=== PATIENT | male | born 1950 | race Caucasian/White ===

== ENCOUNTER 2018-11-26 08:29 | Inpatient (IN) | payer OTHER ==
[2018-11-26] MEDS ORDERED: SODIUM CHLORIDE 1,000 ML IV STA ×2 (09:03→11:08)
[2018-11-26] MEDS ORDERED: morphine CARPU-JECT 2 MG/1 ML DISP.SYRIN IVPUSH ONE (09:03)
[2018-11-26] MEDS ORDERED: ONDANSETRON 4 MG/2 ML VIAL IVPUSH ONE (09:06)
[2018-11-26] MEDS ORDERED: MORPHINE SULFATE 2 MG/ML VIAL ONE (09:29)
[2018-11-26] MEDS ORDERED: ONDANSETRON 4 MG/2 ML VIAL ONE (09:30)
[2018-11-26 10:05] LABS: BASO % 0.4 % (0-2.0); EOS % 0.7 % (0-4.5); HEMATOCRIT 39.4 % (35.4-49); HEMOGLOBIN 14.1 GM/dL (11.7-16.9); LYMPH % 12.5 % (8-40); MCH 28.9 pg (25.7-33.7); MCHC 35.7 g/dl (32.0-35.9); MEAN CELL VOLUME 80.9 fl (80-96); MEAN PLT VOLUME 9.7 fl (7.5-11.1); MONO % 9.4 % (3.8-10.2); PLATELET COUNT 90 K/MM3 (134-434); RBC 4.87 M/mm3 (4.00-5.60); RDW 15.3 % (11.9-15.9); WHITE BLOOD COUNT 9.8 K/mm3 (4.0-10.0)
--- NOTE | 2018-11-26 10:20 | PDOC ---
History of Present Illness - General Chief Complaint: Pain Stated Complaint: ABDOMINAL PAIN Time Seen by Provider: 11/26/18 09:02 History Source: Patient Exam Limitations: No Limitations - History of Present Illness Travel History: No Initial Comments: 11/26/18 10:27 67-year-old male presents to ED with complaints of diarrhea for the past few days now with generalized abdominal pain greater in the epigastric region. Patient states has had no fever chills but now is nauseous. Patient with history of hepatitis C, asthma, diabetes, and liver disease. Patient denies abdominal distention, history of gastritis, or diverticulitis Timing/Duration: reports: constant, getting worse Quality: reports: moderate, cramping, sharpness Abdominal Pain Onset Location: reports: epigastric, periumbilical Pain Radiation: reports: no radiation Activities at Onset: reports: none Aggravating Factors: improves with: None Alleviating Factors: improves with: None Past History - Travel Traveled outside of the country in the last 30 days: No Close contact w/someone who was outside of country & ill: No - Past Medical History Allergies/Adverse Reactions: Allergies Allergy/AdvReac Type Severity Reaction Status Date / Time No Known Allergies Allergy Verified 05/01/16 18:56 Home Medications: Ambulatory Orders Cyclobenzaprine HCl [Flexeril -] 0 mg PO DAILY 11/26/18 Donepezil HCl 10 mg PO DAILY 11/26/18 Gabapentin 0 mg PO DAILY 11/26/18 Glipizide [Glipizide ER] 0 mg PO BID 11/26/18 Nadolol 0 mg PO DAILY 11/26/18 Potassium Chloride [Klor-Con] 0 meq PO DAILY 11/26/18 Sitagliptin Phosphate [Januvia] 0 mg PO BID 11/26/18 Spironolactone 0 mg PO DAILY 11/26/18 Asthma: Yes COPD: No Diabetes: Yes Liver Disease: Yes (Fatty liver) - Suicide/Smoking/Psychosocial Hx Smoking Status: No Smoking History: Never smoked Have you smoked in the past 12 months: No Number of Cigarettes Smoked Daily: 0 Information on smoking cessation initiated: No Hx Alcohol Use: No Drug/Substance Use Hx: No Substance Use Type: None Hx Substance Use Treatment: No Patient Lives Alone: No Lives with/in: spouse/SO Abd/GI Specific PMHX - Complaint Specific PMHX Colitis: No Diverticulitis: No Gall Bladder Disease: No GERD: No Hepatitis: Yes Irritable Bowel Synd (IBS): No Pancreatitis: No Review of Systems - Review of Systems Able to Perform ROS?: Yes Constitutional: Yes: Loss of Appetite, Weakness HEENTM: No: Symptoms Reported Respiratory: No: Symptoms reported Cardiac (ROS): No: Symptoms Reported ABD/GI: Yes: Diarrhea, Nausea, Poor Appetite, Indigestion. No: Vomiting Musculoskeletal: No: Symptoms Reported Integumentary: No: Symptoms Reported Neurological: No: Symptoms reported Endocrine: No: Symptoms Reported Hematologic/Lymphatic: No: Symptoms Reported *Physical Exam - Vital Signs Last Vital Signs Temp Pulse Resp BP Pulse Ox 97.7 F 95 H 16 114/55 L 97 11/26/18 08:30 11/26/18 08:30 11/26/18 08:30 11/26/18 08:30 11/26/18 08:30 - Physical Exam General Appearance: Yes: Nourished, Appropriately Dressed. No: Apparent Distress HEENT: positive: EOMI, RTIIKA, TMs Normal, Pharynx Normal, Scleral Icterus (R), Scleral Icterus (L). negative: Pale Conjunctivae Neck: positive: Supple Respiratory/Chest: positive: Lungs Clear, Normal Breath Sounds. negative: Respiratory Distress, Accessory Muscle Use Cardiovascular: positive: Regular Rhythm, Regular Rate. negative: Murmur Gastrointestinal/Abdominal: positive: Normal Bowel Sounds, Soft, Tenderness ( epigastric and right epigastric and upper periumbilical). negative: Distended Musculoskeletal: negative: CVA Tenderness Extremity: positive: Normal Capillary Refill. negative: Pedal Edema Integumentary: positive: Normal Color, Warm, Moist Neurologic: positive: Normal Mood/Affect, Motor Strength 5/5 (ambulatory) Moderate Sedation - Procedure Monitoring Vital Signs: Procedure Monitoring Vital Signs Temperature 97.7 F 11/26/18 08:30 Pulse Rate 95 H 11/26/18 08:30 Respiratory Rate 16 11/26/18 08:30 Blood Pressure 114/55 L 11/26/18 08:30 O2 Sat by Pulse Oximetry (%) 97 11/26/18 08:30 ED Treatment Course - LABORATORY CBC & Chemistry Diagram: 11/26/18 09:38 11/26/18 11:50 Medical Decision Making - Medical Decision Making 11/26/18 10:02 CC: Diarrhea for 3 days with upper abdominal pain now with nausea. Patient with history of hepatitis C and diabetes Exam: Upper abdominal tenderness bilateral eye icterus Plan: Labs, urine, abdominal CT, morphine, IV fluids and protonic's 11/26/18 11:07 Laboratory Tests 11/26/18 11/26/18 11/26/18 09:38 09:38 09:38 WBC 9.8 Hgb 14.1 Hct 39.4 Plt Count 90 L Neutrophils % 77.0 Lactic Acid 3.7 H* Ammonia 139.36 H Patient ordered for second lactic acid, IV fluids along with lactulose. Patient pending CT 11/26/18 13:57 Laboratory Tests 11/26/18 11:50 Lipase 82 11/26/18 15:02 X-ray shows prominent heart with no acute chest pathology. Patient went to CT awaiting results. 11/26/18 17:10 Case discussed with hospitalist and will admit to [facility]. CT results pending. *DC/Admit/Observation/Transfer Diagnosis at time of Disposition: Hepatitis C, Hyperammonemia, Abdominal pain, Hyperbilirubinemia - Discharge Dispostion Decision to Admit order: Yes - Referrals - Patient Instructions - Post Discharge Activity
[2018-11-26] MEDS ORDERED: PANTOPRAZOLE SODIUM 40 MG/100 ML BAG IVPB ONE (10:34)
[2018-11-26] MEDS ORDERED: PANTOPRAZOLE SODIUM 40 MG in SODIUM CHLORIDE 100 ML IVPB ONE (10:37)
[2018-11-26] MEDS ORDERED: LACTULOSE 20 GM/30 ML UDC (FOR ORAL USE ONLY) PO ONE (11:06)
[2018-11-26 11:12] LABS: URINE APPEARANCE CLEAR; URINE BILIRUBIN NEGATIVE (<2.0 mg/dL); URINE GLUCOSE (UA) 3+ (NEGATIVE); URINE KETONE TRACE (NEGATIVE); URINE LEUK ESTERASE NEGATIVE (NEGATIVE); URINE NITRITE NEGATIVE (NEGATIVE); URINE PROTEIN NEGATIVE (NEGATIVE); URINE UROBILINOGEN 4.0 E.U/dl mg/dL (0.2-1.0)
[2018-11-26 11:22] LABS: URINE COLOR YELLOW
[2018-11-26] MEDS ORDERED: LACTULOSE 20 GM/30 ML UDC (FOR ORAL USE ONLY) ONE (11:30)
[2018-11-26 12:13] LABS: VENOUS PH 7.39 (7.32-7.42); VENOUS PO2 43.9 mmHg (28-48)
[2018-11-26 12:24] LABS: INR 1.25 (0.83-1.09); PROTHROMBIN TIME (PATIENT) 14.8 SEC (9.7-13.0)
[2018-11-26 12:50] LABS: ALBUMIN 2.7 g/dl (3.4-5.0); ALK PHOS 88 U/L (45-117); ANION GAP 12 MMOL/L (8-16); BILIRUBIN,TOTAL 4.6 mg/dL (0.2-1); BLOOD UREA NITROGEN 25 mg/dL (7-18); CALCIUM 7.3 mg/dL (8.5-10.1); CHLORIDE 98 mmol/L (98-107); CO2 23 mmol/L (21-32); CREATININE 1.1 mg/dL (0.55-1.3); POTASSIUM 3.8 mmol/L (3.5-5.1); SGOT/AST 60 U/L (15-37); SGPT/ALT 48 U/L (13-61); SODIUM 133 mmol/L (136-145); TOT PROT 6.3 g/dl (6.4-8.2)
[2018-11-26 12:58] LABS: GLUCOSE,RANDOM 312 mg/dL (74-106)
[2018-11-26 13:56] LABS: LIPASE 82 U/L (73-393)
--- NOTE | 2018-11-26 16:21 | EKG ---
Test Reason : Blood Pressure : / mmHG Vent. Rate : 090 BPM Atrial Rate : 090 BPM P-R Int : 172 ms QRS Dur : 150 ms QT Int : 438 ms P-R-T Axes : 048 -06 139 degrees QTc Int : 535 ms NORMAL SINUS RHYTHM LEFT BUNDLE BRANCH BLOCK ABNORMAL ECG WHEN COMPARED WITH ECG OF 21-JUL-2010 05:10, VENT. RATE HAS INCREASED BY 39 BPM QT HAS LENGTHENED Confirmed by KELLI BARAJAS, CHELY ([id number]) on 11/26/2018 4:20:55 PM Referred By: Confirmed By:CHELY PEREIRA MD
[2018-11-26] MEDS ORDERED: PROCHLORPERAZINE INJECTION 10 MG/2 ML VIAL IVPB PRN (17:51)
[2018-11-26] MEDS ORDERED: LACTATED RINGERS SOLUTION 1,000 ML/1,000 ML INFUS.BAG IV SCH (18:00)
--- NOTE | 2018-11-26 18:06 | HP ---
CHIEF COMPLAINT: ' Abdominal pain, nausea and diarrhoea" PCP: Dr. Horan HISTORY OF PRESENT ILLNESS: Patient is a 67 year old male presented to the ED with the chief complaint of " Abdominal pain, nausea and diarrhoea x 3 days". As per the patient, he developed abdominal pain suddenly, located mostly in the epigastric area, stabbing in nature, initially mild that got worse to 7/10 in intensity, non radiating. Aggravated with food intake. It was associated with nausea and watery diarrhoea > 10 episodes/day, no mucus, no blood. His symptoms got worse hence came in to the ED for further evaluation and treatment. In the ED, he had one episode of coffee ground emesis after he took the contrast. No prior episodes of vomiting. Patient reports he had EGD and Colonoscopy remotely, was found to have polyps which was removed. Doesn't remember the details or the GI doctor's name. Denies any sick contact, fever, chills, rigors, sweating, chest pain, sob, cough , palpitation. Bladder habit normal. Sleep normal. Appetite decreased. ER course was notable for: (1) Afebrile, no leukocytosis, lactic acidosis of 3.7, T. bli 4.6, Ammonia 139 , Random glucose 312 (2) Abdominal/Pelvis CT: Cirrhosis, pancreatitis, ?acute inflammation/ infectious colitis, vs. possible portal colopathy, L sided colonic fecal retention (3) EKG: NSR, Qtc 535 (4) IV NS Recent Travel: None PAST MEDICAL HISTORY: DM; Hepatitis C(unsure if he was treated); Asthma; HTN; Anemia; cirrhosis, portal hypertension PAST SURGICAL HISTORY: B/L cataract removal, Left arm cellulitis with an abscess s/p drainage Social History: Smoking: Denies Alcohol: Occasionally Drugs: Denies Family History: Non contributory Occupation: retired, worked at [employer] Allergies No Known Allergies Allergy (Verified 05/01/16 18:56) HOME MEDICATIONS: Home Medications Medication Instructions Recorded Cyclobenzaprine HCl [Flexeril -] 0 mg PO DAILY 11/26/18 Donepezil HCl 10 mg PO DAILY 11/26/18 Gabapentin 0 mg PO DAILY 11/26/18 Glipizide [Glipizide ER] 0 mg PO BID 11/26/18 Nadolol 0 mg PO DAILY 11/26/18 Potassium Chloride [Klor-Con] 0 meq PO DAILY 11/26/18 Sitagliptin Phosphate [Januvia] 0 mg PO BID 11/26/18 Spironolactone 0 mg PO DAILY 11/26/18 REVIEW OF SYSTEMS CONSTITUTIONAL: Absent: fever, chills, diaphoresis, generalized weakness, malaise, loss of appetite, weight change HEENT: Absent: rhinorrhea, nasal congestion, throat pain, throat swelling, difficulty swallowing, mouth swelling, ear pain, eye pain, visual changes CARDIOVASCULAR: Absent: chest pain, syncope, palpitations, irregular heart rate, lightheadedness , peripheral edema RESPIRATORY: Absent: cough, shortness of breath, dyspnea with exertion, orthopnea, wheezing, stridor, hemoptysis GASTROINTESTINAL: Present: abdominal pain, nausea, vomiting, diarrhea Absent: abdominal distension, constipation, melena, hematochezia GENITOURINARY: Absent: dysuria, frequency, urgency, hesitancy, hematuria, flank pain, genital pain MUSCULOSKELETAL: Absent: myalgia, arthralgia, joint swelling, back pain, neck pain SKIN: Absent: rash, itching, pallor HEMATOLOGIC/IMMUNOLOGIC: Absent: easy bleeding, easy bruising, lymphadenopathy, frequent infections ENDOCRINE: Absent: unexplained weight gain, unexplained weight loss, heat intolerance, cold intolerance NEUROLOGIC: Absent: headache, focal weakness or paresthesias, dizziness, unsteady gait, seizure, mental status changes, bladder or bowel incontinence PSYCHIATRIC: Absent: anxiety, depression, suicidal or homicidal ideation, hallucinations. PHYSICAL EXAMINATION Vital Signs - 24 hr 11/26/18 08:30 Temperature 97.7 F Pulse Rate 95 H Respiratory 16 Rate Blood Pressure 114/55 L O2 Sat by Pulse 97 Oximetry (%) GENERAL: Middle aged male, lying in bed, nauseaous, Awake, alert, and fully oriented, in no acute distress. EYES: Icterus +, no pallor, EOM intact. THROAT: Dry mucous membranes. NECK: Supple, no JVD LUNGS: B/L lungs clear, no added sounds. HEART: Regular rate and rhythm, normal S1 and S2 without murmur. ABDOMEN: Ascities +, distended veins, shifting dullness +, Soft, tenderness diffusely, BS +, Hepatosplenomegaly couldnt be appreciated. UPPER EXTREMITIES: 2+ pulses, warm, well-perfused. No cyanosis. No clubbing. No peripheral edema. LOWER EXTREMITIES: 2+ pulses, warm, well-perfused. No calf tenderness. No peripheral edema. NEUROLOGICAL: No facial droop, power 5.5 in all extremities, sensation intact Cranial nerves II-XII intact. Normal speech. Gait not observed. PSYCHIATRIC: Cooperative. Good eye contact. Appropriate mood and affect. SKIN: Warm, dry, normal turgor, petechia on the Lower extremities. Laboratory Results - last 24 hr 11/26/18 11/26/18 11/26/18 09:38 09:38 09:38 WBC 9.8 RBC 4.87 Hgb 14.1 Hct 39.4 MCV 80.9 MCH 28.9 MCHC 35.7 RDW 15.3 Plt Count 90 L MPV 9.7 Absolute Neuts (auto) 7.6 Neutrophils % 77.0 Lymphocytes % 12.5 D Monocytes % 9.4 Eosinophils % 0.7 Basophils % 0.4 Nucleated RBC % 0 PT with INR INR PTT (Actin FS) VBG pH POC VBG pCO2 POC VBG pO2 Mixed VBG HCO3 Sodium Cancelled Potassium Cancelled Chloride Cancelled Carbon Dioxide Cancelled Anion Gap Cancelled BUN Cancelled Creatinine Cancelled Creat Clearance w eGFR Cancelled Random Glucose Cancelled Lactic Acid 3.7 H* Calcium Cancelled Magnesium Cancelled Total Bilirubin Cancelled AST Cancelled ALT Cancelled Alkaline Phosphatase Cancelled Ammonia Troponin I Total Protein Cancelled Albumin Cancelled Lipase Cancelled Urine Color Urine Appearance Urine pH Ur Specific [place] Urine Protein Urine Glucose (UA) Urine Ketones Urine Blood Urine Nitrite Urine Bilirubin Urine Urobilinogen Ur Leukocyte Esterase 11/26/18 11/26/18 11/26/18 09:38 10:12 11:50 WBC RBC Hgb Hct MCV MCH MCHC RDW Plt Count MPV Absolute Neuts (auto) Neutrophils % Lymphocytes % Monocytes % Eosinophils % Basophils % Nucleated RBC % PT with INR 14.80 H INR 1.25 H PTT (Actin FS) 27.0 VBG pH POC VBG pCO2 POC VBG pO2 Mixed VBG HCO3 Sodium Potassium Chloride Carbon Dioxide Anion Gap BUN Creatinine Creat Clearance w eGFR Random Glucose Lactic Acid Calcium Magnesium Total Bilirubin AST ALT Alkaline Phosphatase Ammonia 139.36 H Troponin I Total Protein Albumin Lipase Urine Color Yellow Urine Appearance Clear Urine pH 6.0 Ur Specific [place] 1.026 Urine Protein Negative Urine Glucose (UA) 3+ H Urine Ketones Trace H Urine Blood Negative Urine Nitrite Negative Urine Bilirubin Negative Urine Urobilinogen 4.0 e.u/dl Ur Leukocyte Esterase Negative 11/26/18 11/26/18 11:50 11:59 WBC RBC Hgb Hct MCV MCH MCHC RDW Plt Count MPV Absolute Neuts (auto) Neutrophils % Lymphocytes % Monocytes % Eosinophils % Basophils % Nucleated RBC % PT with INR INR PTT (Actin FS) VBG pH 7.39 POC VBG pCO2 37.0 L POC VBG pO2 43.9 Mixed VBG HCO3 22.2 Sodium 133 L Potassium 3.8 Chloride 98 Carbon Dioxide 23 Anion Gap 12 BUN 25 H Creatinine 1.1 Creat Clearance w eGFR > 60 Random Glucose 312 H* Lactic Acid Calcium 7.3 L Magnesium Total Bilirubin 4.6 H AST 60 H ALT 48 Alkaline Phosphatase 88 Ammonia Troponin I 0.02 Total Protein 6.3 L Albumin 2.7 L Lipase 82 Urine Color Urine Appearance Urine pH Ur Specific [place] Urine Protein Urine Glucose (UA) Urine Ketones Urine Blood Urine Nitrite Urine Bilirubin Urine Urobilinogen Ur Leukocyte Esterase Abdomen/Pelvis CT with contrast: Concentric continuous wall edema is seen along the length of the cecum and ascending colon with possible additional involvement of the transverse colon - ? representing acute inflammatory/ infectious colitis versus possible portal colopathy. Moderate left-sided colonic fecal retention. There is possible mild concentric wall thickening involving several mid abdominal small bowel loops - ? due to etiologies such as enteritis, advanced hepatic disease, or hypoproteinemia. Hepatic cirrhosis is again noted in comparison to a 2010 CT study. Splenomegaly is again seen which appears mildly increased. There is possible mild edematous swelling of the pancreatic head and body. Clinical/laboratory correlation is suggested in regards to possible acute pancreatitis. There also appears to be mild peripancreatic edema which may be secondary to pancreatitis versus on the basis of generalized edema. Varices are noted as on the prior study. Interval development of a small to moderate amount of ascites is noted. Cholelithiasis. ASSESSMENT/PLAN: Patient is a 67 year old male with significant past medical history of DM; Hepatitis C(unsure if he was treated); Asthma; HTN; Anemia; cirrhosis, portal hypertension presented to the ED with the chief complaint of " Abdominal pain, nausea and diarrhoea x 3 days". # Diarrhoea could be from viral gastroenteritis c/o diarrhoea x 3 days, watery, non bloody, no mucus. Patient reported to another physician he was on abx for "Gall bladder"- r/o c. diff (ordered) Continue IV NS @ 125 mls.hr Stool studies ordered Will send flu # Upper GI bleed one episode of coffee ground emesis. Started on PPI drip. Keep NPO. Hb 14, repeat Hb 12.8 Questionable melana. Plan was to start on Octreotide drip for possible variceal bleed but not started because of prolonged Qtc and no indication at this time. Appreciate GI consult # Ascites Ascites with hx of portal hypertension. Treat empirically with IV Ceftriaxone 1gm daily (discussed with Dr. Pardo). # Portal hypertension Continue Nadolol (home dose). Doppler of portal vein and hepatic veins ordered. # Lactic acidosis Lactic acid 3.7. was given IV fluids, repeat lactic acid 4.7. About 500 mls of bolus NS was given and repeat lactic acid ordered. Trend lactic acid It could be due to dehydration # Hyperammonemia- no signs of encephalopathy Ammonia level 139. Could be from liver disease. Ammonia in 2016 was 80 # Cholelithiasis Abdominal ultrasound ordered to r/o cholecystitis. # Elevated transaminitis T. bili 4.6, has been higher in the past. Add Direct bilirubin. Repeat liver enzymes in AM. Ultrasound of abdomen pending. Hepatitis panel pending. # Prolonged Qtc 535 Repeat EKG pending. Avoid qtc prolonging agents. # Thrombocytopenia could be from liver disease. Platelet count 90. At baseline compared to past labs during his visits. No AC. # DM-uncontrolled Random sugar 312. Cover with Insulin sliding scale. Finger stick glucose monitoring. Watch for hypoglycemic episodes. # FEN IV NS @ 125 mls/hr Electrolytes WNL NPO # Prophylaxis For DVT: On SCDs, no ac due to thromocytopenia For GI: On Protonix drip # Code Status: Full Code # Dispo: Admit to Tele for tachycardia and possibility of using Octreotide. Duration of stay unknown. Case discussed with Dr. Barrios and Dr. Pardo. Visit type - Emergency Visit Emergency Visit: Yes ED Registration Date: 11/26/18 Care time: The patient presented to the Emergency Department on the above date and was hospitalized for further evaluation of their emergent condition. - New Patient This patient is new to me today: Yes Date on this admission: 11/26/18 - Critical Care Critical Care patient: No
--- NOTE | 2018-11-26 18:07 | HP ---
CHIEF COMPLAINT: abd pain, nausea/vomiting PCP: Dr. Horan HISTORY OF PRESENT ILLNESS: 67M w/ pmhx of DM, Hep C, asthma, HTN, anemia presents with a 3 day history of abd pain, nausea, and diarrhea. Pain is localized to mid-abdominal region and is worsened with food and laying down, alleviated when sitting up. He admits to having diarrhea about 10-15 times a day, more frequently at night, but denies any blood or mucus, he does admit to watery and foul-smelling stool. He denies any sick contacts and currently lives in a house with his , son, and daughter. He additionally denies chest pain, shortness of breath, dysuria, hematuria, sick contacts. ER course was notable for: (1) Na 133, Lac 3.7, Glu 312, Lac 3.7, now 4.7, T Bili 4.6, AST/ALT 60/48, Alk P 88, Lip 82 (2) 2L NS, Lactulose, Zofran and Morphine given (3) BCx, UCx, Utox, EKG showed QTc 535, CTAP showed ?acute inflammation/ infectious colitis, vs. possible portal colopathy, L sided colonic fecal retention Recent Travel: DR, 1 year ago PAST MEDICAL HISTORY: DM Hepatitis C Asthma HTN Anemia PAST SURGICAL HISTORY: B/l cataract sx L arm sx (had cellulitis) Social History: Smoking: Denies Alcohol: Occasionally Drugs: Denies Family History: Grandmother - DM Denies hx of cancer Allergies No Known Allergies Allergy (Verified 05/01/16 18:56) HOME MEDICATIONS: Home Medications Medication Instructions Recorded Cyclobenzaprine HCl [Flexeril -] 0 mg PO DAILY 11/26/18 Donepezil HCl 10 mg PO DAILY 11/26/18 Gabapentin 0 mg PO DAILY 11/26/18 Glipizide [Glipizide ER] 0 mg PO BID 11/26/18 Nadolol 0 mg PO DAILY 11/26/18 Potassium Chloride [Klor-Con] 0 meq PO DAILY 11/26/18 Sitagliptin Phosphate [Januvia] 0 mg PO BID 11/26/18 Spironolactone 0 mg PO DAILY 11/26/18 REVIEW OF SYSTEMS CONSTITUTIONAL: -f/c, -generalized weakness, +loss of appetite HEENT: -difficulty swallowing, -ear pain, -eye pain, -visual changes CARDIOVASCULAR: -chest pain, -palpitations, -irregular heart rate, + lightheadedness RESPIRATORY: -cough, -sob, -paul, -wheezing GASTROINTESTINAL: +mid-abd pain, +nausea, +vomiting, +diarrhea, +melena GENITOURINARY: -dysuria, -urgency, -frequency, -hematuria, -flank pain MUSCULOSKELETAL: -myalgia, -back pain, -neck pain NEUROLOGIC: +headache, +dizziness, -mental status changes PHYSICAL EXAMINATION Vital Signs - 24 hr 11/26/18 08:30 Temperature 97.7 F Pulse Rate 95 H Respiratory 16 Rate Blood Pressure 114/55 L O2 Sat by Pulse 97 Oximetry (%) GENERAL: AAOx3. No apparent acute distress. Resting in bed, but uncomfortable. HEENT: AT/NC. EOMI. RITIKA. Dry mucus membranes. Scleral icterus. No visible erythema or exudates noted in pharynx. LUNGS: CTA B/L. No wheezes noted. Symmetric chest rise. HEART: Irregular rhythm. Tachycardic. S1, S2. No murmurs noted. ABDOMEN: Soft, diffuse tenderness to palpation in all 4Q's. Visible veins. GI: Visible stool in rectal vault, soft, brown. No visible hemorrhoids noted or palpated upon LAUREN, no blood noted. Normal rectal tone. No masses/lesions noted. No masses palpated upon prostate exam, minimal tenderness. MUSCULOSKELETAL: 5/5 muscle strength in u/l b/l extremities. NEUROLOGICAL: Cranial nerves II-XII intact. Normal speech. PSYCHIATRIC: Cooperative. Good eye contact. Appropriate mood and affect. SKIN: Petechia noted on b/l feet. Laboratory Results - last 24 hr 11/26/18 11/26/18 11/26/18 09:38 09:38 09:38 WBC 9.8 RBC 4.87 Hgb 14.1 Hct 39.4 MCV 80.9 MCH 28.9 MCHC 35.7 RDW 15.3 Plt Count 90 L MPV 9.7 Absolute Neuts (auto) 7.6 Neutrophils % 77.0 Lymphocytes % 12.5 D Monocytes % 9.4 Eosinophils % 0.7 Basophils % 0.4 Nucleated RBC % 0 PT with INR INR PTT (Actin FS) VBG pH POC VBG pCO2 POC VBG pO2 Mixed VBG HCO3 Sodium Cancelled Potassium Cancelled Chloride Cancelled Carbon Dioxide Cancelled Anion Gap Cancelled BUN Cancelled Creatinine Cancelled Creat Clearance w eGFR Cancelled Random Glucose Cancelled Lactic Acid 3.7 H* Calcium Cancelled Magnesium Cancelled Total Bilirubin Cancelled AST Cancelled ALT Cancelled Alkaline Phosphatase Cancelled Ammonia Troponin I Total Protein Cancelled Albumin Cancelled Lipase Cancelled Urine Color Urine Appearance Urine pH Ur Specific [place] Urine Protein Urine Glucose (UA) Urine Ketones Urine Blood Urine Nitrite Urine Bilirubin Urine Urobilinogen Ur Leukocyte Esterase 11/26/18 11/26/18 11/26/18 09:38 10:12 11:50 WBC RBC Hgb Hct MCV MCH MCHC RDW Plt Count MPV Absolute Neuts (auto) Neutrophils % Lymphocytes % Monocytes % Eosinophils % Basophils % Nucleated RBC % PT with INR 14.80 H INR 1.25 H PTT (Actin FS) 27.0 VBG pH POC VBG pCO2 POC VBG pO2 Mixed VBG HCO3 Sodium Potassium Chloride Carbon Dioxide Anion Gap BUN Creatinine Creat Clearance w eGFR Random Glucose Lactic Acid Calcium Magnesium Total Bilirubin AST ALT Alkaline Phosphatase Ammonia 139.36 H Troponin I Total Protein Albumin Lipase Urine Color Yellow Urine Appearance Clear Urine pH 6.0 Ur Specific [place] 1.026 Urine Protein Negative Urine Glucose (UA) 3+ H Urine Ketones Trace H Urine Blood Negative Urine Nitrite Negative Urine Bilirubin Negative Urine Urobilinogen 4.0 e.u/dl Ur Leukocyte Esterase Negative 11/26/18 11/26/18 11:50 11:59 WBC RBC Hgb Hct MCV MCH MCHC RDW Plt Count MPV Absolute Neuts (auto) Neutrophils % Lymphocytes % Monocytes % Eosinophils % Basophils % Nucleated RBC % PT with INR INR PTT (Actin FS) VBG pH 7.39 POC VBG pCO2 37.0 L POC VBG pO2 43.9 Mixed VBG HCO3 22.2 Sodium 133 L Potassium 3.8 Chloride 98 Carbon Dioxide 23 Anion Gap 12 BUN 25 H Creatinine 1.1 Creat Clearance w eGFR > 60 Random Glucose 312 H* Lactic Acid Calcium 7.3 L Magnesium Total Bilirubin 4.6 H AST 60 H ALT 48 Alkaline Phosphatase 88 Ammonia Troponin I 0.02 Total Protein 6.3 L Albumin 2.7 L Lipase 82 Urine Color Urine Appearance Urine pH Ur Specific [place] Urine Protein Urine Glucose (UA) Urine Ketones Urine Blood Urine Nitrite Urine Bilirubin Urine Urobilinogen Ur Leukocyte Esterase ASSESSMENT/PLAN: 67M w/ pmhx of DM, Hep C, asthma, HTN, anemia presents with a 3 day history of abd pain, nausea, and diarrhea. #Abdominal pain/nausea/diarrhea; Ddx includes viral gastroenteritis vs. portal HTN 2/2 cirrhosis vs. C.diff -Pt has had abd pain and nausea for the past 3 days. He also reported to the GI doctor that he had been on antibiotics recently because for his gall bladder. -C.diff/Stool cx/Ova and parasites ordered -Flu swab ordered #Upper GI bleed; Pt was noted to have coffee ground emesis and reports melena, per the ED staff. -start Protonix drip -Per GI, EGD was discussed with pt to r/o esophageal varices -Repeat CBC, Hgb this AM stable at 14.1 -IVf #Ascites; Pt has a hx of portal HTN -CTAP done in 2009 showed cirrhosis; although pt is unable to confirm diagnosis as he is a poor historian. Based on medication list presented by patient (ie. Spironolactone) his PCP may be treating him for possible portal hypertension due to cirrhosis. -Per GI, will hold on Octreotide for now due to prolonged QTc of 535. Will repeat EKG and transfer to tele as pt is tachycardic with prolonged QTc and will need cardiac monitoring if Octreotide drip needs to be started in the future. -Abd U/s ordered -Will also start Ceftriaxone 1 gm QD IVPB since patient has chronic liver disease and has a ? upper GI bleed #Portal HTN -Cont home meds: Nadolol 20 mg PO QD -R/u Abd U/S with doppler of portal and hepatic vein #Elevated Lactate; 3.7 > 4.7 -NS @ 125 -repeat lactate pending #Hyperammonemia; Pt does not currently have sign of hepatic encephalopathy, although was given dose of Lactulose by ED -Pt also had history of elevated ammonia in the past (2016, it was 80) -Monitor for signs of encephalopathy #Cholelithiasis -Abd U/S to r/o acute cholecystitis #Hyperbilirubinemia -T Bili 4.6, but pt has a history of elevated T bili per records. Will order fractionated bilirubin #Thrombocytopenia; Currently 90 -will repeat CBC. Not currently on AC #DM; hyperglycemic at 312. Uncontrolled -BGMs/ISS ACHS -hold home Glypizide, Aspart, Novolog -repeat BGMs #Prophylaxis -Protonix drip -SCDs #FEN -NS @ 125 -[facility]se in AM (Na) -NPO dispo -full code -admit to tele - Visit type - Emergency Visit Emergency Visit: Yes ED Registration Date: 11/26/18 Care time: The patient presented to the Emergency Department on the above date and was hospitalized for further evaluation of their emergent condition. - New Patient This patient is new to me today: Yes Date on this admission: 11/26/18 - Critical Care Critical Care patient: No
[2018-11-26] MEDS ORDERED: SODIUM CHLORIDE 1,000 ML IV SCH (18:30)
[2018-11-26] MEDS ORDERED: OCTREOTIDE ACETATE 1,200 MCG in DEXTROSE 5%-WATER - 488 ML IVPB SCH (19:15)
--- NOTE | 2018-11-26 19:16 | PN ---
Teaching Attending Note Name of Resident: Regina Lopes ATTENDING PHYSICIAN STATEMENT I saw and evaluated the patient. I reviewed the resident's note and discussed the case with the resident. I agree with the resident's findings and plan as documented. SUBJECTIVE: CC: N/V/D x 3 days HPI: 67 y/o male with h/o Hep C , DM , diabetic neuropathy , possible cirrhosis, asthma, and anemia who presented with 3 days history of N/V/Diarrhea. He is poor historian, but reports N/V/D x 3 days with black stool. RN in ER reports his emesis as coffee ground . he denies any fever. he reports decrease in urination. he denies cough. abd pain is generalized. denies recent Abx or NSAIDs use. he reports EGD in past, ? doctor, ? location. he is not sure if he has cirrhosis , and does not see a GI specialist. He denies any upper or lower GI bleed in past. he reports increase in abd size , but lately it has been smaller . he denies any paracentesis in past OBJECTIVE: NAD, awake, alert, oriented. cooperative HEENT: dry MM, symmetric face, round equal pupils,slightly deformed L pupil, reactive to light. no facial droop. no LAP in neck . iteric sclera CV: RRR, tachy . no MRG Lungs: CTAB Abd: soft, distended, + shifting dullness, TTP in LUQ and LLQ. no rebound tenderness or guarding. Nl BS . collateral veins Ext : no edema , no tremor. petichiae on lower legs and feet Neuro: symmetric face, round equal pupils,slightly deformed L pupil, reactive to light. strength 5/5 in upper and lower extremities proximally and distally ASSESSMENT AND PLAN: 67 y/o male with h/o Hep C , DM , diabetic neuropathy , possible cirrhosis, asthma, and anemia who presented with 3 days history of N/V/Diarrhea. he was found to have coffee ground emesis in ER . 1- N/V/D: suspect gastroenteritis. Likely viral . Bowel edema and pancreas edema is likely due to portal hypertension. acute pancreatitis and colitis are less likely . - send c diff and stool cx - IVF to prevent hepato renal syndrome - US - hold off abx for now 2- Upper GI bleed . noted by ER staff to have coffee ground emesis and he reports melena . this might be due to Lola Quiñonez tear but given that he most likely has cirrhosis ( ascitis, varices on CT, thrombocytopenia, Hep C ,splenomegaly, and features of cirrhosis on CT) variceal bleed can't be r/o . - start PPI gtt - start Octeriotide gtt pending GI eval and REcs - repeat CBC stat . - IVF. - NPO for now 3- Possible undiagnosed cirrhosis: had EGD in past, poor f/u and has no GI doc. although has elevated ammonia , he does not have signs of encephalopathy. - he has diarrhea and he was given lactulose in ER - hold lactulose. - IVF to prevent hepatorenal syndrome - GI eval - hep panel panel - hold home nadolol for now 4- DM : place on SSI q 6h while NPO 5- HLOC .
[2018-11-26] MEDS ORDERED: SODIUM CHLORIDE 500 ML IV STA (20:18)
[2018-11-26 21:14] VITALS: BMI 35.4
--- NOTE | 2018-11-26 21:25 | CON.GI ---
Consult Consult Specialty:: GI Referred by:: Hospitalist Service Reason for Consultation:: Chronic liver disease, diarrhea, hematemesis - History of Present Illness Chief Complaint: Diarrhea History of Present Illness: 67M admitted through [facility] ER for evaluation of diarrhea. Called this evening for routine consult for GI bleed. Patient states that he has had diarrhea for 3 days. He believes that he was on Abx 1-2 weeks ago, prescribed by his PMD for "his gallbladder". He explains that he vomited blood in the ER for the 1st time today. Hgb at 9:30 this morning was 14. There has been no repeat CBC as of yet. He thinks he had both EGD and colonoscopy remotely. He knows he has a history od chronic hepatitis C and thinks he may have been treated with "liquid " 15 years ago. He is aware he has liver disease but never followed up with a liver specialist despite being referred by his PMD. He denies melena and states that his diarrhea has been brown / light brown. He describes the stool as foul smelling. His blood glucose at 11am was 312. He states that his blood glucose fluctuates up and down at home, sometimes in the 300's. Currently he complains of abdominal cramping and flatus. CT scan of the abdomen and pelvis on admission this morning revealed concentric wall thickening along the cecum, ascending and transverse colon, left sided fecal retention as well as thickened small bowel loops. admission EKG revealed a prolonged QTc of 535. There is no family history of colorectal cancer or other GI malignancy. - History Source History Provided By: Patient, Medical Record Limitations to Obtaining History: No Limitations - Past Medical History Cardio/Vascular: Yes: HTN, Hyperlipdemia Pulmonary: Yes: Asthma Hepatobiliary: Yes: Cirrhosis, Hepatitis C Endocrine: Yes: Diabetes Mellitus (DM II) - Past Surgical History Additional Surgical History: Left elbow surgery - Alcohol/Substance Use Hx Alcohol Use: No History of Substance Use: reports: Cocaine (Prior intranasal cocaine abuse) - Smoking History Smoking history: Former smoker Have you smoked in the past 12 months: No Aproximately how many cigarettes per day: 0 - Social History Usual Living Arrangement: With Spouse ADL: Independent 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 Place of : [facility] History of Recent Travel: No Home Medications - Allergies Allergies/Adverse Reactions: Allergies Allergy/AdvReac Type Severity Reaction Status Date / Time No Known Allergies Allergy Verified 05/01/16 18:56 - Home Medications Home Medications: Ambulatory Orders Cyclobenzaprine HCl [Flexeril -] 0 mg PO DAILY 11/26/18 Donepezil HCl 10 mg PO DAILY 11/26/18 Gabapentin 0 mg PO DAILY 11/26/18 Glipizide [Glipizide ER] 0 mg PO BID 11/26/18 Nadolol 0 mg PO DAILY 11/26/18 Potassium Chloride [Klor-Con] 0 meq PO DAILY 11/26/18 Sitagliptin Phosphate [Januvia] 0 mg PO BID 11/26/18 Spironolactone 0 mg PO DAILY 11/26/18 Family Disease History - Family Disease History Family Disease History: Other: Father (: 50's: Diabetic complications), Mother (: unclear when as she was not in his life), Brother (3, 1 he knew and is healthy), Daughter (3, healthy) Other Family History: No family history of colorectal cancer, liver disease Review of Systems - Review of Systems Constitutional: denies: Fever Cardiovascular: denies: Chest Pain Respiratory: denies: Cough, SOB Gastrointestinal: reports: Abdominal Pain, Bloating, Diarrhea, Nausea (resolved) , Vomiting, Vomiting Blood. denies: Constipation, Dysphagia, Melena, Rectal Bleeding Physical Exam-GI Vital Signs: Vital Signs Temperature 97.5 F L 11/26/18 21:06 Pulse Rate 107 H 11/26/18 21:06 Respiratory Rate 20 11/26/18 21:06 Blood Pressure 146/92 11/26/18 21:06 O2 Sat by Pulse Oximetry (%) 97 11/26/18 08:30 Constitutional: Yes: Calm Eyes: Yes: Sclera Icterus Cardiovascular: Yes: Tachycardia Respiratory: Yes: CTA Bilaterally Gastrointestinal Inspection: No: Distention ...Auscultate: Yes: Normoactive Bowel Sounds ...Palpate: Yes: Soft. No: Guarding, Hepatomegaly, Splenomegaly, Tenderness, Tenderness, Rebound ...Percussion: No: Tympanitic ...Rectal Exam: Yes: Other (No external lesions, no masses, trace light brown stool, no blood/no melena) Edema: No (No LE edema) Neurological: Yes: Alert. No: [facility] Labs: CBC, BMP 11/26/18 09:38 11/26/18 11:50 INR, PTT INR 1.25 (0.83-1.09) H 11/26/18 11:50 Problem List - Problems (1) Hematemesis Assessment/Plan: One episode of ? coffee ground emesis / hematemesis reported in ED. No further episodes. BP remains elevated however patient tachycardic. ? if nausea potentiated by hyperglycemia. No melena Advsed: Transfer to telemetry given tachycardia as well as potential need for octreotide , especially in the setting of prolonged QTc. Asked telemetry nurse to repeat EKG. Further eval of prolonged QT per primary team. Advised not starting octreotide as of yet due to this unless persistent hematemesis / development of melena. Start IV Abx iin setting of questionable upper GI bleed in background setting of chronic liver disease. Avoid quinolones in setting of QT prolongation. ie ceftriaxone / cefepime. NPO / IV hydration Repeat CBC pending now Repeat Blood glucose. ? gastroparesis. Will need glycemic control Stool for C. Diff study ordered Abdominal US has been ordered. I added doppler of portal vein and hepatic veins as well given small bowel thickening and abdominal cramping (suspect thickening may be on basis of portal HTN w hypoalbuminemia) Discussed EGD with Mr. Diehl for further evaluation and to exclude esophageal varices. Discussed potential risks of the procedure like but not limited to bleeding, perforation requiring surgery to repair, infection, sedation medication effects all of which could be potentially life threatening. He has agreed to the procedure. Q6 Month AFP tumor marker and abdominal US Discussed case with international accounting manager and resident. Code(s): K92.0 - HEMATEMESIS
[2018-11-26] MEDS ORDERED: INSULIN SLIDING SCALE (NOVOLOG) 1 VIAL SQ SCH (22:00)
[2018-11-26 22:14] LABS: HEMATOCRIT 34.6 % (35.4-49); HEMOGLOBIN 12.8 GM/dL (11.7-16.9); MCH 30.4 pg (25.7-33.7); MCHC 37.1 g/dl (32.0-35.9); MEAN CELL VOLUME 81.8 fl (80-96); MEAN PLT VOLUME 9.8 fl (7.5-11.1); PLATELET COUNT 79 K/MM3 (134-434); RBC 4.23 M/mm3 (4.00-5.60); RDW 15.2 % (11.9-15.9); WHITE BLOOD COUNT 9.5 K/mm3 (4.0-10.0)
[2018-11-26] MEDS ORDERED: METOPROLOL TARTRATE 5 MG/5 ML VIAL IVPUSH ONE ×2 (22:26→23:00)
[2018-11-26] MEDS ORDERED: METOPROLOL TARTRATE 5 MG/5 ML VIAL ONE (22:29)
[2018-11-26] MEDS: SODIUM CHLORIDE 1,000 ML IV SCH (22:36)
[2018-11-26] MEDS: PANTOPRAZOLE SODIUM 80 MG in SODIUM CHLORIDE 100 ML IVPB SCH (22:38)
[2018-11-26] MEDS: INSULIN SLIDING SCALE (NOVOLOG) 1 VIAL SQ SCH ×2 (23:02→23:20)
[2018-11-26] MEDS ORDERED: NADOLOL 20 MG TABLET (FP) PO ONE (23:15)
[2018-11-26] MEDS ORDERED: MELATONIN 5 MG TABLETS PO PRN (23:16)
[2018-11-26] MEDS ORDERED: MORPHINE SULFATE 2 MG/ML VIAL IVPUSH ONE (23:18)
[2018-11-26] MEDS ORDERED: SODIUM CHLORIDE 0.9% 500 ML INFUS.BAG IV ONE (23:47)
[2018-11-27 00:31] LABS: BILIRUBIN,DIRECT 1.7 mg/dL (0.0-0.2); MAGNESIUM 2.3 mg/dL (1.8-2.4)
[2018-11-27] MEDS ORDERED: SODIUM CHLORIDE 500 ML IV STA ×2 (02:26→02:47)
[2018-11-27 02:49] LABS: COCAINE, UR NEGATIVE ng/ml (CUTOFF=300); METHADONE, UR NEGATIVE ng/ml (CUTOFF=300); PHENCYCLIDINE,URINE NEGATIVE ng/ml (CUTOFF=25); URINE AMPHETAMINES NEGATIVE ng/ml (CUTOFF=500); URINE BARBITURATES NEGATIVE ng/ml (CUTOFF=200); URINE BENZODIAZEPINES NEGATIVE ng/ml (CUTOFF=200)
[2018-11-27 03:10] LABS: OPIATES, URI POSITIVE ng/ml (CUTOFF=300)
[2018-11-27 04:49] LABS: BASO % 0.6 % (0-2.0); EOS % 2.2 % (0-4.5); HEMATOCRIT 33.6 % (35.4-49); HEMOGLOBIN 12.5 GM/dL (11.7-16.9); LYMPH % 17.9 % (8-40); MCH 30.6 pg (25.7-33.7); MCHC 37.2 g/dl (32.0-35.9); MEAN CELL VOLUME 82.3 fl (80-96); MEAN PLT VOLUME 9.5 fl (7.5-11.1); MONO % 9.5 % (3.8-10.2); NEUT % 69.8 % (42.8-82.8); PLATELET COUNT 84 K/MM3 (134-434); RBC 4.08 M/mm3 (4.00-5.60); RDW 15.4 % (11.9-15.9); WHITE BLOOD COUNT 9.6 K/mm3 (4.0-10.0)
[2018-11-27 05:00] LABS: INR 1.32 (0.83-1.09); PROTHROMBIN TIME (PATIENT) 15.6 SEC (9.7-13.0)
[2018-11-27 05:27] LABS: CO2 24 mmol/L (21-32); CREATININE 0.8 mg/dL (0.55-1.3)
[2018-11-27] MEDS: PANTOPRAZOLE SODIUM 80 MG in SODIUM CHLORIDE 100 ML IVPB SCH (05:27)
[2018-11-27 05:28] LABS: ALBUMIN 2.4 g/dl (3.4-5.0)
[2018-11-27 05:29] LABS: CALCIUM 6.6 mg/dL (8.5-10.1)
[2018-11-27 05:30] LABS: PHOSPHOROUS 0.9 mg/dL (2.5-4.9)
[2018-11-27] MEDS: INSULIN SLIDING SCALE (NOVOLOG) 1 VIAL SQ SCH ×3 (05:38→21:26)
[2018-11-27 05:57] LABS: ALK PHOS 80 U/L (45-117); ANION GAP 7 MMOL/L (8-16); BILIRUBIN,TOTAL 3.4 mg/dL (0.2-1); BLOOD UREA NITROGEN 20 mg/dL (7-18); CHLORIDE 106 mmol/L (98-107); GLUCOSE,RANDOM 183 mg/dL (74-106); MAGNESIUM 2.2 mg/dL (1.8-2.4); POTASSIUM 3.7 mmol/L (3.5-5.1); SGOT/AST 57 U/L (15-37); SGPT/ALT 44 U/L (13-61); SODIUM 137 mmol/L (136-145); TOT PROT 5.6 g/dl (6.4-8.2)
[2018-11-27] MEDS ORDERED: NAPH,MB-DB/K PH,MBDB POWDER PACKET PO ONE (07:05)
[2018-11-27] MEDS ORDERED: POTASSIUM PHOSPHATE 30 MM in SODIUM CHLORIDE 250 ML IVPB ONE (08:15)
[2018-11-27] MEDS ORDERED: cefTRIAXone SODIUM 1 GM VIAL ONE (08:40)
[2018-11-27] MEDS ORDERED: DEXTROSE 5%-WATER - 50 ML IVPB ONE (08:41)
[2018-11-27] MEDS ORDERED: METOPROLOL TARTRATE 5 MG/5 ML VIAL IVPUSH ONE (09:04)
[2018-11-27] MEDS ORDERED: PT OWN MED DRAWER 7, Y5N ONE ×2 (09:07→10:23)
--- NOTE | 2018-11-27 09:53 | PN ---
GI Progress Note Subjective: Patient developed shortness of breath this morning No abdominal pain No rectal bleeding, melena or hematemesis H/H has remained stable Some loose BM's last night, no copious diarrhea reported and no BM for day shift so far - Objective Vital Signs: Vital Signs Temperature 98.8 F 11/27/18 06:00 Pulse Rate 127 H 11/27/18 09:15 Respiratory Rate 15 11/27/18 08:52 Blood Pressure 119/59 L 11/27/18 09:15 O2 Sat by Pulse Oximetry (%) 100 11/27/18 08:52 Constitutional: Calm Eyes: Yes: Sclera Icterus Cardiovascular: Yes: Tachycardia. No: Murmur Respiratory: Yes: CTA Bilaterally Gastrointestinal Inspection: No: Distention ...Auscultate: Yes: Normoactive Bowel Sounds ...Palpate: Yes: Soft. No: Hepatomegaly, Splenomegaly, Tenderness Edema: No (No LE edema) Neurological: Yes: Alert, Oriented. No: [facility] Labs: CBC, BMP 11/27/18 03:20 11/27/18 03:20 INR, PTT INR 1.32 (0.83-1.09) H 11/27/18 03:20 Laboratory Tests 11/26/18 11/27/18 11/27/18 23:15 03:20 03:20 Troponin I 0.16 H 0.27 H Hepatitis A IgM Ab Pending Hep Bs Antigen Pending Hep B Core IgM Ab Pending Hepatitis C Antibody Pending 11/27/18 03:20 Calcium 6.6 L* (corrected 7.8) Phosphorus 0.9 L* Problem List - Problems (1) Hematemesis Assessment/Plan: No coffee ground emesis / hematemesis, with stable H/H Bleeding does not explain tachycardia. patient also not having copious diarrhea , no vomiting and does not seem to be in pain. Benign abdominal exam. ? volume depletion given prior history of diarrhea. ? alternate etiology D/C'd protonix drip Clear liquids Protonix 40mg once daily Work-up of tachycardia/SOB/Prolonged QT/elevated troponins per primary team Replete / correction of lytes IV hydration Await US and doppler of abdomen Deferring upper endoscopy at this time until patient optimized. No overt bleeding and H/H remains stable Code(s): K92.0 - HEMATEMESIS
[2018-11-27] MEDS ORDERED: METOPROLOL TARTRATE 5 MG/5 ML VIAL IVPUSH PRN (09:58)
[2018-11-27] MEDS ORDERED: PANTOPRAZOLE SODIUM 40 MG VIAL IVPUSH SCH (10:00)
[2018-11-27] MEDS ORDERED: NADOLOL 20 MG TABLET (FP) PO SCH (10:00)
[2018-11-27] MEDS ORDERED: SPIRONOLACTONE 25 MG TABLET (FP) PO SCH (10:00)
[2018-11-27] MEDS ORDERED: POTASSIUM CHLORIDE TABS 10 MEQ TABLET.ER (FP) PO SCH (10:00)
[2018-11-27] MEDS ORDERED: CEFTRIAXONE 1 GM in DEXTROSE 5%-WATER - 50 ML IVPB SCH (10:00)
[2018-11-27] MEDS: NAPH,MB-DB/K PH,MBDB POWDER PACKET PO SCH ×2 (10:26→21:28)
[2018-11-27] MEDS: PANTOPRAZOLE 40 MG TABLET (FP) PO SCH (10:26)
--- NOTE | 2018-11-27 11:49 | EKG ---
Test Reason : Blood Pressure : / mmHG Vent. Rate : 139 BPM Atrial Rate : 136 BPM P-R Int : 000 ms QRS Dur : 138 ms QT Int : 372 ms P-R-T Axes : 000 005 166 degrees QTc Int : 566 ms ATRIAL FIBRILLATION WITH RAPID VENTRICULAR RESPONSE WITH PREMATURE VENTRICULAR OR ABERRANTLY CONDUCTED COMPLEXES LEFT BUNDLE BRANCH BLOCK ABNORMAL ECG WHEN COMPARED WITH ECG OF 26-NOV-2018 11:43, ATRIAL FIBRILLATION HAS REPLACED SINUS RHYTHM VENT. RATE HAS INCREASED BY 49 BPM Confirmed by LLOYD VAUGHAN MD ([id number]) on 11/27/2018 11:49:02 AM Referred By: Confirmed By:LLOYD VAUGHAN MD
--- NOTE | 2018-11-27 13:47 | PN ---
Teaching Attending Note Name of Resident: Ventura Alvarez ATTENDING PHYSICIAN STATEMENT I saw and evaluated the patient. I reviewed the resident's note and discussed the case with the resident. I agree with the resident's findings and plan as documented. SUBJECTIVE:seen at 9:30 No fever or chills, . reports chest pain, with lying flat this am , resolved now. lasted 10 min and radiated to neck. felt likel pressure. no diarrhea over night , no abd pain. no SOB OBJECTIVE: NAD, awake, alert, oriented. cooperative dry MM, symmetric face CV: RRR, tachy . no MRG Lungs: CTAB Abd: soft, distended, + shifting dullness, TTP in LUQ and LLQ. no rebound tenderness or guarding. Nl BS . collateral veins Ext : no edema , no tremor. petichiae on lower legs and feet ASSESSMENT AND PLAN: 67 y/o male with h/o Hep C , DM , diabetic neuropathy , possible cirrhosis, asthma, and anemia who presented with 3 days history of N/V/Diarrhea. he was found to have coffee ground emesis in ER . 1- N/V/D: suspect gastroenteritis. Likely viral. now resolved stool cx pending, c diff not done yet. cont to appear volume depleted, cont IVF 2- Upper GI bleed . No recurrence. - cont PPI daily - cont prophylactic Abx per GI. - EGD when stable. - monitor HB 3- Tachycardia: repeat EKG last night showed A fib on my review. this could have been precipitated by acute illness and volume depletion vs structural heart disease - [id number] 2 , but unfortunately can't anticoagulte him due to upper GI bleed . may consider Aspirin if GI is OK and after EGD - increase nadolol to 40 - PRN loporessor IV - check echo - check TSH - card consult 4- Cirrhosis, need further confirmatory tests as outpt - ammonia is elevated but no signs of hepatic encephalopathy - cont nadolol as above - hep panel pending 5- prolonged QT. repeat 566. will follow repeat EKG today - avoid any Qtc prolonging agents 6- DM : change SSI to TIDAC 7- HLOC .
--- NOTE | 2018-11-27 14:30 | CON.CARD ---
Consult Consult Specialty:: Cardiology Referred by:: Hospitalist Medicine Reason for Consultation:: Possible PAF with RVR - History of Present Illness Chief Complaint: Nausea, emesis, diarrhea History of Present Illness: 67 y/o male with h/o Hep C, DM ,diabetic neuropathy , possible cirrhosis, asthma, and anemia who presented with 3 days history of N/V/diarrhea possible coffee grounds emesis with abdominal cramping and flatus. CT scan of the abdomen and pelvis on admission this morning revealed concentric wall thickening along the cecum, ascending and transverse colon, left sided fecal retention as well as thickened small bowel loops and hepatic cirrhosis. He was noted to be in rapid afib with RVR now back in sinus rhythm, denies chest pain, dyspnea, near or true syncope, palpitations, orthopnea, PND or LE edema. - History Source History Provided By: Patient Limitations to Obtaining History: No Limitations - Past Medical History Cardio/Vascular: Yes: HTN, Hyperlipdemia Pulmonary: Yes: Asthma Hepatobiliary: Yes: Cirrhosis, Hepatitis C Endocrine: Yes: Diabetes Mellitus (DM II) - Past Surgical History Additional Surgical History: Left elbow surgery - Alcohol/Substance Use Hx Alcohol Use: No History of Substance Use: reports: Cocaine (Prior intranasal cocaine abuse) - Smoking History Smoking history: Former smoker Have you smoked in the past 12 months: No Aproximately how many cigarettes per day: 0 - Social History Usual Living Arrangement: With Spouse ADL: Independent 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 History of Recent Travel: No Home Medications - Allergies Allergies/Adverse Reactions: Allergies Allergy/AdvReac Type Severity Reaction Status Date / Time shellfish derived Allergy Verified 11/27/18 03:56 - Home Medications Home Medications: Ambulatory Orders Donepezil HCl 5 mg PO DAILY 11/26/18 Gabapentin 300 mg PO DAILY 11/26/18 Glipizide [Glipizide ER] 10 mg PO BID 11/26/18 Nadolol 20 mg PO DAILY 11/26/18 Potassium Chloride [Klor-Con] 10 meq PO DAILY 11/26/18 Sitagliptin Phosphate [Januvia] 50 mg PO BID 11/26/18 Spironolactone 50 mg PO DAILY 11/26/18 Family Disease History - Family Disease History Family Disease History: Other: Father (: 50's: Diabetic complications), Mother (: unclear when as she was not in his life), Brother (3, 1 he knew and is healthy), Daughter (3, healthy) Other Family History: No family history of colorectal cancer, liver disease Review of Systems - Review of Systems Gastrointestinal: reports: Abdominal Pain, Diarrhea, Nausea, Vomiting Vital Signs: Vital Signs Temperature 98.9 F 11/27/18 11:00 Pulse Rate 76 11/27/18 12:35 Respiratory Rate 15 11/27/18 12:51 Blood Pressure 120/75 11/27/18 12:35 O2 Sat by Pulse Oximetry (%) 100 11/27/18 12:51 Constitutional: Yes: No Distress, Calm Neck: Yes: Supple Respiratory: Yes: Regular, Diminished Gastrointestinal: Yes: Soft, Distention, Hypoactive Bowel Sounds Cardiovascular: Yes: Regular Rate and Rhythm JVD: No Carotid Bruit: No Heart Sounds: Yes: S1, S2 Edema: No - Other Data Labs, Other Data: CBC, BMP 11/27/18 03:20 11/27/18 03:20 INR, PTT INR 1.32 (0.83-1.09) H 11/27/18 03:20 Troponin, BNP 11/26/18 11/27/18 11/27/18 23:15 03:20 09:20 Troponin I 0.16 H 0.27 H 0.24 H Troponin, BNP 11/26/18 11/27/18 11/27/18 23:15 03:20 09:20 Troponin I 0.16 H 0.27 H 0.24 H Afib @ 139 with PVC LBBB -> NSR @ 90 LBBB Imaging - Results Chest X-ray: Report Reviewed (NAD) Cat Scan: Report Reviewed (Hepatic cirrhosis) Ultrasound: Report Reviewed (cholelithiasis, advanced hepatocellular disease, small ascites, portal and hepatic veins) Problem List - Problems (1) Paroxysmal atrial fibrillation with rapid ventricular response Code(s): I48.0 - PAROXYSMAL ATRIAL FIBRILLATION (2) Left bundle branch block (LBBB) Code(s): I44.7 - LEFT BUNDLE-BRANCH BLOCK, UNSPECIFIED (3) Cirrhosis Code(s): K74.60 - UNSPECIFIED CIRRHOSIS OF LIVER Qualifiers: Hepatic cirrhosis type: unspecified hepatic cirrhosis Ascites presence: with ascites Qualified Code(s): K74.60 - Unspecified cirrhosis of liver; R18.8 - Other ascites (4) Hematemesis Code(s): K92.0 - HEMATEMESIS Qualifiers: Nausea presence: with nausea Qualified Code(s): K92.0 - Hematemesis (5) Hepatitis C Code(s): B19.20 - UNSPECIFIED VIRAL HEPATITIS C WITHOUT HEPATIC COMA Qualifiers: Viral hepatitis chronicity: chronic Hepatic coma status: without hepatic coma Qualified Code(s): B18.2 - Chronic viral hepatitis C (6) Hyperammonemia Code(s): E72.20 - DISORDER OF UREA CYCLE METABOLISM, UNSPECIFIED (7) Demand ischemia Code(s): I24.8 - OTHER FORMS OF ACUTE ISCHEMIC HEART DISEASE (8) Diabetes Code(s): E11.9 - TYPE 2 DIABETES MELLITUS WITHOUT COMPLICATIONS Qualifiers: Diabetes mellitus type: type 2 Diabetes mellitus complication status: with neurologic complications Diabetes mellitus complication detail: with unspecified neuropathy Assessment/Plan 1. UGI bleed r/o variceal bleed, PUD, portal gastropathy 2. PAF->SR [id number] with RVR 3. LBBB 4. Hep C, ESLD 5. Type 2 DM with neuropathy 6. Anemia and thrombocytopenia 7. Prolonged QTc 8. Demand ischemia P:1. Increased Nadolol 40 qd with uptitration as tolerated, prn Lopressor IV, not a/c candidate due to UGI bleed, continue PPI, await EGD, monitor Hgb, clear liquid diet and d/c IVF, empiric abx course 2. F/u echo and TSH, trops have peaked 3. Avoid QT prolonging agents 4. Thank you for consultative opportunity
[2018-11-27 15:27] LABS: HEMATOCRIT 37.1 % (35.4-49); HEMOGLOBIN 13.5 GM/dL (11.7-16.9); MCH 30.2 pg (25.7-33.7); MCHC 36.3 g/dl (32.0-35.9); MEAN CELL VOLUME 83.3 fl (80-96); MEAN PLT VOLUME 9.3 fl (7.5-11.1); PLATELET COUNT 114 K/MM3 (134-434); RBC 4.46 M/mm3 (4.00-5.60); RDW 15.1 % (11.9-15.9); WHITE BLOOD COUNT 10.9 K/mm3 (4.0-10.0)
--- NOTE | 2018-11-27 16:59 | PN ---
Physical Exam: SUBJECTIVE: Patient seen and examined at bedside. Per overnight nurse, pt has been tachycardic in the 120-130s overnight despite IV BB. Denies further episodes of diarrhea overnight. Chest tightness has resolved, and he denies nausea or vomiting. OBJECTIVE: Vital Signs Temperature 97.6 F 11/27/18 16:00 Pulse Rate 75 11/27/18 16:00 Respiratory Rate 12 11/27/18 16:00 Blood Pressure 129/66 11/27/18 16:00 O2 Sat by Pulse Oximetry (%) 100 11/27/18 12:51 GENERAL: AAOx3. No apparent acute distress. Resting in bed, but uncomfortable. HEENT: AT/NC. EOMI. RITIKA. Dry mucus membranes. Scleral icterus. No visible erythema or exudates noted in pharynx. LUNGS: CTA B/L. No wheezes noted. Symmetric chest rise. HEART: Irregular rhythm. Tachycardic. S1, S2. No murmurs noted. ABDOMEN: Soft, minimal tenderness to palpation on abd. Visible veins. MUSCULOSKELETAL: 5/5 muscle strength in u/l b/l extremities. NEUROLOGICAL: Cranial nerves II-XII intact. Normal speech. PSYCHIATRIC: Cooperative. Good eye contact. Appropriate mood and affect. SKIN: Petechia noted on b/l feet. CBC, BMP 11/27/18 15:15 11/27/18 03:20 Microbiology 11/27/18 02:00 Stool Gram Stain - Final 11/26/18 11:50 Blood - Peripheral Venous Blood Culture - Preliminary NO GROWTH OBTAINED AFTER 24 HOURS, INCUBATION TO CONTINUE FOR 4 DAYS. 11/26/18 11:59 Blood - Peripheral Venous Blood Culture - Preliminary NO GROWTH OBTAINED AFTER 24 HOURS, INCUBATION TO CONTINUE FOR 4 DAYS. 11/26/18 10:12 Urine - Urine Clean Catch Urine Culture - Final NO GROWTH OBTAINED Active Medications Sodium Chloride (Normal Saline -) 1,000 mls @ 125 mls/hr IV ASDIR [facility]BEL Last Admin: 11/26/18 22:36 Dose: 125 mls/hr Ceftriaxone Sodium 1 gm/ (Dextrose) 50 mls @ 100 mls/hr IVPB DAILY [facility]; Protocol Stop: 11/28/18 09:59 Last Admin: 11/27/18 10:26 Dose: 100 mls/hr Insulin Aspart (Novolog Vial Sliding Scale -) 1 vial SQ TIDAC [facility]; Protocol Metoprolol Tartrate (Lopressor Injection -) 5 mg IVPUSH Q4H PRN PRN Reason: HYPERTENSION Nadolol (Corgard -) 40 mg PO DAILY [facility] Pantoprazole Sodium (Protonix -) 40 mg PO DAILY [facility] Last Admin: 11/27/18 10:26 Dose: 40 mg Potassium Phos/Sodium Phos (Phos-Nak Packet -) 1 packet PO BID [facility] Last Admin: 11/27/18 10:26 Dose: 1 packet IMAGING: * Abd U/S and Doppler U/S: Cholelithiasis. Ascites. Small and heterogenous liver w/ no discrete mass. Patent hepatic and portal venous systems. * CTAP: Concentric wall edema along length of cecum and ascending colon w/ possible add'l involvement of transverse colon. Mod L-sided colonic fecal retention. Possible mild concentric wall thickening involving several mid abdominal small bowel loops. Hepatic cirrhosis again noted compared to 2009. Splenomegaly, mildly increased. Possible mild edematous swelling of the pancreatic head and body. Varices noted. Cholelithiasis. * CXR: No acute chest pathology. ASSESSMENT/PLAN: 67M w/ pmhx of DM, Hep C, asthma, HTN, anemia presents with a 3 day history of abd pain, nausea, and diarrhea. #Abdominal pain/nausea/diarrhea; Ddx includes viral gastroenteritis vs. portal HTN 2/2 cirrhosis vs. C.diff -Pt has had abd pain and nausea for the past 3 days. He also reported to the GI doctor that he had been on antibiotics recently because for his gall bladder. -C.diff/Stool cx/Ova and parasites ordered; Stool gram stain neg -Flu swab ordered #Upper GI bleed; Pt was noted to have coffee ground emesis and reports melena, per the ED staff. -Pt has not had any vomiting episodes since yesterday noted by ED staff. His H/ H is stable and diarrhea has since stopped overnight. No bleeding episodes today. -d/c'd Protonix drip -Per GI, start CLD, IV hydration, EGD deferred at this time when pt is stable cardiac yancey as he has been tachycardic overnight. #Tachycardia; Overnight, pt had HR 120-130s. May be due to acute illness vs. volume depletion vs. arrhythmia -Repeat EKG showed increased QTc now 566. Avoid QT prolonging meds -Per cardio, increase Nadolol to 40 mg PO QD with Lopressor 5 mg IVP Q4H PRN -Echo ordered -check TSH #Cirrhosis; Pt has a hx of portal HTN -Cont Nadolol -Hep panel ordered #Elevated Lactate; Lac trending down. 3 > 2.4 today. -NS @ 125 -repeat lactate pending #Hyperammonemia; Pt does not currently have sign of hepatic encephalopathy, although was given dose of Lactulose by ED -Pt also had history of elevated ammonia in the past (2016, it was 80) -Monitor for signs of encephalopathy #Hyperbilirubinemia -T Bili 4.6, but pt has a history of elevated T bili per records -D. Bili 1.7 #Thrombocytopenia; Currently 114. Improved today. #DM; Still hyperglycemic. -BGMs/ISS changed to TIDAC -hold home Glypizide, Aspart, Novolog -repeat BGMs #Prophylaxis -Protonix 40 mg PO QD -SCDs #FEN -NS @ 125 -recheck lytes in AM (Na) -CLD dispo -full code -cont to monitor on tele Visit type - Emergency Visit Emergency Visit: Yes ED Registration Date: 11/26/18 Care time: The patient presented to the Emergency Department on the above date and was hospitalized for further evaluation of their emergent condition. - New Patient This patient is new to me today: No - Critical Care Critical Care patient: No
[2018-11-27 20:10] LABS: ANION GAP 9 MMOL/L (8-16); BLOOD UREA NITROGEN 19 mg/dL (7-18); CHLORIDE 101 mmol/L (98-107); CO2 24 mmol/L (21-32); SODIUM 133 mmol/L (136-145)
[2018-11-27 20:12] LABS: GLUCOSE,RANDOM 376 mg/dL (74-106)
[2018-11-27 20:13] LABS: CALCIUM 6.7 mg/dL (8.5-10.1)
[2018-11-27] MEDS ORDERED: CALCIUM GLUCONATE 10% - 1,000 MG/10 ML VIAL IVPUSH ONE (20:28)
[2018-11-27] MEDS ORDERED: INSULIN (NOVOLOG) ASPART 100 UNITS/ML 10ML VIAL SQ ONE (20:29)
[2018-11-27] MEDS: SODIUM CHLORIDE 1,000 ML IV SCH ×2 (21:27→21:29)
[2018-11-27] MEDS ORDERED: DONEPEZIL HCL 5 MG TABLET (FP) PO SCH (22:00)
[2018-11-27] MEDS ORDERED: CALCIUM GLUCONATE 10% - 1,000 MG/10 ML VIAL IVPB ONE (22:15)
[2018-11-28 04:14] LABS: HEP.C VIRUS AB 0.1 s/co ratio (0.0-0.9)
[2018-11-28] MEDS: SODIUM CHLORIDE 1,000 ML IV SCH ×2 (05:18→22:32)
[2018-11-28] MEDS: INSULIN SLIDING SCALE (NOVOLOG) 1 VIAL SQ SCH ×4 (06:29→22:33)
--- NOTE | 2018-11-28 08:41 | PN ---
Progress Note (short form) - Note Progress Note: Chief Complaint: Events noted, notes reviewed, denies any chest pain or dyspnea , complaining of abdominal distention History of Present Illness: Seen and examined on telemetry. Events noted, notes reviewed, denies any chest pain or dyspnea, complaining of abdominal distention Current Medications: Current Medications Ceftriaxone Sodium 1 gm/ (Dextrose) 50 mls @ 100 mls/hr IVPB DAILY [facility]; Protocol Stop: 11/28/18 09:59 Last Admin: 11/27/18 10:26 Dose: 100 mls/hr Sodium Chloride (Normal Saline -) 1,000 mls @ 125 mls/hr IV ASDIR [facility] Last Admin: 11/28/18 05:18 Dose: 125 mls/hr Insulin Aspart (Novolog Vial Sliding Scale -) 1 vial SQ TIDAC [facility]; Protocol Last Admin: 11/28/18 06:29 Dose: 4 units Metoprolol Tartrate (Lopressor Injection -) 5 mg IVPUSH Q4H PRN PRN Reason: HYPERTENSION Nadolol (Corgard -) 40 mg PO DAILY [facility] Pantoprazole Sodium (Protonix -) 40 mg PO DAILY [facility] Last Admin: 11/27/18 10:26 Dose: 40 mg Potassium Phos/Sodium Phos (Phos-Nak Packet -) 1 packet PO BID [facility] Last Admin: 11/27/18 21:28 Dose: 1 packet Review of Systems Constitutional: denies Chills or Fever Respiratory: denies Cough or Sputum Production Cardiovascular: As noted above Gastrointestinal: denies Nausea, Vomiting, Diarrhea, Constipation but reports Abdominal Distention Genitourinary: denies Frequency or Urgency Musculoskeletal: No symptoms reported - Objective Vital Signs: Last Vital Signs Temp Pulse Resp BP Pulse Ox 97.6 F 80 18 111/52 L 98 11/28/18 06:00 11/28/18 06:00 11/28/18 06:00 11/28/18 06:00 11/27/18 22:00 Intake & Output 11/25/18 11/26/18 11/27/18 11/28/18 23:59 23:59 23:59 23:59 Intake Total 5395 Output Total 450 Balance 4945 Weight 200 lb Neck: Supple Negative JVD No bruit Respiratory: Clear to A&P Cardiovascular: S1, S2 Regular Rate and Rhythm Gastrointestinal: Soft Benign Normal Bowel Sounds Ext: Edema Labs: CBC, BMP 11/28/18 06:30 11/28/18 06:30 Hepatic Panel Total Bilirubin 3.0 mg/dL (0.2-1) H 11/28/18 06:30 Direct Bilirubin 1.4 mg/dL (0.0-0.2) H 11/28/18 06:30 AST 60 U/L (15-37) H 11/28/18 06:30 ALT 43 U/L (13-61) 11/28/18 06:30 Alkaline Phosphatase 77 U/L (45-117) 11/28/18 06:30 Albumin 2.3 g/dl (3.4-5.0) L 11/28/18 06:30 Assessment/Plan ASSESSMENT: 1. Upper gastrointestinal bleed, stable H/H 2. Paroxysmal atrial fibrillation currently in sinus rhythm, [id number] score of 2, not an A/C candidate considering the above noted presentation 3. CAD with evidence of demand ischemic injury 4. Prolonged QTc 5. DM 6. Hepatitis C, ESLD 7. Anemia and thrombocytopenia PLAN: 1. Continue Nadolol as tolerated 2. Not A/C candidate due to upper gastrointestinal bleed 3. Avoid QT prolonging agents 4. Echocardiography pending 5. No contraindication in proceeding with planned GI evaluation including EGD Sandie Sy MD
[2018-11-28 08:45] LABS: ALBUMIN 2.3 g/dl (3.4-5.0); ALK PHOS 77 U/L (45-117); ANION GAP 9 MMOL/L (8-16); BILIRUBIN,DIRECT 1.4 mg/dL (0.0-0.2); BLOOD UREA NITROGEN 15 mg/dL (7-18); CHLORIDE 106 mmol/L (98-107); CO2 24 mmol/L (21-32); CREATININE 0.8 mg/dL (0.55-1.3); GLUCOSE,RANDOM 213 mg/dL (74-106); POTASSIUM 3.4 mmol/L (3.5-5.1); SGOT/AST 60 U/L (15-37); SGPT/ALT 43 U/L (13-61); SODIUM 138 mmol/L (136-145); TOT PROT 5.4 g/dl (6.4-8.2)
[2018-11-28 08:50] LABS: CALCIUM 6.3 mg/dL (8.5-10.1)
[2018-11-28 08:53] LABS: HEMATOCRIT 32.8 % (35.4-49); HEMOGLOBIN 11.8 GM/dL (11.7-16.9); MCH 29.6 pg (25.7-33.7); MCHC 36.1 g/dl (32.0-35.9); MEAN CELL VOLUME 82.1 fl (80-96); MEAN PLT VOLUME 8.7 fl (7.5-11.1); MONO % 9.9 % (3.8-10.2); NEUT % 66.1 % (42.8-82.8); PLATELET COUNT 89 K/MM3 (134-434); RBC 3.99 M/mm3 (4.00-5.60); RDW 15.3 % (11.9-15.9); WHITE BLOOD COUNT 6.5 K/mm3 (4.0-10.0)
[2018-11-28] MEDS ORDERED: PT OWN MED DRAWER 7, Y5N ONE (09:41)
[2018-11-28] MEDS: PANTOPRAZOLE 40 MG TABLET (FP) PO SCH (09:47)
[2018-11-28] MEDS: NAPH,MB-DB/K PH,MBDB POWDER PACKET PO SCH ×2 (09:47→22:32)
[2018-11-28] MEDS: NADOLOL 40 MG TABLET (FP) PO SCH (09:52)
[2018-11-28] MEDS ORDERED: NADOLOL 20 MG TABLET (FP) PO SCH (10:00)
--- NOTE | 2018-11-28 11:48 | PN ---
Physical Exam: SUBJECTIVE: Patient seen and examined at bedside. No pain, tolerating CLD, small brown BMs, no n/v/d. 83 on tele. OBJECTIVE: Vital Signs Period Temp Pulse Resp BP Sys/Shen Pulse Ox Last 24 Hr 97.4 F-98 F 75-80 12-18 111-130/52-79 98-100 GENERAL: A&Ox3, no acute distress EYES: PERRLA, EOMI, sclera mildly icteric ENT: Moist mucus membranes NECK: No JVD LUNGS: CTA, no wheezes HEART: RRR, no murmurs ABDOMEN: distended but nontender, BS present MUSCULOSKELETAL: No CVA Tenderness EXTREMITIES: 2+ pulses, no edema. NEUROLOGICAL: Cranial nerves II-XII intact. Laboratory Results - last 24 hr 11/26/18 11/27/18 11/27/18 22:57 03:20 15:15 WBC 10.9 H RBC 4.46 Hgb 13.5 Hct 37.1 MCV 83.3 MCH 30.2 MCHC 36.3 H RDW 15.1 Plt Count 114 L D MPV 9.3 Absolute Neuts (auto) Neutrophils % Lymphocytes % Monocytes % Eosinophils % Basophils % Nucleated RBC % Sodium Potassium Chloride Carbon Dioxide Anion Gap BUN Creatinine Creat Clearance w eGFR POC Glucometer [phone] Random Glucose Calcium Total Bilirubin Direct Bilirubin AST ALT Alkaline Phosphatase Total Protein Albumin TSH Hepatitis A IgM Ab Negative Hep Bs Antigen Negative Hep B Core IgM Ab Negative Hepatitis C Antibody 0.1 11/27/18 11/27/18 11/28/18 17:30 21:09 05:52 WBC RBC Hgb Hct MCV MCH MCHC RDW Plt Count MPV Absolute Neuts (auto) Neutrophils % Lymphocytes % Monocytes % Eosinophils % Basophils % Nucleated RBC % Sodium 133 L Potassium 4.0 Chloride 101 Carbon Dioxide 24 Anion Gap 9 BUN 19 H Creatinine 1.0 Creat Clearance w eGFR > 60 POC Glucometer 329 201 Random Glucose 376 H* Calcium 6.7 L* Total Bilirubin Direct Bilirubin AST ALT Alkaline Phosphatase Total Protein Albumin TSH Hepatitis A IgM Ab Hep Bs Antigen Hep B Core IgM Ab Hepatitis C Antibody 11/28/18 11/28/18 06:30 06:30 WBC 6.5 RBC 3.99 L Hgb 11.8 Hct 32.8 L MCV 82.1 MCH 29.6 MCHC 36.1 H RDW 15.3 Plt Count 89 L D MPV 8.7 Absolute Neuts (auto) 4.3 Neutrophils % 66.1 Lymphocytes % 19.0 Monocytes % 9.9 Eosinophils % 4.0 D Basophils % 1.0 Nucleated RBC % 0 Sodium 138 Potassium 3.4 L Chloride 106 Carbon Dioxide 24 Anion Gap 9 BUN 15 Creatinine 0.8 Creat Clearance w eGFR > 60 POC Glucometer Random Glucose 213 H Calcium 6.3 L* Total Bilirubin 3.0 H Direct Bilirubin 1.4 H AST 60 H ALT 43 Alkaline Phosphatase 77 Total Protein 5.4 L Albumin 2.3 L TSH 0.58 Hepatitis A IgM Ab Hep Bs Antigen Hep B Core IgM Ab Hepatitis C Antibody Active Medications Generic Name Dose Route Start Last Admin Trade Name Freq PRN Reason Stop Dose Admin Sodium Chloride 1,000 mls @ 125 mls/hr 11/27/18 20:37 11/28/18 05:18 Normal Saline - IV 125 mls/hr ASDIR [facility] Administration Insulin Aspart 1 vial 11/27/18 16:30 11/28/18 06:29 Novolog Vial Sliding Scale - SQ 4 units TIDAC [facility] Administration Protocol Metoprolol Tartrate 5 mg 11/27/18 09:58 Lopressor Injection - IVPUSH Q4H PRN HYPERTENSION Nadolol 40 mg 11/28/18 10:00 11/28/18 09:52 Corgard - PO 40 mg DAILY [facility] Administration Pantoprazole Sodium 40 mg 11/27/18 10:00 11/28/18 09:47 Protonix - PO 40 mg DAILY [facility] Administration Potassium Phos/Sodium Phos 1 packet 11/27/18 10:00 11/28/18 09:47 Phos-Nak Packet - PO 1 packet BID [facility] Administration ASSESSMENT/PLAN: 67M w/ pmhx of DM, Hep C, asthma, HTN, anemia presents with a 3 day history of abd pain, nausea, and diarrhea. #Abdominal pain: resolved, likely 2/2 viral gastroenteritis, no further nausea or vomiting -cultures negative -pain has resolved -can advance diet today to soft -US abdomen showed cholelithiasis, ascites -off abx #Upper GI bleed: no further bleeding -protonix 40 IV daily -advance diet to soft -EGD deferred until likely friday #Tachycardia: resolved, likely 2/2 dehydration -Continue nadolol 40 with lopressor pushes if necessary -TSH normal #Cirrhosis; Pt has a hx of portal HTN -Cont Nadolol -Hep panel ordered #Hyperammonemia; Pt does not currently have sign of hepatic encephalopathy, although was given dose of Lactulose by ED -monitor for AMS #Hyperbilirubinemia: improved today to 3 from 3.4 #Thrombocytopenia: likely 2/2 cirrhosis #DM: BGM 213 -BGM/ISS #Prophylaxis -Protonix 40 mg PO QD -SCDs #FEN -NS @ 125 -recheck lytes in AM (Na) -CLD dispo -full code -cont to monitor on tele Visit type - Emergency Visit Emergency Visit: No - New Patient This patient is new to me today: No - Critical Care Critical Care patient: No
--- NOTE | 2018-11-28 12:25 | PN ---
Teaching Attending Note Name of Resident: Ventura Alvarez ATTENDING PHYSICIAN STATEMENT I saw and evaluated the patient. I reviewed the resident's note and discussed the case with the resident. I agree with the resident's findings and plan as documented. SUBJECTIVE: no fever or chills. No abd pain, had 2 watery BM yesterday. no palpitations . Feels better OBJECTIVE: OBJECTIVE: NAD, awake, alert, oriented. cooperative MMM, symmetric face CV: RRR. no MRG Lungs: CTAB Abd: soft, distended, + shifting dullness, no TTP today . Nl BS . collateral veins Ext : no edema , no tremor. ASSESSMENT AND PLAN: 67 y/o male with h/o Hep C , DM , diabetic neuropathy , possible cirrhosis, asthma, and anemia who presented with 3 days history of N/V/Diarrhea. he was found to have coffee ground emesis in ER . 1- N/V/D: suspect viral gastroenteritis. stool cx pending. c diff neg . 2- Upper GI bleed. No recurrence. - cont PPI daily - received ceftriaxone this am , order fell off. will d/w GI whether Abx are still needed - EGD probbaly on Friday . - monitor HB 3- Paroxismal A fib:now in sinus . tele reviewed - cont nadolol . - follow echo - Nl TSH - not a candidate for full AC. will d/w GI possibility of Aspirin after EGD ( depending on findings ) 4- Cirrhosis, need further confirmatory tests as outpt - ammonia is elevated but no signs of hepatic encephalopathy - cont nadolol as above - add hep B surface Abs 5- prolonged QT. avoid prolonging agents 6- DM: last A1c of 10 . declined insulin treatment in past. - cont SSI and repeat A1c 7- HLOC .
--- NOTE | 2018-11-28 15:13 | PN ---
GI Progress Note Subjective: GI Note ( covering Dr. Khan): No bleeding. Hb stable. Stools are brown. No pain or fever. Minimal ascites on sonogram. Dr Sy has cleared the patient for EGD. - Objective Vital Signs: Vital Signs Temperature 97.9 F 11/28/18 14:00 Pulse Rate 69 11/28/18 14:00 Respiratory Rate 18 11/28/18 14:00 Blood Pressure 123/65 11/28/18 14:00 O2 Sat by Pulse Oximetry (%) 98 11/28/18 09:00 Constitutional: Calm ...Auscultate: Yes: Normoactive Bowel Sounds ...Palpate: Yes: Soft, Other (nontender) Labs: CBC, BMP 11/28/18 06:30 11/28/18 06:30 INR, PTT INR 1.32 (0.83-1.09) H 11/27/18 03:20 Problem List - Problems (1) Hematemesis Assessment/Plan: Bleeding appears to have subsided. Will proceed with EGD on 11/30. Code(s): K92.0 - HEMATEMESIS Qualifiers: Nausea presence: with nausea Qualified Code(s): K92.0 - Hematemesis (2) Cirrhosis Code(s): K74.60 - UNSPECIFIED CIRRHOSIS OF LIVER Qualifiers: Hepatic cirrhosis type: unspecified hepatic cirrhosis Ascites presence: with ascites Qualified Code(s): K74.60 - Unspecified cirrhosis of liver; R18.8 - Other ascites (3) Hepatitis C Code(s): B19.20 - UNSPECIFIED VIRAL HEPATITIS C WITHOUT HEPATIC COMA Qualifiers: Viral hepatitis chronicity: chronic Hepatic coma status: without hepatic coma Qualified Code(s): B18.2 - Chronic viral hepatitis C
[2018-11-29] MEDS: INSULIN SLIDING SCALE (NOVOLOG) 1 VIAL SQ SCH ×4 (06:26→21:11)
--- NOTE | 2018-11-29 07:44 | PN ---
Progress Note (short form) - Note Progress Note: Chief Complaint: Events noted, notes reviewed, denies any chest pain or dyspnea , currently off of the monitor, self D/C History of Present Illness: Seen and examined on telemetry. Events noted, notes reviewed, denies any chest pain or dyspnea, currently off of the monitor, self D/C Current Medications: Current Medications Sodium Chloride (Normal Saline -) 1,000 mls @ 125 mls/hr IV ASDIR [facility] Last Admin: 11/28/18 22:32 Dose: 125 mls/hr Insulin Aspart (Novolog Vial Sliding Scale -) 1 vial SQ ACHS [facility]; Protocol Last Admin: 11/29/18 06:26 Dose: 2 units Metoprolol Tartrate (Lopressor Injection -) 5 mg IVPUSH Q4H PRN PRN Reason: HYPERTENSION Nadolol (Corgard -) 40 mg PO DAILY [facility] Last Admin: 11/28/18 09:52 Dose: 40 mg Pantoprazole Sodium (Protonix -) 40 mg PO DAILY [facility] Last Admin: 11/28/18 09:47 Dose: 40 mg Potassium Phos/Sodium Phos (Phos-Nak Packet -) 1 packet PO BID [facility] Last Admin: 11/28/18 22:32 Dose: 1 packet Review of Systems Constitutional: denies Chills or Fever Respiratory: denies Cough or Sputum Production Cardiovascular: As noted above Gastrointestinal: denies Nausea, Vomiting, Diarrhea, Constipation or Abdominal Discomfort Genitourinary: denies Frequency or Urgency Musculoskeletal: No symptoms reported - Objective Vital Signs: Last Vital Signs Temp Pulse Resp BP Pulse Ox 97.5 F L 72 20 128/63 98 11/29/18 02:00 11/29/18 02:00 11/29/18 02:00 11/29/18 02:00 11/28/18 09:00 Intake & Output 11/26/18 11/27/18 11/28/18 11/29/18 23:59 23:59 23:59 23:59 Intake Total 5395 900 Output Total 450 Balance 4945 900 Weight 200 lb Neck: Supple Negative JVD No bruit Respiratory: Clear to A&P Cardiovascular: S1, S2 Regular Rate and Rhythm Gastrointestinal: Soft Benign Normal Bowel Sounds Ext: Edema Labs: Hepatic Panel Total Bilirubin 3.0 mg/dL (0.2-1) H 11/28/18 06:30 Direct Bilirubin 1.4 mg/dL (0.0-0.2) H 11/28/18 06:30 AST 60 U/L (15-37) H 11/28/18 06:30 ALT 43 U/L (13-61) 11/28/18 06:30 Alkaline Phosphatase 77 U/L (45-117) 11/28/18 06:30 Albumin 2.3 g/dl (3.4-5.0) L 11/28/18 06:30 INR, PTT INR 1.32 (0.83-1.09) H 11/27/18 03:20 Assessment/Plan ASSESSMENT: 1. Upper gastrointestinal bleed, stable H/H, pending AM blood test 2. Paroxysmal atrial fibrillation currently in sinus rhythm, [id number] score of 2, not an A/C candidate considering the above noted presentation/ gastrointestinal bleed 3. CAD with evidence of demand ischemic injury 4. Prolonged QTc 5. DM 6. Hepatitis C, ESLD 7. Anemia and thrombocytopenia PLAN: 1. Continue Nadolol as tolerated 2. Not A/C candidate as noted above due to upper gastrointestinal bleed 3. Avoid QT prolonging agents 4. Echocardiography pending 5. As outlined in the prior note no contraindication in proceeding with planned GI evaluation including EGD 6. Can be transferred to floor care from the cardiovascular point of view, D/C monitor Sandie Sy MD
[2018-11-29 08:05] LABS: ALBUMIN 2.5 g/dl (3.4-5.0); ALK PHOS 86 U/L (45-117); ANION GAP 6 MMOL/L (8-16); BILIRUBIN,TOTAL 3.7 mg/dL (0.2-1); BLOOD UREA NITROGEN 9 mg/dL (7-18); CHLORIDE 108 mmol/L (98-107); CO2 25 mmol/L (21-32); CREATININE 0.7 mg/dL (0.55-1.3); GLUCOSE,RANDOM 193 mg/dL (74-106); POTASSIUM 3.4 mmol/L (3.5-5.1); SGOT/AST 84 U/L (15-37); SGPT/ALT 58 U/L (13-61); SODIUM 138 mmol/L (136-145); TOT PROT 6.1 g/dl (6.4-8.2)
[2018-11-29 08:15] LABS: HEMATOCRIT 36.7 % (35.4-49); HEMOGLOBIN 13.1 GM/dL (11.7-16.9); MCH 29.7 pg (25.7-33.7); MCHC 35.8 g/dl (32.0-35.9); MEAN CELL VOLUME 82.9 fl (80-96); MEAN PLT VOLUME 8.6 fl (7.5-11.1); PLATELET COUNT 106 K/MM3 (134-434); RBC 4.43 M/mm3 (4.00-5.60); RDW 15.6 % (11.9-15.9); WHITE BLOOD COUNT 7.2 K/mm3 (4.0-10.0)
[2018-11-29] MEDS ORDERED: PT OWN MED DRAWER 7, Y5N ONE (10:02)
[2018-11-29] MEDS: PANTOPRAZOLE 40 MG TABLET (FP) PO SCH (10:06)
[2018-11-29] MEDS: NAPH,MB-DB/K PH,MBDB POWDER PACKET PO SCH ×2 (10:06→21:11)
[2018-11-29] MEDS: NADOLOL 40 MG TABLET (FP) PO SCH (10:06)
[2018-11-29] MEDS: SODIUM CHLORIDE 1,000 ML IV SCH (14:57)
[2018-11-29] MEDS ORDERED: POTASSIUM CHLORIDE TABS 20 MEQ TABLET.ER (FP) PO ONE (16:20)
--- NOTE | 2018-11-29 16:20 | PN ---
Progress Note (short form) - Note Progress Note: Subjective: No fever or chills. No abd pain . feels much better , no palpitations . per RN ahd pink urine this am . also had 2 big watery BMs this am , with dark color Objective: Vital Signs: Last Vital Signs Temp Pulse Resp BP Pulse Ox 98.4 F 72 18 120/59 L 98 11/29/18 14:35 11/29/18 14:35 11/29/18 14:35 11/29/18 14:35 11/28/18 09:00 Laboratory Results - last 24 hr 11/28/18 11/28/18 11/29/18 16:25 22:31 06:22 WBC RBC Hgb Hct MCV MCH MCHC RDW Plt Count MPV Sodium Potassium Chloride Carbon Dioxide Anion Gap BUN Creatinine Creat Clearance w eGFR POC Glucometer 275 281 199 Random Glucose Hemoglobin A1c % Calcium Magnesium Total Bilirubin AST ALT Alkaline Phosphatase Total Protein Albumin 11/29/18 11/29/18 11/29/18 07:00 07:00 07:00 WBC 7.2 RBC 4.43 Hgb 13.1 Hct 36.7 MCV 82.9 MCH 29.7 MCHC 35.8 RDW 15.6 Plt Count 106 L MPV 8.6 Sodium 138 Potassium 3.4 L Chloride 108 H Carbon Dioxide 25 Anion Gap 6 L BUN 9 Creatinine 0.7 Creat Clearance w eGFR > 60 POC Glucometer Random Glucose 193 H Hemoglobin A1c % 8.9 H Calcium 7.0 L Magnesium 2.0 Total Bilirubin 3.7 H AST 84 H ALT 58 Alkaline Phosphatase 86 Total Protein 6.1 L Albumin 2.5 L 11/29/18 11:23 WBC RBC Hgb Hct MCV MCH MCHC RDW Plt Count MPV Sodium Potassium Chloride Carbon Dioxide Anion Gap BUN Creatinine Creat Clearance w eGFR POC Glucometer 295 Random Glucose Hemoglobin A1c % Calcium Magnesium Total Bilirubin AST ALT Alkaline Phosphatase Total Protein Albumin NAD, MMM CV: RRR. 3/6 SM at base and apex Lungs: CTAB Abd: soft, distended, + shifting dullness, no TTP. Nl BS . Ext : 1+ pitting edema on LE , no tremor. ASSESSMENT AND PLAN: 67 y/o male with h/o Hep C , DM , diabetic neuropathy , possible cirrhosis, asthma, and anemia who presented with 3 days history of N/V/Diarrhea. he was found to have coffee ground emesis in ER . 1- N/V/D: suspect viral gastroenteritis. stool cx pending. c diff neg . 2- Upper GI bleed. No recurrence. - cont PPI daily - EGD tomorrow . NPO after MN 3- Paroxismal A fib:now in sinus. tele reviewed with no events today - cont nadolol . - echo pending - not a candidate for full AC. will d/w GI possibility of Aspirin after EGD ( depending on findings ) as CHADSVASC is 2 4- Cirrhosis, need further confirmatory tests as outpt - cont nadolol as above - hep panel reviewed, Hep B s Abs pending 5- prolonged QT. avoid prolonging agents 6- DM: last A1c of 10. declined insulin treatment in past. - A1c improved to 8.9 . kathy cont oral agents at dc 7- HLOC . Tx to MEd Surg Visit type - Emergency Visit Emergency Visit: Yes ED Registration Date: 11/26/18 Care time: The patient presented to the Emergency Department on the above date and was hospitalized for further evaluation of their emergent condition. - New Patient This patient is new to me today: No - Critical Care Critical Care patient: No
--- NOTE | 2018-11-29 16:48 | PN ---
GI Progress Note Subjective: GI NOte: No bleeding or pain - Objective Vital Signs: Vital Signs Temperature 98.4 F 11/29/18 14:35 Pulse Rate 72 11/29/18 14:35 Respiratory Rate 18 11/29/18 14:35 Blood Pressure 120/59 L 11/29/18 14:35 O2 Sat by Pulse Oximetry (%) 98 11/28/18 09:00 Laboratory Tests 11/26/18 11/27/18 11/27/18 09:38 03:20 15:15 Hgb 14.1 12.5 13.5 BUN Creatinine Total Bilirubin Direct Bilirubin AST ALT Alkaline Phosphatase 11/28/18 11/28/18 11/29/18 06:30 06:30 07:00 Hgb 11.8 13.1 BUN 15 Creatinine 0.8 Total Bilirubin 3.0 H Direct Bilirubin 1.4 H AST 60 H ALT 43 Alkaline Phosphatase 77 Constitutional: Calm ...Auscultate: Yes: Normoactive Bowel Sounds ...Palpate: Yes: Soft, Other (nontender) Labs: CBC, BMP 11/29/18 07:00 11/29/18 07:00 INR, PTT INR 1.32 (0.83-1.09) H 11/27/18 03:20 Assessment/Plan For EGD tomorrow when Dr Khan returns Problem List - Problems (1) Hematemesis Code(s): K92.0 - HEMATEMESIS Qualifiers: Nausea presence: with nausea Qualified Code(s): K92.0 - Hematemesis (2) Cirrhosis Code(s): K74.60 - UNSPECIFIED CIRRHOSIS OF LIVER Qualifiers: Hepatic cirrhosis type: unspecified hepatic cirrhosis Ascites presence: with ascites Qualified Code(s): K74.60 - Unspecified cirrhosis of liver; R18.8 - Other ascites (3) Hepatitis C Code(s): B19.20 - UNSPECIFIED VIRAL HEPATITIS C WITHOUT HEPATIC COMA Qualifiers: Viral hepatitis chronicity: chronic Hepatic coma status: without hepatic coma Qualified Code(s): B18.2 - Chronic viral hepatitis C
[2018-11-30] MEDS: INSULIN SLIDING SCALE (NOVOLOG) 1 VIAL SQ SCH ×3 (05:59→17:20)
[2018-11-30] MEDS ORDERED: METOPROLOL TARTRATE 5 MG/5 ML VIAL IVPUSH PRN (07:11)
[2018-11-30 08:03] LABS: MAGNESIUM 1.9 mg/dL (1.8-2.4); PHOSPHOROUS 1.3 mg/dL (2.5-4.9); POTASSIUM 3.7 mmol/L (3.5-5.1)
[2018-11-30 09:54] LABS: HEMATOCRIT 32.6 % (35.4-49); HEMOGLOBIN 11.8 GM/dL (11.7-16.9); MCH 29.8 pg (25.7-33.7); MCHC 36.2 g/dl (32.0-35.9); MEAN CELL VOLUME 82.2 fl (80-96); MEAN PLT VOLUME 8.4 fl (7.5-11.1); PLATELET COUNT 91 K/MM3 (134-434); RBC 3.97 M/mm3 (4.00-5.60); RDW 15.7 % (11.9-15.9); WHITE BLOOD COUNT 5.5 K/mm3 (4.0-10.0)
[2018-11-30] MEDS ORDERED: NAPH,MB-DB/K PH,MBDB POWDER PACKET PO SCH (10:00)
[2018-11-30] MEDS ORDERED: PANTOPRAZOLE 40 MG TABLET (FP) PO SCH (10:00)
[2018-11-30] MEDS ORDERED: NADOLOL 40 MG TABLET (FP) PO SCH (10:00)
--- NOTE | 2018-11-30 12:09 | ECHO ---
Name: MARJORIE FOX Exam:Adult Echocardiogram Study Date: 11/30/2018 09:03 AM Age: 67 yrs Reason For Study: Tachycardia Height: 63 in Weight: 200 lb BSA: 1.9 m2 MMode/2D Measurements & Calculations IVSd: 0.94 cm Ao root diam: 2.8 cm LVIDd: 4.1 cm LA dimension: 3.6 cm LVIDs: 2.8 cm LVPWd: 0.99 cm EDV(Teich): 72.2 ml LAV (MOD-bp): 66.2 ml ESV(Teich): 29.4 ml Doppler Measurements & Calculations MV E max jordi: 102.0 cm/sec Med Peak E' Jordi: 7.8 cm/sec MV A max jordi: 95.6 cm/sec Med E/e': 13.0 MV E/A: 1.1 Lat Peak E' Jordi: 5.4 cm/sec MV dec time: 0.17 sec Lat E/e': 18.8 Procedure A complete two-dimensional transthoracic echocardiogram was performed (2D, M-mode, Doppler and color flow Doppler). Technically limited study. Left Ventricle The left ventricle is normal in size. Left ventricular systolic function is normal. Ejection Fraction = 60- 65%. No regional wall motion abnormalities noted. Right Ventricle The right ventricle is not well visualized. Atria The left atrial size is normal. LA volume index is 34 ml/m2. Right atrial size is normal. Mitral Valve The mitral valve is normal in structure and function. There is no mitral regurgitation noted. Tricuspid Valve The tricuspid valve is normal in structure and function. There is mild tricuspid regurgitation. Aortic Valve There is mild aortic sclerosis.;. No aortic regurgitation is present. Pulmonic Valve The pulmonic valve is not well visualized. Great Vessels The aortic root is normal size. Pericardium/Pleura There is no pericardial effusion. Interpretation Summary Technically limited study The left ventricle is normal in size. Left ventricular systolic function is normal. No regional wall motion abnormalities noted. Ejection Fraction = 60-65%. The right ventricle is not well visualized. The left atrial size is normal. Right atrial size is normal. There is mild tricuspid regurgitation. There is mild aortic sclerosis. There is no pericardial effusion. Previous study is not available for comparison Sandeep Yen MD 11/30/2018 12:08 PM
--- NOTE | 2018-11-30 12:25 | PN ---
Progress Note (short form) - Note Progress Note: Brief GI procedure note -- see full report in paper chart for details Normal esophagus, no varices Stomach with moderate portal gastropathy, biopsies taken for H. pylori One tiny duodenal ulcer Recommend Advance diet Start PPI once daily for 4 weeks Await biopsies, treat H. pylori if positive Repeat EGD 2-3 years for variceal screening
[2018-11-30 14:19] VITALS: BP 113/53; PULSE 76; TEMP 98.5
--- NOTE | 2018-11-30 14:25 | PN ---
Teaching Attending Note Name of Resident: Regina Lopes ATTENDING PHYSICIAN STATEMENT I saw and evaluated the patient. I reviewed the resident's note and discussed the case with the resident. I agree with the resident's findings and plan as documented. SUBJECTIVE: No fever or chills. No abd pain. OBJECTIVE: NAD, MMM CV: RRR. 3/6 SM at base and apex Lungs: CTAB Abd: soft, distended, NT. NL BS Ext : 2+ pitting edema on LE , no tremor. ASSESSMENT AND PLAN: 67 y/o male with h/o Hep C , DM , diabetic neuropathy , possible cirrhosis, asthma, and anemia who presented with 3 days history of N/V/Diarrhea. he was found to have coffee ground emesis in ER . 1- N/V/D: due to viral gastroenteritis. c diff neg and stool cx neg 2- Upper GI bleed. No recurrence. - eGD with duodenal ulcer and no varices . - cont PPI - bx taken 3- Paroxismal A fib: now in sinus. - cont nadolol. - echo reviewed - not a candidate for full AC due to bleeding. Will d/w GI if we can use aspirin as EGD did not show active bleed. 4- Cirrhosis, need further confirmatory tests as outpt. - cont nadolol as above - hep panel indicates no vaccination . will need Hep B vaccine as out pt - start lasix and spironolactone at dc - BMP in 1 week 5- prolonged QT. avoid prolonging agents 6- DM: last A1c of 10. declined insulin treatment in past. - A1c improved to 8.9 . kathy cont oral agents at dc 7- Dc home today . GI and card f/u BMB, CBC in 1 week
[2018-11-30] MEDS ORDERED: Insulin (LOG) Aspart 100 UNITS/ML VIAL SQ ONE (14:42)
--- NOTE | 2018-11-30 15:14 | PN ---
Progress Note, Physician Chief Complaint: Events noted Not in distress History of Present Illness: Patient was seen and examined. Awake and alert. Chart was reviewed Denies chest pain, SOB or palpitations - Current Medication List Current Medications: Active Medications Insulin Aspart (Novolog Vial Sliding Scale -) 1 vial SQ ACHS [facility]; Protocol Metoprolol Tartrate (Lopressor Injection -) 5 mg IVPUSH Q4H PRN PRN Reason: HYPERTENSION Nadolol (Corgard -) 40 mg PO DAILY [facility] Last Admin: 11/30/18 09:28 Dose: 40 mg Pantoprazole Sodium (Protonix -) 40 mg PO DAILY [facility] Last Admin: 11/30/18 09:28 Dose: 40 mg Potassium Phos/Sodium Phos (Phos-Nak Packet -) 1 packet PO BID [facility] Last Admin: 11/30/18 14:18 Dose: 1 packet - Objective Vital Signs: Vital Signs Temperature 98.5 F 11/30/18 14:17 Pulse Rate 76 11/30/18 14:17 Respiratory Rate 18 11/30/18 14:17 Blood Pressure 113/53 L 11/30/18 14:17 O2 Sat by Pulse Oximetry (%) 99 11/30/18 12:42 HENT: Yes: Atraumatic Cardiovascular: Yes: Regular Rate and Rhythm, S1, S2 Respiratory: Yes: Diminished Gastrointestinal: Yes: Normal Bowel Sounds, Soft, Abdomen, Obese. No: Tenderness Edema: No Additional Findings/Remarks: Review of Systems Constitutional: denies Chills or Fever Respiratory: denies Cough or Sputum Production Cardiovascular: denies: chest pain, SOB or palpitations Gastrointestinal: denies Nausea, Vomiting, Diarrhea, Constipation or Abdominal Discomfort (+) hematemesis Genitourinary: denies Frequency or Urgency Musculoskeletal: No symptoms reported Labs: CBC, BMP 11/30/18 06:17 11/30/18 06:17 Problem List - Problems (1) Abdominal pain Code(s): R10.9 - UNSPECIFIED ABDOMINAL PAIN (2) Hematemesis Code(s): K92.0 - HEMATEMESIS Qualifiers: Nausea presence: with nausea Qualified Code(s): K92.0 - Hematemesis (3) Paroxysmal atrial fibrillation with rapid ventricular response Code(s): I48.0 - PAROXYSMAL ATRIAL FIBRILLATION (4) Hypertension Code(s): I10 - ESSENTIAL (PRIMARY) HYPERTENSION (5) CAD (coronary artery disease) Code(s): I25.10 - ATHSCL HEART DISEASE OF [place] CORONARY ARTERY W/O ANG PCTRS (6) Demand ischemia Code(s): I24.8 - OTHER FORMS OF ACUTE ISCHEMIC HEART DISEASE Assessment/Plan 1. Upper gastrointestinal bleed, stable H/H 2. Paroxysmal atrial fibrillation currently in sinus rhythm, [id number] score of 2, not an A/C candidate considering the above noted presentation/ gastrointestinal bleed 3. CAD with evidence of demand ischemic injury 4. Prolonged QTc 5. DM 6. Hepatitis C, ESLD 7. Anemia and thrombocytopenia PLAN: 1. Continue Nadolol as tolerated 2. Not A/C candidate as noted above due to upper gastrointestinal bleed 3. Avoid QT prolonging agents 4. Echocardiography was reviewed 5. GI work up in progress. Endoscopy report noted Sandeep Yen MD
--- NOTE | 2018-11-30 17:47 | DS ---
Physical Exam: SUBJECTIVE: Patient seen and examined at bedside. No acute events overnight. OBJECTIVE: Vital Signs Period Temp Pulse Resp BP Sys/Shen Pulse Ox Last 24 Hr 97.3 F-98.5 F 60-77 16-20 101-132/53-68 99-100 PHYSICAL EXAM GENERAL: AAOx3. No apparent acute distress. Resting in bed, but uncomfortable. HEENT: AT/NC. EOMI. RITIKA. Dry mucus membranes. Scleral icterus. No visible erythema or exudates noted in pharynx. LUNGS: CTA B/L. No wheezes noted. Symmetric chest rise. HEART: Irregular rhythm. Tachycardic. S1, S2. No murmurs noted. ABDOMEN: Soft, minimal tenderness to palpation on abd. Visible veins. MUSCULOSKELETAL: 5/5 muscle strength in u/l b/l extremities. NEUROLOGICAL: Cranial nerves II-XII intact. Normal speech. PSYCHIATRIC: Cooperative. Good eye contact. Appropriate mood and affect. SKIN: Petechia noted on b/l feet. LABS Laboratory Results - last 24 hr 11/29/18 11/29/18 11/30/18 07:00 20:40 05:07 WBC RBC Hgb Hct MCV MCH MCHC RDW Plt Count MPV Potassium POC Glucometer 271 201 Phosphorus Magnesium Hep Bs Antibody Non reactive 11/30/18 11/30/18 11/30/18 06:17 06:17 14:16 WBC 5.5 RBC 3.97 L Hgb 11.8 Hct 32.6 L MCV 82.2 MCH 29.8 MCHC 36.2 H RDW 15.7 Plt Count 91 L MPV 8.4 Potassium 3.7 POC Glucometer 234 Phosphorus 1.3 L Magnesium 1.9 Hep Bs Antibody 11/30/18 17:14 WBC RBC Hgb Hct MCV MCH MCHC RDW Plt Count MPV Potassium POC Glucometer 350 Phosphorus Magnesium Hep Bs Antibody HOSPITAL COURSE: Date of Admission:11/26/18 IMAGING: * Abd U/S and Doppler U/S: Cholelithiasis. Ascites. Small and heterogenous liver w/ no discrete mass. Patent hepatic and portal venous systems. * CTAP: Concentric wall edema along length of cecum and ascending colon w/ possible add'l involvement of transverse colon. Mod L-sided colonic fecal retention. Possible mild concentric wall thickening involving several mid abdominal small bowel loops. Hepatic cirrhosis again noted compared to 2010. Splenomegaly, mildly increased. Possible mild edematous swelling of the pancreatic head and body. Varices noted. Cholelithiasis. * CXR: No acute chest pathology. 67M w/ pmhx of DM, Hep C, asthma, HTN, anemia, cirrhosis presents with a 3 day history of abd pain, nausea, and diarrhea. Cdiff, stool culture, blood cultures , and urine cultures were all negative. Pt was found to have viral gastroenteritis. EKG showed irregularly irregular rhythm and prolonged QTc. He was admitted to telemetry for further cardiac monitoring. Upon cardiac eval, pt was found to have new onset afib with RVR and was then started on home dose of Nadolol which was later uptitrated to maintain good HR control. Upon initial presentation, pt also presented with coffee ground emesis after which GI was consulted. Upon GI eval, endoscopy was done that showed normal esophagus w/o varices, stomach with gastropathy, and one small duodenal ulcer. H/H remained stable throughout admission. His symptoms improved and was subsequently discharged with an increased Nadolol dose, and advised to take Aspirin, Protonix , Aldactone, and Lasix. He was also advised to follow up with GI, cardio, and his PCP for further outpatient follow up. He was instructed to have a follow up CBC and CMP, as well as recommendation to repeat EGD in 2-3 years. Date of Discharge: 11/30/18 Minutes to complete discharge: 35 Discharge Summary Reason For Visit: HYPERBILIRUBINEMIA Current Active Problems CAD (coronary artery disease) (Acute) Demand ischemia (Acute) Cirrhosis (Chronic) Hepatitis C (Chronic) Condition: Improved - Instructions Diet, Activity, Other Instructions: You were seen in the hospital for complaints of diarrhea and abdominal pain. In the hospital, you were seen and evaluated and found to have diarrhea and abdominal pain likely due to viral gastroenteritis. You were given IV fluids and monitored. You were also found to have bloody vomit and thus, evaluated by the GI doctor. An endoscopy was done that showed no varices and one small ulcer in a section of your small intestine. Biopsies were taken of your stomach to test for the bacteria, H. Pylori. Additionally, during your hospital stay, you were found to have an elevated heart rate. You were given a beta mary to help control your heart rate, which then stabilized. After further evaluation by the resident care manager rn, you were found to have new onset atrial fibrillation ( abnormal heart rhythm). During your hospital stay, your abdominal pain . You are being discharged home. MEDICATIONS We have made the following changes to your medication(s): Please STOP taking Klor-Con (Potassium Chloride). Please INCREASE your Nadolol dose to 40 mg by mouth once a day. Please START taking Aspirin 81 mg by mouth once a day. Please START taking Protonix 40 mg by mouth once a day. Please START taking Aldactone 50 mg by mouth once a day. Please START taking Lasix 20 mg by mouth once a day. Please continue to take the rest of your home medication(s) as directed. REFERRALS Please follow up with your primary care physician, Dr. Horan, within 1 week. You will need to have repeat blood work to check your CBC and CMP. Please follow up with your GI doctor, Dr. Khan, within 1 week for follow up of your endoscopy results and biopsies. You will need a repeat EGD in 2-3 years for variceal (dilated vein) screening. Please follow up with your resident care manager rn, Dr. Sy, within 1 week for further management of your atrial fibrillation. You will need to have a Hepatitis B vaccine as an outpatient with your PCP. If you experience persistent black stools, worsening chest pain, shortness of breath, difficulty breathing, headaches/dizziness, abdominal pain, mental status changes, please proceed to your nearest emergency room immediately. Referrals: Sandie Sy MD [Staff Physician] - 1 Week Cj Khan DO [Staff Physician] - 1 Week Martinez Horan MD [Non Staff, Medical] - 1 Week Disposition: HOME - Home Medications Comprehensive Discharge Medication List: Ambulatory Orders Donepezil HCl 5 mg PO DAILY 11/26/18 Gabapentin 300 mg PO DAILY 11/26/18 Glipizide [Glipizide ER] 10 mg PO BID 11/26/18 Sitagliptin Phosphate [Januvia] 50 mg PO BID 11/26/18 Aspirin Coated [Ecotrin -] 81 mg PO DAILY #30 tablet.ec 11/30/18 Furosemide [Lasix] 20 mg PO DAILY #30 tablet 11/30/18 Miscellaneous Medical Supply [Outpatient Order] 1 each ASDIR #1 misc Nadolol [Corgard -] 40 mg PO DAILY #30 tablet 11/30/18 Pantoprazole Sodium [Protonix -] 40 mg PO DAILY #30 tablet.ec 11/30/18 Spironolactone [Aldactone] 50 mg PO DAILY #30 tablet 11/30/18 This patient is new to me today: No Emergency Visit: Yes ED Registration Date: 11/26/18 Care time: The patient presented to the Emergency Department on the above date and was hospitalized for further evaluation of their emergent condition. Critical Care patient: No - Discharge Referral Referred to [facility] No
--- NOTE | 2018-12-01 14:50 | PATH ---
Surgical Pathology Report Patient Name: MARJORIE FOX [facility]. Rec. #: [id number] /Age/Gender: 1950 (Age: 67) / M Account: [id number] Location: [facility]/ADOL Taken: 11/30/2018 Received: 11/30/2018 Reported: 12/01/2018 Physicians: MD Jessica Slaughter M.D. Specimen(s) Received BX STOMACH R/O H. PYLORI Clinical History Vomiting blood Postoperative diagnosis: Portal gastropathy, duodenal ulcer Final Diagnosis STOMACH BIOPSY, RULE OUT H. PYLORI: GASTRIC MUCOSA WITH MILD CHRONIC GASTRITIS. IMMUNOSTAIN FOR H. PYLORI IS NEGATIVE. NEGATIVE FOR INTESTINAL METAPLASIA. Electronically Signed Iesha Garcia M.D. Gross Description Received in formalin, labeled "biopsy stomach" are 3 estrada, irregular portions of soft tissue averaging 0.4 cm. in greatest dimension. The specimens are submitted in toto in one cassette. /11/30/2018 [facility]11/30/2018
== END 2018-11-30 19:46 | disposition home or self-care (01) | DRG 194 ==
LOC: JER 08:29 → JERBED 17:11 → J6S 19:40 → J2W 21:42 → J4S 11-27 20:46
PROVIDERS: ADMIT Internal Medicine; ATTEND Internal Medicine
PROC: 0DD68ZX Extraction of Stomach, Via Natural or Artificial Opening Endoscopic, Diagnostic (ICD-10-PCS; principal; 2018-11-30 10:30)
DX: J18.9 Pneumonia, unspecified organism (principal); E87.2 Acidosis; K76.6 Portal hypertension; E72.20 Disorder of urea cycle metabolism, unspecified; R18.8 Other ascites; K92.2 Gastrointestinal hemorrhage, unspecified; I24.8 Other forms of acute ischemic heart disease; B19.20 Unspecified viral hepatitis C without hepatic coma; K26.9 Duodenal ulcer, unspecified as acute or chronic, without hemorrhage or perforation; I48.2 Chronic atrial fibrillation; E11.65 Type 2 diabetes mellitus with hyperglycemia; K31.89 Other diseases of stomach and duodenum; K74.60 Unspecified cirrhosis of liver; K80.20 Calculus of gallbladder without cholecystitis without obstruction; E11.40 Type 2 diabetes mellitus with diabetic neuropathy, unspecified; I48.0 Paroxysmal atrial fibrillation; D69.6 Thrombocytopenia, unspecified; E83.119 Hemochromatosis, unspecified; I44.7 Left bundle-branch block, unspecified; I87.2 Venous insufficiency (chronic) (peripheral); D64.9 Anemia, unspecified; E78.5 Hyperlipidemia, unspecified; A08.4 Viral intestinal infection, unspecified; I45.81 Long QT syndrome; J45.909 Unspecified asthma, uncomplicated; Z87.891 Personal history of nicotine dependence; I25.10 Atherosclerotic heart disease of native coronary artery without angina pectoris
CPT/HCPCS: 36415; 71045-TC-FY; 74177-TC; 76705-TC; 80048; 80053; 80074; 80076; 80307; 81003; 82140; 82248; 82272; 82803; 82962; 83036; 83605; 83690; 83735; 84100; 84132; 84443; 84484; 85025; 85027; 85610; 85730; 86706; 87040; 87045; 87046; 87086; 87205; 87324; 87449; 88305-TC; 93005; 93010; 93306-TC; 93976; 99282-25; J7030

== ENCOUNTER 2019-02-07 13:36 | Inpatient (IN) | payer OTHER ==
[2019-02-07 14:54] LABS: VENOUS PC02 44.9 mmHg (41-51); VENOUS PH 7.39 (7.31-7.41); VENOUS PO2 36.8 mmHg (30-40)
[2019-02-07 14:57] LABS: BASO % 0.7 % (0-2.0); EOS % 0.9 % (0-4.5); HEMATOCRIT 30.8 % (35.4-49); HEMOGLOBIN 10.3 GM/dL (11.7-16.9); LYMPH % 20.8 % (8-40); MCH 29.4 pg (25.7-33.7); MCHC 33.6 g/dl (32.0-35.9); MEAN CELL VOLUME 87.6 fl (80-96); MEAN PLT VOLUME 10.2 fl (7.5-11.1); MONO % 7.1 % (3.8-10.2); NEUT % 70.5 % (42.8-82.8); PLATELET COUNT 71 K/MM3 (134-434); RBC 3.51 M/mm3 (4.00-5.60); RDW 15.4 % (11.9-15.9); WHITE BLOOD COUNT 5.4 K/mm3 (4.0-10.0)
--- NOTE | 2019-02-07 15:09 | PDOC ---
History of Present Illness - General Chief Complaint: Blood Sugar Problem Stated Complaint: Blood Sugar Problem Time Seen by Provider: 02/07/19 13:47 - History of Present Illness Initial Comments: Genaro Diehl is a 68yo man with a PMH of DM, HepC, HTN, asthma, chronic anemia who was brought to the ED by his family due to poor responsiveness. His , son and daughter are at bedside. THey report that he is A&Ox3 at baseline, but starting around 2am today he has not been speaking. His states that overnight he was "just standing and drooling on himself." Family states that he has had similar episodes of AMS in the past, and they always tried to give him sugar on the assumption that his sugar must be low. In the past, he has improved after about 30 minutes. His family notes that he has had episodes of "forgetfulness" recently as well as multiple falls, including a fall down the stairs last week. He has not been evaluated after any of the falls. Family is unaware of any any fevers, cough, vomiting, diarrhea, or sick contacts. Past History - Past Medical History Allergies/Adverse Reactions: Allergies Allergy/AdvReac Type Severity Reaction Status Date / Time shellfish derived Allergy Verified 02/07/19 13:44 Home Medications: Ambulatory Orders Donepezil HCl 5 mg PO DAILY 11/26/18 Gabapentin 300 mg PO DAILY 11/26/18 Glipizide [Glipizide ER] 10 mg PO BID 11/26/18 Sitagliptin Phosphate [Januvia] 50 mg PO BID 11/26/18 Aspirin Coated [Ecotrin -] 81 mg PO DAILY #30 tablet.ec 11/30/18 Furosemide [Lasix] 20 mg PO DAILY #30 tablet 11/30/18 Miscellaneous Medical Supply [Outpatient Order] 1 [place] [facility] [place]olol [Corgard -] 40 mg PO DAILY #30 tablet 11/30/18 Pantoprazole Sodium [Protonix -] 40 mg PO DAILY #30 tablet.ec 11/30/18 Spironolactone [Aldactone] 50 mg PO DAILY #30 tablet 11/30/18 Asthma: Yes COPD: No Diabetes: Yes Liver Disease: Yes (Fatty liver, cirrosis) - Suicide/Smoking/Psychosocial Hx Smoking Status: No Smoking History: Never smoked Have you smoked in the past 12 months: No Number of Cigarettes Smoked Daily: 0 Hx Alcohol Use: No Drug/Substance Use Hx: No Substance Use Type: None Hx Substance Use Treatment: No Review of Systems - Review of Systems Able to Perform ROS?: No (Pt minimally responsive) *Physical Exam - Vital Signs Last Vital Signs Temp Pulse Resp BP Pulse Ox 67 18 118/56 L 97 02/07/19 13:38 02/07/19 13:38 02/07/19 13:38 02/07/19 13:38 - Physical Exam Comments: General: Comfortable, no acute distress HEENT: Eyes closed, MMM, voice normal, normal neck ROM, no LAD Cards: RRR, no murmur appreciated Pulm: Comfortable on room air, clear to auscultation bilaterally Abd: Soft, nondistended. Appears uncomfortable w/ palpation Ext: 2+ pitting edema in BLE to knees. Multiple areas of bruising on extremities , most on LLE. Moves all extremities. Vasc: Extremities WWP. Neuro: Poorly resonsive, will not state name/year/location, says "ow" to sternal rub. Shaking of LUE during exam. Eyes closed throughout. Moves all extremities. Stands w/ assistance. ED Treatment Course - LABORATORY CBC & Chemistry Diagram: 02/07/19 14:30 02/07/19 14:30 - ADDITIONAL ORDERS Additional order review: Laboratory Results 02/07/19 14:07 POC Glucometer 237 02/07/19 14:07 POC Glucometer 237 Medical Decision Making - Medical Decision Making 02/07/19 15:09 Genaro Diehl is a 68yo man with a PMH of DM, HepC, HTN, asthma, chronic anemia who was brought to the ED by his family due to acute onset of poor responsiveness since 2am today. His and children are unaware of any recent symptoms though note that he has had similar symptoms in the past that they attributed to hypoglycemia. They also note multiple recent falls. - Ddx includes infection, new/old intracranial bleed from falls, high ammonia, intoxication. Shaking of L hand observed, possible new onset seizures. Consider psych. Concern for head trauma given multiple bruises on extremities and report of falls. - CBC, chemistry, lactate, trop, cultures, coags, urine tox, acetaminophen level , salicylate level, UA, urine culture. CXR, CT head, EKG - No focal symptoms, abnormal vitals 02/07/19 16:03 - Labs reviewed. No concerning abnormalities - UA, culture, drug screen to be completed - PT needs CT. Additional concern for possible intracranial bleed as family reports that he has been increasingly forgetful recently had has had several falls. 02/07/19 16:55 - CT head, CXR completed. Reviewed in ED. No acute pathology appreciated. Radiology read pending 02/07/19 17:50 - CT head and duplex LLE read. No significant abnormalities on CT. Duplex negative for thrombus - LLE xrays completed. Reviewed. No fracture or dislocation noted - Straight cath completed, UA, culture, and tox sent. Will admit after resulted. 02/07/19 19:10 - Urine tox negative - Sign out given to Dr Guzmán for admission. Discussed with Dr Macias. Raya Herrera PGY1 *DC/Admit/Observation/Transfer Diagnosis at time of Disposition: Altered mental status - Discharge Dispostion Decision to Admit order: Yes - Referrals - Patient Instructions - Post Discharge Activity
--- NOTE | 2019-02-07 15:11 | PDOC ---
Attending Attestation - Resident Resident Name: JavierRaya - ED Attending Attestation I have performed the following: I have examined & evaluated the patient, The case was reviewed & discussed with the resident, I agree w/resident's findings & plan, Exceptions are as noted - HPI HPI: 02/07/19 16:16 The patient is a 68-year-old male, with a past medical history of asthma, DM, fatty liver, HCV and cirrhosis, who presents to the ED with 1 day of altered mental status. Per patients family he has been more confused, sleepy, and weak. The patient experienced a similar episode in the past and was found to have gastroenteritis per the family. Family also reports that pt falls frequently, unknown if he is passing out or striking his head. Denies any recent medication changes or recent travel. Pt denies CP, SOB, abd pain, N/V. HPI is limited due to patients clinical condition. - Physicial Exam PE: 02/07/19 16:40 GENERAL: Eyes closed, opens when asked, frequently yawning, does not answer questions appropriately, repeats "good morning darling." AOx1 to name HEAD: No signs of trauma EYES: PERRLA, EOMI, sclera anicteric, conjunctiva clear ENT: Nares patent, oropharynx clear without exudates. Moist mucosa NECK: Normal ROM, supple, no lymphadenopathy, JVD, or masses LUNGS: Breath sounds equal, clear to auscultation bilaterally. No wheezes, and no crackles HEART: Regular rate and rhythm, normal S1 and S2, no murmurs, rubs or gallops ABDOMEN: Soft, nontender, normoactive bowel sounds. No guarding, no rebound. No masses. 2+ pulses distally x4. EXTREMITIES: Normal range of motion, +edema to LLE from knee to ankle with diffuse bruisng and ttp BACK: no midline cervical, thoracic, lumbar ttp, deformities or step offs NEUROLOGICAL: Normal speech, cranial nerves intact, equal strength and sensation b/l SKIN: multiple bruises in multiple stages of healing and superficial abrasions on extremities, especially LLE - Medical Decision Making 02/07/19 16:45 68yo M with MMP including cirrhosis, DM presents to the ED with AMS. Vitals with mild hypothermia, otherwise unremarkable. Differential broad including infections vs toxic vs metabolic vs neurologic vs ischemic pathology. Plan for broad w/u, anticipate admission.
[2019-02-07 15:30] LABS: ALBUMIN 2.5 g/dl (3.4-5.0); ALK PHOS 101 U/L (45-117); ANION GAP 7 MMOL/L (8-16); BILIRUBIN,TOTAL 3.4 mg/dL (0.2-1); BLOOD UREA NITROGEN 36 mg/dL (7-18); CALCIUM 8.6 mg/dL (8.5-10.1); CHLORIDE 107 mmol/L (98-107); CO2 28 mmol/L (21-32); GLUCOSE,RANDOM 228 mg/dL (74-106); INR 1.21 (0.83-1.09); LIPASE 51 U/L (73-393); MAGNESIUM 2.1 mg/dL (1.8-2.4); N-TERMINAL BNP 469.4 pg/ml (5-125); POTASSIUM 4.2 mmol/L (3.5-5.1); PROTHROMBIN TIME (PATIENT) 14.3 SEC (9.7-13.0); SGOT/AST 46 U/L (15-37); SGPT/ALT 24 U/L (13-61); SODIUM 142 mmol/L (136-145); TOT PROT 6.8 g/dl (6.4-8.2)
[2019-02-07 15:32] LABS: ACTIVATED PTT 35.3 SECONDS (25.2-36.5)
--- NOTE | 2019-02-07 17:51 | EKG ---
Test Reason : Blood Pressure : / mmHG Vent. Rate : 077 BPM Atrial Rate : 077 BPM P-R Int : 176 ms QRS Dur : 144 ms QT Int : 468 ms P-R-T Axes : 071 022 097 degrees QTc Int : 529 ms NORMAL SINUS RHYTHM LEFT BUNDLE BRANCH BLOCK ABNORMAL ECG WHEN COMPARED WITH ECG OF 26-NOV-2018 21:55, SINUS RHYTHM HAS REPLACED ATRIAL FIBRILLATION VENT. RATE HAS DECREASED BY 62 BPM T WAVE INVERSION NO LONGER EVIDENT IN INFERIOR LEADS NONSPECIFIC T WAVE ABNORMALITY HAS REPLACED INVERTED T WAVES IN LATERAL LEADS Confirmed by NOLVIA BARAJAS, ADDIE ([id number]) on 02/07/2019 5:51:18 PM Referred By: Confirmed By:ADDIE DE SOUZA MD
[2019-02-07 18:13] LABS: EPI CELLS 1.6 /HPF (0-5); PH,URINE 5.5 (5.0-8.0); URINE APPEARANCE CLEAR; URINE BACTERIA 1.9 /hpf (NEGATIVE); URINE BILIRUBIN 1+ (NEGATIVE); URINE CASTS 17 /hpf (0-8); URINE COLOR DK YELLOW; URINE GLUCOSE (UA) TRACE (NEGATIVE); URINE KETONE TRACE (NEGATIVE); URINE LEUK ESTERASE TRACE (NEGATIVE); URINE NITRITE NEGATIVE (NEGATIVE); URINE PROTEIN 3+ (NEGATIVE); URINE RBC 30 /hpf (0-4); URINE WBC 5 /hpf (0-5)
[2019-02-07 18:46] LABS: COCAINE, UR NEGATIVE ng/ml (CUTOFF=300); METHADONE, UR NEGATIVE ng/ml (CUTOFF=300); OPIATES, URI NEGATIVE ng/ml (CUTOFF=300); PHENCYCLIDINE,URINE NEGATIVE ng/ml (CUTOFF=25); URINE AMPHETAMINES NEGATIVE ng/ml (CUTOFF=500); URINE BARBITURATES NEGATIVE ng/ml (CUTOFF=200); URINE BENZODIAZEPINES NEGATIVE ng/ml (CUTOFF=200)
--- NOTE | 2019-02-07 19:23 | HP ---
CHIEF COMPLAINT:AMS PCP: HISTORY OF PRESENT ILLNESS:History is taking from ED notes as pt is poor historian Genaro Diehl is a 68yo man with a PMH of DM , HepC, Fatty liver , cirrhosis , Asthma , chronic anemia , PAFIB not on AC , prolonged QTC , cholelithiaisis and duodenal ulcer who was brought to the ED by his family due to poor responsiveness. His , son and daughter are at bedside. They report that he is A&Ox3 at baseline, but starting around 2am today he has not been speaking. His states that overnight he was "just standing and drooling on himself." Family states that he has had similar episodes of AMS in the past, and they always tried to give him sugar on the assumption that his sugar must be low. In the past, he has improved after about 30 minutes. His family notes that he has had episodes of "forgetfulness" recently as well as multiple falls, including a fall down the stairs last week. He has not been evaluated after any of the falls. Family is unaware of any any fevers, cough, vomiting, diarrhea, or sick contacts. ER course was notable for: (1)CT head negative (2)cervical spine CT pending (3)CBC , CMP , [place] Recent Travel: PAST MEDICAL HISTORY: DM , HepC, Fatty liver , cirrhosis , Asthma , chronic anemia , PAFIB not on AC , prolonged QTC , cholelithiaisis and duodenal ulcer PAST SURGICAL HISTORY: Social History: Smoking: Alcohol: Drugs: Family History: Allergies shellfish derived Allergy (Verified 02/07/19 13:44) HOME MEDICATIONS: Home Medications Medication Instructions Recorded Donepezil HCl 5 mg PO DAILY 11/26/18 Gabapentin 300 mg PO DAILY 11/26/18 Glipizide [Glipizide ER] 10 mg PO BID 11/26/18 Sitagliptin Phosphate [Januvia] 50 mg PO BID 11/26/18 Aspirin Coated [Ecotrin -] 81 mg PO DAILY #30 tablet.ec 11/30/18 Furosemide [Lasix] 20 mg PO DAILY #30 tablet 11/30/18 Miscellaneous Medical Supply 1 [place] [facility] [place] [Outpatient Order] Nadolol [Corgard -] 40 mg PO DAILY #30 tablet 11/30/18 Pantoprazole Sodium [Protonix -] 40 mg PO DAILY #30 tablet.ec 11/30/18 Spironolactone [Aldactone] 50 mg PO DAILY #30 tablet 11/30/18 REVIEW OF SYSTEMS no table to obtain CONSTITUTIONAL: Absent: fever, chills, diaphoresis, generalized weakness, malaise, loss of appetite, weight change HEENT: Absent: rhinorrhea, nasal congestion, throat pain, throat swelling, difficulty swallowing, mouth swelling, ear pain, eye pain, visual changes CARDIOVASCULAR: Absent: chest pain, syncope, palpitations, irregular heart rate, lightheadedness , peripheral edema RESPIRATORY: Absent: cough, shortness of breath, dyspnea with exertion, orthopnea, wheezing, stridor, hemoptysis GASTROINTESTINAL: Absent: abdominal pain, abdominal distension, nausea, vomiting, diarrhea, constipation, melena, hematochezia GENITOURINARY: Absent: dysuria, frequency, urgency, hesitancy, hematuria, flank pain, genital pain MUSCULOSKELETAL: Absent: myalgia, arthralgia, joint swelling, back pain, neck pain SKIN: Absent: rash, itching, pallor HEMATOLOGIC/IMMUNOLOGIC: Absent: easy bleeding, easy bruising, lymphadenopathy, frequent infections ENDOCRINE: Absent: unexplained weight gain, unexplained weight loss, heat intolerance, cold intolerance NEUROLOGIC: Absent: headache, focal weakness or paresthesias, dizziness, unsteady gait, seizure, mental status changes, bladder or bowel incontinence PSYCHIATRIC: Absent: anxiety, depression, suicidal or homicidal ideation, hallucinations. PHYSICAL EXAMINATION Vital Signs - 24 hr 02/07/19 02/07/19 13:38 14:27 Temperature 96.9 F L Pulse Rate 67 Respiratory 18 Rate Blood Pressure 118/56 L O2 Sat by Pulse 97 Oximetry (%) GENERAL: Awake, alert, answer yes please for every thing , confused AAOx0 HEAD: NC/AT EYES: Pupils equal, round and reactive to light, sclera anicteric, conjunctiva clear. EARS, NOSE, THROAT: Moist mucous membranes. NECK: supple LUNGS: Breath sounds equal, clear to auscultation bilaterally. HEART: Regular rate and rhythm, normal S1 and S2 without murmur, rub or gallop. ABDOMEN: obese , Soft, diffuse tenderness , distended, normoactive bowel sounds , UPPER EXTREMITIES: 2+ pulses, warm, well-perfused. No cyanosis. LOWER EXTREMITIES: 2+ pulses, warm, well-perfused. No calf tenderness. +2 peripheral edema. NEUROLOGICAL: not able to assess , confused , PSYCHIATRIC: confused SKIN: Warm, dry, Laboratory Results - last 24 hr 02/07/19 02/07/19 02/07/19 14:07 14:30 14:30 WBC RBC Hgb Hct MCV MCH MCHC RDW Plt Count MPV Absolute Neuts (auto) Neutrophils % Lymphocytes % Monocytes % Eosinophils % Basophils % Nucleated RBC % PT with INR INR PTT (Actin FS) VBG pH 7.39 POC VBG pCO2 44.9 POC VBG pO2 36.8 VBG HCO3 26.7 VBG O2 Sat (Katie) 62.6 L VBG Base Excess 2.0 Sodium 142 Potassium 4.2 Chloride 107 Carbon Dioxide 28 Anion Gap 7 L BUN 36 H Creatinine 1.0 Creat Clearance w eGFR 73.87 POC Glucometer 237 Random Glucose 228 H Lactic Acid Calcium 8.6 Magnesium 2.1 Total Bilirubin 3.4 H AST 46 H ALT 24 Alkaline Phosphatase 101 Ammonia Creatine Kinase 204 Creatine Kinase Index 1.0 CK-MB (CK-2) 2.1 Troponin I < 0.02 B-Natriuretic Peptide 469.4 H Total Protein 6.8 Albumin 2.5 L Lipase 51 L TSH 2.07 D Urine Color Urine Appearance Urine pH Ur Specific [place] Urine Protein Urine Glucose (UA) Urine Ketones Urine Blood Urine Nitrite Urine Bilirubin Urine Urobilinogen Ur Leukocyte Esterase Urine WBC (Auto) Urine RBC (Auto) Urine Casts (Auto) U Epithel Cells (Auto) Urine Bacteria (Auto) Salicylates < 2.8 L Opiates Screen Methadone Screen Acetaminophen < 10 L Barbiturate Screen Phencyclidine Screen Ur Amphetamines Screen MDMA (Ecstasy) Screen Benzodiazepines Screen Cocaine Screen U Marijuana (THC) Screen Alcohol, Quantitative < 3.0 02/07/19 02/07/19 02/07/19 14:30 14:30 14:30 WBC 5.4 RBC 3.51 L Hgb 10.3 L Hct 30.8 L MCV 87.6 MCH 29.4 MCHC 33.6 RDW 15.4 Plt Count 71 L D MPV 10.2 D Absolute Neuts (auto) 3.8 Neutrophils % 70.5 Lymphocytes % 20.8 Monocytes % 7.1 Eosinophils % 0.9 Basophils % 0.7 Nucleated RBC % 0 PT with INR 14.30 H INR 1.21 H PTT (Actin FS) 35.3 VBG pH POC VBG pCO2 POC VBG pO2 VBG HCO3 VBG O2 Sat (Katie) VBG Base Excess Sodium Potassium Chloride Carbon Dioxide Anion Gap BUN Creatinine Creat Clearance w eGFR POC Glucometer Random Glucose Lactic Acid 1.9 Calcium Magnesium Total Bilirubin AST ALT Alkaline Phosphatase Ammonia Creatine Kinase Creatine Kinase Index CK-MB (CK-2) Troponin I B-Natriuretic Peptide Total Protein Albumin Lipase TSH Urine Color Urine Appearance Urine pH Ur Specific [place] Urine Protein Urine Glucose (UA) Urine Ketones Urine Blood Urine Nitrite Urine Bilirubin Urine Urobilinogen Ur Leukocyte Esterase Urine WBC (Auto) Urine RBC (Auto) Urine Casts (Auto) U Epithel Cells (Auto) Urine Bacteria (Auto) Salicylates Opiates Screen Methadone Screen Acetaminophen Barbiturate Screen Phencyclidine Screen Ur Amphetamines Screen MDMA (Ecstasy) Screen Benzodiazepines Screen Cocaine Screen U Marijuana (THC) Screen Alcohol, Quantitative 02/07/19 02/07/19 02/07/19 14:30 18:00 18:00 WBC RBC Hgb Hct MCV MCH MCHC RDW Plt Count MPV Absolute Neuts (auto) Neutrophils % Lymphocytes % Monocytes % Eosinophils % Basophils % Nucleated RBC % PT with INR INR PTT (Actin FS) VBG pH POC VBG pCO2 POC VBG pO2 VBG HCO3 VBG O2 Sat (Katie) VBG Base Excess Sodium Potassium Chloride Carbon Dioxide Anion Gap BUN Creatinine Creat Clearance w eGFR POC Glucometer Random Glucose Lactic Acid Calcium Magnesium Total Bilirubin AST ALT Alkaline Phosphatase Ammonia 71.00 H Creatine Kinase Creatine Kinase Index CK-MB (CK-2) Troponin I B-Natriuretic Peptide Total Protein Albumin Lipase TSH Urine Color Dk yellow Urine Appearance Clear Urine pH 5.5 Ur Specific [place] 1.028 Urine Protein 3+ H Urine Glucose (UA) Trace Urine Ketones Trace H Urine Blood 3+ H Urine Nitrite Negative Urine Bilirubin 1+ H Urine Urobilinogen 2.0 Ur Leukocyte Esterase Trace Urine WBC (Auto) 5 Urine RBC (Auto) 30 Urine Casts (Auto) 17 U Epithel Cells (Auto) 1.6 Urine Bacteria (Auto) 1.9 Salicylates Opiates Screen Negative Methadone Screen Negative Acetaminophen Barbiturate Screen Negative Phencyclidine Screen Negative Ur Amphetamines Screen Negative MDMA (Ecstasy) Screen Negative Benzodiazepines Screen Negative Cocaine Screen Negative U Marijuana (THC) Screen Negative Alcohol, Quantitative CBC, BMP 02/07/19 14:30 02/07/19 14:30 CXR no acute pathology CT head no intracrnial bleed , chromic microcephaly DVT left leg negative EKG : NSR witl LBBB, no St , t wave changes , QTC 529 ASSESSMENT/PLAN: Patient is a 67 year old male with significant past medical history of DM; Hepatitis C(unsure if he was treated); Asthma; HTN; Anemia; cirrhosis, portal hypertension presented to the ED with one day h/o of AMS. # AMS likely due to acute on chronic hepatic encephalopathy vs dehydration vs unknown etiology does not seem infection etiology so far * wade cx * Ammonia 71 trend last visit was 139 with no encephalopathy * CT head negative for acute pathology * CXR negative * UA +3 Blood and +3 protien , will do CT abdomen pelvic to R.O kidney stone vs another etiologies * urine tox negative * B12, TSH, folic acid , electrolytes as reversible causes * no hypoglycemia * TSH WNL * NS @ 75 cc/hr * neurochech Q 2 hr * NPO except meds * consider lactolose if no improvement after hydration or abx if there is signs of sbp # Fall * family reports multiple falls * skeletal survey and head -cervical spine CT * fall precautions # DM * A1c 8.9 last visit * Holdoral agents * BGM ACHS * ISS # normocytic normochromic Anemia with thrombocytopenia likely due to cirrhosis * no active bleeding will monitor cbc daily * hold ASA and chemical proph for DVT * iron studies , b12 , folic acid # Mild LAKEISHA * repeat lab after hydration # Fatty Liver , cirrhosis , hep c # ascities # Portal HTN # portal gastropathy * chronic * repeat CT scan A/P with mild ascities * monitor AST, ALT and ammonia level * resume home meds Nadolol, hold spirnolactone and lasix in term of dehydration * hold ASA due to thromocytopenia * IV fluids NS @ 75 cc/hr * consider ammonia if no improvement after hydration vs abx empirically in case of SBP # prolonged QTC 529 avoid meds cause prolongation and repeat EKG # PAFIB : not on ac due to risk of GI bleed , was placed on ASA will hold for now # H/O upper GI bleed last visit , stable no new episode was reported # FEN * NS @ 75 CC/hr * Monitor lytes * Npo # proph * SCDS only no chemical proph due to cirrhosis and low PLT * PPI home dose 40 daily # Dispo * M/S # Code * full code Visit type - Emergency Visit Emergency Visit: Yes ED Registration Date: 02/07/19 Care time: The patient presented to the Emergency Department on the above date and was hospitalized for further evaluation of their emergent condition. - New Patient This patient is new to me today: Yes Date on this admission: 02/08/19 - Critical Care Critical Care patient: No
--- NOTE | 2019-02-07 20:51 | PN ---
Teaching Attending Note Name of Resident: Davidson Guzmán ATTENDING PHYSICIAN STATEMENT I saw and evaluated the patient. I reviewed the resident's note and discussed the case with the resident. I agree with the resident's findings and plan as documented. SUBJECTIVE: This is a 68 year old man with a history of HTN, PAF, type 2 DM with neuropathy, cirrhosis with portal gastropathy, hepatitis C, asthma, anemia who comes to the ED because his family noted a change in his mental status. Around 2 am, his noted him to be standing and drooling. He also was not speaking. Family also reports that he has been forgetful and has fallen several times recently. The patient is awake, alert, and confused. He becomes agitated when spoken to or with attempted examination. OBJECTIVE: Vital Signs Period Temp Pulse Resp BP Sys/Shen Pulse Ox Last 24 Hr 96.9 F 64-67 17-18 118-120/56-72 97-97 GENERAL: Awake, alert, confused, agitated HEART: S1S2, RRR LUNGS: Clear with poor effort ABDOMEN: Obese, soft, non-distended, agitation increases with palpation EXTREMITIES: 2+ edema Laboratory Tests 02/07/19 02/07/19 02/07/19 14:07 14:30 14:30 WBC RBC Hgb Hct MCV MCH MCHC RDW Plt Count MPV Absolute Neuts (auto) Neutrophils % Lymphocytes % Monocytes % Eosinophils % Basophils % Nucleated RBC % PT with INR INR PTT (Actin FS) VBG pH 7.39 POC VBG pCO2 44.9 POC VBG pO2 36.8 VBG HCO3 26.7 VBG O2 Sat (Katie) 62.6 L VBG Base Excess 2.0 Sodium 142 Potassium 4.2 Chloride 107 Carbon Dioxide 28 Anion Gap 7 L BUN 36 H Creatinine 1.0 Creat Clearance w eGFR 73.87 POC Glucometer 237 Random Glucose 228 H Lactic Acid Calcium 8.6 Magnesium 2.1 Total Bilirubin 3.4 H AST 46 H ALT 24 Alkaline Phosphatase 101 Ammonia Creatine Kinase 204 Creatine Kinase Index 1.0 CK-MB (CK-2) 2.1 Troponin I < 0.02 B-Natriuretic Peptide 469.4 H Total Protein 6.8 Albumin 2.5 L Lipase 51 L TSH 2.07 D Urine Color Urine Appearance Urine pH Ur Specific [place] Urine Protein Urine Glucose (UA) Urine Ketones Urine Blood Urine Nitrite Urine Bilirubin Urine Urobilinogen Ur Leukocyte Esterase Urine WBC (Auto) Urine RBC (Auto) Urine Casts (Auto) U Epithel Cells (Auto) Urine Bacteria (Auto) Salicylates < 2.8 L Opiates Screen Methadone Screen Acetaminophen < 10 L Barbiturate Screen Phencyclidine Screen Ur Amphetamines Screen MDMA (Ecstasy) Screen Benzodiazepines Screen Cocaine Screen U Marijuana (THC) Screen Alcohol, Quantitative < 3.0 02/07/19 02/07/19 02/07/19 14:30 14:30 14:30 WBC 5.4 RBC 3.51 L Hgb 10.3 L Hct 30.8 L MCV 87.6 MCH 29.4 MCHC 33.6 RDW 15.4 Plt Count 71 L D MPV 10.2 D Absolute Neuts (auto) 3.8 Neutrophils % 70.5 Lymphocytes % 20.8 Monocytes % 7.1 Eosinophils % 0.9 Basophils % 0.7 Nucleated RBC % 0 PT with INR 14.30 H INR 1.21 H PTT (Actin FS) 35.3 VBG pH POC VBG pCO2 POC VBG pO2 VBG HCO3 VBG O2 Sat (Katie) VBG Base Excess Sodium Potassium Chloride Carbon Dioxide Anion Gap BUN Creatinine Creat Clearance w eGFR POC Glucometer Random Glucose Lactic Acid 1.9 Calcium Magnesium Total Bilirubin AST ALT Alkaline Phosphatase Ammonia Creatine Kinase Creatine Kinase Index CK-MB (CK-2) Troponin I B-Natriuretic Peptide Total Protein Albumin Lipase TSH Urine Color Urine Appearance Urine pH Ur Specific [place] Urine Protein Urine Glucose (UA) Urine Ketones Urine Blood Urine Nitrite Urine Bilirubin Urine Urobilinogen Ur Leukocyte Esterase Urine WBC (Auto) Urine RBC (Auto) Urine Casts (Auto) U Epithel Cells (Auto) Urine Bacteria (Auto) Salicylates Opiates Screen Methadone Screen Acetaminophen Barbiturate Screen Phencyclidine Screen Ur Amphetamines Screen MDMA (Ecstasy) Screen Benzodiazepines Screen Cocaine Screen U Marijuana (THC) Screen Alcohol, Quantitative 02/07/19 02/07/19 02/07/19 14:30 18:00 18:00 WBC RBC Hgb Hct MCV MCH MCHC RDW Plt Count MPV Absolute Neuts (auto) Neutrophils % Lymphocytes % Monocytes % Eosinophils % Basophils % Nucleated RBC % PT with INR INR PTT (Actin FS) VBG pH POC VBG pCO2 POC VBG pO2 VBG HCO3 VBG O2 Sat (Katie) VBG Base Excess Sodium Potassium Chloride Carbon Dioxide Anion Gap BUN Creatinine Creat Clearance w eGFR POC Glucometer Random Glucose Lactic Acid Calcium Magnesium Total Bilirubin AST ALT Alkaline Phosphatase Ammonia 71.00 H Creatine Kinase Creatine Kinase Index CK-MB (CK-2) Troponin I B-Natriuretic Peptide Total Protein Albumin Lipase TSH Urine Color Dk yellow Urine Appearance Clear Urine pH 5.5 Ur Specific [place] 1.028 Urine Protein 3+ H Urine Glucose (UA) Trace Urine Ketones Trace H Urine Blood 3+ H Urine Nitrite Negative Urine Bilirubin 1+ H Urine Urobilinogen 2.0 Ur Leukocyte Esterase Trace Urine WBC (Auto) 5 Urine RBC (Auto) 30 Urine Casts (Auto) 17 U Epithel Cells (Auto) 1.6 Urine Bacteria (Auto) 1.9 Salicylates Opiates Screen Negative Methadone Screen Negative Acetaminophen Barbiturate Screen Negative Phencyclidine Screen Negative Ur Amphetamines Screen Negative MDMA (Ecstasy) Screen Negative Benzodiazepines Screen Negative Cocaine Screen Negative U Marijuana (THC) Screen Negative Alcohol, Quantitative Home Medications Medication Instructions Recorded Donepezil HCl 5 mg PO DAILY 11/26/18 Gabapentin 300 mg PO DAILY 11/26/18 Glipizide [Glipizide ER] 10 mg PO BID 11/26/18 Sitagliptin Phosphate [Januvia] 50 mg PO BID 11/26/18 Aspirin Coated [Ecotrin -] 81 mg PO DAILY #30 tablet.ec 11/30/18 Furosemide [Lasix] 20 mg PO DAILY #30 tablet 11/30/18 Miscellaneous Medical Supply 1 each ASDIR #1 [email or web address] 11/30/18 [Outpatient Order] Nadolol [Corgard -] 40 mg PO DAILY #30 tablet 11/30/18 Pantoprazole Sodium [Protonix -] 40 mg PO DAILY #30 tablet.ec 11/30/18 Spironolactone [Aldactone] 50 mg PO DAILY #30 tablet 11/30/18 ASSESSMENT AND PLAN: This is a 68 year old man with a history of HTN, PAF, type 2 DM with neuropathy , cirrhosis with portal gastropathy, hepatitis C, asthma, anemia who comes to the ED because his family noted a change in his mental status. 1. Acute metabolic encephalopathy - Possible hepatic encephalopathy - ammonia is 71 and has been >100 in past without encephalopathy - Doubt infectious etiology as patient is afebrile and has normal WBC - Might have component of dehydration as BUN/creatinine are 36/1.0 - CT abd/pelvis to evaluate for ascites - IV fluid and hold diuretics - Consider starting Lactulose if no improvement with hydration - Consider paracentesis if evidence of ascites 2. Hematuria, microscopic - CT abd/pelvis to evaluate for stone given patient's apparent abdominal discomfort 3. HTN - Continue Corgard - Hold Lasix, Aldactone secondary to dehydration 4. Paroxysmal atrial fib - Not on anticoagulation secondary to risk for GI bleeding 5. Type 2 DM with peripheral neuropathy - Hold glipizide, Januvia - Fingersticks with Novolog sliding scale 6. Cirrhosis with portal gastropathy and thrombocytopenia - Hold aspirin secondary to thrombocytopenia, duodenal ulcer, risk for GI bleeding - Continue Corgard - Hold Aldactone, Lasix secondary to dehydration - Monitor platelets 7. Anemia - Likely secondary to chronic illness - Check iron studies, B12, folate - Monitor hemoglobin and for signs of bleeding 8. Hepatitis C 9. Asthma - Stable
[2019-02-07] MEDS: SODIUM CHLORIDE 1,000 ML IV SCH (21:32)
[2019-02-07] MEDS: INSULIN SLIDING SCALE (NOVOLOG) 1 VIAL SQ SCH (23:41)
[2019-02-08] MEDS: SODIUM CHLORIDE 1,000 ML IV SCH (04:40)
[2019-02-08] MEDS: INSULIN SLIDING SCALE (NOVOLOG) 1 VIAL SQ SCH ×3 (06:06→17:41)
[2019-02-08 07:05] LABS: BASO % 0.7 % (0-2.0); EOS % 1.4 % (0-4.5); HEMATOCRIT 27.9 % (35.4-49); HEMOGLOBIN 9.6 GM/dL (11.7-16.9); LYMPH % 21.6 % (8-40); MCH 29.7 pg (25.7-33.7); MCHC 34.4 g/dl (32.0-35.9); MEAN CELL VOLUME 86.3 fl (80-96); MONO % 7.3 % (3.8-10.2); PLATELET COUNT 69 K/MM3 (134-434); RBC 3.23 M/mm3 (4.00-5.60); RDW 15.1 % (11.9-15.9); WHITE BLOOD COUNT 5.3 K/mm3 (4.0-10.0)
[2019-02-08 07:23] LABS: ACTIVATED PTT 33.5 SECONDS (25.2-36.5)
[2019-02-08 07:28] LABS: INR 1.24 (0.83-1.09); PROTHROMBIN TIME (PATIENT) 14.7 SEC (9.7-13.0)
[2019-02-08 07:30] LABS: ALBUMIN 2.3 g/dl (3.4-5.0); ALK PHOS 92 U/L (45-117); ANION GAP 7 MMOL/L (8-16); BILIRUBIN,TOTAL 3.4 mg/dL (0.2-1); BLOOD UREA NITROGEN 33 mg/dL (7-18); CALCIUM 8.2 mg/dL (8.5-10.1); CHLORIDE 110 mmol/L (98-107); CO2 26 mmol/L (21-32); CREATININE 0.8 mg/dL (0.55-1.3); GLUCOSE,RANDOM 168 mg/dL (74-106); MAGNESIUM 2.1 mg/dL (1.8-2.4); PHOSPHOROUS 3.8 mg/dL (2.5-4.9); POTASSIUM 3.7 mmol/L (3.5-5.1); SGOT/AST 40 U/L (15-37); SGPT/ALT 20 U/L (13-61); SODIUM 142 mmol/L (136-145); TOT PROT 6.1 g/dl (6.4-8.2)
[2019-02-08] MEDS ORDERED: PT OWN MED DRAWER 7, Y5N ONE ×2 (09:53→11:30)
--- NOTE | 2019-02-08 09:57 | CON.NEURO ---
Consult - History of Present Illness History of Present Illness: 68yo man with a PMH of DM , HepC, Fatty liver , cirrhosis , Asthma , chronic anemia , PAFIB not on AC , prolonged QTC , cholelithiaisis and duodenal ulcer who was brought to the ED by his family due to poor responsiveness. His , son and daughter are at bedside. They report that he is A&Ox3 at baseline, but starting around 2am today he has not been speaking. Family states that he has had similar episodes of AMS in the past, and they always tried to give him sugar on the assumption that his sugar must be low. In the past, he has improved after about 30 minutes. This moring he is fluent and coherent and denies any complaints. NO HX of SZ. He does recall he has some bleeding issue in past (?) but he is not clear why he doesn't take AC for his AFIB. CT scan of the brain without intravenous contrast. There is mild volume loss and ventricular dilatation. The basal cisterns appear unremarkable. No mass lesion, gross acute infarct or intracranial hemorrhage are identified. Visualized paranasal sinuses and mastoid air cells are well-aerated. Minimal deviation of the nasal septum to the right. The calvarium is intact. Impression : Mild volume loss without evidence of acute intracranial pathology. The calvarium is intact. 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 History of Recent Travel: No Home Medications - Allergies Allergies/Adverse Reactions: Allergies Allergy/AdvReac Type Severity Reaction Status Date / Time shellfish derived Allergy Verified 02/07/19 13:44 - Home Medications Home Medications: Ambulatory Orders Donepezil HCl 5 mg PO DAILY 11/26/18 Gabapentin 300 mg PO DAILY 11/26/18 Glipizide [Glipizide ER] 10 mg PO BID 11/26/18 Sitagliptin Phosphate [Januvia] 50 mg PO BID 11/26/18 Aspirin Coated [Ecotrin -] 81 mg PO DAILY #30 tablet.ec 11/30/18 Furosemide [Lasix] 20 mg PO DAILY #30 tablet 11/30/18 Miscellaneous Medical Supply [Outpatient Order] 1 each ASDIR #1 [facility] [place] Nadolol [Corgard -] 40 mg PO DAILY #30 tablet 11/30/18 Pantoprazole Sodium [Protonix -] 40 mg PO DAILY #30 tablet.ec 11/30/18 Spironolactone [Aldactone] 50 mg PO DAILY #30 tablet 11/30/18 Family Disease History - Family Disease History Family Disease History: Other: Father (: 50's: Diabetic complications), Mother (: unclear when as she was not in his life), Brother (3, 1 he knew and is healthy), Daughter (3, healthy) Physical Exam-Neuro Vital Signs: Vital Signs Temperature 99.3 F 02/08/19 06:00 Pulse Rate 79 02/08/19 06:00 Respiratory Rate 20 02/08/19 06:00 Blood Pressure 130/55 L 02/08/19 06:00 O2 Sat by Pulse Oximetry (%) 96 02/08/19 01:07 Constitutional: Yes: Well Nourished, No Distress Labs: CBC, BMP 02/08/19 05:10 02/08/19 05:10 INR, PTT INR 1.24 (0.83-1.09) H 02/08/19 05:10 - Neuro Exam Level Of Consciousness: Yes: Alert (awake, oriented to place, year, montgh, + naming, + repetition and follows 3 steps, no drift, no focal weakness, reflex trace) Problem List - Problems (1) Aphasia Code(s): R47.01 - APHASIA (2) Altered mental status Code(s): R41.82 - ALTERED MENTAL STATUS, UNSPECIFIED (3) Paroxysmal atrial fibrillation with rapid ventricular response Code(s): I48.0 - PAROXYSMAL ATRIAL FIBRILLATION Assessment/Plan 68yo man with a PMH of DM , HepC, Fatty liver , cirrhosis , Asthma , chronic anemia , PAFIB not on AC , prolonged QTC , cholelithiaisis and duodenal ulcer who was brought to the ED by his family due to poor responsiveness. His , son and daughter are at bedside. They report that he is A&Ox3 at baseline, but starting around 2am today he has not been speaking. Family states that he has had similar episodes of AMS in the past, and they always tried to give him sugar on the assumption that his sugar must be low. In the past, he has improved after about 30 minutes. This moring he is fluent and coherent and denies any complaints. NO HX of SZ. He does recall he has some bleeding issue in past (?) but he is not clear why he doesn't take AC for his AFIB. CT scan of the brain without intravenous contrast. There is mild volume loss and ventricular dilatation. The basal cisterns appear unremarkable. No mass lesion, gross acute infarct or intracranial hemorrhage are identified. Visualized paranasal sinuses and mastoid air cells are well-aerated. Minimal deviation of the nasal septum to the right. The calvarium is intact. Impression : Mild volume loss without evidence of acute intracranial pathology. The calvarium is intact. AP : Possible transient aphasia, with HX of PAF --currently appears to back to baseline. nonfocal exam Possible Left sided cortical ischemic event vs seizure vs metabolic ; check MRI BRAIN and EEG check Dopplers will reassess need for AC thereafter will FU thanks, DR DIAZ
[2019-02-08] MEDS: GABAPENTIN 300 MG CAPSULE (FP) PO SCH (09:59)
[2019-02-08] MEDS: PANTOPRAZOLE 40 MG TABLET (FP) PO SCH (09:59)
[2019-02-08] MEDS ORDERED: FUROSEMIDE 20 MG TABLET (FP) PO SCH (10:00)
[2019-02-08] MEDS ORDERED: ENOXAPARIN NA (PORCINE) 40 MG/0.4 ML DISP.SYRIN SQ SCH (10:00)
[2019-02-08] MEDS ORDERED: SPIRONOLACTONE 25 MG TABLET (FP) PO SCH (10:00)
--- NOTE | 2019-02-08 11:34 | PN ---
Physical Exam: SUBJECTIVE: Patient seen and examined at bedside this morning. No acute overnight events. He is alert and oriented to person, place and time, however is slow to respond, and has difficulty finding words in responding to questions. He admits subjective fevers, chills, shortness of breath, chest pain , palpitations, abdominal pain, nausea, vomiting. OBJECTIVE: Vital Signs Period Temp Pulse Resp BP Sys/Shen Pulse Ox Last 24 Hr 96.9 F-99.3 F 63-79 17-20 116-155/55-77 96-97 GENERAL: The patient is awake, alert, and oriented, in no acute distress. HEAD: Normocephalic, atraumatic. EYES: PERRL, extraocular movements intact, sclera anicteric, conjunctiva clear. ENT: Oropharynx clear without exudates, moist mucous membranes. NECK: Trachea midline, supple without lymphadenopathy. LUNGS: Good inspiratory effort and air entry bilaterally. Breath sounds equal, clear to auscultation bilaterally, no wheezes, no crackles. No accessory muscle use. HEART: Regular rate and rhythm, S1, S2 auscultated without murmur, rubs, gallops. ABDOMEN: Soft, nondistended, nontender to light and deep palpation X4 quadrants. No guarding, no rebound tenderness. Normoactive bowel sounds x4 quadrants. EXTREMITIES: 2+ radial, dorsalis pedis pulses bilaterally. Warm, well-perfused. 1+ bilateral lower extremity edema. NEUROLOGICAL: Cranial nerves II through XII grossly intact. PSYCH: Normal mood, normal affect upon my encounter. Intact finger to nose, and heel to johnson motions. Negative pronator drift. Sensation grossly intact bilateral upper and lower extremities. SKIN: Warm, dry. Laboratory Results - last 24 hr 02/07/19 02/07/19 02/07/19 14:07 14:30 14:30 WBC RBC Hgb Hct MCV MCH MCHC RDW Plt Count MPV Absolute Neuts (auto) Neutrophils % Lymphocytes % Monocytes % Eosinophils % Basophils % Nucleated RBC % PT with INR INR PTT (Actin FS) VBG pH 7.39 POC VBG pCO2 44.9 POC VBG pO2 36.8 VBG HCO3 26.7 VBG O2 Sat (Katie) 62.6 L VBG Base Excess 2.0 Sodium 142 Potassium 4.2 Chloride 107 Carbon Dioxide 28 Anion Gap 7 L BUN 36 H Creatinine 1.0 Creat Clearance w eGFR 73.87 POC Glucometer 237 Random Glucose 228 H Lactic Acid Calcium 8.6 Phosphorus Magnesium 2.1 Ferritin Total Bilirubin 3.4 H AST 46 H ALT 24 Alkaline Phosphatase 101 Ammonia Creatine Kinase 204 Creatine Kinase Index 1.0 CK-MB (CK-2) 2.1 Troponin I < 0.02 B-Natriuretic Peptide 469.4 H Total Protein 6.8 Albumin 2.5 L Lipase 51 L Vitamin B12 Serum Folate TSH 2.07 D Urine Color Urine Appearance Urine pH Ur Specific [place] Urine Protein Urine Glucose (UA) Urine Ketones Urine Blood Urine Nitrite Urine Bilirubin Urine Urobilinogen Ur Leukocyte Esterase Urine WBC (Auto) Urine RBC (Auto) Urine Casts (Auto) U Epithel Cells (Auto) Urine Bacteria (Auto) Salicylates < 2.8 L Opiates Screen Methadone Screen Acetaminophen < 10 L Barbiturate Screen Phencyclidine Screen Ur Amphetamines Screen MDMA (Ecstasy) Screen Benzodiazepines Screen Cocaine Screen U Marijuana (THC) Screen Alcohol, Quantitative < 3.0 02/07/19 02/07/19 02/07/19 14:30 14:30 14:30 WBC 5.4 RBC 3.51 L Hgb 10.3 L Hct 30.8 L MCV 87.6 MCH 29.4 MCHC 33.6 RDW 15.4 Plt Count 71 L D MPV 10.2 D Absolute Neuts (auto) 3.8 Neutrophils % 70.5 Lymphocytes % 20.8 Monocytes % 7.1 Eosinophils % 0.9 Basophils % 0.7 Nucleated RBC % 0 PT with INR 14.30 H INR 1.21 H PTT (Actin FS) 35.3 VBG pH POC VBG pCO2 POC VBG pO2 VBG HCO3 VBG O2 Sat (Katie) VBG Base Excess Sodium Potassium Chloride Carbon Dioxide Anion Gap BUN Creatinine Creat Clearance w eGFR POC Glucometer Random Glucose Lactic Acid 1.9 Calcium Phosphorus Magnesium Ferritin Total Bilirubin AST ALT Alkaline Phosphatase Ammonia Creatine Kinase Creatine Kinase Index CK-MB (CK-2) Troponin I B-Natriuretic Peptide Total Protein Albumin Lipase Vitamin B12 Serum Folate TSH Urine Color Urine Appearance Urine pH Ur Specific [place] Urine Protein Urine Glucose (UA) Urine Ketones Urine Blood Urine Nitrite Urine Bilirubin Urine Urobilinogen Ur Leukocyte Esterase Urine WBC (Auto) Urine RBC (Auto) Urine Casts (Auto) U Epithel Cells (Auto) Urine Bacteria (Auto) Salicylates Opiates Screen Methadone Screen Acetaminophen Barbiturate Screen Phencyclidine Screen Ur Amphetamines Screen MDMA (Ecstasy) Screen Benzodiazepines Screen Cocaine Screen U Marijuana (THC) Screen Alcohol, Quantitative 02/07/19 02/07/19 02/07/19 14:30 18:00 18:00 WBC RBC Hgb Hct MCV MCH MCHC RDW Plt Count MPV Absolute Neuts (auto) Neutrophils % Lymphocytes % Monocytes % Eosinophils % Basophils % Nucleated RBC % PT with INR INR PTT (Actin FS) VBG pH POC VBG pCO2 POC VBG pO2 VBG HCO3 VBG O2 Sat (Katie) VBG Base Excess Sodium Potassium Chloride Carbon Dioxide Anion Gap BUN Creatinine Creat Clearance w eGFR POC Glucometer Random Glucose Lactic Acid Calcium Phosphorus Magnesium Ferritin Total Bilirubin AST ALT Alkaline Phosphatase Ammonia 71.00 H Creatine Kinase Creatine Kinase Index CK-MB (CK-2) Troponin I B-Natriuretic Peptide Total Protein Albumin Lipase Vitamin B12 Serum Folate TSH Urine Color Dk yellow Urine Appearance Clear Urine pH 5.5 Ur Specific [place] 1.028 Urine Protein 3+ H Urine Glucose (UA) Trace Urine Ketones Trace H Urine Blood 3+ H Urine Nitrite Negative Urine Bilirubin 1+ H Urine Urobilinogen 2.0 Ur Leukocyte Esterase Trace Urine WBC (Auto) 5 Urine RBC (Auto) 30 Urine Casts (Auto) 17 U Epithel Cells (Auto) 1.6 Urine Bacteria (Auto) 1.9 Salicylates Opiates Screen Negative Methadone Screen Negative Acetaminophen Barbiturate Screen Negative Phencyclidine Screen Negative Ur Amphetamines Screen Negative MDMA (Ecstasy) Screen Negative Benzodiazepines Screen Negative Cocaine Screen Negative U Marijuana (THC) Screen Negative Alcohol, Quantitative 02/07/19 02/07/19 02/08/19 21:36 23:40 05:10 WBC RBC Hgb Hct MCV MCH MCHC RDW Plt Count MPV Absolute Neuts (auto) Neutrophils % Lymphocytes % Monocytes % Eosinophils % Basophils % Nucleated RBC % PT with INR INR PTT (Actin FS) VBG pH POC VBG pCO2 POC VBG pO2 VBG HCO3 VBG O2 Sat (Katie) VBG Base Excess Sodium 142 Potassium 3.7 Chloride 110 H Carbon Dioxide 26 Anion Gap 7 L BUN 33 H Creatinine 0.8 Creat Clearance w eGFR 95.57 POC Glucometer 172 Random Glucose 168 H Lactic Acid Calcium 8.2 L Phosphorus 3.8 Magnesium 2.1 Ferritin 44.4 Total Bilirubin 3.4 H AST 40 H ALT 20 Alkaline Phosphatase 92 Ammonia Creatine Kinase Creatine Kinase Index CK-MB (CK-2) Troponin I < 0.02 B-Natriuretic Peptide Total Protein 6.1 L Albumin 2.3 L Lipase Vitamin B12 Serum Folate TSH Urine Color Urine Appearance Urine pH Ur Specific [place] Urine Protein Urine Glucose (UA) Urine Ketones Urine Blood Urine Nitrite Urine Bilirubin Urine Urobilinogen Ur Leukocyte Esterase Urine WBC (Auto) Urine RBC (Auto) Urine Casts (Auto) U Epithel Cells (Auto) Urine Bacteria (Auto) Salicylates Opiates Screen Methadone Screen Acetaminophen Barbiturate Screen Phencyclidine Screen Ur Amphetamines Screen MDMA (Ecstasy) Screen Benzodiazepines Screen Cocaine Screen U Marijuana (THC) Screen Alcohol, Quantitative 02/08/19 02/08/19 02/08/19 05:10 05:10 05:10 WBC 5.3 RBC 3.23 L Hgb 9.6 L Hct 27.9 L MCV 86.3 MCH 29.7 MCHC 34.4 RDW 15.1 Plt Count 69 L MPV 10.0 Absolute Neuts (auto) 3.7 Neutrophils % 69.0 Lymphocytes % 21.6 Monocytes % 7.3 Eosinophils % 1.4 Basophils % 0.7 Nucleated RBC % 0 PT with INR 14.70 H INR 1.24 H PTT (Actin FS) 33.5 VBG pH POC VBG pCO2 POC VBG pO2 VBG HCO3 VBG O2 Sat (Katie) VBG Base Excess Sodium Potassium Chloride Carbon Dioxide Anion Gap BUN Creatinine Creat Clearance w eGFR POC Glucometer Random Glucose Lactic Acid Calcium Phosphorus Magnesium Ferritin Total Bilirubin AST ALT Alkaline Phosphatase Ammonia Creatine Kinase Creatine Kinase Index CK-MB (CK-2) Troponin I B-Natriuretic Peptide Total Protein Albumin Lipase Vitamin B12 1137 H Serum Folate 13 TSH Urine Color Urine Appearance Urine pH Ur Specific [place] Urine Protein Urine Glucose (UA) Urine Ketones Urine Blood Urine Nitrite Urine Bilirubin Urine Urobilinogen Ur Leukocyte Esterase Urine WBC (Auto) Urine RBC (Auto) Urine Casts (Auto) U Epithel Cells (Auto) Urine Bacteria (Auto) Salicylates Opiates Screen Methadone Screen Acetaminophen Barbiturate Screen Phencyclidine Screen Ur Amphetamines Screen MDMA (Ecstasy) Screen Benzodiazepines Screen Cocaine Screen U Marijuana (THC) Screen Alcohol, Quantitative 02/08/19 02/08/19 02/08/19 05:24 09:00 11:01 WBC RBC Hgb Hct MCV MCH MCHC RDW Plt Count MPV Absolute Neuts (auto) Neutrophils % Lymphocytes % Monocytes % Eosinophils % Basophils % Nucleated RBC % PT with INR INR PTT (Actin FS) VBG pH POC VBG pCO2 POC VBG pO2 VBG HCO3 VBG O2 Sat (Katie) VBG Base Excess Sodium Potassium Chloride Carbon Dioxide Anion Gap BUN Creatinine Creat Clearance w eGFR POC Glucometer 160 162 Random Glucose Lactic Acid Calcium Phosphorus Magnesium Ferritin Total Bilirubin AST ALT Alkaline Phosphatase Ammonia 82.60 H Creatine Kinase Creatine Kinase Index CK-MB (CK-2) Troponin I B-Natriuretic Peptide Total Protein Albumin Lipase Vitamin B12 Serum Folate TSH Urine Color Urine Appearance Urine pH Ur Specific [place] Urine Protein Urine Glucose (UA) Urine Ketones Urine Blood Urine Nitrite Urine Bilirubin Urine Urobilinogen Ur Leukocyte Esterase Urine WBC (Auto) Urine RBC (Auto) Urine Casts (Auto) U Epithel Cells (Auto) Urine Bacteria (Auto) Salicylates Opiates Screen Methadone Screen Acetaminophen Barbiturate Screen Phencyclidine Screen Ur Amphetamines Screen MDMA (Ecstasy) Screen Benzodiazepines Screen Cocaine Screen U Marijuana (THC) Screen Alcohol, Quantitative Active Medications Generic Name Dose Route Start Last Admin Trade Name Freq PRN Reason Stop Dose Admin Donepezil HCl 5 mg 02/08/19 22:00 Aricept - PO HS REBEL Gabapentin 300 mg 02/08/19 10:00 02/08/19 09:59 Neurontin - PO 300 mg DAILY REBEL Administration Sodium Chloride 1,000 mls @ 75 mls/hr 02/07/19 21:30 02/08/19 04:40 Normal Saline - IV 75 mls/hr ASDIR REBEL Administration Insulin Aspart 1 vial 02/07/19 22:00 02/08/19 06:06 Novolog Vial Sliding Scale - SQ Not Given ACHS REBEL Protocol Nadolol 40 mg 02/08/19 10:00 Corgard - PO DAILY REBEL Pantoprazole Sodium 40 mg 02/08/19 10:00 02/08/19 09:59 Protonix - PO 40 mg DAILY REBEL Administration ASSESSMENT/PLAN: Patient is a 68 year old male with history of paroxysmal Afib (not on anticoagulation), diabetes mellitus (not insulin dependent), asthma , untreated hepatitis C, cholelithiasis, duodenal ulcer presents after his found patient unresponsive and drooling at the mouth. Acute metabolic encephalopathy -Unclear etiology: concern for transient ischemic event. -Neurology consult (Dr. Wilkins) appreciated. -Follow MRI brain, EEG -Follow blood cultures -Follow urine cultures -Donepezil 5mg PO HS -Will obtain further history from patient's Afib -Rate controlled with Nadolol 40mg PO daily -Currently not on anticoagulation due to prior GI bleeding. Diabetes mellitus -Insulin sliding scale ACHS -Fingerstick blood glucose monitoring ACHS -Gabapentin 300mg PO daily Normocytic anemia -Likely anemia of chronic disease -Follow iron studies -Follow Hb/ Hct closely FEN -No IV fluids -Follow CMP -Diabetic diet Prophylaxis -SCDs bilateral lower extremities -Protonix 40mg PO daily Disposition -Continue care in medical surgical floor. Visit type - Emergency Visit Emergency Visit: Yes ED Registration Date: 02/07/19 Care time: The patient presented to the Emergency Department on the above date and was hospitalized for further evaluation of their emergent condition. - New Patient This patient is new to me today: Yes Date on this admission: 02/08/19 - Critical Care Critical Care patient: No - Discharge Referral Referred to [facility] Med [facility] No
[2019-02-08] MEDS: NADOLOL 40 MG TABLET (FP) PO SCH (11:35)
[2019-02-08] MEDS ORDERED: LACTULOSE 20 GM/30 ML UDC (FOR ORAL USE ONLY) PO PRN (11:55)
--- NOTE | 2019-02-08 12:13 | PN ---
Teaching Attending Note Name of Resident: Edil Watson ATTENDING PHYSICIAN STATEMENT I saw and evaluated the patient. I reviewed the resident's note and discussed the case with the resident. I agree with the resident's findings and plan as documented. SUBJECTIVE:has difficulty finding the correct word at times for several weeks now. does not recall what occurred yesterday but knows hes in the hospital because he was not acting normal. claims medication compliance and last saw PMD recently for routine visit and no concerns but did not speak with them regarding his aphasia. denies CP, SOB< fever, chills, N/V/C/D OBJECTIVE: Last Vital Signs Temp Pulse Resp BP Pulse Ox 99.3 F 79 20 130/55 L 96 02/08/19 06:00 02/08/19 06:00 02/08/19 06:00 02/08/19 06:00 02/08/19 01:07 General NAD CV S1 S2 RRR no murmur/rub/gallop Lungs CTA B/L no wheezing/rales/rhonchi Abdomen soft +distended no rebound or guarding Extremities no pedal edema Neuro CN II-XII grossly intact, negative pronator, negative dysmetria and heel to johnson. sensation and strength equal in all 4 extremities ASSESSMENT AND PLAN: 68 yo M with PMH of HTN, PAF, type 2 DM with neuropathy, cirrhosis with portal gastropathy, hepatitis C, asthma, anemia who comes to the ED because his family noted a change in his mental status. 1. Acute metabolic encephalopathy- concern for hepatic encephalopathy vs CVA. appears to be back at baseline. there are no focal deficits at this time. ammonia level is elevated however clinically improved. had elevated ammonia level in the past and was not noted to be encephalopathic at that time. will consult neuro. obtain Brain MRI to evaluate for CVA. 2. Hematuria- 3+ blood but minimal RBC on UA. CK WNL, does not appear to be in rhabdo. will repeat UA. conider checking myoglobin if persists 3. Cirrhosis with portal gastropahty and thrombocytopenia-compensated. minimal ascites on imaging. lasix/aldactone was held due to dehydration. kathy d/c IVF and advance diet. consider re-starting medications tomorrow. cont nadolol. hold asa 4.HTN- controlled. cont medications 5. DM- hold oral agents. cont iss and bgm 6. anemia- due to chronic disease. iron studies pending. ghb stable. normal txn thresholds 7. PAF- not on anticoagulation due to bleeding risk with recent GI bleed. cont rate control 8. HCV- not treated as could not afford medicaitions 9. DVT ppx- SCD
--- NOTE | 2019-02-08 15:18 | EKG ---
Test Reason : Blood Pressure : / mmHG Vent. Rate : 074 BPM Atrial Rate : 074 BPM P-R Int : 166 ms QRS Dur : 142 ms QT Int : 456 ms P-R-T Axes : 055 011 130 degrees QTc Int : 506 ms NORMAL SINUS RHYTHM LEFT BUNDLE BRANCH BLOCK ABNORMAL ECG WHEN COMPARED WITH ECG OF 07-FEB-2019 14:10, NO SIGNIFICANT CHANGE WAS FOUND Confirmed by RACHEL ZAVALA MD ([id number]) on 02/08/2019 3:18:37 PM Referred By: Confirmed By:RACHEL ZAVALA MD
[2019-02-08] MEDS ORDERED: DONEPEZIL HCL 5 MG TABLET (FP) PO SCH (22:00)
[2019-02-09 04:11] LABS: SERUM IRON SATURATION 29 % (15-55); TOTAL IRON BINDING CAPACITY 252 ug/dL (250-450); UIBC 180 ug/dL (111-343)
[2019-02-09] MEDS ORDERED: ALBUTEROL SO4 2.5/IPRATROPIUM 0.5 INH SOL 3 ML VIAL.NEB. NEB ONE (05:56)
[2019-02-09] MEDS: INSULIN SLIDING SCALE (NOVOLOG) 1 VIAL SQ SCH ×4 (07:09→17:21)
[2019-02-09 07:32] LABS: HEMATOCRIT 27.8 % (35.4-49); HEMOGLOBIN 9.6 GM/dL (11.7-16.9); MCH 29.7 pg (25.7-33.7); MCHC 34.4 g/dl (32.0-35.9); MEAN CELL VOLUME 86.4 fl (80-96); MEAN PLT VOLUME 10.3 fl (7.5-11.1); PLATELET COUNT 64 K/MM3 (134-434); RBC 3.22 M/mm3 (4.00-5.60); WHITE BLOOD COUNT 5.3 K/mm3 (4.0-10.0)
--- NOTE | 2019-02-09 07:55 | PN ---
Physical Exam: SUBJECTIVE: Patient seen and examined at bedside this morning. He denies acute complaints. He is awake, alert, and oriented to person, place, and time. He appears to have less difficulty in responding to questions this morning. He denies subjective fevers, chills, shortness of breath, chest pain, palpitations , abdominal pain, nausea, vomiting. OBJECTIVE: Vital Signs Period Temp Pulse Resp BP Sys/Shen Pulse Ox Last 24 Hr 98.2 F-98.9 F 60-72 18-20 132-141/53-64 95-95 GENERAL: The patient is awake, alert, and oriented, in no acute distress. HEAD: Normocephalic, atraumatic. EYES: PERRL, extraocular movements intact, sclera anicteric, conjunctiva clear. ENT: Oropharynx clear without exudates, moist mucous membranes. NECK: Trachea midline, supple without lymphadenopathy. LUNGS: Good inspiratory effort and air entry bilaterally. Breath sounds equal, clear to auscultation bilaterally, no wheezes, no crackles. No accessory muscle use. HEART: Regular rate and rhythm, S1, S2 auscultated without murmur, rubs, gallops. ABDOMEN: Soft, nondistended, nontender to light and deep palpation X4 quadrants. No guarding, no rebound tenderness. Normoactive bowel sounds x4 quadrants. EXTREMITIES: 2+ radial, dorsalis pedis pulses bilaterally. Warm, well-perfused. 1+ bilateral lower extremity edema. NEUROLOGICAL: Cranial nerves II through XII grossly intact. PSYCH: Normal mood, normal affect upon my encounter. Intact finger to nose, and heel to johnson motions. Negative pronator drift. Sensation grossly intact bilateral upper and lower extremities. Strength 5/5 bilateral upper and lower extremities. SKIN: Warm, dry. Ecchymosis overlying left knee. Laboratory Results - last 24 hr 02/08/19 02/08/19 02/08/19 05:10 09:00 11:01 POC Glucometer 162 Iron 72 TIBC 252 Iron Saturation 29 Ammonia 82.60 H 02/08/19 02/08/19 02/09/19 17:31 23:59 07:03 POC Glucometer 216 265 152 Iron TIBC Iron Saturation Ammonia Active Medications Generic Name Dose Route Start Last Admin Trade Name Freq PRN Reason Stop Dose Admin Donepezil HCl 5 mg 02/08/19 22:00 02/08/19 22:53 Aricept - PO 5 mg HS REBEL Administration Gabapentin 300 mg 02/08/19 10:00 02/08/19 09:59 Neurontin - PO 300 mg DAILY REBEL Administration Insulin Aspart 1 vial 02/07/19 22:00 02/09/19 07:09 Novolog Vial Sliding Scale - SQ 2 units ACHS REBEL Administration Protocol Nadolol 40 mg 02/08/19 10:00 02/08/19 11:35 Corgard - PO 40 mg DAILY REBEL Administration Pantoprazole Sodium 40 mg 02/08/19 10:00 02/08/19 09:59 Protonix - PO 40 mg DAILY REBEL Administration ASSESSMENT/PLAN: Patient is a 68 year old male with history of paroxysmal Afib (not on anticoagulation), diabetes mellitus (not insulin dependent), asthma , untreated hepatitis C, cholelithiasis, duodenal ulcer presents after his found patient unresponsive and drooling at the mouth. Acute metabolic encephalopathy -Unclear etiology: concern for transient ischemic event. -Neurology consult (Dr. Wilkins) appreciated. -MRI brain shows chronic ischemic changes. No acute infracts noted. -Follow EEG -Blood cultures negative for growth at 24 hours -Follow urine cultures -Donepezil 5mg PO HS -Begin Lactulose 20mg PO ID for prophylaxis Afib -Rate controlled with Nadolol 40mg PO daily -Currently not on anticoagulation due to prior GI bleeding. Diabetes mellitus -Insulin sliding scale ACHS -Fingerstick blood glucose monitoring ACHS -Gabapentin 300mg PO daily Normocytic anemia -Likely anemia of chronic disease -Follow iron studies -Follow Hb/ Hct closely FEN -No IV fluids -Follow CMP -Diabetic diet Prophylaxis -SCDs bilateral lower extremities -Protonix 40mg PO daily Disposition -Continue care in medical surgical floor.
[2019-02-09 07:59] LABS: ALBUMIN 2.2 g/dl (3.4-5.0); ALK PHOS 91 U/L (45-117); ANION GAP 4 MMOL/L (8-16); BLOOD UREA NITROGEN 29 mg/dL (7-18); CHLORIDE 110 mmol/L (98-107); CO2 27 mmol/L (21-32); CREATININE 0.8 mg/dL (0.55-1.3); GLUCOSE,RANDOM 172 mg/dL (74-106); POTASSIUM 3.4 mmol/L (3.5-5.1); SGOT/AST 42 U/L (15-37); SGPT/ALT 21 U/L (13-61); SODIUM 141 mmol/L (136-145); TOT PROT 5.8 g/dl (6.4-8.2)
[2019-02-09] MEDS ORDERED: POTASSIUM CHLORIDE ORAL LIQUID 20 MEQ/15 ML PO ONE (08:10)
[2019-02-09] MEDS ORDERED: ALBUTEROL SO4 2.5/IPRATROPIUM 0.5 INH SOL 3 ML VIAL.NEB. NEB PRN (08:21)
[2019-02-09] MEDS ORDERED: PT OWN MED DRAWER 7, Y5N ONE (10:01)
[2019-02-09] MEDS: NADOLOL 40 MG TABLET (FP) PO SCH (10:02)
[2019-02-09] MEDS: PANTOPRAZOLE 40 MG TABLET (FP) PO SCH (10:02)
[2019-02-09] MEDS: GABAPENTIN 300 MG CAPSULE (FP) PO SCH (10:02)
[2019-02-09 10:50] LABS: EPI CELLS 2.5 /HPF (0-5); PH,URINE 5.5 (5.0-8.0); URINE APPEARANCE CLEAR; URINE BACTERIA 5.2 /hpf (NEGATIVE); URINE BILIRUBIN 1+ (NEGATIVE); URINE CASTS 14 /hpf (0-8); URINE COLOR DK YELLOW; URINE GLUCOSE (UA) 1+ (NEGATIVE); URINE KETONE NEGATIVE (NEGATIVE); URINE LEUK ESTERASE TRACE (NEGATIVE); URINE NITRITE NEGATIVE (NEGATIVE); URINE PROTEIN 3+ (NEGATIVE); URINE RBC 11 /hpf (0-4); URINE WBC 5 /hpf (0-5)
[2019-02-09 12:34] VITALS: BMI 37.2
[2019-02-09] MEDS ORDERED: LACTULOSE 20 GM/30 ML UDC (FOR ORAL USE ONLY) PO SCH (14:00)
[2019-02-09 15:40] VITALS: BP 134/66; PULSE 60; TEMP 98
--- NOTE | 2019-02-09 16:17 | PN ---
Teaching Attending Note Name of Resident: Edil Watson ATTENDING PHYSICIAN STATEMENT I saw and evaluated the patient. I reviewed the resident's note and discussed the case with the resident. I agree with the resident's findings and plan as documented. SUBJECTIVE: Feels great - no complaints. No headache/visual disturbance. No limb numbness/weakness/tingling. OBJECTIVE: Afebrile, Hemodynamically Stable. Last Vital Signs Temp Pulse Resp BP Pulse Ox 98.0 F 60 22 H 134/66 98 02/09/19 14:38 02/09/19 14:38 02/09/19 14:38 02/09/19 14:38 02/09/19 10:09 HEENT - Atraumatic, Normocephalic. Heart - S1, S2, RRR Lungs - clear to auscultation Abdomen - Soft, non-tender. Bowel Sounds normal. Extremities - Edema +, no calf tenderness. Neuro - AAO x 3. Has trouble following conversation to completion ?attention deficit. Tone/Power normal all 4 extremities. balloon artist intact. Laboratory Results - last 24 hr 02/08/19 02/08/19 02/08/19 05:10 17:31 23:59 WBC RBC Hgb Hct MCV MCH MCHC RDW Plt Count MPV Sodium Potassium Chloride Carbon Dioxide Anion Gap BUN Creatinine Creat Clearance w eGFR POC Glucometer 216 265 Random Glucose Calcium Iron 72 TIBC 252 Iron Saturation 29 Total Bilirubin AST ALT Alkaline Phosphatase Total Protein Albumin Urine Color Urine Appearance Urine pH Ur Specific [place] Urine Protein Urine Glucose (UA) Urine Ketones Urine Blood Urine Nitrite Urine Bilirubin Urine Urobilinogen Ur Leukocyte Esterase Urine WBC (Auto) Urine RBC (Auto) Urine Casts (Auto) U Epithel Cells (Auto) Urine Bacteria (Auto) 02/09/19 02/09/19 02/09/19 05:40 06:45 06:45 WBC 5.3 RBC 3.22 L Hgb 9.6 L Hct 27.8 L MCV 86.4 MCH 29.7 MCHC 34.4 RDW 15.0 Plt Count 64 L MPV 10.3 Sodium 141 Potassium 3.4 L Chloride 110 H Carbon Dioxide 27 Anion Gap 4 L BUN 29 H Creatinine 0.8 Creat Clearance w eGFR 95.57 POC Glucometer Random Glucose 172 H Calcium 8.0 L Iron TIBC Iron Saturation Total Bilirubin 3.0 H AST 42 H ALT 21 Alkaline Phosphatase 91 Total Protein 5.8 L Albumin 2.2 L Urine Color Dk yellow Urine Appearance Clear Urine pH 5.5 Ur Specific [place] 1.028 Urine Protein 3+ H Urine Glucose (UA) 1+ H Urine Ketones Negative Urine Blood 3+ H Urine Nitrite Negative Urine Bilirubin 1+ H Urine Urobilinogen 2.0 Ur Leukocyte Esterase Trace Urine WBC (Auto) 5 Urine RBC (Auto) 11 Urine Casts (Auto) 14 U Epithel Cells (Auto) 2.5 Urine Bacteria (Auto) 5.2 02/09/19 02/09/19 07:03 12:18 WBC RBC Hgb Hct MCV MCH MCHC RDW Plt Count MPV Sodium Potassium Chloride Carbon Dioxide Anion Gap BUN Creatinine Creat Clearance w eGFR POC Glucometer 152 277 Random Glucose Calcium Iron TIBC Iron Saturation Total Bilirubin AST ALT Alkaline Phosphatase Total Protein Albumin Urine Color Urine Appearance Urine pH Ur Specific [place] Urine Protein Urine Glucose (UA) Urine Ketones Urine Blood Urine Nitrite Urine Bilirubin Urine Urobilinogen Ur Leukocyte Esterase Urine WBC (Auto) Urine RBC (Auto) Urine Casts (Auto) U Epithel Cells (Auto) Urine Bacteria (Auto) Current Medications Generic Name Dose Route Start Last Admin Trade Name Freq PRN Reason Stop Dose Admin Albuterol/Ipratropium 1 amp 02/09/19 08:21 Duoneb - NEB Q4H PRN SHORTNESS OF BREATH Donepezil HCl 5 mg 02/08/19 22:00 02/08/19 22:53 Aricept - PO 5 mg HS REBEL Administration Gabapentin 300 mg 02/08/19 10:00 02/09/19 10:02 Neurontin - PO 300 mg DAILY REBEL Administration Insulin Aspart 1 vial 02/07/19 22:00 02/09/19 12:20 Novolog Vial Sliding Scale - SQ 6 units ACHS REBEL Administration Protocol Lactulose 20 gm 02/09/19 14:00 02/09/19 14:35 Cephulac (Oral Use) PO 20 gm TID REBEL Administration Nadolol 40 mg 02/08/19 10:00 02/09/19 10:02 Corgard - PO 40 mg DAILY REBEL Administration Pantoprazole Sodium 40 mg 02/08/19 10:00 02/09/19 10:02 Protonix - PO 40 mg DAILY REBEL Administration ASSESSMENT AND PLAN: 68 year old male with history of Dementia, HTN, Paroxysmal Atrial Fibrillation ( not on AC), DM Type 2 with Neuropathy, Liver Cirrhosis with portal gastropathy (No esophageal varices on EGD 11/21), Hepatitis C, Asthma, Chronic Anemia who was brought to ED with mental status change/episode of Aphasia, now resolved. 1. Acute Metabolic Encephalopathy on background Dementia - appears to have resolved. As per discussion with Dr. Roberts, low probability of TIA, possible Seizure, Will follow as out-patient with EEG. MRI Brain - negative for acute findings, chronic microvascular ischemic changes. No evidence of Acute hepatic encephalopathy despite elevated Ammonia levels. Continue Aricept. 2. Hx Liver Cirrhosis with Portal Gastropathy and Thrombocytopenia sec to Hepatitis C - no evidence of decompensation. Will start Lactulose to maintain soft bowel movements at least 3 x daily. Normally on Lasix and Aldactone - will resume. No varices on EGD 11/21. Unable to follow with Dr. Khan as out- patient as his insurance is not accepted. Advised to follow with PCP for Gastroenterology/Hepatology follow up. 3. Microscopic Hematuria - H/H stable. For out-patient Urology follow up. 4. PUD s/p EGD with DUs - continue PPI. No varices on EGD 11/21. 5. HTN - Continue Nadolol 6. DM 2 - Maintained on sliding scale. Can resume Tresiba/Levemir, Glipizide on discharge. 7. Paroxysmal Atrial Fibrillation - seen by Cardiology on last admission and not started on AC. For out-patient Cardiology follow up. 8. Hypokalemia - will be repleted. DVT Px - SCDs. Heparin/Lovenox held due to Thrombocytopenia. Neurologically and Medically stable for discharge with out-patient Cardiology, Neurology, and GI follow ups.
--- NOTE | 2019-02-09 16:24 | DS ---
Physical Exam: SUBJECTIVE: Patient seen and examined at bedside this morning. No acute overnight events. He is alert and oriented to person, place and time, however is slow to respond, and has difficulty finding words in responding to questions. He admits subjective fevers, chills, shortness of breath, chest pain , palpitations, abdominal pain, nausea, vomiting. OBJECTIVE: Vital Signs Period Temp Pulse Resp BP Sys/Shen Pulse Ox Last 24 Hr 97.6 F-98.8 F 60-70 20-22 132-139/53-69 95-98 PHYSICAL EXAM GENERAL: The patient is awake, alert, and oriented, in no acute distress. HEAD: Normocephalic, atraumatic. EYES: PERRL, extraocular movements intact, sclera anicteric, conjunctiva clear. ENT: Oropharynx clear without exudates, moist mucous membranes. NECK: Trachea midline, supple without lymphadenopathy. LUNGS: Good inspiratory effort and air entry bilaterally. Breath sounds equal, clear to auscultation bilaterally, no wheezes, no crackles. No accessory muscle use. HEART: Regular rate and rhythm, S1, S2 auscultated without murmur, rubs, gallops. ABDOMEN: Soft, nondistended, nontender to light and deep palpation X4 quadrants. No guarding, no rebound tenderness. Normoactive bowel sounds x4 quadrants. EXTREMITIES: 2+ radial, dorsalis pedis pulses bilaterally. Warm, well-perfused. 1+ bilateral lower extremity edema. NEUROLOGICAL: Cranial nerves II through XII grossly intact. PSYCH: Normal mood, normal affect upon my encounter. Intact finger to nose, and heel to johnson motions. Negative pronator drift. Sensation grossly intact bilateral upper and lower extremities. SKIN: Warm, dry. LABS Laboratory Results - last 24 hr 02/08/19 02/08/19 02/08/19 05:10 17:31 23:59 WBC RBC Hgb Hct MCV MCH MCHC RDW Plt Count MPV Sodium Potassium Chloride Carbon Dioxide Anion Gap BUN Creatinine Creat Clearance w eGFR POC Glucometer 216 265 Random Glucose Calcium Iron 72 TIBC 252 Iron Saturation 29 Total Bilirubin AST ALT Alkaline Phosphatase Total Protein Albumin Urine Color Urine Appearance Urine pH Ur Specific [place] Urine Protein Urine Glucose (UA) Urine Ketones Urine Blood Urine Nitrite Urine Bilirubin Urine Urobilinogen Ur Leukocyte Esterase Urine WBC (Auto) Urine RBC (Auto) Urine Casts (Auto) U Epithel Cells (Auto) Urine Bacteria (Auto) 02/09/19 02/09/19 02/09/19 05:40 06:45 06:45 WBC 5.3 RBC 3.22 L Hgb 9.6 L Hct 27.8 L MCV 86.4 MCH 29.7 MCHC 34.4 RDW 15.0 Plt Count 64 L MPV 10.3 Sodium 141 Potassium 3.4 L Chloride 110 H Carbon Dioxide 27 Anion Gap 4 L BUN 29 H Creatinine 0.8 Creat Clearance w eGFR 95.57 POC Glucometer Random Glucose 172 H Calcium 8.0 L Iron TIBC Iron Saturation Total Bilirubin 3.0 H AST 42 H ALT 21 Alkaline Phosphatase 91 Total Protein 5.8 L Albumin 2.2 L Urine Color Dk yellow Urine Appearance Clear Urine pH 5.5 Ur Specific [place] 1.028 Urine Protein 3+ H Urine Glucose (UA) 1+ H Urine Ketones Negative Urine Blood 3+ H Urine Nitrite Negative Urine Bilirubin 1+ H Urine Urobilinogen 2.0 Ur Leukocyte Esterase Trace Urine WBC (Auto) 5 Urine RBC (Auto) 11 Urine Casts (Auto) 14 U Epithel Cells (Auto) 2.5 Urine Bacteria (Auto) 5.2 02/09/19 02/09/19 07:03 12:18 WBC RBC Hgb Hct MCV MCH MCHC RDW Plt Count MPV Sodium Potassium Chloride Carbon Dioxide Anion Gap BUN Creatinine Creat Clearance w eGFR POC Glucometer 152 277 Random Glucose Calcium Iron TIBC Iron Saturation Total Bilirubin AST ALT Alkaline Phosphatase Total Protein Albumin Urine Color Urine Appearance Urine pH Ur Specific [place] Urine Protein Urine Glucose (UA) Urine Ketones Urine Blood Urine Nitrite Urine Bilirubin Urine Urobilinogen Ur Leukocyte Esterase Urine WBC (Auto) Urine RBC (Auto) Urine Casts (Auto) U Epithel Cells (Auto) Urine Bacteria (Auto) HOSPITAL COURSE: Date of Admission:02/07/19 Date of Discharge: 02/09/19 Patient is a 68 year old male with history of paroxysmal Afib (not on anticoagulation), diabetes mellitus (not insulin dependent), asthma , untreated hepatitis C, cholelithiasis, duodenal ulcer presents after his found patient unresponsive and drooling at the mouth. Patient was evaluated by Neurology who recommended brain MRI, and EEG. MRI showed no acute infarct. Patient's mentation improved, and back to baseline. He was reinstated on Aspirin , and discussed cardiology follow up regarding necessity og anticoagulation for paroxysmal Afib. Patient was noted to have elevated Ammonia, and started on Lactulose for hepatic encephalopathy prophylaxis. Counselled patient to ensure he has approx. 3 soft bowel movements per day with Lactulose. Patient cleared for discharge after discussion with Neurology. Patient discharged to continue home medications, begin Aspirin, and Lactulose. Discharged to follow up with primary care physician (requested GI follow up that will accept his insurance), cardiology, and neurology. Discharge instructions discussed with patient, and his (Buster Wright [phone]) over the phone. Minutes to complete discharge: 45 Discharge Summary Reason For Visit: ALTERED MENTAL STATUS Current Active Problems Altered mental status (Acute) Aphasia (Acute) Condition: Stable - Instructions Diet, Activity, Other Instructions: You were admitted for altered mental status, and were evaluated by the neurologist. Your MRI showed no acute brain infract. You had an EEG performed, and will follow up the results with neurologist Dr. Roberts. You are being discharged home. Continue taking your home medications as directed. We are resuming your aspirin. Take Aspirin 81mg daily. You will discuss necessity of any blood thinners with your glove parts inspector (Dr. Sy). You will start taking Lactulose 20 grams, three times a day. Ensure you are having approximately 3 soft bowel movements a day with the medication. Discuss this new medication with your primary care physician. Follow up with your primary care physician within two- three days after discharge. A referral to [facility] [place] [facility] has been provided. Discuss with your primary care physician regarding a referral to echometer engineer/ licensed and certified midwife that is covered by your insurance. Follow up with Neurologist Dr. Roberts within one week of discharge. Follow up with your Phone Technician Dr. Sy to discuss anticoagulation (blood thinners) regarding your Afib (irregular heart rate). Return to the nearest Emergency Department if you experience worsening symptoms , headaches, confusion, fall, loss of consciousness, dizziness, changes in vision, fevers, chills, shortness of breath, chest pain, palpitations, abdominal pain, nausea, vomiting, Referrals: [facility] [place] [Provider Group] Sandie Sy MD [Staff Physician] - 1 Week Cali Roberts DO [Staff Physician] - 1 Week (Follow up brain MRI and EEG for altered mental status.) Disposition: HOME - Home Medications Comprehensive Discharge Medication List: Ambulatory Orders Donepezil HCl 5 mg PO DAILY 11/26/18 Gabapentin 300 mg PO DAILY 11/26/18 Glipizide [Glipizide ER] 10 mg PO BID 11/26/18 Sitagliptin Phosphate [Januvia] 50 mg PO BID 11/26/18 Aspirin Coated [Ecotrin -] 81 mg PO DAILY #30 tablet.ec 11/30/18 Furosemide [Lasix] 20 mg PO DAILY #30 tablet 11/30/18 Miscellaneous Medical Supply [Outpatient Order] 1 each ASDIR #1 misc Nadolol [Corgard -] 40 mg PO DAILY #30 tablet 11/30/18 Pantoprazole Sodium [Protonix -] 40 mg PO DAILY #30 tablet.ec 11/30/18 Spironolactone [Aldactone] 50 mg PO DAILY #30 tablet 11/30/18 Insulin Degludec [Tresiba Flextouch U-100] 50 units SQ DAILY 02/08/19 Insulin Detemir [Levemir Flextouch] 50 units SQ DAILY 02/08/19 This patient is new to me today: No Emergency Visit: Yes ED Registration Date: 02/07/19 Care time: The patient presented to the Emergency Department on the above date and was hospitalized for further evaluation of their emergent condition. Critical Care patient: No - Discharge Referral Referred to [facility] No
== END 2019-02-09 19:07 | disposition home or self-care (01) | DRG 71 ==
LOC: JER 13:36 → JERBED 15:47 → OBSVTOIN 21:26 → J5S 23:14
PROVIDERS: ADMIT Internal Medicine
DX: G93.41 Metabolic encephalopathy (principal); R18.8 Other ascites; N17.9 Acute kidney failure, unspecified; B19.20 Unspecified viral hepatitis C without hepatic coma; K74.60 Unspecified cirrhosis of liver; D64.9 Anemia, unspecified; I48.0 Paroxysmal atrial fibrillation; R31.29 Other microscopic hematuria; E87.6 Hypokalemia; I10 Essential (primary) hypertension; K76.0 Fatty (change of) liver, not elsewhere classified; E11.42 Type 2 diabetes mellitus with diabetic polyneuropathy; E86.0 Dehydration; D69.6 Thrombocytopenia, unspecified; R41.82 Altered mental status, unspecified
CPT/HCPCS: 36415; 70450-TC; 70551-TC; 71045-TC-FY; 72125-TC; 73560-TC-LT-FY; 73590-TC-LT-FY; 73610-TC-LT-FY; 73630-TC-LT; 74176-TC; 80053; 80307; 81003; 82140; 82550; 82553; 82607; 82728; 82746; 82803; 82962; 83540; 83550; 83605; 83690; 83735; 83880; 84100; 84443; 84484; 85025; 85027; 85610; 85730; 87040; 87086; 93005; 93010; 93971-TC; 94640; 95816; 97116-GP; 97161-GP; 99284-25; G0378; J7030

== ENCOUNTER 2019-03-10 12:55 | Inpatient (IN) | payer OTHER ==
--- NOTE | 2019-03-10 13:54 | PDOC ---
History of Present Illness - General Chief Complaint: Altered Mental Status Stated Complaint: ABNORMAL BEHAVIOR Time Seen by Provider: 03/10/19 13:53 History Source: Patient Exam Limitations: No Limitations - History of Present Illness Initial Comments: 03/10/19 13:55 The patient is a 68-year-old male, with a past medical history of asthma, DM, fatty liver, HCV and cirrhosis, who presents to the ED with 1 day of abnormal behavior that included forgetfulness, anxiety, repeating words as witnessed by the patient's daughter. The patient had weakness and swelling in the legs noted last night by his . The y denies any recent fevers, facial droop, diarrhea, hematuria, constipation, dysuria. No recent travel and has had chronic abdominal pain. Family denies any falls noted. reports compliance with all medications Patient was admiutted here 1 month ago for AMS and was found to have elevated elevated ammonia, d/c on lactulose and ASA for parozysmal afib. w.u done showed a negative MRI and EEG. (Buster Wright [phone]) NIH Stroke Scale - Last Known Well Date/Time & Onset Date Last Known Well: 03/09/19 Time Last Known Well: 20:00 - Initial Evaluation Level of consciousness: Alert Ask patient the month and their age: Answers one correctly Ask patient to open & close eyes; make fist and let go: Obeys both correctly Best gaze (horizontal eye movement): Normal Visual field testing: No visual field loss Facial paresis (Show teeth/raise eyebrows/close eyes tight): Normal symmetrical movement Motor Function: Left Arm: Normal Motor Function: Right Arm: Normal (extends arm 90 (or 45) degrees for 10 seconds without drift Motor Function: Left Leg: Normal (extends leg 30 degrees for 5 seconds without drift) Motor Function: Right Leg: Normal (extends leg 30 degrees for 5 seconds without drift) Limb Ataxia: No ataxia Sensory(Use pinprick test arms,legs,trunk,face/side to side): Normal Best language (Describe picture, name items, read sentences): No Aphasia Dysarthria (read several words): Normal articulation Extinction and Inattention: No abnormality - Total Score NIH Stroke Scale Score: 1 Past History - Past Medical History Allergies/Adverse Reactions: Allergies Allergy/AdvReac Type Severity Reaction Status Date / Time shellfish derived Allergy Verified 03/10/19 13:00 Home Medications: Ambulatory Orders Donepezil HCl 5 mg PO DAILY 11/26/18 Gabapentin 300 mg PO DAILY 11/26/18 Glipizide [Glipizide ER] 10 mg PO BID 11/26/18 Sitagliptin Phosphate [Januvia] 50 mg PO BID 11/26/18 Furosemide [Lasix] 20 mg PO DAILY #30 tablet 11/30/18 Pantoprazole Sodium [Protonix -] 40 mg PO DAILY #30 tablet.ec 11/30/18 Spironolactone [Aldactone] 50 mg PO DAILY #30 tablet 11/30/18 Insulin Degludec [Tresiba Flextouch U-100] 50 units SQ DAILY 02/08/19 Aspirin [ASA -] 81 mg PO DAILY #30 tab.chew 02/09/19 Lactulose 20 gm PO Q8H #2700 ml 02/09/19 Nadolol [Corgard -] 20 mg PO DAILY 02/09/19 Insulin Aspart (Niacinamide) [Fiasp 100 Unit/ml Vial] 100 unit SQ 03/10/19 Insulin Aspart [Novolog] 100 unit SQ 03/10/19 Miscellaneous Medical Supply [Outpatient Order] 10 mg MC ASDIR 03/10/19 Rifaximin [Xifaxan] 550 mg PO 03/10/19 Anemia: Yes Asthma: Yes Cardiac Disorders: Yes (AF) COPD: No Diabetes: Yes GI Disorders: Yes (duod ulcer) Liver Disease: Yes (Fatty liver, cirrosis, Hpe c) - Suicide/Smoking/Psychosocial Hx Smoking Status: No Smoking History: Never smoked Have you smoked in the past 12 months: No Number of Cigarettes Smoked Daily: 0 Hx Alcohol Use: No Drug/Substance Use Hx: No Substance Use Type: None Hx Substance Use Treatment: No Review of Systems - Review of Systems Able to Perform ROS?: No (ams) Comments:: 03/10/19 14:04 limited 2/2 AMS *Physical Exam - Vital Signs Last Vital Signs Temp Pulse Resp BP Pulse Ox 97.6 F 61 18 131/59 L 99 03/10/19 13:00 03/10/19 13:00 03/10/19 13:00 03/10/19 13:00 03/10/19 13:00 - Physical Exam Comments: 03/10/19 14:04 GENERAL: AOx1, in no acute distress HEAD: No signs of trauma, normocephalic, atraumatic EYES: PERRLA, EOMI, + slight sclera icterus, conjunctiva clear ENT: oropharynx clear without exudates. Moist mucosa NECK: Normal ROM, supple LUNGS: No distress, speaks full sentences, clear to auscultation bilaterally HEART: Regular rate and rhythm, normal S1 and S2, no murmurs, rubs or gallops, peripheral pulses normal and equal bilaterally. ABDOMEN: Soft, distended for 1 month, normoactive bowel sounds. No guarding, no rebound. No masses EXTREMITIES : Normal inspection, Normal range of motion, +1 pitting edema. No clubbing or cyanosis. NEUROLOGICAL: NIHSS score 1, unable to follow instructions for cerebellar function test, Normal speech, no focal sensorimotor deficits SKIN: Warm, Dry, normal turgor, no rashes or lesions noted ED Treatment Course - LABORATORY CBC & Chemistry Diagram: 03/10/19 14:43 03/10/19 14:43 Medical Decision Making - Medical Decision Making 03/10/19 14:03 The patient is a 68-year-old male, with a past medical history of asthma, DM, fatty liver, HCV and cirrhosis, who presents to the ED with 1 day of abnormal behavior that included forgetfulness, anxiety, repeating words as witnessed by the patient's daughter. The patient had weakness and swelling in the legs noted last night by his . The y denies any recent fevers, facial droop, diarrhea, hematuria, constipation, dysuria. ED Course: ddx ibnlt: hyperammonia vs infectious vs intracranial vs hypoglycemia cbc, cmp, coags, ekg, cxr, ammonia, head ct considering prior history likely ams 2/2 hyperammonia but will evaluate for other etiologies EKG: normal sinus rhythm HR 61, LBBB, no interval abnormalities, narrow QRS, ST and T wave segments and morphology normal. 03/10/19 17:04 ammonia elevated lactulose dosed pending head ct and ua -plan to admit 03/10/19 18:[address]: mild volume loss from prior head CT *DC/Admit/Observation/Transfer Diagnosis at time of Disposition: Hepatic encephalopathy - Discharge Dispostion Condition at time of disposition: Fair Decision to Admit order: Yes - Referrals - Patient Instructions - Post Discharge Activity
[2019-03-10 15:27] LABS: BASO % 1.2 % (0-2.0); EOS % 2.4 % (0-4.5); HEMATOCRIT 29.4 % (35.4-49); HEMOGLOBIN 10.1 GM/dL (11.7-16.9); LYMPH % 21.5 % (8-40); MCH 29.7 pg (25.7-33.7); MCHC 34.5 g/dl (32.0-35.9); MEAN CELL VOLUME 86.2 fl (80-96); MEAN PLT VOLUME 9.8 fl (7.5-11.1); MONO % 8.4 % (3.8-10.2); NEUT % 66.5 % (42.8-82.8); PLATELET COUNT 85 K/MM3 (134-434); RBC 3.41 M/mm3 (4.00-5.60); RDW 16.4 % (11.9-15.9); WHITE BLOOD COUNT 5.7 K/mm3 (4.0-10.0)
[2019-03-10 15:35] LABS: INR 1.22 (0.83-1.09); PROTHROMBIN TIME (PATIENT) 14.4 SEC (9.7-13.0)
--- NOTE | 2019-03-10 15:36 | EKG ---
Test Reason : Blood Pressure : / mmHG Vent. Rate : 061 BPM Atrial Rate : 061 BPM P-R Int : 146 ms QRS Dur : 154 ms QT Int : 476 ms P-R-T Axes : 034 008 130 degrees QTc Int : 479 ms NORMAL SINUS RHYTHM LEFT BUNDLE BRANCH BLOCK ABNORMAL ECG WHEN COMPARED WITH ECG OF 08-FEB-2019 09:12, NO SIGNIFICANT CHANGE WAS FOUND Confirmed by LLOYD VAUGHAN MD ([id number]) on 03/10/2019 3:36:24 PM Referred By: Confirmed By:LLOYD VAUGHAN MD
[2019-03-10 15:38] LABS: ACTIVATED PTT 33.2 SECONDS (25.2-36.5)
[2019-03-10 16:11] LABS: ALBUMIN 2.2 g/dl (3.4-5.0); ALK PHOS 84 U/L (45-117); ANION GAP 5 MMOL/L (8-16); BILIRUBIN,TOTAL 2.6 mg/dL (0.2-1); BLOOD UREA NITROGEN 31 mg/dL (7-18); CALCIUM 8.4 mg/dL (8.5-10.1); CHLORIDE 108 mmol/L (98-107); CO2 26 mmol/L (21-32); CREATININE 1.1 mg/dL (0.55-1.3); GLUCOSE,RANDOM 162 mg/dL (74-106); SGOT/AST 75 U/L (15-37); SGPT/ALT 38 U/L (13-61); SODIUM 139 mmol/L (136-145); TOT PROT 6.5 g/dl (6.4-8.2)
--- NOTE | 2019-03-10 16:13 | PDOC ---
Documentation entered by Tara Uribe SCRIBE, acting as scribe for Loreto Macias MD. Loreto Macias MD: This documentation has been prepared by the Jojo tilley Victoria, SCRIBE, under my direction and personally reviewed by me in its entirety. I confirm that the documentation accurately reflects all work, treatment, procedures, and medical decision making performed by me. Attending Attestation - Resident Resident Name: Stephany Pastrana - ED Attending Attestation I have performed the following: I have examined & evaluated the patient, The case was reviewed & discussed with the resident, I agree w/resident's findings & plan, Exceptions are as noted - HPI HPI: 03/10/19 15:43 The patient is a 68 year old male with past medical history of diabetes, hepatitis C, liver cirrhosis with chronic abdominal distention, and asthma who was brought in by family for change in mental baseline. Patients daughter reports that for the last day the patient has become increasingly forgetful and is repeating himself often. She also reports bilateral leg swelling and weakness last night both of which have since resolved. They report the patient has frequent episodes of similar altered mental status most likely due to elevated ammonia levels (last admission a month ago for this complaint). They report his symptoms improve with lactulose treatment. They deny any headache, visual changes, other focal neurological deficits. No recent head trauma or LOC. Denies any fevers, chills, NVD, cough, chest pain, SOB, or urinary complaints. PCP: N/A - Physicial Exam PE: 03/10/19 15:58 GENERAL: Awake, alert, oriented to name and location, in no acute distress. Requesting to go home HEAD: No signs of trauma EYES: PERRLA, EOMI, sclera anicteric, conjunctiva clear ENT: Nares patent, oropharynx clear without exudates. Moist mucosa NECK: Normal ROM, supple, no lymphadenopathy, JVD, or masses LUNGS: Breath sounds equal, clear to auscultation bilaterally. No wheezes, and no crackles HEART: Regular rate and rhythm, normal S1 and S2, no murmurs, rubs or gallops ABDOMEN: Soft, nontender, normoactive bowel sounds. No guarding, no rebound. No masses EXTREMITIES: Normal range of motion, no edema. No cords, erythema, or tenderness NEUROLOGICAL: Normal speech, cranial nerves intact, equal strength and sensation b/l SKIN: Warm, Dry, normal turgor, no rashes or lesions noted. - Medical Decision Making 03/10/19 16:07 68yo M with MMP including HCV, frequent episodes of AMS thought to be 2/2 hyperammonia (recent neg MRI and EEG) presents to the ED with recurrent episode of AMS. Per family, he was repeating himself last night and this morning refused to take his medications prompting them to bring him to the ED. At this time, his sensorium has cleared mostly. Pt states he will take his medications. Plan to do broad metabolic vs infectious vs ischemic vs neurologic w/u and reassess 03/10/19 17:31 Ammonia level 135 which explains his AMS Pt and family report compliance with lactulse Will order additional dose CTH, UA pending, plan to admit for further mgmt Heart Score/ECG Review #1 03/10/19 16:07 Twelve-lead EKG was performed and reviewed by me. Normal sinus rhythm, rate 61. Normal axis. Left bundle branch block. When compared to previous EKG no significant change.
[2019-03-10] MEDS ORDERED: LACTULOSE 20 GM/30 ML UDC (FOR ORAL USE ONLY) PO ONE (16:57)
[2019-03-10] MEDS ORDERED: LACTULOSE 20 GM/30 ML UDC (FOR ORAL USE ONLY) ONE ×2 (17:04→20:52)
--- NOTE | 2019-03-10 19:06 | PN ---
Teaching Attending Note Name of Resident: Ventura Alvarez ATTENDING PHYSICIAN STATEMENT I saw and evaluated the patient. I reviewed the resident's note and discussed the case with the resident. I agree with the resident's findings and plan as documented. SUBJECTIVE: Patient is a 68 year old man with PMH of NIDDM, hepatitis C disease, liver cirrhosis with chronic abdominal distention, and asthma who was brought in by family for change in baseline mental status. Patients daughter reports that for the last day the patient has become increasingly forgetful and is repeating himself often. She also reports bilateral leg swelling and weakness last night both of which have since resolved. They report the patient has frequent episodes of similar altered mental status most likely due to elevated ammonia levels (last admission a month ago for this complaint). They report his symptoms improve with lactulose treatment. They deny any headache, visual changes, other focal neurological deficits. No recent head trauma or LOC. Denies any fevers, chills, nausea, vomiting, diarrhea, cough, chest pain, SOB, or urinary complaints. OBJECTIVE: Alert Vital Signs Period Temp Pulse Resp BP Sys/Shen Pulse Ox Last 24 Hr 97.6 F-98.6 F 61-78 18-18 122-131/59-78 98-99 HEENT: No Jaundice, eye redness or discharge, Edentulous, PERRLA, EOMI. Normocephalic, atraumatic. External ears are normal and hearing is grossly intact. No nasal discharge. Neck: Supple, nontender. No palpable adenopathy or thyromegaly. No JVD Chest: Good effort. Clear to auscultation and percussion. Heart: Regular. No S3, rub or murmur Abdomen: Distended, soft, nontender and no HSM. No rebound or guarding. Normal bowel sounds. Ext: Peripheral pulses intact. No leg edema. Skin: Warm and dry. No petechiae, rash or ecchymosis. Neuro: Alert. Oriented x3. No asterexis. CN 2-12 grossly intact. Sensation grossly intact in all four extremities and DTR are symmetric. Psych: Appropriate mood and affect. Good insight. Current Medications Generic Name Dose Route Start Last Admin Trade Name Freq PRN Reason Stop Dose Admin Aspirin 81 mg 03/11/19 10:00 Asa - PO DAILY REBEL Donepezil HCl 5 mg 03/11/19 10:00 Aricept - PO DAILY [facility] Furosemide 20 mg 03/11/19 10:00 Lasix - PO DAILY [facility] Gabapentin 300 mg 03/11/19 10:00 Neurontin - PO DAILY [facility] Insulin Aspart 1 vial 03/10/19 22:00 Novolog Vial Sliding Scale - SQ ACHS [facility] Protocol Insulin Detemir 50 units 03/11/19 07:00 Levemir Vial SQ AM [facility] Lactulose 20 gm 03/10/19 19:45 Cephulac (Oral Use) PO Q8H [facility] Nadolol 20 mg 03/11/19 10:00 Corgard - PO DAILY [facility] Rifaximin 550 mg 03/10/19 22:00 Xifaxan - PO BID [facility] Spironolactone 50 mg 03/11/19 10:00 Aldactone - PO DAILY [facility] Home Medications Medication Instructions Recorded Donepezil HCl 5 mg PO DAILY 11/26/18 Gabapentin 300 mg PO DAILY 11/26/18 Glipizide [Glipizide ER] 10 mg PO BID 11/26/18 Sitagliptin Phosphate [Januvia] 50 mg PO BID 11/26/18 Furosemide [Lasix] 20 mg PO DAILY #30 tablet 11/30/18 Pantoprazole Sodium [Protonix -] 40 mg PO DAILY #30 tablet.ec 11/30/18 Spironolactone [Aldactone] 50 mg PO DAILY #30 tablet 11/30/18 Insulin Degludec [Tresiba 50 units SQ DAILY 02/08/19 Flextouch U-100] Aspirin [ASA -] 81 mg PO DAILY #30 tab.chew 02/09/19 Lactulose 20 gm PO Q8H #2700 ml 02/09/19 Nadolol [Corgard -] 20 mg PO DAILY 02/09/19 Insulin Aspart (Niacinamide) 100 unit SQ 03/10/19 [Fiasp 100 Unit/ml Vial] Insulin Aspart [Novolog] 100 unit SQ 03/10/19 Miscellaneous Medical Supply 10 mg MC ASDIR 03/10/19 [Outpatient Order] Rifaximin [Xifaxan] 550 mg PO 03/10/19 Abnormal Lab Results 03/10/19 03/10/19 03/10/19 14:33 14:43 14:43 RBC 3.41 L Hgb 10.1 L Hct 29.4 L RDW 16.4 H Plt Count 85 L D PT with INR 14.40 H INR 1.22 H Chloride 108 H Anion Gap 5 L BUN 31 H Random Glucose 162 H Calcium 8.4 L Total Bilirubin 2.6 H AST 75 H Ammonia B-Natriuretic Peptide Albumin 2.2 L 03/10/19 03/10/19 14:43 14:43 RBC Hgb Hct RDW Plt Count PT with INR INR Chloride Anion Gap BUN Random Glucose Calcium Total Bilirubin AST Ammonia 134.80 H B-Natriuretic Peptide 388.8 H Albumin ASSESSMENT AND PLAN: 1. Hepatic encephalopathy - No obvious precipitating factor and the prompt return to baseline mental status is unusual. No acute pathology on head CT scan and UA is pending. EKG shows NSR with LBBB and no significant ST-T wave changes. Will treat with lactulose 30 gm po q 6 hours and rifaximin 550 mg po q 12 hours, avoid electrolyte derangement and ensure adequate hydration. Monitor closely for features of hepatic encephalopathy. Anemia and low platelets likely due to liver disease - will monitor closely. 2. Hypoalbuminemia - Possibly due to combined effects of malnutrition and inflammation associated with comorbid chronic conditions. Will rule out proteinuria, ensure adequate dietary protein intake and also consult sole tacker. 3. DM For now, we will hold the home diabetes drugs and implement sliding scale insulin regimen. Provide comprehensive diabetes care with patient teaching and counseling about the importance of adherence to prescribed diabetes regimen, euglycemia, eye care and foot care. 4. Anemia - Likely multifactorial, but chiefly due to liver disease. Will do basic anemia work up including serial stool guaiacs, reticulocyte count and iron studies. 5. Obesity Counseled on the risks associated with obesity. Will provide patient all the necessary assistance, counseling and positive reinforcement to facilitate weight loss. Consult sole tacker. 6. DVT prophylaxis - Lovenox 40 mg SQ q 24 hours. Monitor platelets daily. 7. Advance directives - Full code
--- NOTE | 2019-03-10 19:33 | HP ---
CHIEF COMPLAINT: AMS HISTORY OF PRESENT ILLNESS: Mr. Diehl is a 68 male with a past medical hx of asthma, DM, fatty liver, HCV, and cirrhosis who presents to the ED with a 1 day history of "abnormal behavior " per his . His is at bedside and helped provide history. She noted that last night he demonstrated increased anxiety, forgetfulness, generalized weakness of the lower extremities, tangential speech, and disorientation to surroundings. The next morning, his noted that his mental status had not improved and she gave him 1 teaspoon of lactulose without notable relief of symptoms. Per patient's , she reports that currently he is at his baseline. Patient reports being compliant with medications. Mr. Diehl follows with Dr. Fish and has an appointment tomorrow. He notes an average of 4 BM/day, although he has had only one BM today. Patient denies fevers, chills, recent illness, headaches, N/V, changes in urine color, changes in stool color/ consistency, abdominal pain, chest pain, SOB ER course was notable for: (1) Lactulose 20 mg PO given (2) Cranial CT w/o contrast - mild volume loss, no intracranial lesions or hemorrhage (3) ECG - NSR, LBBB (no change compared to 02/08/19) (4) CXR (no acute pathology) Recent Travel: Denies PAST MEDICAL HISTORY: asthma, DM, fatty liver, HCV, cirrhosis PAST SURGICAL HISTORY: Social History: Smoking: denies current or prior use Alcohol: denies current or prior Drugs: denies current or prior use Family History: none Allergies: shellfish derived Allergy (Verified 03/10/19 13:00) HOME MEDICATIONS: Home Medications Medication Instructions Recorded Donepezil HCl 5 mg PO DAILY 11/26/18 Gabapentin 300 mg PO DAILY 11/26/18 Glipizide [Glipizide ER] 10 mg PO BID 11/26/18 Sitagliptin Phosphate [Januvia] 50 mg PO BID 11/26/18 Furosemide [Lasix] 20 mg PO DAILY #30 tablet 11/30/18 Pantoprazole Sodium [Protonix -] 40 mg PO DAILY #30 tablet.ec 11/30/18 Spironolactone [Aldactone] 50 mg PO DAILY #30 tablet 11/30/18 Insulin Degludec [Tresiba 50 units SQ DAILY 02/08/19 Flextouch U-100] Aspirin [ASA -] 81 mg PO DAILY #30 tab.chew 02/09/19 Lactulose 20 gm PO Q8H #2700 ml 02/09/19 Nadolol [Corgard -] 20 mg PO DAILY 02/09/19 Insulin Aspart (Niacinamide) 100 unit SQ 03/10/19 [Fiasp 100 Unit/ml Vial] Insulin Aspart [Novolog] 100 unit SQ 03/10/19 Miscellaneous Medical Supply 10 mg MC ASDIR 03/10/19 [Outpatient Order] Rifaximin [Xifaxan] 550 mg PO 03/10/19 REVIEW OF SYSTEMS CONSTITUTIONAL: Absent: fever, chills, diaphoresis, generalized weakness, malaise, loss of appetite, weight change HEENT: Absent: rhinorrhea, nasal congestion, throat pain, throat swelling, difficulty swallowing, mouth swelling, ear pain, eye pain, visual changes CARDIOVASCULAR: Absent: chest pain, syncope, palpitations, irregular heart rate, lightheadedness , peripheral edema RESPIRATORY: Absent: cough, shortness of breath, dyspnea with exertion, orthopnea, wheezing, stridor, hemoptysis GASTROINTESTINAL: Absent: abdominal pain, abdominal distension, nausea, vomiting, diarrhea, constipation, melena, hematochezia GENITOURINARY: Absent: dysuria, frequency, urgency, hesitancy, hematuria, flank pain, genital pain MUSCULOSKELETAL: Absent: myalgia, arthralgia, joint swelling, back pain, neck pain SKIN: Absent: rash, itching, pallor HEMATOLOGIC/IMMUNOLOGIC: Absent: easy bleeding, easy bruising, lymphadenopathy, frequent infections ENDOCRINE: Absent: unexplained weight gain, unexplained weight loss, heat intolerance, cold intolerance NEUROLOGIC: Absent: headache, focal weakness or paresthesias, dizziness, unsteady gait, seizure, mental status changes, bladder or bowel incontinence PSYCHIATRIC: Absent: anxiety, depression, suicidal or homicidal ideation, hallucinations. PHYSICAL EXAMINATION Vital Signs - 24 hr 03/10/19 03/10/19 13:00 17:25 Temperature 97.6 F 98.6 F Pulse Rate 61 Pulse Rate [ 78 Right] Respiratory 18 18 Rate Blood Pressure 131/59 L Blood Pressure 122/78 [Right Arm] O2 Sat by Pulse 99 98 Oximetry (%) GENERAL: Awake, alert, and fully oriented, in no acute distress. HEAD: Normal with no signs of trauma. EYES: Pupils equal, round and reactive to light, extraocular movements intact, sclera anicteric, conjunctiva clear. No lid lag. EARS, NOSE, THROAT: Ears normal, nares patent, oropharynx clear without exudates. Moist mucous membranes. NECK: Normal range of motion, supple without lymphadenopathy, JVD, or masses. LUNGS: Breath sounds equal, clear to auscultation bilaterally. No wheezes, and no crackles. No accessory muscle use. HEART: Regular rate and rhythm, normal S1 and S2 without murmur, rub or gallop. ABDOMEN: Soft, nontender, distended, normoactive bowel sounds, no guarding, no rebound, no masses. No hepatomegaly or splenomegaly. MUSCULOSKELETAL: Normal range of motion at all joints. No bony deformities or tenderness. No CVA tenderness. UPPER EXTREMITIES: 2+ pulses, warm, well-perfused. No cyanosis. No clubbing. No peripheral edema. LOWER EXTREMITIES: 2+ pulses, warm, well-perfused. No calf tenderness. No peripheral edema. NEUROLOGICAL: Cranial nerves II-XII intact. Normal speech. Normal gait. PSYCHIATRIC: Cooperative. Good eye contact. Appropriate mood and affect. SKIN: Warm, dry, normal turgor, no rashes or lesions noted, normal capillary refill. Laboratory Results - last 24 hr 03/10/19 03/10/19 03/10/19 14:33 14:43 14:43 WBC 5.7 RBC 3.41 L Hgb 10.1 L Hct 29.4 L MCV 86.2 MCH 29.7 MCHC 34.5 RDW 16.4 H Plt Count 85 L D MPV 9.8 Absolute Neuts (auto) 3.8 Neutrophils % 66.5 Lymphocytes % 21.5 Monocytes % 8.4 Eosinophils % 2.4 Basophils % 1.2 Nucleated RBC % 0 PT with INR 14.40 H INR 1.22 H PTT (Actin FS) 33.2 Sodium 139 Potassium 4.0 Chloride 108 H Carbon Dioxide 26 Anion Gap 5 L BUN 31 H Creatinine 1.1 Est GFR (CKD-EPI)AfAm 78.41 Est GFR (CKD-EPI)NonAf 67.66 POC Glucometer Random Glucose 162 H Calcium 8.4 L Total Bilirubin 2.6 H AST 75 H ALT 38 Alkaline Phosphatase 84 Ammonia Troponin I < 0.02 B-Natriuretic Peptide Total Protein 6.5 Albumin 2.2 L 03/10/19 03/10/19 03/10/19 14:43 14:43 16:01 WBC RBC Hgb Hct MCV MCH MCHC RDW Plt Count MPV Absolute Neuts (auto) Neutrophils % Lymphocytes % Monocytes % Eosinophils % Basophils % Nucleated RBC % PT with INR INR PTT (Actin FS) Sodium Potassium Chloride Carbon Dioxide Anion Gap BUN Creatinine Est GFR (CKD-EPI)AfAm Est GFR (CKD-EPI)NonAf POC Glucometer 157 Random Glucose Calcium Total Bilirubin AST ALT Alkaline Phosphatase Ammonia 134.80 H Troponin I B-Natriuretic Peptide 388.8 H Total Protein Albumin ASSESSMENT/PLAN: 68 male with a past medical hx of asthma, DM, fatty liver, HCV, and cirrhosis who presents to the ED with a 1 day history of "abnormal behavior" and admitted for evaluation and treatment of altered mental status #Altered Mental Status: unclear etiology as it has resolved prior to admitting team evaluation. Could be related to acute on chronic hepatic encephalopathy as patient presented with this in the past. There was no UA on admission which could have elucidated UTI as cause of acute AMS, dehydration could also be a cause of this patient's AMS -Will obtain urinalysis to r/o UTI -home dose lactulose 20mg PO TID, will increase to Q8h -Start rifaximin 550 mg PO BID -continue home dose of lasix 20 mg PO QD -1 more ammonia level pending for morning -GI consulted Dr. Fish who sees patient on outpatient basis -continue nadolol -continue spironolactone #Diabetes: patient's blood glucose only mildly elevated ~160, but patient was not NPO, appears well controlled -A1C in AM -holding home antiglycemics -start levemir 50U in AM (patient on tresiba at home, 1:1 conversion) -insulin sliding scale coverage #Anemia: was present on prior admission -likely 2/2 chronic disease -will get iron studies #FEN -no standing fluids -lytes normal -low sodium #Prophylaxis -SCDs #Disposition -admit med surg, anticipate DC in 1-2 days Visit type - Emergency Visit Emergency Visit: Yes ED Registration Date: 03/10/19 Care time: The patient presented to the Emergency Department on the above date and was hospitalized for further evaluation of their emergent condition. - New Patient This patient is new to me today: Yes Date on this admission: 03/10/19 - Critical Care Critical Care patient: No
[2019-03-10] MEDS: LACTULOSE 20 GM/30 ML UDC (FOR ORAL USE ONLY) PO SCH (20:57)
[2019-03-10] MEDS: RIFAXIMIN 550 MG TABLET (UD) PO SCH (22:00)
[2019-03-10] MEDS: INSULIN SLIDING SCALE (NOVOLOG) 1 VIAL SQ SCH (22:57)
[2019-03-11 01:02] LABS: EPI CELLS 4.3 /HPF (0-5/HPF); PH,URINE 5.5 (5.0-8.0); URINE APPEARANCE CLOUDY; URINE BACTERIA 97.9 /hpf (NEGATIVE); URINE BILIRUBIN 1+ (NEGATIVE); URINE CASTS 23 /lpf (0-8); URINE COLOR DK YELLOW; URINE GLUCOSE (UA) NEGATIVE (NEGATIVE); URINE KETONE TRACE (NEGATIVE); URINE LEUK ESTERASE NEGATIVE (NEGATIVE); URINE NITRITE NEGATIVE (NEGATIVE); URINE PROTEIN 2+ (NEGATIVE); URINE WBC 6 /hpf (0-5)
[2019-03-11 01:58] LABS: URINE RBC 141 /hpf (0-4)
[2019-03-11 01:59] LABS: YEAST 3 (NEGATIVE)
[2019-03-11] MEDS: LACTULOSE 20 GM/30 ML UDC (FOR ORAL USE ONLY) PO SCH ×4 (03:51→23:37)
[2019-03-11 06:07] VITALS: BMI 37.8
[2019-03-11] MEDS: INSULIN SLIDING SCALE (NOVOLOG) 1 VIAL SQ SCH ×4 (06:56→21:14)
[2019-03-11] MEDS: INSULIN (LEVEMIR) 100 UNITS/ML UNITS SQ SCH (06:56)
[2019-03-11 07:33] LABS: HEMATOCRIT 25.6 % (35.4-49); HEMOGLOBIN 8.7 GM/dL (11.7-16.9); MCH 29.6 pg (25.7-33.7); MCHC 34.1 g/dl (32.0-35.9); MEAN CELL VOLUME 86.6 fl (80-96); MEAN PLT VOLUME 9.1 fl (7.5-11.1); PLATELET COUNT 64 K/MM3 (134-434); RBC 2.96 M/mm3 (4.00-5.60); RDW 16.1 % (11.9-15.9); WHITE BLOOD COUNT 4.5 K/mm3 (4.0-10.0)
--- NOTE | 2019-03-11 08:00 | CON.GI ---
Consult Consult Specialty:: GI Referred by:: Dr. Ventura Alvarez Reason for Consultation:: AMS, Hepatic Encephalopathy - History of Present Illness History of Present Illness: Patient is a 68 y/o male with past medical history of DM, fatty liver, Hepatitis C, and liver cirrhosis. I was consulted for to evaluate this patient for hepatic encephalopathy. Labs in ER significant for mildly elevated ammonia 134.80, ALT 75. On examination patient cannot say events that lead up to ER arrival. Complain of RLQ pain described as burning and non-radiating. There are no specific exacerbating factors and pain is relieved after taking Lactulose. Patient also states having a 10lb weight loss in 2 weeks. Denies nausea, vomiting, dysphagia, rectal bleeding, or melena. 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 History of Recent Travel: No Home Medications - Allergies Allergies/Adverse Reactions: Allergies Allergy/AdvReac Type Severity Reaction Status Date / Time shellfish derived Allergy Verified 03/10/19 13:00 - Home Medications Home Medications: Ambulatory Orders Donepezil HCl 5 mg PO DAILY 11/26/18 Gabapentin 300 mg PO DAILY 11/26/18 Glipizide [Glipizide ER] 10 mg PO BID 11/26/18 Sitagliptin Phosphate [Januvia] 50 mg PO BID 11/26/18 Furosemide [Lasix] 20 mg PO DAILY #30 tablet 11/30/18 Pantoprazole Sodium [Protonix -] 40 mg PO DAILY #30 tablet.ec 11/30/18 Spironolactone [Aldactone] 50 mg PO DAILY #30 tablet 11/30/18 Insulin Degludec [Tresiba Flextouch U-100] 50 units SQ DAILY 02/08/19 Aspirin [ASA -] 81 mg PO DAILY #30 tab.chew 02/09/19 Lactulose 20 gm PO Q8H #2700 ml 02/09/19 Nadolol [Corgard -] 20 mg PO DAILY 02/09/19 Miscellaneous Medical Supply [Outpatient Order] 10 mg [facility] ASDIR 03/10/19 Rifaximin [Xifaxan] 550 mg PO 03/10/19 Family Disease History - Family Disease History Family Disease History: Other: Father (: 50's: Diabetic complications), Mother (: unclear when as she was not in his life), Brother (3, 1 he knew and is healthy), Daughter (3, healthy) Review of Systems - Review of Systems Constitutional: reports: Unintentional Wgt. Loss Eyes: reports: No Symptoms HENT: reports: No Symptoms Neck: reports: No Symptoms Cardiovascular: reports: No Symptoms Respiratory: reports: No Symptoms Gastrointestinal: reports: Abdominal Pain Genitourinary: reports: No Symptoms Breasts: reports: No Symptoms Reported Musculoskeletal: reports: No Symptoms Integumentary: reports: No Symptoms Neurological: reports: No Symptoms Endocrine: reports: No Symptoms Hematology/Lymphatic: reports: No Symptoms Psychiatric: reports: No Symptoms Physical Exam-GI Vital Signs: Vital Signs Temperature 98.8 F 03/11/19 01:35 Pulse Rate 66 03/11/19 01:35 Respiratory Rate 20 03/11/19 07:00 Blood Pressure 137/61 03/11/19 01:35 O2 Sat by Pulse Oximetry (%) 98 03/11/19 07:00 Constitutional: Yes: No Distress, Calm Eyes: Yes: Conjunctiva Clear HENT: Yes: Atraumatic Cardiovascular: Yes: Regular Rate and Rhythm Respiratory: Yes: Regular, CTA Bilaterally Gastrointestinal Inspection: Yes: Other (obese). No: WNL, Ascites, Distention, Hernia, Scars ...Auscultate: Yes: Normoactive Bowel Sounds. No: Hyperactive Bowel Sounds, Hypoactive Bowel Sounds, No Bowel Sounds, Other ...Palpate: Yes: Soft. No: Firm/Rigid, Guarding, Hepatomegaly, Mass, Pulsatile Mass, Splenomegaly, Tenderness, Tenderness, Epigastium, Tenderness, Rebound, Other ...Percussion: Yes: Tympanitic. No: Dullness, Fluid Wave, Other Edema: Yes Edema: LLE: 2+, RLE: 2+ Neurological: Yes: Alert Psychiatric: Yes: Alert Labs: INR, PTT INR 1.22 (0.83-1.09) H 03/10/19 14:33 Active Medications Generic Name Dose Route Start Last Admin Trade Name Lizbeth PRN Reason Stop Dose Admin Aspirin 81 mg 03/11/19 10:00 Asa - PO DAILY REBEL Donepezil HCl 5 mg 03/11/19 10:00 Aricept - PO DAILY REBEL Furosemide 20 mg 03/11/19 10:00 Lasix - PO DAILY REBEL Gabapentin 300 mg 03/11/19 10:00 Neurontin - PO DAILY REBEL Insulin Aspart 1 vial 03/10/19 22:00 03/11/19 06:56 Novolog Vial Sliding Scale - SQ Not Given ACHS [facility] Protocol Insulin Detemir 50 units 03/11/19 07:00 03/11/19 06:56 Levemir Vial SQ 50 units AM REBEL Administration Lactulose 20 gm 03/10/19 19:45 03/11/19 03:51 Cephulac (Oral Use) PO 20 gm Q8H REBEL Administration Nadolol 20 mg 03/11/19 10:00 Corgard - PO DAILY REBEL Rifaximin 550 mg 03/10/19 22:00 03/10/19 22:00 Xifaxan - PO 550 mg BID REBEL Administration Spironolactone 50 mg 03/11/19 10:00 Aldactone - PO DAILY REBEL Problem List - Problems (1) Hepatic encephalopathy Assessment/Plan: -Xifaxin 550mg BID Code(s): K72.90 - HEPATIC FAILURE, UNSPECIFIED WITHOUT COMA (2) Cirrhosis Assessment/Plan: -continue Nadolol and Lactulose -Abdominal US Code(s): K74.60 - UNSPECIFIED CIRRHOSIS OF LIVER Qualifiers: Hepatic cirrhosis type: unspecified hepatic cirrhosis Ascites presence: with ascites Qualified Code(s): K74.60 - Unspecified cirrhosis of liver; R18.8 - Other ascites (3) Hepatitis C Assessment/Plan: -Hep C quant Code(s): B19.20 - UNSPECIFIED VIRAL HEPATITIS C WITHOUT HEPATIC COMA Qualifiers: Viral hepatitis chronicity: chronic Hepatic coma status: without hepatic coma Qualified Code(s): B18.2 - Chronic viral hepatitis C (4) Unintentional weight loss Assessment/Plan: -AFP, CEA, CA 19-9, PSA Code(s): R63.4 - ABNORMAL WEIGHT LOSS
[2019-03-11 08:10] LABS: CALCIUM 8.5 mg/dL (8.5-10.1); MAGNESIUM 2.3 mg/dL (1.8-2.4); POTASSIUM 3.4 mmol/L (3.5-5.1)
--- NOTE | 2019-03-11 08:38 | PN ---
Teaching Attending Note Name of Resident: Bossman Starr ATTENDING PHYSICIAN STATEMENT I saw and evaluated the patient. I reviewed the resident's note and discussed the case with the resident. I agree with the resident's findings and plan as documented. SUBJECTIVE: Patient is feeling better ,back to his baseline. OBJECTIVE: Vital Signs Temperature 98.8 F 03/11/19 01:35 Pulse Rate 66 03/11/19 01:35 Respiratory Rate 20 03/11/19 07:00 Blood Pressure 137/61 03/11/19 01:35 O2 Sat by Pulse Oximetry (%) 98 03/11/19 07:00 Initial Vital Signs Temp Pulse Resp BP Pulse Ox 97.6 F 61 18 131/59 L 99 03/10/19 13:00 03/10/19 13:00 03/10/19 13:00 03/10/19 13:00 03/10/19 13:00 GENERAL: The patient is awake, alert, and fully oriented, in no acute distress. HEAD: Normal with no signs of trauma. EYES: PERRL, extraocular movements intact, sclera anicteric, conjunctiva clear. ENT: Ears normal, oropharynx clear without exudates, moist mucous membranes. NECK: Trachea midline, full range of motion, supple. LUNGS: Breath sounds equal, clear to auscultation bilaterally, no wheezes, no crackles, no accessory muscle use. HEART: Regular rate and rhythm, S1, S2 without murmur, rub or gallop. ABDOMEN: Soft, nontender, nondistended, normoactive bowel sounds, no guarding, no rebound, no hepatosplenomegaly, no masses. EXTREMITIES: 2+ pulses, warm, well-perfused, no edema. NEUROLOGICAL: Cranial nerves II through XII grossly intact. Normal speech, gait not observed. PSYCH: Normal mood, normal affect. SKIN: Warm, dry, normal turgor, no rashes or lesions noted CBCD WBC 4.5 K/mm3 (4.0-10.0) 03/11/19 06:45 RBC 2.96 M/mm3 (4.00-5.60) L 03/11/19 06:45 Hgb 8.7 GM/dL (11.7-16.9) L 03/11/19 06:45 Hct 25.6 % (35.4-49) L 03/11/19 06:45 MCV 86.6 fl (80-96) 03/11/19 06:45 MCHC 34.1 g/dl (32.0-35.9) 03/11/19 06:45 RDW 16.1 % (11.9-15.9) H 03/11/19 06:45 Plt Count 64 K/MM3 (134-434) L D 03/11/19 06:45 MPV 9.1 fl (7.5-11.1) 03/11/19 06:45 CMP Sodium 142 mmol/L (136-145) 03/11/19 06:45 Potassium 3.4 mmol/L (3.5-5.1) L 03/11/19 06:45 Chloride 108 mmol/L (98-107) H 03/11/19 06:45 Carbon Dioxide 29 mmol/L (21-32) 03/11/19 06:45 Anion Gap 5 MMOL/L (8-16) L 03/11/19 06:45 BUN 30 mg/dL (7-18) H 03/11/19 06:45 Creatinine 1.0 mg/dL (0.55-1.3) 03/11/19 06:45 Random Glucose 148 mg/dL (74-106) H 03/11/19 06:45 Calcium 8.5 mg/dL (8.5-10.1) 03/11/19 06:45 Total Bilirubin 2.6 mg/dL (0.2-1) H 03/10/19 14:43 AST 75 U/L (15-37) H 03/10/19 14:43 ALT 38 U/L (13-61) 03/10/19 14:43 Alkaline Phosphatase 84 U/L (45-117) 03/10/19 14:43 Total Protein 6.5 g/dl (6.4-8.2) 03/10/19 14:43 Albumin 2.2 g/dl (3.4-5.0) L 03/10/19 14:43 CARDIAC ENZYMES Troponin I < 0.02 ng/ml (0.00-0.05) 03/10/19 14:43 Current Medications Generic Name Dose Route Start Last Admin Trade Name Freq PRN Reason Stop Dose Admin Aspirin 81 mg 03/11/19 10:00 Asa - PO DAILY REBEL Donepezil HCl 5 mg 03/11/19 10:00 Aricept - PO DAILY [facility] Furosemide 20 mg 03/11/19 10:00 Lasix - PO DAILY [facility] Gabapentin 300 mg 03/11/19 10:00 Neurontin - PO DAILY [facility] Insulin Aspart 1 vial 03/10/19 22:00 03/11/19 06:56 Novolog Vial Sliding Scale - SQ Not Given ACHS [facility] Protocol Insulin Detemir 50 units 03/11/19 07:00 03/11/19 06:56 Levemir Vial SQ 50 units AM [facility] Administration Lactulose 20 gm 03/10/19 19:45 03/11/19 03:51 Cephulac (Oral Use) PO 20 gm Q8H REBEL Administration Nadolol 20 mg 03/11/19 10:00 Corgard - PO DAILY [facility] Rifaximin 550 mg 03/10/19 22:00 03/10/19 22:00 Xifaxan - PO 550 mg BID [facility] Administration Spironolactone 50 mg 03/11/19 10:00 Aldactone - PO DAILY [facility] Home Medications Medication Instructions Recorded Donepezil HCl 5 mg PO DAILY 11/26/18 Gabapentin 300 mg PO DAILY 11/26/18 Glipizide [Glipizide ER] 10 mg PO BID 11/26/18 Sitagliptin Phosphate [Januvia] 50 mg PO BID 11/26/18 Furosemide [Lasix] 20 mg PO DAILY #30 tablet 11/30/18 Pantoprazole Sodium [Protonix -] 40 mg PO DAILY #30 tablet.ec 11/30/18 Spironolactone [Aldactone] 50 mg PO DAILY #30 tablet 11/30/18 Insulin Degludec [Tresiba 50 units SQ DAILY 02/08/19 Flextouch U-100] Aspirin [ASA -] 81 mg PO DAILY #30 tab.chew 02/09/19 Lactulose 20 gm PO Q8H #2700 ml 02/09/19 Nadolol [Corgard -] 20 mg PO DAILY 02/09/19 Miscellaneous Medical Supply 10 mg [facility] ASDIR 03/10/19 [Outpatient Order] Rifaximin [Xifaxan] 550 mg PO 03/10/19 ASSESSMENT AND PLAN: Patient is 68 male with a past medical hx of asthma, DM, fatty liver, HCV, and cirrhosis who presents to the ED with a 1 day history of acute change of mental status, presented with abnormal behavior and is admitted for further evaluation and treatment. # Acute change of Mental Status due to metabolic encephalopathy; resolved prior to admitting team evaluation. will continue lactulose 20mg PO TID, will increase to Q8h, continue rifaximin 550 mg PO BID, lasix, spironolactone , will check with GI whether to increase his lasix/spironolactone # Elevated ammonia level will continue his Lactulose, GI consulted Dr. Fish who sees patient on outpatient basis, continue nadolol/spironolactone and lasix # Liver Cirrhosis continue current meds. # Hx of hepatitis C #T2DM: started on levemir 50U in AM (patient on tresiba at home, 1:1 conversion ), with insulin sliding scale coverage #Normocytic Anemia: stable DVT Prophylaxis: SCDs admit med surg possible discharge in am
[2019-03-11 09:04] LABS: BILIRUBIN,DIRECT 0.8 mg/dL (0.0-0.2); BILIRUBIN,TOTAL 2.5 mg/dL (0.2-1); TOT PROT 5.8 g/dl (6.4-8.2)
--- NOTE | 2019-03-11 09:05 | PN ---
Physical Exam: SUBJECTIVE: Patient seen and examined this AM. States he is feeling well. understands that he was here for confusion but now feels he has completely improved back to baseline. OBJECTIVE: Vital Signs Period Temp Pulse Resp BP Sys/Shen Pulse Ox Last 24 Hr 97.6 F-98.8 F 61-78 18-20 122-137/59-78 98-99 GEN: A&O X 3, no acute distress HEENT: No scleral icterus, PERRL, no conjunctival pallow HEART: RRR, no murmurs noted LUNGS: CTA b/l, no wheezes or crackles noted ABDOMEN: Soft, obese, nontender to palpation, normoactive bowel sounds EXTREMITIES: 1+ pitting edema in b/l LE, no calf tenderness NEURO: CN II-XII in tact, no gross deficits, 5/5 strength throughout, no sensation deficits, normal gait observed with walker ambulating to bathroom Laboratory Results - last 24 hr 03/10/19 03/10/19 03/10/19 14:33 14:43 14:43 WBC 5.7 RBC 3.41 L Hgb 10.1 L Hct 29.4 L MCV 86.2 MCH 29.7 MCHC 34.5 RDW 16.4 H Plt Count 85 L D MPV 9.8 Absolute Neuts (auto) 3.8 Neutrophils % 66.5 Lymphocytes % 21.5 Monocytes % 8.4 Eosinophils % 2.4 Basophils % 1.2 Nucleated RBC % 0 Retic Count PT with INR 14.40 H INR 1.22 H PTT (Actin FS) 33.2 Sodium 139 Potassium 4.0 Chloride 108 H Carbon Dioxide 26 Anion Gap 5 L BUN 31 H Creatinine 1.1 Est GFR (CKD-EPI)AfAm 78.41 Est GFR (CKD-EPI)NonAf 67.66 POC Glucometer Random Glucose 162 H Calcium 8.4 L Phosphorus Magnesium Ferritin Total Bilirubin 2.6 H AST 75 H ALT 38 Alkaline Phosphatase 84 Ammonia Troponin I < 0.02 B-Natriuretic Peptide Total Protein 6.5 Albumin 2.2 L TSH Urine Color Urine Appearance Urine pH Ur Specific [place] Urine Protein Urine Glucose (UA) Urine Ketones Urine Blood Urine Nitrite Urine Bilirubin Urine Urobilinogen Ur Leukocyte Esterase Urine WBC (Auto) Urine RBC (Auto) Urine Casts (Auto) U Epithel Cells (Auto) Urine Bacteria (Auto) Urine Yeast (Auto) 03/10/19 03/10/19 03/10/19 14:43 14:43 16:01 WBC RBC Hgb Hct MCV MCH MCHC RDW Plt Count MPV Absolute Neuts (auto) Neutrophils % Lymphocytes % Monocytes % Eosinophils % Basophils % Nucleated RBC % Retic Count PT with INR INR PTT (Actin FS) Sodium Potassium Chloride Carbon Dioxide Anion Gap BUN Creatinine Est GFR (CKD-EPI)AfAm Est GFR (CKD-EPI)NonAf POC Glucometer 157 Random Glucose Calcium Phosphorus Magnesium Ferritin Total Bilirubin AST ALT Alkaline Phosphatase Ammonia 134.80 H Troponin I B-Natriuretic Peptide 388.8 H Total Protein Albumin TSH Urine Color Urine Appearance Urine pH Ur Specific [place] Urine Protein Urine Glucose (UA) Urine Ketones Urine Blood Urine Nitrite Urine Bilirubin Urine Urobilinogen Ur Leukocyte Esterase Urine WBC (Auto) Urine RBC (Auto) Urine Casts (Auto) U Epithel Cells (Auto) Urine Bacteria (Auto) Urine Yeast (Auto) 03/10/19 03/11/19 03/11/19 22:51 00:41 06:45 WBC 4.5 RBC 2.96 L Hgb 8.7 L Hct 25.6 L MCV 86.6 MCH 29.6 MCHC 34.1 RDW 16.1 H Plt Count 64 L D MPV 9.1 Absolute Neuts (auto) Neutrophils % Lymphocytes % Monocytes % Eosinophils % Basophils % Nucleated RBC % Retic Count PT with INR INR PTT (Actin FS) Sodium Potassium Chloride Carbon Dioxide Anion Gap BUN Creatinine Est GFR (CKD-EPI)AfAm Est GFR (CKD-EPI)NonAf POC Glucometer 113 Random Glucose Calcium Phosphorus Magnesium Ferritin Total Bilirubin AST ALT Alkaline Phosphatase Ammonia Troponin I B-Natriuretic Peptide Total Protein Albumin TSH Urine Color Dk yellow Urine Appearance Cloudy Urine pH 5.5 Ur Specific [place] 1.028 Urine Protein 2+ H Urine Glucose (UA) Negative Urine Ketones Trace H Urine Blood 3+ H Urine Nitrite Negative Urine Bilirubin 1+ H Urine Urobilinogen 2.0 Ur Leukocyte Esterase Negative Urine WBC (Auto) 6 Urine RBC (Auto) 141 Urine Casts (Auto) 23 U Epithel Cells (Auto) 4.3 Urine Bacteria (Auto) 97.9 Urine Yeast (Auto) 3 03/11/19 03/11/19 03/11/19 06:45 06:45 06:45 WBC RBC Hgb Hct MCV MCH MCHC RDW Plt Count MPV Absolute Neuts (auto) Neutrophils % Lymphocytes % Monocytes % Eosinophils % Basophils % Nucleated RBC % Retic Count 2.40 H PT with INR INR PTT (Actin FS) Sodium 142 Potassium 3.4 L Chloride 108 H Carbon Dioxide 29 Anion Gap 5 L BUN 30 H Creatinine 1.0 Est GFR (CKD-EPI)AfAm 87.99 Est GFR (CKD-EPI)NonAf 75.92 POC Glucometer Random Glucose 148 H Calcium 8.5 Phosphorus 3.0 Magnesium 2.3 Ferritin Total Bilirubin AST ALT Alkaline Phosphatase Ammonia 56.90 H Troponin I B-Natriuretic Peptide Total Protein Albumin TSH 2.10 D Urine Color Urine Appearance Urine pH Ur Specific [place] Urine Protein Urine Glucose (UA) Urine Ketones Urine Blood Urine Nitrite Urine Bilirubin Urine Urobilinogen Ur Leukocyte Esterase Urine WBC (Auto) Urine RBC (Auto) Urine Casts (Auto) U Epithel Cells (Auto) Urine Bacteria (Auto) Urine Yeast (Auto) 03/11/19 03/11/19 06:45 06:55 WBC RBC Hgb Hct MCV MCH MCHC RDW Plt Count MPV Absolute Neuts (auto) Neutrophils % Lymphocytes % Monocytes % Eosinophils % Basophils % Nucleated RBC % Retic Count PT with INR INR PTT (Actin FS) Sodium Potassium Chloride Carbon Dioxide Anion Gap BUN Creatinine Est GFR (CKD-EPI)AfAm Est GFR (CKD-EPI)NonAf POC Glucometer 128 Random Glucose Calcium Phosphorus Magnesium Ferritin 32.4 Total Bilirubin AST ALT Alkaline Phosphatase Ammonia Troponin I B-Natriuretic Peptide Total Protein Albumin TSH Urine Color Urine Appearance Urine pH Ur Specific [place] Urine Protein Urine Glucose (UA) Urine Ketones Urine Blood Urine Nitrite Urine Bilirubin Urine Urobilinogen Ur Leukocyte Esterase Urine WBC (Auto) Urine RBC (Auto) Urine Casts (Auto) U Epithel Cells (Auto) Urine Bacteria (Auto) Urine Yeast (Auto) Active Medications Generic Name Dose Route Start Last Admin Trade Name Freq PRN Reason Stop Dose Admin Aspirin 81 mg 03/11/19 10:00 Asa - PO DAILY [facility] Donepezil HCl 5 mg 03/11/19 10:00 Aricept - PO DAILY [facility] Furosemide 20 mg 03/11/19 10:00 Lasix - PO DAILY [facility] Gabapentin 300 mg 03/11/19 10:00 Neurontin - PO DAILY [facility] Insulin Aspart 1 vial 03/10/19 22:00 03/11/19 06:56 Novolog Vial Sliding Scale - SQ Not Given ACHS [facility] Protocol Insulin Detemir 50 units 03/11/19 07:00 03/11/19 06:56 Levemir Vial SQ 50 units AM [facility]BEL Administration Lactulose 20 gm 03/10/19 19:45 03/11/19 03:51 Cephulac (Oral Use) PO 20 gm Q8H [facility]BEL Administration Nadolol 20 mg 03/11/19 10:00 Corgard - PO DAILY [facility] Rifaximin 550 mg 03/10/19 22:00 03/10/19 22:00 Xifaxan - PO 550 mg BID [facility] Administration Spironolactone 50 mg 03/11/19 10:00 Aldactone - PO DAILY [facility] ASSESSMENT/PLAN: 68 male with a past medical hx of asthma, DM, fatty liver, HCV, and cirrhosis who presents to the ED with a 1 day history of "abnormal behavior" and admitted for evaluation and treatment of altered mental status Acute Metabolic Encephalopathy, likely hepatic in nature - resolved -resolved -GI consult appreciated -Rifaximin 550 mg PO BID -Lactulose 20 mg PO Q8 -Continue nadolol -will verify and continue rest of appropriate home medications IDDM -BGMs ACHS -Insulin sliding scale -Levemir 50 units SQ AM Recent Weight loss -Tumor marker workup as per GI pending Normocytic anemia -iron studies and B12 studies pending FEN -none -monitor and replete -Na controlled diet DVT Prophylaxis -Early ambulation Disposition Med/Surg Visit type - Emergency Visit Emergency Visit: Yes ED Registration Date: 03/10/19 Care time: The patient presented to the Emergency Department on the above date and was hospitalized for further evaluation of their emergent condition. - New Patient This patient is new to me today: Yes Date on this admission: 03/11/19 - Critical Care Critical Care patient: No
[2019-03-11] MEDS ORDERED: SPIRONOLACTONE 25 MG TABLET (FP) PO SCH (10:00)
[2019-03-11] MEDS ORDERED: NADOLOL 20 MG TABLET (FP) PO SCH (10:00)
[2019-03-11] MEDS ORDERED: FUROSEMIDE 20 MG TABLET (FP) PO SCH (10:00)
[2019-03-11] MEDS: DONEPEZIL HCL 5 MG TABLET (FP) PO SCH (10:35)
[2019-03-11] MEDS: ASPIRIN 81 MG CHEWABLE TABLETS PO SCH (10:35)
[2019-03-11] MEDS: GABAPENTIN 300 MG CAPSULE (FP) PO SCH (10:35)
[2019-03-11] MEDS: RIFAXIMIN 550 MG TABLET (UD) PO SCH ×2 (10:35→21:18)
[2019-03-11] MEDS ORDERED: POTASSIUM CHLORIDE TABS 20 MEQ TABLET.ER (FP) PO ONE ×4 (11:05→20:30)
[2019-03-11] MEDS ORDERED: FUROSEMIDE 40 MG/4 ML INJECTABLE VIAL IVPUSH SCH (18:00)
[2019-03-11] MEDS ORDERED: INSULIN (NOVOLOG) ASPART 100 UNITS/ML 10ML VIAL ONE (20:39)
[2019-03-11 21:05] LABS: PH,URINE 5.5 (5.0-8.0); URINE APPEARANCE CLEAR; URINE BACTERIA 0.8 /hpf (NEGATIVE); URINE BILIRUBIN 1+ (NEGATIVE); URINE CASTS 11 /lpf (0-8); URINE COLOR DK YELLOW; URINE GLUCOSE (UA) NEGATIVE (NEGATIVE); URINE KETONE TRACE (NEGATIVE); URINE LEUK ESTERASE TRACE (NEGATIVE); URINE NITRITE NEGATIVE (NEGATIVE); URINE PROTEIN 2+ (NEGATIVE); URINE RBC 12 /hpf (0-4); URINE WBC 4 /hpf (0-5)
[2019-03-11] MEDS: ALBUMIN HUMAN 25% 12.5 GM/50 ML VIAL IVPB SCH (21:15)
[2019-03-11] MEDS: FLUTICASONE/SALMETEROL 100 MCG/50 MCG DISKUS IH SCH (21:17)
[2019-03-11] MEDS ORDERED: PATIENT'S OWN MEDICATION (NON-FORMULARY) (Fluticasone/Salmeterol [Advair Hfa 115-21 Mcg In PO SCH (22:00)
[2019-03-11] MEDS ORDERED: METOLAZONE 2.5 MG TABLET (FP) PO ONE (23:00)
[2019-03-11] MEDS: FUROSEMIDE 40 MG/4 ML INJECTABLE VIAL IVPUSH SCH (23:38)
[2019-03-12 04:11] LABS: SERUM IRON SATURATION 25 % (15-55); TOTAL IRON BINDING CAPACITY 258 ug/dL (250-450); UIBC 193 ug/dL (111-343)
[2019-03-12] MEDS: LACTULOSE 20 GM/30 ML UDC (FOR ORAL USE ONLY) PO SCH ×3 (06:38→21:34)
[2019-03-12] MEDS: INSULIN SLIDING SCALE (NOVOLOG) 1 VIAL SQ SCH ×4 (06:38→21:47)
[2019-03-12] MEDS: INSULIN (LEVEMIR) 100 UNITS/ML UNITS SQ SCH (06:39)
--- NOTE | 2019-03-12 07:21 | PN.GI ---
GI Progress Note Subjective: Patient complain of dark stools yesterday. Denies nausea, vomiting, abdominal pain, rectal bleeding. Noted drop in Hg from 10.1 to 8.7. Abdominal US shows echogenic liver compatible with liver cirrhosis, splenomegaly, CBD 10.5mm, and ascites in right upper abdomen. - Objective Vital Signs: Vital Signs Temperature 98.0 F 03/11/19 22:00 Pulse Rate 75 03/11/19 22:00 Respiratory Rate 03/11/19 22:00 Blood Pressure 139/69 03/11/19 22:00 O2 Sat by Pulse Oximetry (%) 98 03/11/19 22:00 Constitutional: No Distress, Calm Eyes: Yes: Conjunctiva Clear HENT: Yes: Atraumatic Cardiovascular: Yes: Regular Rate and Rhythm Respiratory: Yes: Regular, CTA Bilaterally Gastrointestinal Inspection: Yes: WNL. No: Ascites, Distention, Hernia, Scars, Other ...Auscultate: Yes: Normoactive Bowel Sounds. No: Hyperactive Bowel Sounds, Hypoactive Bowel Sounds, No Bowel Sounds, Other ...Palpate: Yes: Soft. No: Firm/Rigid, Guarding, Hepatomegaly, Mass, Pulsatile Mass, Splenomegaly, Tenderness, Tenderness, Epigastium, Tenderness, Rebound, Other ...Percussion: Yes: Tympanitic. No: Dullness, Fluid Wave, Other Edema: LLE: 2+, RLE: 2+ Neurological: Yes: Alert, Oriented Psychiatric: Yes: Alert, Oriented Labs: INR, PTT INR 1.22 (0.83-1.09) H 03/10/19 14:33 Active Medications Generic Name Dose Route Start Last Admin Trade Name Ritoq PRN Reason Stop Dose Admin Albumin Human 12.5 gm 03/11/19 22:00 03/11/19 21:15 Albumin Human 25% IVPB 03/13/19 10:01 12.5 gm BID REBEL Administration Aspirin 81 mg 03/11/19 10:00 03/11/19 10:35 Asa - PO 81 mg DAILY REBEL Administration Donepezil HCl 5 mg 03/11/19 10:00 03/11/19 10:35 Aricept - PO 5 mg DAILY [facility] Administration Furosemide 40 mg 03/11/19 23:15 03/11/19 23:38 Lasix Injection - IVPUSH 40 mg DAILY [facility]BEL Administration Gabapentin 300 mg 03/11/19 10:00 03/11/19 10:35 Neurontin - PO 300 mg DAILY [facility] Administration Insulin Aspart 1 vial 03/10/19 22:00 03/12/19 06:38 Novolog Vial Sliding Scale - SQ Not Given ACHS [facility] Protocol Insulin Detemir 50 units 03/11/19 07:00 03/12/19 06:39 Levemir Vial SQ 50 units AM [facility]BEL Administration Lactulose 20 gm 03/10/19 19:45 03/12/19 06:38 Cephulac (Oral Use) PO 20 gm Q8H REBEL Administration Pantoprazole Sodium 40 mg 03/12/19 10:00 Protonix - PO DAILY [facility] Rifaximin 550 mg 03/10/19 22:00 03/11/19 21:18 Xifaxan - PO 550 mg BID REBEL Administration Fluticasone/Salmeterol 1 puff 03/11/19 22:00 03/11/19 21:17 Advair 100mcg/50mcg - IH 1 puff BID [facility]BEL Administration Spironolactone 100 mg 03/12/19 10:00 Aldactone - PO DAILY REBEL - ....Imaging Ultrasound: Report Reviewed Problem List - Problems (1) Hepatic encephalopathy Assessment/Plan: -Xifaxin 550mg BID -ammonia 56.9 Code(s): K72.90 - HEPATIC FAILURE, UNSPECIFIED WITHOUT COMA (2) Cirrhosis Assessment/Plan: -continue Nadolol and Lactulose -Abdominal US reviewed Code(s): K74.60 - UNSPECIFIED CIRRHOSIS OF LIVER Qualifiers: Hepatic cirrhosis type: unspecified hepatic cirrhosis Ascites presence: with ascites Qualified Code(s): K74.60 - Unspecified cirrhosis of liver; R18.8 - Other ascites (3) Hepatitis C Assessment/Plan: -Hep C quant Code(s): B19.20 - UNSPECIFIED VIRAL HEPATITIS C WITHOUT HEPATIC COMA Qualifiers: Viral hepatitis chronicity: chronic Hepatic coma status: without hepatic coma Qualified Code(s): B18.2 - Chronic viral hepatitis C (4) Unintentional weight loss Assessment/Plan: -AFP 1.9 -CEA, CA 19-9, PSA Code(s): R63.4 - ABNORMAL WEIGHT LOSS
--- NOTE | 2019-03-12 07:38 | PN ---
Physical Exam: SUBJECTIVE: Patient seen and examined this AM. He states he is feeling very well and asking when he will be able to return home. OBJECTIVE: Vital Signs Period Temp Pulse Resp BP Sys/Shen Pulse Ox Last 24 Hr 98.0 F-98.9 F 66-75 19-21 129-139/57-72 98 GEN: A&O X 3, no acute distress HEENT: No scleral icterus, PERRL, no conjunctival pallow HEART: RRR, no murmurs noted LUNGS: CTA b/l, no wheezes or crackles noted ABDOMEN: Soft, obese, nontender to palpation, normoactive bowel sounds EXTREMITIES: 1+ pitting edema in b/l LE, no calf tenderness NEURO: CN II-XII grossly in tact, no gross deficits Laboratory Results - last 24 hr 03/11/19 03/11/19 03/11/19 06:45 06:45 06:45 WBC 4.5 RBC 2.96 L Hgb 8.7 L Hct 25.6 L MCV 86.6 MCH 29.6 MCHC 34.1 RDW 16.1 H Plt Count 64 L D MPV 9.1 Retic Count Sodium 142 Potassium 3.4 L Chloride 108 H Carbon Dioxide 29 Anion Gap 5 L BUN 30 H Creatinine 1.0 Est GFR (CKD-EPI)AfAm 87.99 Est GFR (CKD-EPI)NonAf 75.92 POC Glucometer Random Glucose 148 H Calcium 8.5 Phosphorus 3.0 Magnesium 2.3 Iron TIBC Iron Saturation Ferritin Total Bilirubin Direct Bilirubin AST ALT Alkaline Phosphatase Ammonia 56.90 H Total Protein Albumin Tumor Marker AFP TSH 2.10 D Urine Color Urine Appearance Urine pH Ur Specific [place] Urine Protein Urine Glucose (UA) Urine Ketones Urine Blood Urine Nitrite Urine Bilirubin Urine Urobilinogen Ur Leukocyte Esterase Urine WBC (Auto) Urine RBC (Auto) Urine Casts (Auto) U Epithel Cells (Auto) Urine Bacteria (Auto) 03/11/19 03/11/19 03/11/19 06:45 06:45 06:45 WBC RBC Hgb Hct MCV MCH MCHC RDW Plt Count MPV Retic Count 2.40 H Sodium Potassium Chloride Carbon Dioxide Anion Gap BUN Creatinine Est GFR (CKD-EPI)AfAm Est GFR (CKD-EPI)NonAf POC Glucometer Random Glucose Calcium Phosphorus Magnesium Iron 65 TIBC 258 Iron Saturation 25 Ferritin 32.4 Total Bilirubin 2.5 H Direct Bilirubin 0.8 H AST 64 H ALT 35 Alkaline Phosphatase 82 Ammonia Total Protein 5.8 L Albumin 2.0 L Tumor Marker AFP TSH Urine Color Urine Appearance Urine pH Ur Specific [place] Urine Protein Urine Glucose (UA) Urine Ketones Urine Blood Urine Nitrite Urine Bilirubin Urine Urobilinogen Ur Leukocyte Esterase Urine WBC (Auto) Urine RBC (Auto) Urine Casts (Auto) U Epithel Cells (Auto) Urine Bacteria (Auto) 03/11/19 03/11/19 03/11/19 06:45 11:23 14:45 WBC RBC Hgb Hct MCV MCH MCHC RDW Plt Count MPV Retic Count Sodium Potassium Chloride Carbon Dioxide Anion Gap BUN Creatinine Est GFR (CKD-EPI)AfAm Est GFR (CKD-EPI)NonAf POC Glucometer 180 Random Glucose Calcium Phosphorus Magnesium Iron TIBC Iron Saturation Ferritin Total Bilirubin Direct Bilirubin AST ALT Alkaline Phosphatase Ammonia Total Protein Albumin Tumor Marker AFP 1.9 TSH Urine Color Dk yellow Urine Appearance Clear Urine pH 5.5 Ur Specific [place] 1.022 Urine Protein 2+ H Urine Glucose (UA) Negative Urine Ketones Trace H Urine Blood 3+ H Urine Nitrite Negative Urine Bilirubin 1+ H Urine Urobilinogen 1.0 Ur Leukocyte Esterase Trace Urine WBC (Auto) 4 Urine RBC (Auto) 12 Urine Casts (Auto) 11 U Epithel Cells (Auto) 1.0 Urine Bacteria (Auto) 0.8 03/11/19 03/11/19 03/12/19 16:41 20:54 05:46 WBC RBC Hgb Hct MCV MCH MCHC RDW Plt Count MPV Retic Count Sodium Potassium Chloride Carbon Dioxide Anion Gap BUN Creatinine Est GFR (CKD-EPI)AfAm Est GFR (CKD-EPI)NonAf POC Glucometer 82 166 115 Random Glucose Calcium Phosphorus Magnesium Iron TIBC Iron Saturation Ferritin Total Bilirubin Direct Bilirubin AST ALT Alkaline Phosphatase Ammonia Total Protein Albumin Tumor Marker AFP TSH Urine Color Urine Appearance Urine pH Ur Specific [place] Urine Protein Urine Glucose (UA) Urine Ketones Urine Blood Urine Nitrite Urine Bilirubin Urine Urobilinogen Ur Leukocyte Esterase Urine WBC (Auto) Urine RBC (Auto) Urine Casts (Auto) U Epithel Cells (Auto) Urine Bacteria (Auto) Active Medications Generic Name Dose Route Start Last Admin Trade Name Freq PRN Reason Stop Dose Admin Albumin Human 12.5 gm 03/11/19 22:00 03/11/19 21:15 Albumin Human 25% IVPB 03/13/19 10:01 12.5 gm BID REBEL Administration Aspirin 81 mg 03/11/19 10:00 03/11/19 10:35 Asa - PO 81 mg DAILY REBEL Administration Donepezil HCl 5 mg 03/11/19 10:00 03/11/19 10:35 Aricept - PO 5 mg DAILY REBEL Administration Furosemide 40 mg 03/11/19 23:15 03/11/19 23:38 Lasix Injection - IVPUSH 40 mg DAILY REBEL Administration Gabapentin 300 mg 03/11/19 10:00 03/11/19 10:35 Neurontin - PO 300 mg DAILY REBEL Administration Insulin Aspart 1 vial 03/10/19 22:00 03/12/19 06:38 Novolog Vial Sliding Scale - SQ Not Given [facility] Protocol Insulin Detemir 50 units 03/11/19 07:00 03/12/19 06:39 Levemir Vial SQ 50 units AM REBEL Administration Lactulose 20 gm 03/10/19 19:45 03/12/19 06:38 Cephulac (Oral Use) PO 20 gm Q8H REBEL Administration Pantoprazole Sodium 40 mg 03/12/19 10:00 Protonix - PO DAILY REBEL Rifaximin 550 mg 03/10/19 22:00 03/11/19 21:18 Xifaxan - PO 550 mg BID REBEL Administration Fluticasone/Salmeterol 1 puff 03/11/19 22:00 03/11/19 21:17 Advair 100mcg/50mcg - IH 1 puff BID REBEL Administration Spironolactone 100 mg 03/12/19 10:00 Aldactone - PO DAILY REBEL ASSESSMENT/PLAN: 68 male with a past medical hx of asthma, DM, fatty liver, HCV, and cirrhosis who presents to the ED with a 1 day history of "abnormal behavior" and admitted for evaluation and treatment of altered mental status Acute Metabolic Encephalopathy, likely hepatic in nature - resolved -resolved -GI consult appreciated -Rifaximin 550 mg PO BID -Lactulose 20 mg PO Q8 -Continue nadolol 40 mg Daily -Lasix increased to 40 mg IV Daily per GI -Spironolactone 100 mg PO Daily IDDM -BGMs ACHS -Insulin sliding scale -Levemir 50 units SQ AM Recent Weight loss -Tumor marker workup as per GI pending Normocytic anemia -iron studies and B12 studies pending FEN -none -monitor and replete -Na controlled diet DVT Prophylaxis -Early ambulation Disposition Med/Surg Visit type - Emergency Visit Emergency Visit: Yes ED Registration Date: 03/10/19 Care time: The patient presented to the Emergency Department on the above date and was hospitalized for further evaluation of their emergent condition. - New Patient This patient is new to me today: No - Critical Care Critical Care patient: No
[2019-03-12 07:44] LABS: HEMATOCRIT 23.4 % (35.4-49); MCH 29.8 pg (25.7-33.7); MCHC 34.3 g/dl (32.0-35.9); MEAN CELL VOLUME 86.7 fl (80-96); MEAN PLT VOLUME 8.9 fl (7.5-11.1); PLATELET COUNT 59 K/MM3 (134-434); RDW 16.6 % (11.9-15.9); WHITE BLOOD COUNT 4.4 K/mm3 (4.0-10.0)
[2019-03-12 08:06] LABS: ALBUMIN 2.1 g/dl (3.4-5.0); BILIRUBIN,DIRECT 0.6 mg/dL (0.0-0.2); BILIRUBIN,TOTAL 2.1 mg/dL (0.2-1); CALCIUM 8.1 mg/dL (8.5-10.1); MAGNESIUM 2.1 mg/dL (1.8-2.4); PHOSPHOROUS 2.8 mg/dL (2.5-4.9); POTASSIUM 3.8 mmol/L (3.5-5.1); TOT PROT 5.6 g/dl (6.4-8.2)
[2019-03-12] MEDS ORDERED: PT OWN MED DRAWER 7, Y5N ONE ×2 (09:29→21:39)
[2019-03-12] MEDS: RIFAXIMIN 550 MG TABLET (UD) PO SCH ×2 (09:33→21:34)
[2019-03-12] MEDS: DONEPEZIL HCL 5 MG TABLET (FP) PO SCH (09:33)
[2019-03-12] MEDS: PANTOPRAZOLE 40 MG TABLET (FP) PO SCH (09:33)
[2019-03-12] MEDS: FUROSEMIDE 40 MG/4 ML INJECTABLE VIAL IVPUSH SCH (09:33)
[2019-03-12] MEDS: SPIRONOLACTONE 25 MG TABLET (FP) PO SCH (09:33)
[2019-03-12] MEDS: ASPIRIN 81 MG CHEWABLE TABLETS PO SCH (09:33)
[2019-03-12] MEDS: GABAPENTIN 300 MG CAPSULE (FP) PO SCH (09:34)
[2019-03-12] MEDS: ALBUMIN HUMAN 25% 12.5 GM/50 ML VIAL IVPB SCH ×2 (09:34→22:41)
[2019-03-12] MEDS: FLUTICASONE/SALMETEROL 100 MCG/50 MCG DISKUS IH SCH ×2 (09:39→21:42)
[2019-03-12] MEDS ORDERED: FUROSEMIDE 40 MG TABLET (FP) PO SCH (10:00)
[2019-03-12] MEDS ORDERED: INSULIN (NOVOLOG) ASPART 100 UNITS/ML 10ML VIAL ONE ×2 (11:36→21:38)
--- NOTE | 2019-03-12 15:01 | PN ---
Teaching Attending Note Name of Resident: Bossman Starr ATTENDING PHYSICIAN STATEMENT I saw and evaluated the patient. I reviewed the resident's note and discussed the case with the resident. I agree with the resident's findings and plan as documented. SUBJECTIVE: Patient is feeling better with no acute distress, no shortness of breath but positive for swelling of LEs. patient is back to his baseline mentally. OBJECTIVE: Vital Signs Temperature 98.4 F 03/12/19 13:50 Pulse Rate 78 03/12/19 13:50 Respiratory Rate 20 03/12/19 13:50 Blood Pressure 136/65 03/12/19 13:50 O2 Sat by Pulse Oximetry (%) 98 03/12/19 09:00 GENERAL: The patient is awake, alert, and fully oriented, in no acute distress. HEAD: Normal with no signs of trauma. EYES: PERRL, extraocular movements intact, sclera anicteric, conjunctiva clear. ENT: Ears normal, oropharynx clear without exudates, moist mucous membranes. NECK: Trachea midline, full range of motion, supple. LUNGS: Breath sounds equal, clear to auscultation bilaterally, no wheezes, no crackles, no accessory muscle use. HEART: Regular rate and rhythm, S1, S2 without murmur, rub or gallop. ABDOMEN: Soft, nontender, distended abdomen. normoactive bowel sounds, no guarding, no rebound, positive hepatomegaly, no masses. EXTREMITIES: 2+ pulses, warm, well-perfused, 2 plus edema NEUROLOGICAL: Cranial nerves II through XII grossly intact. Normal speech, gait not observed. PSYCH: Normal mood, normal affect. SKIN: Warm, dry, normal turgor, no rashes or lesions noted CBCD WBC 4.4 K/mm3 (4.0-10.0) 03/12/19 06:05 RBC 2.70 M/mm3 (4.00-5.60) L 03/12/19 06:05 Hgb 8.0 GM/dL (11.7-16.9) L 03/12/19 06:05 Hct 23.4 % (35.4-49) L 03/12/19 06:05 MCV 86.7 fl (80-96) 03/12/19 06:05 MCHC 34.3 g/dl (32.0-35.9) 03/12/19 06:05 RDW 16.6 % (11.9-15.9) H 03/12/19 06:05 Plt Count 59 K/MM3 (134-434) L 03/12/19 06:05 MPV 8.9 fl (7.5-11.1) 03/12/19 06:05 CMP Sodium 143 mmol/L (136-145) 03/12/19 06:05 Potassium 3.8 mmol/L (3.5-5.1) 03/12/19 06:05 Chloride 109 mmol/L (98-107) H 03/12/19 06:05 Carbon Dioxide 29 mmol/L (21-32) 03/12/19 06:05 Anion Gap 5 MMOL/L (8-16) L 03/12/19 06:05 BUN 28 mg/dL (7-18) H 03/12/19 06:05 Creatinine 1.0 mg/dL (0.55-1.3) 03/12/19 06:05 Random Glucose 111 mg/dL (74-106) H 03/12/19 06:05 Calcium 8.1 mg/dL (8.5-10.1) L 03/12/19 06:05 Total Bilirubin 2.1 mg/dL (0.2-1) H 03/12/19 06:05 AST 62 U/L (15-37) H 03/12/19 06:05 ALT 34 U/L (13-61) 03/12/19 06:05 Alkaline Phosphatase 80 U/L (45-117) 03/12/19 06:05 Total Protein 5.6 g/dl (6.4-8.2) L 03/12/19 06:05 Albumin 2.1 g/dl (3.4-5.0) L 03/12/19 06:05 CARDIAC ENZYMES Troponin I < 0.02 ng/ml (0.00-0.05) 03/10/19 14:43 Current Medications Generic Name Dose Route Start Last Admin Trade Name Freq PRN Reason Stop Dose Admin Albumin Human 12.5 gm 03/11/19 22:00 03/12/19 09:34 Albumin Human 25% IVPB 03/13/19 10:01 12.5 gm BID REBEL Administration Aspirin 81 mg 03/11/19 10:00 03/12/19 09:33 Asa - PO 81 mg DAILY REBEL Administration Donepezil HCl 5 mg 03/11/19 10:00 03/12/19 09:33 Aricept - PO 5 mg DAILY REBEL Administration Furosemide 40 mg 03/11/19 23:15 03/12/19 09:33 Lasix Injection - IVPUSH 40 mg DAILY REBEL Administration Gabapentin 300 mg 03/11/19 10:00 03/12/19 09:34 Neurontin - PO 300 mg DAILY REBEL Administration Insulin Aspart 1 vial 03/10/19 22:00 03/12/19 11:39 Novolog Vial Sliding Scale - SQ 2 units ACHS REBEL Administration Protocol Insulin Detemir 50 units 03/11/19 07:00 03/12/19 06:39 Levemir Vial SQ 50 units AM REBEL Administration Lactulose 20 gm 03/10/19 19:45 03/12/19 13:31 Cephulac (Oral Use) PO 20 gm Q8H REBEL Administration Pantoprazole Sodium 40 mg 03/12/19 10:00 03/12/19 09:33 Protonix - PO 40 mg DAILY REBEL Administration Rifaximin 550 mg 03/10/19 22:00 03/12/19 09:33 Xifaxan - PO 550 mg BID REBEL Administration Fluticasone/Salmeterol 1 puff 03/11/19 22:00 03/12/19 09:39 Advair 100mcg/50mcg - IH 1 puff BID REBEL Administration Spironolactone 100 mg 03/12/19 10:00 03/12/19 09:33 Aldactone - PO 100 mg DAILY REBEL Administration Home Medications Medication Instructions Recorded Gabapentin 300 mg PO DAILY 11/26/18 Glipizide [Glipizide ER] 10 mg PO BID 11/26/18 Sitagliptin Phosphate [Januvia] 50 mg PO DAILY 11/26/18 Pantoprazole Sodium [Protonix -] 40 mg PO DAILY #30 tablet.ec 11/30/18 Insulin Degludec [Tresiba 50 units SQ DAILY 02/08/19 Flextouch U-100] Aspirin [ASA -] 81 mg PO DAILY #30 tab.chew 02/09/19 Lactulose 20 gm PO Q8H #2700 ml 02/09/19 Nadolol [Corgard -] 40 mg PO DAILY 02/09/19 Fluticasone/Salmeterol [Advair Hfa 1 puff PO BID 03/11/19 115-21 Mcg Inhaler] Furosemide [Lasix] 40 mg PO DAILY 03/11/19 Spironolactone 100 mg PO DAILY 03/11/19 ASSESSMENT AND PLAN: Patient is 68 male with a past medical hx of asthma, DM, fatty liver, HCV, and cirrhosis who presents to the ED with a 1 day history of acute change of mental status, presented with abnormal behavior and is admitted for further evaluation and treatment. # Acute change of Mental Status due to metabolic encephalopathy; improved. with ammonia level of 8 today resolved prior to admitting team evaluation. will continue lactulose 20mg PO TID, continue rifaximin 550 mg PO BID, increased lasix to 40mg and spironolactone 100mg daily. # Elevated ammonia improved mentation, continue Lactulose, GI Dr. Fish appreciated , continue nadolol/spironolactone and lasix, monitor daily weight and swelling of lower extremities. # Liver Cirrhosis continue current meds. # Hx of hepatitis C #T2DM: started on levemir 50U in AM (patient on tresiba at home, 1:1 conversion ), with insulin sliding scale coverage #Normocytic Anemia: stable DVT Prophylaxis: SCDs
[2019-03-13 04:10] LABS: CARCINOEMBRYONIC ANTIGEN 3.4 ng/mL (0.0-4.7)
[2019-03-13] MEDS: LACTULOSE 20 GM/30 ML UDC (FOR ORAL USE ONLY) PO SCH ×3 (04:48→19:41)
[2019-03-13] MEDS ORDERED: PT OWN MED DRAWER 7, Y5N ONE ×2 (05:37→22:44)
[2019-03-13] MEDS: INSULIN SLIDING SCALE (NOVOLOG) 1 VIAL SQ SCH ×4 (06:21→22:37)
[2019-03-13] MEDS: INSULIN (LEVEMIR) 100 UNITS/ML UNITS SQ SCH (06:22)
[2019-03-13] MEDS ORDERED: INSULIN (NOVOLOG) ASPART 100 UNITS/ML 10ML VIAL ONE ×3 (06:55→22:12)
--- NOTE | 2019-03-13 08:21 | PN ---
Progress Note (short form) - Note Progress Note: Patient is feeling better with no acute distress. Lower extremities are swollen. Vital Signs Temperature 98.9 F 03/13/19 05:00 Pulse Rate 92 H 03/13/19 05:00 Respiratory Rate 20 03/12/19 22:00 Blood Pressure 129/59 L 03/13/19 05:00 O2 Sat by Pulse Oximetry (%) 97 03/12/19 22:00 GENERAL: The patient is awake, alert, and fully oriented, in no acute distress. HEAD: Normal with no signs of trauma. EYES: PERRL, extraocular movements intact, sclera anicteric, conjunctiva clear. ENT: Ears normal, oropharynx clear without exudates, moist mucous membranes. NECK: Trachea midline, full range of motion, supple. LUNGS: Breath sounds equal, clear to auscultation bilaterally, no wheezes, no crackles, no accessory muscle use. HEART: Regular rate and rhythm, S1, S2 without murmur, rub or gallop. ABDOMEN: Soft, nontender, distended abdomen. normoactive bowel sounds, no guarding, no rebound, positive hepatomegaly, no masses. EXTREMITIES: 2+ pulses, warm, well-perfused, 2 plus edema NEUROLOGICAL: Cranial nerves II through XII grossly intact. Normal speech, gait not observed. PSYCH: Normal mood, normal affect. SKIN: Warm, dry, normal turgor, no rashes or lesions noted CBCD WBC 4.4 K/mm3 (4.0-10.0) 03/12/19 06:05 RBC 2.70 M/mm3 (4.00-5.60) L 03/12/19 06:05 Hgb 8.0 GM/dL (11.7-16.9) L 03/12/19 06:05 Hct 23.4 % (35.4-49) L 03/12/19 06:05 MCV 86.7 fl (80-96) 03/12/19 06:05 MCHC 34.3 g/dl (32.0-35.9) 03/12/19 06:05 RDW 16.6 % (11.9-15.9) H 03/12/19 06:05 Plt Count 59 K/MM3 (134-434) L 03/12/19 06:05 MPV 8.9 fl (7.5-11.1) 03/12/19 06:05 CMP Sodium 143 mmol/L (136-145) 03/12/19 06:05 Potassium 3.8 mmol/L (3.5-5.1) 03/12/19 06:05 Chloride 109 mmol/L (98-107) H 03/12/19 06:05 Carbon Dioxide 29 mmol/L (21-32) 03/12/19 06:05 Anion Gap 5 MMOL/L (8-16) L 03/12/19 06:05 BUN 28 mg/dL (7-18) H 03/12/19 06:05 Creatinine 1.0 mg/dL (0.55-1.3) 03/12/19 06:05 Random Glucose 111 mg/dL (74-106) H 03/12/19 06:05 Calcium 8.1 mg/dL (8.5-10.1) L 03/12/19 06:05 Total Bilirubin 2.1 mg/dL (0.2-1) H 03/12/19 06:05 AST 62 U/L (15-37) H 03/12/19 06:05 ALT 34 U/L (13-61) 03/12/19 06:05 Alkaline Phosphatase 80 U/L (45-117) 03/12/19 06:05 Total Protein 5.6 g/dl (6.4-8.2) L 03/12/19 06:05 Albumin 2.1 g/dl (3.4-5.0) L 03/12/19 06:05 CARDIAC ENZYMES Troponin I < 0.02 ng/ml (0.00-0.05) 03/10/19 14:43 Current Medications Generic Name Dose Route Start Last Admin Trade Name Freq PRN Reason Stop Dose Admin Albumin Human 12.5 gm 03/11/19 22:00 03/12/19 22:41 Albumin Human 25% IVPB 03/13/19 10:01 12.5 gm BID REBEL Administration Aspirin 81 mg 03/11/19 10:00 03/12/19 09:33 Asa - PO 81 mg DAILY REBEL Administration Donepezil HCl 5 mg 03/11/19 10:00 03/12/19 09:33 Aricept - PO 5 mg DAILY REBEL Administration Furosemide 40 mg 03/11/19 23:15 03/12/19 09:33 Lasix Injection - IVPUSH 40 mg DAILY REBEL Administration Gabapentin 300 mg 03/11/19 10:00 03/12/19 09:34 Neurontin - PO 300 mg DAILY REBEL Administration Insulin Aspart 1 vial 03/10/19 22:00 03/13/19 06:21 Novolog Vial Sliding Scale - SQ 2 units ACHS REBEL Administration Protocol Insulin Detemir 50 units 03/11/19 07:00 03/13/19 06:22 Levemir Vial SQ 50 units AM REBEL Administration Lactulose 20 gm 03/10/19 19:45 03/13/19 04:48 Cephulac (Oral Use) PO 20 gm Q8H REBEL Administration Pantoprazole Sodium 40 mg 03/12/19 10:00 03/12/19 09:33 Protonix - PO 40 mg DAILY REBEL Administration Rifaximin 550 mg 03/10/19 22:00 03/12/19 21:34 Xifaxan - PO 550 mg BID REBEL Administration Fluticasone/Salmeterol 1 puff 03/11/19 22:00 03/12/19 21:42 Advair 100mcg/50mcg - IH 1 puff BID REBEL Administration Spironolactone 100 mg 03/12/19 10:00 03/12/19 09:33 Aldactone - PO 100 mg DAILY REBEL Administration Home Medications Medication Instructions Recorded Gabapentin 300 mg PO DAILY 11/26/18 Glipizide [Glipizide ER] 10 mg PO BID 11/26/18 Sitagliptin Phosphate [Januvia] 50 mg PO DAILY 11/26/18 Pantoprazole Sodium [Protonix -] 40 mg PO DAILY #30 tablet.ec 11/30/18 Insulin Degludec [Tresiba 50 units SQ DAILY 02/08/19 Flextouch U-100] Aspirin [ASA -] 81 mg PO DAILY #30 tab.chew 02/09/19 Lactulose 20 gm PO Q8H #2700 ml 02/09/19 Nadolol [Corgard -] 40 mg PO DAILY 02/09/19 Fluticasone/Salmeterol [Advair Hfa 1 puff PO BID 03/11/19 115-21 Mcg Inhaler] Furosemide [Lasix] 40 mg PO DAILY 03/11/19 Spironolactone 100 mg PO DAILY 03/11/19 Laboratory Tests 03/11/19 03/11/19 03/11/19 06:45 06:45 06:45 Iron 65 TIBC 258 Iron Saturation 25 Ammonia 56.90 H Albumin Tumor Marker AFP 1.9 Carcinoembryonic Ag CA 19-9 Antigen Prostate Specific Ag HCV Quantitation 03/12/19 03/12/19 06:05 06:05 Iron TIBC Iron Saturation Ammonia Albumin 2.1 L Tumor Marker AFP Carcinoembryonic Ag 3.4 CA 19-9 Antigen 30 Prostate Specific Ag 0.80 HCV Quantitation Pending Assessment and plan: Patient is 68 male with a past medical hx of asthma, DM, fatty liver, HCV, and cirrhosis who presents to the ED with a 1 day history of acute change of mental status, presented with abnormal behavior and is admitted for further evaluation and treatment. # Acute change of Mental Status due to metabolic encephalopathy improved. with ammonia level of 8 today resolved prior to admitting team evaluation. will continue lactulose 20mg PO TID, continue rifaximin 550 mg PO BID, increased lasix to 40mg IV and spironolactone 100mg daily. # Elevated ammonia improved mentation, continue Lactulose, GI Dr. Fish appreciated , continue nadolol/spironolactone and lasix, monitor daily weight and swelling of lower extremities. # Hypoalbunuminia : s/p albumin infusion. # Liver Cirrhosis continue current meds. Markers are negative # Hx of hepatitis C : HCV quantitation is pending #T2DM: started on levemir 50U in AM (patient on tresiba at home, 1:1 conversion ), with insulin sliding scale coverage #Normocytic Anemia: stable DVT Prophylaxis: SCDs possible dc in am Visit type - Emergency Visit Emergency Visit: Yes ED Registration Date: 03/10/19 Care time: The patient presented to the Emergency Department on the above date and was hospitalized for further evaluation of their emergent condition. - New Patient This patient is new to me today: No - Critical Care Critical Care patient: No - Discharge Referral Referred to [facility] Med P.C.: No
[2019-03-13] MEDS: FLUTICASONE/SALMETEROL 100 MCG/50 MCG DISKUS IH SCH ×2 (10:13→22:41)
[2019-03-13] MEDS: ALBUMIN HUMAN 25% 12.5 GM/50 ML VIAL IVPB SCH (10:14)
[2019-03-13] MEDS: PANTOPRAZOLE 40 MG TABLET (FP) PO SCH (10:15)
[2019-03-13] MEDS: RIFAXIMIN 550 MG TABLET (UD) PO SCH ×2 (10:15→22:37)
[2019-03-13] MEDS: SPIRONOLACTONE 25 MG TABLET (FP) PO SCH (10:16)
[2019-03-13] MEDS: ASPIRIN 81 MG CHEWABLE TABLETS PO SCH (10:16)
[2019-03-13] MEDS: DONEPEZIL HCL 5 MG TABLET (FP) PO SCH (10:16)
[2019-03-13] MEDS: GABAPENTIN 300 MG CAPSULE (FP) PO SCH (10:17)
[2019-03-13] MEDS: FUROSEMIDE 40 MG/4 ML INJECTABLE VIAL IVPUSH SCH (10:17)
[2019-03-14] MEDS: LACTULOSE 20 GM/30 ML UDC (FOR ORAL USE ONLY) PO SCH ×2 (03:42→11:23)
[2019-03-14 05:50] VITALS: TEMP 98.6
[2019-03-14] MEDS: INSULIN SLIDING SCALE (NOVOLOG) 1 VIAL SQ SCH ×2 (06:23→11:23)
[2019-03-14] MEDS: INSULIN (LEVEMIR) 100 UNITS/ML UNITS SQ SCH (06:23)
[2019-03-14 08:38] VITALS: BP 140/70; PULSE 102
[2019-03-14] MEDS: SPIRONOLACTONE 25 MG TABLET (FP) PO SCH (09:29)
[2019-03-14] MEDS: GABAPENTIN 300 MG CAPSULE (FP) PO SCH (09:30)
[2019-03-14] MEDS: RIFAXIMIN 550 MG TABLET (UD) PO SCH (09:30)
[2019-03-14] MEDS: PANTOPRAZOLE 40 MG TABLET (FP) PO SCH (09:30)
[2019-03-14] MEDS: FLUTICASONE/SALMETEROL 100 MCG/50 MCG DISKUS IH SCH (09:31)
[2019-03-14] MEDS: ASPIRIN 81 MG CHEWABLE TABLETS PO SCH (09:31)
[2019-03-14] MEDS: FUROSEMIDE 40 MG/4 ML INJECTABLE VIAL IVPUSH SCH (09:31)
[2019-03-14] MEDS: DONEPEZIL HCL 5 MG TABLET (FP) PO SCH (09:31)
[2019-03-14] MEDS ORDERED: FUROSEMIDE 40 MG TABLET (FP) PO SCH (10:00)
--- NOTE | 2019-03-14 10:33 | PN ---
Physical Exam: SUBJECTIVE: Patient seen and examined lying comfortably in bed states his abdomen girth is decreasing. States its almost at base line. States swelling in leg is getting better. OBJECTIVE: Vital Signs Period Temp Pulse Resp BP Sys/Shen Pulse Ox Last 24 Hr 98.0 F-98.6 F 64-102 20-20 131-140/50-70 97 GENERAL: The patient is awake, alert, and fully oriented, in no acute distress. HEAD: Normal with no signs of trauma. ENT: moist mucous membranes. NECK: Trachea midline, full range of motion, supple. LUNGS: Breath sounds equal, clear to auscultation bilaterally, no wheezes, no crackles, no accessory muscle use. HEART: Regular rate and rhythm, S1, S2 without murmur, rub or gallop. ABDOMEN: Soft, nontender, distended, normoactive bowel sounds, no guarding, no rebound, EXTREMITIES: 2+ pulses, warm, well-perfused, edema +++ NEUROLOGICAL: Cranial nerves II through XII grossly intact. PSYCH: Normal mood, normal affect. SKIN: Warm, dry, Laboratory Results - last 24 hr 03/13/19 03/13/19 03/13/19 11:35 17:01 21:25 POC Glucometer 275 296 298 03/14/19 05:51 POC Glucometer 148 Active Medications Generic Name Dose Route Start Last Admin Trade Name Freq PRN Reason Stop Dose Admin Donepezil HCl 5 mg 03/11/19 10:00 03/14/19 09:31 Aricept - PO 5 mg DAILY REBEL Administration Furosemide 40 mg 03/14/19 10:00 Lasix - PO DAILY REBEL Gabapentin 300 mg 03/11/19 10:00 03/14/19 09:30 Neurontin - PO 300 mg DAILY REBEL Administration Insulin Aspart 1 vial 03/10/19 22:00 03/14/19 06:23 Novolog Vial Sliding Scale - SQ Not Given ACHS [facility] Protocol Insulin Detemir 50 units 03/11/19 07:00 03/14/19 06:23 Levemir Vial SQ 50 units AM REBEL Administration Lactulose 20 gm 03/10/19 19:45 03/14/19 03:42 Cephulac (Oral Use) PO 20 gm Q8H REBEL Administration Pantoprazole Sodium 40 mg 03/12/19 10:00 03/14/19 09:30 Protonix - PO 40 mg DAILY REBEL Administration Rifaximin 550 mg 03/10/19 22:00 03/14/19 09:30 Xifaxan - PO 550 mg BID REBEL Administration Fluticasone/Salmeterol 1 puff 03/11/19 22:00 03/14/19 09:31 Advair 100mcg/50mcg - IH 1 puff BID REBEL Administration Spironolactone 100 mg 03/12/19 10:00 03/14/19 09:29 Aldactone - PO 100 mg DAILY REBEL Administration ASSESSMENT/PLAN: Patient is 68 male with a past medical hx of asthma, DM, fatty liver, HCV, and cirrhosis who presents to the ED with a 1 day history of acute change of mental status, presented with abnormal behavior and is admitted for further evaluation and treatment. # Acute change of Mental Status due to hepatic encephalopathy improved. ammonia level of 8 today will continue lactulose 20mg PO TID, continue rifaximin 550 mg PO BID, on lasix to 40mg IV on spironolactone 100mg daily. monitor serum electrolytes and creatnine Dr daly on case continue nadolol daily weight 205 pound abdominal girth charting # Hypoalbunuminia : s/p albumin infusion. # Liver Cirrhosis likely because of hep c continue current meds. Markers are negative hcv quantitative pending # B/l pitting edema likely because of hypoalbunemia limb elevation protein diet #T2DM: on levemir 50U in AM (patient on tresiba at home, 1:1 conversion), with insulin sliding scale coverage #Normocytic Anemia: stable DVT Prophylaxis: SCDs dispo; med surg: Visit type - Emergency Visit Emergency Visit: Yes ED Registration Date: 03/10/19 Care time: The patient presented to the Emergency Department on the above date and was hospitalized for further evaluation of their emergent condition. - New Patient This patient is new to me today: Yes Date on this admission: 03/14/19 - Critical Care Critical Care patient: No
[2019-03-14] MEDS ORDERED: INSULIN (NOVOLOG) ASPART 100 UNITS/ML 10ML VIAL ONE (11:19)
--- NOTE | 2019-03-14 12:42 | DS ---
Physical Exam: SUBJECTIVE: Patient seen and examined OBJECTIVE: Vital Signs Period Temp Pulse Resp BP Sys/Shen Pulse Ox Last 24 Hr 98.0 F-98.6 F 64-102 20-20 131-140/50-70 97-97 PHYSICAL EXAM GENERAL: The patient is awake, alert, and fully oriented, in no acute distress. HEAD: Normal with no signs of trauma. ENT: moist mucous membranes. NECK: Trachea midline, full range of motion, supple. LUNGS: Breath sounds equal, clear to auscultation bilaterally, no wheezes, no crackles, no accessory muscle use. HEART: Regular rate and rhythm, S1, S2 without murmur, rub or gallop. ABDOMEN: Soft, nontender, distended, normoactive bowel sounds, no guarding, no rebound, EXTREMITIES: 2+ pulses, warm, well-perfused, edema ++ NEUROLOGICAL: Cranial nerves II through XII grossly intact. PSYCH: Normal mood, normal affect. SKIN: Warm, dry, LABS Laboratory Results - last 24 hr 03/13/19 03/13/19 03/14/19 17:01 21:25 05:51 POC Glucometer 296 298 148 03/14/19 11:09 POC Glucometer 215 HOSPITAL COURSE:Mr. Diehl is a 68 male with a past medical hx of asthma, DM, fatty liver, HCV, and cirrhosis who presents to the ED with a 1 day history of "abnormal behavior" per his . His is at bedside and helped provide history. She noted that last night he demonstrated increased anxiety, forgetfulness, generalized weakness of the lower extremities, tangential speech , and disorientation to surroundings. The next morning, his noted that his mental status had not improved and she gave him 1 teaspoon of lactulose without notable relief of symptoms. Per patient's , she reports that currently he is at his baseline. Patient reports being compliant with medications. Mr. Diehl follows with Dr. Daly and has an appointment tomorrow. He notes an average of 4 BM/day, although he has had only one BM today. Patient denies fevers, chills, recent illness, headaches, N/V, changes in urine color, changes in stool color/ consistency, abdominal pain, chest pain, SOB Pt was diagnosed as hepatic encephlaopathy and Gi dr daly was consulted pt was started on rifexamin, lactulose , nadolol. Pt mental status improved and is aox3. Pt also found to have increase swelling on his legs for which in hospital he was tretaed with 40mg iv lasix and his weight and swelling decreased to 205 pounds. Now pt id dc is stable condition. Instructions Follow up with your gastroentrologist Dr daly on Friday03/17/19. Also follow up with your corey c quantitative result with Dr daly Follow up with your primary doctor with in one week WE have stopped your aspirin . Take rifexamin 55o mb BID Take lactulose as prescribed You need to have 3-4 soft bowel movements every day Take lasix and spironolactone as you were taking before Take all other medications as your were taking before. 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 If you develop bleeding in stool, vomit, or if you notice increase in your weight or abdomen is getting bigger or any change in mental status then contact your doctor or your gastroentrologist or go to hospital DC plan discussed with Dr daly and Dr. Benitez Date of Admission:03/10/19 Date of Discharge: 03/14/19 Minutes to complete discharge: 45 Discharge Summary Reason For Visit: HEPATIC ENCEPHALOPATHY Current Active Problems Hepatic encephalopathy (Acute) Unintentional weight loss (Acute) Condition: Stable - Instructions Diet, Activity, Other Instructions: Follow up with your gastroentrologist Dr daly on Friday03/17/19 Follow up with your primary doctor with in one week WE have stopped your aspirin . Take rifexamin 55o mb BID Take lactulose as prescribed You need to have 3-4 soft bowel movements every day Take lasix and spironolactone as you were taking before Take all other medications as your were taking before. 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 If you develop bleeding in stool, vomit, or if you notice increase in your weight or abdomen is getting bigger or any change in mental status then contact your doctor or your gastroentrologist or go to hospital Referrals: Sal Daly MD [Staff Physician] - 03/17/19 Disposition: HOME - Home Medications Comprehensive Discharge Medication List: Ambulatory Orders Gabapentin 300 mg PO DAILY 11/26/18 Glipizide [Glipizide ER] 10 mg PO BID 11/26/18 Sitagliptin Phosphate [Januvia] 50 mg PO DAILY 11/26/18 Pantoprazole Sodium [Protonix -] 40 mg PO DAILY #30 tablet.ec 11/30/18 Insulin Degludec [Tresiba Flextouch U-100] 50 units SQ DAILY 02/08/19 Lactulose 20 gm PO Q8H #2700 ml 02/09/19 Nadolol [Corgard -] 40 mg PO DAILY 02/09/19 Fluticasone/Salmeterol [Advair Hfa 115-21 Mcg Inhaler] 1 puff PO BID 03/11/19 Furosemide [Lasix] 40 mg PO DAILY 03/11/19 Spironolactone 100 mg PO DAILY 03/11/19 Donepezil HCl [Aricept -] 5 mg PO DAILY #15 tablet 03/14/19 Miscellaneous Medical Supply [Outpatient Order] 1 each ASDIR #1 misc Rifaximin [Xifaxan -] 550 mg PO BID #30 tablet 03/14/19 This patient is new to me today: Yes Date on this admission: 03/14/19 Emergency Visit: Yes ED Registration Date: 03/10/19 Care time: The patient presented to the Emergency Department on the above date and was hospitalized for further evaluation of their emergent condition. Critical Care patient: No - Discharge Referral Referred to [facility] Med P.C.: No
--- NOTE | 2019-03-14 13:49 | PN ---
Teaching Attending Note Name of Resident: David Reddy ATTENDING PHYSICIAN STATEMENT I saw and evaluated the patient. I reviewed the resident's note and discussed the case with the resident. I agree with the resident's findings and plan as documented. SUBJECTIVE: Patient is feeling better with no acute distress. swelling of his lower extremities improving. back to his baseline. OBJECTIVE: Vital Signs Temperature 98.6 F 03/14/19 05:48 Pulse Rate 102 H 03/14/19 08:38 Respiratory Rate 20 03/14/19 08:38 Blood Pressure 140/70 03/14/19 08:38 O2 Sat by Pulse Oximetry (%) 97 03/14/19 09:00 Initial Vital Signs Temp Pulse Resp BP Pulse Ox 97.6 F 61 18 131/59 L 99 03/10/19 13:00 03/10/19 13:00 03/10/19 13:00 03/10/19 13:00 03/10/19 13:00 GENERAL: The patient is awake, alert, and fully oriented, in no acute distress. HEAD: Normal with no signs of trauma. EYES: PERRL, extraocular movements intact, sclera anicteric, conjunctiva clear. ENT: Ears normal, oropharynx clear without exudates, moist mucous membranes. NECK: Trachea midline, full range of motion, supple. LUNGS: Breath sounds equal, clear to auscultation bilaterally, no wheezes, no crackles, no accessory muscle use. HEART: Regular rate and rhythm, S1, S2 without murmur, rub or gallop. ABDOMEN: Soft, nontender, distended abdomen. normoactive bowel sounds, no guarding, no rebound, positive hepatomegaly, no masses. EXTREMITIES: 2+ pulses, warm, well-perfused, 1 plus edema NEUROLOGICAL: Cranial nerves II through XII grossly intact. Normal speech, gait not observed. PSYCH: Normal mood, normal affect. SKIN: Warm, dry, normal turgor, no rashes or lesions noted CBCD WBC 4.4 K/mm3 (4.0-10.0) 03/12/19 06:05 RBC 2.70 M/mm3 (4.00-5.60) L 03/12/19 06:05 Hgb 8.0 GM/dL (11.7-16.9) L 03/12/19 06:05 Hct 23.4 % (35.4-49) L 03/12/19 06:05 MCV 86.7 fl (80-96) 03/12/19 06:05 MCHC 34.3 g/dl (32.0-35.9) 03/12/19 06:05 RDW 16.6 % (11.9-15.9) H 03/12/19 06:05 Plt Count 59 K/MM3 (134-434) L 03/12/19 06:05 MPV 8.9 fl (7.5-11.1) 03/12/19 06:05 CMP Sodium 143 mmol/L (136-145) 03/12/19 06:05 Potassium 3.8 mmol/L (3.5-5.1) 03/12/19 06:05 Chloride 109 mmol/L (98-107) H 03/12/19 06:05 Carbon Dioxide 29 mmol/L (21-32) 03/12/19 06:05 Anion Gap 5 MMOL/L (8-16) L 03/12/19 06:05 BUN 28 mg/dL (7-18) H 03/12/19 06:05 Creatinine 1.0 mg/dL (0.55-1.3) 03/12/19 06:05 Random Glucose 111 mg/dL (74-106) H 03/12/19 06:05 Calcium 8.1 mg/dL (8.5-10.1) L 03/12/19 06:05 Total Bilirubin 2.1 mg/dL (0.2-1) H 03/12/19 06:05 AST 62 U/L (15-37) H 03/12/19 06:05 ALT 34 U/L (13-61) 03/12/19 06:05 Alkaline Phosphatase 80 U/L (45-117) 03/12/19 06:05 Total Protein 5.6 g/dl (6.4-8.2) L 03/12/19 06:05 Albumin 2.1 g/dl (3.4-5.0) L 03/12/19 06:05 CARDIAC ENZYMES Troponin I < 0.02 ng/ml (0.00-0.05) 03/10/19 14:43 Current Medications Generic Name Dose Route Start Last Admin Trade Name Freq PRN Reason Stop Dose Admin Donepezil HCl 5 mg 03/11/19 10:00 03/14/19 09:31 Aricept - PO 5 mg DAILY REBEL Administration Furosemide 40 mg 03/14/19 10:00 03/14/19 11:23 Lasix - PO 40 mg DAILY REBEL Administration Gabapentin 300 mg 03/11/19 10:00 03/14/19 09:30 Neurontin - PO 300 mg DAILY REBEL Administration Insulin Aspart 1 vial 03/10/19 22:00 03/14/19 11:23 Novolog Vial Sliding Scale - SQ 4 units ACHS REBEL Administration Protocol Insulin Detemir 50 units 03/11/19 07:00 03/14/19 06:23 Levemir Vial SQ 50 units AM REBEL Administration Lactulose 20 gm 03/10/19 19:45 03/14/19 11:23 Cephulac (Oral Use) PO 20 gm Q8H REBEL Administration Nadolol 40 mg 03/15/19 10:00 Corgard - PO DAILY REBEL Pantoprazole Sodium 40 mg 03/12/19 10:00 03/14/19 09:30 Protonix - PO 40 mg DAILY REBEL Administration Rifaximin 550 mg 03/10/19 22:00 03/14/19 09:30 Xifaxan - PO 550 mg BID REBEL Administration Fluticasone/Salmeterol 1 puff 03/11/19 22:00 03/14/19 09:31 Advair 100mcg/50mcg - IH 1 puff BID REBEL Administration Spironolactone 100 mg 03/12/19 10:00 03/14/19 09:29 Aldactone - PO 100 mg DAILY REBEL Administration Home Medications Medication Instructions Recorded Gabapentin 300 mg PO DAILY 11/26/18 Glipizide [Glipizide ER] 10 mg PO BID 11/26/18 Sitagliptin Phosphate [Januvia] 50 mg PO DAILY 11/26/18 Pantoprazole Sodium [Protonix -] 40 mg PO DAILY #30 tablet.ec 11/30/18 Insulin Degludec [Tresiba 50 units SQ DAILY 02/08/19 Flextouch U-100] Lactulose 20 gm PO Q8H #2700 ml 02/09/19 Fluticasone/Salmeterol [Advair Hfa 1 puff PO BID 03/11/19 115-21 Mcg Inhaler] Furosemide [Lasix] 40 mg PO DAILY 03/11/19 Donepezil HCl [Aricept -] 5 mg PO DAILY #15 tablet 03/14/19 Miscellaneous Medical Supply 1 each ASDIR #1 misc 03/14/19 [Outpatient Order] Nadolol [Corgard -] 40 mg PO DAILY #30 tablet 03/14/19 Rifaximin [Xifaxan -] 550 mg PO BID #30 tablet 03/14/19 Spironolactone 100 mg PO DAILY #30 tablet 03/14/19 ASSESSMENT AND PLAN: Patient is 68 male with a past medical hx of asthma, DM, fatty liver, HCV, and cirrhosis who presents to the ED with a 1 day history of acute change of mental status, presented with abnormal behavior and is admitted for further evaluation and treatment. # Acute change of Mental Status improved due to metabolic encephalopathy with ammonia level of 8, resolved back to his baseline . will continue lactulose 20mg PO TID, continue rifaximin 550 mg PO BID, increased lasix to 40mg po daily, and spironolactone 100mg daily and nadolol 40mg daily. Discussed with senait Ramirez to discharge patient home, with follow up visit on Friday further w/u by . # swelling of lower extremities improving. # Hypoalbunuminia : s/p albumin infusion. # Liver Cirrhosis continue current meds. Markers are negative Abdominal US shows echogenic liver compatible with liver cirrhosis, splenomegaly, CBD 10.5mm , and ascites in right upper abdomen. # Hx of hepatitis C : HCV quantitation is pending. #T2DM: started on levemir 50U in AM (patient on tresiba at home, 1:1 conversion ), with insulin sliding scale coverage #Normocytic Anemia: stable discharge today
[2019-03-15] MEDS ORDERED: NADOLOL 40 MG TABLET (FP) PO SCH (10:00)
== END 2019-03-14 17:04 | disposition home or self-care (01) | DRG 442 ==
LOC: JER 12:55 → JERBED 18:48 → J6S 03-11 00:36
PROVIDERS: ADMIT Internal Medicine; ATTEND Internal Medicine
DX: K72.00 Acute and subacute hepatic failure without coma (principal); R18.8 Other ascites; J45.909 Unspecified asthma, uncomplicated; E11.9 Type 2 diabetes mellitus without complications; K74.60 Unspecified cirrhosis of liver; B18.2 Chronic viral hepatitis C; E88.09 Other disorders of plasma-protein metabolism, not elsewhere classified; D64.9 Anemia, unspecified; E66.9 Obesity, unspecified; Z68.34 Body mass index [BMI] 34.0-34.9, adult; R41.82 Altered mental status, unspecified; R63.4 Abnormal weight loss; Z79.4 Long term (current) use of insulin
CPT/HCPCS: 36415; 70450-TC; 71045-TC-FY; 76700-TC; 80048; 80053; 80076; 81003; 82105; 82140; 82378; 82728; 82962; 83540; 83550; 83735; 83880; 84100; 84153; 84443; 84484; 85025; 85027; 85044; 85610; 85730; 86301; 87522; 93005; 93010; 97116-GP; 97162-GP; 99283-25; P9047

== ENCOUNTER 2019-06-17 12:22 | Inpatient (IN) | payer OTHER, BC ==
[2019-06-17] MEDS ORDERED: DEXTROSE 50%-WATER 25 GM/50 ML DISP.SYRIN ONE (12:35)
--- NOTE | 2019-06-17 12:38 | PDOC ---
History of Present Illness - General Stated Complaint: Blood Sugar Problem Time Seen by Provider: 06/17/19 12:24 - History of Present Illness Initial Comments: 06/17/19 12:38 68 male with a past medical hx of asthma, DM, fatty liver, HCV, and cirrhosis who presents to the ED with altered mental status due to hypoglycemia. Recently discharged last Friday from [facility] for hypoglycemia and hepatic encephalopathy and paracentesis. Complains that his blood sugar gets low every time he takes his Glipizide ER and that this is a recurrent problem that gets him admitted every time. Is on a transplant list for his liver. Was found by his family this morningunresponsive but moving, for a few minutes. EMS was called, found his blood sugar to be 46. Got 2x D10 which brought his sugar to 140, then down to 80 in our ED triage, down to 49 at bedside. Patient feels at baseline, no pain. Denies dizziness, fever, chills, chest or abdominal pain. Already took his lactulose this morning. 06/17/19 14:49 Past History - Past Medical History Allergies/Adverse Reactions: Allergies Allergy/AdvReac Type Severity Reaction Status Date / Time shellfish derived Allergy Verified 03/10/19 13:00 Home Medications: Ambulatory Orders Gabapentin 300 mg PO DAILY 11/26/18 Glipizide [Glipizide ER] 10 mg PO BID 11/26/18 Sitagliptin Phosphate [Januvia] 50 mg PO DAILY 11/26/18 Pantoprazole Sodium [Protonix -] 40 mg PO DAILY #30 tablet.ec 11/30/18 Insulin Degludec [Tresiba Flextouch U-100] 50 units SQ DAILY 02/08/19 Lactulose 20 gm PO Q8H #2700 ml 02/09/19 Fluticasone/Salmeterol [Advair Hfa 115-21 Mcg Inhaler] 1 puff PO BID 03/11/19 Furosemide [Lasix] 40 mg PO DAILY 03/11/19 Donepezil HCl [Aricept -] 5 mg PO DAILY #15 tablet 03/14/19 Miscellaneous Medical Supply [Outpatient Order] 1 each ASDIR #1 misc Nadolol [Corgard -] 40 mg PO DAILY #30 tablet 03/14/19 Rifaximin [Xifaxan -] 550 mg PO BID #30 tablet 03/14/19 Spironolactone 100 mg PO DAILY #30 tablet 03/14/19 Anemia: Yes Asthma: Yes Cardiac Disorders: Yes (AF) COPD: No Diabetes: Yes GI Disorders: Yes (duod ulcer) Liver Disease: Yes (Fatty liver, cirrosis, Hpe c) - Suicide/Smoking/Psychosocial Hx Smoking Status: No Smoking History: Never smoked Have you smoked in the past 12 months: No Number of Cigarettes Smoked Daily: 0 Hx Alcohol Use: No Drug/Substance Use Hx: No Substance Use Type: None Hx Substance Use Treatment: No Review of Systems - Review of Systems Able to Perform ROS?: Yes Is the patient limited Khmer proficient: No Constitutional: No: Symptoms Reported HEENTM: No: Symptoms Reported Respiratory: No: Symptoms reported Cardiac (ROS): No: Symptoms Reported ABD/GI: No: Symptoms Reported : No: Symptoms Reported Musculoskeletal: No: Symptoms Reported Integumentary: No: Symptoms Reported Neurological: No: Symptoms reported All Other Systems: Reviewed and Negative *Physical Exam - Physical Exam General Appearance: Yes: Nourished, Appropriately Dressed. No: Apparent Distress HEENT: positive: EOMI, RITIKA, Normal ENT Inspection, Scleral Icterus (R), Scleral Icterus (L) Respiratory/Chest: positive: Lungs Clear, Normal Breath Sounds. negative: Chest Tender, Respiratory Distress Cardiovascular: positive: Regular Rhythm, Regular Rate, S1, S2 Gastrointestinal/Abdominal: positive: Normal Bowel Sounds, Protuberent, Distended, Hepatomegaly. negative: Tender, Guarding, Rebound Musculoskeletal: positive: Normal Inspection. negative: CVA Tenderness Extremity: positive: Normal Capillary Refill, Normal Inspection, Normal Range of Motion, Pedal Edema (b/l, pitting) Integumentary: positive: Jaundice (mild), Bruising (from sites of IV from previous admission. ) Neurologic: positive: Fully Oriented, Alert, Normal Mood/Affect, Normal Response , Other (+ asterixis, mild) ED Treatment Course - LABORATORY CBC & Chemistry Diagram: 06/17/19 13:00 06/17/19 13:00 - ADDITIONAL ORDERS Additional order review: Laboratory Results 06/17/19 12:34 POC Glucometer 50 06/17/19 12:34 POC Glucometer 50 Medical Decision Making - Medical Decision Making 06/17/19 14:08 68m with pmh of cirrhosis and diabetes presents with episode of altered mental status found hypoglycemic. PAtient sugar at 49 at bedside. Giving amp of D50 and food. Will do a full workup hepatic encephalopathy workup as this episode of hypoglycemia could have happened due to slower metabolism of insulin by diseased liver. Will check ammonia level, basic labs, EKG and trop to r/o TN, UA/UC. May have to give additional lactulose from his home dose. Probable admission to med surg. 06/17/19 14:16 EKG: Normal sinus rhythm, LBBB, (Unchanged from last ekg) 06/17/19 14:31 Repeat blood sugar 69 06/17/19 14:45 Addition D50 amp 06/17/19 15:02 Patient admitted to Med/surg. Recommend Endocrinology consult. *DC/Admit/Observation/Transfer Diagnosis at time of Disposition: Hypoglycemia, Cirrhosis, Hepatic encephalopathy - Discharge Dispostion Decision to Admit order: Yes - Referrals Referrals: Beka Fraser MD [Primary Care Provider] - - Patient Instructions - Post Discharge Activity
[2019-06-17] MEDS ORDERED: DEXTROSE 50%-WATER - 25 GM/50 ML VIAL IVPUSH ONE (12:41)
--- NOTE | 2019-06-17 13:25 | PDOC ---
Attending Attestation - Resident Resident Name: Wilfrido Pratt - ED Attending Attestation I have performed the following: I have examined & evaluated the patient, The case was reviewed & discussed with the resident, I agree w/resident's findings & plan, Exceptions are as noted - HPI HPI: 68 yo M history asthma, DM, fatty liver, HCV, cirrhosis presenting with hypoglycemia. As per patient and family at bedside, he was recently admitted to [facility] for similar complaint, as well as for hepatic encephalopathy. He notes that his blood sugar has been difficult to control. Family states that his blood sugar frequently drops low. - Physicial Exam PE: GENERAL: Awake, alert, and fully oriented, in no acute distress HEAD: No signs of trauma EYES: PERRLA, EOMI, sclera anicteric, conjunctiva clear ENT: Auricles normal inspection, hearing grossly normal, nares patent, oropharynx clear without exudates. Moist mucosa NECK: Normal ROM, supple, no lymphadenopathy, JVD, or masses LUNGS: Breath sounds equal, clear to auscultation bilaterally. No wheezes, and no crackles HEART: Regular rate and rhythm, normal S1 and S2, no murmurs, rubs or gallops ABDOMEN: Soft, nontender, normoactive bowel sounds. No guarding, no rebound. No masses EXTREMITIES: Normal range of motion, 3+ pitting edema to knees B/L. No clubbing or cyanosis. No cords, erythema, or tenderness NEUROLOGICAL: Cranial nerves II through XII grossly intact. Normal speech. Motor and sensation intact SKIN: Warm, dry, normal turgor, no rashes or lesions noted. +Mild jaundice - Medical Decision Making Pt presents with recurrent hypoglycemia. He has history of liver failure, on multiple meds for diabetes. Will give him a tray of food, check labs. He will likely require admission for recurrent hypoglycemia, for endocrine eval.
[2019-06-17] MEDS ORDERED: DEXTROSE 5%-WATER - 1,000 ML IV SCH (13:45)
[2019-06-17 13:46] LABS: BASO % 0.8 % (0-2.0); EOS % 1.5 % (0-4.5); HEMATOCRIT 24.2 % (35.4-49); HEMOGLOBIN 8.1 GM/dL (11.7-16.9); LYMPH % 11.2 % (8-40); MCH 30.4 pg (25.7-33.7); MCHC 33.3 g/dl (32.0-35.9); MEAN CELL VOLUME 91.2 fl (80-96); MONO % 6.6 % (3.8-10.2); NEUT % 79.9 % (42.8-82.8); PLATELET COUNT 43 K/MM3 (134-434); RBC 2.66 M/mm3 (4.00-5.60); RDW 19.2 % (11.9-15.9); VENOUS PC02 47.2 mmHg (41-51); VENOUS PH 7.35 (7.31-7.41); VENOUS PO2 32.2 mmHg (30-40); WHITE BLOOD COUNT 4.2 K/mm3 (4.0-10.0)
[2019-06-17 14:09] LABS: INR 1.51 (0.83-1.09); PROTHROMBIN TIME (PATIENT) 17.9 SEC (9.7-13.0)
[2019-06-17 14:11] LABS: ALBUMIN 3.8 g/dl (3.4-5.0); ALK PHOS 133 U/L (45-117); ANION GAP 8 MMOL/L (8-16); BILIRUBIN,DIRECT 0.8 mg/dL (0.0-0.2); BLOOD UREA NITROGEN 24.7 mg/dL (7-18); CALCIUM 8.7 mg/dL (8.5-10.1); CHLORIDE 106 mmol/L (98-107); CO2 27 mmol/L (21-32); CREATININE 1.3 mg/dL (0.55-1.3); GLUCOSE,RANDOM 80 mg/dL (74-106); N-TERMINAL BNP 1379.3 pg/ml (5-125); POTASSIUM 3.5 mmol/L (3.5-5.1); SGOT/AST 64 U/L (15-37); SGPT/ALT 34 U/L (13-61); SODIUM 141 mmol/L (136-145); TOT PROT 7.3 g/dl (6.4-8.2)
[2019-06-17 14:44] LABS: EPI CELLS 0.4 /HPF (0-5/HPF); HYALINE CASTS 2 /lpf (0-8); PH,URINE 5.5 (5.0-8.0); URINE APPEARANCE CLEAR; URINE BILIRUBIN NEGATIVE (NEGATIVE); URINE COLOR YELLOW; URINE GLUCOSE (UA) NEGATIVE (NEGATIVE); URINE KETONE NEGATIVE (NEGATIVE); URINE LEUK ESTERASE TRACE (NEGATIVE); URINE NITRITE NEGATIVE (NEGATIVE); URINE PROTEIN 1+ (NEGATIVE); URINE RBC 6 /hpf (0-4); URINE UROBILINOGEN 0.2 mg/dL (0.2-1.0); URINE WBC 2 /hpf (0-5)
--- NOTE | 2019-06-17 16:01 | HP ---
CHIEF COMPLAINT: altered mental status; hypoglycemia PCP:dr. gonzalez HISTORY OF PRESENT ILLNESS: 68 y/o male with PMH of DM, HCV, cirrhosis, asthma previous episodes of hepatic encephalopathy was brought to the ED after he was found to be altered at home by his -he states whenever his sugar goes low he goes in and out of consciousness and that's what happened. he states that his was trying to call his name and he wasn't responding and his mental status was "off" so she called EMS, when EMS arrived his BGM was 46 and he was given D10 x2- he states that he does not follow with an director skills and this happens very frequently to him; he was in the hospital at [place] last week with the same exact presentation also at that time his abdomen was very distended and her needed a paracentesis as he also presented with hepatic encephalopathy at the time. he denies having any falls, headaches/dizziness or chest pains, no systemic symptoms. no recent travel or sick contacts ER course was notable for: (1)BGM upon arrival 48 then 74 then 67 (2) hgb 8; Cr 1.3, ammonia 49 (3)d50 x1; d5 @75mls/hr, Recent Travel: denies PAST MEDICAL HISTORY: see above PAST SURGICAL HISTORY: left elbow surgery Social History: Smoking:former; quit 10 years ago Alcohol:former hasn't had a drink in months; was a heavy drinker many years ago Drugs: former cocaine user Family History:denies Allergies shellfish derived Allergy (Verified 03/10/19 13:00) HOME MEDICATIONS: Home Medications Medication Instructions Recorded Gabapentin 300 mg PO DAILY 11/26/18 Glipizide [Glipizide ER] 10 mg PO BID 11/26/18 Sitagliptin Phosphate [Januvia] 50 mg PO DAILY 11/26/18 Pantoprazole Sodium [Protonix -] 40 mg PO DAILY #30 tablet.ec 11/30/18 Lactulose 20 gm PO Q8H #2700 ml 02/09/19 Fluticasone/Salmeterol [Advair Hfa 1 puff PO BID 03/11/19 115-21 Mcg Inhaler] Furosemide [Lasix] 40 mg PO BID 03/11/19 Donepezil HCl [Aricept -] 5 mg PO DAILY #15 tablet 03/14/19 Miscellaneous Medical Supply 1 each ASDIR #1 misc 03/14/19 [Outpatient Order] Nadolol [Corgard -] 40 mg PO DAILY #30 tablet 03/14/19 Rifaximin [Xifaxan -] 550 mg PO BID #30 tablet 03/14/19 Spironolactone 100 mg PO DAILY #30 tablet 03/14/19 REVIEW OF SYSTEMS CONSTITUTIONAL: Absent: fever, chills, diaphoresis, generalized weakness, malaise, loss of appetite, weight change HEENT: Absent: rhinorrhea, nasal congestion, throat pain, throat swelling, difficulty swallowing, mouth swelling, ear pain, eye pain, visual changes CARDIOVASCULAR: Absent: chest pain, syncope, palpitations, irregular heart rate, lightheadedness , peripheral edema RESPIRATORY: Absent: cough, shortness of breath, dyspnea with exertion, orthopnea, wheezing, stridor, hemoptysis GASTROINTESTINAL: Absent: abdominal pain, abdominal distension, nausea, vomiting, diarrhea, constipation, melena, hematochezia GENITOURINARY: Absent: dysuria, frequency, urgency, hesitancy, hematuria, flank pain, genital pain MUSCULOSKELETAL: Absent: myalgia, arthralgia, joint swelling, back pain, neck pain SKIN: Absent: rash, itching, pallor HEMATOLOGIC/IMMUNOLOGIC: Absent: easy bleeding, easy bruising, lymphadenopathy, frequent infections ENDOCRINE: Absent: unexplained weight gain, unexplained weight loss, heat intolerance, cold intolerance NEUROLOGIC: Present: mental status changes Absent: headache, focal weakness or paresthesias , dizziness, unsteady gait, seizure, bladder or bowel incontinence PSYCHIATRIC: Absent: anxiety, depression, suicidal or homicidal ideation, hallucinations. PHYSICAL EXAMINATION Vital Signs - 24 hr 06/17/19 12:44 Temperature 98.4 F Pulse Rate 76 Respiratory 18 Rate Blood Pressure 138/59 L O2 Sat by Pulse 99 Oximetry (%) GENERAL: Awake, alert, and fully oriented, in no acute distress.. EYES: PEERLA; EOMI; no scleral icterus. NECK:no JVD; no lymphadenopathy. LUNGS:CTA B/L; no rales, rhonchi or wheezing HEART: Regular rate and rhythm, normal S1 and S2 without murmur, rub or gallop. ABDOMEN: Soft, nontender, slightly distended,+bS in all 4 quadrants; no shifting fluid wave; MUSCULOSKELETAL: Normal range of motion at all joints. No bony deformities or tenderness. No CVA tenderness. EXTREMITIES: warm; well-perfused 1-2+ pitting edema B/L NEUROLOGICAL: Cranial nerves II-XII intact. strength 5/5 BL UE and LE ; sensation intact; no flapping tremor or asterixis . SKIN: Warm, dry, normal turgor, no rashes or lesions noted, normal capillary refill. Laboratory Results - last 24 hr 06/17/19 06/17/19 06/17/19 12:34 13:00 13:00 WBC 4.2 RBC 2.66 L Hgb 8.1 L Hct 24.2 L MCV 91.2 MCH 30.4 MCHC 33.3 RDW 19.2 H Plt Count 43 L D MPV 9.0 Absolute Neuts (auto) 3.3 Neutrophils % 79.9 D Lymphocytes % 11.2 D Monocytes % 6.6 Eosinophils % 1.5 Basophils % 0.8 Nucleated RBC % 0 PT with INR INR PTT (Actin FS) VBG pH POC VBG pCO2 POC VBG pO2 VBG HCO3 VBG O2 Sat (Katie) VBG Base Excess Sodium Potassium Chloride Carbon Dioxide Anion Gap BUN Creatinine Est GFR (CKD-EPI)AfAm Est GFR (CKD-EPI)NonAf POC Glucometer 50 Random Glucose Calcium Total Bilirubin Direct Bilirubin AST ALT Alkaline Phosphatase Ammonia 49.40 H Troponin I B-Natriuretic Peptide Total Protein Albumin Urine Color Urine Appearance Urine pH Ur Specific [place] Urine Protein Urine Glucose (UA) Urine Ketones Urine Blood Urine Nitrite Urine Bilirubin Urine Urobilinogen Ur Leukocyte Esterase Urine WBC (Auto) Urine RBC (Auto) Urine Casts (Auto) U Epithel Cells (Auto) Urine Bacteria (Auto) 06/17/19 06/17/19 06/17/19 13:00 13:00 13:00 WBC RBC Hgb Hct MCV MCH MCHC RDW Plt Count MPV Absolute Neuts (auto) Neutrophils % Lymphocytes % Monocytes % Eosinophils % Basophils % Nucleated RBC % PT with INR INR PTT (Actin FS) 35.0 VBG pH 7.35 POC VBG pCO2 47.2 POC VBG pO2 32.2 VBG HCO3 25.4 VBG O2 Sat (Katie) 51.2 L VBG Base Excess 0.2 Sodium 141 Potassium 3.5 Chloride 106 Carbon Dioxide 27 Anion Gap 8 BUN 24.7 H Creatinine 1.3 Est GFR (CKD-EPI)AfAm 64.07 Est GFR (CKD-EPI)NonAf 55.28 POC Glucometer Random Glucose 80 Calcium 8.7 Total Bilirubin 2.0 H Direct Bilirubin 0.8 H AST 64 H ALT 34 Alkaline Phosphatase 133 H Ammonia Troponin I < 0.02 B-Natriuretic Peptide 1379.3 H Total Protein 7.3 Albumin 3.8 Urine Color Urine Appearance Urine pH Ur Specific [place] Urine Protein Urine Glucose (UA) Urine Ketones Urine Blood Urine Nitrite Urine Bilirubin Urine Urobilinogen Ur Leukocyte Esterase Urine WBC (Auto) Urine RBC (Auto) Urine Casts (Auto) U Epithel Cells (Auto) Urine Bacteria (Auto) 06/17/19 06/17/19 06/17/19 13:00 13:35 14:00 WBC RBC Hgb Hct MCV MCH MCHC RDW Plt Count MPV Absolute Neuts (auto) Neutrophils % Lymphocytes % Monocytes % Eosinophils % Basophils % Nucleated RBC % PT with INR 17.90 H INR 1.51 H PTT (Actin FS) VBG pH POC VBG pCO2 POC VBG pO2 VBG HCO3 VBG O2 Sat (Katie) VBG Base Excess Sodium Potassium Chloride Carbon Dioxide Anion Gap BUN Creatinine Est GFR (CKD-EPI)AfAm Est GFR (CKD-EPI)NonAf POC Glucometer 74 Random Glucose Calcium Total Bilirubin Direct Bilirubin AST ALT Alkaline Phosphatase Ammonia Troponin I B-Natriuretic Peptide Total Protein Albumin Urine Color Yellow Urine Appearance Clear Urine pH 5.5 Ur Specific [place] 1.006 L Urine Protein 1+ H Urine Glucose (UA) Negative Urine Ketones Negative Urine Blood 2+ H Urine Nitrite Negative Urine Bilirubin Negative Urine Urobilinogen 0.2 Ur Leukocyte Esterase Trace Urine WBC (Auto) 2 Urine RBC (Auto) 6 Urine Casts (Auto) 2 U Epithel Cells (Auto) 0.4 Urine Bacteria (Auto) 3.0 06/17/19 14:27 WBC RBC Hgb Hct MCV MCH MCHC RDW Plt Count MPV Absolute Neuts (auto) Neutrophils % Lymphocytes % Monocytes % Eosinophils % Basophils % Nucleated RBC % PT with INR INR PTT (Actin FS) VBG pH POC VBG pCO2 POC VBG pO2 VBG HCO3 VBG O2 Sat (Katie) VBG Base Excess Sodium Potassium Chloride Carbon Dioxide Anion Gap BUN Creatinine Est GFR (CKD-EPI)AfAm Est GFR (CKD-EPI)NonAf POC Glucometer 69 Random Glucose Calcium Total Bilirubin Direct Bilirubin AST ALT Alkaline Phosphatase Ammonia Troponin I B-Natriuretic Peptide Total Protein Albumin Urine Color Urine Appearance Urine pH Ur Specific [place] Urine Protein Urine Glucose (UA) Urine Ketones Urine Blood Urine Nitrite Urine Bilirubin Urine Urobilinogen Ur Leukocyte Esterase Urine WBC (Auto) Urine RBC (Auto) Urine Casts (Auto) U Epithel Cells (Auto) Urine Bacteria (Auto) ASSESSMENT/PLAN: 68 y/o male with PMH of DM, HCV, cirrhosis, asthma previous episodes of hepatic encephalopathy was brought to the ED after he was found to be altered at home by his with a sugar of 46 #Altered Mental Status 2/2 hypoglycemia patient received d50 x1 and placed on d5@75mls/hr -D5NS@75mls/hr -holding home hypoglycemics -endocrine consult -BGMS q4H -ISS ACHS -neuro checks #DM see above management Hba1c for AM #Cirrhosis patients ammonia was 49 on arrival -c/w spironolactone 100 daily -nadolol 40mg daily -lactulose 20mg q8H -rifaxamin 550 daily -lasix 40mg BID #Asthma patient not currently having an exacerbation -c/w patients inhaler -monitor o2 status #Anemia patients Hgb was 8.1 on arrival -at baseline likely chronic 2/2 alcohol and cirrhosis -monitor for signs of bleeding #Thrombocytopenia 2/2 cirrhosis -monitor for signs of bleeding -SCDS for dvt ppx F/E/N d5ns@75mls/hr monitor electrolytes diabetic diet DVT PPX: SCDS (in light of thrombocytopenia) ATTENDING PHYSICIAN STATEMENT I saw and evaluated the patient. I reviewed the resident's note and discussed the case with the resident. I agree with the resident's findings and plan as documented. SUBJECTIVE: OBJECTIVE: ASSESSMENT AND PLAN:
--- NOTE | 2019-06-17 17:14 | PN ---
Teaching Attending Note Name of Resident: Shasha Cortez ATTENDING PHYSICIAN STATEMENT I saw and evaluated the patient. I reviewed the resident's note and discussed the case with the resident. I agree with the resident's findings and plan as documented. SUBJECTIVE: Feels well, no lightheadedness/dizziness/visual disturbance. OBJECTIVE: Afebrile, Hemodynamically Stable Last Vital Signs Temp Pulse Resp BP Pulse Ox 98.4 F 76 18 138/59 L 99 06/17/19 12:44 06/17/19 12:44 06/17/19 12:44 06/17/19 12:44 06/17/19 12:44 HEENT- Atraumatic, Normocephalic Heart - S1 S2, RRR Lungs - Clear to auscultation Abdomen - soft, non-tender. Bowel Sounds normal. Extremities - LE Edema +, chronic venous stasis. Neuro - AAO x 3. Tone/Power normal all 4 extremities. Laboratory Results - last 24 hr 06/17/19 06/17/19 06/17/19 12:34 13:00 13:00 WBC 4.2 RBC 2.66 L Hgb 8.1 L Hct 24.2 L MCV 91.2 MCH 30.4 MCHC 33.3 RDW 19.2 H Plt Count 43 L D MPV 9.0 Absolute Neuts (auto) 3.3 Neutrophils % 79.9 D Lymphocytes % 11.2 D Monocytes % 6.6 Eosinophils % 1.5 Basophils % 0.8 Nucleated RBC % 0 PT with INR INR PTT (Actin FS) VBG pH POC VBG pCO2 POC VBG pO2 VBG HCO3 VBG O2 Sat (Katie) VBG Base Excess Sodium Potassium Chloride Carbon Dioxide Anion Gap BUN Creatinine Est GFR (CKD-EPI)AfAm Est GFR (CKD-EPI)NonAf POC Glucometer 50 Random Glucose Calcium Total Bilirubin Direct Bilirubin AST ALT Alkaline Phosphatase Ammonia 49.40 H Troponin I B-Natriuretic Peptide Total Protein Albumin Urine Color Urine Appearance Urine pH Ur Specific [place] Urine Protein Urine Glucose (UA) Urine Ketones Urine Blood Urine Nitrite Urine Bilirubin Urine Urobilinogen Ur Leukocyte Esterase Urine WBC (Auto) Urine RBC (Auto) Urine Casts (Auto) U Epithel Cells (Auto) Urine Bacteria (Auto) 06/17/19 06/17/19 06/17/19 13:00 13:00 13:00 WBC RBC Hgb Hct MCV MCH MCHC RDW Plt Count MPV Absolute Neuts (auto) Neutrophils % Lymphocytes % Monocytes % Eosinophils % Basophils % Nucleated RBC % PT with INR INR PTT (Actin FS) 35.0 VBG pH 7.35 POC VBG pCO2 47.2 POC VBG pO2 32.2 VBG HCO3 25.4 VBG O2 Sat (Katie) 51.2 L VBG Base Excess 0.2 Sodium 141 Potassium 3.5 Chloride 106 Carbon Dioxide 27 Anion Gap 8 BUN 24.7 H Creatinine 1.3 Est GFR (CKD-EPI)AfAm 64.07 Est GFR (CKD-EPI)NonAf 55.28 POC Glucometer Random Glucose 80 Calcium 8.7 Total Bilirubin 2.0 H Direct Bilirubin 0.8 H AST 64 H ALT 34 Alkaline Phosphatase 133 H Ammonia Troponin I < 0.02 B-Natriuretic Peptide 1379.3 H Total Protein 7.3 Albumin 3.8 Urine Color Urine Appearance Urine pH Ur Specific [place] Urine Protein Urine Glucose (UA) Urine Ketones Urine Blood Urine Nitrite Urine Bilirubin Urine Urobilinogen Ur Leukocyte Esterase Urine WBC (Auto) Urine RBC (Auto) Urine Casts (Auto) U Epithel Cells (Auto) Urine Bacteria (Auto) 06/17/19 06/17/19 06/17/19 13:00 13:35 14:00 WBC RBC Hgb Hct MCV MCH MCHC RDW Plt Count MPV Absolute Neuts (auto) Neutrophils % Lymphocytes % Monocytes % Eosinophils % Basophils % Nucleated RBC % PT with INR 17.90 H INR 1.51 H PTT (Actin FS) VBG pH POC VBG pCO2 POC VBG pO2 VBG HCO3 VBG O2 Sat (Katie) VBG Base Excess Sodium Potassium Chloride Carbon Dioxide Anion Gap BUN Creatinine Est GFR (CKD-EPI)AfAm Est GFR (CKD-EPI)NonAf POC Glucometer 74 Random Glucose Calcium Total Bilirubin Direct Bilirubin AST ALT Alkaline Phosphatase Ammonia Troponin I B-Natriuretic Peptide Total Protein Albumin Urine Color Yellow Urine Appearance Clear Urine pH 5.5 Ur Specific [place] 1.006 L Urine Protein 1+ H Urine Glucose (UA) Negative Urine Ketones Negative Urine Blood 2+ H Urine Nitrite Negative Urine Bilirubin Negative Urine Urobilinogen 0.2 Ur Leukocyte Esterase Trace Urine WBC (Auto) 2 Urine RBC (Auto) 6 Urine Casts (Auto) 2 U Epithel Cells (Auto) 0.4 Urine Bacteria (Auto) 3.0 06/17/19 06/17/19 14:27 16:02 WBC RBC Hgb Hct MCV MCH MCHC RDW Plt Count MPV Absolute Neuts (auto) Neutrophils % Lymphocytes % Monocytes % Eosinophils % Basophils % Nucleated RBC % PT with INR INR PTT (Actin FS) VBG pH POC VBG pCO2 POC VBG pO2 VBG HCO3 VBG O2 Sat (Katie) VBG Base Excess Sodium Potassium Chloride Carbon Dioxide Anion Gap BUN Creatinine Est GFR (CKD-EPI)AfAm Est GFR (CKD-EPI)NonAf POC Glucometer 69 136 Random Glucose Calcium Total Bilirubin Direct Bilirubin AST ALT Alkaline Phosphatase Ammonia Troponin I B-Natriuretic Peptide Total Protein Albumin Urine Color Urine Appearance Urine pH Ur Specific [place] Urine Protein Urine Glucose (UA) Urine Ketones Urine Blood Urine Nitrite Urine Bilirubin Urine Urobilinogen Ur Leukocyte Esterase Urine WBC (Auto) Urine RBC (Auto) Urine Casts (Auto) U Epithel Cells (Auto) Urine Bacteria (Auto) Current Medications Generic Name Dose Route Start Last Admin Trade Name Freq PRN Reason Stop Dose Admin Donepezil HCl 5 mg 06/18/19 10:00 Aricept - PO DAILY [facility] Furosemide 40 mg 06/17/19 22:00 Lasix - PO BID [facility] Gabapentin 300 mg 06/18/19 10:00 Neurontin - PO DAILY [facility] Dextrose/Sodium Chloride 1,000 mls @ 75 mls/hr 06/17/19 16:00 D5-Ns - IV ASDIR [facility] Insulin Aspart 0 vial 06/17/19 16:30 Novolog Vial Sliding Scale - SQ ACHS [facility] Protocol Lactulose 20 gm 06/17/19 16:00 Cephulac (Oral Use) PO Q8H [facility] Nadolol 40 mg 06/18/19 10:00 Corgard - PO DAILY [facility] Non-Formulary Medication 1 puff 06/17/19 22:00 Fluticasone/Salmeterol [Advair Hfa 115-21 Mcg Inhaler] PO BID [facility] Non-Formulary Medication 100 mg 06/18/19 10:00 Spironolactone [Spironolactone] PO DAILY [facility] Pantoprazole Sodium 40 mg 06/18/19 10:00 Protonix - PO DAILY [facility] Rifaximin 550 mg 06/17/19 22:00 Xifaxan - PO BID [facility] Home Medications Medication Instructions Recorded Gabapentin 300 mg PO DAILY 11/26/18 Glipizide [Glipizide ER] 10 mg PO BID 11/26/18 Sitagliptin Phosphate [Januvia] 50 mg PO DAILY 11/26/18 Pantoprazole Sodium [Protonix -] 40 mg PO DAILY #30 tablet.ec 11/30/18 Lactulose 20 gm PO Q8H #2700 ml 02/09/19 Fluticasone/Salmeterol [Advair Hfa 1 puff PO BID 03/11/19 115-21 Mcg Inhaler] Furosemide [Lasix] 40 mg PO BID 03/11/19 Donepezil HCl [Aricept -] 5 mg PO DAILY #15 tablet 03/14/19 Miscellaneous Medical Supply 1 [place] [facility] [place] [Outpatient Order] Nadolol [Corgard -] 40 mg PO DAILY #30 tablet 03/14/19 Rifaximin [Xifaxan -] 550 mg PO BID #30 tablet 03/14/19 Spironolactone 100 mg PO DAILY #30 tablet 03/14/19 ASSESSMENT/PLAN 68 year old male with history of dementia, DM 2, HCV, Liver cirrhosis, Asthma, recent presentation to [facility] with encephalopathy and ascites requiring paracentesis presents with altered mental status at home - found to be somnolent and intermittently responsive by . No chest pain/lightheadedness/ dyspnea. No fall/HI. Capillary glucose on EMS arrival was 46. 1. Acute Metabolic Encephalopaty secondary to Hypoglycemia - on Januvia and Glipizide form DM 2 resolved, currently AAO x 3. Received D50 in ED and placed on D5 Fingersticks in 70 - Will give D5-1/2NS overnight Will cover with sliding scale Novolog Glipizide and Januvia held. Endocrinology consult 2. 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 Ammonia on high side at 49 Continue Spironolactone, Nadolol, Lactulose, Rifaximin, Lasix. 3. Asthma - stable. No evidence of exacerbation. 4. Anemia/Thrombocytopenia - secondary to Cirrhosis No bruising/bleeding. Will monitor. Anemia work-up requested. 5, Hx of Dementia - Continue Donepezil. DVT Px - SCDs. GI Px - PPI
[2019-06-17] MEDS: LACTULOSE 20 GM/30 ML UDC (FOR ORAL USE ONLY) PO SCH (17:30)
[2019-06-17] MEDS: DEXTROSE 5%-NORMAL SALINE 1,000 ML IV SCH ×2 (17:43→18:10)
[2019-06-17] MEDS: INSULIN SLIDING SCALE (NOVOLOG) 1 VIAL SQ SCH (17:43)
[2019-06-17 18:01] VITALS: BMI 32.7
[2019-06-18] MEDS: INSULIN SLIDING SCALE (NOVOLOG) 1 VIAL SQ SCH ×5 (00:14→23:44)
[2019-06-18] MEDS: LACTULOSE 20 GM/30 ML UDC (FOR ORAL USE ONLY) PO SCH ×5 (00:15→23:55)
[2019-06-18] MEDS: FUROSEMIDE 40 MG TABLET (FP) PO SCH ×3 (00:15→22:14)
[2019-06-18] MEDS: RIFAXIMIN 550 MG TABLET (UD) PO SCH ×3 (00:15→22:14)
[2019-06-18] MEDS: PATIENT'S OWN MEDICATION (NON-FORMULARY) (Fluticasone/Salmeterol [Advair Hfa 115-21 Mcg In PO SCH ×3 (01:53→22:13)
[2019-06-18 08:21] LABS: BASO % 0.7 % (0-2.0); EOS % 2.9 % (0-4.5); HEMATOCRIT 24.4 % (35.4-49); HEMOGLOBIN 8.2 GM/dL (11.7-16.9); LYMPH % 16.3 % (8-40); MCH 30.4 pg (25.7-33.7); MCHC 33.4 g/dl (32.0-35.9); MEAN PLT VOLUME 9.1 fl (7.5-11.1); MONO % 7.1 % (3.8-10.2); PLATELET COUNT 51 K/MM3 (134-434); RBC 2.68 M/mm3 (4.00-5.60); RDW 18.6 % (11.9-15.9); WHITE BLOOD COUNT 3.9 K/mm3 (4.0-10.0)
--- NOTE | 2019-06-18 09:12 | CONSULT ---
Consult Consult Specialty:: Endocrinology Referred by:: Maira Cortez MD Reason for Consultation:: Hypoglycemia - History of Present Illness Chief Complaint: Hypoglycemia, AMS History of Present Illness: This is a 68 y/o male with h/o T2DM for 30 years, on Insulin for a 20 years, HCV , cirrhosis, asthma previous episodes of hepatic encephalopathy was brought to the ED after he was found to be altered at home by his . She called EMS, when EMS arrived his BGM was 46 and he was given D10 x2- he states that he does not follow with an breeder service technician and this happens very frequently to him; he was in the hospital at [place] last week with the same exact presentation also at that time his abdomen was very distended and her needed a paracentesis as he also presented with hepatic encephalopathy at the time. Pt referred for management of DM. Talked to over the phone. Last dose of Tresiba 60 units taken 2 days ago in the morning. Not sure when the last dose of Glipzide was. FS at home usually 200s as per pt but has been low recently. Has occasional blurred vision. Hasn't seen Ophthalmology for more than a year. Denies paresthesia of feet. BGM upon arrival 50 then 74 then 69. 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 History of Recent Travel: No Home Medications - Allergies Allergies/Adverse Reactions: Allergies Allergy/AdvReac Type Severity Reaction Status Date / Time shellfish derived Allergy Verified 03/10/19 13:00 - Home Medications Home Medications: Ambulatory Orders Gabapentin 300 mg PO DAILY 11/26/18 Glipizide [Glipizide ER] 10 mg PO BID 11/26/18 Sitagliptin Phosphate [Januvia] 50 mg PO DAILY 11/26/18 Pantoprazole Sodium [Protonix -] 40 mg PO DAILY #30 tablet.ec 11/30/18 Lactulose 20 gm PO Q8H #2700 ml 02/09/19 Fluticasone/Salmeterol [Advair Hfa 115-21 Mcg Inhaler] 1 puff PO BID 03/11/19 Furosemide [Lasix] 40 mg PO BID 03/11/19 Donepezil HCl [Aricept -] 5 mg PO DAILY #15 tablet 03/14/19 Miscellaneous Medical Supply [Outpatient Order] 1 each ASDIR #1 misc Nadolol [Corgard -] 40 mg PO DAILY #30 tablet 03/14/19 Rifaximin [Xifaxan -] 550 mg PO BID #30 tablet 03/14/19 Spironolactone 100 mg PO DAILY #30 tablet 03/14/19 Family Disease History - Family Disease History Family Disease History: Diabetes: Grandparent, Other: Father (: 50's: Diabetic complications), Mother (: unclear when as she was not in his life) , Brother (3, 1 he knew and is healthy), Daughter (3, healthy) Review of Systems - Review of Systems Constitutional: reports: No Symptoms Eyes: reports: No Symptoms HENT: reports: No Symptoms Neck: reports: No Symptoms Cardiovascular: reports: No Symptoms Respiratory: reports: No Symptoms Gastrointestinal: reports: No Symptoms Genitourinary: reports: No Symptoms Musculoskeletal: reports: No Symptoms Neurological: reports: No Symptoms Physical Exam Vital Signs: Vital Signs Temperature 98.7 F 06/18/19 06:00 Pulse Rate 84 06/18/19 06:00 Respiratory Rate 18 06/18/19 06:00 Blood Pressure 135/73 06/18/19 06:00 O2 Sat by Pulse Oximetry (%) 99 06/17/19 21:00 Constitutional: Yes: No Distress, Calm Eyes: Yes: Conjunctiva Clear, EOM Intact HENT: Yes: Atraumatic, Normocephalic Neck: Yes: Supple, Trachea Midline Cardiovascular: Yes: Regular Rate and Rhythm Respiratory: Yes: Regular, CTA Bilaterally Gastrointestinal: Yes: Normal Bowel Sounds, Soft Extremities: Yes: Other (Edema) Edema: Yes Neurological: Yes: Alert, Oriented Labs: CBC, BMP 06/18/19 07:30 06/17/19 13:00 Problem List - Problems (1) Hypoglycemia Code(s): E16.2 - HYPOGLYCEMIA, UNSPECIFIED (2) Cirrhosis Code(s): K74.60 - UNSPECIFIED CIRRHOSIS OF LIVER Qualifiers: (3) Altered mental status Code(s): R41.82 - ALTERED MENTAL STATUS, UNSPECIFIED (4) Hepatitis C Code(s): B19.20 - UNSPECIFIED VIRAL HEPATITIS C WITHOUT HEPATIC COMA Qualifiers: Viral hepatitis chronicity: chronic Hepatic coma status: without hepatic coma Qualified Code(s): B18.2 - Chronic viral hepatitis C Assessment/Plan AP: AMS sec to Hypoglycemia: Prolonged hypoglycemia probably sec to prolonged action of Glipizide in pt with cirrhosis T2DM Cirrhosis of liver Asthma BGMJ Q4 hr Continue D5NS, if blood sugar persist to be <100, may change to D10 to avoid volume overload in pt with Cirrhosis. Hold all hypoglycemic agents for now Discussd with family members need to stop Glipixide ER and adjust dose of Tresiba to avoid further episode of hypoglycemia. Pt has prescription of Tresiba 60 units daily and Levemir 50 units daily. Levemir was discontinued by his MD recently. Discussed pt will be discharged on Tresiba daily and Novolog premeals. Will F/u
[2019-06-18] MEDS: DONEPEZIL HCL 5 MG TABLET (FP) PO SCH (09:29)
[2019-06-18] MEDS: PANTOPRAZOLE 40 MG TABLET (FP) PO SCH (09:29)
[2019-06-18] MEDS: GABAPENTIN 300 MG CAPSULE (FP) PO SCH (09:29)
[2019-06-18 09:51] LABS: ALBUMIN 3.6 g/dl (3.4-5.0); BILIRUBIN,TOTAL 2.1 mg/dL (0.2-1); BLOOD UREA NITROGEN 24.6 mg/dL (7-18); CALCIUM 8.9 mg/dL (8.5-10.1); CREATININE 1.4 mg/dL (0.55-1.3); POTASSIUM 3.9 mmol/L (3.5-5.1); TOT PROT 7.1 g/dl (6.4-8.2)
[2019-06-18] MEDS ORDERED: NADOLOL 40 MG TABLET (FP) PO SCH (10:00)
--- NOTE | 2019-06-18 11:47 | EKG ---
Test Reason : Blood Pressure : / mmHG Vent. Rate : 076 BPM Atrial Rate : 076 BPM P-R Int : 140 ms QRS Dur : 150 ms QT Int : 464 ms P-R-T Axes : 028 014 109 degrees QTc Int : 522 ms NORMAL SINUS RHYTHM LEFT BUNDLE BRANCH BLOCK ABNORMAL ECG WHEN COMPARED WITH ECG OF 10-MAR-2019 13:56, NO SIGNIFICANT CHANGE WAS FOUND Confirmed by MARSHALL FINK MD ([id number]) on 06/18/2019 11:47:04 AM Referred By: Confirmed By:MARSHALL FINK MD
[2019-06-18] MEDS: PATIENT'S OWN MEDICATION (NON-FORMULARY) (Spironolactone [Spironolactone] 100 MG) PO SCH (13:48)
[2019-06-18] MEDS ORDERED: PT OWN MED DRAWER 7, Y5N ONE (14:42)
--- NOTE | 2019-06-18 14:55 | PN ---
Physical Exam: SUBJECTIVE: Patient seen and examined. No acute complaints at this time lying comfortably in bed. Denies dizziness/ nausea/ vomiting. OBJECTIVE: Vital Signs Period Temp Pulse Resp BP Sys/Shen Pulse Ox Last 24 Hr 98.0 F-98.7 F 74-84 18-18 128-135/64-73 99-99 GENERAL: The patient is awake, alert, and fully oriented, in no acute distress. LUNGS: Breath sounds equal, clear to auscultation bilaterally, no wheezes, no crackles, no accessory muscle use. HEART: Regular rate and rhythm, S1, S2 without murmur, rub or gallop. ABDOMEN: Soft, nontender, nondistended, normoactive bowel sounds, no guarding EXTREMITIES: 2+ pulses, warm, well-perfused. B/l LE pitting edema 1+. B/l LE chronic venous stasis changes. NEURO: No asterixis. No dysmetria/ dydiadokinesia. SKIN: Warm, dry, normal turgor, no rashes or lesions noted Laboratory Results - last 24 hr Laboratory Last Values WBC 3.9 K/mm3 (4.0-10.0) L 06/18/19 07:30 RBC 2.68 M/mm3 (4.00-5.60) L 06/18/19 07:30 Hgb 8.2 GM/dL (11.7-16.9) L 06/18/19 07:30 Hct 24.4 % (35.4-49) L 06/18/19 07:30 MCV 91.0 fl (80-96) 06/18/19 07:30 MCH 30.4 pg (25.7-33.7) 06/18/19 07:30 MCHC 33.4 g/dl (32.0-35.9) 06/18/19 07:30 RDW 18.6 % (11.9-15.9) H 06/18/19 07:30 Plt Count 51 K/MM3 (134-434) L 06/18/19 07:30 MPV 9.1 fl (7.5-11.1) 06/18/19 07:30 Absolute Neuts (auto) 2.8 K/mm3 (1.5-8.0) 06/18/19 07:30 Neutrophils % 73.0 % (42.8-82.8) 06/18/19 07:30 Lymphocytes % 16.3 % (8-40) D 06/18/19 07:30 Monocytes % 7.1 % (3.8-10.2) 06/18/19 07:30 Eosinophils % 2.9 % (0-4.5) D 06/18/19 07:30 Basophils % 0.7 % (0-2.0) 06/18/19 07:30 Nucleated RBC % 0 % (0-0) 06/18/19 07:30 PT with INR 17.90 SEC (9.7-13.0) H 06/17/19 13:00 INR 1.51 (0.83-1.09) H 06/17/19 13:00 PTT (Actin FS) 35.0 SECONDS (25.2-36.5) 06/17/19 13:00 VBG pH 7.35 (7.31-7.41) 06/17/19 13:00 POC VBG pCO2 47.2 mmHg (41-51) 06/17/19 13:00 POC VBG pO2 32.2 mmHg (30-40) 06/17/19 13:00 VBG HCO3 25.4 mmol/L (23-29) 06/17/19 13:00 VBG O2 Sat (Katie) 51.2 % (70-80) L 06/17/19 13:00 VBG Base Excess 0.2 meq/l (-2-2) 06/17/19 13:00 Sodium 145 mmol/L (136-145) 06/18/19 07:30 Potassium 3.9 mmol/L (3.5-5.1) 06/18/19 07:30 Chloride 110 mmol/L (98-107) H 06/18/19 07:30 Carbon Dioxide 29 mmol/L (21-32) 06/18/19 07:30 Anion Gap 7 MMOL/L (8-16) L 06/18/19 07:30 BUN 24.6 mg/dL (7-18) H 06/18/19 07:30 Creatinine 1.4 mg/dL (0.55-1.3) H 06/18/19 07:30 Est GFR (CKD-EPI)AfAm 58.58 06/18/19 07:30 Est GFR (CKD-EPI)NonAf 50.54 06/18/19 07:30 POC Glucometer 76 UNITS (80-120) 06/18/19 12:01 Random Glucose 73 mg/dL (74-106) L 06/18/19 07:30 Hemoglobin A1c % < 5.0 % (4.2-6.3) 06/18/19 07:30 Calcium 8.9 mg/dL (8.5-10.1) 06/18/19 07:30 Magnesium 2.0 mg/dL (1.8-2.4) 06/18/19 07:30 Iron 30 ug/dL (50-175) L 06/18/19 07:30 Ferritin 46.2 ng/ml (8-388) 06/18/19 07:30 Total Bilirubin 2.1 mg/dL (0.2-1) H 06/18/19 07:30 Direct Bilirubin 0.8 mg/dL (0.0-0.2) H 06/17/19 13:00 AST 63 U/L (15-37) H 06/18/19 07:30 ALT 32 U/L (13-61) 06/18/19 07:30 Alkaline Phosphatase 135 U/L (45-117) H 06/18/19 07:30 Ammonia 49.40 umol/L (11-32) H 06/17/19 13:00 Troponin I < 0.02 ng/ml (0.00-0.05) 06/17/19 13:00 B-Natriuretic Peptide 1379.3 pg/ml (5-125) H 06/17/19 13:00 Total Protein 7.1 g/dl (6.4-8.2) 06/18/19 07:30 Albumin 3.6 g/dl (3.4-5.0) 06/18/19 07:30 Urine Color Yellow 06/17/19 14:00 Urine Appearance Clear 06/17/19 14:00 Urine pH 5.5 (5.0-8.0) 06/17/19 14:00 Ur Specific [place] 1.006 (1.010-1.035) L 06/17/19 14:00 Urine Protein 1+ (NEGATIVE) H 06/17/19 14:00 Urine Glucose (UA) Negative (NEGATIVE) 06/17/19 14:00 Urine Ketones Negative (NEGATIVE) 06/17/19 14:00 Urine Blood 2+ (NEGATIVE) H 06/17/19 14:00 Urine Nitrite Negative (NEGATIVE) 06/17/19 14:00 Urine Bilirubin Negative (NEGATIVE) 06/17/19 14:00 Urine Urobilinogen 0.2 mg/dL (0.2-1.0) 06/17/19 14:00 Ur Leukocyte Esterase Trace (NEGATIVE) 06/17/19 14:00 Urine WBC (Auto) 2 /hpf (0-5) 06/17/19 14:00 Urine RBC (Auto) 6 /hpf (0-4) 06/17/19 14:00 Urine Casts (Auto) 2 /lpf (0-8) 06/17/19 14:00 U Epithel Cells (Auto) 0.4 /HPF (0-5/HPF) 06/17/19 14:00 Urine Bacteria (Auto) 3.0 /hpf (NEGATIVE) 06/17/19 14:00 Blood Type A POSITIVE 06/17/19 19:00 Antibody Screen Negative 06/17/19 19:00 Active Medications Current Medications Donepezil HCl (Aricept -) 5 mg PO DAILY [facility] Last Admin: 06/18/19 09:29 Dose: 5 mg Furosemide (Lasix -) 40 mg PO BID [facility] Last Admin: 06/18/19 09:29 Dose: 40 mg Gabapentin (Neurontin -) 300 mg PO DAILY [facility] Last Admin: 06/18/19 09:29 Dose: 300 mg Dextrose/Sodium Chloride (D5-Ns -) 1,000 mls @ 75 mls/hr IV ASDIR [facility] Last Admin: 06/17/19 18:10 Dose: 75 mls/hr Insulin Aspart (Novolog Vial Sliding Scale -) 0 vial SQ ACHS [facility]; Protocol Last Admin: 06/18/19 12:12 Dose: Not Given Lactulose (Cephulac (Oral Use)) 20 gm PO Q8H [facility] Last Admin: 06/18/19 09:33 Dose: 20 gm Nadolol (Corgard -) 40 mg PO DAILY [facility] Non-Formulary Medication (Fluticasone/Salmeterol [Advair Hfa 115-21 Mcg Inhaler] ) 1 puff PO BID [facility] Last Admin: 06/18/19 13:48 Dose: Not Given Non-Formulary Medication (Spironolactone [Spironolactone]) 100 mg PO DAILY [facility] Last Admin: 06/18/19 13:48 Dose: Not Given Pantoprazole Sodium (Protonix -) 40 mg PO DAILY [facility] Last Admin: 06/18/19 09:29 Dose: 40 mg Rifaximin (Xifaxan -) 550 mg PO BID [facility] Last Admin: 06/18/19 09:29 Dose: 550 mg ASSESSMENT/PLAN: 68 y.o. M PMH DM, HCV, cirrhosis, asthma, dementia, frequent episodes of hypoglycemia presenting for hypoglycemic episode #Acute metabolic encephalopathy 2/2 hypoglycemia -S/p D50W 50g IV push in ED; on D5NS now -Holding home DM meds (Januvia, glipizide) -AOx3 now -HbA1c <5% -BGMs, ISS -Endocrine (Dr. Cherry): if BGM <100, change to D10 to avoid vol overload in pt w/ cirrhosis. Will d/c glipizide on d/c, restart Tresiba 60U daily and novolog on d/c. #Cirrhosis 2/2 HCV -Ammonia elevated 49.4 -C/w spironolactone, rifaximin, lactulose -Lasix 40 PO BID -Thrombocytopenic 2/2 cirrhosis- no bleeding/bruising -No signs of hepatic encephalopathy #Asthma -Satting well on RA -Advair #Anemia -F/u iron studies, folate, B12 #Dementia -Donepezil #FEN -No standing fluids -Monitor lytes -Diabetic diet #DVT PPX -SCDs - Visit type - Emergency Visit Emergency Visit: Yes ED Registration Date: 06/17/19 Care time: The patient presented to the Emergency Department on the above date and was hospitalized for further evaluation of their emergent condition. - New Patient This patient is new to me today: Yes Date on this admission: 06/18/19 - Critical Care Critical Care patient: No ATTENDING PHYSICIAN STATEMENT I saw and evaluated the patient. I reviewed the resident's note and discussed the case with the resident. I agree with the resident's findings and plan as documented. SUBJECTIVE: OBJECTIVE: ASSESSMENT AND PLAN:
[2019-06-18] MEDS ORDERED: SODIUM CHLORIDE 0.45% 1,000 ML IV ONE (15:29)
[2019-06-18] MEDS ORDERED: DEXTROSE 5%-0.45% SALINE 1,000 ML IV SCH (15:30)
--- NOTE | 2019-06-18 16:43 | PN ---
Teaching Attending Note Name of Resident: Stephany Ramsey ATTENDING PHYSICIAN STATEMENT I saw and evaluated the patient. I reviewed the resident's note and discussed the case with the resident. I agree with the resident's findings and plan as documented. SUBJECTIVE: Feels well, no lightheadedness/dizziness/visual disturbance. OBJECTIVE: Afebrile, Hemodynamically Stable. Low capillary glucose readings overnight to 40s. Last Vital Signs Temp Pulse Resp BP Pulse Ox 98.7 F 87 20 128/65 99 06/18/19 06:00 06/18/19 15:55 06/18/19 15:55 06/18/19 15:55 06/18/19 09:00 Heart - S1 S2, RRR Lungs - Clear to auscultation Abdomen - soft, non-tender. Bowel Sounds normal. Extremities - LE Edema +, chronic venous stasis. Neuro - AAO x 3. Tone/Power normal all 4 extremities. Laboratory Results - last 24 hr 06/17/19 06/17/19 06/17/19 17:41 19:00 23:39 WBC RBC Hgb Hct MCV MCH MCHC RDW Plt Count MPV Absolute Neuts (auto) Neutrophils % Lymphocytes % Monocytes % Eosinophils % Basophils % Nucleated RBC % Sodium Potassium Chloride Carbon Dioxide Anion Gap BUN Creatinine Est GFR (CKD-EPI)AfAm Est GFR (CKD-EPI)NonAf POC Glucometer 84 46 Random Glucose Hemoglobin A1c % Calcium Magnesium Iron Ferritin Total Bilirubin AST ALT Alkaline Phosphatase Total Protein Albumin Blood Type A POSITIVE Antibody Screen Negative 06/18/19 06/18/19 06/18/19 00:12 01:31 07:05 WBC RBC Hgb Hct MCV MCH MCHC RDW Plt Count MPV Absolute Neuts (auto) Neutrophils % Lymphocytes % Monocytes % Eosinophils % Basophils % Nucleated RBC % Sodium Potassium Chloride Carbon Dioxide Anion Gap BUN Creatinine Est GFR (CKD-EPI)AfAm Est GFR (CKD-EPI)NonAf POC Glucometer 50 61 76 Random Glucose Hemoglobin A1c % Calcium Magnesium Iron Ferritin Total Bilirubin AST ALT Alkaline Phosphatase Total Protein Albumin Blood Type Antibody Screen 06/18/19 06/18/19 06/18/19 07:30 07:30 07:30 WBC 3.9 L RBC 2.68 L Hgb 8.2 L Hct 24.4 L MCV 91.0 MCH 30.4 MCHC 33.4 RDW 18.6 H Plt Count 51 L MPV 9.1 Absolute Neuts (auto) 2.8 Neutrophils % 73.0 Lymphocytes % 16.3 D Monocytes % 7.1 Eosinophils % 2.9 D Basophils % 0.7 Nucleated RBC % 0 Sodium 145 Potassium 3.9 Chloride 110 H Carbon Dioxide 29 Anion Gap 7 L BUN 24.6 H Creatinine 1.4 H Est GFR (CKD-EPI)AfAm 58.58 Est GFR (CKD-EPI)NonAf 50.54 POC Glucometer Random Glucose 73 L Hemoglobin A1c % < 5.0 Calcium 8.9 Magnesium 2.0 Iron 30 L Ferritin 46.2 Total Bilirubin 2.1 H AST 63 H ALT 32 Alkaline Phosphatase 135 H Total Protein 7.1 Albumin 3.6 Blood Type Antibody Screen 06/18/19 06/18/19 06/18/19 11:24 11:35 12:01 WBC RBC Hgb Hct MCV MCH MCHC RDW Plt Count MPV Absolute Neuts (auto) Neutrophils % Lymphocytes % Monocytes % Eosinophils % Basophils % Nucleated RBC % Sodium Potassium Chloride Carbon Dioxide Anion Gap BUN Creatinine Est GFR (CKD-EPI)AfAm Est GFR (CKD-EPI)NonAf POC Glucometer 51 55 76 Random Glucose Hemoglobin A1c % Calcium Magnesium Iron Ferritin Total Bilirubin AST ALT Alkaline Phosphatase Total Protein Albumin Blood Type Antibody Screen 06/18/19 06/18/19 15:28 16:37 WBC RBC Hgb Hct MCV MCH MCHC RDW Plt Count MPV Absolute Neuts (auto) Neutrophils % Lymphocytes % Monocytes % Eosinophils % Basophils % Nucleated RBC % Sodium Potassium Chloride Carbon Dioxide Anion Gap BUN Creatinine Est GFR (CKD-EPI)AfAm Est GFR (CKD-EPI)NonAf POC Glucometer 172 175 Random Glucose Hemoglobin A1c % Calcium Magnesium Iron Ferritin Total Bilirubin AST ALT Alkaline Phosphatase Total Protein Albumin Blood Type Antibody Screen Current Medications Generic Name Dose Route Start Last Admin Trade Name Freq PRN Reason Stop Dose Admin Donepezil HCl 5 mg 06/18/19 10:00 06/18/19 09:29 Aricept - PO 5 mg DAILY [facility] Administration Furosemide 40 mg 06/17/19 22:00 06/18/19 09:29 Lasix - PO 40 mg BID [facility] Administration Gabapentin 300 mg 06/18/19 10:00 06/18/19 09:29 Neurontin - PO 300 mg DAILY [facility] Administration Dextrose/Sodium Chloride 1,000 mls @ 75 mls/hr 06/18/19 15:30 D5-1/2ns - IV ASDIR [facility] Sodium Chloride 1,000 mls @ 500 mls/hr 06/18/19 15:29 1/2 Normal Saline IV 06/18/19 17:28 ONCE ONE Insulin Aspart 0 vial 06/17/19 16:30 06/18/19 12:12 Novolog Vial Sliding Scale - SQ Not Given ACHS [facility] Protocol Lactulose 20 gm 06/17/19 16:00 06/18/19 09:33 Cephulac (Oral Use) PO 20 gm Q8H [facility] Administration Nadolol 40 mg 06/18/19 13:48 Corgard - PO DAILY [facility] Non-Formulary Medication 1 puff 06/17/19 22:00 06/18/19 13:48 Fluticasone/Salmeterol [Advair Hfa 115-21 Mcg Inhaler] PO Not Given BID [facility] Non-Formulary Medication 100 mg 06/18/19 10:00 06/18/19 13:48 Spironolactone [Spironolactone] PO Not Given DAILY [facility] Pantoprazole Sodium 40 mg 06/18/19 10:00 06/18/19 09:29 Protonix - PO 40 mg DAILY [facility] Administration Rifaximin 550 mg 06/17/19 22:00 06/18/19 09:29 Xifaxan - PO 550 mg BID [facility] Administration Home Medications Medication Instructions Recorded Gabapentin 300 mg PO DAILY 11/26/18 Glipizide [Glipizide ER] 10 mg PO BID 11/26/18 Sitagliptin Phosphate [Januvia] 50 mg PO DAILY 11/26/18 Pantoprazole Sodium [Protonix -] 40 mg PO DAILY #30 tablet.ec 11/30/18 Lactulose 20 gm PO Q8H #2700 ml 02/09/19 Fluticasone/Salmeterol [Advair Hfa 1 puff PO BID 03/11/19 115-21 Mcg Inhaler] Furosemide [Lasix] 40 mg PO BID 03/11/19 Donepezil HCl [Aricept -] 5 mg PO DAILY #15 tablet 03/14/19 Miscellaneous Medical Supply 1 each ASDIR #1 misc 03/14/19 [Outpatient Order] Nadolol [Corgard -] 40 mg PO DAILY #30 tablet 03/14/19 Rifaximin [Xifaxan -] 550 mg PO BID #30 tablet 03/14/19 Spironolactone 100 mg PO DAILY #30 tablet 03/14/19 ASSESSMENT/PLAN 68 year old male with history of dementia, DM 2, HCV, Liver cirrhosis, Asthma, recent presentation to [facility] with encephalopathy and ascites requiring paracentesis presents with altered mental status at home - found to be somnolent and intermittently responsive by . No chest pain/lightheadedness/ dyspnea. No fall/HI. Capillary glucose on EMS arrival was 46. 1. Acute Metabolic Encephalopaty secondary to Hypoglycemia - normally n Januvia , Glipizide, Tresiba for DM 2 AMS resolved, currently AAO x 3. still having hypoglycemia on capillary glucose checks. Received D50 overnight for FS in 40s. Continue D5-1/2NS overnight Glipizide/Januvia/Tresiba held. Endocrinology consulted 2. 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 Ammonia on high side at 49 Continue Spironolactone, Nadolol, Lactulose, Rifaximin, Lasix. 3. Asthma - stable. No evidence of exacerbation. 4. Anemia/Thrombocytopenia - secondary to Cirrhosis No bruising/bleeding. Will monitor. Iron 30/ferritin 46. B12/Folate pending. 5, Hx of Dementia - Continue Donepezil. DVT Px - SCDs. GI Px - PPI
[2019-06-18] MEDS: ALBUTEROL SO4 8 GM HFA INHALER IH PRN (23:35)
[2019-06-19] MEDS ORDERED: DEXTROSE 5%-NORMAL SALINE 1,000 ML IV SCH (05:45)
[2019-06-19] MEDS: INSULIN SLIDING SCALE (NOVOLOG) 1 VIAL SQ SCH ×4 (07:06→17:11)
[2019-06-19] MEDS ORDERED: PT OWN MED DRAWER 7, Y5N ONE ×3 (07:15→20:49)
[2019-06-19 08:13] LABS: BASO % 0.5 % (0-2.0); EOS % 3.1 % (0-4.5); HEMATOCRIT 21.9 % (35.4-49); HEMOGLOBIN 7.4 GM/dL (11.7-16.9); LYMPH % 19.4 % (8-40); MCH 30.4 pg (25.7-33.7); MCHC 33.9 g/dl (32.0-35.9); MEAN CELL VOLUME 89.9 fl (80-96); MEAN PLT VOLUME 9.3 fl (7.5-11.1); MONO % 7.4 % (3.8-10.2); NEUT % 69.6 % (42.8-82.8); PLATELET COUNT 48 K/MM3 (134-434); RBC 2.44 M/mm3 (4.00-5.60); WHITE BLOOD COUNT 3.2 K/mm3 (4.0-10.0)
[2019-06-19 08:36] LABS: ALBUMIN 3.2 g/dl (3.4-5.0); BLOOD UREA NITROGEN 23.4 mg/dL (7-18); CALCIUM 8.3 mg/dL (8.5-10.1); CREATININE 1.3 mg/dL (0.55-1.3); MAGNESIUM 1.9 mg/dL (1.8-2.4); PHOSPHOROUS 3.2 mg/dL (2.5-4.9); POTASSIUM 3.5 mmol/L (3.5-5.1); TOT PROT 6.5 g/dl (6.4-8.2)
[2019-06-19] MEDS: RIFAXIMIN 550 MG TABLET (UD) PO SCH ×2 (10:21→21:40)
[2019-06-19] MEDS: PANTOPRAZOLE 40 MG TABLET (FP) PO SCH (10:21)
[2019-06-19] MEDS: FUROSEMIDE 40 MG TABLET (FP) PO SCH ×2 (10:22→15:17)
[2019-06-19] MEDS: GABAPENTIN 300 MG CAPSULE (FP) PO SCH (10:22)
[2019-06-19] MEDS: DONEPEZIL HCL 5 MG TABLET (FP) PO SCH (10:22)
[2019-06-19] MEDS: LACTULOSE 20 GM/30 ML UDC (FOR ORAL USE ONLY) PO SCH ×3 (10:22→21:40)
[2019-06-19] MEDS ORDERED: SPIRONOLACTONE 25 MG TABLET (FP) PO SCH (11:18)
[2019-06-19] MEDS ORDERED: INSULIN (NOVOLOG) ASPART 100 UNITS/ML 10ML VIAL ONE (12:43)
[2019-06-19] MEDS: SPIRONOLACTONE 25 MG TABLET (FP) PO SCH (12:45)
[2019-06-19] MEDS: NADOLOL 20 MG TABLET (FP) PO SCH (12:47)
--- NOTE | 2019-06-19 13:53 | PN ---
Teaching Attending Note Name of Resident: Stephany Ramsey ATTENDING PHYSICIAN STATEMENT I saw and evaluated the patient. I reviewed the resident's note and discussed the case with the resident. I agree with the resident's findings and plan as documented. SUBJECTIVE: Feels well, no lightheadedness/dizziness/visual disturbance. Wants to go home. OBJECTIVE: Afebrile, Hemodynamically Stable. Sugars currently high off insulin. Last Vital Signs Temp Pulse Resp BP Pulse Ox 98.2 F 108 H 20 150/90 98 06/19/19 06:10 06/19/19 06:10 06/19/19 06:10 06/19/19 06:10 06/19/19 09:00 Heart - S1 S2, RRR Lungs - Clear to auscultation Abdomen - soft, non-tender. Bowel Sounds normal. Extremities - LE Edema +, chronic venous stasis. Neuro - AAO x 3. Tone/Power normal all 4 extremities. Laboratory Results - last 24 hr 06/18/19 06/18/19 06/18/19 07:30 15:28 16:37 WBC RBC Hgb Hct MCV MCH MCHC RDW Plt Count MPV Absolute Neuts (auto) Neutrophils % Lymphocytes % Monocytes % Eosinophils % Basophils % Nucleated RBC % Sodium 145 Potassium 3.9 Chloride 110 H Carbon Dioxide 29 Anion Gap 7 L BUN 24.6 H Creatinine 1.4 H Est GFR (CKD-EPI)AfAm 58.58 Est GFR (CKD-EPI)NonAf 50.54 POC Glucometer 172 175 Random Glucose 73 L Calcium 8.9 Phosphorus Magnesium 2.0 Iron 30 L Ferritin 46.2 Total Bilirubin 2.1 H AST 63 H ALT 32 Alkaline Phosphatase 135 H Total Protein 7.1 Albumin 3.6 06/18/19 06/18/19 06/19/19 20:51 23:34 03:26 WBC RBC Hgb Hct MCV MCH MCHC RDW Plt Count MPV Absolute Neuts (auto) Neutrophils % Lymphocytes % Monocytes % Eosinophils % Basophils % Nucleated RBC % Sodium Potassium Chloride Carbon Dioxide Anion Gap BUN Creatinine Est GFR (CKD-EPI)AfAm Est GFR (CKD-EPI)NonAf POC Glucometer 262 291 328 Random Glucose Calcium Phosphorus Magnesium Iron Ferritin Total Bilirubin AST ALT Alkaline Phosphatase Total Protein Albumin 06/19/19 06/19/19 06/19/19 06:33 07:35 07:35 WBC 3.2 L RBC 2.44 L Hgb 7.4 L Hct 21.9 L MCV 89.9 MCH 30.4 MCHC 33.9 RDW 18.0 H Plt Count 48 L MPV 9.3 Absolute Neuts (auto) 2.2 Neutrophils % 69.6 Lymphocytes % 19.4 Monocytes % 7.4 Eosinophils % 3.1 Basophils % 0.5 Nucleated RBC % 0 Sodium 140 Potassium 3.5 Chloride 108 H Carbon Dioxide 27 Anion Gap 5 L BUN 23.4 H Creatinine 1.3 Est GFR (CKD-EPI)AfAm 64.07 Est GFR (CKD-EPI)NonAf 55.28 POC Glucometer 266 Random Glucose 246 H Calcium 8.3 L Phosphorus 3.2 Magnesium 1.9 Iron Ferritin Total Bilirubin 2.0 H AST 56 H ALT 31 Alkaline Phosphatase 135 H Total Protein 6.5 Albumin 3.2 L 06/19/19 11:10 WBC RBC Hgb Hct MCV MCH MCHC RDW Plt Count MPV Absolute Neuts (auto) Neutrophils % Lymphocytes % Monocytes % Eosinophils % Basophils % Nucleated RBC % Sodium Potassium Chloride Carbon Dioxide Anion Gap BUN Creatinine Est GFR (CKD-EPI)AfAm Est GFR (CKD-EPI)NonAf POC Glucometer 275 Random Glucose Calcium Phosphorus Magnesium Iron Ferritin Total Bilirubin AST ALT Alkaline Phosphatase Total Protein Albumin Current Medications Generic Name Dose Route Start Last Admin Trade Name Freq PRN Reason Stop Dose Admin Albuterol Sulfate 2 puff 06/18/19 23:00 06/18/19 23:35 Ventolin Hfa Inhaler - IH 2 puff Q4H PRN Administration SHORT OF BREATH/WHEEZING Donepezil HCl 5 mg 06/18/19 10:00 06/19/19 10:22 Aricept - PO 5 mg DAILY [facility] Administration Furosemide 40 mg 06/19/19 14:00 Lasix - PO BIDLASIX [facility] Gabapentin 300 mg 06/18/19 10:00 06/19/19 10:22 Neurontin - PO 300 mg DAILY [facility] Administration Insulin Aspart 1 vial 06/18/19 22:00 06/19/19 12:46 Novolog Vial Sliding Scale - SQ 6 unit ACHS [facility] Administration Protocol Insulin Detemir 10 units 06/19/19 22:00 Levemir Vial SQ HS [facility] Lactulose 20 gm 06/19/19 16:00 Cephulac (Oral Use) PO TID [facility] Nadolol 40 mg 06/18/19 13:48 06/19/19 12:47 Corgard - PO 40 mg DAILY [facility] Administration Non-Formulary Medication 1 puff 06/19/19 22:00 Fluticasone/Salmeterol [Advair Hfa 115-21 Mcg Inhaler] PO BID [facility] Pantoprazole Sodium 40 mg 06/18/19 10:00 06/19/19 10:21 Protonix - PO 40 mg DAILY [facility] Administration Rifaximin 550 mg 06/17/19 22:00 06/19/19 10:21 Xifaxan - PO 550 mg BID [facility] Administration Spironolactone 100 mg 06/19/19 11:30 06/19/19 12:45 Aldactone - PO 100 mg DAILY [facility] Administration Home Medications Medication Instructions Recorded Gabapentin 300 mg PO DAILY 11/26/18 Glipizide [Glipizide ER] 10 mg PO BID 11/26/18 Sitagliptin Phosphate [Januvia] 50 mg PO DAILY 11/26/18 Pantoprazole Sodium [Protonix -] 40 mg PO DAILY #30 tablet.ec 11/30/18 Lactulose 20 gm PO Q8H #2700 ml 02/09/19 Fluticasone/Salmeterol [Advair Hfa 1 puff PO BID 03/11/19 115-21 Mcg Inhaler] Furosemide [Lasix] 40 mg PO BID 03/11/19 Donepezil HCl [Aricept -] 5 mg PO DAILY #15 tablet 03/14/19 Miscellaneous Medical Supply 1 each [place] [facility] [place] [Outpatient Order] Nadolol [Corgard -] 40 mg PO DAILY #30 tablet 03/14/19 Rifaximin [Xifaxan -] 550 mg PO BID #30 tablet 03/14/19 Spironolactone 100 mg PO DAILY #30 tablet 03/14/19 ASSESSMENT/PLAN 68 year old male with history of dementia, DM 2, HCV, Liver cirrhosis, Asthma, recent presentation to [facility] with encephalopathy and ascites requiring paracentesis presents with altered mental status at home - found to be somnolent and intermittently responsive by . No chest pain/lightheadedness/ dyspnea. No fall/HI. Capillary glucose on EMS arrival was 46. 1. Acute Metabolic Encephalopaty secondary to Hypoglycemia - normally on Januvia , Glipizide, Insulin for DM 2 AMS resolved, currently AAO x 3. Hypoglycemia appears to be resolved. Currently hyperglycemic Fluids held Glipizide/Januvia held. has not take tresiba for several months. Will start with Levemir 10 units and novolog sliding scale. Will monitor response to therapy. Endocrinology consulted 2. 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 Ammonia on high side at 49 Continue Spironolactone, Nadolol, Lactulose, Rifaximin, Lasix. 3. Asthma - stable. No evidence of exacerbation. 4. Anemia/Thrombocytopenia - secondary to Cirrhosis No bruising/bleeding. Will monitor. Iron 30/ferritin 46. B12/Folate pending for 3 days. Will re-order. 5, Hx of Dementia - Continue Donepezil. 6. 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 Afebrile, hemodynamically stable. No leukocytosis. Will discuss with ID re: need for treatment as this is likely colonization. DVT Px - SCDs. GI Px - PPI
[2019-06-19] MEDS ORDERED: LACTULOSE 20 GM/30 ML UDC (FOR ORAL USE ONLY) PO SCH (14:00)
--- NOTE | 2019-06-19 14:22 | PN ---
Physical Exam: SUBJECTIVE: Patient seen and examined. No acute events overnight. Denies dizziness/ lightheadedness/ palpitations/ nausea/ vomiting/ dysuria/ hematuria/ diarrhea/ parasthesias/ myalgias. OBJECTIVE: Vital Signs Period Temp Pulse Resp BP Sys/Shen Pulse Ox Last 24 Hr 98.2 F-98.7 F 77-108 20-20 116-158/58-96 98-98 GENERAL: The patient is awake, alert, and fully oriented, in no acute distress. LUNGS: Breath sounds equal, clear to auscultation bilaterally, no wheezes, no crackles, no accessory muscle use. HEART: Regular rate and rhythm, S1, S2 without murmur, rub or gallop. ABDOMEN: Soft, nontender, nondistended, normoactive bowel sounds, no guarding EXTREMITIES: 2+ pulses, warm, well-perfused. B/l LE pitting edema 1+. B/l LE chronic venous stasis changes. NEURO: No asterixis. No dysmetria/ dydiadokinesia. SKIN: Warm, dry, normal turgor, no rashes or lesions noted Laboratory Results - last 24 hr Active Medications Generic Name Dose Route Start Last Admin Trade Name Freq PRN Reason Stop Dose Admin Albuterol Sulfate 2 puff 06/18/19 23:00 06/18/19 23:35 Ventolin Hfa Inhaler - IH 2 puff Q4H PRN Administration SHORT OF BREATH/WHEEZING Donepezil HCl 5 mg 06/18/19 10:00 06/19/19 10:22 Aricept - PO 5 mg DAILY [facility] Administration Furosemide 40 mg 06/19/19 14:00 Lasix - PO BIDLASIX [facility] Gabapentin 300 mg 06/18/19 10:00 06/19/19 10:22 Neurontin - PO 300 mg DAILY [facility] Administration Insulin Aspart 1 vial 06/18/19 22:00 06/19/19 12:46 Novolog Vial Sliding Scale - SQ 6 unit ACHS [facility] Administration Protocol Insulin Detemir 10 units 06/19/19 22:00 Levemir Vial SQ HS [facility] Lactulose 20 gm 06/19/19 16:00 Cephulac (Oral Use) PO TID RE[facility]EL Nadolol 40 mg 06/18/19 13:48 06/19/19 12:47 Corgard - PO 40 mg DAILY [facility] Administration Non-Formulary Medication 1 puff 06/19/19 22:00 Fluticasone/Salmeterol [Advair Hfa 115-21 Mcg Inhaler] PO BID [facility]EL Pantoprazole Sodium 40 mg 06/18/19 10:00 06/19/19 10:21 Protonix - PO 40 mg DAILY [facility] Administration Rifaximin 550 mg 06/17/19 22:00 06/19/19 10:21 Xifaxan - PO 550 mg BID RE[facility]EL Administration Spironolactone 100 mg 06/19/19 11:30 06/19/19 12:45 Aldactone - PO 100 mg DAILY [facility] Administration ASSESSMENT/PLAN: 68 y.o. M PMH DM, HCV, cirrhosis, asthma, dementia, frequent episodes of hypoglycemia presenting for hypoglycemic episode. #Acute metabolic encephalopathy 2/2 hypoglycemia -Currently AOx3 -Started Levemir 10 -Holding home DM meds (Januvia, glipizide) -HbA1c <5% -BGMs, ISS -D/c'd fluids -Endocrine (Dr. Cherry): Will d/c glipizide on d/c, restart Tresiba 60U daily and novolog on d/c. #Asymptomatic bacteruria -Urine cx grew VRE 70,000-80,000 CFU -Dr. Sullivan (ID) consulted- no abx -Contact precautions #Cirrhosis 2/2 HCV -Ammonia elevated 49.4 -C/w spironolactone, rifaximin, lactulose -Lasix 40 PO BID #Thrombocytopenia -Likely 2/2 cirrhosis -no bleeding/bruising -No signs of hepatic encephalopathy #Anemia -F/u iron studies, folate, B12- reordered #Asthma -Satting well on RA -Ventolin #Dementia -Donepezil #FEN -No standing fluids -Monitor lytes -Diabetic diet #DVT PPX -SCDs Visit type - Emergency Visit Emergency Visit: No - New Patient This patient is new to me today: No - Critical Care Critical Care patient: No ATTENDING PHYSICIAN STATEMENT I saw and evaluated the patient. I reviewed the resident's note and discussed the case with the resident. I agree with the resident's findings and plan as documented. SUBJECTIVE: OBJECTIVE: ASSESSMENT AND PLAN:
--- NOTE | 2019-06-19 16:06 | PN ---
Progress Note (short form) - Note Progress Note: Denies any complaints BGM 200s now Off IVF Vital Signs Period Temp Pulse Resp BP Sys/Shen Pulse Ox Last 24 Hr 98.2 F-98.7 F 77-108 20-20 116-158/58-96 98-98 PE: Awake, alert Neck: supple, No JVD PERRL: EOMI Lungs: CTA CVS: S1S2 Abd: Benign Ext: + Edema Neuro: No focal deficit CMP Sodium 140 mmol/L (136-145) 06/19/19 07:35 Potassium 3.5 mmol/L (3.5-5.1) 06/19/19 07:35 Chloride 108 mmol/L (98-107) H 06/19/19 07:35 Carbon Dioxide 27 mmol/L (21-32) 06/19/19 07:35 Anion Gap 5 MMOL/L (8-16) L 06/19/19 07:35 BUN 23.4 mg/dL (7-18) H 06/19/19 07:35 Creatinine 1.3 mg/dL (0.55-1.3) 06/19/19 07:35 Est GFR (CKD-EPI)AfAm 64.07 06/19/19 07:35 Est GFR (CKD-EPI)NonAf 55.28 06/19/19 07:35 POC Glucometer 259 UNITS (80-120) 06/19/19 15:18 Random Glucose 246 mg/dL (74-106) H 06/19/19 07:35 Hemoglobin A1c % < 5.0 % (4.2-6.3) 06/18/19 07:30 Calcium 8.3 mg/dL (8.5-10.1) L 06/19/19 07:35 Phosphorus 3.2 mg/dL (2.5-4.9) 06/19/19 07:35 Magnesium 1.9 mg/dL (1.8-2.4) 06/19/19 07:35 Iron 30 ug/dL (50-175) L 06/18/19 07:30 Ferritin 46.2 ng/ml (8-388) 06/18/19 07:30 Total Bilirubin 2.0 mg/dL (0.2-1) H 06/19/19 07:35 Direct Bilirubin 0.8 mg/dL (0.0-0.2) H 06/17/19 13:00 AST 56 U/L (15-37) H 06/19/19 07:35 ALT 31 U/L (13-61) 06/19/19 07:35 Alkaline Phosphatase 135 U/L (45-117) H 06/19/19 07:35 Ammonia 49.40 umol/L (11-32) H 06/17/19 13:00 Troponin I < 0.02 ng/ml (0.00-0.05) 06/17/19 13:00 B-Natriuretic Peptide 1379.3 pg/ml (5-125) H 06/17/19 13:00 Total Protein 6.5 g/dl (6.4-8.2) 06/19/19 07:35 Albumin 3.2 g/dl (3.4-5.0) L 06/19/19 07:35 Vitamin B12 511 pg/ml (193-986) 06/19/19 07:35 Serum Folate 13 ng/mL (3.1-17.5) 06/19/19 07:35 Current Medications Generic Name Dose Route Start Last Admin Trade Name Freq PRN Reason Stop Dose Admin Albuterol Sulfate 2 puff 06/18/19 23:00 06/18/19 23:35 Ventolin Hfa Inhaler - IH 2 puff Q4H PRN Administration SHORT OF BREATH/WHEEZING Donepezil HCl 5 mg 06/18/19 10:00 06/19/19 10:22 Aricept - PO 5 mg DAILY REBEL Administration Furosemide 40 mg 06/19/19 14:00 06/19/19 15:17 Lasix - PO 40 mg BIDLASIX REBEL Administration Gabapentin 300 mg 06/18/19 10:00 06/19/19 10:22 Neurontin - PO 300 mg DAILY REBEL Administration Insulin Aspart 1 vial 06/18/19 22:00 06/19/19 15:56 Novolog Vial Sliding Scale - SQ 6 unit ACHS REBEL Administration Protocol Insulin Detemir 10 units 06/19/19 22:00 Levemir Vial SQ HS REBEL Lactulose 20 gm 06/19/19 16:00 06/19/19 15:16 Cephulac (Oral Use) PO 20 gm TID REBEL Administration Nadolol 40 mg 06/18/19 13:48 06/19/19 12:47 Corgard - PO 40 mg DAILY REBEL Administration Non-Formulary Medication 1 puff 06/19/19 22:00 Fluticasone/Salmeterol [Advair Hfa 115-21 Mcg Inhaler] PO BID REBEL Pantoprazole Sodium 40 mg 06/18/19 10:00 06/19/19 10:21 Protonix - PO 40 mg DAILY REBEL Administration Rifaximin 550 mg 06/17/19 22:00 06/19/19 10:21 Xifaxan - PO 550 mg BID REBEL Administration Spironolactone 100 mg 06/19/19 11:30 06/19/19 12:45 Aldactone - PO 100 mg DAILY REBEL Administration AP: AMS sec to Hypoglycemia: Prolonged hypoglycemia probably sec to prolonged action of Glipizide in pt with cirrhosis T2DM Cirrhosis of liver Asthma Bacteriuria with VRE BGMQACHS and 3 AM Off DNS Discussd with family members the need to stop Glipixide ER and adjust dose of Tresiba to avoid further episode of hypoglycemia. Pt has prescription of Tresiba 60 units daily and Levemir 50 units daily as per pt's and Levemir was discontinued by his MD recently. Discussed case with housestaff. When the resident checked with pharmacy, Tresiba was last filled in January. So unclear which Insulin and how much he was actually taking at home. Agree with starting levemir 10 units with Novolog coverage for now. Will adjust dose as necessary. No Glipizide on discharge. The same discussed with family yesterday and with patient today. Will F/u Problem List - Problems (1) Hypoglycemia Code(s): E16.2 - HYPOGLYCEMIA, UNSPECIFIED (2) Cirrhosis Code(s): K74.60 - UNSPECIFIED CIRRHOSIS OF LIVER Qualifiers: (3) Altered mental status Code(s): R41.82 - ALTERED MENTAL STATUS, UNSPECIFIED (4) Hepatitis C Code(s): B19.20 - UNSPECIFIED VIRAL HEPATITIS C WITHOUT HEPATIC COMA Qualifiers: Viral hepatitis chronicity: chronic Hepatic coma status: without hepatic coma Qualified Code(s): B18.2 - Chronic viral hepatitis C
[2019-06-19] MEDS: PATIENT'S OWN MEDICATION (NON-FORMULARY) (Fluticasone/Salmeterol [Advair Hfa 115-21 Mcg In PO SCH (18:16)
[2019-06-19] MEDS: PATIENT'S OWN MEDICATION (NON-FORMULARY) (Spironolactone [Spironolactone] 100 MG) PO SCH (18:16)
--- NOTE | 2019-06-19 19:02 | CON.ID ---
Consult Consult Specialty:: Infectious Diseases - Coverage Dr. Banks Reason for Consultation:: VRE in Urine - History of Present Illness Chief Complaint: MS Change History of Present Illness: Pt is a 68 yr ols man admitted with MS change found to be hypoglycemic. Hospital cw/up noted for (+) VRE in Urine c/s. Asked to recommend Rx. - History Source History Provided By: Patient, Medical Record Limitations to Obtaining History: No Limitations - Past Medical History Cardio/Vascular: Yes: HTN, Hyperlipdemia Pulmonary: Yes: Asthma Hepatobiliary: Yes: Cirrhosis, Hepatitis C Endocrine: Yes: Diabetes Mellitus (DM II) - Alcohol/Substance Use Hx Alcohol Use: No History of Substance Use: reports: Cocaine (Prior intranasal cocaine abuse) - Smoking History Smoking history: Never smoked Have you smoked in the past 12 months: No Aproximately how many cigarettes per day: 0 - Social History Usual Living Arrangement: With Spouse ADL: Independent 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 History of Recent Travel: No Home Medications - Allergies Allergies/Adverse Reactions: Allergies Allergy/AdvReac Type Severity Reaction Status Date / Time shellfish derived Allergy Verified 03/10/19 13:00 - Home Medications Home Medications: Ambulatory Orders Gabapentin 300 mg PO DAILY 11/26/18 Glipizide [Glipizide ER] 10 mg PO BID 11/26/18 Sitagliptin Phosphate [Januvia] 50 mg PO DAILY 11/26/18 Pantoprazole Sodium [Protonix -] 40 mg PO DAILY #30 tablet.ec 11/30/18 Lactulose 20 gm PO Q8H #2700 ml 02/09/19 Fluticasone/Salmeterol [Advair Hfa 115-21 Mcg Inhaler] 1 puff PO BID 03/11/19 Furosemide [Lasix] 40 mg PO BID 03/11/19 Donepezil HCl [Aricept -] 5 mg PO DAILY #15 tablet 03/14/19 Miscellaneous Medical Supply [Outpatient Order] 1 each ASDIR #1 misc Nadolol [Corgard -] 40 mg PO DAILY #30 tablet 03/14/19 Rifaximin [Xifaxan -] 550 mg PO BID #30 tablet 03/14/19 Spironolactone 100 mg PO DAILY #30 tablet 03/14/19 Family Disease History - Family Disease History Family Disease History: Diabetes: Grandparent, Other: Father (: 50's: Diabetic complications), Mother (: unclear when as she was not in his life) , Brother (3, 1 he knew and is healthy), Daughter (3, healthy) Review of Systems - Review of Systems Constitutional: denies: Chills, Fever, Night Sweats Cardiovascular: denies: Chest Pain Respiratory: denies: Cough, SOB Gastrointestinal: denies: Abdominal Pain Genitourinary: denies: Burning, Dysuria, Flank Pain, Frequency Physical Exam Vital Signs: Vital Signs Temperature 98.5 F 06/19/19 18:00 Pulse Rate 64 06/19/19 18:00 Respiratory Rate 20 06/19/19 18:00 Blood Pressure 122/53 L 06/19/19 18:00 O2 Sat by Pulse Oximetry (%) 98 06/19/19 09:00 Constitutional: Yes: Well Nourished Eyes: Yes: Conjunctiva Clear, PERRL Neck: Yes: Supple Cardiovascular: Yes: Regular Rate and Rhythm Respiratory: Yes: Regular, CTA Bilaterally Gastrointestinal: Yes: Normal Bowel Sounds, Soft. No: Tenderness Labs: CBC, BMP 06/19/19 07:35 06/19/19 07:35 Imaging - Results Chest X-ray: Report Reviewed Problem List - Problems (1) Hepatic encephalopathy Code(s): K72.90 - HEPATIC FAILURE, UNSPECIFIED WITHOUT COMA (2) Hypoglycemia Code(s): E16.2 - HYPOGLYCEMIA, UNSPECIFIED (3) Cirrhosis Code(s): K74.60 - UNSPECIFIED CIRRHOSIS OF LIVER Qualifiers: (4) Altered mental status Code(s): R41.82 - ALTERED MENTAL STATUS, UNSPECIFIED (5) Hepatitis C Code(s): B19.20 - UNSPECIFIED VIRAL HEPATITIS C WITHOUT HEPATIC COMA Qualifiers: Viral hepatitis chronicity: chronic Hepatic coma status: without hepatic coma Qualified Code(s): B18.2 - Chronic viral hepatitis C Assessment/Plan Pt admitted with altered MS. Hx Cirrhosis, DM with hypoglycemia. Asked to evaluate VRE in Urine c/s, UA negative. VRE in urine - colonization NO Rx needed at present time Isolation, Repeat UA and c/s.
[2019-06-19] MEDS: ALBUTEROL SO4 8 GM HFA INHALER IH PRN (21:49)
[2019-06-19] MEDS ORDERED: INSULIN (LEVEMIR) 100 UNITS/ML UNITS SQ SCH (22:00)
[2019-06-19] MEDS ORDERED: INSULIN SLIDING SCALE (NOVOLOG) 1 VIAL SQ SCH (22:00)
[2019-06-19] MEDS ORDERED: PATIENT'S OWN MEDICATION (NON-FORMULARY) (Fluticasone/Salmeterol [Advair Hfa 115-21 Mcg In PO SCH (22:00)
[2019-06-20] MEDS: LACTULOSE 20 GM/30 ML UDC (FOR ORAL USE ONLY) PO SCH ×2 (05:56→14:57)
[2019-06-20] MEDS: FUROSEMIDE 40 MG TABLET (FP) PO SCH ×2 (05:56→14:58)
[2019-06-20] MEDS: INSULIN SLIDING SCALE (NOVOLOG) 1 VIAL SQ SCH ×3 (06:00→17:47)
[2019-06-20] MEDS ORDERED: PT OWN MED DRAWER 7, Y5N ONE (09:10)
[2019-06-20] MEDS: PANTOPRAZOLE 40 MG TABLET (FP) PO SCH (09:21)
[2019-06-20] MEDS: RIFAXIMIN 550 MG TABLET (UD) PO SCH (09:21)
[2019-06-20] MEDS: SPIRONOLACTONE 25 MG TABLET (FP) PO SCH (09:21)
[2019-06-20] MEDS: NADOLOL 20 MG TABLET (FP) PO SCH (09:22)
[2019-06-20] MEDS: DONEPEZIL HCL 5 MG TABLET (FP) PO SCH (09:22)
[2019-06-20] MEDS: GABAPENTIN 300 MG CAPSULE (FP) PO SCH (09:22)
[2019-06-20] MEDS ORDERED: SPIRONOLACTONE 25 MG TABLET (FP) PO SCH (10:00)
--- NOTE | 2019-06-20 14:23 | PN ---
Progress Note (short form) - Note Progress Note: Denies any complaints Low FS in the morning Vital Signs Period Temp Pulse Resp BP Sys/Shen Pulse Ox Last 24 Hr 98 F-98.5 F 64-67 16-20 122-147/53-76 96-96 PE: Awake, alert Neck: supple, No JVD PERRL: EOMI Lungs: CTA CVS: S1S2 Abd: Benign Ext: + Edema Neuro: No focal deficit CMP Sodium 140 mmol/L (136-145) 06/19/19 07:35 Potassium 3.5 mmol/L (3.5-5.1) 06/19/19 07:35 Chloride 108 mmol/L (98-107) H 06/19/19 07:35 Carbon Dioxide 27 mmol/L (21-32) 06/19/19 07:35 Anion Gap 5 MMOL/L (8-16) L 06/19/19 07:35 BUN 23.4 mg/dL (7-18) H 06/19/19 07:35 Creatinine 1.3 mg/dL (0.55-1.3) 06/19/19 07:35 Est GFR (CKD-EPI)AfAm 64.07 06/19/19 07:35 Est GFR (CKD-EPI)NonAf 55.28 06/19/19 07:35 POC Glucometer 151 UNITS (80-120) 06/20/19 11:21 Random Glucose 246 mg/dL (74-106) H 06/19/19 07:35 Hemoglobin A1c % < 5.0 % (4.2-6.3) 06/18/19 07:30 Calcium 8.3 mg/dL (8.5-10.1) L 06/19/19 07:35 Phosphorus 3.2 mg/dL (2.5-4.9) 06/19/19 07:35 Magnesium 1.9 mg/dL (1.8-2.4) 06/19/19 07:35 Iron 30 ug/dL (50-175) L 06/18/19 07:30 Ferritin 46.2 ng/ml (8-388) 06/18/19 07:30 Total Bilirubin 2.0 mg/dL (0.2-1) H 06/19/19 07:35 Direct Bilirubin 0.8 mg/dL (0.0-0.2) H 06/17/19 13:00 AST 56 U/L (15-37) H 06/19/19 07:35 ALT 31 U/L (13-61) 06/19/19 07:35 Alkaline Phosphatase 135 U/L (45-117) H 06/19/19 07:35 Ammonia 49.40 umol/L (11-32) H 06/17/19 13:00 Troponin I < 0.02 ng/ml (0.00-0.05) 06/17/19 13:00 B-Natriuretic Peptide 1379.3 pg/ml (5-125) H 06/17/19 13:00 Total Protein 6.5 g/dl (6.4-8.2) 06/19/19 07:35 Albumin 3.2 g/dl (3.4-5.0) L 06/19/19 07:35 Vitamin B12 511 pg/ml (193-986) 06/19/19 07:35 Serum Folate 13 ng/mL (3.1-17.5) 06/19/19 07:35 AP: AMS sec to Hypoglycemia: Prolonged hypoglycemia probably sec to prolonged action of Glipizide in pt with cirrhosis T2DM Cirrhosis of liver Asthma Bacteriuria with VRE BGMQACHS and 3 AM Off DNS Discussd with family members the need to stop Glipixide ER and adjust dose of Tresiba to avoid further episode of hypoglycemia. Pt has prescription of Tresiba 60 units daily and Levemir 50 units daily as per pt's and Levemir was discontinued by his MD recently. Discussed same with housestaff. When the resident checked with pharmacy, Tresiba was last filled in January. So unclear which Insulin and how much he was actually taking at home. Decrease levemir 6 units with Novolog coverage. Will adjust dose as necessary. No Glipizide on discharge. The same discussed with family with patient. Will F/u Problem List - Problems (1) Hypoglycemia Code(s): E16.2 - HYPOGLYCEMIA, UNSPECIFIED (2) Cirrhosis Code(s): K74.60 - UNSPECIFIED CIRRHOSIS OF LIVER Qualifiers: (3) Altered mental status Code(s): R41.82 - ALTERED MENTAL STATUS, UNSPECIFIED (4) Hepatitis C Code(s): B19.20 - UNSPECIFIED VIRAL HEPATITIS C WITHOUT HEPATIC COMA Qualifiers: Viral hepatitis chronicity: chronic Hepatic coma status: without hepatic coma Qualified Code(s): B18.2 - Chronic viral hepatitis C
--- NOTE | 2019-06-20 15:51 | DS ---
Physical Exam: SUBJECTIVE: Feels well, no lightheadedness/dizziness/visual disturbance. Wants to go home. OBJECTIVE: Afebrile, Hemodynamically Stable. Sugars better controlled on Levemir 10 but hypoglycemic episode with Glu 60 this AM Last Vital Signs Temp Pulse Resp BP Pulse Ox 98.5 F 64 19 127/59 L 96 06/20/19 09:00 06/20/19 09:00 06/20/19 09:00 06/20/19 09:00 06/20/19 09:00 Heart - S1 S2, RRR Lungs - Clear to auscultation Abdomen - soft, non-tender. Bowel Sounds normal. Extremities - LE Edema +, chronic venous stasis. Neuro - AAO x 3. Tone/Power normal all 4 extremities. Laboratory Results - last 24 hr 06/19/19 06/20/19 06/20/19 21:00 05:55 11:21 POC Glucometer 148 60 151 Date of Admission:06/17/19 Date of Discharge: 06/20/19 Minutes to complete discharge: 40 Discharge Summary Reason For Visit: HYPOGLYCEMIA,AMS HEPATIC CIRRHOSIS Current Active Problems Hepatic encephalopathy (Acute) Hypoglycemia (Acute) Cirrhosis (Chronic) Hospital Course: 68 year old male with history of dementia, DM 2, HCV, Liver cirrhosis, Asthma, recent presentation to [facility] [place] with encephalopathy and ascites requiring paracentesis presents with altered mental status at home - found to be somnolent and intermittently responsive by . No chest pain/lightheadedness/ dyspnea. No fall/HI. Capillary glucose on EMS arrival was 46. He subsequently had 2 days of intermittent hypoglycemia as in-patinet despite stopping all insulin and oral anti-hyperglycemic meds. He was eventualy resume don Levemir 10 units by Endocrinology but had a reading of [address] this AM[address] Discussed with Dr. Burroughs, who recommends discharge with levemir of 6 units in addition to sliding scale, with close Endocrinology out-patient follow up. Advised not to take any oral diabetic medications for now until Endocrinology follow up. 1. Acute Metabolic Encephalopaty secondary to Hypoglycemia - resolved. Normally on Januvia, Glipizide, Insulin for DM 2 Glipizide/Januvia held. Has not take tresiba for several months. Re-started on Levemir - discussed with Endocirnology who reocmmends discharge with Levemir 6 units and sliding scale before meals/bedtime. Endo follow up as out-patient. 2. 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 Ammonia on high side at 49 Continue Spironolactone, Nadolol, Lactulose, Rifaximin, Lasix. 3. Asthma - stable. No evidence of exacerbation. 4. Anemia/Thrombocytopenia - secondary to Cirrhosis No bruising/bleeding. Will monitor. Iron 30/ferritin 46. B12/Folate wnl. 5, Hx of Dementia - Continue Donepezil. 6. 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 Afebrile, hemodynamically stable. No leukocytosis. No need for treatment as this is likely colonization as per ID. Medically optimized for discharge to the care of his . - Instructions Diet, Activity, Other Instructions: You were admitted for low blood sugar (hypoglycemia) which can be life threatening. Please stop all diabetic oral medications including Januvia and Glipizide. You were evaluated by Dr. Burroughs ([facility] Attendant) who recommends that you take the following on discharge: 1. Levemir 6 units every morning 2. Novolog as per sliding scale: Fingerstick Glucose - Units of Novolog 150-200 - Take 1 unit 200-250 - Take2 units 250 - 300 - Take 3 units 300-350 - take 4 units 350-400 - take 5 units >400 take 6 units and call PCP Please also follow with your primary care physician. - Home Medications Comprehensive Discharge Medication List: Ambulatory Orders Gabapentin 300 mg PO DAILY 11/26/18 Glipizide [Glipizide ER] 10 mg PO BID 11/26/18 Sitagliptin Phosphate [Januvia] 50 mg PO DAILY 11/26/18 Pantoprazole Sodium [Protonix -] 40 mg PO DAILY #30 tablet.ec 11/30/18 Lactulose 20 gm PO Q8H #2700 ml 02/09/19 Fluticasone/Salmeterol [Advair Hfa 115-21 Mcg Inhaler] 1 puff PO BID 03/11/19 Furosemide [Lasix] 40 mg PO BID 03/11/19 Donepezil HCl [Aricept -] 5 mg PO DAILY #15 tablet 03/14/19 Miscellaneous Medical Supply [Outpatient Order] 1 each ASDIR #1 misc Nadolol [Corgard -] 40 mg PO DAILY #30 tablet 03/14/19 Rifaximin [Xifaxan -] 550 mg PO BID #30 tablet 03/14/19 Spironolactone 100 mg PO DAILY #30 tablet 03/14/19 This patient is new to me today: No Emergency Visit: Yes ED Registration Date: 06/17/19 Care time: The patient presented to the Emergency Department on the above date and was hospitalized for further evaluation of their emergent condition. Critical Care patient: No - Discharge Referral Referred to [facility] Med P.C.: No
[2019-06-20 18:14] VITALS: BP 129/73; PULSE 59; TEMP 98.7
[2019-06-20] MEDS ORDERED: INSULIN (LEVEMIR) 100 UNITS/ML UNITS SQ SCH (22:00)
[2019-06-21 00:53] LABS: IRON SERUM 28 ug/dL (50-175); TOTAL IRON BINDING CAPACITY 210 ug/dL (250-450)
== END 2019-06-20 19:36 | disposition home or self-care (01) | DRG 637 ==
LOC: JER 12:22 → JERBED 14:47 → J5S 16:50 → J6S 06-19 21:33
DX: E11.649 Type 2 diabetes mellitus with hypoglycemia without coma (principal); G93.41 Metabolic encephalopathy; K76.6 Portal hypertension; K76.0 Fatty (change of) liver, not elsewhere classified; J45.909 Unspecified asthma, uncomplicated; K74.60 Unspecified cirrhosis of liver; R41.82 Altered mental status, unspecified; D64.9 Anemia, unspecified; I44.7 Left bundle-branch block, unspecified; K72.90 Hepatic failure, unspecified without coma; D69.6 Thrombocytopenia, unspecified; B18.2 Chronic viral hepatitis C; F03.90 Unspecified dementia, unspecified severity, without behavioral disturbance, psychotic disturbance, mood disturbance, and anxiety; E78.5 Hyperlipidemia, unspecified; T38.3X5A Adverse effect of insulin and oral hypoglycemic [antidiabetic] drugs, initial encounter; R82.71 Bacteriuria; Z86.19 Personal history of other infectious and parasitic diseases
CPT/HCPCS: 36415; 71045-TC-FY; 80053; 81003; 82140; 82248; 82607; 82728; 82746; 82803; 82962; 83036; 83540; 83550; 83735; 83880; 84100; 84484; 85025; 85610; 85730; 86850; 86900; 86901; 87086; 87186; 93005; 93010; 99283-25

== ENCOUNTER 2019-09-13 11:42 | Inpatient (IN) | payer OTHER, BC ==
--- NOTE | 2019-09-13 12:23 | PDOC ---
History of Present Illness - General Chief Complaint: Altered Mental Status Stated Complaint: Weakness Time Seen by Provider: 09/13/19 12:23 - History of Present Illness Initial Comments: 09/13/19 12:55 HPI: 68 y/o M with hx of IDDM, HCV, cirrhosis, asthma presenting to the ED for altered mental status since last night. at bedside reports he has appeared more lethargic since yesterday evening and had to be woken up out of bed to take meds and eat. However he was able to be put to sleep without issues. She notes that he had a fall out of bed. This morning, patient didnt wake up and is somnolent. He also had emesis and per , reported abd pain. She also states that he hasnt had a BM in 3days despite lactulose. On arrival patient was vomiting and required suctioning. states patient had no fever, cough, SOB, chest pain, hematemesis, BPR, dysuria. Of note, patient was admitted to [facility] last week for therapeutic paracentesis PMHx: as noted above ROS: as noted SHx: Denies tobacco use; no alcohol use; no rec drugs Allergies: NKDA ROS: GENERAL/CONSTITUTIONAL: No fever or chills. No weakness. HEAD, EYES, EARS, NOSE AND THROAT: No change in vision. No ear pain or discharge. No sore throat. CARDIOVASCULAR: No chest pain or shortness of breath RESPIRATORY: No cough, wheezing, or hemoptysis. GASTROINTESTINAL: +vomiting and constipation. GENITOURINARY: No dysuria, frequency, or change in urination. MUSCULOSKELETAL: No joint or muscle swelling or pain. No neck or back pain. SKIN: No rash NEUROLOGIC: +AMS ENDOCRINE: No increased thirst. No abnormal weight change HEMATOLOGIC/LYMPHATIC: No anemia, easy bleeding, or history of blood clots. ALLERGIC/IMMUNOLOGIC: No hives or skin allergy. PE: GENERAL: somnolent, but arousable to painful stimuli; does not respond to commands HEAD: No signs of trauma, normocephalic, atraumatic EYES: EOMI, scleral icterus, conjunctiva clear ENT: Auricles normal inspection, hearing grossly normal, nares patent, oropharynx clear without exudates. Moist mucosa NECK: Normal ROM, no lymphadenopathy LUNGS: No increased work of breathing, symmetrical chest rise, clear to auscultation bilaterally, no wheezes, crackles or rhonchi HEART: Regular rate and rhythm, normal S1 and S2, no murmurs, peripheral pulses 2+ and equal bilaterally. ABDOMEN: Soft, nondistended, nontender, normoactive bowel sounds. No guarding, no rebound. No masses. No CVAT EXTREMITIES: Normal inspection, Normal range of motion, no edema. No clubbing or cyanosis. NEUROLOGICAL: somnolent, does not follow commands SKIN: jaundice Past History - Past Medical History Allergies/Adverse Reactions: Allergies Allergy/AdvReac Type Severity Reaction Status Date / Time shellfish derived Allergy Verified 03/10/19 13:00 Home Medications: Ambulatory Orders Donepezil HCl [Aricept] 5 mg PO DAILY 09/13/19 Furosemide [Lasix -] 40 mg PO BID 09/13/19 Insulin (Levemir) [Levemir Vial] 6 unit SQ DAILY 09/13/19 Insulin (Novolog) [Novolog] 2 units SQ AC 09/13/19 Lactulose (Oral Use) [Cephulac -] 20 gm PO QID 09/13/19 Pantoprazole Sodium [Protonix] 40 mg PO DAILY 09/13/19 Salmeterol/Fluticasone [Advair 100Mcg/50Mcg -] 1 puff IH DAILY 09/13/19 Spironolactone 100 mg PO DAILY 09/13/19 Anemia: Yes Asthma: Yes Cancer: No Cardiac Disorders: Yes (AF) CVA: No COPD: No CHF: No Dementia: No Diabetes: Yes GI Disorders: Yes (duod ulcer) Disorders: No HTN: No Hypercholesterolemia: No Liver Disease: Yes (Fatty liver, cirrosis, Hpe c) Seizures: No Thyroid Disease: No - Surgical History Abdominal Surgery: No Appendectomy: No Cardiac Surgery: No Cholecystectomy: No Lung Surgery: No Neurologic Surgery: No - Psycho Social/Smoking Cessation Hx Smoking Status: No Smoking History: Former smoker Have you smoked in the past 12 months: No Number of Cigarettes Smoked Daily: 0 Information on smoking cessation initiated: No Hx Alcohol Use: No Drug/Substance Use Hx: No Substance Use Type: None Hx Substance Use Treatment: No *Physical Exam - Vital Signs Last Vital Signs Temp Pulse Resp BP Pulse Ox 98.1 F 87 17 158/83 98 09/13/19 12:08 09/13/19 12:08 09/13/19 12:08 09/13/19 12:08 09/13/19 12:08 ED Treatment Course - LABORATORY CBC & Chemistry Diagram: 09/13/19 12:45 09/13/19 12:45 Medical Decision Making - Medical Decision Making 09/13/19 13:12 68 y/o M with hx of IDDM, HCV, cirrhosis, asthma presenting to the ED for altered mental status since last night. Also with reports of abd pain, emesis and head trauma. VSS, AF. PE notable for somnolence and lack of response to external stimuli as well as jaundice. DDx includes CVA, toxic/metabolic encephalopathy, hypoglycemia, SBO, sepsis -BGM, cbc, cmp, ammonia, cardiac profile, ua, ucx, bcx ekg, CT head noncon, CT abd/pel 09/13/19 15:11 patient appears more arousable and is stating he needs to use the bathroom VSS labs unremarkable except for mildly elevated BUN 34 CT head negative and Abd/pel without acute pathology Patient will be admitted to Dr Hankins for [facility] for further workup; requesting neuro and GI consults Discharge - Discharge Information Problems reviewed: Yes Clinical Impression/Diagnosis: Altered mental status Qualifiers: Altered mental status type: unspecified Qualified Code(s): R41.82 - Altered mental status, unspecified Condition: Stable - Admission Yes - Follow up/Referral - Patient Discharge Instructions - Post Discharge Activity
[2019-09-13 13:04] LABS: BASO % 0.7 % (0-2.0); EOS % 1.4 % (0-4.5); HEMATOCRIT 26.6 % (35.4-49); HEMOGLOBIN 8.9 GM/dL (11.7-16.9); MCHC 33.6 g/dl (32.0-35.9); MEAN CELL VOLUME 89.4 fl (80-96); MEAN PLT VOLUME 9.7 fl (7.5-11.1); MONO % 6.7 % (3.8-10.2); NEUT % 78.2 % (42.8-82.8); PLATELET COUNT 43 K/MM3 (134-434); RBC 2.97 M/mm3 (4.00-5.60); RDW 18.5 % (11.9-15.9); WHITE BLOOD COUNT 3.5 K/mm3 (4.0-10.0)
[2019-09-13 13:20] LABS: ALBUMIN 3.8 g/dl (3.4-5.0); BILIRUBIN,TOTAL 4.6 mg/dL (0.2-1); BLOOD UREA NITROGEN 32.9 mg/dL (7-18); CALCIUM 9.1 mg/dL (8.5-10.1); CREATININE 1.4 mg/dL (0.55-1.3); POTASSIUM 3.5 mmol/L (3.5-5.1); TOT PROT 7.5 g/dl (6.4-8.2)
[2019-09-13 13:28] LABS: INR 1.44 (0.83-1.09)
--- NOTE | 2019-09-13 13:29 | PDOC ---
Documentation entered by Marco A Boles SCRIBE, acting as scribe for Joel Navarrete MD. Joel Navarrete MD: This documentation has been prepared by the Ramana tilley Daniel, SCRIBE, under my direction and personally reviewed by me in its entirety. I confirm that the documentation accurately reflects all work, treatment, procedures, and medical decision making performed by me. Attending Attestation - Resident Resident Name: NicolaFayjin - ED Attending Attestation I have performed the following: I have examined & evaluated the patient, The case was reviewed & discussed with the resident, I agree w/resident's findings & plan - HPI HPI: 09/13/19 13:24 68-year-old male with history of hepatic encephalopathy requiring therapeutic paracentesis in the past, presents now brought in by EMS and family with depressed mental status and lethargy since yesterday. Patient also had fall from bed yesterday, positive vomiting, no fevers or chills noted. - Physicial Exam PE: 09/13/19 13:25 Afebrile with normal vital signs here, somnolent but arousable to painful stimuli + jaundice, vomited on arrival, protecting airway at this time heart regular, lungs with bibasilar crackles abd distended but soft, suture in place R abdomen from prior paracentesis. 3+ edema lower extremities neuro/psych limited - Medical Decision Making 09/13/19 13:27 68y/o M hepatic encephalopathy p/w depressed mental status over past day, also in the setting of fall. r/o TBI, possible hepatic encephalopathy, r/o infectious etiolology. labs, ua ekg, cxr ct head lactulose monitor airway/alertness admit 09/13/19 14:23 baseline pancytopenia, normal BUN and ammonia, slightly elevated T bili. ct head without TBI, CTAP without obstruction. 09/13/19 15:04 much more alert, ambulating with assistance. ? oversedated on meds. admit Heart Score/ECG Review #1 ECG reviewed & interpreted by me at: 12:52 General ECG Interpretation: Sinus Rhythm, Normal Rate (71, LBBB, QTC 506), No acute ischemic changes Compared to previous ECG there are: No significant change (c/w 06/17/19)
[2019-09-13 15:51] LABS: ANISOCYTOSIS 1+; PLATELET ESTIMATE DECREASED
[2019-09-13 15:53] LABS: HYALINE CASTS 5 /lpf (0-8); PH,URINE 5.5 (5.0-8.0); URINE APPEARANCE CLEAR; URINE BACTERIA 12.4 /hpf (NEGATIVE); URINE BILIRUBIN NEGATIVE (NEGATIVE); URINE COLOR DK YELLOW; URINE GLUCOSE (UA) NEGATIVE (NEGATIVE); URINE KETONE NEGATIVE (NEGATIVE); URINE LEUK ESTERASE NEGATIVE (NEGATIVE); URINE NITRITE NEGATIVE (NEGATIVE); URINE PROTEIN 3+ (NEGATIVE); URINE RBC 38 /hpf (0-4); URINE WBC 1 /hpf (0-5)
[2019-09-13 16:07] LABS: COCAINE, UR NEGATIVE ng/ml (CUTOFF=300); METHADONE, UR NEGATIVE ng/ml (CUTOFF=300); OPIATES, URI NEGATIVE ng/ml (CUTOFF=300); PHENCYCLIDINE,URINE NEGATIVE ng/ml (CUTOFF=25); URINE AMPHETAMINES NEGATIVE ng/ml (CUTOFF=500); URINE BARBITURATES NEGATIVE ng/ml (CUTOFF=200); URINE BENZODIAZEPINES NEGATIVE ng/ml (CUTOFF=200)
--- NOTE | 2019-09-13 17:32 | HP ---
Admitting History and Physical - Primary Care Physician PCP: Wily Hankins - Admission History of Present Illness: 68 y/o M with hx of IDDM, HCV, cirrhosis, asthma presenting to the ED for altered mental status since last night. at bedside reports he has appeared more lethargic since yesterday evening and had to be woken up out of bed to take meds and eat. However he was able to be put to sleep without issues. She notes that he had a fall out of bed. This morning, patient didnt wake up and is somnolent. He also had emesis and per , reported abd pain. She also states that he hasnt had a BM in 3days despite lactulose. On arrival patient was vomiting and required suctioning. states patient had no fever, cough, SOB, chest pain, hematemesis, BPR, dysuria. 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 History of Recent Travel: No Home Medications - Allergies Allergies/Adverse Reactions: Allergies Allergy/AdvReac Type Severity Reaction Status Date / Time shellfish derived Allergy Verified 03/10/19 13:00 - Home Medications Home Medications: Ambulatory Orders Donepezil HCl [Aricept] 5 mg PO DAILY 09/13/19 Furosemide [Lasix -] 40 mg PO BID 09/13/19 Insulin (Levemir) [Levemir Vial] 6 unit SQ DAILY 09/13/19 Insulin (Novolog) [Novolog] 2 units SQ AC 09/13/19 Lactulose (Oral Use) [Cephulac -] 20 gm PO QID 09/13/19 Pantoprazole Sodium [Protonix] 40 mg PO DAILY 09/13/19 Salmeterol/Fluticasone [Advair 100Mcg/50Mcg -] 1 puff IH DAILY 09/13/19 Spironolactone 100 mg PO DAILY 09/13/19 Physical Examination Vital Signs: Vital Signs Temperature 98.6 F 09/13/19 15:55 Pulse Rate 79 09/13/19 15:55 Respiratory Rate 17 09/13/19 15:55 Blood Pressure 134/68 09/13/19 15:55 O2 Sat by Pulse Oximetry (%) 95 09/13/19 15:55 Constitutional: Yes: No Distress HENT: Yes: Atraumatic Neck: Yes: Supple Cardiovascular: Yes: Regular Rate and Rhythm Respiratory: Yes: CTA Bilaterally Gastrointestinal: Yes: Normal Bowel Sounds Extremities: Yes: WNL Edema: No Neurological: Yes: Alert Labs: CBC, BMP 09/13/19 12:45 09/13/19 12:45 Problem List - Problems (1) Altered mental status Assessment/Plan: doing better continue to monitor Code(s): R41.82 - ALTERED MENTAL STATUS, UNSPECIFIED Qualifiers: Altered mental status type: unspecified Qualified Code(s): R41.82 - Altered mental status, unspecified (2) Aphasia Code(s): R47.01 - APHASIA (3) Hepatic encephalopathy Code(s): K72.90 - HEPATIC FAILURE, UNSPECIFIED WITHOUT COMA (4) Cirrhosis Code(s): K74.60 - UNSPECIFIED CIRRHOSIS OF LIVER Qualifiers: (5) Hepatitis C Code(s): B19.20 - UNSPECIFIED VIRAL HEPATITIS C WITHOUT HEPATIC COMA Qualifiers: (6) Hypertension Code(s): I10 - ESSENTIAL (PRIMARY) HYPERTENSION (7) Anemia Assessment/Plan: stool for occult blood gi eval Code(s): D64.9 - ANEMIA, UNSPECIFIED Assessment/Plan Laboratory Tests 09/13/19 09/13/19 09/13/19 12:40 12:41 12:45 WBC RBC Hgb Hct MCV MCH MCHC RDW Plt Count MPV Absolute Neuts (auto) Neutrophils % Neutrophils % (Manual) Band Neutrophils % Lymphocytes % Lymphocytes % (Manual) Monocytes % Monocytes % (Manual) Eosinophils % Eosinophils % (Manual) Basophils % Basophils % (Manual) Myelocytes % (Man) Promyelocytes % (Man) Blast Cells % (Manual) Nucleated RBC % Metamyelocytes Platelet Estimate Poikilocytosis Anisocytosis Microcytosis Schistocytes PT with INR INR Sodium Potassium Chloride Carbon Dioxide Anion Gap BUN Creatinine Est GFR (CKD-EPI)AfAm Est GFR (CKD-EPI)NonAf POC Glucometer 167 Random Glucose Calcium Total Bilirubin AST ALT Alkaline Phosphatase Ammonia < 10.00 L Creatine Kinase 268 Creatine Kinase Index 1.1 CK-MB (CK-2) 3.1 Troponin I < 0.02 Total Protein Albumin TSH Urine Color Urine Appearance Urine pH Ur Specific Phil Campbell Urine Protein Urine Glucose (UA) Urine Ketones Urine Blood Urine Nitrite Urine Bilirubin Urine Urobilinogen Ur Leukocyte Esterase Urine WBC (Auto) Urine RBC (Auto) Urine Casts (Auto) U Epithel Cells (Auto) Urine Bacteria (Auto) Opiates Screen Methadone Screen Barbiturate Screen Phencyclidine Screen Ur Amphetamines Screen MDMA (Ecstasy) Screen Benzodiazepines Screen Cocaine Screen U Marijuana (THC) Screen 09/13/19 09/13/19 09/13/19 12:45 12:45 12:45 WBC 3.5 L RBC 2.97 L Hgb 8.9 L Hct 26.6 L D MCV 89.4 MCH 30.0 MCHC 33.6 RDW 18.5 H Plt Count 43 L MPV 9.7 Absolute Neuts (auto) 2.8 Neutrophils % 78.2 Neutrophils % (Manual) 78.8 Band Neutrophils % 0.0 Lymphocytes % 13.0 D Lymphocytes % (Manual) 11.1 Monocytes % 6.7 Monocytes % (Manual) 6 Eosinophils % 1.4 Eosinophils % (Manual) 3.0 Basophils % 0.7 Basophils % (Manual) 1.0 Myelocytes % (Man) 0 Promyelocytes % (Man) 0 Blast Cells % (Manual) 0 Nucleated RBC % 0 Metamyelocytes 0 Platelet Estimate Decreased Poikilocytosis 1+ Anisocytosis 1+ Microcytosis 1+ Schistocytes 1+ PT with INR 17.00 H INR 1.44 H Sodium 141 Potassium 3.5 Chloride 109 H Carbon Dioxide 26 Anion Gap 7 L BUN 32.9 H Creatinine 1.4 H Est GFR (CKD-EPI)AfAm 58.58 Est GFR (CKD-EPI)NonAf 50.54 POC Glucometer Random Glucose 191 H Calcium 9.1 Total Bilirubin 4.6 H AST 55 H ALT 36 Alkaline Phosphatase 165 H Ammonia Creatine Kinase Creatine Kinase Index CK-MB (CK-2) Troponin I Total Protein 7.5 Albumin 3.8 TSH Urine Color Urine Appearance Urine pH Ur Specific Phil Campbell Urine Protein Urine Glucose (UA) Urine Ketones Urine Blood Urine Nitrite Urine Bilirubin Urine Urobilinogen Ur Leukocyte Esterase Urine WBC (Auto) Urine RBC (Auto) Urine Casts (Auto) U Epithel Cells (Auto) Urine Bacteria (Auto) Opiates Screen Methadone Screen Barbiturate Screen Phencyclidine Screen Ur Amphetamines Screen MDMA (Ecstasy) Screen Benzodiazepines Screen Cocaine Screen U Marijuana (THC) Screen 09/13/19 09/13/19 09/13/19 12:45 15:15 15:23 WBC RBC Hgb Hct MCV MCH MCHC RDW Plt Count MPV Absolute Neuts (auto) Neutrophils % Neutrophils % (Manual) Band Neutrophils % Lymphocytes % Lymphocytes % (Manual) Monocytes % Monocytes % (Manual) Eosinophils % Eosinophils % (Manual) Basophils % Basophils % (Manual) Myelocytes % (Man) Promyelocytes % (Man) Blast Cells % (Manual) Nucleated RBC % Metamyelocytes Platelet Estimate Poikilocytosis Anisocytosis Microcytosis Schistocytes PT with INR INR Sodium Potassium Chloride Carbon Dioxide Anion Gap BUN Creatinine Est GFR (CKD-EPI)AfAm Est GFR (CKD-EPI)NonAf POC Glucometer Random Glucose Calcium Total Bilirubin AST ALT Alkaline Phosphatase Ammonia Creatine Kinase Creatine Kinase Index CK-MB (CK-2) Troponin I Total Protein Albumin TSH 0.88 D Urine Color Dk yellow Urine Appearance Clear Urine pH 5.5 Ur Specific Phil Campbell 1.018 Urine Protein 3+ H Urine Glucose (UA) Negative Urine Ketones Negative Urine Blood 2+ H Urine Nitrite Negative Urine Bilirubin Negative Urine Urobilinogen 1.0 Ur Leukocyte Esterase Negative Urine WBC (Auto) 1 Urine RBC (Auto) 38 Urine Casts (Auto) 5 U Epithel Cells (Auto) 3.0 Urine Bacteria (Auto) 12.4 Opiates Screen Negative Methadone Screen Negative Barbiturate Screen Negative Phencyclidine Screen Negative Ur Amphetamines Screen Negative MDMA (Ecstasy) Screen Negative Benzodiazepines Screen Negative Cocaine Screen Negative U Marijuana (THC) Screen Negative Active Medications Generic Name Dose Route Start Last Admin Trade Name Freq PRN Reason Stop Dose Admin Heparin Sodium (Porcine) 5,000 unit 09/13/19 22:00 09/14/19 11:26 Heparin - SQ Not Given BID REBEL Sodium Chloride 1,000 mls @ 75 mls/hr 09/13/19 17:45 09/14/19 18:04 Normal Saline - IV Not Given ASDIR REBEL Lactulose 20 gm 09/13/19 18:00 09/14/19 18:04 Cephulac (Oral Use) PO 20 gm QID REBEL Administration Pantoprazole Sodium 40 mg 09/14/19 10:00 09/14/19 14:48 Protonix - PO 40 mg DAILY REBEL Administration Rifaximin 550 mg 09/14/19 13:30 09/14/19 14:48 Xifaxan - PO 550 mg BID REBEL Administration
[2019-09-13] MEDS: SODIUM CHLORIDE 1,000 ML IV SCH (18:33)
[2019-09-13] MEDS: LACTULOSE 20 GM/30 ML UDC (FOR ORAL USE ONLY) PO SCH ×2 (18:33→21:40)
[2019-09-13] MEDS: HEPARIN NA (PORCINE) 5,000 UNITS/ML 1ML VIAL SQ SCH (21:40)
[2019-09-14 07:22] LABS: BASO % 0.8 % (0-2.0); EOS % 3.6 % (0-4.5); HEMATOCRIT 23.9 % (35.4-49); HEMOGLOBIN 8.1 GM/dL (11.7-16.9); LYMPH % 17.1 % (8-40); MCH 30.2 pg (25.7-33.7); MCHC 33.8 g/dl (32.0-35.9); MEAN CELL VOLUME 89.5 fl (80-96); MEAN PLT VOLUME 10.2 fl (7.5-11.1); MONO % 7.5 % (3.8-10.2); PLATELET COUNT 42 K/MM3 (134-434); RBC 2.67 M/mm3 (4.00-5.60); RDW 18.9 % (11.9-15.9); WHITE BLOOD COUNT 3.8 K/mm3 (4.0-10.0)
[2019-09-14 07:52] LABS: ALBUMIN 3.2 g/dl (3.4-5.0); BILIRUBIN,TOTAL 3.7 mg/dL (0.2-1); BLOOD UREA NITROGEN 30.2 mg/dL (7-18); CALCIUM 8.6 mg/dL (8.5-10.1); CREATININE 1.3 mg/dL (0.55-1.3); POTASSIUM 3.3 mmol/L (3.5-5.1); TOT PROT 6.4 g/dl (6.4-8.2)
--- NOTE | 2019-09-14 10:00 | EKG ---
Test Reason : Blood Pressure : / mmHG Vent. Rate : 071 BPM Atrial Rate : 071 BPM P-R Int : 142 ms QRS Dur : 150 ms QT Int : 466 ms P-R-T Axes : 031 -17 125 degrees QTc Int : 506 ms NORMAL SINUS RHYTHM LEFT BUNDLE BRANCH BLOCK ABNORMAL ECG WHEN COMPARED WITH ECG OF 17-JUN-2019 13:42, NO SIGNIFICANT CHANGE WAS FOUND Confirmed by MD CHELSEA, KELLIE ([id number]) on 09/14/2019 9:59:52 AM Referred By: Confirmed By:KELLIE TRAN MD
--- NOTE | 2019-09-14 10:47 | CONSULT ---
Consult - text type - Consultation Consultation Note: Neurology Chief Complaint: Altered Mental Status HPI: 68 y/o M with hx of IDDM, HCV, cirrhosis, asthma presenting to the ED for altered mental status from the night prior to admission. per notes, the reported he has appeared more lethargic since evening prior and had to be woken up out of bed to take meds and eat. However he was able to be put to sleep without issues. She noted that he had a fall out of bed. The morning of admission, the patient didnt wake up and was somnolent. He also had emesis and per , reported abd pain. She also states that he hasnt had a BM in 3days despite lactulose. On arrival patient was vomiting and required suctioning. states patient had no fever, cough, SOB, chest pain, hematemesis, BPR, dysuria. CT head was completed and did not show acute changes. Of note, patient was admitted to [facility] last week for therapeutic paracentesis. Was noted to have sscleral icterus, slight jaundice. Most likely toxic metabolic encephalopathy. On labs, ammonia level normal but hemoglobin and hematocrit reduced and suspicious for anemia. During my visit this morning, he is awake and alert but remains confused and is not completely aware of his environment or oriented. This does seem to be a improvement in mental status but not fully at baseline yet. Past History - Past Medical History Allergies/Adverse Reactions: Allergies Allergy/AdvReac Type Severity Reaction Status Date / Time shellfish derived Allergy Verified 03/10/19 13:00 Home Medications: Ambulatory Orders Donepezil HCl [Aricept] 5 mg PO DAILY 09/13/19 Furosemide [Lasix -] 40 mg PO BID 09/13/19 Insulin (Levemir) [Levemir Vial] 6 unit SQ DAILY 09/13/19 Insulin (Novolog) [Novolog] 2 units SQ AC 09/13/19 Lactulose (Oral Use) [Cephulac -] 20 gm PO QID 09/13/19 Pantoprazole Sodium [Protonix] 40 mg PO DAILY 09/13/19 Salmeterol/Fluticasone [Advair 100Mcg/50Mcg -] 1 puff IH DAILY 09/13/19 Spironolactone 100 mg PO DAILY 09/13/19 Anemia: Yes Asthma: Yes Cancer: No Cardiac Disorders: Yes (AF) CVA: No COPD: No CHF: No Dementia: No Diabetes: Yes GI Disorders: Yes (duod ulcer) Disorders: No HTN: No Hypercholesterolemia: No Liver Disease: Yes (Fatty liver, cirrosis, Hpe c) Seizures: No Thyroid Disease: No FAMILY: HTN - Surgical History Abdominal Surgery: No Appendectomy: No Cardiac Surgery: No Cholecystectomy: No Lung Surgery: No Neurologic Surgery: No - Psycho Social/Smoking Cessation Hx Smoking Status: No Smoking History: Former smoker Have you smoked in the past 12 months: No Number of Cigarettes Smoked Daily: 0 Information on smoking cessation initiated: No Hx Alcohol Use: No Drug/Substance Use Hx: No Substance Use Type: None Hx Substance Use Treatment: No ROS: GENERAL/CONSTITUTIONAL: No fever or chills. No weakness. HEAD, EYES, EARS, NOSE AND THROAT: No change in vision. No ear pain or discharge. No sore throat. CARDIOVASCULAR: No chest pain or shortness of breath RESPIRATORY: No cough, wheezing, or hemoptysis. GASTROINTESTINAL: +vomiting and constipation. GENITOURINARY: No dysuria, frequency, or change in urination. MUSCULOSKELETAL: No joint or muscle swelling or pain. No neck or back pain. SKIN: No rash NEUROLOGIC: +AMS ENDOCRINE: No increased thirst. No abnormal weight change HEMATOLOGIC/LYMPHATIC: No anemia, easy bleeding, or history of blood clots. ALLERGIC/IMMUNOLOGIC: No hives or skin allergy. *Physical Exam Vital Signs Period Temp Pulse Resp BP Sys/Shen Pulse Ox Last 24 Hr 97.8 F-98.6 F 77-87 17-20 134-158/68-83 95-98 PE: GENERAL: somnolent, but arousable to painful stimuli; does not respond to commands HEAD: No signs of trauma, normocephalic, atraumatic EYES: EOMI, scleral icterus, conjunctiva clear ENT: Auricles normal inspection, hearing grossly normal, nares patent, oropharynx clear without exudates. Moist mucosa NECK: Normal ROM, no lymphadenopathy LUNGS: No increased work of breathing, symmetrical chest rise, clear to auscultation bilaterally, no wheezes, crackles or rhonchi HEART: Regular rate and rhythm, normal S1 and S2, no murmurs, peripheral pulses 2+ and equal bilaterally. ABDOMEN: Soft, nondistended, nontender, normoactive bowel sounds. No guarding, no rebound. No masses. No CVAT EXTREMITIES: Normal inspection, Normal range of motion, no edema. No clubbing or cyanosis. NEUROLOGICAL: somnolent, moves extremities equally bilaterally, sensory intact, not following confrontation evaluation SKIN: jaundice CBCD WBC 3.8 K/mm3 (4.0-10.0) L 09/14/19 06:15 RBC 2.67 M/mm3 (4.00-5.60) L 09/14/19 06:15 Hgb 8.1 GM/dL (11.7-16.9) L 09/14/19 06:15 Hct 23.9 % (35.4-49) L 09/14/19 06:15 MCV 89.5 fl (80-96) 09/14/19 06:15 MCHC 33.8 g/dl (32.0-35.9) 09/14/19 06:15 RDW 18.9 % (11.9-15.9) H 09/14/19 06:15 Plt Count 42 K/MM3 (134-434) L 09/14/19 06:15 MPV 10.2 fl (7.5-11.1) 09/14/19 06:15 CMP Sodium 143 mmol/L (136-145) 09/14/19 06:15 Potassium 3.3 mmol/L (3.5-5.1) L 09/14/19 06:15 Chloride 111 mmol/L (98-107) H 09/14/19 06:15 Carbon Dioxide 26 mmol/L (21-32) 09/14/19 06:15 Anion Gap 6 MMOL/L (8-16) L 09/14/19 06:15 BUN 30.2 mg/dL (7-18) H 09/14/19 06:15 Creatinine 1.3 mg/dL (0.55-1.3) 09/14/19 06:15 Random Glucose 184 mg/dL (74-106) H 09/14/19 06:15 Calcium 8.6 mg/dL (8.5-10.1) 09/14/19 06:15 Total Bilirubin 3.7 mg/dL (0.2-1) H 09/14/19 06:15 AST 55 U/L (15-37) H 09/14/19 06:15 ALT 31 U/L (13-61) 09/14/19 06:15 Alkaline Phosphatase 147 U/L (45-117) H 09/14/19 06:15 Total Protein 6.4 g/dl (6.4-8.2) 09/14/19 06:15 Albumin 3.2 g/dl (3.4-5.0) L 09/14/19 06:15 CARDIAC ENZYMES Creatine Kinase 268 U/L (26-308) 09/13/19 12:45 Troponin I < 0.02 ng/ml (0.00-0.05) 09/13/19 12:45 Medical Decision Making 68 y/o M with hx of IDDM, HCV, cirrhosis, asthma presenting to the ED for altered mental status from the night prior to admission. per notes, the reported he has appeared more lethargic since evening prior and had to be woken up out of bed to take meds and eat. However he was able to be put to sleep without issues. She noted that he had a fall out of bed. The morning of admission, the patient didnt wake up and was somnolent. He also had emesis and per , reported abd pain. She also states that he hasnt had a BM in 3days despite lactulose. On arrival patient was vomiting and required suctioning. states patient had no fever, cough, SOB, chest pain, hematemesis, BPR, dysuria. CT head was completed and did not show acute changes. Of note, patient was admitted to [facility] last week for therapeutic paracentesis. Was noted to have sscleral icterus, slight jaundice. Most likely toxic metabolic encephalopathy. On labs, ammonia level normal but hemoglobin and hematocrit reduced and suspicious for anemia. During my visit this morning, he is awake and alert but remains confused and is not completely aware of his environment or oriented. This does seem to be a improvement in mental status but not fully at baseline yet. Continue monitoring mental status, electrolytes optimization. GI evaluation and follow-up. Monitor H and H, transfuse as needed. Elevated glucose as well, optimize and maintain euglycemic range.
[2019-09-14] MEDS: LACTULOSE 20 GM/30 ML UDC (FOR ORAL USE ONLY) PO SCH ×4 (11:26→21:21)
[2019-09-14] MEDS: HEPARIN NA (PORCINE) 5,000 UNITS/ML 1ML VIAL SQ SCH ×2 (11:26→21:21)
[2019-09-14] MEDS: SODIUM CHLORIDE 1,000 ML IV SCH ×2 (13:20→18:04)
[2019-09-14] MEDS ORDERED: LACTULOSE 20 GM/30 ML UDC (FOR ORAL USE ONLY) PO ONE (13:29)
[2019-09-14] MEDS: PANTOPRAZOLE 40 MG TABLET (FP) PO SCH (14:48)
[2019-09-14] MEDS: RIFAXIMIN 550 MG TABLET (UD) PO SCH ×2 (14:48→21:22)
--- NOTE | 2019-09-14 17:15 | CONS ---
DATE OF CONSULTATION: DATE OF DICTATION: 09/14/2019 HISTORY: Patient is a 68-year-old man with a past medical history of diabetes, hepatitis C, cirrhosis, asthma who presented to the hospital after appearing more lethargic by his . Apparently, he had fallen out of bed and had an episode of nausea and vomiting that is not reported hematemesis. Apparently, he had taken lactulose while at home but has not had a bowel movement in 3-4 days. Patient is a poor historian and does not offer any further history during this examination. He does deny any abdominal pain, nausea, vomiting, or blood in his stool. He has not had a recent endoscopic examination. He was seen in 2019 as an inpatient by Dr. Fish; however, there is no report of any endoscopic procedures done during that hospitalization. We will follow up with Dr. Fish regarding any outpatient procedures he may or may not have had. PAST MEDICAL HISTORY: As listed in the HPI. PAST SURGICAL HISTORY: As listed in the HPI. ALLERGIES: SHELLFISH. HOME MEDICATIONS: Include Aricept, Lasix, Levemir, NovoLog, lactulose, Protonix, Advair, and spironolactone. SOCIAL HISTORY: Does not drink. Cocaine is reported. He is a former smoker. FAMILY HISTORY: Noncontributory. REVIEW OF SYSTEMS: As per the HPI. PHYSICAL EXAMINATION: Vital Signs: Temperature 98, pulse 73, blood pressure 140/70, respiratory rate 17, oxygen saturation 97% on room air. General: No acute distress. Lethargic but does awake and respond to questions. Cardiovascular: S1, S2. Regular rate and rhythm. Lungs: Bilaterally clear to auscultation. Abdomen: Nontender with flank dullness. Extremities: No edema. Neurologic: Limited, however, he is awake, alert, and oriented to person. He does not comply with testing for asterixis during this examination. LABORATORIES: White blood cell count 3.8, hemoglobin 8.1, hematocrit 23, MCV 89, platelet count 42, INR 1.4. Sodium 143, potassium 3.3, BUN 30, creatinine 1.3, glucose 184, AST 55, ALT 31, alkaline phosphatase 147, bilirubin 3.7. Toxicology screen is negative. He had an abdomen and pelvis CT scan on the , which revealed limited study, mild constipation, no evidence of obstruction. Liver cirrhosis and portal hypertension with recannulation of the umbilical vein and splenomegaly. [id number] ascites and small bilateral pleural effusions. Cultures are pending final results. IMPRESSION: Hepatitis C. Cirrhosis decompensated with encephalopathy. Will need to rule out underlying infectious process as an etiology of his current symptoms. PLAN: We will start him on rifaximin 550 mg p.o. b.i.d. Continue him on lactulose 30 mL q.i.d. Titrate to 3-4 bowel movements daily. Frequent neurologic checks. Protonix 40 mg p.o. daily. He should be started back on his nadolol daily. He can also be continued on spironolactone and Lasix. His creatinine should be monitored as well as his intake and outputs and daily weights. For now, hold his diuretics and assess his weighs and intake and outputs. He can be continued on a 2-g soft diet. Follow up cultures. Keep electrolytes within normal limits. Avoid NSAIDs. Avoid sedatives. He would benefit from a diagnostic upper endoscopy to evaluate for varices. He should also undergo a complete viral hepatitis panel. Patient will be followed by the GI service. DO ASHLEE SOTO/[id number]
--- NOTE | 2019-09-14 19:11 | PN ---
Progress Note, Physician - Current Medication List Current Medications: Active Medications Heparin Sodium (Porcine) (Heparin -) 5,000 unit SQ BID [facility] Last Admin: 09/14/19 11:26 Dose: Not Given Sodium Chloride (Normal Saline -) 1,000 mls @ 75 mls/hr IV ASDIR [facility] Last Admin: 09/14/19 18:04 Dose: Not Given Lactulose (Cephulac (Oral Use)) 20 gm PO QID [facility] Last Admin: 09/14/19 18:04 Dose: 20 gm Pantoprazole Sodium (Protonix -) 40 mg PO DAILY [facility] Last Admin: 09/14/19 14:48 Dose: 40 mg Rifaximin (Xifaxan -) 550 mg PO BID [facility] Last Admin: 09/14/19 14:48 Dose: 550 mg - Objective Vital Signs: Vital Signs Temperature 98.7 F 09/14/19 13:09 Pulse Rate 73 09/14/19 13:09 Respiratory Rate 17 09/14/19 13:09 Blood Pressure 140/70 09/14/19 13:09 O2 Sat by Pulse Oximetry (%) 97 09/14/19 08:44 Constitutional: Yes: No Distress HENT: Yes: Atraumatic Neck: Yes: Supple Cardiovascular: Yes: Regular Rate and Rhythm Respiratory: Yes: CTA Bilaterally Gastrointestinal: Yes: Normal Bowel Sounds Extremities: Yes: WNL Edema: No Peripheral Pulses WNL: Yes Neurological: Yes: Alert Labs: CBC, BMP 09/14/19 06:15 09/14/19 06:15 INR, PTT INR 1.44 (0.83-1.09) H 09/13/19 12:45 Problem List - Problems (1) Altered mental status Assessment/Plan: doing better continue to monitor Code(s): R41.82 - ALTERED MENTAL STATUS, UNSPECIFIED Qualifiers: Altered mental status type: unspecified Qualified Code(s): R41.82 - Altered mental status, unspecified (2) Aphasia Code(s): R47.01 - APHASIA (3) Hepatic encephalopathy Code(s): K72.90 - HEPATIC FAILURE, UNSPECIFIED WITHOUT COMA (4) Cirrhosis Code(s): K74.60 - UNSPECIFIED CIRRHOSIS OF LIVER Qualifiers: (5) Hepatitis C Code(s): B19.20 - UNSPECIFIED VIRAL HEPATITIS C WITHOUT HEPATIC COMA Qualifiers: (6) Hypertension Code(s): I10 - ESSENTIAL (PRIMARY) HYPERTENSION (7) Anemia Assessment/Plan: stool for occult blood gi eval Code(s): D64.9 - ANEMIA, UNSPECIFIED
[2019-09-15] MEDS: SODIUM CHLORIDE 1,000 ML IV SCH ×2 (05:55→22:28)
--- NOTE | 2019-09-15 06:35 | HOSP ---
Subjective - Review of Symptoms Events since last encounter: Hospitalist Encounter Informed of gram + Cocci in cluster for Blood Cultures. Ordered ID consult RN to inform Dr Hankins of the results Physical Examination Vital Signs: Vital Signs Temperature 98.2 F 09/14/19 22:00 Pulse Rate 59 L 09/14/19 22:00 Respiratory Rate 18 09/14/19 22:00 Blood Pressure 138/80 09/14/19 22:00 O2 Sat by Pulse Oximetry (%) 97 09/14/19 21:00 Labs: CBC, BMP 09/14/19 06:15 09/14/19 06:15
--- NOTE | 2019-09-15 08:36 | PN ---
Progress Note (short form) - Note Progress Note: Neurology Chief Complaint: Altered Mental Status HPI: 68 y/o M with hx of IDDM, HCV, cirrhosis, asthma presenting to the ED for altered mental status from the night prior to admission. per notes, the reported he has appeared more lethargic since evening prior and had to be woken up out of bed to take meds and eat. However he was able to be put to sleep without issues. She noted that he had a fall out of bed. The morning of admission, the patient didnt wake up and was somnolent. He also had emesis and per , reported abd pain. She also states that he hasnt had a BM in 3days despite lactulose. On arrival patient was vomiting and required suctioning. states patient had no fever, cough, SOB, chest pain, hematemesis, BPR, dysuria. CT head was completed and did not show acute changes. Of note, patient was admitted to [facility] last week for therapeutic paracentesis. Was noted to have sscleral icterus, slight jaundice. Most likely toxic metabolic encephalopathy. On labs, ammonia level normal but hemoglobin and hematocrit reduced and suspicious for anemia. Reviewed notes including from GI recommended Rifaximin aand lactulose, viral hepatitis panels as well as possible endoscopy. Defer to primary physician/GI regarding further workup and management. Also mention of positive blood cultures and ID consult. Patient much more awake and alert this morning and knows that he is in the hospital as well as can tell me the date including month and year, mental status seems significantly improved at this point. Active Medications Heparin Sodium (Porcine) (Heparin -) 5,000 unit SQ BID [facility] Last Admin: 09/14/19 21:21 Dose: 5,000 unit Sodium Chloride (Normal Saline -) 1,000 mls @ 75 mls/hr IV ASDIR [facility] Last Admin: 09/15/19 05:55 Dose: 75 mls/hr Lactulose (Cephulac (Oral Use)) 20 gm PO QID [facility] Last Admin: 09/14/19 21:21 Dose: 20 gm Pantoprazole Sodium (Protonix -) 40 mg PO DAILY [facility] Last Admin: 09/14/19 14:48 Dose: 40 mg Rifaximin (Xifaxan -) 550 mg PO BID [facility] Last Admin: 09/14/19 21:22 Dose: 550 mg *Physical Exam Vital Signs Period Temp Pulse Resp BP Sys/Shen Pulse Ox Last 24 Hr 97.6 F-98.7 F 59-77 17-20 136-148/56-81 97-97 PE: GENERAL: somnolent, but arousable to painful stimuli; does not respond to commands HEAD: No signs of trauma, normocephalic, atraumatic EYES: EOMI, scleral icterus, conjunctiva clear ENT: Auricles normal inspection, hearing grossly normal, nares patent, oropharynx clear without exudates. Moist mucosa NECK: Normal ROM, no lymphadenopathy LUNGS: No increased work of breathing, symmetrical chest rise, clear to auscultation bilaterally, no wheezes, crackles or rhonchi HEART: Regular rate and rhythm, normal S1 and S2, no murmurs, peripheral pulses 2+ and equal bilaterally. ABDOMEN: Soft, nondistended, nontender, normoactive bowel sounds. No guarding, no rebound. No masses. No CVAT EXTREMITIES: Normal inspection, Normal range of motion, no edema. No clubbing or cyanosis. NEUROLOGICAL: somnolent, moves extremities equally bilaterally, sensory intact, not following confrontation evaluation SKIN: jaundice CBCD WBC 3.8 K/mm3 (4.0-10.0) L 09/14/19 06:15 RBC 2.67 M/mm3 (4.00-5.60) L 09/14/19 06:15 Hgb 8.1 GM/dL (11.7-16.9) L 09/14/19 06:15 Hct 23.9 % (35.4-49) L 09/14/19 06:15 MCV 89.5 fl (80-96) 09/14/19 06:15 MCHC 33.8 g/dl (32.0-35.9) 09/14/19 06:15 RDW 18.9 % (11.9-15.9) H 09/14/19 06:15 Plt Count 42 K/MM3 (134-434) L 09/14/19 06:15 MPV 10.2 fl (7.5-11.1) 09/14/19 06:15 CMP Sodium 143 mmol/L (136-145) 09/14/19 06:15 Potassium 3.3 mmol/L (3.5-5.1) L 09/14/19 06:15 Chloride 111 mmol/L (98-107) H 09/14/19 06:15 Carbon Dioxide 26 mmol/L (21-32) 09/14/19 06:15 Anion Gap 6 MMOL/L (8-16) L 09/14/19 06:15 BUN 30.2 mg/dL (7-18) H 09/14/19 06:15 Creatinine 1.3 mg/dL (0.55-1.3) 09/14/19 06:15 Random Glucose 184 mg/dL (74-106) H 09/14/19 06:15 Calcium 8.6 mg/dL (8.5-10.1) 09/14/19 06:15 Total Bilirubin 3.7 mg/dL (0.2-1) H 09/14/19 06:15 AST 55 U/L (15-37) H 09/14/19 06:15 ALT 31 U/L (13-61) 09/14/19 06:15 Alkaline Phosphatase 147 U/L (45-117) H 09/14/19 06:15 Total Protein 6.4 g/dl (6.4-8.2) 09/14/19 06:15 Albumin 3.2 g/dl (3.4-5.0) L 09/14/19 06:15 CARDIAC ENZYMES Creatine Kinase 268 U/L (26-308) 09/13/19 12:45 Troponin I < 0.02 ng/ml (0.00-0.05) 09/13/19 12:45 Medical Decision Making 68 y/o M with hx of IDDM, HCV, cirrhosis, asthma presenting to the ED for altered mental status from the night prior to admission. per notes, the reported he has appeared more lethargic since evening prior and had to be woken up out of bed to take meds and eat. However he was able to be put to sleep without issues. She noted that he had a fall out of bed. The morning of admission, the patient didnt wake up and was somnolent. He also had emesis and per , reported abd pain. She also states that he hasnt had a BM in 3days despite lactulose. On arrival patient was vomiting and required suctioning. states patient had no fever, cough, SOB, chest pain, hematemesis, BPR, dysuria. CT head was completed and did not show acute changes. Of note, patient was admitted to [facility] last week for therapeutic paracentesis. Was noted to have sscleral icterus, slight jaundice. Most likely toxic metabolic encephalopathy. On labs, ammonia level normal but hemoglobin and hematocrit reduced and suspicious for anemia. Reviewed notes including from GI recommended Rifaximin aand lactulose, viral hepatitis panels as well as possible endoscopy. Defer to primary physician/GI regarding further workup and management. Also mention of positive blood cultures and ID consult. Patient much more awake and alert this morning and knows that he is in the hospital as well as can tell me the date including month and year, mental status seems significantly improved at this point. Monitor H and H, transfuse as needed, recheck H and H. Elevated glucose as well, optimize and maintain euglycemic range. Continue medication As per GI, reorientation as needed though mental status seems to be near baseline.
--- NOTE | 2019-09-15 10:17 | PN.GI ---
GI Progress Note Subjective: Pt seen/examined at bedside, feeling better, asking to eat. Denies abdominal pain,n/v, fever/chills. Had large brown bm, denies blood. - Objective Vital Signs: Vital Signs Temperature 97.6 F 09/15/19 06:12 Pulse Rate 77 09/15/19 06:12 Respiratory Rate 18 09/15/19 06:12 Blood Pressure 148/81 09/15/19 06:12 O2 Sat by Pulse Oximetry (%) 97 09/14/19 21:00 Constitutional: Well Nourished, No Distress, Calm, Other (Alert/oriented x 3) Cardiovascular: Yes: WNL, Regular Rate and Rhythm, Bradycardia Respiratory: Yes: WNL, Regular, CTA Bilaterally ...Palpate: Yes: Other (Abd soft, nontender, nondistended) Edema: No Labs: CBC, BMP 09/14/19 06:15 09/14/19 06:15 INR, PTT INR 1.44 (0.83-1.09) H 09/13/19 12:45 Problem List - Problems (1) Cirrhosis Assessment/Plan: 68yo male h/o HCV/cirrhosis presenting with altered mental status/ encephalopathy. Clinically improved, moving bowels, no blood. MELD 18. Preliminary blood cultures revealing gram positive bacteremia. -Follow up final culture results (ID consulted) -Repeat hepatitis serologies (HCV quant neg in 03/2019) -Await Abd US -Resume 2gNA diet after ultrasound -Continue lactulose titrate to 2-3 loose bms -Continue to hold diuretics until renal fctn normalized -Will need to clarify prior endoscopies, pt states was done recently at [facility] - would request primary team to please obtain reports. Pending report, may consider EGD to assess for varices once further optimized and prior to discharge Code(s): K74.60 - UNSPECIFIED CIRRHOSIS OF LIVER Qualifiers:
[2019-09-15] MEDS: LACTULOSE 20 GM/30 ML UDC (FOR ORAL USE ONLY) PO SCH ×4 (10:53→22:28)
[2019-09-15] MEDS: RIFAXIMIN 550 MG TABLET (UD) PO SCH ×2 (10:54→22:28)
[2019-09-15] MEDS: HEPARIN NA (PORCINE) 5,000 UNITS/ML 1ML VIAL SQ SCH ×2 (10:54→22:28)
[2019-09-15] MEDS: PANTOPRAZOLE 40 MG TABLET (FP) PO SCH (10:54)
[2019-09-15] MEDS ORDERED: PT OWN MED DRAWER 7, Y5N ONE (13:03)
--- NOTE | 2019-09-15 13:16 | PN ---
Progress Note (short form) - Note Progress Note: ID consult dictated imp/reccd 68 yo man with liver cirrhosis, prior MSSA abscess of the left forearm 2015- admitted 09/13 with lethargy from home asked to see for positive blood culture no fevers no skin breakdown no abdominal pain just returned from ultrasound and ate lunch gram positive bacteremia will treat with vancomycin until cultures are back as he has prior history of MSSA infection and was lethargic on admission further management of cirrhosis per GI Problem List - Problems (1) Bacteremia Code(s): R78.81 - BACTEREMIA (2) Altered mental status Code(s): R41.82 - ALTERED MENTAL STATUS, UNSPECIFIED Qualifiers: Altered mental status type: unspecified Qualified Code(s): R41.82 - Altered mental status, unspecified (3) Cirrhosis Code(s): K74.60 - UNSPECIFIED CIRRHOSIS OF LIVER Qualifiers:
[2019-09-15] MEDS: VANCOMYCIN 1 GRAM (PRE-DOCKED) 1,000 MG/250 ML BAG IVPB SCH (13:32)
[2019-09-15 14:23] LABS: ALBUMIN 3.2 g/dl (3.4-5.0); BILIRUBIN,TOTAL 4.2 mg/dL (0.2-1); BLOOD UREA NITROGEN 25.8 mg/dL (7-18); CALCIUM 8.6 mg/dL (8.5-10.1); CREATININE 1.4 mg/dL (0.55-1.3); POTASSIUM 3.7 mmol/L (3.5-5.1); TOT PROT 6.4 g/dl (6.4-8.2)
--- NOTE | 2019-09-15 17:42 | PN ---
Progress Note, Physician History of Present Illness: previous noted - Current Medication List Current Medications: Active Medications Heparin Sodium (Porcine) (Heparin -) 5,000 unit SQ BID [facility] Last Admin: 09/15/19 10:54 Dose: 5,000 unit Sodium Chloride (Normal Saline -) 1,000 mls @ 75 mls/hr IV ASDIR [facility] Last Admin: 09/15/19 05:55 Dose: 75 mls/hr Vancomycin HCl (Vancomycin (Pre-Docked)) 1,000 mg in 250 mls @ 166.667 mls/hr IVPB Q24H [facility]; Protocol Last Admin: 09/15/19 13:32 Dose: 166.667 mls/hr Lactulose (Cephulac (Oral Use)) 20 gm PO QID [facility] Last Admin: 09/15/19 14:17 Dose: 20 gm Pantoprazole Sodium (Protonix -) 40 mg PO DAILY [facility] Last Admin: 09/15/19 10:54 Dose: 40 mg Rifaximin (Xifaxan -) 550 mg PO BID [facility] Last Admin: 09/15/19 10:54 Dose: 550 mg - Objective Vital Signs: Vital Signs Temperature 98.9 F 09/15/19 14:59 Pulse Rate 77 09/15/19 14:59 Respiratory Rate 17 09/15/19 14:59 Blood Pressure 152/77 09/15/19 14:59 O2 Sat by Pulse Oximetry (%) 97 09/14/19 21:00 Constitutional: Yes: No Distress HENT: Yes: Atraumatic Neck: Yes: Supple Cardiovascular: Yes: Regular Rate and Rhythm Respiratory: Yes: CTA Bilaterally Gastrointestinal: Yes: Normal Bowel Sounds Extremities: Yes: WNL Edema: No Peripheral Pulses WNL: Yes Neurological: Yes: Alert Labs: CBC, BMP 09/14/19 06:15 09/15/19 13:38 INR, PTT INR 1.44 (0.83-1.09) H 09/13/19 12:45 Problem List - Problems (1) Altered mental status Assessment/Plan: doing better continue to monitor Code(s): R41.82 - ALTERED MENTAL STATUS, UNSPECIFIED Qualifiers: Altered mental status type: unspecified Qualified Code(s): R41.82 - Altered mental status, unspecified (2) Aphasia Code(s): R47.01 - APHASIA (3) Hepatic encephalopathy Assessment/Plan: alert gi note reviewed Code(s): K72.90 - HEPATIC FAILURE, UNSPECIFIED WITHOUT COMA (4) Cirrhosis Code(s): K74.60 - UNSPECIFIED CIRRHOSIS OF LIVER Qualifiers: (5) Hepatitis C Code(s): B19.20 - UNSPECIFIED VIRAL HEPATITIS C WITHOUT HEPATIC COMA Qualifiers: (6) Hypertension Code(s): I10 - ESSENTIAL (PRIMARY) HYPERTENSION (7) Anemia Assessment/Plan: stool for occult blood...positive Code(s): D64.9 - ANEMIA, UNSPECIFIED
--- NOTE | 2019-09-15 20:45 | CONS ---
DATE OF CONSULTATION: DATE OF DICTATION: 09/15/2019 INFECTIOUS DISEASE CONSULTATION REQUESTING PHYSICIAN: Wily Hankins M.D. CONSULTING PHYSICIAN: Pamela Frias M.D. HISTORY OF PRESENT ILLNESS: This is a 68-year-old man with past medical history of hepatitis C liver cirrhosis who came to the emergency room with lethargy. He apparently had a fall out of bed, and he apparently had an episode of emesis. He was brought to the ER. This was on the , and I am asked to see him on the at 1:04. Blood culture is positive. He currently is awake and alert. He just ate lunch and is feeling much better. He is allergic to SHELLFISH. PAST MEDICAL HISTORY: Notable for hypertension, hyperlipidemia, asthma, hepatitis C cirrhosis, type 2 diabetes. SURGICAL HISTORY: Not known. MEDICATION: His medications at home include Aricept, Lasix, Levemir, insulin, Protonix, Advair, spironolactone. SOCIAL HISTORY: There is no history of alcohol use. Possible substance use in the past. Former smoker. REVIEW OF SYSTEMS: As per HPI. Currently he has no complaints. PHYSICAL EXAMINATION: General: He is awake and alert. Vital Signs: Temperature is 98.9, pulse is 77, blood pressure 152/77, respiratory rate 17, saturating 97% on room air. HEENT: Normocephalic. Eyes are icteric. Neck: Supple. Lungs: Clear to auscultation. Heart: Regular rate and rhythm. Abdomen: Soft, nontender. He has hepatomegaly on exam. Extremities: Without edema. Skin: He has no skin breakage. He has no phlebitis. LABORATORY: White count is 6.8, hemoglobin 8.1, INR 1.4, BUN and creatinine are 25 and 1.4, urinalysis has no leukocytes and 1 white cell. Blood culture 1 of 4 bottles is growing gram-positive cocci in clusters. He had a CAT scan done which showed mild constipation, no bowel obstruction, liver cirrhosis and portal hypertension and small to moderate ascites. IMPRESSION: In summary, this is a 68-year-old man admitted with a history of liver cirrhosis, prior methicillin-sensitive Staphylococcus aureus abscess of left forearm in 2016. He actually has a well healed scar on his forearm, admitted with lethargy. He now has gram-positive bacteremia. Will treat him with vancomycin until the culture is back given his prior history of methicillin-sensitive Staphylococcus aureus infection and he was lethargic on admission. Further management of cirrhosis per gastrointestinal. PAMELA FRIAS M.D. [id number]
[2019-09-16 07:16] LABS: BASO % 0.9 % (0-2.0); EOS % 4.6 % (0-4.5); HEMATOCRIT 24.8 % (35.4-49); HEMOGLOBIN 8.4 GM/dL (11.7-16.9); LYMPH % 17.2 % (8-40); MCH 30.8 pg (25.7-33.7); MCHC 33.9 g/dl (32.0-35.9); MEAN PLT VOLUME 11.2 fl (7.5-11.1); MONO % 8.2 % (3.8-10.2); NEUT % 69.1 % (42.8-82.8); PLATELET COUNT 50 K/MM3 (134-434); RBC 2.72 M/mm3 (4.00-5.60); RDW 18.4 % (11.9-15.9); WHITE BLOOD COUNT 4.4 K/mm3 (4.0-10.0)
--- NOTE | 2019-09-16 09:20 | PN ---
Progress Note (short form) - Note Progress Note: Neurology Chief Complaint: Altered Mental Status HPI: 68 y/o M with hx of IDDM, HCV, cirrhosis, asthma presenting to the ED for altered mental status from the night prior to admission. per notes, the reported he has appeared more lethargic since evening prior and had to be woken up out of bed to take meds and eat. However he was able to be put to sleep without issues. She noted that he had a fall out of bed. The morning of admission, the patient didnt wake up and was somnolent. He also had emesis and per , reported abd pain. She also states that he hasnt had a BM in 3days despite lactulose. On arrival patient was vomiting and required suctioning. states patient had no fever, cough, SOB, chest pain, hematemesis, BPR, dysuria. CT head was completed and did not show acute changes. Of note, patient was admitted to [facility] last week for therapeutic paracentesis. Was noted to have sscleral icterus, slight jaundice. Most likely toxic metabolic encephalopathy. On labs, ammonia level normal but hemoglobin and hematocrit reduced and suspicious for anemia. Reviewed notes including from GI recommended Rifaximin aand lactulose, viral hepatitis panels as well as possible endoscopy. Defer to primary physician/GI regarding further workup and management. Also mention of positive blood cultures and ID consult. Patient much more awake and alert this morning and knows that he is in the hospital as well as can tell me the date including month and year, mental status seems significantly improved at this point. Informed him that he does have underlying infection which is what may be causing his fatigue and diminished mental status, patient verbalized understanding and informed him that he is receiving antibioticsfor treatment of his infectionand he was appreciative of this. Active Medications Heparin Sodium (Porcine) (Heparin -) 5,000 unit SQ BID [facility] Last Admin: 09/15/19 22:28 Dose: 5,000 unit Sodium Chloride (Normal Saline -) 1,000 mls @ 75 mls/hr IV ASDIR [facility] Last Admin: 09/15/19 22:28 Dose: 75 mls/hr Vancomycin HCl (Vancomycin (Pre-Docked)) 1,000 mg in 250 mls @ 166.667 mls/hr IVPB Q24H [facility]; Protocol Last Admin: 09/15/19 13:32 Dose: 166.667 mls/hr Lactulose (Cephulac (Oral Use)) 20 gm PO QID [facility] Last Admin: 09/15/19 22:28 Dose: 20 gm Pantoprazole Sodium (Protonix -) 40 mg PO DAILY [facility] Last Admin: 09/15/19 10:54 Dose: 40 mg Rifaximin (Xifaxan -) 550 mg PO BID [facility] Last Admin: 09/15/19 22:28 Dose: 550 mg *Physical Exam Vital Signs Period Temp Pulse Resp BP Sys/Shen Pulse Ox Last 24 Hr 98.4 F-98.9 F 55-80 17-18 120-154/63-77 100 GENERAL: somnolent, but arousable to painful stimuli; does not respond to commands HEAD: No signs of trauma, normocephalic, atraumatic EYES: EOMI, scleral icterus, conjunctiva clear ENT: Auricles normal inspection, hearing grossly normal, nares patent, oropharynx clear without exudates. Moist mucosa NECK: Normal ROM, no lymphadenopathy LUNGS: No increased work of breathing, symmetrical chest rise, clear to auscultation bilaterally, no wheezes, crackles or rhonchi HEART: Regular rate and rhythm, normal S1 and S2, no murmurs, peripheral pulses 2+ and equal bilaterally. ABDOMEN: Soft, nondistended, nontender, normoactive bowel sounds. No guarding, no rebound. No masses. No CVAT EXTREMITIES: Normal inspection, Normal range of motion, no edema. No clubbing or cyanosis. NEUROLOGICAL: somnolent, moves extremities equally bilaterally, sensory intact, not following confrontation evaluation SKIN: jaundice CBCD WBC 4.4 K/mm3 (4.0-10.0) 09/16/19 06:15 RBC 2.72 M/mm3 (4.00-5.60) L 09/16/19 06:15 Hgb 8.4 GM/dL (11.7-16.9) L 09/16/19 06:15 Hct 24.8 % (35.4-49) L 09/16/19 06:15 MCV 91.0 fl (80-96) 09/16/19 06:15 MCHC 33.9 g/dl (32.0-35.9) 09/16/19 06:15 RDW 18.4 % (11.9-15.9) H 09/16/19 06:15 Plt Count 50 K/MM3 (134-434) L 09/16/19 06:15 MPV 11.2 fl (7.5-11.1) H 09/16/19 06:15 CMP Sodium 142 mmol/L (136-145) 09/15/19 13:38 Potassium 3.7 mmol/L (3.5-5.1) 09/15/19 13:38 Chloride 112 mmol/L (98-107) H 09/15/19 13:38 Carbon Dioxide 25 mmol/L (21-32) 09/15/19 13:38 Anion Gap 5 MMOL/L (8-16) L 09/15/19 13:38 BUN 25.8 mg/dL (7-18) H 09/15/19 13:38 Creatinine 1.4 mg/dL (0.55-1.3) H 09/15/19 13:38 Random Glucose 347 mg/dL (74-106) H 09/15/19 13:38 Calcium 8.6 mg/dL (8.5-10.1) 09/15/19 13:38 Total Bilirubin 4.2 mg/dL (0.2-1) H 09/15/19 13:38 AST 67 U/L (15-37) H 09/15/19 13:38 ALT 38 U/L (13-61) 09/15/19 13:38 Alkaline Phosphatase 162 U/L (45-117) H 09/15/19 13:38 Total Protein 6.4 g/dl (6.4-8.2) 09/15/19 13:38 Albumin 3.2 g/dl (3.4-5.0) L 09/15/19 13:38 CARDIAC ENZYMES Creatine Kinase 268 U/L (26-308) 09/13/19 12:45 Troponin I < 0.02 ng/ml (0.00-0.05) 09/13/19 12:45 Medical Decision Making 68 y/o M with hx of IDDM, HCV, cirrhosis, asthma presenting to the ED for altered mental status from the night prior to admission. per notes, the reported he has appeared more lethargic since evening prior and had to be woken up out of bed to take meds and eat. However he was able to be put to sleep without issues. She noted that he had a fall out of bed. The morning of admission, the patient didnt wake up and was somnolent. He also had emesis and per , reported abd pain. She also states that he hasnt had a BM in 3days despite lactulose. On arrival patient was vomiting and required suctioning. states patient had no fever, cough, SOB, chest pain, hematemesis, BPR, dysuria. CT head was completed and did not show acute changes. Of note, patient was admitted to [facility] last week for therapeutic paracentesis. Was noted to have sscleral icterus, slight jaundice. Most likely toxic metabolic encephalopathy. On labs, ammonia level normal but hemoglobin and hematocrit reduced and suspicious for anemia. Reviewed notes including from GI recommended Rifaximin aand lactulose, viral hepatitis panels as well as possible endoscopy. Defer to primary physician/GI regarding further workup and management. Also mention of positive blood cultures and ID consult. Patient much more awake and alert this morning and knows that he is in the hospital as well as can tell me the date including month and year, mental status seems significantly improved at this point. Informed him that he does have underlying infection which is what may be causing his fatigue and diminished mental status, patient verbalized understanding and informed him that he is receiving antibioticsfor treatment of his infectionand he was appreciative of this. H and H essentially stable this AM, transfuse as needed, recheck H and H as per primary. Optimize and maintain euglycemic range. Continue medication as per GI, reorientation as needed though mental status seems to be near baseline.
[2019-09-16] MEDS: RIFAXIMIN 550 MG TABLET (UD) PO SCH ×2 (10:05→21:30)
[2019-09-16] MEDS: LACTULOSE 20 GM/30 ML UDC (FOR ORAL USE ONLY) PO SCH ×4 (10:05→21:30)
[2019-09-16] MEDS: HEPARIN NA (PORCINE) 5,000 UNITS/ML 1ML VIAL SQ SCH ×2 (10:05→21:30)
[2019-09-16] MEDS: PANTOPRAZOLE 40 MG TABLET (FP) PO SCH (10:05)
[2019-09-16] MEDS ORDERED: PT OWN MED DRAWER 7, Y5N ONE (14:36)
[2019-09-16] MEDS: VANCOMYCIN 1 GRAM (PRE-DOCKED) 1,000 MG/250 ML BAG IVPB SCH (15:06)
--- NOTE | 2019-09-16 16:59 | PN ---
Progress Note, Physician - Current Medication List Current Medications: Active Medications Heparin Sodium (Porcine) (Heparin -) 5,000 unit SQ BID [facility] Last Admin: 09/16/19 10:05 Dose: 5,000 unit Sodium Chloride (Normal Saline -) 1,000 mls @ 75 mls/hr IV ASDIR [facility] Last Admin: 09/15/19 22:28 Dose: 75 mls/hr Lactulose (Cephulac (Oral Use)) 20 gm PO QID [facility] Last Admin: 09/16/19 14:08 Dose: 20 gm Pantoprazole Sodium (Protonix -) 40 mg PO DAILY [facility] Last Admin: 09/16/19 10:05 Dose: 40 mg Rifaximin (Xifaxan -) 550 mg PO BID [facility] Last Admin: 09/16/19 10:05 Dose: 550 mg - Objective Vital Signs: Vital Signs Temperature 99.0 F 09/16/19 15:36 Pulse Rate 78 09/16/19 15:36 Respiratory Rate 18 09/16/19 15:36 Blood Pressure 141/71 09/16/19 15:36 O2 Sat by Pulse Oximetry (%) 100 09/16/19 09:00 Constitutional: Yes: No Distress HENT: Yes: Atraumatic Neck: Yes: Supple Cardiovascular: Yes: Regular Rate and Rhythm Respiratory: Yes: CTA Bilaterally Gastrointestinal: Yes: Normal Bowel Sounds Extremities: Yes: WNL Edema: No Neurological: Yes: Alert Labs: CBC, BMP 09/16/19 06:15 09/15/19 13:38 INR, PTT INR 1.44 (0.83-1.09) H 09/13/19 12:45 Problem List - Problems (1) Altered mental status Assessment/Plan: doing better continue to monitor Code(s): R41.82 - ALTERED MENTAL STATUS, UNSPECIFIED Qualifiers: Altered mental status type: unspecified Qualified Code(s): R41.82 - Altered mental status, unspecified (2) Aphasia Code(s): R47.01 - APHASIA (3) Hepatic encephalopathy Assessment/Plan: alert doing well Code(s): K72.90 - HEPATIC FAILURE, UNSPECIFIED WITHOUT COMA (4) Cirrhosis Code(s): K74.60 - UNSPECIFIED CIRRHOSIS OF LIVER Qualifiers: (5) Hepatitis C Code(s): B19.20 - UNSPECIFIED VIRAL HEPATITIS C WITHOUT HEPATIC COMA Qualifiers: (6) Hypertension Code(s): I10 - ESSENTIAL (PRIMARY) HYPERTENSION (7) Anemia Assessment/Plan: stool for occult blood...positive fu cbc prbc if needed Code(s): D64.9 - ANEMIA, UNSPECIFIED (8) Bacteremia Assessment/Plan: d/w id no need for abx 1 bottle is positive which could be contamination Code(s): R78.81 - BACTEREMIA
[2019-09-16] MEDS: SODIUM CHLORIDE 1,000 ML IV SCH (18:22)
[2019-09-16 20:01] LABS: EOS % 4.9 % (0-4.5); HEMATOCRIT 25.1 % (35.4-49); HEMOGLOBIN 8.2 GM/dL (11.7-16.9); LYMPH % 15.4 % (8-40); MCH 30.3 pg (25.7-33.7); MCHC 32.9 g/dl (32.0-35.9); MEAN CELL VOLUME 92.1 fl (80-96); MEAN PLT VOLUME 10.9 fl (7.5-11.1); MONO % 9.1 % (3.8-10.2); NEUT % 69.6 % (42.8-82.8); PLATELET COUNT 40 K/MM3 (134-434); RBC 2.72 M/mm3 (4.00-5.60); RDW 18.2 % (11.9-15.9); WHITE BLOOD COUNT 3.5 K/mm3 (4.0-10.0)
[2019-09-16 20:40] LABS: ALBUMIN 3.2 g/dl (3.4-5.0); BILIRUBIN,TOTAL 2.8 mg/dL (0.2-1); BLOOD UREA NITROGEN 24.6 mg/dL (7-18); CALCIUM 8.1 mg/dL (8.5-10.1); CREATININE 1.4 mg/dL (0.55-1.3); POTASSIUM 3.6 mmol/L (3.5-5.1); TOT PROT 6.4 g/dl (6.4-8.2)
[2019-09-17] MEDS: SODIUM CHLORIDE 1,000 ML IV SCH ×3 (01:07→16:30)
[2019-09-17] MEDS ORDERED: INSULIN (NOVOLOG) ASPART 100 UNITS/ML 10ML VIAL ONE (07:33)
--- NOTE | 2019-09-17 09:08 | PN ---
Progress Note (short form) - Note Progress Note: Neurology Chief Complaint: Altered Mental Status HPI: 68 y/o M with hx of IDDM, HCV, cirrhosis, asthma presenting to the ED for altered mental status from the night prior to admission. per notes, the reported he has appeared more lethargic since evening prior and had to be woken up out of bed to take meds and eat. However he was able to be put to sleep without issues. She noted that he had a fall out of bed. The morning of admission, the patient didnt wake up and was somnolent. He also had emesis and per , reported abd pain. She also states that he hasnt had a BM in 3days despite lactulose. On arrival patient was vomiting and required suctioning. states patient had no fever, cough, SOB, chest pain, hematemesis, BPR, dysuria. CT head was completed and did not show acute changes. Of note, patient was admitted to [facility] last week for therapeutic paracentesis. Was noted to have sscleral icterus, slight jaundice. Most likely toxic metabolic encephalopathy. On labs, ammonia level normal but hemoglobin and hematocrit reduced and suspicious for anemia. Reviewed notes including from GI recommended Rifaximin aand lactulose, viral hepatitis panels as well as possible endoscopy. Defer to primary physician/GI regarding further workup and management. Also mention of positive blood cultures and ID consult. Patient much more awake and alert this morning and knows that he is in the hospital as well as can tell me the date including month and year, mental status seems significantly improved at this point. not currently on antibiotics however still on lactulose and rifaximin, neurologically remained stable. Active Medications Heparin Sodium (Porcine) (Heparin -) 5,000 unit SQ BID [facility] Last Admin: 09/16/19 21:30 Dose: 5,000 unit Sodium Chloride (Normal Saline -) 1,000 mls @ 75 mls/hr IV ASDIR [facility] Last Admin: 09/17/19 01:07 Dose: 75 mls/hr Lactulose (Cephulac (Oral Use)) 20 gm PO QID [facility] Last Admin: 09/16/19 21:30 Dose: 20 gm Pantoprazole Sodium (Protonix -) 40 mg PO DAILY [facility] Last Admin: 09/16/19 10:05 Dose: 40 mg Rifaximin (Xifaxan -) 550 mg PO BID [facility] Last Admin: 09/16/19 21:30 Dose: 550 mg *Physical Exam Vital Signs Period Temp Pulse Resp BP Sys/Shen Pulse Ox Last 24 Hr 97.9 F-99.0 F 71-84 18-18 118-148/59-71 100 GENERAL: somnolent, but arousable to painful stimuli; does not respond to commands HEAD: No signs of trauma, normocephalic, atraumatic EYES: EOMI, scleral icterus, conjunctiva clear ENT: Auricles normal inspection, hearing grossly normal, nares patent, oropharynx clear without exudates. Moist mucosa NECK: Normal ROM, no lymphadenopathy LUNGS: No increased work of breathing, symmetrical chest rise, clear to auscultation bilaterally, no wheezes, crackles or rhonchi HEART: Regular rate and rhythm, normal S1 and S2, no murmurs, peripheral pulses 2+ and equal bilaterally. ABDOMEN: Soft, nondistended, nontender, normoactive bowel sounds. No guarding, no rebound. No masses. No CVAT EXTREMITIES: Normal inspection, Normal range of motion, no edema. No clubbing or cyanosis. NEUROLOGICAL: somnolent, moves extremities equally bilaterally, sensory intact, not following confrontation evaluation SKIN: jaundice CBCD WBC 3.5 K/mm3 (4.0-10.0) L 09/16/19 18:35 RBC 2.72 M/mm3 (4.00-5.60) L 09/16/19 18:35 Hgb 8.2 GM/dL (11.7-16.9) L 09/16/19 18:35 Hct 25.1 % (35.4-49) L 09/16/19 18:35 MCV 92.1 fl (80-96) 09/16/19 18:35 MCHC 32.9 g/dl (32.0-35.9) 09/16/19 18:35 RDW 18.2 % (11.9-15.9) H 09/16/19 18:35 Plt Count 40 K/MM3 (134-434) L 09/16/19 18:35 MPV 10.9 fl (7.5-11.1) 09/16/19 18:35 CMP Sodium 138 mmol/L (136-145) 09/16/19 18:35 Potassium 3.6 mmol/L (3.5-5.1) 09/16/19 18:35 Chloride 108 mmol/L (98-107) H 09/16/19 18:35 Carbon Dioxide 23 mmol/L (21-32) 09/16/19 18:35 Anion Gap 6 MMOL/L (8-16) L 09/16/19 18:35 BUN 24.6 mg/dL (7-18) H 09/16/19 18:35 Creatinine 1.4 mg/dL (0.55-1.3) H 09/16/19 18:35 Random Glucose 351 mg/dL (74-106) H 09/16/19 18:35 Calcium 8.1 mg/dL (8.5-10.1) L 09/16/19 18:35 Total Bilirubin 2.8 mg/dL (0.2-1) H 09/16/19 18:35 AST 105 U/L (15-37) H 09/16/19 18:35 ALT 60 U/L (13-61) 09/16/19 18:35 Alkaline Phosphatase 194 U/L (45-117) H 09/16/19 18:35 Total Protein 6.4 g/dl (6.4-8.2) 09/16/19 18:35 Albumin 3.2 g/dl (3.4-5.0) L 09/16/19 18:35 CARDIAC ENZYMES Creatine Kinase 268 U/L (26-308) 09/13/19 12:45 Troponin I < 0.02 ng/ml (0.00-0.05) 09/13/19 12:45 Medical Decision Making 68 y/o M with hx of IDDM, HCV, cirrhosis, asthma presenting to the ED for altered mental status from the night prior to admission. per notes, the reported he has appeared more lethargic since evening prior and had to be woken up out of bed to take meds and eat. However he was able to be put to sleep without issues. She noted that he had a fall out of bed. The morning of admission, the patient didnt wake up and was somnolent. He also had emesis and per , reported abd pain. She also states that he hasnt had a BM in 3days despite lactulose. On arrival patient was vomiting and required suctioning. states patient had no fever, cough, SOB, chest pain, hematemesis, BPR, dysuria. CT head was completed and did not show acute changes. Of note, patient was admitted to [facility] last week for therapeutic paracentesis. Was noted to have sscleral icterus, slight jaundice. Most likely toxic metabolic encephalopathy. On labs, ammonia level normal but hemoglobin and hematocrit reduced and suspicious for anemia. Reviewed notes including from GI recommended Rifaximin aand lactulose, viral hepatitis panels as well as possible endoscopy. Defer to primary physician/GI regarding further workup and management. Also mention of positive blood cultures and ID consult. Patient much more awake and alert this morning and knows that he is in the hospital as well as can tell me the date including month and year, mental status seems significantly improved at this point. not currently on antibiotics however still on lactulose and rifaximin, neurologically remained stable. Transfuse as needed, recheck H and H as per primary. Optimize and maintain euglycemic range. Continue medication as per GI, reorientation as needed though mental status seems to be near baseline. (
[2019-09-17 11:06] LABS: BASO % 0.8 % (0-2.0); EOS % 2.7 % (0-4.5); HEMATOCRIT 17.9 % (35.4-49); LYMPH % 12.8 % (8-40); MCH 30.3 pg (25.7-33.7); MCHC 32.8 g/dl (32.0-35.9); MEAN CELL VOLUME 92.4 fl (80-96); MEAN PLT VOLUME 10.5 fl (7.5-11.1); MONO % 5.5 % (3.8-10.2); NEUT % 78.2 % (42.8-82.8); PLATELET COUNT 50 K/MM3 (134-434); RBC 1.93 M/mm3 (4.00-5.60); RDW 18.5 % (11.9-15.9); WHITE BLOOD COUNT 4.7 K/mm3 (4.0-10.0)
[2019-09-17] MEDS: LACTULOSE 20 GM/30 ML UDC (FOR ORAL USE ONLY) PO SCH (11:22)
[2019-09-17] MEDS: HEPARIN NA (PORCINE) 5,000 UNITS/ML 1ML VIAL SQ SCH (11:23)
[2019-09-17] MEDS: RIFAXIMIN 550 MG TABLET (UD) PO SCH (11:23)
[2019-09-17 11:24] LABS: INR 1.8 (0.83-1.09); PROTHROMBIN TIME (PATIENT) 21.4 SEC (9.7-13.0)
[2019-09-17] MEDS: PANTOPRAZOLE 40 MG TABLET (FP) PO SCH (11:25)
[2019-09-17 11:28] LABS: HEMOGLOBIN 5.9 GM/dL (11.7-16.9)
--- NOTE | 2019-09-17 11:31 | CONSULT ---
Consultation: REQUESTING PROVIDER: CONSULT REQUEST: ICU HISTORY OF PRESENT ILLNESS: 68 y/o M with hx of IDDM1, HCV, cirrhosis, asthma originally presented for altered mental status. reported he was more lethargic, endorsed vomiting, AB pain, and emesis. Pt undergone therapeutic paracentesis at [facility] last week. In the ED, was noted to have scleral icterus, jaundice. Admitted to the floor for symptoms attributed to toxic metabolic encephalopathy, improved with lactulose and rifaximin. This morning, pt had one bloody bowel movement w 400mL dark red blood. Denies having bloody bowel movements before. On heparin. Hemodynamically stable. Pt denies fever/chills, nausea/vomiting, weakness, chest/AB pain, SOB, urinary changes. Denies recent smoking, alcohol, illicit drug use REVIEW OF SYSTEMS: CONSTITUTIONAL: Absent: fever, chills, diaphoresis, generalized weakness, malaise HEENT: Absent: rhinorrhea, nasal congestion, throat pain, ear pain, eye pain, visual changes CARDIOVASCULAR: Absent: chest pain, syncope, palpitations, lightheadedness RESPIRATORY: Absent: cough, shortness of breath, wheezing, stridor, hemoptysis GASTROINTESTINAL: + distension, hematochezeia Absent: abdominal pain, nausea, vomiting, diarrhea, constipation GENITOURINARY: Absent: dysuria, frequency, urgency, hematuria, flank pain, genital pain MUSCULOSKELETAL: Absent: myalgia, arthralgia, back pain, neck pain SKIN: Absent: rash, itching ENDOCRINE: Absent: heat intolerance, cold intolerance NEUROLOGIC: Absent: headache, focal weakness or paresthesias, dizziness seizure PSYCHIATRIC: Absent: anxiety, depression PHYSICAL EXAMINATION Vital Signs - 24 hr 09/16/19 09/16/19 09/16/19 15:36 18:00 21:00 Temperature 99.0 F 97.9 F Pulse Rate 78 71 Respiratory 18 18 18 Rate Blood Pressure 141/71 146/59 L O2 Sat by Pulse 100 Oximetry (%) 09/16/19 09/17/19 09/17/19 22:00 06:10 09:00 Temperature 98.3 F 99.0 F 98.7 F Pulse Rate 76 84 86 Respiratory 18 18 18 Rate Blood Pressure 118/60 120/67 117/53 L O2 Sat by Pulse 99 Oximetry (%) 09/17/19 09/17/19 09:45 10:00 Temperature Pulse Rate 85 Respiratory 18 Rate Blood Pressure 115/56 L O2 Sat by Pulse 100 Oximetry (%) GENERAL: Awake, alert, and fully oriented, in no acute distress. HEAD: Normal with no signs of trauma. Mild jaundice LUNGS: Breath sounds equal, clear to auscultation bilaterally. No wheezes, and no crackles. No accessory muscle use. HEART: Regular rate and rhythm, normal S1 and S2 without murmur, rub or gallop. ABDOMEN: Distended. Soft, nontender, normoactive bowel sounds, no guarding, no rebound, no masses. UPPER EXTREMITIES: warm, well-perfused. No cyanosis. Cap refill <2 seconds. LOWER EXTREMITIES: warm, well-perfused. No calf tenderness. +1 minnie pitting edema RECTAL: numerous non bleeding hemorrhoids, no external gross bleeding noted. + rectal tone NEUROLOGICAL: AOx3. Normal speech. No asterixis Laboratory Results - last 24 hr 09/16/19 09/16/19 09/16/19 06:15 18:35 18:35 WBC 3.5 L RBC 2.72 L Hgb 8.2 L Hct 25.1 L MCV 92.1 MCH 30.3 MCHC 32.9 RDW 18.2 H Plt Count 40 L MPV 10.9 Absolute Neuts (auto) 2.4 Neutrophils % 69.6 Lymphocytes % 15.4 Monocytes % 9.1 Eosinophils % 4.9 H Basophils % 1.0 Nucleated RBC % 0 PT with INR INR Sodium 138 Potassium 3.6 Chloride 108 H Carbon Dioxide 23 Anion Gap 6 L BUN 24.6 H Creatinine 1.4 H Est GFR (CKD-EPI)AfAm 58.58 Est GFR (CKD-EPI)NonAf 50.54 Random Glucose 351 H Calcium 8.1 L Total Bilirubin 2.8 H AST 105 H ALT 60 Alkaline Phosphatase 194 H Total Protein 6.4 Albumin 3.2 L Tumor Marker AFP 1.0 09/17/19 10:22 WBC RBC Hgb Hct MCV MCH MCHC RDW Plt Count MPV Absolute Neuts (auto) Neutrophils % Lymphocytes % Monocytes % Eosinophils % Basophils % Nucleated RBC % PT with INR 21.40 H INR 1.80 H Sodium Potassium Chloride Carbon Dioxide Anion Gap BUN Creatinine Est GFR (CKD-EPI)AfAm Est GFR (CKD-EPI)NonAf Random Glucose Calcium Total Bilirubin AST ALT Alkaline Phosphatase Total Protein Albumin Tumor Marker AFP Active Medications Generic Name Dose Route Start Last Admin Trade Name Lizbeth PRN Reason Stop Dose Admin Heparin Sodium (Porcine) 5,000 unit 09/13/19 22:00 09/17/19 11:23 Heparin - SQ Not Given BID [facility] Sodium Chloride 1,000 mls @ 75 mls/hr 09/13/19 17:45 09/17/19 01:07 Normal Saline - IV 75 mls/hr ASDIR [facility] Administration Lactulose 20 gm 09/13/19 18:00 09/17/19 11:22 Cephulac (Oral Use) PO Not Given QID [facility] Pantoprazole Sodium 40 mg 09/14/19 10:00 09/17/19 11:25 Protonix - PO 40 mg DAILY [facility] Administration Rifaximin 550 mg 09/14/19 13:30 09/17/19 11:23 Xifaxan - PO Not Given BID [facility] ASSESSMENT/PLAN: 68 y/o M with hx of IDDM1, HCV, cirrhosis, asthma originally presented for altered mental status and jaundice 2/2 toxic metabolic encephalopathy. On 09/17 , pt had one bloody bowel movement GI - hematochezia likely lower GI source, hx cirrhosis, HCV - planned EGD / colonoscopy, not today - + FOBT - started octreotide drip - switched PO to IV protonix - endoscopy 11/30/18 showed normal esophagus w/o varices, stomach with moderate portal hypertensive gastropathy w/o varices, one small non-bleeding duodenal ulcer - holding lactulose, rifaximin d/t GI bleed - NPO - DVT ppx - appreciate GI recs Heme - anemia, thrombocytopenia - Hgb 8.2 to 5.9 - plt 50 - ordered 10u vitamin K - given 4 RBC, 2 FFP, 1 plt per anesthesia - serial H&Hs Cards - hemodynamically stable - holding heparin d/t bleeding - avoid QT prolonging medication d/t prolonged QTc 506 Pulm - hx asthma - breathing RA, O2sat wnl Endo - hx IDDM - holding home insulin while NPO - LAKEISHA - Cr 1.4 to 1.6 likely d/t poor PO hydration - started IV fluids - I/O ID - afebrile, WBC wnl - started rocephin for variceal ppx FEN - NS @100mL/hr - hyperCl - NPO PPX - SCD - protonix Dispo: ICU. Thank you for this consult Visit type - Emergency Visit Emergency Visit: Yes ED Registration Date: 09/13/19 Care time: The patient presented to the Emergency Department on the above date and was hospitalized for further evaluation of their emergent condition. - New Patient This patient is new to me today: Yes Date on this admission: 09/17/19 - Critical Care Critical Care patient: Yes Total Critical Care Time (in minutes): 40 Critical Care Statement: The care of this patient involved high complexity decision making to prevent further life threatening deterioration of the patient 's condition and/or to evaluate & treat vital organ system(s) failure or risk of failure. ATTENDING PHYSICIAN STATEMENT I saw and evaluated the patient. I reviewed the resident's note and discussed the case with the resident. I agree with the resident's findings and plan as documented. SUBJECTIVE: OBJECTIVE: ASSESSMENT AND PLAN:
[2019-09-17 11:39] LABS: ALBUMIN 2.4 g/dl (3.4-5.0); BLOOD UREA NITROGEN 26.8 mg/dL (7-18); CALCIUM 7.6 mg/dL (8.5-10.1); CREATININE 1.6 mg/dL (0.55-1.3); POTASSIUM 4.5 mmol/L (3.5-5.1); TOT PROT 5.2 g/dl (6.4-8.2)
[2019-09-17] MEDS ORDERED: PANTOPRAZOLE SODIUM 80 MG in SODIUM CHLORIDE 100 ML IVPB SCH (11:45)
[2019-09-17] MEDS ORDERED: INSULIN (LEVEMIR) 100 UNITS/ML UNITS SQ ONE (11:54)
[2019-09-17] MEDS ORDERED: SODIUM CHLORIDE 1,000 ML IV STA ×2 (11:58→14:10)
[2019-09-17] MEDS ORDERED: CEFTRIAXONE 2 GM in DEXTROSE 5%-WATER 100 ML IVPB SCH (12:00)
[2019-09-17] MEDS ORDERED: PANTOPRAZOLE SODIUM 160 MG in SODIUM CHLORIDE 290 ML IVPB SCH (12:15)
--- NOTE | 2019-09-17 12:17 | PN ---
Progress Note, Physician History of Present Illness: events noted gi bleeding transfer to icu gi follow up - Current Medication List Current Medications: Active Medications Sodium Chloride (Normal Saline -) 1,000 mls @ 100 mls/hr IV ASDIR [facility] Ceftriaxone Sodium 2 gm/ (Dextrose) 100 mls @ 200 mls/hr IVPB DAILY [facility]; Protocol Octreotide Acetate 200 mcg/Octreotide Acetate 1,000 mcg/Dextrose 500 mls @ 20.833 mls/hr IVPB ASDIR [facility] Sodium Chloride (Normal Saline -) 1,000 mls @ 1,000 mls/hr IV ASDIR STA Stop: 09/17/19 12:57 Pantoprazole Sodium 160 mg/ (Sodium Chloride) 290 mls @ 14.5 mls/hr IVPB Q20H [facility] Insulin Detemir (Levemir Vial) 6 units SQ DAILY ONE Stop: 09/17/19 11:55 - Objective Vital Signs: Vital Signs Temperature 98.7 F 09/17/19 09:00 Pulse Rate 86 09/17/19 12:13 Respiratory Rate 18 09/17/19 12:13 Blood Pressure 109/53 L 09/17/19 12:13 O2 Sat by Pulse Oximetry (%) 100 09/17/19 10:00 Constitutional: Yes: No Distress HENT: Yes: Atraumatic Neck: Yes: Supple Cardiovascular: Yes: Regular Rate and Rhythm Respiratory: Yes: CTA Bilaterally Gastrointestinal: Yes: Normal Bowel Sounds Extremities: Yes: WNL Neurological: Yes: Alert, Oriented Labs: CBC, BMP 09/17/19 10:22 09/17/19 10:22 INR, PTT INR 1.80 (0.83-1.09) H 09/17/19 10:22 Problem List - Problems (1) Altered mental status Assessment/Plan: intubated had egd Code(s): R41.82 - ALTERED MENTAL STATUS, UNSPECIFIED Qualifiers: Altered mental status type: unspecified Qualified Code(s): R41.82 - Altered mental status, unspecified (2) Aphasia Code(s): R47.01 - APHASIA (3) Hepatic encephalopathy Assessment/Plan: alert doing well Code(s): K72.90 - HEPATIC FAILURE, UNSPECIFIED WITHOUT COMA (4) Cirrhosis Code(s): K74.60 - UNSPECIFIED CIRRHOSIS OF LIVER Qualifiers: Hepatic cirrhosis type: unspecified hepatic cirrhosis Ascites presence: with ascites Qualified Code(s): K74.60 - Unspecified cirrhosis of liver; R18.8 - Other ascites (5) Hepatitis C Code(s): B19.20 - UNSPECIFIED VIRAL HEPATITIS C WITHOUT HEPATIC COMA Qualifiers: Viral hepatitis chronicity: chronic Hepatic coma status: without hepatic coma Qualified Code(s): B18.2 - Chronic viral hepatitis C (6) Hypertension Code(s): I10 - ESSENTIAL (PRIMARY) HYPERTENSION Qualifiers: Hypertension type: essential hypertension Qualified Code(s): I10 - Essential (primary) hypertension (7) Anemia Assessment/Plan: s/p egd prbc transfusion Code(s): D64.9 - ANEMIA, UNSPECIFIED (8) Bacteremia Assessment/Plan: d/w id no need for abx 1 bottle is positive which could be contamination Code(s): R78.81 - BACTEREMIA (9) GI bleeding Assessment/Plan: follow up h/h transfuse prbc...2 units gi follow up Code(s): K92.2 - GASTROINTESTINAL HEMORRHAGE, UNSPECIFIED
[2019-09-17] MEDS ORDERED: PHYTONADIONE 10 MG/1 ML AMP SQ ONE (12:21)
[2019-09-17] MEDS ORDERED: OCTREOTIDE ACETATE 50 MCG/1 ML - 1 ML VIAL IVPUSH ONE (12:23)
[2019-09-17] MEDS ORDERED: PANTOPRAZOLE SODIUM 40 MG VIAL IVPUSH SCH (12:30)
--- NOTE | 2019-09-17 12:45 | PN.GI ---
GI Progress Note Subjective: Had rectal bleeding today with drop in H/H. No N/V or abdominal pain. Had EGD 12/01/[address] Miller that revealed a small duodenal ulcer and no varices. Mr. Diehl believes that he may have had EGD at [facility] "some months ago" but does not recall being told of varcies or having banding performed. He had a small portion of swedish ice and tea as part of clear liquid diet this morning. He is followed by Dr. Isaac at [facility]. Has followed with Dr. Fish as outpatient as well. I discussed case with Dr. Fish. Mr. Diehl has a history of ? cryptogenic cirrhosis per Dr. Fish and did confirm that he follows with Dr. Isaac at [facility]. Was on Heparin 5000 U SC BID for DVT prophylaxis. - Objective Vital Signs: Vital Signs Temperature 98.7 F 09/17/19 09:00 Pulse Rate 86 09/17/19 12:13 Respiratory Rate 18 09/17/19 12:13 Blood Pressure 109/53 L 09/17/19 12:13 O2 Sat by Pulse Oximetry (%) 100 09/17/19 10:00 Constitutional: Calm Eyes: No: Sclera Icterus Cardiovascular: Yes: Regular Rate and Rhythm, Murmur Respiratory: Yes: CTA Bilaterally Gastrointestinal Inspection: No: Distention ...Auscultate: Yes: Normoactive Bowel Sounds ...Palpate: Yes: Soft (protuberant). No: Hepatomegaly, Splenomegaly, Tenderness ...Percussion: Yes: Fluid Wave ...Rectal Exam: Yes: Other (No external lesions, no masses, scant blood on tip of glove.) Edema: No (No LE edema) Neurological: Yes: Alert, Oriented. No: Asterixis Labs: CBC, BMP 09/17/19 10:22 09/17/19 10:22 INR, PTT INR 1.80 (0.83-1.09) H 09/17/19 10:22 Problem List - Problems (1) Rectal bleeding Assessment/Plan: Hemodynamically stable, no further bleeding, however, precipitous drop in H/H. Given h/o liver cirrhosis and previous h/o PUD, discussed plan for EGD with Mr. Diehl to exclude recurrent PUD or varices as cause of current bleeding. Discussed the need for possible banding as well and endotraceal intubation of necessary. Discussed potential risks of the procedure like but not limited to bleeding, perforation requiring surgery to repair, infection sedation medication effects all of which could be potentially life threatening. He has agreed to the procedure. Consent obtained and placed in chart. For now: Patient at my request was transferred to ICU Octreotide has been initiated 50mcg bolus followed by 50mcg/hour Protonix 40mg IV BID Ceftriaxone started NPO Transfuse to keep Hgb around 7 Vitamin K 10mg SC x 1 If unrevealing, will need colonoscopy SC heparin has been discontinued. Did not receive this morning per Mr. Diehl' floor nurse Obtain more information regarding work-up at [facility] Discussed with Dr. Fish. As Mr. Diehl is his outpatient, he will be resuming his care and will be performing EGD. Code(s): K62.5 - HEMORRHAGE OF ANUS AND RECTUM
[2019-09-17] MEDS ORDERED: EPINEPHrine 1:10,000 (P-F SYR) 1 MG/10 ML DISP.SYRIN IM ONE ×2 (15:18→17:20)
[2019-09-17] MEDS: OCTREOTIDE ACETATE 200 MCG, OCTREOTIDE ACETATE 1,000 MCG in DEXTROSE 5%-WATER - 496 ML IVPB SCH (16:14)
[2019-09-17] MEDS ORDERED: DEXTROSE 5%-WATER 100 ML IVPB ONE (16:20)
[2019-09-17] MEDS ORDERED: MIDAZOLAM HCL 2 MG/2 ML SINGLE DOSE VIAL IVPUSH ONE (16:45)
[2019-09-17] MEDS ORDERED: fentaNYL CITRATE 250 MCG/5 ML VIAL ONE (16:52)
[2019-09-17] MEDS: INSULIN SLIDING SCALE (NOVOLOG) 1 VIAL SQ SCH ×2 (17:27→21:17)
[2019-09-17] MEDS ORDERED: PANTOPRAZOLE SODIUM 40 MG VIAL IVPUSH ONE ×2 (17:32→17:45)
[2019-09-17] MEDS ORDERED: PROPOFOL 1,000,000 MCG/100 ML VIAL ONE (18:15)
[2019-09-17] MEDS: PROPOFOL 1,000,000 MCG/100 ML VIAL IVPB SCH ×2 (18:35→21:23)
[2019-09-17] MEDS: PIPERACILLIN/TAZOB 3.375 GM 3.375 GM in DEXTROSE 5%-WATER - 50 ML IVPB SCH ×2 (18:35→20:05)
[2019-09-17] MEDS ORDERED: MIDAZOLAM 100 MG in SODIUM CHLORIDE 100 ML IVPB SCH (18:45)
[2019-09-17] MEDS ORDERED: MIDAZOLAM IN 0.9 % SOD.CHLORID 1 MG/1 ML PLAST..BAG ONE (18:47)
--- NOTE | 2019-09-17 19:27 | PN ---
Progress Note (short form) - Note Progress Note: ~1700 patient started to have coffee ground emesis with acute change in mental status. He was confused and agitated, stating that he could not breath. Patient had three large dark red bloody bowel movements. Dr. Fish was present. Decision was made to immediately take patient for endoscopy. A 2x2mm ulcer with visible vessel was identified in the gastric antrum. The vessel was clipped during endoscopy to achieve hemostatis. Patient returned to the ICU sedated and intubated. Patient sedated on Propofol and Versed. 1 additional unit of PRBC and FFP ordered Continued octreotide drip Started on Protonix drip Repeat CBC, PT/INR, APTT, BMP ordered. Patient with OG tube, wall suctioning with intermittent suctioning started. ABX switched to Zosyn for aspiration pneumonia coverage. Surgery agricultural education professor, Dr. Martinez, consulted. No need for pressors at this time. Will continue to monitor.
[2019-09-17] MEDS: PANTOPRAZOLE SODIUM 80 MG in SODIUM CHLORIDE 100 ML IVPB SCH (19:40)
[2019-09-17] MEDS ORDERED: PIPERACILLIN/TAZOBACTAM 3.375 GM VIAL IVPB ONE (19:47)
[2019-09-17] MEDS ORDERED: DEXTROSE 5%-WATER - 50 ML IVPB ONE (19:48)
[2019-09-17 20:09] LABS: HEP B CORE AB, TOT Negative (Negative)
[2019-09-17 20:46] LABS: HEMATOCRIT 26.7 % (35.4-49); HEMOGLOBIN 8.9 GM/dL (11.7-16.9); MCH 30.4 pg (25.7-33.7); MCHC 33.2 g/dl (32.0-35.9); MEAN CELL VOLUME 91.7 fl (80-96); MEAN PLT VOLUME 9.6 fl (7.5-11.1); PLATELET COUNT 83 K/MM3 (134-434); RBC 2.91 M/mm3 (4.00-5.60); RDW 18.2 % (11.9-15.9); WHITE BLOOD COUNT 11.5 K/mm3 (4.0-10.0)
[2019-09-17 21:01] LABS: ARTERIAL BLD GAS O2 SATURATION 98.3 % (95-98); ARTERIAL BLOOD GAS BASE EXCESS -7.3 meq/l (-2-2); ARTERIAL BLOOD GAS PCO2 44.1 mmHg (35-45); ARTERIAL BLOOD GAS PO2 120 mmHg (80-100); ARTERIAL BLOOD GAS pH 7.25 (7.35-7.45)
[2019-09-17 21:01] LABS: INR 1.44 (0.83-1.09); PROTHROMBIN TIME (PATIENT) 17.1 SEC (9.7-13.0)
[2019-09-17 21:03] LABS: ALLENS TEST POSITIVE
[2019-09-17 21:04] LABS: ACTIVATED PTT 35.1 SECONDS (25.2-36.5)
[2019-09-17 21:30] LABS: BLOOD UREA NITROGEN 31.6 mg/dL (7-18); CREATININE 1.6 mg/dL (0.55-1.3); POTASSIUM 5.7 mmol/L (3.5-5.1)
[2019-09-17 21:37] LABS: CALCIUM 6.9 mg/dL (8.5-10.1)
[2019-09-17] MEDS ORDERED: CALCIUM GLUCONATE 10% - 1,000 MG/10 ML VIAL IVPB ONE (22:08)
[2019-09-18 01:29] LABS: BASO % 0.3 % (0-2.0); EOS % 0.6 % (0-4.5); HEMATOCRIT 22.2 % (35.4-49); HEMOGLOBIN 7.5 GM/dL (11.7-16.9); LYMPH % 6.5 % (8-40); MCH 30.9 pg (25.7-33.7); MEAN PLT VOLUME 9.3 fl (7.5-11.1); MONO % 5.6 % (3.8-10.2); PLATELET COUNT 66 K/MM3 (134-434); RBC 2.44 M/mm3 (4.00-5.60); RDW 17.7 % (11.9-15.9); WHITE BLOOD COUNT 8.2 K/mm3 (4.0-10.0)
[2019-09-18] MEDS ORDERED: SODIUM CHLORIDE 1,000 ML IV STA (01:39)
[2019-09-18] MEDS ORDERED: DEXTROSE 5%-WATER - 50 ML IVPB ONE ×2 (02:57→10:59)
[2019-09-18] MEDS ORDERED: PIPERACILLIN/TAZOBACTAM 3.375 GM VIAL IVPB ONE (02:57)
[2019-09-18] MEDS: PIPERACILLIN/TAZOB 3.375 GM 3.375 GM in DEXTROSE 5%-WATER - 50 ML IVPB SCH ×2 (03:00→16:42)
[2019-09-18] MEDS: PANTOPRAZOLE SODIUM 80 MG in SODIUM CHLORIDE 100 ML IVPB SCH ×3 (03:01→22:56)
[2019-09-18] MEDS: PROPOFOL 1,000,000 MCG/100 ML VIAL IVPB SCH ×2 (03:03→22:56)
--- NOTE | 2019-09-18 04:41 | PN ---
Progress Note (short form) - Note Progress Note: Patient's blood pressure remains marginal with MAP maintained at approx 65. Patient has received two further units PRBC, and IV normal saline boluses since endoscopic procedure. Decision made to initiate massive transfusion protocol. Will transfuse additional unit FFP, and platelets Patient will likely require further endoscopic procedure and/or CTA to identify and control source of bleeding. Case discussed with Dr. Hughes. Recommendations appreciated.
[2019-09-18] MEDS ORDERED: MIDAZOLAM IN 0.9 % SOD.CHLORID 100 MG/100 ML PLAST..BAG IVPB SCH (04:45)
[2019-09-18] MEDS: SODIUM CHLORIDE 1,000 ML IV SCH (06:34)
[2019-09-18] MEDS: INSULIN SLIDING SCALE (NOVOLOG) 1 VIAL SQ SCH ×4 (06:41→23:04)
--- NOTE | 2019-09-18 08:30 | CON.PULM ---
Consult Consult Specialty:: Pulm/CCM Reason for Consultation:: UGIB, resp failure, shock - History of Present Illness Chief Complaint: AMS. GIB History of Present Illness: This is a 68 yo man w/ IDDM, HCV, cirrhosis who presented w/ AMS c/b emesis ( NBNB). In ED head CT w/o acute pathology. He developed coffee ground emesis and GI was consulted. Hgb drop from 8.2> 5.9. PRBC x 4 given. EGD was done showing gastric ulcer visible ulcer requiring clipping. The patient was transferred to ICU intubated and sedated. Overnight he became hypotensive w/ hgb 7.5 and additional PRBC x4, FFP x1 and PLT x1 were given. On exam this AM patient hemodynamically stable off pressers w/ CBC pending. GI aware and bedside. Gastric lavage w/o evidence of BRB. No melena reported by RN. 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 History of Recent Travel: No Home Medications - Allergies Allergies/Adverse Reactions: Allergies Allergy/AdvReac Type Severity Reaction Status Date / Time shellfish derived Allergy Verified 03/10/19 13:00 - Home Medications Home Medications: Ambulatory Orders Donepezil HCl [Aricept] 5 mg PO DAILY 09/13/19 Furosemide [Lasix -] 40 mg PO BID 09/13/19 Insulin (Levemir) [Levemir Vial] 6 unit SQ DAILY 09/13/19 Insulin (Novolog) [Novolog] 2 units SQ AC 09/13/19 Lactulose (Oral Use) [Cephulac -] 20 gm PO QID 09/13/19 Pantoprazole Sodium [Protonix] 40 mg PO DAILY 09/13/19 Salmeterol/Fluticasone [Advair 100Mcg/50Mcg -] 1 puff IH DAILY 09/13/19 Spironolactone 100 mg PO DAILY 09/13/19 Family Medical History Family History: Unable to Obtain (intubated and sedated) Review of Systems Unable to obtain ROS, reason: intubted and sedated Physical Exam Vital Sings: Vital Signs Temperature 97.6 F 09/18/19 07:00 Pulse Rate 73 09/18/19 07:00 Respiratory Rate 17 09/18/19 07:00 Blood Pressure 110/60 09/18/19 07:00 O2 Sat by Pulse Oximetry (%) 100 09/17/19 23:11 Active Medications Sodium Chloride (Normal Saline -) 1,000 mls @ 100 mls/hr IV ASDIR REBEL Last Admin: 09/18/19 06:34 Dose: 100 mls/hr Octreotide Acetate 200 mcg/Octreotide Acetate 1,000 mcg/Dextrose 500 mls @ 20.833 mls/hr IVPB ASDIR REBEL Last Admin: 09/17/19 16:14 Dose: 20.833 mls/hr Sodium Chloride (Normal Saline -) 1,000 mls @ 0 mls/hr IV ASDIR REBEL Last Admin: 09/17/19 14:15 Dose: 1,000 mls/hr Propofol (Diprivan -) 1,000,000 mcg in 100 mls @ 2.198 mls/hr IVPB TITR REBEL; Protocol Last Admin: 09/18/19 03:03 Dose: 10 mcg/kg/min, 4.395 mls/hr Pantoprazole Sodium 80 mg/ (Sodium Chloride) 100 mls @ 10 mls/hr IVPB Q10H REBEL Last Admin: 09/18/19 03:01 Dose: 10 mls/hr Piperacillin Sod/Tazobactam (Sod 3.375 gm/ Dextrose) 50 mls @ 100 mls/hr IVPB Q8H-IV REBEL; Protocol Last Admin: 09/17/19 18:35 Dose: Not Given Midazolam HCl (Midazolam 100mg/100ml-0.9%Nacl) 100 mg in 100 mls @ 1 mls/hr IVPB TITR REBEL; Protocol Last Admin: 09/18/19 04:51 Dose: 7 mg/hr, 7 mls/hr Insulin Aspart (Novolog Vial Sliding Scale -) 1 vial SQ ACHS REBEL; Protocol Last Admin: 09/18/19 06:41 Dose: 4 units Intake & Output 09/15/19 09/16/19 09/17/19 09/18/19 23:59 23:59 23:59 23:59 Intake Total 2075 325 6150 1076 Output Total 300 Balance 5 325 6150 776 Eyes: Yes: PERRL, Sclera Icterus HENT: Yes: Atraumatic Neck: Yes: Supple Cardiovascular: Yes: Regular Rate and Rhythm, S1, S2 Respiratory: Yes: Intubated, Mechanically Ventilated, Rales (in bases) ...Breath Sounds: LLL Rales, RLL Rales Gastrointestinal: Yes: Normal Bowel Sounds, Soft Edema: LLE: 2+, RLE: 2+ Neurological: Yes: Other (RASS -4/5) Labs: CBC, BMP 09/18/19 01:00 09/17/19 20:25 ABG Results ABG pH 7.25 (7.35-7.45) L 09/17/19 20:48 ABG pCO2 at Pt Temp 44.1 mmHg (35-45) 09/17/19 20:48 ABG pO2 at Pt Temp 120 mmHg (80-100) H 09/17/19 20:48 ABG HCO3 18.8 mmol/L (22-27) L 09/17/19 20:48 ABG O2 Sat (Measured) 98.3 % (95-98) H 09/17/19 20:48 ABG O2 Content 10.9 % vol 09/17/19 20:48 ABG Base Excess -7.3 meq/l (-2-2) L 09/17/19 20:48 Imaging - Results Chest X-ray: Report Reviewed (ETT in good position), Image Reviewed Problem List - Problems (1) Respiratory failure Code(s): J96.90 - RESPIRATORY FAILURE, UNSP, UNSP W HYPOXIA OR HYPERCAPNIA (2) Hemorrhagic shock Code(s): R57.8 - OTHER SHOCK (3) GI bleeding Code(s): K92.2 - GASTROINTESTINAL HEMORRHAGE, UNSPECIFIED (4) Cirrhosis Code(s): K74.60 - UNSPECIFIED CIRRHOSIS OF LIVER Qualifiers: (5) Hepatitis C Code(s): B19.20 - UNSPECIFIED VIRAL HEPATITIS C WITHOUT HEPATIC COMA Qualifiers: Assessment/Plan 68 yo man w/ HCV, cirrhosis who presented w/ UGIB s/p EGD w/ gastric ulcer and visible vessel s/p clipping c/b continued hemmorhagic shock requiring a total of 9 PRBC, FFP x4, PLT x2 -GI following, possible repeat EGD -Surgery aware of patient -cont PPI and octreotide drip -Central access given high transfusion demand and IV access -CBC q4-6hrs -trend LFTs -FFP for INR >2.5 -PLT for goal >50 -ceftriaxone for SBP prophylaxis --will consider diagnostic paracentesis if bleeding stops and cont hypotension -NPO w/ NGT to LWS -cont mechanical ventilation for airway protection w/ daily interruption of sedation and SBT once stable -Sedation for RASS -//4, will transition from versed/propofol to propofol and fentanyl -DVT ppx w/ scd Komal SMITHP Pulm/CCM CCT: 40m
[2019-09-18 08:43] LABS: BASO % 0.6 % (0-2.0); EOS % 2.6 % (0-4.5); HEMATOCRIT 25.9 % (35.4-49); HEMOGLOBIN 9.3 GM/dL (11.7-16.9); LYMPH % 9.6 % (8-40); MCH 31.4 pg (25.7-33.7); MCHC 35.8 g/dl (32.0-35.9); MEAN CELL VOLUME 87.8 fl (80-96); MEAN PLT VOLUME 8.9 fl (7.5-11.1); MONO % 5.3 % (3.8-10.2); NEUT % 81.9 % (42.8-82.8); PLATELET COUNT 55 K/MM3 (134-434); RBC 2.95 M/mm3 (4.00-5.60); RDW 15.9 % (11.9-15.9)
[2019-09-18] MEDS: FENTANYL INJECTION 500 MCG in DEXTROSE 5%-WATER - 90 ML IVPB SCH (08:51)
--- NOTE | 2019-09-18 08:51 | PN ---
Progress Note (short form) - Note Progress Note: Events of last afternoon, evening, and night reviewed. Currently BP is 113 systolic. Pt intubated, sedated. Orogastric tube irrigated. Initially obtained clots and coffee grounds material , with further irrigation I was able to obtain mostly clear fluid with small clots. No fresh blood at all. Impression: Bleeding seems to have resolved. To continue octreotide, IV PPI, replenish clotting factors as needed. If rebleeds can consider repeat EGD but for now I think it would not be beneficial.
[2019-09-18 08:56] LABS: INR 1.58 (0.83-1.09); PROTHROMBIN TIME (PATIENT) 18.7 SEC (9.7-13.0)
[2019-09-18 08:59] LABS: ACTIVATED PTT 38.3 SECONDS (25.2-36.5)
[2019-09-18 09:10] LABS: BILIRUBIN,TOTAL 4.2 mg/dL (0.2-1); BLOOD UREA NITROGEN 30.4 mg/dL (7-18); CREATININE 1.4 mg/dL (0.55-1.3); MAGNESIUM 1.6 mg/dL (1.8-2.4); PHOSPHOROUS 2.5 mg/dL (2.5-4.9); POTASSIUM 4.4 mmol/L (3.5-5.1); TOT PROT 4.2 g/dl (6.4-8.2)
[2019-09-18 09:43] LABS: CALCIUM 5.2 mg/dL (8.5-10.1)
[2019-09-18] MEDS ORDERED: CALCIUM GLUCONATE 10% - 1,000 MG/10 ML VIAL IVPB ONE (09:59)
--- NOTE | 2019-09-18 10:33 | CON.CARD ---
Consult Consult Specialty:: cardiology Reason for Consultation:: pre-op clearance (colonoscopy) - History of Present Illness Chief Complaint: Intubated; sedated History of Present Illness: 68 y/o M with hx of IDDM, HCV, cirrhosis, asthma presenting to the ED for altered mental status since last night. at bedside reports he has appeared more lethargic since yesterday evening and had to be woken up to take meds and eat. However he was able to go to sleep without issues. She notes that he had a fall out of bed. This morning, patient did not wake up and is somnolent. He also had emesis and per , reported abd pain. She also states that he has not had a BM in 3 days despite lactulose. On arrival patient was vomiting and required suctioning. states patient had no fever, cough, SOB, chest pain, hematemesis, BPR, dysuria. Of note, patient was admitted to [facility] last week for therapeutic paracentesis PMHx: as noted above ROS: as noted SHx: Denies tobacco use; no alcohol use; but ? cocaine abuse. 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: Yes: Other Cardio/Vascular: Yes: HTN, Hyperlipdemia Pulmonary: Yes: Asthma Gastrointestinal: Yes: GI Bleed Hepatobiliary: Yes: Cirrhosis, Hepatitis C Endocrine: Yes: Diabetes Mellitus (DM II) - Alcohol/Substance Use Hx Alcohol Use: No History of Substance Use: reports: Cocaine (Prior intranasal cocaine abuse) - Smoking History Smoking history: Former smoker Have you smoked in the past 12 months: No Aproximately how many cigarettes per day: 0 - Social History Usual Living Arrangement: With Spouse ADL: Independent 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 History of Recent Travel: No Home Medications - Allergies Allergies/Adverse Reactions: Allergies Allergy/AdvReac Type Severity Reaction Status Date / Time shellfish derived Allergy Verified 03/10/19 13:00 - Home Medications Home Medications: Ambulatory Orders Donepezil HCl [Aricept] 5 mg PO DAILY 09/13/19 Furosemide [Lasix -] 40 mg PO BID 09/13/19 Insulin (Levemir) [Levemir Vial] 6 unit SQ DAILY 09/13/19 Insulin (Novolog) [Novolog] 2 units SQ AC 09/13/19 Lactulose (Oral Use) [Cephulac -] 20 gm PO QID 09/13/19 Pantoprazole Sodium [Protonix] 40 mg PO DAILY 09/13/19 Salmeterol/Fluticasone [Advair 100Mcg/50Mcg -] 1 puff IH DAILY 09/13/19 Spironolactone 100 mg PO DAILY 09/13/19 Family Medical History Family History: Unable to Obtain Review of Systems Unable to obtain ROS, reason: intubated - Risk Factors Known Risk Factors: Yes: Age, Diabetes Mellitus, Gender, Hypercholesterolemia, Hypertension, Physical Inactivity, Other (hx cocaine) Vital Signs: Vital Signs Temperature 97.6 F 09/18/19 07:00 Pulse Rate 71 09/18/19 08:00 Respiratory Rate 14 09/18/19 08:00 Blood Pressure 110/60 09/18/19 07:00 O2 Sat by Pulse Oximetry (%) 100 09/18/19 09:00 Constitutional: Yes: Obese Eyes: Yes: Other HENT: Yes: Other Neck: Yes: Decreased ROM Respiratory: Yes: Diminished, Mechanically Ventilated. No: Rales Gastrointestinal: Yes: Distention Renal/: Yes: Myers Present. No: Anuria Cardiovascular: Yes: Regular Rate and Rhythm JVD: No Carotid Bruit: No Heart Sounds: Yes: S1, Split S2 Murmur: Yes: Systolic Murmur, Grade 1 Musculoskeletal: Yes: Joint Swelling, Muscle Weakness Extremities: Yes: Cool Edema: Yes Edema: LLE: Trace, RLE: Trace Peripheral Pulses WNL: Yes Integumentary: Yes: Venous Stasis Changes Neurological: Yes: Weakness Psychiatric: Yes: Other - Other Data Labs, Other Data: CBC, BMP 09/18/19 07:40 09/18/19 07:40 INR, PTT INR 1.58 (0.83-1.09) H 09/18/19 07:40 Fibrinogen 140.0 mg/dL (238-498) L 09/18/19 07:40 Abnormal Lab Results 09/19/19 09/19/19 09/19/19 06:04 06:20 06:20 RBC 3.21 L Hgb 9.6 L Hct 27.9 L RDW 17.1 H Plt Count 52 L PT with INR 18.00 H INR 1.52 H PTT (Actin FS) 37.2 H Fibrinogen ABG pH 7.32 L ABG pO2 at Pt Temp 74.9 L ABG HCO3 18.0 L ABG O2 Sat (Measured) 94.4 L ABG Base Excess -7.0 L Chloride Carbon Dioxide Anion Gap BUN Creatinine Random Glucose Calcium Magnesium Total Bilirubin Direct Bilirubin AST Total Protein Albumin 09/19/19 09/19/19 09/19/19 06:20 06:20 15:20 RBC 3.62 L Hgb 10.9 L Hct 32.2 L D RDW 18.0 H Plt Count 67 L D PT with INR INR PTT (Actin FS) Fibrinogen 175.0 L ABG pH ABG pO2 at Pt Temp ABG HCO3 ABG O2 Sat (Measured) ABG Base Excess Chloride 115 H Carbon Dioxide 20 L Anion Gap 5 L BUN 45.7 H Creatinine 2.0 H Random Glucose 158 H Calcium 7.2 L Magnesium 1.7 L Total Bilirubin 2.6 H Direct Bilirubin 1.2 H AST 42 H Total Protein 4.8 L Albumin 2.3 L Ejection Fraction %: LVEF > or = 40 % (ECHO 11/2018) Imaging - Results Chest X-ray: Image Reviewed Ultrasound: Report Reviewed EKG: Image Reviewed Problem List - Problems (1) Altered mental status Code(s): R41.82 - ALTERED MENTAL STATUS, UNSPECIFIED Qualifiers: Altered mental status type: unspecified Qualified Code(s): R41.82 - Altered mental status, unspecified (2) Anemia Code(s): D64.9 - ANEMIA, UNSPECIFIED (3) GI bleeding Assessment/Plan: s/p EGD. No further fresh bleed noted on irrigation. On octreotide. Code(s): K92.2 - GASTROINTESTINAL HEMORRHAGE, UNSPECIFIED (4) Hepatic encephalopathy Code(s): K72.90 - HEPATIC FAILURE, UNSPECIFIED WITHOUT COMA (5) Cirrhosis Code(s): K74.60 - UNSPECIFIED CIRRHOSIS OF LIVER Qualifiers: Hepatic cirrhosis type: unspecified hepatic cirrhosis Ascites presence: with ascites Qualified Code(s): K74.60 - Unspecified cirrhosis of liver; R18.8 - Other ascites (6) Hepatitis C Code(s): B19.20 - UNSPECIFIED VIRAL HEPATITIS C WITHOUT HEPATIC COMA Qualifiers: Viral hepatitis chronicity: chronic Hepatic coma status: without hepatic coma Qualified Code(s): B18.2 - Chronic viral hepatitis C (7) Hypertension Code(s): I10 - ESSENTIAL (PRIMARY) HYPERTENSION Qualifiers: Hypertension type: essential hypertension Qualified Code(s): I10 - Essential (primary) hypertension (8) LBBB (left bundle branch block) Assessment/Plan: EKG: NSR; LBBB (no change from June EKG) TNI < 0.02; f/u serially. TSH WNL. ECHO 11/2018: technically limitied study: normal LVEF; mild TR; unable to assess RV. Recommend f/u study. No prior coronary workup noted. Check outpatient records. Code(s): I44.7 - LEFT BUNDLE-BRANCH BLOCK, UNSPECIFIED Assessment/Plan CCU time spent 40 minutes
[2019-09-18] MEDS ORDERED: cefTRIAXone SODIUM 1 GM VIAL ONE (10:58)
[2019-09-18] MEDS: CEFTRIAXONE 1 GM in DEXTROSE 5%-WATER - 50 ML IVPB SCH (11:00)
--- NOTE | 2019-09-18 11:57 | PN ---
Progress Note (short form) - Note Progress Note: Neurology Chief Complaint: Altered Mental Status HPI: 68 y/o M with hx of IDDM, HCV, cirrhosis, asthma presenting to the ED for altered mental status from the night prior to admission. per notes, the reported he has appeared more lethargic since evening prior and had to be woken up out of bed to take meds and eat. However he was able to be put to sleep without issues. She noted that he had a fall out of bed. The morning of admission, the patient didnt wake up and was somnolent. He also had emesis and per , reported abd pain. She also states that he hasnt had a BM in 3days despite lactulose. On arrival patient was vomiting and required suctioning. states patient had no fever, cough, SOB, chest pain, hematemesis, BPR, dysuria. CT head was completed and did not show acute changes. Of note, patient was admitted to [facility] last week for therapeutic paracentesis. Was noted to have sscleral icterus, slight jaundice. Most likely toxic metabolic encephalopathy. On labs, ammonia level normal but hemoglobin and hematocrit reduced and suspicious for anemia. Reviewed notes including from GI recommended Rifaximin aand lactulose, viral hepatitis panels as well as possible endoscopy. Also mention of positive blood cultures and ID consult. Patient with postive occult stool and inquired emergent management overnight. Patient currently in ICU, after rectal bleeding, coffee ground emesis noted, pt went for STAT EGD, received multiple blood transfusions and blood products. Remains intubated and on mechanical ventilation in ICU. Discussed with ICU nurse at bedside, continued monitoring of H/H and bleed (reported with melena in stool this AM). Active Medications Sodium Chloride (Normal Saline -) 1,000 mls @ 100 mls/hr IV ASDIR REBLE Last Admin: 09/18/19 06:34 Dose: 100 mls/hr Octreotide Acetate 200 mcg/Octreotide Acetate 1,000 mcg/Dextrose 500 mls @ 20.833 mls/hr IVPB ASDIR REBEL Last Admin: 09/17/19 16:14 Dose: 20.833 mls/hr Sodium Chloride (Normal Saline -) 1,000 mls @ 0 mls/hr IV ASDIR REBEL Last Admin: 09/17/19 14:15 Dose: 1,000 mls/hr Propofol (Diprivan -) 1,000,000 mcg in 100 mls @ 2.198 mls/hr IVPB TITR REBEL; Protocol Last Admin: 09/18/19 03:03 Dose: 10 mcg/kg/min, 4.395 mls/hr Pantoprazole Sodium 80 mg/ (Sodium Chloride) 100 mls @ 10 mls/hr IVPB Q10H REBEL Last Admin: 09/18/19 03:01 Dose: 10 mls/hr Midazolam HCl (Midazolam 100mg/100ml-0.9%Nacl) 100 mg in 100 mls @ 1 mls/hr IVPB TITR REBEL; Protocol Last Infusion: 09/18/19 09:28 Dose: 0 mg/hr, 0 mls/hr Fentanyl 500 mcg/ Dextrose 100 mls @ 10 mls/hr IVPB TITR REBEL; Protocol Last Admin: 09/18/19 08:51 Dose: 50 mcg/hr, 10 mls/hr Ceftriaxone Sodium 1 gm/ (Dextrose) 50 mls @ 100 mls/hr IVPB DAILY REBEL; Protocol Last Admin: 09/18/19 11:00 Dose: 100 mls/hr Insulin Aspart (Novolog Vial Sliding Scale -) 1 vial SQ ACHS REBEL; Protocol Last Admin: 09/18/19 11:52 Dose: 2 units *Physical Exam Vital Signs Period Temp Pulse Resp BP Sys/Shen Pulse Ox Last 24 Hr 94.9 F-97.9 F 62-108 12-21 83-168/50-82 100-100 GENERAL: sedated and on ventilation HEAD: No signs of trauma, normocephalic, atraumatic EYES: EOMI, scleral icterus, conjunctiva clear ENT: Auricles normal inspection, hearing grossly normal, nares patent, oropharynx clear without exudates. Moist mucosa NECK: Normal ROM, no lymphadenopathy LUNGS: No increased work of breathing, symmetrical chest rise, clear to auscultation bilaterally, no wheezes, crackles or rhonchi HEART: Regular rate and rhythm, normal S1 and S2, no murmurs, peripheral pulses 2+ and equal bilaterally. ABDOMEN: Soft, nondistended, nontender, normoactive bowel sounds. No guarding, no rebound. No masses. No CVAT EXTREMITIES: Normal inspection, Normal range of motion, no edema. No clubbing or cyanosis. NEUROLOGICAL: sedated and on mechanical vent, moves extremities to pain, not following commands, no abnormal movements SKIN: jaundice CBCD WBC 6.0 K/mm3 (4.0-10.0) 09/18/19 07:40 RBC 2.95 M/mm3 (4.00-5.60) L 09/18/19 07:40 Hgb 9.3 GM/dL (11.7-16.9) L 09/18/19 07:40 Hct 25.9 % (35.4-49) L D 09/18/19 07:40 MCV 87.8 fl (80-96) 09/18/19 07:40 MCHC 35.8 g/dl (32.0-35.9) 09/18/19 07:40 RDW 15.9 % (11.9-15.9) D 09/18/19 07:40 Plt Count 55 K/MM3 (134-434) L 09/18/19 07:40 MPV 8.9 fl (7.5-11.1) 09/18/19 07:40 CMP Sodium 141 mmol/L (136-145) 09/18/19 07:40 Potassium 4.4 mmol/L (3.5-5.1) 09/18/19 07:40 Chloride 119 mmol/L (98-107) H 09/18/19 07:40 Carbon Dioxide 17 mmol/L (21-32) L 09/18/19 07:40 Anion Gap 5 MMOL/L (8-16) L 09/18/19 07:40 BUN 30.4 mg/dL (7-18) H 09/18/19 07:40 Creatinine 1.4 mg/dL (0.55-1.3) H 09/18/19 07:40 Random Glucose 175 mg/dL (74-106) H 09/18/19 07:40 Calcium 5.2 mg/dL (8.5-10.1) L* 09/18/19 07:40 Total Bilirubin 4.2 mg/dL (0.2-1) H 09/18/19 07:40 AST 42 U/L (15-37) H 09/18/19 07:40 ALT 34 U/L (13-61) 09/18/19 07:40 Alkaline Phosphatase 91 U/L (45-117) 09/18/19 07:40 Total Protein 4.2 g/dl (6.4-8.2) L 09/18/19 07:40 Albumin 2.0 g/dl (3.4-5.0) L 09/18/19 07:40 CARDIAC ENZYMES Creatine Kinase 268 U/L (26-308) 09/13/19 12:45 Troponin I < 0.02 ng/ml (0.00-0.05) 09/13/19 12:45 Medical Decision Making 68 y/o M with hx of IDDM, HCV, cirrhosis, asthma presenting to the ED for altered mental status from the night prior to admission. per notes, the reported he has appeared more lethargic since evening prior and had to be woken up out of bed to take meds and eat. However he was able to be put to sleep without issues. She noted that he had a fall out of bed. The morning of admission, the patient didnt wake up and was somnolent. He also had emesis and per , reported abd pain. She also states that he hasnt had a BM in 3days despite lactulose. On arrival patient was vomiting and required suctioning. states patient had no fever, cough, SOB, chest pain, hematemesis, BPR, dysuria. CT head was completed and did not show acute changes. Of note, patient was admitted to [facility] last week for therapeutic paracentesis. Was noted to have sscleral icterus, slight jaundice. Most likely toxic metabolic encephalopathy. On labs, ammonia level normal but hemoglobin and hematocrit reduced and suspicious for anemia. Reviewed notes including from GI recommended Rifaximin aand lactulose, viral hepatitis panels as well as possible endoscopy. Also mention of positive blood cultures and ID consult. Patient with postive occult stool and inquired emergent management overnight. Patient currently in ICU, after rectal bleeding, coffee ground emesis noted, pt went for STAT EGD, received multiple blood transfusions and blood products. Remains intubated and on mechanical ventilation in ICU. Discussed with ICU nurse at bedside, continued monitoring of H/H and bleed (reported with melena in stool this AM). Continue GI and hematologic optimization. Monitor H and H, tranfuse as needed. Wean sedation, extubation as able. Continue to monitor mental status. Continue Abx as per primary. Critical care time 40 mins. (
--- NOTE | 2019-09-18 12:13 | PN ---
Progress Note (short form) - Note Progress Note: Anesthesia pot op note, POD@1, s/P EGD with control of gastric bleeding under GA. S/P transfusion as per mass transfusion protocol. Currently intubated, on vent, sedated. Hemodynamically stable. No apparent post anesthesia complications.
[2019-09-18] MEDS ORDERED: PT OWN MED DRAWER 7, Y5N ONE (12:21)
[2019-09-18] MEDS: OCTREOTIDE ACETATE 200 MCG, OCTREOTIDE ACETATE 1,000 MCG in DEXTROSE 5%-WATER - 496 ML IVPB SCH (13:18)
[2019-09-18 13:42] LABS: HEMATOCRIT 25.1 % (35.4-49); HEMOGLOBIN 8.7 GM/dL (11.7-16.9); MCH 30.3 pg (25.7-33.7); MCHC 34.6 g/dl (32.0-35.9); MEAN CELL VOLUME 87.6 fl (80-96); MEAN PLT VOLUME 9.2 fl (7.5-11.1); PLATELET COUNT 54 K/MM3 (134-434); RBC 2.87 M/mm3 (4.00-5.60); RDW 16.6 % (11.9-15.9)
[2019-09-18 13:51] LABS: INR 1.67 (0.83-1.09); PROTHROMBIN TIME (PATIENT) 19.8 SEC (9.7-13.0)
--- NOTE | 2019-09-18 20:29 | CONSULT ---
Consult Consult Specialty:: General Surgery Referred by:: Marc Kat Reason for Consultation:: upper GI bleed - History of Present Illness Chief Complaint: pt cannot offer History of Present Illness: History from chart - pt intubated and sedated, family not at bedside 68 yo M with HTN, HLD, DM, Hep C, cirrhosis, portal HTN, PUD, asthma, admitted through ER with altered mental status and emesis, initially NBNB, then coffee ground, now s/p EGD yesterday with small bleeding antral ulcer identified and clipped/cauterized/injected. He was transferred to ICU and remains intubated and sedated. Has had transfusion of 8 units PRBC, 1 unit FFP, 1 unit platelets by chart report, and is not on pressors. OGT was lavaged by GI today with no evidence of continued bleeding. Surgery was asked to assess. He is seen and examined in ICU bed, intubated and sedated, but lifting head and arms intermittently. Family is not present. Imaging has been consistent with portal hypertension with ascites, splenomegaly, abdominal wall collaterals, recanalized umbilical vein. His platelets are in the 50s, Hb last two are 9.3, 8.7. INR is elevated at 1.5 this am, 1.67 this afternoon. He is on PPI and octreotide per GI. - History Source History Provided By: Medical Record Limitations to Obtaining History: Intubated - Past Medical History Cardio/Vascular: Yes: HTN, Hyperlipdemia Pulmonary: Yes: Asthma Gastrointestinal: Yes: Ascites, GI Bleed, Peptic Ulcer Disease, Other (portal hypertension) Hepatobiliary: Yes: Cirrhosis, Hepatitis C Heme/Onc: Yes: Anemia Endocrine: Yes: Diabetes Mellitus (DM II) - Past Surgical History Past Surgical History: Yes: Upper Endoscopy Additional Surgical History: paracentesis - Alcohol/Substance Use Hx Alcohol Use: No History of Substance Use: reports: Cocaine (Prior intranasal cocaine abuse) - Smoking History Smoking history: Former smoker Have you smoked in the past 12 months: No - Social History Usual Living Arrangement: With Spouse ADL: Independent 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 [employer] History of Recent Travel: No Home Medications - Allergies Allergies/Adverse Reactions: Allergies Allergy/AdvReac Type Severity Reaction Status Date / Time shellfish derived Allergy Verified 03/10/19 13:00 - Home Medications Home Medications: Ambulatory Orders Donepezil HCl [Aricept] 5 mg PO DAILY 09/13/19 Furosemide [Lasix -] 40 mg PO BID 09/13/19 Insulin (Levemir) [Levemir Vial] 6 unit SQ DAILY 09/13/19 Insulin (Novolog) [Novolog] 2 units SQ AC 09/13/19 Lactulose (Oral Use) [Cephulac -] 20 gm PO QID 09/13/19 Pantoprazole Sodium [Protonix] 40 mg PO DAILY 09/13/19 Salmeterol/Fluticasone [Advair 100Mcg/50Mcg -] 1 puff IH DAILY 09/13/19 Spironolactone 100 mg PO DAILY 09/13/19 Family Medical History Family History: Unremarkable (noncontributory) Review of Systems Unable to obtain ROS, reason: intubated/sedated Physical Exam Vital Signs: Vital Signs Temperature 98.1 F 09/18/19 18:00 Pulse Rate 70 09/18/19 18:00 Respiratory Rate 12 09/18/19 16:11 Blood Pressure 105/50 L 09/18/19 18:00 O2 Sat by Pulse Oximetry (%) 100 09/18/19 09:00 Constitutional: Yes: Well Nourished, No Distress, Calm Eyes: Yes: Other (eyes closed) HENT: Yes: Atraumatic, Normocephalic, Other (OGT in place with reddish-brown fluid in tubing (canister recently changed, no new accumulation)) Neck: Yes: Supple, Trachea Midline Cardiovascular: Yes: Regular Rate and Rhythm, Murmur Respiratory: Yes: Regular, CTA Bilaterally, Intubated, Mechanically Ventilated Gastrointestinal: Yes: Soft, Ascites, Distention, Hypoactive Bowel Sounds. No: Tenderness (not apparent) ...Rectal Exam: Yes: Deferred Renal/: Yes: Myers Present. No: Hematuria Musculoskeletal: No: Joint Stiffness, Joint Swelling Extremities: No: Cool, Cyanosis Edema: No Peripheral Pulses WNL: Yes Integumentary: No: Jaundice, Rash Neurological: Yes: Unresponsive, Other (lifts head and moves arms but does not open eyes; sedated on vent). No: Alert Psychiatric: No: Alert, Agitated Labs: CBC, BMP 09/18/19 13:30 Hb from 9.3, relatively stable platelets low but stable 09/18/19 07:40 CMP Sodium 141 mmol/L (136-145) 09/18/19 07:40 Potassium 4.4 mmol/L (3.5-5.1) 09/18/19 07:40 Chloride 119 mmol/L (98-107) H 09/18/19 07:40 Carbon Dioxide 17 mmol/L (21-32) L 09/18/19 07:40 Anion Gap 5 MMOL/L (8-16) L 09/18/19 07:40 BUN 30.4 mg/dL (7-18) H 09/18/19 07:40 Creatinine 1.4 mg/dL (0.55-1.3) H 09/18/19 07:40 Est GFR (CKD-EPI)AfAm 58.58 09/18/19 07:40 Est GFR (CKD-EPI)NonAf 50.54 09/18/19 07:40 POC Glucometer 117 UNITS (80-120) 09/18/19 17:04 Random Glucose 175 mg/dL (74-106) H 09/18/19 07:40 Calcium 5.2 mg/dL (8.5-10.1) L* 09/18/19 07:40 Phosphorus 2.5 mg/dL (2.5-4.9) 09/18/19 07:40 Magnesium 1.6 mg/dL (1.8-2.4) L 09/18/19 07:40 Total Bilirubin 4.2 mg/dL (0.2-1) H 09/18/19 07:40 AST 42 U/L (15-37) H 09/18/19 07:40 ALT 34 U/L (13-61) 09/18/19 07:40 Alkaline Phosphatase 91 U/L (45-117) 09/18/19 07:40 Ammonia < 10.00 umol/L (11-32) L 09/13/19 12:40 Creatine Kinase 268 U/L (26-308) 09/13/19 12:45 Creatine Kinase Index 1.1 % (0.0-5.0) 09/13/19 12:45 CK-MB (CK-2) 3.1 ng/mL (0.5-3.6) 09/13/19 12:45 Troponin I < 0.02 ng/ml (0.00-0.05) 09/13/19 12:45 Total Protein 4.2 g/dl (6.4-8.2) L 09/18/19 07:40 Albumin 2.0 g/dl (3.4-5.0) L 09/18/19 07:40 Tumor Marker AFP 1.0 ng/ml (0.0-8.3) 09/16/19 06:15 TSH 0.88 uIU/ml (0.358-3.74) D 09/13/19 12:45 Ca repleted earlier BUN/Cr elevated INR, PTT INR 1.67 (0.83-1.09) H 09/18/19 13:30 Fibrinogen 140.0 mg/dL (238-498) L 09/18/19 07:40 INR higher than this am, PTT 38 Urine Test Results Urine Color Dk yellow 09/13/19 15:15 Urine Appearance Clear 09/13/19 15:15 Urine pH 5.5 (5.0-8.0) 09/13/19 15:15 Ur Specific [place] 1.018 (1.010-1.035) 09/13/19 15:15 Urine Protein 3+ (NEGATIVE) H 09/13/19 15:15 Urine Glucose (UA) Negative (NEGATIVE) 09/13/19 15:15 Urine Ketones Negative (NEGATIVE) 09/13/19 15:15 Urine Blood 2+ (NEGATIVE) H 09/13/19 15:15 Urine Nitrite Negative (NEGATIVE) 09/13/19 15:15 Urine Bilirubin Negative (NEGATIVE) 09/13/19 15:15 Ur Leukocyte Esterase Negative (NEGATIVE) 09/13/19 15:15 Microbiology 09/13/19 12:45 Blood Culture - Final Blood - Peripheral Venous NO GROWTH AFTER 5 DAYS INCUBATION 09/13/19 12:45 Blood Culture - Final Blood - Peripheral Venous Staphylococcus Epidermidis Imaging - Results Cat Scan: Report Reviewed (no IV contrast - limited; liver cirrhosis/portal htn with recanalized umbilical vein, collaterals anterior abd wall; splenomegaly, sm -mod ascites), Image Reviewed Ultrasound: Report Reviewed (gb not visualized by report, but appears small on prior study - irregular liver contour, hypoechoic lesion in liver, mildly dilated cbd, + ascites, recanalized umbilical vein), Image Reviewed Problem List - Problems (1) Acute gastric ulcer with hemorrhage Assessment/Plan: s/p EGD with clipping, injection and cautery of gastric antral bleeding ulcer intubated and sedated in ICU s/p multiple blood product transfusions with relatively stable H/H low platelets still with some reddish brown output from OGT (was lavaged earlier by GI) dark smear BM per nursing at risk of rebleeding if occurs, would repeat EGD first continue supportive care by ICU and medical teams octreotide and protonix per GI trend labs avoid anticoagulants given known portal hypertension with cirrhosis, ascites, anterior abdominal wall collaterals, if rebleeding occurs and surgery becomes necessary, would consider transfer to tertiary/liver center will follow peripherally and remain available This patient is critically ill. Time spent reviewing chart, examining patient, talking with providers and/or family and documentation is 40 minutes. Code(s): K25.0 - ACUTE GASTRIC ULCER WITH HEMORRHAGE (2) Acute blood loss anemia Code(s): D62 - ACUTE POSTHEMORRHAGIC ANEMIA (3) Cirrhosis Code(s): K74.60 - UNSPECIFIED CIRRHOSIS OF LIVER Qualifiers: Hepatic cirrhosis type: unspecified hepatic cirrhosis Ascites presence: with ascites Qualified Code(s): K74.60 - Unspecified cirrhosis of liver; R18.8 - Other ascites (4) Portal hypertension Code(s): K76.6 - PORTAL HYPERTENSION (5) Hepatitis C Code(s): B19.20 - UNSPECIFIED VIRAL HEPATITIS C WITHOUT HEPATIC COMA Qualifiers: Viral hepatitis chronicity: chronic Hepatic coma status: without hepatic coma Qualified Code(s): B18.2 - Chronic viral hepatitis C (6) Respiratory failure Code(s): J96.90 - RESPIRATORY FAILURE, UNSP, UNSP W HYPOXIA OR HYPERCAPNIA Qualifiers: Chronicity: acute Respiratory failure complication: unspecified whether with hypoxia or hypercapnia Qualified Code(s): J96.00 - Acute respiratory failure, unspecified whether with hypoxia or hypercapnia (7) Hypertension Code(s): I10 - ESSENTIAL (PRIMARY) HYPERTENSION Qualifiers: Hypertension type: essential hypertension Qualified Code(s): I10 - Essential (primary) hypertension
[2019-09-18 21:25] LABS: CHOLESTEROL 80 mg/dL (50-200); HDL CHOLESTEROL 29 mg/dL (40-60); LDL CHOLESTEROL (ONLY SJRH) 44 mg/dL (5-100); TRIGLYCERIDES 73 mg/dL (0-150)
--- NOTE | 2019-09-18 21:53 | PN ---
Progress Note, Physician - Current Medication List Current Medications: Active Medications Octreotide Acetate 200 mcg/Octreotide Acetate 1,000 mcg/Dextrose 500 mls @ 20.833 mls/hr IVPB ASDIR REBEL Last Admin: 09/18/19 13:18 Dose: 20.833 mls/hr Propofol (Diprivan -) 1,000,000 mcg in 100 mls @ 2.198 mls/hr IVPB TITR REBEL; Protocol Last Titration: 09/18/19 17:30 Dose: 6 mcg/kg/min, 2.637 mls/hr Pantoprazole Sodium 80 mg/ (Sodium Chloride) 100 mls @ 10 mls/hr IVPB Q10H REEBL Last Admin: 09/18/19 13:16 Dose: 10 mls/hr Fentanyl 500 mcg/ Dextrose 100 mls @ 10 mls/hr IVPB TITR REBEL; Protocol Last Titration: 09/18/19 16:38 Dose: 25 mcg/hr, 5 mls/hr Ceftriaxone Sodium 1 gm/ (Dextrose) 50 mls @ 100 mls/hr IVPB DAILY REBEL; Protocol Last Admin: 09/18/19 11:00 Dose: 100 mls/hr Insulin Aspart (Novolog Vial Sliding Scale -) 1 vial SQ ACHS REBEL; Protocol Last Admin: 09/18/19 17:07 Dose: Not Given - Objective Vital Signs: Vital Signs Temperature 98.1 F 09/18/19 18:00 Pulse Rate 70 09/18/19 18:00 Respiratory Rate 12 09/18/19 20:39 Blood Pressure 105/50 L 09/18/19 18:00 O2 Sat by Pulse Oximetry (%) 100 09/18/19 09:00 Labs: CBC, BMP 09/18/19 13:30 09/18/19 07:40 INR, PTT INR 1.67 (0.83-1.09) H 09/18/19 13:30 Fibrinogen 140.0 mg/dL (238-498) L 09/18/19 07:40 Problem List - Problems (1) Altered mental status Code(s): R41.82 - ALTERED MENTAL STATUS, UNSPECIFIED Qualifiers: Altered mental status type: unspecified Qualified Code(s): R41.82 - Altered mental status, unspecified (2) Anemia Code(s): D64.9 - ANEMIA, UNSPECIFIED (3) Hepatic encephalopathy Code(s): K72.90 - HEPATIC FAILURE, UNSPECIFIED WITHOUT COMA (4) CAD (coronary artery disease) Code(s): I25.10 - ATHSCL HEART DISEASE OF [place] CORONARY ARTERY W/O ANG PCTRS (5) Cirrhosis Code(s): K74.60 - UNSPECIFIED CIRRHOSIS OF LIVER Qualifiers: Hepatic cirrhosis type: unspecified hepatic cirrhosis Ascites presence: with ascites Qualified Code(s): K74.60 - Unspecified cirrhosis of liver; R18.8 - Other ascites (6) Hypertension Code(s): I10 - ESSENTIAL (PRIMARY) HYPERTENSION Qualifiers: Hypertension type: essential hypertension Qualified Code(s): I10 - Essential (primary) hypertension
[2019-09-18 22:39] LABS: HEMATOCRIT 29.2 % (35.4-49); HEMOGLOBIN 9.9 GM/dL (11.7-16.9); MCH 29.6 pg (25.7-33.7); MCHC 33.8 g/dl (32.0-35.9); MEAN CELL VOLUME 87.4 fl (80-96); MEAN PLT VOLUME 9.1 fl (7.5-11.1); PLATELET COUNT 53 K/MM3 (134-434); RBC 3.35 M/mm3 (4.00-5.60); RDW 16.9 % (11.9-15.9); WHITE BLOOD COUNT 7.7 K/mm3 (4.0-10.0)
[2019-09-19] MEDS: FENTANYL INJECTION 500 MCG in DEXTROSE 5%-WATER - 90 ML IVPB SCH (03:24)
[2019-09-19] MEDS: PROPOFOL 1,000,000 MCG/100 ML VIAL IVPB SCH ×5 (06:08→23:44)
[2019-09-19] MEDS: INSULIN SLIDING SCALE (NOVOLOG) 1 VIAL SQ SCH ×4 (06:19→21:47)
[2019-09-19 06:31] LABS: ARTERIAL BLD GAS O2 SATURATION 94.4 % (95-98); ARTERIAL BLOOD GAS PO2 74.9 mmHg (80-100); ARTERIAL BLOOD GAS pH 7.32 (7.35-7.45)
[2019-09-19 06:41] LABS: HEMATOCRIT 27.9 % (35.4-49); HEMOGLOBIN 9.6 GM/dL (11.7-16.9); MCHC 34.5 g/dl (32.0-35.9); MEAN PLT VOLUME 9.1 fl (7.5-11.1); PLATELET COUNT 52 K/MM3 (134-434); RBC 3.21 M/mm3 (4.00-5.60); RDW 17.1 % (11.9-15.9); WHITE BLOOD COUNT 6.3 K/mm3 (4.0-10.0)
[2019-09-19 07:04] LABS: INR 1.52 (0.83-1.09)
[2019-09-19 07:06] LABS: ACTIVATED PTT 37.2 SECONDS (25.2-36.5)
[2019-09-19 07:08] LABS: ALBUMIN 2.3 g/dl (3.4-5.0); BILIRUBIN,DIRECT 1.2 mg/dL (0.0-0.2); BILIRUBIN,TOTAL 2.6 mg/dL (0.2-1); BLOOD UREA NITROGEN 45.7 mg/dL (7-18); CALCIUM 7.2 mg/dL (8.5-10.1); MAGNESIUM 1.7 mg/dL (1.8-2.4); PHOSPHOROUS 2.6 mg/dL (2.5-4.9); POTASSIUM 4.4 mmol/L (3.5-5.1); TOT PROT 4.8 g/dl (6.4-8.2)
[2019-09-19] MEDS: SODIUM CHLORIDE 1,000 ML IV SCH ×2 (07:12→07:13)
--- NOTE | 2019-09-19 08:58 | PN ---
Progress Note (short form) - Note Progress Note: Pt remains intubated, asleep. Current BP 119/6, P 79. Orogastric tube draining slight dark-tinged material, no clots, no genny blood. Hgb stable, INR stable: CBC WBC 6.3 K/mm3 (4.0-10.0) 09/19/19 06:20 Corrected WBC (auto) Cancelled 09/18/19 00:15 RBC 3.21 M/mm3 (4.00-5.60) L 09/19/19 06:20 Hgb 9.6 GM/dL (11.7-16.9) L 09/19/19 06:20 Hct 27.9 % (35.4-49) L 09/19/19 06:20 MCV 87.0 fl (80-96) 09/19/19 06:20 MCH 30.0 pg (25.7-33.7) 09/19/19 06:20 MCHC 34.5 g/dl (32.0-35.9) 09/19/19 06:20 RDW 17.1 % (11.9-15.9) H 09/19/19 06:20 Plt Count 52 K/MM3 (134-434) L 09/19/19 06:20 MPV 9.1 fl (7.5-11.1) 09/19/19 06:20 Absolute Neuts (auto) 4.9 K/mm3 (1.5-8.0) 09/18/19 07:40 Neutrophils % 81.9 % (42.8-82.8) 09/18/19 07:40 Neutrophils % (Manual) 78.8 % (42.8-82.8) 09/13/19 12:45 Band Neutrophils % 0.0 % 09/13/19 12:45 Lymphocytes % 9.6 % (8-40) D 09/18/19 07:40 Lymphocytes % (Manual) 11.1 % (8-40) 09/13/19 12:45 Monocytes % 5.3 % (3.8-10.2) 09/18/19 07:40 Monocytes % (Manual) 6 % (3.8-10.2) 09/13/19 12:45 Eosinophils % 2.6 % (0-4.5) D 09/18/19 07:40 Eosinophils % (Manual) 3.0 % (0-4.5) 09/13/19 12:45 Basophils % 0.6 % (0-2.0) 09/18/19 07:40 Basophils % (Manual) 1.0 % (0-2.0) 09/13/19 12:45 Myelocytes % (Man) 0 % (0-2) 09/13/19 12:45 Promyelocytes % (Man) 0 % (0-2) 09/13/19 12:45 Blast Cells % (Manual) 0 % (0-0) 09/13/19 12:45 Nucleated RBC % 0 % (0-0) 09/18/19 07:40 Metamyelocytes 0 % (0-2) 09/13/19 12:45 Manual Slide Review Cancelled 09/18/19 00:15 Platelet Estimate Decreased 09/13/19 12:45 Platelet Comment Cancelled 09/18/19 00:15 Poikilocytosis 1+ 09/13/19 12:45 Anisocytosis 1+ 09/13/19 12:45 Microcytosis 1+ 09/13/19 12:45 Schistocytes 1+ 09/13/19 12:45 INR, PTT INR 1.52 (0.83-1.09) H 09/19/19 06:20 Fibrinogen 175.0 mg/dL (238-498) L 09/19/19 06:20 Impression: Precariously stable. Plan is to attept to extubate today. Continue octreotide, PPI. Remove orogastric tube after extubation.
[2019-09-19] MEDS ORDERED: DEXTROSE 5%-WATER - 50 ML IVPB ONE (10:46)
[2019-09-19] MEDS ORDERED: cefTRIAXone SODIUM 1 GM VIAL ONE (10:46)
[2019-09-19] MEDS: PANTOPRAZOLE SODIUM 80 MG in SODIUM CHLORIDE 100 ML IVPB SCH ×3 (10:48→20:20)
[2019-09-19] MEDS: CEFTRIAXONE 1 GM in DEXTROSE 5%-WATER - 50 ML IVPB SCH (10:49)
--- NOTE | 2019-09-19 12:04 | PN ---
Progress Note (short form) - Note Progress Note: Neurology Chief Complaint: Altered Mental Status HPI: 68 y/o M with hx of IDDM, HCV, cirrhosis, asthma presenting to the ED for altered mental status from the night prior to admission. per notes, the reported he has appeared more lethargic since evening prior and had to be woken up out of bed to take meds and eat. However he was able to be put to sleep without issues. She noted that he had a fall out of bed. The morning of admission, the patient didnt wake up and was somnolent. He also had emesis and per , reported abd pain. She also states that he hasnt had a BM in 3days despite lactulose. On arrival patient was vomiting and required suctioning. states patient had no fever, cough, SOB, chest pain, hematemesis, BPR, dysuria. CT head was completed and did not show acute changes. Of note, patient was admitted to [facility] last week for therapeutic paracentesis. Was noted to have sscleral icterus, slight jaundice. Most likely toxic metabolic encephalopathy. On labs, ammonia level normal but hemoglobin and hematocrit reduced and suspicious for anemia.GI recommended Rifaximin aand lactulose, viral hepatitis panels as well as possible endoscopy. Also mention of positive blood cultures and ID consult. Patient with postive occult stool and inquired emergent management overnight. Patient currently in ICU, after rectal bleeding, coffee ground emesis noted, pt went for STAT EGD, received multiple blood transfusions and blood products. Remains intubated and on mechanical ventilation in ICU. Discussed with ICU nurse at bedside, continued monitoring of H/H which has stabilized, GI note reviewed and mentioned continued octeotride. Possible extubation if stable. More awake, not on sedation this AM, climbing out of bed, seen with ICU nurse, follows some commands like opening eyes but was somnolent still. Surgery note reviewed and mentioned EGD may be considered for rebleed but if surgery needed may require tertiary care facility. Active Medications Octreotide Acetate 200 mcg/Octreotide Acetate 1,000 mcg/Dextrose 500 mls @ 20.833 mls/hr IVPB ASDIR REBEL Last Admin: 09/18/19 13:18 Dose: 20.833 mls/hr Propofol (Diprivan -) 1,000,000 mcg in 100 mls @ 2.198 mls/hr IVPB TITR REBEL; Protocol Last Titration: 09/19/19 07:10 Dose: 0 mcg/kg/min, 0 mls/hr Pantoprazole Sodium 80 mg/ (Sodium Chloride) 100 mls @ 10 mls/hr IVPB Q10H REBEL Last Admin: 09/19/19 10:48 Dose: 10 mls/hr Fentanyl 500 mcg/ Dextrose 100 mls @ 10 mls/hr IVPB TITR REBEL; Protocol Last Titration: 09/19/19 07:10 Dose: 0 mcg/hr, 0 mls/hr Ceftriaxone Sodium 1 gm/ (Dextrose) 50 mls @ 100 mls/hr IVPB DAILY REBEL; Protocol Last Admin: 09/19/19 10:49 Dose: 100 mls/hr Insulin Aspart (Novolog Vial Sliding Scale -) 1 vial SQ ACHS REBEL; Protocol Last Admin: 09/19/19 11:06 Dose: 2 units *Physical Exam Vital Signs Period Temp Pulse Resp BP Sys/Shen Pulse Ox Last 24 Hr 96.8 F-98.1 F 54-78 11-63 91-139/48-61 100-100 GENERAL: sedated and on ventilation HEAD: No signs of trauma, normocephalic, atraumatic EYES: EOMI, scleral icterus, conjunctiva clear ENT: Auricles normal inspection, hearing grossly normal, nares patent, oropharynx clear without exudates. Moist mucosa NECK: Normal ROM, no lymphadenopathy LUNGS: No increased work of breathing, symmetrical chest rise, clear to auscultation bilaterally, no wheezes, crackles or rhonchi HEART: Regular rate and rhythm, normal S1 and S2, no murmurs, peripheral pulses 2+ and equal bilaterally. ABDOMEN: Soft, nondistended, nontender, normoactive bowel sounds. No guarding, no rebound. No masses. No CVAT EXTREMITIES: Normal inspection, Normal range of motion, no edema. No clubbing or cyanosis. NEUROLOGICAL: sedated and on mechanical vent, moves extremities to pain, not following commands, no abnormal movements SKIN: jaundice CBCD WBC 6.3 K/mm3 (4.0-10.0) 09/19/19 06:20 RBC 3.21 M/mm3 (4.00-5.60) L 09/19/19 06:20 Hgb 9.6 GM/dL (11.7-16.9) L 09/19/19 06:20 Hct 27.9 % (35.4-49) L 09/19/19 06:20 MCV 87.0 fl (80-96) 09/19/19 06:20 MCHC 34.5 g/dl (32.0-35.9) 09/19/19 06:20 RDW 17.1 % (11.9-15.9) H 09/19/19 06:20 Plt Count 52 K/MM3 (134-434) L 09/19/19 06:20 MPV 9.1 fl (7.5-11.1) 09/19/19 06:20 CMP Sodium 140 mmol/L (136-145) 09/19/19 06:20 Potassium 4.4 mmol/L (3.5-5.1) 09/19/19 06:20 Chloride 115 mmol/L (98-107) H 09/19/19 06:20 Carbon Dioxide 20 mmol/L (21-32) L 09/19/19 06:20 Anion Gap 5 MMOL/L (8-16) L 09/19/19 06:20 BUN 45.7 mg/dL (7-18) H 09/19/19 06:20 Creatinine 2.0 mg/dL (0.55-1.3) H 09/19/19 06:20 Random Glucose 158 mg/dL (74-106) H 09/19/19 06:20 Calcium 7.2 mg/dL (8.5-10.1) L 09/19/19 06:20 Total Bilirubin 2.6 mg/dL (0.2-1) H 09/19/19 06:20 AST 42 U/L (15-37) H 09/19/19 06:20 ALT 32 U/L (13-61) 09/19/19 06:20 Alkaline Phosphatase 101 U/L (45-117) 09/19/19 06:20 Total Protein 4.8 g/dl (6.4-8.2) L 09/19/19 06:20 Albumin 2.3 g/dl (3.4-5.0) L 09/19/19 06:20 CARDIAC ENZYMES Creatine Kinase 268 U/L (26-308) 09/13/19 12:45 Troponin I < 0.02 ng/ml (0.00-0.05) 09/13/19 12:45 Medical Decision Making 68 y/o M with hx of IDDM, HCV, cirrhosis, asthma presenting to the ED for altered mental status from the night prior to admission. per notes, the reported he has appeared more lethargic since evening prior and had to be woken up out of bed to take meds and eat. However he was able to be put to sleep without issues. She noted that he had a fall out of bed. The morning of admission, the patient didnt wake up and was somnolent. He also had emesis and per , reported abd pain. She also states that he hasnt had a BM in 3days despite lactulose. On arrival patient was vomiting and required suctioning. states patient had no fever, cough, SOB, chest pain, hematemesis, BPR, dysuria. CT head was completed and did not show acute changes. Of note, patient was admitted to [facility] last week for therapeutic paracentesis. Was noted to have sscleral icterus, slight jaundice. Most likely toxic metabolic encephalopathy. On labs, ammonia level normal but hemoglobin and hematocrit reduced and suspicious for anemia. Reviewed notes including from GI recommended Rifaximin aand lactulose, viral hepatitis panels as well as possible endoscopy. Also mention of positive blood cultures and ID consult. Patient with postive occult stool and inquired emergent management overnight. Patient currently in ICU, after rectal bleeding, coffee ground emesis noted, pt went for STAT EGD, received multiple blood transfusions and blood products. Remains intubated and on mechanical ventilation in ICU. Discussed with ICU nurse at bedside, continued monitoring of H/H which has stabilized, GI note reviewed and mentioned continued octeotride. Possible extubation if stable. More awake, not on sedation this AM, climbing out of bed, seen with ICU nurse, follows some commands like opening eyes but was somnolent still. Surgery note reviewed and mentioned EGD may be considered for rebleed but if surgery needed may require tertiary care facility. Continue GI and hematologic optimization. Monitor H and H, tranfuse as needed. Wean sedation, extubation as able. Continue to monitor mental status. Continue Abx as per primary. Critical care time 35 mins. (
--- NOTE | 2019-09-19 12:34 | PN ---
Progress Note (short form) - Note Progress Note: Progress Note Pulm/CCM I have seen and examined the patient in the ICU. Remains off pressors. Small amt melena overnight. Still with coffee ground from NGT. Failed SBT in the am d/ t hypoventilation/sedation. Sedation held. Hgb and HD stable. Current Medications Octreotide Acetate 200 mcg/Octreotide Acetate 1,000 mcg/Dextrose 500 mls @ 20.833 mls/hr IVPB ASDIR REBEL Last Admin: 09/18/19 13:18 Dose: 20.833 mls/hr Propofol (Diprivan -) 1,000,000 mcg in 100 mls @ 2.198 mls/hr IVPB TITR REBEL; Protocol Last Titration: 09/19/19 07:10 Dose: 0 mcg/kg/min, 0 mls/hr Pantoprazole Sodium 80 mg/ (Sodium Chloride) 100 mls @ 10 mls/hr IVPB Q10H REBEL Last Admin: 09/19/19 10:48 Dose: 10 mls/hr Fentanyl 500 mcg/ Dextrose 100 mls @ 10 mls/hr IVPB TITR REBEL; Protocol Last Titration: 09/19/19 07:10 Dose: 0 mcg/hr, 0 mls/hr Ceftriaxone Sodium 1 gm/ (Dextrose) 50 mls @ 100 mls/hr IVPB DAILY REBEL; Protocol Last Admin: 09/19/19 10:49 Dose: 100 mls/hr Insulin Aspart (Novolog Vial Sliding Scale -) 1 vial SQ ACHS REBEL; Protocol Last Admin: 09/19/19 11:06 Dose: 2 units Vital Signs Period Temp Pulse Resp BP Sys/Shen Pulse Ox Last 24 Hr 96.8 F-98.1 F 54-78 11-63 91-139/48-61 100-100 Intake & Output 09/16/19 09/17/19 09/18/19 09/19/19 23:59 23:59 23:59 23:59 Intake Total 325 6150 2242 359 Output Total 600 300 Balance 325 6150 1642 59 Weight 93.939 kg Gen: intubated, in NAD HEENT-PERRL, Sclera Icterus, orally intubated Resp: Mild rales, no wheeze CV: Regular Rate and Rhythm, S1, S2 Abd: Soft, NT; hypoactive BS Ext: trace ble edema; + pulses Neuro: RASS -1-2, restless at times ABG Results ABG pH 7.32 (7.35-7.45) L 09/19/19 06:04 ABG pCO2 at Pt Temp 36.0 mmHg (35-45) 09/19/19 06:04 ABG pO2 at Pt Temp 74.9 mmHg (80-100) L 09/19/19 06:04 ABG HCO3 18.0 mmol/L (22-27) L 09/19/19 06:04 ABG O2 Sat (Measured) 94.4 % (95-98) L 09/19/19 06:04 ABG O2 Content 13.1 % vol 09/19/19 06:04 ABG Base Excess -7.0 meq/l (-2-2) L 09/19/19 06:04 CBC, BMP 09/19/19 06:20 09/19/19 06:20 Chest X-ray: Report Reviewed (ETT in good position), Image Reviewed Problem List - Problems (1) Respiratory failure Code(s): J96.90 - RESPIRATORY FAILURE, UNSP, UNSP W HYPOXIA OR HYPERCAPNIA (2) Hemorrhagic shock Code(s): R57.8 - OTHER SHOCK (3) GI bleeding Code(s): K92.2 - GASTROINTESTINAL HEMORRHAGE, UNSPECIFIED (4) Cirrhosis Code(s): K74.60 - UNSPECIFIED CIRRHOSIS OF LIVER Qualifiers: (5) Hepatitis C Code(s): B19.20 - UNSPECIFIED VIRAL HEPATITIS C WITHOUT HEPATIC COMA Qualifiers: Assessment/Plan 68 yo man w/ HCV, cirrhosis who presented w/ [facility] s/p EGD w/ gastric ulcer and visible vessel s/p clipping c/b continued hemmorhagic shock requiring a total of 9 PRBC, FFP x4, PLT x2 -GI following, possible repeat EGD -Surgery aware of patient -cont PPI and octreotide drip -Central access given high transfusion demand and IV access -CBC q4-6hrs -trend LFTs -FFP for INR >2.5 -PLT for goal >50 -ceftriaxone for SBP prophylaxis --will consider diagnostic paracentesis if bleeding stops and cont hypotension -NPO w/ NGT to LWS -cont mechanical ventilation for airway protection w/ daily interruption of sedation and SBT once stable -Sedation for RASS -1 to 0; hold propofol and fentanyl for now -DVT ppx w/ scd Alona Izquierdo, ACNP Pulm/CCM CCT: 40m
[2019-09-19] MEDS ORDERED: PT OWN MED DRAWER 7, Y5N ONE ×2 (13:18→14:44)
[2019-09-19] MEDS: OCTREOTIDE ACETATE 200 MCG, OCTREOTIDE ACETATE 1,000 MCG in DEXTROSE 5%-WATER - 496 ML IVPB SCH (15:23)
[2019-09-19 16:00] LABS: HEMATOCRIT 32.2 % (35.4-49); HEMOGLOBIN 10.9 GM/dL (11.7-16.9); MCH 30.1 pg (25.7-33.7); MCHC 33.9 g/dl (32.0-35.9); MEAN CELL VOLUME 88.8 fl (80-96); MEAN PLT VOLUME 9.5 fl (7.5-11.1); PLATELET COUNT 67 K/MM3 (134-434); RBC 3.62 M/mm3 (4.00-5.60); WHITE BLOOD COUNT 9.2 K/mm3 (4.0-10.0)
--- NOTE | 2019-09-19 17:06 | EKG ---
Test Reason : Blood Pressure : / mmHG Vent. Rate : 063 BPM Atrial Rate : 063 BPM P-R Int : 140 ms QRS Dur : 148 ms QT Int : 512 ms P-R-T Axes : 026 -02 140 degrees QTc Int : 523 ms NORMAL SINUS RHYTHM LEFT BUNDLE BRANCH BLOCK ABNORMAL ECG WHEN COMPARED WITH ECG OF 13-SEP-2019 12:52, T WAVE INVERSION NO LONGER EVIDENT IN LATERAL LEADS Confirmed by DANAE BARAJAS, MARSHALL ([id number]) on 09/19/2019 5:06:19 PM Referred By: Miladys MARTIN Confirmed By:MARSHALL FINK MD
--- NOTE | 2019-09-19 20:16 | PN ---
Progress Note, Physician - Current Medication List Current Medications: Active Medications Fentanyl (Sublimaze Injection -) 12.5 mcg IVPUSH Q1H PRN PRN Reason: AGITATION Stop: 09/20/19 16:29 Last Admin: 09/19/19 16:36 Dose: 12.5 mcg Octreotide Acetate 200 mcg/Octreotide Acetate 1,000 mcg/Dextrose 500 mls @ 20.833 mls/hr IVPB ASDIR REBEL Last Admin: 09/19/19 15:23 Dose: 20.833 mls/hr Propofol (Diprivan -) 1,000,000 mcg in 100 mls @ 2.198 mls/hr IVPB TITR REBEL; Protocol Last Admin: 09/19/19 19:05 Dose: Not Given Pantoprazole Sodium 80 mg/ (Sodium Chloride) 100 mls @ 10 mls/hr IVPB Q10H REBEL Last Admin: 09/19/19 16:27 Dose: Not Given Ceftriaxone Sodium 1 gm/ (Dextrose) 50 mls @ 100 mls/hr IVPB DAILY REBEL; Protocol Last Admin: 09/19/19 10:49 Dose: 100 mls/hr Insulin Aspart (Novolog Vial Sliding Scale -) 1 vial SQ ACHS REBLE; Protocol Last Admin: 09/19/19 17:43 Dose: Not Given - Objective Vital Signs: Vital Signs Temperature 98.4 F 09/19/19 18:00 Pulse Rate 66 09/19/19 18:00 Respiratory Rate 12 09/19/19 18:00 Blood Pressure 108/52 L 09/19/19 18:00 O2 Sat by Pulse Oximetry (%) 100 09/19/19 09:00 Labs: CBC, BMP 09/19/19 15:20 09/19/19 06:20 INR, PTT INR 1.52 (0.83-1.09) H 09/19/19 06:20 Fibrinogen 175.0 mg/dL (238-498) L 09/19/19 06:20
[2019-09-20] MEDS: PROPOFOL 1,000,000 MCG/100 ML VIAL IVPB SCH ×5 (03:11→21:54)
[2019-09-20] MEDS: PANTOPRAZOLE SODIUM 80 MG in SODIUM CHLORIDE 100 ML IVPB SCH ×3 (05:11→16:31)
--- NOTE | 2019-09-20 05:23 | PN ---
Progress Note, Physician - Current Medication List Current Medications: Active Medications Fentanyl (Sublimaze Injection -) 12.5 mcg IVPUSH Q1H PRN PRN Reason: AGITATION Stop: 09/20/19 16:29 Last Admin: 09/19/19 16:36 Dose: 12.5 mcg Octreotide Acetate 200 mcg/Octreotide Acetate 1,000 mcg/Dextrose 500 mls @ 20.833 mls/hr IVPB ASDIR REBEL Last Admin: 09/19/19 15:23 Dose: 20.833 mls/hr Propofol (Diprivan -) 1,000,000 mcg in 100 mls @ 2.198 mls/hr IVPB TITR REBEL; Protocol Last Admin: 09/20/19 03:11 Dose: 50 mcg/kg/min, 21.977 mls/hr Pantoprazole Sodium 80 mg/ (Sodium Chloride) 100 mls @ 10 mls/hr IVPB Q10H REBEL Last Admin: 09/20/19 05:11 Dose: 10 mls/hr Ceftriaxone Sodium 1 gm/ (Dextrose) 50 mls @ 100 mls/hr IVPB DAILY REBEL; Protocol Last Admin: 09/19/19 10:49 Dose: 100 mls/hr Insulin Aspart (Novolog Vial Sliding Scale -) 1 vial SQ ACHS REBEL; Protocol Last Admin: 09/19/19 21:47 Dose: 2 units - Objective Vital Signs: Vital Signs Temperature 98.0 F 09/19/19 22:00 Pulse Rate 75 09/20/19 01:00 Respiratory Rate 12 09/20/19 01:00 Blood Pressure 121/65 09/20/19 01:00 O2 Sat by Pulse Oximetry (%) 100 09/19/19 21:27 Labs: CBC, BMP 09/19/19 15:20 09/19/19 06:20 INR, PTT INR 1.52 (0.83-1.09) H 09/19/19 06:20 Fibrinogen 175.0 mg/dL (238-498) L 09/19/19 06:20 Problem List - Problems (1) Altered mental status Code(s): R41.82 - ALTERED MENTAL STATUS, UNSPECIFIED Qualifiers: Altered mental status type: unspecified Qualified Code(s): R41.82 - Altered mental status, unspecified (2) Anemia Code(s): D64.9 - ANEMIA, UNSPECIFIED (3) GI bleeding Code(s): K92.2 - GASTROINTESTINAL HEMORRHAGE, UNSPECIFIED (4) Hepatic encephalopathy Code(s): K72.90 - HEPATIC FAILURE, UNSPECIFIED WITHOUT COMA (5) Cirrhosis Code(s): K74.60 - UNSPECIFIED CIRRHOSIS OF LIVER Qualifiers: Hepatic cirrhosis type: unspecified hepatic cirrhosis Ascites presence: with ascites Qualified Code(s): K74.60 - Unspecified cirrhosis of liver; R18.8 - Other ascites (6) Hepatitis C Code(s): B19.20 - UNSPECIFIED VIRAL HEPATITIS C WITHOUT HEPATIC COMA Qualifiers: Viral hepatitis chronicity: chronic Hepatic coma status: without hepatic coma Qualified Code(s): B18.2 - Chronic viral hepatitis C (7) Hypertension Code(s): I10 - ESSENTIAL (PRIMARY) HYPERTENSION Qualifiers: Hypertension type: essential hypertension Qualified Code(s): I10 - Essential (primary) hypertension (8) LBBB (left bundle branch block) Code(s): I44.7 - LEFT BUNDLE-BRANCH BLOCK, UNSPECIFIED
[2019-09-20] MEDS: INSULIN SLIDING SCALE (NOVOLOG) 1 VIAL SQ SCH ×4 (06:02→22:55)
--- NOTE | 2019-09-20 08:10 | PN ---
Physical Exam: SUBJECTIVE: Patient seen and examined by the bedside, sedated and intubated, unresponsive. OBJECTIVE: Vital Signs Period Temp Pulse Resp BP Sys/Shen Pulse Ox Last 24 Hr 97.9 F-98.4 F 60-77 11-18 101-144/50-66 100-100 GENERAL: Intubated and sedated, unresponsive LUNGS: Transmitted breath sounds B/L, no wheezes or crackles HEART: RRR, no murmurs ABDOMEN: Soft, distended, no tenderness LOWER EXTREMITIES: 2+ pitting edema NEUROLOGICAL: AOx3. Normal speech. No asterixis Laboratory Results - last 24 hr 09/19/19 09/19/19 09/19/19 06:20 11:02 15:20 WBC 9.2 RBC 3.62 L Hgb 10.9 L Hct 32.2 L D MCV 88.8 MCH 30.1 MCHC 33.9 RDW 18.0 H Plt Count 67 L D MPV 9.5 Fibrinogen 175.0 L POC Glucometer 157 09/19/19 09/19/19 09/20/19 17:37 21:43 05:24 WBC RBC Hgb Hct MCV MCH MCHC RDW Plt Count MPV Fibrinogen POC Glucometer 139 151 144 Active Medications Generic Name Dose Route Start Last Admin Trade Name Freq PRN Reason Stop Dose Admin Fentanyl 12.5 mcg 09/19/19 16:30 09/19/19 16:36 Sublimaze Injection - IVPUSH 09/20/19 16:29 12.5 mcg Q1H PRN Administration AGITATION Octreotide Acetate 200 mcg/ 500 mls @ 20.833 mls/hr 09/17/19 12:00 09/19/19 15:23 Octreotide Acetate 1,000 mcg/ IVPB 20.833 mls/hr Dextrose ASDIR REBEL Administration Propofol 1,000,000 mcg in 100 mls @ 2.198 mls/hr 09/17/19 18:15 09/20/19 03: 11 Diprivan - IVPB 50 mcg/kg/min TITR REBEL 21.977 mls/hr Administration Protocol 5 MCG/KG/MIN Pantoprazole Sodium 80 mg/ 100 mls @ 10 mls/hr 09/17/19 18:15 09/20/19 05:11 Sodium Chloride IVPB 10 mls/hr Q10H REBEL Administration 8 MG/HR Ceftriaxone Sodium 1 gm/ 50 mls @ 100 mls/hr 09/18/19 10:00 09/19/19 10:49 Dextrose IVPB 100 mls/hr DAILY REBEL Administration Protocol Insulin Aspart 1 vial 09/17/19 16:30 09/20/19 06:02 Novolog Vial Sliding Scale - SQ Not Given ACHS REBEL Protocol ASSESSMENT/PLAN: 68 year old male with PMH of IDDM1, HCV, cirrhosis, asthma originally presented 09/13 for altered mental status and jaundice 2/2 toxic metabolic encephalopathy. On 09/17, pt had one bloody bowel movement #Neuro - Propofol, intubated and sedated - Failed SBT yesterday #GI - EGD planned for today - s/p EGD 09/17 with clipping, injection and cautery of gastric antral bleeding ulcer, intubated and sedated in ICU - Octreotide and Protonix drip - EGD 11/30/18: No varices, stomach with moderate portal hypertensive gastropathy w/o varices, one small non-bleeding duodenal ulcer - Holding lactulose, rifaximin due to gastric bleeding #Heme - anemia, thrombocytopenia - H&H 9.7/28.8 - Plt 48 #Cardio - hemodynamically stable - holding heparin d/t bleeding - QTc 506m, avoid QT prolonging medication #Pulm - Intubated, sedated #Endo - hx IDDM, on Novolog SS #Renal - [facility] - Cr 1.6 -> 1.7, likely hypovolemia - Renal US ordered - Myers, monitor I/O #ID - Afebrile, WBC 5.1 - Started Ceftriaxone day 3 for variceal ppx #FEN - NPO #PPX - SCDs #Dispo - Continue to monitor in ICU ATTENDING PHYSICIAN STATEMENT I saw and evaluated the patient. I reviewed the resident's note and discussed the case with the resident. I agree with the resident's findings and plan as documented. SUBJECTIVE: OBJECTIVE: ASSESSMENT AND PLAN:
--- NOTE | 2019-09-20 09:05 | PN ---
Progress Note (short form) - Note Progress Note: Neurology Chief Complaint: Altered Mental Status HPI: 68 y/o M with hx of IDDM, HCV, cirrhosis, asthma presenting to the ED for altered mental status from the night prior to admission. per notes, the reported he has appeared more lethargic since evening prior and had to be woken up out of bed to take meds and eat. However he was able to be put to sleep without issues. She noted that he had a fall out of bed. The morning of admission, the patient didnt wake up and was somnolent. He also had emesis and per , reported abd pain. She also states that he hasnt had a BM in 3days despite lactulose. On arrival patient was vomiting and required suctioning. states patient had no fever, cough, SOB, chest pain, hematemesis, BPR, dysuria. CT head was completed and did not show acute changes. Of note, patient was admitted to [facility] last week for therapeutic paracentesis. Was noted to have sscleral icterus, slight jaundice. Most likely toxic metabolic encephalopathy. On labs, ammonia level normal but hemoglobin and hematocrit reduced and suspicious for anemia.GI recommended Rifaximin aand lactulose, viral hepatitis panels as well as possible endoscopy. Also mention of positive blood cultures and ID consult. Patient with postive occult stool and inquired emergent management overnight. Patient currently in ICU, after rectal bleeding, coffee ground emesis noted, pt went for STAT EGD, received multiple blood transfusions and blood products. Remains intubated and on mechanical ventilation in ICU. Continued monitoring of H/H which has stabilized, GI note reviewed and mentioned continued octeotride. Possible extubation if stable. More awake, not climbing out of bed but, somnolent still. Surgery note reviewed and mentioned EGD may be considered for rebleed but if surgery needed may require tertiary care facility. ID note reviewed, no need to treat with Abx. Active Medications Fentanyl (Sublimaze Injection -) 12.5 mcg IVPUSH Q1H PRN PRN Reason: AGITATION Stop: 09/20/19 16:29 Last Admin: 09/19/19 16:36 Dose: 12.5 mcg Octreotide Acetate 200 mcg/Octreotide Acetate 1,000 mcg/Dextrose 500 mls @ 20.833 mls/hr IVPB ASDIR REBEL Last Admin: 09/19/19 15:23 Dose: 20.833 mls/hr Propofol (Diprivan -) 1,000,000 mcg in 100 mls @ 2.198 mls/hr IVPB TITR REBEL; Protocol Last Admin: 09/20/19 03:11 Dose: 50 mcg/kg/min, 21.977 mls/hr Pantoprazole Sodium 80 mg/ (Sodium Chloride) 100 mls @ 10 mls/hr IVPB Q10H REBEL Last Admin: 09/20/19 05:11 Dose: 10 mls/hr Ceftriaxone Sodium 1 gm/ (Dextrose) 50 mls @ 100 mls/hr IVPB DAILY REBEL; Protocol Last Admin: 09/19/19 10:49 Dose: 100 mls/hr Insulin Aspart (Novolog Vial Sliding Scale -) 1 vial SQ ACHS REBEL; Protocol Last Admin: 09/20/19 06:02 Dose: Not Given *Physical Exam Vital Signs Period Temp Pulse Resp BP Sys/Shen Pulse Ox Last 24 Hr 97.9 F-98.4 F 57-77 09-20 101-144/50-66 100 GENERAL: sedated and on ventilation HEAD: No signs of trauma, normocephalic, atraumatic EYES: EOMI, scleral icterus, conjunctiva clear ENT: Auricles normal inspection, hearing grossly normal, nares patent, oropharynx clear without exudates. Moist mucosa NECK: Normal ROM, no lymphadenopathy LUNGS: No increased work of breathing, symmetrical chest rise, clear to auscultation bilaterally, no wheezes, crackles or rhonchi HEART: Regular rate and rhythm, normal S1 and S2, no murmurs, peripheral pulses 2+ and equal bilaterally. ABDOMEN: Soft, nondistended, nontender, normoactive bowel sounds. No guarding, no rebound. No masses. No CVAT EXTREMITIES: Normal inspection, Normal range of motion, no edema. No clubbing or cyanosis. NEUROLOGICAL: sedated and on mechanical vent, moves extremities to pain, not following commands, no abnormal movements SKIN: jaundice CBCD WBC 9.2 K/mm3 (4.0-10.0) 09/19/19 15:20 RBC 3.62 M/mm3 (4.00-5.60) L 09/19/19 15:20 Hgb 10.9 GM/dL (11.7-16.9) L 09/19/19 15:20 Hct 32.2 % (35.4-49) L D 09/19/19 15:20 MCV 88.8 fl (80-96) 09/19/19 15:20 MCHC 33.9 g/dl (32.0-35.9) 09/19/19 15:20 RDW 18.0 % (11.9-15.9) H 09/19/19 15:20 Plt Count 67 K/MM3 (134-434) L D 09/19/19 15:20 MPV 9.5 fl (7.5-11.1) 09/19/19 15:20 CMP Sodium 140 mmol/L (136-145) 09/19/19 06:20 Potassium 4.4 mmol/L (3.5-5.1) 09/19/19 06:20 Chloride 115 mmol/L (98-107) H 09/19/19 06:20 Carbon Dioxide 20 mmol/L (21-32) L 09/19/19 06:20 Anion Gap 5 MMOL/L (8-16) L 09/19/19 06:20 BUN 45.7 mg/dL (7-18) H 09/19/19 06:20 Creatinine 2.0 mg/dL (0.55-1.3) H 09/19/19 06:20 Random Glucose 158 mg/dL (74-106) H 09/19/19 06:20 Calcium 7.2 mg/dL (8.5-10.1) L 09/19/19 06:20 Total Bilirubin 2.6 mg/dL (0.2-1) H 09/19/19 06:20 AST 42 U/L (15-37) H 09/19/19 06:20 ALT 32 U/L (13-61) 09/19/19 06:20 Alkaline Phosphatase 101 U/L (45-117) 09/19/19 06:20 Total Protein 4.8 g/dl (6.4-8.2) L 09/19/19 06:20 Albumin 2.3 g/dl (3.4-5.0) L 09/19/19 06:20 CARDIAC ENZYMES Creatine Kinase 268 U/L (26-308) 09/13/19 12:45 Troponin I < 0.02 ng/ml (0.00-0.05) 09/13/19 12:45 Medical Decision Making 68 y/o M with hx of IDDM, HCV, cirrhosis, asthma presenting to the ED for altered mental status from the night prior to admission. per notes, the reported he has appeared more lethargic since evening prior and had to be woken up out of bed to take meds and eat. However he was able to be put to sleep without issues. She noted that he had a fall out of bed. The morning of admission, the patient didnt wake up and was somnolent. He also had emesis and per , reported abd pain. She also states that he hasnt had a BM in 3days despite lactulose. On arrival patient was vomiting and required suctioning. states patient had no fever, cough, SOB, chest pain, hematemesis, BPR, dysuria. CT head was completed and did not show acute changes. Of note, patient was admitted to [facility] last week for therapeutic paracentesis. Was noted to have sscleral icterus, slight jaundice. Most likely toxic metabolic encephalopathy. On labs, ammonia level normal but hemoglobin and hematocrit reduced and suspicious for anemia. Reviewed notes including from GI recommended Rifaximin aand lactulose, viral hepatitis panels as well as possible endoscopy. Also mention of positive blood cultures and ID consult. Patient with postive occult stool and inquired emergent management overnight. Patient currently in ICU, after rectal bleeding, coffee ground emesis noted, pt went for STAT EGD, received multiple blood transfusions and blood products. Remains intubated and on mechanical ventilation in ICU. ontinued monitoring of H/H which has stabilized, GI note reviewed and mentioned continued octeotride. Possible extubation if stable. More awake, not climbing out of bed but, somnolent still. Surgery note reviewed and mentioned EGD may be considered for rebleed but if surgery needed may require tertiary care facility. ID note reviewed, no need to treat with Abx. Surgery note reviewed and mentioned EGD may be considered for rebleed but if surgery needed may require tertiary care facility. Continue GI and hematologic optimization. Monitor H and H, tranfuse as needed. Wean sedation, extubation as able. Continue to monitor mental status. Continue Abx as per primary. Critical care time 35 mins. (
[2019-09-20 09:25] LABS: BASO % 0.5 % (0-2.0); EOS % 4.6 % (0-4.5); HEMATOCRIT 28.8 % (35.4-49); HEMOGLOBIN 9.7 GM/dL (11.7-16.9); LYMPH % 12.7 % (8-40); MCH 29.9 pg (25.7-33.7); MCHC 33.6 g/dl (32.0-35.9); MEAN CELL VOLUME 88.8 fl (80-96); MEAN PLT VOLUME 9.2 fl (7.5-11.1); MONO % 7.3 % (3.8-10.2); NEUT % 74.9 % (42.8-82.8); PLATELET COUNT 48 K/MM3 (134-434); RBC 3.24 M/mm3 (4.00-5.60); RDW 17.7 % (11.9-15.9); WHITE BLOOD COUNT 5.1 K/mm3 (4.0-10.0)
[2019-09-20 09:40] LABS: INR 1.32 (0.83-1.09); PROTHROMBIN TIME (PATIENT) 15.6 SEC (9.7-13.0)
--- NOTE | 2019-09-20 09:43 | PN ---
Progress Note (short form) - Note Progress Note: events noted-asked to f/u positive blood culture remains intubated on ceftriaxone for SBP prophylaxis per GI episode GI bleed, reruired intubation for endoscopy 09/17 gastric ulcer requiring clipping remains intubated Vital Signs Period Temp Pulse Resp BP Sys/Shen Pulse Ox Last 24 Hr 97.9 F-98.4 F 57-77 09-20 101-144/50-66 100 cor-rrr lungs clear abd soft,nt ext no edema CBC, BMP 09/20/19 09:05 Microbiology 09/13/19 12:45 Blood - Peripheral Venous Blood Culture - Final NO GROWTH AFTER 5 DAYS INCUBATION 09/13/19 12:45 Blood - Peripheral Venous Blood Culture - Final Staphylococcus Epidermidis 09/13/19 15:15 Urine - Urine Clean Catch Urine Culture - Final Normal Urogenital Susana Current Medications Fentanyl (Sublimaze Injection -) 12.5 mcg IVPUSH Q1H PRN PRN Reason: AGITATION Stop: 09/20/19 16:29 Last Admin: 09/19/19 16:36 Dose: 12.5 mcg Octreotide Acetate 200 mcg/Octreotide Acetate 1,000 mcg/Dextrose 500 mls @ 20.833 mls/hr IVPB ASDIR REBEL Last Admin: 09/19/19 15:23 Dose: 20.833 mls/hr Propofol (Diprivan -) 1,000,000 mcg in 100 mls @ 2.198 mls/hr IVPB TITR REBEL; Protocol Last Admin: 09/20/19 08:00 Dose: 50 mcg/kg/min, 21.977 mls/hr Pantoprazole Sodium 80 mg/ (Sodium Chloride) 100 mls @ 10 mls/hr IVPB Q10H REBEL Last Admin: 09/20/19 05:11 Dose: 10 mls/hr Ceftriaxone Sodium 1 gm/ (Dextrose) 50 mls @ 100 mls/hr IVPB DAILY [facility]; Protocol Last Admin: 09/19/19 10:49 Dose: 100 mls/hr Insulin Aspart (Novolog Vial Sliding Scale -) 1 vial SQ ACHS REBEL; Protocol Last Admin: 09/20/19 06:02 Dose: Not Given a/p isolated Staph epei in one blood culture c/w skin contaminant no need to treat further management of GI bleed and ventilator per GI and ICU team sbp prophylaxis per GI please call back if needed Problem List - Problems (1) Bacteremia Code(s): R78.81 - BACTEREMIA (2) Altered mental status Code(s): R41.82 - ALTERED MENTAL STATUS, UNSPECIFIED Qualifiers: Altered mental status type: unspecified Qualified Code(s): R41.82 - Altered mental status, unspecified (3) Cirrhosis Code(s): K74.60 - UNSPECIFIED CIRRHOSIS OF LIVER Qualifiers: Hepatic cirrhosis type: unspecified hepatic cirrhosis Ascites presence: with ascites Qualified Code(s): K74.60 - Unspecified cirrhosis of liver; R18.8 - Other ascites
--- NOTE | 2019-09-20 09:46 | PN ---
Progress Note, Physician History of Present Illness: GI FOLLOW UP NOTE Patient examined and case discussed with Dr Fish Patient is intubated and sedated. Orogastric tube connected to suction with coffee ground contents noted in tube. As per RN one small episode of melena last night. Labs show downtrend in Hg from 10.9 to 9.7.He has ocreotide drip infusing. - Current Medication List Current Medications: Active Medications Fentanyl (Sublimaze Injection -) 12.5 mcg IVPUSH Q1H PRN PRN Reason: AGITATION Stop: 09/20/19 16:29 Last Admin: 09/19/19 16:36 Dose: 12.5 mcg Octreotide Acetate 200 mcg/Octreotide Acetate 1,000 mcg/Dextrose 500 mls @ 20.833 mls/hr IVPB ASDIR REBEL Last Admin: 09/19/19 15:23 Dose: 20.833 mls/hr Propofol (Diprivan -) 1,000,000 mcg in 100 mls @ 2.198 mls/hr IVPB TITR REBEL; Protocol Last Admin: 09/20/19 08:00 Dose: 50 mcg/kg/min, 21.977 mls/hr Pantoprazole Sodium 80 mg/ (Sodium Chloride) 100 mls @ 10 mls/hr IVPB Q10H REBEL Last Admin: 09/20/19 05:11 Dose: 10 mls/hr Ceftriaxone Sodium 1 gm/ (Dextrose) 50 mls @ 100 mls/hr IVPB DAILY REBEL; Protocol Last Admin: 09/19/19 10:49 Dose: 100 mls/hr Insulin Aspart (Novolog Vial Sliding Scale -) 1 vial SQ ACHS REBEL; Protocol Last Admin: 09/20/19 06:02 Dose: Not Given - Objective Vital Signs: Vital Signs Temperature 97.9 F 09/20/19 06:00 Pulse Rate 57 L 09/20/19 08:00 Respiratory Rate 13 09/20/19 09:00 Blood Pressure 103/55 L 09/20/19 08:00 O2 Sat by Pulse Oximetry (%) 100 09/19/19 21:27 Constitutional: Yes: Other (sedated) HENT: Yes: Atraumatic Cardiovascular: Yes: Regular Rate and Rhythm Respiratory: Yes: Regular, Diminished, Mechanically Ventilated Gastrointestinal: Yes: Normal Bowel Sounds, Soft Neurological: Yes: Other (sedated) Labs: CBC, BMP 11/18/19 09:05 INR, PTT INR 1.32 (0.83-1.09) H 09/20/19 09:05 Fibrinogen 175.0 mg/dL (238-498) L 09/19/19 06:20
[2019-09-20 09:54] LABS: ALBUMIN 2.3 g/dl (3.4-5.0); BILIRUBIN,TOTAL 1.9 mg/dL (0.2-1); BLOOD UREA NITROGEN 47.1 mg/dL (7-18); CALCIUM 7.3 mg/dL (8.5-10.1); CREATININE 1.7 mg/dL (0.55-1.3); POTASSIUM 4.3 mmol/L (3.5-5.1)
[2019-09-20] MEDS ORDERED: cefTRIAXone SODIUM 1 GM VIAL ONE (09:56)
[2019-09-20] MEDS ORDERED: DEXTROSE 5%-WATER - 50 ML IVPB ONE (09:57)
[2019-09-20] MEDS: CEFTRIAXONE 1 GM in DEXTROSE 5%-WATER - 50 ML IVPB SCH (10:02)
--- NOTE | 2019-09-20 11:35 | PN ---
Progress Note, Physician Chief Complaint: Sedated and intubated maintained on octreotide and Protonix gtt. - Current Medication List Current Medications: Active Medications Fentanyl (Sublimaze Injection -) 12.5 mcg IVPUSH Q1H PRN PRN Reason: AGITATION Stop: 09/20/19 16:29 Last Admin: 09/19/19 16:36 Dose: 12.5 mcg Octreotide Acetate 200 mcg/Octreotide Acetate 1,000 mcg/Dextrose 500 mls @ 20.833 mls/hr IVPB ASDIR REBEL Last Admin: 09/19/19 15:23 Dose: 20.833 mls/hr Propofol (Diprivan -) 1,000,000 mcg in 100 mls @ 2.198 mls/hr IVPB TITR REBEL; Protocol Last Admin: 09/20/19 08:00 Dose: 50 mcg/kg/min, 21.977 mls/hr Pantoprazole Sodium 80 mg/ (Sodium Chloride) 100 mls @ 10 mls/hr IVPB Q10H REBEL Last Admin: 09/20/19 05:11 Dose: 10 mls/hr Ceftriaxone Sodium 1 gm/ (Dextrose) 50 mls @ 100 mls/hr IVPB DAILY REBEL; Protocol Last Admin: 09/20/19 10:02 Dose: 100 mls/hr Insulin Aspart (Novolog Vial Sliding Scale -) 1 vial SQ ACHS REBEL; Protocol Last Admin: 09/20/19 06:02 Dose: Not Given - Objective Vital Signs: Vital Signs Temperature 97.7 F 09/20/19 10:00 Pulse Rate 55 L 09/20/19 10:00 Respiratory Rate 13 09/20/19 10:00 Blood Pressure 99/50 L 09/20/19 10:00 O2 Sat by Pulse Oximetry (%) 100 09/20/19 09:50 Constitutional: Yes: No Distress, Calm, Thin Neck: Yes: Supple Cardiovascular: Yes: Regular Rate and Rhythm Respiratory: Yes: Intubated, Mechanically Ventilated Gastrointestinal: Yes: Soft, Hypoactive Bowel Sounds Edema: No Labs: CBC, BMP 09/20/19 09:05 09/20/19 08:12 INR, PTT INR 1.32 (0.83-1.09) H 09/20/19 09:05 Fibrinogen 175.0 mg/dL (238-498) L 09/19/19 06:20 Assessment/Plan - Problems (1) Altered mental status Code(s): R41.82 - ALTERED MENTAL STATUS, UNSPECIFIED Qualifiers: Altered mental status type: unspecified Qualified Code(s): R41.82 - Altered mental status, unspecified Mechanical ventilation per ABG (2) Anemia Code(s): D64.9 - ANEMIA, UNSPECIFIED (3) GI bleeding Assessment/Plan: s/p EGD showing gastric ulcer s/p clipping No further fresh bleed noted on irrigation, serial CBC, PLT On octreotide and protonix gtt, empiric abx Code(s): K92.2 - GASTROINTESTINAL HEMORRHAGE, UNSPECIFIED (4) Hepatic encephalopathy Code(s): K72.90 - HEPATIC FAILURE, UNSPECIFIED WITHOUT COMA (5) Cirrhosis Code(s): K74.60 - UNSPECIFIED CIRRHOSIS OF LIVER Qualifiers: Hepatic cirrhosis type: unspecified hepatic cirrhosis Ascites presence: with ascites Qualified Code(s): K74.60 - Unspecified cirrhosis of liver; R18.8 - Other ascites (6) Hepatitis C Code(s): B19.20 - UNSPECIFIED VIRAL HEPATITIS C WITHOUT HEPATIC COMA Qualifiers: Viral hepatitis chronicity: chronic Hepatic coma status: without hepatic coma Qualified Code(s): B18.2 - Chronic viral hepatitis C (7) Hypertension Code(s): I10 - ESSENTIAL (PRIMARY) HYPERTENSION Qualifiers: Hypertension type: essential hypertension Qualified Code(s): I10 - Essential (primary) hypertension (8) LBBB (left bundle branch block) Assessment/Plan: EKG: NSR; LBBB (no change from June EKG) TNI < 0.02; f/u serially. TSH WNL. ECHO 11/2018: technically limitied study: normal LVEF; mild TR; unable to assess RV. Recommend f/u study. No prior coronary workup noted. Check outpatient records. Code(s): I44.7 - LEFT BUNDLE-BRANCH BLOCK, UNSPECIFIED
--- NOTE | 2019-09-20 11:50 | PN ---
Teaching Attending Note Name of Resident: Kj Robledo ATTENDING PHYSICIAN STATEMENT I saw and evaluated the patient. I reviewed the resident's note and discussed the case with the resident. I agree with the resident's findings and plan as documented. SUBJECTIVE: Patient seen and examined in the ICU. Remains intubated and sedated. No occult bleeding noted. Slight drift in H&H. For EGD today. Intake & Output 09/17/19 09/18/19 09/19/19 09/20/19 23:59 23:59 23:59 23:59 Intake Total 6150 2242 459 530 Output Total 600 950 600 Balance 6150 1642 -491 -70 Weight 207 lb 1.6 oz 205 lb Last Vital Signs Temp Pulse Resp BP Pulse Ox 97.7 F 55 L 13 99/50 L 100 09/20/19 10:00 09/20/19 10:00 09/20/19 10:00 09/20/19 10:00 09/20/19 09:50 Active Medications Fentanyl (Sublimaze Injection -) 12.5 mcg IVPUSH Q1H PRN PRN Reason: AGITATION Stop: 09/20/19 16:29 Last Admin: 09/19/19 16:36 Dose: 12.5 mcg Octreotide Acetate 200 mcg/Octreotide Acetate 1,000 mcg/Dextrose 500 mls @ 20.833 mls/hr IVPB ASDIR REBEL Last Admin: 09/19/19 15:23 Dose: 20.833 mls/hr Propofol (Diprivan -) 1,000,000 mcg in 100 mls @ 2.198 mls/hr IVPB TITR REBEL; Protocol Last Admin: 09/20/19 08:00 Dose: 50 mcg/kg/min, 21.977 mls/hr Pantoprazole Sodium 80 mg/ (Sodium Chloride) 100 mls @ 10 mls/hr IVPB Q10H REBEL Last Admin: 09/20/19 05:11 Dose: 10 mls/hr Ceftriaxone Sodium 1 gm/ (Dextrose) 50 mls @ 100 mls/hr IVPB DAILY REBEL; Protocol Last Admin: 09/20/19 10:02 Dose: 100 mls/hr Insulin Aspart (Novolog Vial Sliding Scale -) 1 vial SQ ACHS REBEL; Protocol Last Admin: 09/20/19 06:02 Dose: Not Given Gen: intubated, in NAD HEENT-PERRL, Sclera Icterus, orally intubated Resp: Vented, clear CV: Regular Rate and Rhythm, S1, S2 Abd: Soft, NT; hypoactive BS Ext: trace ble edema; + pulses Neuro: Sedated Laboratory Results - last 24 hr 09/19/19 09/19/19 09/19/19 15:20 17:37 21:43 WBC 9.2 RBC 3.62 L Hgb 10.9 L Hct 32.2 L D MCV 88.8 MCH 30.1 MCHC 33.9 RDW 18.0 H Plt Count 67 L D MPV 9.5 Absolute Neuts (auto) Neutrophils % Lymphocytes % Monocytes % Eosinophils % Basophils % Nucleated RBC % PT with INR INR Sodium Potassium Chloride Carbon Dioxide Anion Gap BUN Creatinine Est GFR (CKD-EPI)AfAm Est GFR (CKD-EPI)NonAf POC Glucometer 139 151 Random Glucose Calcium Total Bilirubin AST ALT Alkaline Phosphatase Total Protein Albumin 09/20/19 09/20/19 09/20/19 05:24 08:12 09:05 WBC 5.1 RBC 3.24 L Hgb 9.7 L Hct 28.8 L MCV 88.8 MCH 29.9 MCHC 33.6 RDW 17.7 H Plt Count 48 L D MPV 9.2 Absolute Neuts (auto) 3.9 Neutrophils % 74.9 Lymphocytes % 12.7 D Monocytes % 7.3 Eosinophils % 4.6 H Basophils % 0.5 Nucleated RBC % 0 PT with INR INR Sodium 141 Potassium 4.3 Chloride 115 H Carbon Dioxide 21 Anion Gap 5 L BUN 47.1 H Creatinine 1.7 H Est GFR (CKD-EPI)AfAm 46.33 Est GFR (CKD-EPI)NonAf 39.97 POC Glucometer 144 Random Glucose 151 H Calcium 7.3 L Total Bilirubin 1.9 H AST 34 ALT 27 Alkaline Phosphatase 108 Total Protein 5.0 L Albumin 2.3 L 09/20/19 09:05 WBC RBC Hgb Hct MCV MCH MCHC RDW Plt Count MPV Absolute Neuts (auto) Neutrophils % Lymphocytes % Monocytes % Eosinophils % Basophils % Nucleated RBC % PT with INR 15.60 H INR 1.32 H Sodium Potassium Chloride Carbon Dioxide Anion Gap BUN Creatinine Est GFR (CKD-EPI)AfAm Est GFR (CKD-EPI)NonAf POC Glucometer Random Glucose Calcium Total Bilirubin AST ALT Alkaline Phosphatase Total Protein Albumin Problem List - Problems (1) Respiratory failure Code(s): J96.90 - RESPIRATORY FAILURE, UNSP, UNSP W HYPOXIA OR HYPERCAPNIA (2) Hemorrhagic shock Code(s): R57.8 - OTHER SHOCK (3) GI bleeding Code(s): K92.2 - GASTROINTESTINAL HEMORRHAGE, UNSPECIFIED (4) Cirrhosis Code(s): K74.60 - UNSPECIFIED CIRRHOSIS OF LIVER Qualifiers: (5) Hepatitis C Code(s): B19.20 - UNSPECIFIED VIRAL HEPATITIS C WITHOUT HEPATIC COMA Qualifiers: Assessment/Plan AC Mode of vent For EGD Mechanical VTE prophylaxis PPI and octreotide drips Serial CBC Trend LFTs PLT for goal >50 ABX per ID NGT to LWS Requires ICU monitoring Dr Rodriguez Critical care time spent in reviewing chart, evaluating patient and formulating plan - 36 minutes.
[2019-09-20] MEDS ORDERED: PT OWN MED DRAWER 7, Y5N ONE ×3 (13:10→18:50)
--- NOTE | 2019-09-20 15:12 | CONSULT ---
Consultation: REQUESTING PROVIDER: Dr. Huggins CONSULT SERVICE: Nephrology HISTORY OF PRESENT ILLNESS: Patient is a 68 year old male with history of diabetes mellitus, cirrhosis, Hepatitis C, asthma, hypertension, hyperlipidemia, initially presented for altered mental status. During hospital course patient had numerous episodes of hematochezia for which he underwent EGD with gastric vessel that was clipped, injected and cauterized. Negative genny blood within OG tube subsequently. Patient remains intubated, sedated with tenuous blood pressures s/p numerous transfusions of PRBCs, FFP, Platelets. On octreotide, and Protonix drips. Patient for repeat endoscopic study today. Past medical history:diabetes mellitus, Cirrhosis, Hepatitis C, asthma Past surgical history: EGD 2018, cataracts, Family history: grandmother with diabetes mellitus Allergies: shellfish Social history: Former smoker. Reported prior alcohol use of two beers until one year ago. Former intranasal cocaine use documented. 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 REVIEW OF SYSTEMS: As per HPI. Unable to obtain further; patient is intubated, sedated. PHYSICAL EXAMINATION Vital Signs - 24 hr 09/19/19 09/19/19 09/19/19 16:00 16:58 18:00 Temperature 98.1 F 98.4 F Pulse Rate 72 66 Respiratory 13 18 12 Rate Blood Pressure 131/54 L 108/52 L O2 Sat by Pulse Oximetry (%) 09/19/19 09/19/19 09/19/19 19:00 20:00 20:30 Temperature Pulse Rate 69 72 Respiratory 13 13 12 Rate Blood Pressure 104/53 L 123/58 L O2 Sat by Pulse Oximetry (%) 09/19/19 09/19/19 09/19/19 21:00 21:27 22:00 Temperature 98.0 F Pulse Rate 77 73 Respiratory 12 14 11 Rate Blood Pressure 129/65 121/63 O2 Sat by Pulse 100 Oximetry (%) 09/19/19 09/20/19 09/20/19 23:54 00:00 01:00 Temperature Pulse Rate 77 75 Respiratory 14 12 12 Rate Blood Pressure 131/61 121/65 O2 Sat by Pulse Oximetry (%) 09/20/19 09/20/19 09/20/19 02:00 03:00 04:00 Temperature 98.0 F Pulse Rate 73 73 74 Respiratory 12 13 13 Rate Blood Pressure 127/58 L 128/61 144/66 O2 Sat by Pulse Oximetry (%) 09/20/19 09/20/19 09/20/19 04:05 05:00 06:00 Temperature 97.9 F Pulse Rate 71 60 Respiratory 12 12 12 Rate Blood Pressure 118/56 L 101/50 L O2 Sat by Pulse Oximetry (%) 09/20/19 09/20/19 09/20/19 08:00 09:00 09:50 Temperature Pulse Rate 58 L Respiratory 13 13 13 Rate Blood Pressure 103/55 L O2 Sat by Pulse 100 100 Oximetry (%) 09/20/19 09/20/19 09/20/19 10:00 12:00 14:00 Temperature 97.7 F 97.2 F L Pulse Rate 55 L 52 L 56 L Respiratory 13 13 14 Rate Blood Pressure 99/50 L 103/49 L 107/47 L O2 Sat by Pulse Oximetry (%) GENERAL: Intubated, sedated. HEENT: Scleral icterus bilaterally. LUNGS: Mechanically vented breath sounds equal, clear to auscultation bilaterally. HEART: Regular rate and rhythm, normal S1 and S2 without murmur, rub or gallop. ABDOMEN: Soft, nontender. Mild distension. Hypoactive bowel sounds X4 quadrants. EXTREMITIES: 2+ pulses, warm, well-perfused. 2+ peripheral edema bilateral lower extremities, 1+ edema bilateral upper extremities. NEUROLOGICAL: Sedated. SKIN: Warm, dry. Laboratory Results - last 24 hr 09/16/19 09/17/19 09/19/19 06:15 12:10 15:20 WBC 9.2 RBC 3.62 L Hgb 10.9 L Hct 32.2 L D MCV 88.8 MCH 30.1 MCHC 33.9 RDW 18.0 H Plt Count 67 L D MPV 9.5 Absolute Neuts (auto) Neutrophils % Lymphocytes % Monocytes % Eosinophils % Basophils % Nucleated RBC % PT with INR INR Sodium Potassium Chloride Carbon Dioxide Anion Gap BUN Creatinine Est GFR (CKD-EPI)AfAm Est GFR (CKD-EPI)NonAf POC Glucometer Random Glucose Calcium Total Bilirubin AST ALT Alkaline Phosphatase Total Protein Albumin Ur Random Creatinine Ur Random Sodium Ur Random Potassium Ur Random Chloride HCV Quantitation Hcv not detected HCV RNA log copies/mL TNP Blood Type A POSITIVE Antibody Screen Negative Crossmatch See Detail 09/19/19 09/19/19 09/20/19 17:37 21:43 05:24 WBC RBC Hgb Hct MCV MCH MCHC RDW Plt Count MPV Absolute Neuts (auto) Neutrophils % Lymphocytes % Monocytes % Eosinophils % Basophils % Nucleated RBC % PT with INR INR Sodium Potassium Chloride Carbon Dioxide Anion Gap BUN Creatinine Est GFR (CKD-EPI)AfAm Est GFR (CKD-EPI)NonAf POC Glucometer 139 151 144 Random Glucose Calcium Total Bilirubin AST ALT Alkaline Phosphatase Total Protein Albumin Ur Random Creatinine Ur Random Sodium Ur Random Potassium Ur Random Chloride HCV Quantitation HCV RNA log copies/mL Blood Type Antibody Screen Crossmatch 09/20/19 09/20/19 09/20/19 08:12 09:05 09:05 WBC 5.1 RBC 3.24 L Hgb 9.7 L Hct 28.8 L MCV 88.8 MCH 29.9 MCHC 33.6 RDW 17.7 H Plt Count 48 L D MPV 9.2 Absolute Neuts (auto) 3.9 Neutrophils % 74.9 Lymphocytes % 12.7 D Monocytes % 7.3 Eosinophils % 4.6 H Basophils % 0.5 Nucleated RBC % 0 PT with INR 15.60 H INR 1.32 H Sodium 141 Potassium 4.3 Chloride 115 H Carbon Dioxide 21 Anion Gap 5 L BUN 47.1 H Creatinine 1.7 H Est GFR (CKD-EPI)AfAm 46.33 Est GFR (CKD-EPI)NonAf 39.97 POC Glucometer Random Glucose 151 H Calcium 7.3 L Total Bilirubin 1.9 H AST 34 ALT 27 Alkaline Phosphatase 108 Total Protein 5.0 L Albumin 2.3 L Ur Random Creatinine Ur Random Sodium Ur Random Potassium Ur Random Chloride HCV Quantitation HCV RNA log copies/mL Blood Type Antibody Screen Crossmatch 09/20/19 09/20/19 09/20/19 11:56 12:30 12:30 WBC RBC Hgb Hct MCV MCH MCHC RDW Plt Count MPV Absolute Neuts (auto) Neutrophils % Lymphocytes % Monocytes % Eosinophils % Basophils % Nucleated RBC % PT with INR INR Sodium Potassium Chloride Carbon Dioxide Anion Gap BUN Creatinine Est GFR (CKD-EPI)AfAm Est GFR (CKD-EPI)NonAf POC Glucometer 150 Random Glucose Calcium Total Bilirubin AST ALT Alkaline Phosphatase Total Protein Albumin Ur Random Creatinine 100.0 Ur Random Sodium 12 L Ur Random Potassium 24.0 L Ur Random Chloride < 11 L HCV Quantitation HCV RNA log copies/mL Blood Type Antibody Screen Crossmatch Active Medications Generic Name Dose Route Start Last Admin Trade Name Freq PRN Reason Stop Dose Admin Fentanyl 12.5 mcg 09/19/19 16:30 09/19/19 16:36 Sublimaze Injection - IVPUSH 09/20/19 16:29 12.5 mcg Q1H PRN Administration AGITATION Octreotide Acetate 200 mcg/ 500 mls @ 20.833 mls/hr 09/17/19 12:00 09/19/19 15:23 Octreotide Acetate 1,000 mcg/ IVPB 20.833 mls/hr Dextrose ASDIR REBEL Administration Propofol 1,000,000 mcg in 100 mls @ 2.198 mls/hr 09/17/19 18:15 09/20/19 12: 58 Diprivan - IVPB 50 mcg/kg/min TITR REBEL 21.977 mls/hr Administration Protocol 5 MCG/KG/MIN Pantoprazole Sodium 80 mg/ 100 mls @ 10 mls/hr 09/17/19 18:15 09/20/19 05:11 Sodium Chloride IVPB 10 mls/hr Q10H REBEL Administration 8 MG/HR Ceftriaxone Sodium 1 gm/ 50 mls @ 100 mls/hr 09/18/19 10:00 09/20/19 10:02 Dextrose IVPB 100 mls/hr DAILY REBEL Administration Protocol Insulin Aspart 1 vial 09/17/19 16:30 09/20/19 12:00 Novolog Vial Sliding Scale - SQ Not Given ACHS REBEL Protocol ASSESSMENT/PLAN: Patient is a 68 year old male with history of diabetes mellitus, cirrhosis, Hepatitis C, asthma, hypertension, hyperlipidemia, initially presented for altered mental status, s/p episodes of hematochezia with subsequent EGD and transfusions. Acute kidney injury -Given acute blood loss anemia secondary to GI bleeding, likely pre-renal etiology. FeNa 0.1%. Concerning for ATN. -Patient has received PRBC, and IV normal saline volume resuscitation. -Follow renal US. Generalized edema -Hypoalbuminemia, with diminished oncotic pressure; likely contributing factor for third-spacing of fluids. -Lasix as needed, hemodyanics permitting. Disposition: We will continue to follow the patient. Thank you for this consultative opportunity. Visit type - Emergency Visit Emergency Visit: No - New Patient This patient is new to me today: No - Critical Care Critical Care patient: Yes Total Critical Care Time (in minutes): 36 Critical Care Statement: The care of this patient involved high complexity decision making to prevent further life threatening deterioration of the patient 's condition and/or to evaluate & treat vital organ system(s) failure or risk of failure. ATTENDING PHYSICIAN STATEMENT I saw and evaluated the patient. I reviewed the resident's note and discussed the case with the resident. I agree with the resident's findings and plan as documented. SUBJECTIVE: OBJECTIVE: ASSESSMENT AND PLAN:
--- NOTE | 2019-09-20 15:20 | ECHO ---
Name: MARJORIE FOX Exam:Adult Echocardiogram Study Date: 09/20/2019 12:21 PM Age: 68 yrs Reason For Study: evaluate cardiac function Height: 65 in Weight: 161 lb BSA: 1.8 m2 MMode/2D Measurements & Calculations IVSd: 0.74 cm Ao root diam: 3.5 cm LVIDd: 5.2 cm LA dimension: 5.3 cm LVIDs: 3.8 cm ACS: 1.7 cm LVPWd: 0.83 cm IVSs: 1.1 cm LVPWs: 1.3 cm EDV(Teich): 127.3 ml ESV(Anselmoich): 61.7 ml LVOT diam: 2.1 cm Doppler Measurements & Calculations MV E max jordi: 79.0 cm/sec Ao V2 max: 184.8 cm/sec MV A max jordi: 63.9 cm/sec Ao max P.7 mmHg MV E/A: 1.2 Ao V2 mean: 123.1 cm/sec Ao mean P.0 mmHg Ao V2 VTI: 47.0 cm ORAL(I,D): 1.9 cm2 ORAL(V,D): 1.8 cm2 LV V1 max P.9 mmHg MR max jordi: 356.8 cm/sec LV V1 mean P.1 mmHg MR max P.0 mmHg LV V1 max: 98.2 cm/sec LV V1 mean: 68.1 cm/sec LV V1 VTI: 25.6 cm SV(LVOT): 87.5 ml TR max jordi: 187.6 cm/sec TR max P.1 mmHg Med Peak E' Jordi: 4.6 cm/sec Med E/e': 17.4 Lat Peak E' Jordi: 6.0 cm/sec Lat E/e': 13.2 Procedure A complete two-dimensional transthoracic echocardiogram was performed (2D, M-mode, Doppler and color flow Doppler). Left Ventricle The left ventricle is normal in size. Left ventricular systolic function is low normal. Ejection Frac tion = 50-55%. No regional wall motion abnormalities noted. Right Ventricle The right ventricle is not well visualized. Atria The left atrium is mildly dilated. The right atrium is mildly dilated. Mitral Valve There is mild mitral valve thickening. There is mild mitral regurgitation. Tricuspid Valve The tricuspid valve is normal in structure and function. There is mild tricuspid regurgitation. Right ventricular systolic pressure is normal. Aortic Valve There is mild aortic valve thickening. No aortic regurgitation is present. Pulmonic Valve The pulmonic valve is not well visualized. Great Vessels The aortic root is normal size. Pericardium/Pleura There is no pericardial effusion. Interpretation Summary The left ventricle is normal in size. Left ventricular systolic function is low normal. No regional wall motion abnormalities noted. Ejection Fraction = 50-55%. The right ventricle is not well visualized. The left atrium is mildly dilated. The right atrium is mildly dilated. There is mild mitral valve thickening. There is mild mitral regurgitation. There is mild tricuspid regurgitation. Right ventricular systolic pressure is normal. There is mild aortic valve thickening. There is no pericardial effusion. Sandeep Yen MD 09/20/2019 03:19 PM
[2019-09-20] MEDS ORDERED: METOCLOPRAMIDE HCL INJECTION 10 MG/2 ML VIAL IVPUSH PRN (15:59)
--- NOTE | 2019-09-20 16:21 | PN ---
Progress Note (short form) - Note Progress Note: Pt. returned from EGD. 2 units FFP and 1 unit platelets ordered as per Dr. Fish.
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
--- NOTE | 2019-09-20 18:29 | PN ---
Progress Note, Physician History of Present Illness: intubated and sedated - Current Medication List Current Medications: Active Medications Octreotide Acetate 200 mcg/Octreotide Acetate 1,000 mcg/Dextrose 500 mls @ 20.833 mls/hr IVPB ASDIR REBEL Last Admin: 09/19/19 15:23 Dose: 20.833 mls/hr Propofol (Diprivan -) 1,000,000 mcg in 100 mls @ 2.198 mls/hr IVPB TITR REBEL; Protocol Last Admin: 09/20/19 12:58 Dose: 50 mcg/kg/min, 21.977 mls/hr Pantoprazole Sodium 80 mg/ (Sodium Chloride) 100 mls @ 10 mls/hr IVPB Q10H REBEL Last Admin: 09/20/19 16:31 Dose: 10 mls/hr Ceftriaxone Sodium 1 gm/ (Dextrose) 50 mls @ 100 mls/hr IVPB DAILY [facility]; Protocol Last Admin: 09/20/19 10:02 Dose: 100 mls/hr Insulin Aspart (Novolog Vial Sliding Scale -) 1 vial SQ ACHS REBEL; Protocol Last Admin: 09/20/19 16:36 Dose: Not Given Metoclopramide HCl (Reglan Injection -) 10 mg IVPUSH Q8H PRN PRN Reason: NAUSEA AND/OR VOMITING - Objective Vital Signs: Vital Signs Temperature 97.2 F L 09/20/19 14:00 Pulse Rate 56 L 09/20/19 14:00 Respiratory Rate 14 09/20/19 16:15 Blood Pressure 107/47 L 09/20/19 14:00 O2 Sat by Pulse Oximetry (%) 100 09/20/19 09:50 Constitutional: Yes: No Distress HENT: Yes: Atraumatic Neck: Yes: Supple Cardiovascular: Yes: Regular Rate and Rhythm Respiratory: Yes: CTA Bilaterally Gastrointestinal: Yes: Normal Bowel Sounds Extremities: Yes: WNL Neurological: Yes: Alert Labs: CBC, BMP 09/20/19 09:05 09/20/19 08:12 INR, PTT INR 1.32 (0.83-1.09) H 09/20/19 09:05 Fibrinogen 175.0 mg/dL (238-498) L 09/19/19 06:20 Problem List - Problems (1) Altered mental status Assessment/Plan: intubated had egd...today Code(s): R41.82 - ALTERED MENTAL STATUS, UNSPECIFIED Qualifiers: Altered mental status type: unspecified Qualified Code(s): R41.82 - Altered mental status, unspecified (2) Aphasia Code(s): R47.01 - APHASIA (3) Hepatic encephalopathy Assessment/Plan: intubated Code(s): K72.90 - HEPATIC FAILURE, UNSPECIFIED WITHOUT COMA (4) Cirrhosis Code(s): K74.60 - UNSPECIFIED CIRRHOSIS OF LIVER Qualifiers: Hepatic cirrhosis type: unspecified hepatic cirrhosis Ascites presence: with ascites Qualified Code(s): K74.60 - Unspecified cirrhosis of liver; R18.8 - Other ascites (5) Hepatitis C Code(s): B19.20 - UNSPECIFIED VIRAL HEPATITIS C WITHOUT HEPATIC COMA Qualifiers: Viral hepatitis chronicity: chronic Hepatic coma status: without hepatic coma Qualified Code(s): B18.2 - Chronic viral hepatitis C (6) Hypertension Code(s): I10 - ESSENTIAL (PRIMARY) HYPERTENSION Qualifiers: Hypertension type: essential hypertension Qualified Code(s): I10 - Essential (primary) hypertension (7) Anemia Assessment/Plan: s/p egd prbc transfusion Code(s): D64.9 - ANEMIA, UNSPECIFIED (8) Bacteremia Assessment/Plan: d/w id no need for abx 1 bottle is positive which could be contamination Code(s): R78.81 - BACTEREMIA (9) GI bleeding Assessment/Plan: follow up h/h transfuse prbc...2 units gi follow up Code(s): K92.2 - GASTROINTESTINAL HEMORRHAGE, UNSPECIFIED
[2019-09-20] MEDS: OCTREOTIDE ACETATE 200 MCG, OCTREOTIDE ACETATE 1,000 MCG in DEXTROSE 5%-WATER - 496 ML IVPB SCH (18:53)
[2019-09-21] MEDS: PANTOPRAZOLE SODIUM 80 MG in SODIUM CHLORIDE 100 ML IVPB SCH ×3 (02:26→23:02)
[2019-09-21 05:57] LABS: ARTERIAL BLD GAS O2 SATURATION 96.6 % (95-98); ARTERIAL BLOOD GAS BASE EXCESS -5.8 meq/l (-2-2); ARTERIAL BLOOD GAS PCO2 32.4 mmHg (35-45); ARTERIAL BLOOD GAS PO2 84.2 mmHg (80-100); ARTERIAL BLOOD GAS pH 7.37 (7.35-7.45)
[2019-09-21 06:06] LABS: ALLENS TEST POSITIVE
[2019-09-21] MEDS: PROPOFOL 1,000,000 MCG/100 ML VIAL IVPB SCH ×2 (06:20→23:00)
[2019-09-21] MEDS: INSULIN SLIDING SCALE (NOVOLOG) 1 VIAL SQ SCH ×4 (06:20→22:02)
[2019-09-21 07:49] LABS: BASO % 0.9 % (0-2.0); EOS % 3.9 % (0-4.5); HEMATOCRIT 28.1 % (35.4-49); HEMOGLOBIN 9.5 GM/dL (11.7-16.9); LYMPH % 12.7 % (8-40); MCH 29.9 pg (25.7-33.7); MCHC 33.8 g/dl (32.0-35.9); MEAN CELL VOLUME 88.6 fl (80-96); MEAN PLT VOLUME 9.3 fl (7.5-11.1); MONO % 6.9 % (3.8-10.2); NEUT % 75.6 % (42.8-82.8); PLATELET COUNT 54 K/MM3 (134-434); RBC 3.16 M/mm3 (4.00-5.60); RDW 17.8 % (11.9-15.9); WHITE BLOOD COUNT 4.4 K/mm3 (4.0-10.0)
[2019-09-21 08:09] LABS: ALBUMIN 2.4 g/dl (3.4-5.0); BILIRUBIN,TOTAL 1.8 mg/dL (0.2-1); BLOOD UREA NITROGEN 43.6 mg/dL (7-18); CALCIUM 7.8 mg/dL (8.5-10.1); CREATININE 1.6 mg/dL (0.55-1.3); MAGNESIUM 2.1 mg/dL (1.8-2.4); POTASSIUM 4.2 mmol/L (3.5-5.1)
[2019-09-21 08:30] LABS: INR 1.25 (0.83-1.09); PROTHROMBIN TIME (PATIENT) 14.8 SEC (9.7-13.0)
[2019-09-21 08:32] LABS: ACTIVATED PTT 33.7 SECONDS (25.2-36.5)
--- NOTE | 2019-09-21 08:47 | PN ---
Progress Note, Physician History of Present Illness: GI FOLLOW UP NOTE Patient examined and case discussed with Dr Fish Patient is intubated and sedated. Orogastric tube connected to suction with coffee ground contents noted in tube. As per RN no episodes of melena last night. Labs show downtrend in Hg from 9.7 to 9.5.He has ocreotide drip infusing. 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 - Current Medication List Current Medications: Active Medications Chlorhexidine Gluconate (Peridex -) 15 ml MM BID REBEL Octreotide Acetate 200 mcg/Octreotide Acetate 1,000 mcg/Dextrose 500 mls @ 20.833 mls/hr IVPB ASDIR REBEL Last Admin: 09/20/19 18:53 Dose: 20.833 mls/hr Propofol (Diprivan -) 1,000,000 mcg in 100 mls @ 2.198 mls/hr IVPB TITR REBEL; Protocol Last Admin: 09/21/19 06:20 Dose: 50 mcg/kg/min, 21.977 mls/hr Pantoprazole Sodium 80 mg/ (Sodium Chloride) 100 mls @ 10 mls/hr IVPB Q10H REBEL Last Admin: 09/21/19 02:26 Dose: 10 mls/hr Ceftriaxone Sodium 1 gm/ (Dextrose) 50 mls @ 100 mls/hr IVPB DAILY [facility]; Protocol Last Admin: 09/20/19 10:02 Dose: 100 mls/hr Insulin Aspart (Novolog Vial Sliding Scale -) 1 vial SQ ACHS [facility]; Protocol Last Admin: 09/21/19 06:20 Dose: 2 units Metoclopramide HCl (Reglan Injection -) 10 mg IVPUSH Q8H PRN PRN Reason: NAUSEA AND/OR VOMITING - Objective Vital Signs: Vital Signs Temperature 98.4 F 09/21/19 06:00 Pulse Rate 56 L 09/21/19 06:00 Respiratory Rate 14 09/21/19 08:40 Blood Pressure 127/54 L 09/21/19 06:00 O2 Sat by Pulse Oximetry (%) 98 09/21/19 03:48 Constitutional: Yes: Other (sedated) HENT: Yes: Atraumatic Cardiovascular: Yes: Bradycardia Respiratory: Yes: Regular, Diminished, Mechanically Ventilated Gastrointestinal: Yes: Soft, Hypoactive Bowel Sounds Neurological: Yes: Other (sedated) Labs: CBC, BMP 09/21/19 06:33 09/21/19 06:33 INR, PTT INR 1.25 (0.83-1.09) H 09/21/19 06:33 Fibrinogen 175.0 mg/dL (238-498) L 09/19/19 06:20 Problem List - Problems (1) GI bleeding Code(s): K92.2 - GASTROINTESTINAL HEMORRHAGE, UNSPECIFIED
--- NOTE | 2019-09-21 08:59 | PN ---
Progress Note (short form) - Note Progress Note: Neurology Chief Complaint: Altered Mental Status HPI: 68 y/o M with hx of IDDM, HCV, cirrhosis, asthma presenting to the ED for altered mental status from the night prior to admission. per notes, the reported he has appeared more lethargic since evening prior and had to be woken up out of bed to take meds and eat. However he was able to be put to sleep without issues. She noted that he had a fall out of bed. The morning of admission, the patient didnt wake up and was somnolent. He also had emesis and per , reported abd pain. She also states that he hasnt had a BM in 3days despite lactulose. On arrival patient was vomiting and required suctioning. states patient had no fever, cough, SOB, chest pain, hematemesis, BPR, dysuria. CT head was completed and did not show acute changes. Of note, patient was admitted to [facility] last week for therapeutic paracentesis. Was noted to have sscleral icterus, slight jaundice. Most likely toxic metabolic encephalopathy. On labs, ammonia level normal but hemoglobin and hematocrit reduced and suspicious for anemia.GI recommended Rifaximin aand lactulose, viral hepatitis panels as well as possible endoscopy. Also mention of positive blood cultures and ID consult. Patient with postive occult stool and inquired emergent management overnight. Patient currently in ICU, after rectal bleeding, coffee ground emesis noted, pt went for STAT EGD, received multiple blood transfusions and blood products. Remains intubated and on mechanical ventilation in ICU. Continued monitoring of H/H which has stabilized, GI note reviewed and mentioned continued octeotride. Surgery note reviewed and mentioned EGD may be considered for rebleed but if surgery needed may require tertiary care facility. Repeat EGD completed yesterday. Currently on antibiotics. Remains in ICU care on sedation and on mechanical ventilation, without purposeful movements. Active Medications Chlorhexidine Gluconate (Peridex -) 15 ml MM BID [facility] Octreotide Acetate 200 mcg/Octreotide Acetate 1,000 mcg/Dextrose 500 mls @ 20.833 mls/hr IVPB ASDIR REBEL Last Admin: 09/20/19 18:53 Dose: 20.833 mls/hr Propofol (Diprivan -) 1,000,000 mcg in 100 mls @ 2.198 mls/hr IVPB TITR [facility]; Protocol Last Admin: 09/21/19 06:20 Dose: 50 mcg/kg/min, 21.977 mls/hr Pantoprazole Sodium 80 mg/ (Sodium Chloride) 100 mls @ 10 mls/hr IVPB Q10H RE[facility] Last Admin: 09/21/19 02:26 Dose: 10 mls/hr Ceftriaxone Sodium 1 gm/ (Dextrose) 50 mls @ 100 mls/hr IVPB DAILY [facility]; Protocol Last Admin: 09/20/19 10:02 Dose: 100 mls/hr Insulin Aspart (Novolog Vial Sliding Scale -) 1 vial SQ ACHS [facility]; Protocol Last Admin: 09/21/19 06:20 Dose: 2 units Metoclopramide HCl (Reglan Injection -) 10 mg IVPUSH Q8H PRN PRN Reason: NAUSEA AND/OR VOMITING *Physical Exam Vital Signs Period Temp Pulse Resp BP Sys/Shen Pulse Ox Last 24 Hr 97.2 F-98.4 F 52-78 12-15 99-151/47-61 98-100 GENERAL: sedated and on ventilation HEAD: No signs of trauma, normocephalic, atraumatic EYES: EOMI, scleral icterus, conjunctiva clear ENT: Auricles normal inspection, hearing grossly normal, nares patent, oropharynx clear without exudates. Moist mucosa NECK: Normal ROM, no lymphadenopathy LUNGS: No increased work of breathing, symmetrical chest rise, clear to auscultation bilaterally, no wheezes, crackles or rhonchi HEART: Regular rate and rhythm, normal S1 and S2, no murmurs, peripheral pulses 2+ and equal bilaterally. ABDOMEN: Soft, nondistended, nontender, normoactive bowel sounds. No guarding, no rebound. No masses. No CVAT EXTREMITIES: Normal inspection, Normal range of motion, no edema. No clubbing or cyanosis. NEUROLOGICAL: sedated and on mechanical vent, moves extremities to pain, not following commands, no abnormal movements SKIN: jaundice CBCD WBC 4.4 K/mm3 (4.0-10.0) 09/21/19 06:33 RBC 3.16 M/mm3 (4.00-5.60) L 09/21/19 06:33 Hgb 9.5 GM/dL (11.7-16.9) L 09/21/19 06:33 Hct 28.1 % (35.4-49) L 09/21/19 06:33 MCV 88.6 fl (80-96) 09/21/19 06:33 MCHC 33.8 g/dl (32.0-35.9) 09/21/19 06:33 RDW 17.8 % (11.9-15.9) H 09/21/19 06:33 Plt Count 54 K/MM3 (134-434) L 09/21/19 06:33 MPV 9.3 fl (7.5-11.1) 09/21/19 06:33 CMP Sodium 141 mmol/L (136-145) 09/21/19 06:33 Potassium 4.2 mmol/L (3.5-5.1) 09/21/19 06:33 Chloride 117 mmol/L (98-107) H 09/21/19 06:33 Carbon Dioxide 19 mmol/L (21-32) L 09/21/19 06:33 Anion Gap 5 MMOL/L (8-16) L 09/21/19 06:33 BUN 43.6 mg/dL (7-18) H 09/21/19 06:33 Creatinine 1.6 mg/dL (0.55-1.3) H 09/21/19 06:33 Random Glucose 166 mg/dL (74-106) H 09/21/19 06:33 Calcium 7.8 mg/dL (8.5-10.1) L 09/21/19 06:33 Total Bilirubin 1.8 mg/dL (0.2-1) H 09/21/19 06:33 AST 29 U/L (15-37) 09/21/19 06:33 ALT 22 U/L (13-61) 09/21/19 06:33 Alkaline Phosphatase 107 U/L (45-117) 09/21/19 06:33 Total Protein 5.0 g/dl (6.4-8.2) L 09/21/19 06:33 Albumin 2.4 g/dl (3.4-5.0) L 09/21/19 06:33 CARDIAC ENZYMES Creatine Kinase 268 U/L (26-308) 09/13/19 12:45 Troponin I < 0.02 ng/ml (0.00-0.05) 09/13/19 12:45 Medical Decision Making 68 y/o M with hx of IDDM, HCV, cirrhosis, asthma presenting to the ED for altered mental status from the night prior to admission. per notes, the reported he has appeared more lethargic since evening prior and had to be woken up out of bed to take meds and eat. However he was able to be put to sleep without issues. She noted that he had a fall out of bed. The morning of admission, the patient didnt wake up and was somnolent. He also had emesis and per , reported abd pain. She also states that he hasnt had a BM in 3days despite lactulose. On arrival patient was vomiting and required suctioning. states patient had no fever, cough, SOB, chest pain, hematemesis, BPR, dysuria. CT head was completed and did not show acute changes. Of note, patient was admitted to [facility] last week for therapeutic paracentesis. Was noted to have sscleral icterus, slight jaundice. Most likely toxic metabolic encephalopathy. On labs, ammonia level normal but hemoglobin and hematocrit reduced and suspicious for anemia. Reviewed notes including from GI recommended Rifaximin aand lactulose, viral hepatitis panels as well as possible endoscopy. Also mention of positive blood cultures and ID consult. Patient with postive occult stool and inquired emergent management overnight. Patient currently in ICU, after rectal bleeding, coffee ground emesis noted, pt went for STAT EGD, received multiple blood transfusions and blood products. Remains intubated and on mechanical ventilation in ICU. Continued monitoring of H/H which has stabilized, GI note reviewed and mentioned continued octeotride. Surgery note reviewed and mentioned EGD may be considered for rebleed but if surgery needed may require tertiary care facility. Repeat EGD completed yesterday. Currently on antibiotics. Remains in ICU care on sedation and on mechanical ventilation, without purposeful movements. Continue GI and hematologic optimization. Monitor H and H, tranfuse as needed. Wean sedation, extubation as able. Continue to monitor mental status. Continue Abx as per primary. Critical care time 35 mins. (
[2019-09-21] MEDS ORDERED: DEXTROSE 5%-WATER - 50 ML IVPB ONE ×2 (09:42→09:43)
[2019-09-21] MEDS ORDERED: cefTRIAXone SODIUM 1 GM VIAL ONE ×2 (09:42→09:43)
[2019-09-21] MEDS: CEFTRIAXONE 1 GM in DEXTROSE 5%-WATER - 50 ML IVPB SCH (09:45)
[2019-09-21] MEDS: CHLORHEXIDINE GLUCONATE 0.12% 15ML CUP MM SCH ×2 (09:45→22:05)
--- NOTE | 2019-09-21 10:28 | PN ---
Progress Note, Physician Chief Complaint: Events noted Remains intubated and sedated History of Present Illness: Patient was seen and examined. Mechanical ventilation. Chart was reviewed - Current Medication List Current Medications: Active Medications Chlorhexidine Gluconate (Peridex -) 15 ml MM BID [facility] Last Admin: 09/21/19 09:45 Dose: 15 ml Octreotide Acetate 200 mcg/Octreotide Acetate 1,000 mcg/Dextrose 500 mls @ 20.833 mls/hr IVPB ASDIR REB[facility] Last Admin: 09/20/19 18:53 Dose: 20.833 mls/hr Propofol (Diprivan -) 1,000,000 mcg in 100 mls @ 2.198 mls/hr IVPB TITR [facility]; Protocol Last Admin: 09/21/19 06:20 Dose: 50 mcg/kg/min, 21.977 mls/hr Pantoprazole Sodium 80 mg/ (Sodium Chloride) 100 mls @ 10 mls/hr IVPB Q10H [facility] Last Admin: 09/21/19 02:26 Dose: 10 mls/hr Ceftriaxone Sodium 1 gm/ (Dextrose) 50 mls @ 100 mls/hr IVPB DAILY [facility]; Protocol Last Admin: 09/21/19 09:45 Dose: 100 mls/hr Insulin Aspart (Novolog Vial Sliding Scale -) 1 vial SQ ACHS [facility]; Protocol Last Admin: 09/21/19 06:20 Dose: 2 units Metoclopramide HCl (Reglan Injection -) 10 mg IVPUSH Q8H PRN PRN Reason: NAUSEA AND/OR VOMITING - Objective Vital Signs: Vital Signs Temperature 98.4 F 09/21/19 06:00 Pulse Rate 52 L 09/21/19 08:00 Respiratory Rate 14 09/21/19 08:40 Blood Pressure 110/48 L 09/21/19 08:00 O2 Sat by Pulse Oximetry (%) 98 09/21/19 08:54 Cardiovascular: Yes: Regular Rate and Rhythm, S1, S2 Respiratory: Yes: Diminished, Mechanically Ventilated Gastrointestinal: Yes: Normal Bowel Sounds, Soft. No: Tenderness Edema: No Labs: CBC, BMP 09/21/19 06:33 09/21/19 06:33 INR, PTT INR 1.25 (0.83-1.09) H 09/21/19 06:33 Fibrinogen 175.0 mg/dL (238-498) L 09/19/19 06:20 Problem List - Problems (1) Acute gastric ulcer with hemorrhage Code(s): K25.0 - ACUTE GASTRIC ULCER WITH HEMORRHAGE (2) Altered mental status Code(s): R41.82 - ALTERED MENTAL STATUS, UNSPECIFIED Qualifiers: Altered mental status type: unspecified Qualified Code(s): R41.82 - Altered mental status, unspecified (3) Anemia Code(s): D64.9 - ANEMIA, UNSPECIFIED (4) GI bleeding Code(s): K92.2 - GASTROINTESTINAL HEMORRHAGE, UNSPECIFIED (5) LBBB (left bundle branch block) Code(s): I44.7 - LEFT BUNDLE-BRANCH BLOCK, UNSPECIFIED (6) Hepatic encephalopathy Code(s): K72.90 - HEPATIC FAILURE, UNSPECIFIED WITHOUT COMA (7) CAD (coronary artery disease) Code(s): I25.10 - ATHSCL HEART DISEASE OF [place] CORONARY ARTERY W/O ANG PCTRS (8) Cirrhosis Code(s): K74.60 - UNSPECIFIED CIRRHOSIS OF LIVER Qualifiers: Hepatic cirrhosis type: unspecified hepatic cirrhosis Ascites presence: with ascites Qualified Code(s): K74.60 - Unspecified cirrhosis of liver; R18.8 - Other ascites (9) Hepatitis C Code(s): B19.20 - UNSPECIFIED VIRAL HEPATITIS C WITHOUT HEPATIC COMA Qualifiers: Viral hepatitis chronicity: chronic Hepatic coma status: without hepatic coma Qualified Code(s): B18.2 - Chronic viral hepatitis C (10) Hypertension Code(s): I10 - ESSENTIAL (PRIMARY) HYPERTENSION Qualifiers: Hypertension type: essential hypertension Qualified Code(s): I10 - Essential (primary) hypertension Assessment/Plan 1. Respiratory failure post intubation on mechanical ventilation 2. Anemia with GI bleed and gastric ulcer s/p clipping 3. Hepatic encephalopathy and cirrhosis 4. Hepatitis C 5. HTN 6. LBBB PLAN: 1. Vent management per Critical care team 2. Octreotide and Protonix gtt 3. Empiric antibiotics 4. Echocardiography reviewed 5. Continue supportive care Guarded Sandeep Yen MD
--- NOTE | 2019-09-21 11:24 | PN ---
Teaching Attending Note Name of Resident: Kj Robledo ATTENDING PHYSICIAN STATEMENT I saw and evaluated the patient. I reviewed the resident's note and discussed the case with the resident. I agree with the resident's findings and plan as documented. SUBJECTIVE: Patient seen and examined in the ICU. Remains intubated and sedated. No occult bleeding noted. EGD reports noted. Intake & Output 09/18/19 09/19/19 09/20/19 09/21/19 23:59 23:59 23:59 23:59 Intake Total 2242 459 2510.0 408.9 Output Total 731 090 2045 300 Balance 1642 -491 780.0 108.9 Weight 207 lb 1.6 oz 205 lb 207 lb 3.2 oz Last Vital Signs Temp Pulse Resp BP Pulse Ox 97.6 F 56 L 14 136/59 L 98 09/21/19 10:00 09/21/19 10:00 09/21/19 10:00 09/21/19 10:00 09/21/19 08:54 Active Medications Chlorhexidine Gluconate (Peridex -) 15 ml MM BID [facility] Last Admin: 09/21/19 09:45 Dose: 15 ml Octreotide Acetate 200 mcg/Octreotide Acetate 1,000 mcg/Dextrose 500 mls @ 20.833 mls/hr IVPB ASDIR [facility] Last Admin: 09/20/19 18:53 Dose: 20.833 mls/hr Propofol (Diprivan -) 1,000,000 mcg in 100 mls @ 2.198 mls/hr IVPB TITR [facility]; Protocol Last Admin: 09/21/19 06:20 Dose: 50 mcg/kg/min, 21.977 mls/hr Pantoprazole Sodium 80 mg/ (Sodium Chloride) 100 mls @ 10 mls/hr IVPB Q10H [facility] Last Admin: 09/21/19 02:26 Dose: 10 mls/hr Ceftriaxone Sodium 1 gm/ (Dextrose) 50 mls @ 100 mls/hr IVPB DAILY [facility]; Protocol Last Admin: 09/21/19 09:45 Dose: 100 mls/hr Insulin Aspart (Novolog Vial Sliding Scale -) 1 vial SQ ACHS [facility]; Protocol Last Admin: 09/21/19 06:20 Dose: 2 units Metoclopramide HCl (Reglan Injection -) 10 mg IVPUSH Q8H PRN PRN Reason: NAUSEA AND/OR VOMITING Gen: intubated, in NAD HEENT-PERRL, Sclera Icterus, orally intubated Resp: Vented, clear CV: Regular Rate and Rhythm, S1, S2 Abd: Soft, NT; hypoactive BS Ext: trace ble edema; + pulses Neuro: Sedated Laboratory Results - last 24 hr 09/16/19 09/17/19 09/20/19 06:15 12:10 11:56 WBC RBC Hgb Hct MCV MCH MCHC RDW Plt Count MPV Absolute Neuts (auto) Neutrophils % Lymphocytes % Monocytes % Eosinophils % Basophils % Nucleated RBC % PT with INR INR PTT (Actin FS) Puncture Site ABG pH ABG pCO2 at Pt Temp ABG pO2 at Pt Temp ABG HCO3 ABG O2 Sat (Measured) ABG O2 Content ABG Base Excess Hussein Test O2 Delivery Device Oxygen Flow Rate Vent Mode Vent Rate PEEP Pressure Support Vent Sodium Potassium Chloride Carbon Dioxide Anion Gap BUN Creatinine Est GFR (CKD-EPI)AfAm Est GFR (CKD-EPI)NonAf POC Glucometer 150 Random Glucose Calcium Phosphorus Magnesium Total Bilirubin AST ALT Alkaline Phosphatase Total Protein Albumin Ur Random Creatinine Ur Random Sodium Ur Random Potassium Ur Random Chloride HCV Quantitation Hcv not detected HCV RNA log copies/mL TNP Blood Type A POSITIVE Antibody Screen Negative Crossmatch See Detail 09/20/19 09/20/19 09/20/19 12:30 12:30 16:34 WBC RBC Hgb Hct MCV MCH MCHC RDW Plt Count MPV Absolute Neuts (auto) Neutrophils % Lymphocytes % Monocytes % Eosinophils % Basophils % Nucleated RBC % PT with INR INR PTT (Actin FS) Puncture Site ABG pH ABG pCO2 at Pt Temp ABG pO2 at Pt Temp ABG HCO3 ABG O2 Sat (Measured) ABG O2 Content ABG Base Excess Hussein Test O2 Delivery Device Oxygen Flow Rate Vent Mode Vent Rate PEEP Pressure Support Vent Sodium Potassium Chloride Carbon Dioxide Anion Gap BUN Creatinine Est GFR (CKD-EPI)AfAm Est GFR (CKD-EPI)NonAf POC Glucometer 144 Random Glucose Calcium Phosphorus Magnesium Total Bilirubin AST ALT Alkaline Phosphatase Total Protein Albumin Ur Random Creatinine 100.0 Ur Random Sodium 12 L Ur Random Potassium 24.0 L Ur Random Chloride < 11 L HCV Quantitation HCV RNA log copies/mL Blood Type Antibody Screen Crossmatch 11/18/19 11/19/19 11/19/19 22:08 05:31 06:00 WBC RBC Hgb Hct MCV MCH MCHC RDW Plt Count MPV Absolute Neuts (auto) Neutrophils % Lymphocytes % Monocytes % Eosinophils % Basophils % Nucleated RBC % PT with INR INR PTT (Actin FS) Puncture Site Left radial ABG pH 7.37 ABG pCO2 at Pt Temp 32.4 L ABG pO2 at Pt Temp 84.2 ABG HCO3 18.2 L ABG O2 Sat (Measured) 96.6 ABG O2 Content 13.0 ABG Base Excess -5.8 L Hussein Test Positive O2 Delivery Device Vent Oxygen Flow Rate 40% Vent Mode A/c Vent Rate 12 PEEP 5.0 Pressure Support Vent 500 Sodium Potassium Chloride Carbon Dioxide Anion Gap BUN Creatinine Est GFR (CKD-EPI)AfAm Est GFR (CKD-EPI)NonAf POC Glucometer 155 160 Random Glucose Calcium Phosphorus Magnesium Total Bilirubin AST ALT Alkaline Phosphatase Total Protein Albumin Ur Random Creatinine Ur Random Sodium Ur Random Potassium Ur Random Chloride HCV Quantitation HCV RNA log copies/mL Blood Type Antibody Screen Crossmatch 09/21/19 09/21/19 09/21/19 06:33 06:33 06:33 WBC 4.4 RBC 3.16 L Hgb 9.5 L Hct 28.1 L MCV 88.6 MCH 29.9 MCHC 33.8 RDW 17.8 H Plt Count 54 L MPV 9.3 Absolute Neuts (auto) 3.3 Neutrophils % 75.6 Lymphocytes % 12.7 Monocytes % 6.9 Eosinophils % 3.9 Basophils % 0.9 Nucleated RBC % 0 PT with INR 14.80 H INR 1.25 H PTT (Actin FS) 33.7 Puncture Site ABG pH ABG pCO2 at Pt Temp ABG pO2 at Pt Temp ABG HCO3 ABG O2 Sat (Measured) ABG O2 Content ABG Base Excess Hussein Test O2 Delivery Device Oxygen Flow Rate Vent Mode Vent Rate PEEP Pressure Support Vent Sodium 141 Potassium 4.2 Chloride 117 H Carbon Dioxide 19 L Anion Gap 5 L BUN 43.6 H Creatinine 1.6 H Est GFR (CKD-EPI)AfAm 49.85 Est GFR (CKD-EPI)NonAf 43.01 POC Glucometer Random Glucose 166 H Calcium 7.8 L Phosphorus 3.0 Magnesium 2.1 Total Bilirubin 1.8 H AST 29 ALT 22 Alkaline Phosphatase 107 Total Protein 5.0 L Albumin 2.4 L Ur Random Creatinine Ur Random Sodium Ur Random Potassium Ur Random Chloride HCV Quantitation HCV RNA log copies/mL Blood Type Antibody Screen Crossmatch Problem List - Problems (1) Respiratory failure Code(s): J96.90 - RESPIRATORY FAILURE, UNSP, UNSP W HYPOXIA OR HYPERCAPNIA (2) Hemorrhagic shock Code(s): R57.8 - OTHER SHOCK (3) GI bleeding Code(s): K92.2 - GASTROINTESTINAL HEMORRHAGE, UNSPECIFIED (4) Cirrhosis Code(s): K74.60 - UNSPECIFIED CIRRHOSIS OF LIVER Qualifiers: (5) Hepatitis C Code(s): B19.20 - UNSPECIFIED VIRAL HEPATITIS C WITHOUT HEPATIC COMA Qualifiers: Assessment/Plan Wean trials as tolerated Mechanical VTE prophylaxis PPI and octreotide drips Serial CBC Trend LFTs PLT for goal >50 ABX per ID NGT to LWS Requires ICU monitoring Dr Rodriguez Critical care time spent in reviewing chart, evaluating patient and formulating plan - 36 minutes.
[2019-09-21] MEDS: OCTREOTIDE ACETATE 200 MCG, OCTREOTIDE ACETATE 1,000 MCG in DEXTROSE 5%-WATER - 496 ML IVPB SCH (12:34)
--- NOTE | 2019-09-21 12:37 | PN ---
Physical Exam: SUBJECTIVE: Patient seen and examined by the bedside, sedated and intubated, unresponsive. OBJECTIVE: Vital Signs Period Temp Pulse Resp BP Sys/Shen Pulse Ox Last 24 Hr 97.2 F-98.4 F 52-78 12-18 107-151/47-61 98-100 GENERAL: Intubated and sedated, unresponsive LUNGS: Transmitted breath sounds B/L, no wheezes or crackles HEART: RRR, no murmurs ABDOMEN: Soft, distended, no tenderness LOWER EXTREMITIES: 2+ pitting edema NEUROLOGICAL: Sedated Laboratory Results - last 24 hr 09/16/19 09/17/19 09/20/19 06:15 12:10 12:30 WBC RBC Hgb Hct MCV MCH MCHC RDW Plt Count MPV Absolute Neuts (auto) Neutrophils % Lymphocytes % Monocytes % Eosinophils % Basophils % Nucleated RBC % PT with INR INR PTT (Actin FS) Puncture Site ABG pH ABG pCO2 at Pt Temp ABG pO2 at Pt Temp ABG HCO3 ABG O2 Sat (Measured) ABG O2 Content ABG Base Excess Hussein Test O2 Delivery Device Oxygen Flow Rate Vent Mode Vent Rate PEEP Pressure Support Vent Sodium Potassium Chloride Carbon Dioxide Anion Gap BUN Creatinine Est GFR (CKD-EPI)AfAm Est GFR (CKD-EPI)NonAf POC Glucometer Random Glucose Calcium Phosphorus Magnesium Total Bilirubin AST ALT Alkaline Phosphatase Total Protein Albumin Ur Random Creatinine Ur Random Sodium 12 L Ur Random Potassium 24.0 L Ur Random Chloride < 11 L HCV Quantitation Hcv not detected HCV RNA log copies/mL TNP Blood Type A POSITIVE Antibody Screen Negative Crossmatch See Detail 09/20/19 09/20/19 09/20/19 12:30 16:34 22:08 WBC RBC Hgb Hct MCV MCH MCHC RDW Plt Count MPV Absolute Neuts (auto) Neutrophils % Lymphocytes % Monocytes % Eosinophils % Basophils % Nucleated RBC % PT with INR INR PTT (Actin FS) Puncture Site ABG pH ABG pCO2 at Pt Temp ABG pO2 at Pt Temp ABG HCO3 ABG O2 Sat (Measured) ABG O2 Content ABG Base Excess Hussein Test O2 Delivery Device Oxygen Flow Rate Vent Mode Vent Rate PEEP Pressure Support Vent Sodium Potassium Chloride Carbon Dioxide Anion Gap BUN Creatinine Est GFR (CKD-EPI)AfAm Est GFR (CKD-EPI)NonAf POC Glucometer 144 155 Random Glucose Calcium Phosphorus Magnesium Total Bilirubin AST ALT Alkaline Phosphatase Total Protein Albumin Ur Random Creatinine 100.0 Ur Random Sodium Ur Random Potassium Ur Random Chloride HCV Quantitation HCV RNA log copies/mL Blood Type Antibody Screen Crossmatch 09/21/19 09/21/19 09/21/19 05:31 06:00 06:33 WBC RBC Hgb Hct MCV MCH MCHC RDW Plt Count MPV Absolute Neuts (auto) Neutrophils % Lymphocytes % Monocytes % Eosinophils % Basophils % Nucleated RBC % PT with INR 14.80 H INR 1.25 H PTT (Actin FS) 33.7 Puncture Site Left radial ABG pH 7.37 ABG pCO2 at Pt Temp 32.4 L ABG pO2 at Pt Temp 84.2 ABG HCO3 18.2 L ABG O2 Sat (Measured) 96.6 ABG O2 Content 13.0 ABG Base Excess -5.8 L Hussein Test Positive O2 Delivery Device Vent Oxygen Flow Rate 40% Vent Mode A/c Vent Rate 12 PEEP 5.0 Pressure Support Vent 500 Sodium Potassium Chloride Carbon Dioxide Anion Gap BUN Creatinine Est GFR (CKD-EPI)AfAm Est GFR (CKD-EPI)NonAf POC Glucometer 160 Random Glucose Calcium Phosphorus Magnesium Total Bilirubin AST ALT Alkaline Phosphatase Total Protein Albumin Ur Random Creatinine Ur Random Sodium Ur Random Potassium Ur Random Chloride HCV Quantitation HCV RNA log copies/mL Blood Type Antibody Screen Crossmatch 09/21/19 09/21/19 09/21/19 06:33 06:33 12:21 WBC 4.4 RBC 3.16 L Hgb 9.5 L Hct 28.1 L MCV 88.6 MCH 29.9 MCHC 33.8 RDW 17.8 H Plt Count 54 L MPV 9.3 Absolute Neuts (auto) 3.3 Neutrophils % 75.6 Lymphocytes % 12.7 Monocytes % 6.9 Eosinophils % 3.9 Basophils % 0.9 Nucleated RBC % 0 PT with INR INR PTT (Actin FS) Puncture Site ABG pH ABG pCO2 at Pt Temp ABG pO2 at Pt Temp ABG HCO3 ABG O2 Sat (Measured) ABG O2 Content ABG Base Excess Hussein Test O2 Delivery Device Oxygen Flow Rate Vent Mode Vent Rate PEEP Pressure Support Vent Sodium 141 Potassium 4.2 Chloride 117 H Carbon Dioxide 19 L Anion Gap 5 L BUN 43.6 H Creatinine 1.6 H Est GFR (CKD-EPI)AfAm 49.85 Est GFR (CKD-EPI)NonAf 43.01 POC Glucometer 135 Random Glucose 166 H Calcium 7.8 L Phosphorus 3.0 Magnesium 2.1 Total Bilirubin 1.8 H AST 29 ALT 22 Alkaline Phosphatase 107 Total Protein 5.0 L Albumin 2.4 L Ur Random Creatinine Ur Random Sodium Ur Random Potassium Ur Random Chloride HCV Quantitation HCV RNA log copies/mL Blood Type Antibody Screen Crossmatch Active Medications Generic Name Dose Route Start Last Admin Trade Name Freq PRN Reason Stop Dose Admin Chlorhexidine Gluconate 15 ml 09/21/19 10:00 09/21/19 09:45 Peridex - MM 15 ml BID [facility]EL Administration Octreotide Acetate 200 mcg/ 500 mls @ 20.833 mls/hr 09/17/19 12:00 09/20/19 18:53 Octreotide Acetate 1,000 mcg/ IVPB 20.833 mls/hr Dextrose ASDIR REBEL Administration Propofol 1,000,000 mcg in 100 mls @ 2.198 mls/hr 09/17/19 18:15 09/21/19 06: 20 Diprivan - IVPB 50 mcg/kg/min TITR RE[facility]EL 21.977 mls/hr Administration Protocol 5 MCG/KG/MIN Pantoprazole Sodium 80 mg/ 100 mls @ 10 mls/hr 09/17/19 18:15 09/21/19 02:26 Sodium Chloride IVPB 10 mls/hr Q10H REBEL Administration 8 MG/HR Ceftriaxone Sodium 1 gm/ 50 mls @ 100 mls/hr 09/18/19 10:00 09/21/19 09:45 Dextrose IVPB 100 mls/hr DAILY RE[facility]EL Administration Protocol Insulin Aspart 1 vial 09/17/19 16:30 09/21/19 06:20 Novolog Vial Sliding Scale - SQ 2 units ACHS REBEL Administration Protocol Metoclopramide HCl 10 mg 09/20/19 15:59 Reglan Injection - IVPUSH Q8H PRN NAUSEA AND/OR VOMITING ASSESSMENT/PLAN: 68 year old male with PMH of IDDM1, HCV, cirrhosis, asthma originally presented 09/13 for altered mental status and jaundice 2/2 toxic metabolic encephalopathy. 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 were cauterized to achieve hemostasis - s/p EGD 09/17 with clipping, injection and cautery of gastric antral bleeding ulcer, intubated and sedated in ICU - EGD 11/30/18: No varices, stomach with moderate portal hypertensive gastropathy w/o varices, one small non-bleeding duodenal ulcer - Octreotide and Protonix drip - Holding lactulose, rifaximin due to gastric bleeding #Heme - 2FFP + 1Plt after EGD - H&H 9.5/.1 - Plt 48 -> 54 #Cardio - Holding heparin d/t bleeding - QTc 506m, avoid QT prolonging medication #Pulm - Intubated, sedation temporarily stopped #Endo - hx IDDM, on Novolog SS #Renal - [place], Cr 1.7 -> 1.6, low FeNA suggestive of pre-renal disease - Renal US: Limited study with no evidence of hydronephrosis, bladder not identified, may be empty - Renal recs: Lasix PRN - Myers, monitor I/O #ID - Afebrile, WBC 5.1 -> 4.4 - Started Ceftriaxone day 4 for variceal ppx #FEN - NPO #PPX - SCDs #Dispo - Continue to monitor in ICU ATTENDING PHYSICIAN STATEMENT I saw and evaluated the patient. I reviewed the resident's note and discussed the case with the resident. I agree with the resident's findings and plan as documented. SUBJECTIVE: OBJECTIVE: ASSESSMENT AND PLAN:
--- NOTE | 2019-09-21 17:38 | PN ---
Progress Note, Physician History of Present Illness: Pt seen and examined at bedside. He remain in the ICU. He remains intubated. - Current Medication List Current Medications: Active Medications Chlorhexidine Gluconate (Peridex -) 15 ml MM BID [facility] Last Admin: 09/21/19 09:45 Dose: 15 ml Octreotide Acetate 200 mcg/Octreotide Acetate 1,000 mcg/Dextrose 500 mls @ 20.833 mls/hr IVPB ASDIR [facility] Last Admin: 09/21/19 12:34 Dose: 20.833 mls/hr Propofol (Diprivan -) 1,000,000 mcg in 100 mls @ 2.198 mls/hr IVPB TITR [facility]; Protocol Last Titration: 09/21/19 14:55 Dose: 25 mcg/kg/min, 10.988 mls/hr Pantoprazole Sodium 80 mg/ (Sodium Chloride) 100 mls @ 10 mls/hr IVPB Q10H [facility] Last Admin: 09/21/19 12:34 Dose: 10 mls/hr Ceftriaxone Sodium 1 gm/ (Dextrose) 50 mls @ 100 mls/hr IVPB DAILY [facility]; Protocol Last Admin: 09/21/19 09:45 Dose: 100 mls/hr Insulin Aspart (Novolog Vial Sliding Scale -) 1 vial SQ ACHS [facility]; Protocol Last Admin: 09/21/19 17:01 Dose: 2 units Metoclopramide HCl (Reglan Injection -) 10 mg IVPUSH Q8H PRN PRN Reason: NAUSEA AND/OR VOMITING - Objective Vital Signs: Vital Signs Temperature 97.6 F 09/21/19 14:00 Pulse Rate 65 09/21/19 16:00 Respiratory Rate 13 09/21/19 16:02 Blood Pressure 135/60 09/21/19 16:00 O2 Sat by Pulse Oximetry (%) 100 09/21/19 10:00 Constitutional: Yes: Calm Eyes: Yes: Conjunctiva Clear HENT: Yes: Atraumatic Neck: Yes: Supple Cardiovascular: Yes: S1, S2 Respiratory: Yes: Intubated, Mechanically Ventilated Gastrointestinal: Yes: Soft Genitourinary: Yes: Myers Present Musculoskeletal: Yes: Muscle Weakness Edema: Yes Edema: LUE: 2+, RUE: 2+, LLE: 1+, RLE: 1+ Neurological: Yes: Lethargy Labs: CBC, BMP 09/21/19 06:33 09/21/19 06:33 INR, PTT INR 1.25 (0.83-1.09) H 09/21/19 06:33 Fibrinogen 175.0 mg/dL (238-498) L 09/19/19 06:20 - ....Imaging Ultrasound: Report Reviewed Assessment/Plan Current Medications Generic Name Dose Route Start Last Admin Trade Name Freq PRN Reason Stop Dose Admin Chlorhexidine Gluconate 15 ml 09/21/19 10:00 09/21/19 09:45 Peridex - MM 15 ml BID [facility] Administration Octreotide Acetate 200 mcg/ 500 mls @ 20.833 mls/hr 09/17/19 12:00 09/21/19 12:34 Octreotide Acetate 1,000 mcg/ IVPB 20.833 mls/hr Dextrose ASDIR RE[facility]EL Administration Propofol 1,000,000 mcg in 100 mls @ 2.198 mls/hr 09/17/19 18:15 09/21/19 14: 55 Diprivan - IVPB 25 mcg/kg/min TITR RE[facility]EL 10.988 mls/hr Titration Protocol 5 MCG/KG/MIN Pantoprazole Sodium 80 mg/ 100 mls @ 10 mls/hr 09/17/19 18:15 09/21/19 12:34 Sodium Chloride IVPB 10 mls/hr Q10H RE[facility]EL Administration 8 MG/HR Ceftriaxone Sodium 1 gm/ 50 mls @ 100 mls/hr 09/18/19 10:00 09/21/19 09:45 Dextrose IVPB 100 mls/hr DAILY RE[facility] Administration Protocol Insulin Aspart 1 vial 09/17/19 16:30 09/21/19 17:01 Novolog Vial Sliding Scale - SQ 2 units ACHS RE[facility]EL Administration Protocol Metoclopramide HCl 10 mg 09/20/19 15:59 Reglan Injection - IVPUSH Q8H PRN NAUSEA AND/OR VOMITING IMpression 1. LAKEISHA 2. dm 3. gi bleed 4. resp failure 5. hep c 6. liver cirrhosos Plan - vent support - monitor mis specialist - can give lasix as needed - monitor volume status - weaning per ICU team - monitor urine output
--- NOTE | 2019-09-21 19:15 | PN ---
Progress Note, Physician History of Present Illness: intubated and sedated - Current Medication List Current Medications: Active Medications Chlorhexidine Gluconate (Peridex -) 15 ml MM BID [facility] Last Admin: 09/21/19 09:45 Dose: 15 ml Octreotide Acetate 200 mcg/Octreotide Acetate 1,000 mcg/Dextrose 500 mls @ 20.833 mls/hr IVPB ASDIR [facility] Last Admin: 09/21/19 12:34 Dose: 20.833 mls/hr Propofol (Diprivan -) 1,000,000 mcg in 100 mls @ 2.198 mls/hr IVPB TITR REB[facility]; Protocol Last Titration: 09/21/19 14:55 Dose: 25 mcg/kg/min, 10.988 mls/hr Pantoprazole Sodium 80 mg/ (Sodium Chloride) 100 mls @ 10 mls/hr IVPB Q10H [facility] Last Admin: 09/21/19 12:34 Dose: 10 mls/hr Ceftriaxone Sodium 1 gm/ (Dextrose) 50 mls @ 100 mls/hr IVPB DAILY [facility]; Protocol Last Admin: 09/21/19 09:45 Dose: 100 mls/hr Insulin Aspart (Novolog Vial Sliding Scale -) 1 vial SQ ACHS [facility]; Protocol Last Admin: 09/21/19 17:01 Dose: 2 units Metoclopramide HCl (Reglan Injection -) 10 mg IVPUSH Q8H PRN PRN Reason: NAUSEA AND/OR VOMITING - Objective Vital Signs: Vital Signs Temperature 97.7 F 09/21/19 18:00 Pulse Rate 63 09/21/19 18:00 Respiratory Rate 14 09/21/19 18:00 Blood Pressure 130/59 L 09/21/19 18:00 O2 Sat by Pulse Oximetry (%) 100 09/21/19 10:00 HENT: Yes: Atraumatic Neck: Yes: Supple Cardiovascular: Yes: Regular Rate and Rhythm Respiratory: Yes: CTA Bilaterally Gastrointestinal: Yes: Normal Bowel Sounds Extremities: Yes: WNL Neurological: Yes: Alert, Oriented Labs: CBC, BMP 09/21/19 06:33 09/21/19 06:33 INR, PTT INR 1.25 (0.83-1.09) H 09/21/19 06:33 Fibrinogen 175.0 mg/dL (238-498) L 09/19/19 06:20 Problem List - Problems (1) Altered mental status Assessment/Plan: intubated sedated Code(s): R41.82 - ALTERED MENTAL STATUS, UNSPECIFIED Qualifiers: Altered mental status type: unspecified Qualified Code(s): R41.82 - Altered mental status, unspecified (2) Aphasia Code(s): R47.01 - APHASIA (3) Hepatic encephalopathy Assessment/Plan: intubated Code(s): K72.90 - HEPATIC FAILURE, UNSPECIFIED WITHOUT COMA (4) Cirrhosis Code(s): K74.60 - UNSPECIFIED CIRRHOSIS OF LIVER Qualifiers: Hepatic cirrhosis type: unspecified hepatic cirrhosis Ascites presence: with ascites Qualified Code(s): K74.60 - Unspecified cirrhosis of liver; R18.8 - Other ascites (5) Hepatitis C Code(s): B19.20 - UNSPECIFIED VIRAL HEPATITIS C WITHOUT HEPATIC COMA Qualifiers: Viral hepatitis chronicity: chronic Hepatic coma status: without hepatic coma Qualified Code(s): B18.2 - Chronic viral hepatitis C (6) Hypertension Code(s): I10 - ESSENTIAL (PRIMARY) HYPERTENSION Qualifiers: Hypertension type: essential hypertension Qualified Code(s): I10 - Essential (primary) hypertension (7) Anemia Code(s): D64.9 - ANEMIA, UNSPECIFIED (8) Bacteremia Assessment/Plan: d/w id no need for abx 1 bottle is positive which could be contamination Code(s): R78.81 - BACTEREMIA (9) GI bleeding Assessment/Plan: follow up h/h transfuse prbc...2 units gi follow up Code(s): K92.2 - GASTROINTESTINAL HEMORRHAGE, UNSPECIFIED (10) Acute gastric ulcer with hemorrhage Code(s): K25.0 - ACUTE GASTRIC ULCER WITH HEMORRHAGE
[2019-09-22] MEDS: INSULIN SLIDING SCALE (NOVOLOG) 1 VIAL SQ SCH ×3 (06:09→17:09)
--- NOTE | 2019-09-22 08:13 | PN ---
Physical Exam: SUBJECTIVE: Patient seen and examined by the bedside, intubated and sedated. OBJECTIVE: Vital Signs Period Temp Pulse Resp BP Sys/Shen Pulse Ox Last 24 Hr 97.6 F-98.6 F 56-87 12-18 127-157/53-64 98-100 GENERAL: Intubated and sedated, unresponsive LUNGS: Transmitted breath sounds B/L, no wheezes or crackles HEART: RRR, no murmurs ABDOMEN: Soft, distended, no tenderness LOWER EXTREMITIES: 2+ pitting edema NEUROLOGICAL: Sedated Laboratory Results - last 24 hr 09/21/19 09/21/19 09/21/19 06:33 06:33 06:33 WBC 4.4 RBC 3.16 L Hgb 9.5 L Hct 28.1 L MCV 88.6 MCH 29.9 MCHC 33.8 RDW 17.8 H Plt Count 54 L MPV 9.3 Absolute Neuts (auto) 3.3 Neutrophils % 75.6 Lymphocytes % 12.7 Monocytes % 6.9 Eosinophils % 3.9 Basophils % 0.9 Nucleated RBC % 0 PT with INR 14.80 H INR 1.25 H PTT (Actin FS) 33.7 Sodium 141 Potassium 4.2 Chloride 117 H Carbon Dioxide 19 L Anion Gap 5 L BUN 43.6 H Creatinine 1.6 H Est GFR (CKD-EPI)AfAm 49.85 Est GFR (CKD-EPI)NonAf 43.01 POC Glucometer Random Glucose 166 H Calcium 7.8 L Phosphorus 3.0 Magnesium 2.1 Total Bilirubin 1.8 H AST 29 ALT 22 Alkaline Phosphatase 107 Total Protein 5.0 L Albumin 2.4 L 09/21/19 09/21/19 09/21/19 12:21 16:59 21:52 WBC RBC Hgb Hct MCV MCH MCHC RDW Plt Count MPV Absolute Neuts (auto) Neutrophils % Lymphocytes % Monocytes % Eosinophils % Basophils % Nucleated RBC % PT with INR INR PTT (Actin FS) Sodium Potassium Chloride Carbon Dioxide Anion Gap BUN Creatinine Est GFR (CKD-EPI)AfAm Est GFR (CKD-EPI)NonAf POC Glucometer 135 163 131 Random Glucose Calcium Phosphorus Magnesium Total Bilirubin AST ALT Alkaline Phosphatase Total Protein Albumin 09/22/19 05:38 WBC RBC Hgb Hct MCV MCH MCHC RDW Plt Count MPV Absolute Neuts (auto) Neutrophils % Lymphocytes % Monocytes % Eosinophils % Basophils % Nucleated RBC % PT with INR INR PTT (Actin FS) Sodium Potassium Chloride Carbon Dioxide Anion Gap BUN Creatinine Est GFR (CKD-EPI)AfAm Est GFR (CKD-EPI)NonAf POC Glucometer 150 Random Glucose Calcium Phosphorus Magnesium Total Bilirubin AST ALT Alkaline Phosphatase Total Protein Albumin Active Medications Generic Name Dose Route Start Last Admin Trade Name Freq PRN Reason Stop Dose Admin Chlorhexidine Gluconate 15 ml 09/21/19 10:00 09/21/19 22:05 Peridex - MM 15 ml BID REBEL Administration Octreotide Acetate 200 mcg/ 500 mls @ 20.833 mls/hr 09/17/19 12:00 09/21/19 12:34 Octreotide Acetate 1,000 mcg/ IVPB 20.833 mls/hr Dextrose ASDIR REBEL Administration Propofol 1,000,000 mcg in 100 mls @ 2.198 mls/hr 09/17/19 18:15 09/22/19 03: 45 Diprivan - IVPB 0 mcg/kg/min TITR REBEL 0 mls/hr Titration Protocol 5 MCG/KG/MIN Pantoprazole Sodium 80 mg/ 100 mls @ 10 mls/hr 09/17/19 18:15 09/21/19 23:02 Sodium Chloride IVPB 10 mls/hr Q10H REBEL Administration 8 MG/HR Ceftriaxone Sodium 1 gm/ 50 mls @ 100 mls/hr 09/18/19 10:00 09/21/19 09:45 Dextrose IVPB 100 mls/hr DAILY REBEL Administration Protocol Insulin Aspart 1 vial 09/17/19 16:30 09/22/19 06:09 Novolog Vial Sliding Scale - SQ Not Given ACHS REBEL Protocol Metoclopramide HCl 10 mg 09/20/19 15:59 Reglan Injection - IVPUSH Q8H PRN NAUSEA AND/OR VOMITING ASSESSMENT/PLAN: 68 year old male with PMH of DM, HCV, cirrhosis, asthma originally presented for altered mental status and jaundice 2/2 toxic metabolic encephalopathy. On 09/17 pt had coffee ground emesis and rectal bleeding, stat EGD was performed and he was intubated and transfered to the ICU. 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 to achieve hemostasis - EGD 09/17: clipping/cautery of gastric antral bleeding ulcer, EGD Nov 21: No varices, mod gastropathy w/o varices, 1 small non-bleeding duodenal ulcer #Heme - 2FFP + 1Plt after EGD on 09/17 - H&H 9.5/28.1 -> 11.3/33.6 - Plt 48 -> 54 -> 71 #Cardio - Cardio recs: Continue Octreotide for another 24 hours - Holding heparin d/t bleeding - QTc 506m, avoid QT prolonging medication #Pulm - Intubated, sedation temporarily stopped #Endo - hx IDDM, on Novolog SS #Renal - LAKEISHA, Cr 1.7 -> 1.6 -> 1.5, low FeNA suggestive of pre-renal disease - Lasix 40mg IV 1x given due to increasing peripheral edema, urine output improved afterwards - Renal US 09/20: Limited study with no evidence of hydronephrosis, bladder not identified, may be empty - Renal recs: Lasix PRN - Myers, monitor I/O #ID - Afebrile, WBC 4.4 -> 7.5 - Started Ceftriaxone day 6 for variceal ppx #FEN - NPO #PPX - SCDs #Dispo - Continue to monitor in ICU ATTENDING PHYSICIAN STATEMENT I saw and evaluated the patient. I reviewed the resident's note and discussed the case with the resident. I agree with the resident's findings and plan as documented. SUBJECTIVE: OBJECTIVE: ASSESSMENT AND PLAN:
[2019-09-22] MEDS: PANTOPRAZOLE SODIUM 80 MG in SODIUM CHLORIDE 100 ML IVPB SCH ×2 (09:08→18:27)
--- NOTE | 2019-09-22 09:08 | PN ---
Progress Note (short form) - Note Progress Note: Neurology Chief Complaint: Altered Mental Status HPI: 68 y/o M with hx of IDDM, HCV, cirrhosis, asthma presenting to the ED for altered mental status from the night prior to admission. per notes, the reported he has appeared more lethargic since evening prior and had to be woken up out of bed to take meds and eat. However he was able to be put to sleep without issues. She noted that he had a fall out of bed. The morning of admission, the patient didnt wake up and was somnolent. He also had emesis and per , reported abd pain. She also states that he hasnt had a BM in 3days despite lactulose. On arrival patient was vomiting and required suctioning. states patient had no fever, cough, SOB, chest pain, hematemesis, BPR, dysuria. CT head was completed and did not show acute changes. Of note, patient was admitted to [facility] last week for therapeutic paracentesis. Was noted to have sscleral icterus, slight jaundice. Most likely toxic metabolic encephalopathy. On labs, ammonia level normal but hemoglobin and hematocrit reduced and suspicious for anemia.GI recommended Rifaximin aand lactulose, viral hepatitis panels as well as possible endoscopy. Also mention of positive blood cultures and ID consult. Patient with postive occult stool and inquired emergent management overnight. Patient currently in ICU, after rectal bleeding, coffee ground emesis noted, pt went for STAT EGD, received multiple blood transfusions and blood products. Remains intubated and on mechanical ventilation in ICU. Continued monitoring of H/H which has stabilized, GI note reviewed and mentioned continued octeotride. Surgery note reviewed and mentioned EGD may be considered for rebleed but if surgery needed may require tertiary care facility. Currently on antibiotics, Ceftriaxone. Remains in ICU care on sedation and on mechanical ventilation, without purposeful movements. Discussed with nurse, attempt to wean sedation and eventual extubation when able. Neurologically without significant improvement since being put on mechanical ventilation. Active Medications Chlorhexidine Gluconate (Peridex -) 15 ml MM BID [facility] Last Admin: 09/21/19 22:05 Dose: 15 ml Octreotide Acetate 200 mcg/Octreotide Acetate 1,000 mcg/Dextrose 500 mls @ 20.833 mls/hr IVPB ASDIR [facility] Last Admin: 09/21/19 12:34 Dose: 20.833 mls/hr Propofol (Diprivan -) 1,000,000 mcg in 100 mls @ 2.198 mls/hr IVPB TITR REBEL; Protocol Last Titration: 09/22/19 03:45 Dose: 0 mcg/kg/min, 0 mls/hr Pantoprazole Sodium 80 mg/ (Sodium Chloride) 100 mls @ 10 mls/hr IVPB Q10H [facility]EL Last Admin: 09/21/19 23:02 Dose: 10 mls/hr Ceftriaxone Sodium 1 gm/ (Dextrose) 50 mls @ 100 mls/hr IVPB DAILY [facility]; Protocol Last Admin: 09/21/19 09:45 Dose: 100 mls/hr Insulin Aspart (Novolog Vial Sliding Scale -) 1 vial SQ ACHS REBEL; Protocol Last Admin: 09/22/19 06:09 Dose: Not Given Metoclopramide HCl (Reglan Injection -) 10 mg IVPUSH Q8H PRN PRN Reason: NAUSEA AND/OR VOMITING *Physical Exam Vital Signs Period Temp Pulse Resp BP Sys/Shen Pulse Ox Last 24 Hr 97.6 F-98.6 F 56-87 12-18 127-157/53-64 100-100 GENERAL: sedated and on ventilation HEAD: No signs of trauma, normocephalic, atraumatic EYES: EOMI, scleral icterus, conjunctiva clear ENT: Auricles normal inspection, hearing grossly normal, nares patent, oropharynx clear without exudates. Moist mucosa NECK: Normal ROM, no lymphadenopathy LUNGS: No increased work of breathing, symmetrical chest rise, clear to auscultation bilaterally, no wheezes, crackles or rhonchi HEART: Regular rate and rhythm, normal S1 and S2, no murmurs, peripheral pulses 2+ and equal bilaterally. ABDOMEN: Soft, nondistended, nontender, normoactive bowel sounds. No guarding, no rebound. No masses. No CVAT EXTREMITIES: Normal inspection, Normal range of motion, no edema. No clubbing or cyanosis. NEUROLOGICAL: sedated and on mechanical vent, moves extremities to pain, not following commands, no abnormal movements SKIN: jaundice CBCD WBC 4.4 K/mm3 (4.0-10.0) 09/21/19 06:33 RBC 3.16 M/mm3 (4.00-5.60) L 09/21/19 06:33 Hgb 9.5 GM/dL (11.7-16.9) L 09/21/19 06:33 Hct 28.1 % (35.4-49) L 09/21/19 06:33 MCV 88.6 fl (80-96) 09/21/19 06:33 MCHC 33.8 g/dl (32.0-35.9) 09/21/19 06:33 RDW 17.8 % (11.9-15.9) H 09/21/19 06:33 Plt Count 54 K/MM3 (134-434) L 09/21/19 06:33 MPV 9.3 fl (7.5-11.1) 09/21/19 06:33 CMP Sodium 141 mmol/L (136-145) 09/21/19 06:33 Potassium 4.2 mmol/L (3.5-5.1) 09/21/19 06:33 Chloride 117 mmol/L (98-107) H 09/21/19 06:33 Carbon Dioxide 19 mmol/L (21-32) L 09/21/19 06:33 Anion Gap 5 MMOL/L (8-16) L 09/21/19 06:33 BUN 43.6 mg/dL (7-18) H 09/21/19 06:33 Creatinine 1.6 mg/dL (0.55-1.3) H 09/21/19 06:33 Random Glucose 166 mg/dL (74-106) H 09/21/19 06:33 Calcium 7.8 mg/dL (8.5-10.1) L 09/21/19 06:33 Total Bilirubin 1.8 mg/dL (0.2-1) H 09/21/19 06:33 AST 29 U/L (15-37) 09/21/19 06:33 ALT 22 U/L (13-61) 09/21/19 06:33 Alkaline Phosphatase 107 U/L (45-117) 09/21/19 06:33 Total Protein 5.0 g/dl (6.4-8.2) L 09/21/19 06:33 Albumin 2.4 g/dl (3.4-5.0) L 09/21/19 06:33 CARDIAC ENZYMES Creatine Kinase 268 U/L (26-308) 09/13/19 12:45 Troponin I < 0.02 ng/ml (0.00-0.05) 09/13/19 12:45 Medical Decision Making 68 y/o M with hx of IDDM, HCV, cirrhosis, asthma presenting to the ED for altered mental status from the night prior to admission. per notes, the reported he has appeared more lethargic since evening prior and had to be woken up out of bed to take meds and eat. However he was able to be put to sleep without issues. She noted that he had a fall out of bed. The morning of admission, the patient didnt wake up and was somnolent. He also had emesis and per , reported abd pain. She also states that he hasnt had a BM in 3days despite lactulose. On arrival patient was vomiting and required suctioning. states patient had no fever, cough, SOB, chest pain, hematemesis, BPR, dysuria. CT head was completed and did not show acute changes. Of note, patient was admitted to [facility] last week for therapeutic paracentesis. Was noted to have sscleral icterus, slight jaundice. Most likely toxic metabolic encephalopathy. On labs, ammonia level normal but hemoglobin and hematocrit reduced and suspicious for anemia. Reviewed notes including from GI recommended Rifaximin aand lactulose, viral hepatitis panels as well as possible endoscopy. Also mention of positive blood cultures and ID consult. Patient with postive occult stool and inquired emergent management overnight. Patient currently in ICU, after rectal bleeding, coffee ground emesis noted, pt went for STAT EGD, received multiple blood transfusions and blood products. Remains intubated and on mechanical ventilation in ICU. Continued monitoring of H/H which has stabilized, GI note reviewed and mentioned continued octeotride. Surgery note reviewed and mentioned EGD may be considered for rebleed but if surgery needed may require tertiary care facility. Discussed with nurse, attempt to wean sedation and eventual extubation when able. Neurologically without significant improvement since being put on mechanical ventilation. Continue GI and hematologic optimization. Monitor H and H, tranfuse as needed. Wean sedation, extubation as able. Continue to monitor mental status. Continue Abx as per primary. Critical care time 35 mins. (
--- NOTE | 2019-09-22 09:21 | PN ---
Progress Note, Physician Chief Complaint: Arousable and intubated maintained on octreotide and Protonix gtt. - Current Medication List Current Medications: Active Medications Chlorhexidine Gluconate (Peridex -) 15 ml MM BID [facility] Last Admin: 09/21/19 22:05 Dose: 15 ml Octreotide Acetate 200 mcg/Octreotide Acetate 1,000 mcg/Dextrose 500 mls @ 20.833 mls/hr IVPB ASDIR [facility] Last Admin: 09/21/19 12:34 Dose: 20.833 mls/hr Propofol (Diprivan -) 1,000,000 mcg in 100 mls @ 2.198 mls/hr IVPB TITR REBEL; Protocol Last Titration: 09/22/19 03:45 Dose: 0 mcg/kg/min, 0 mls/hr Pantoprazole Sodium 80 mg/ (Sodium Chloride) 100 mls @ 10 mls/hr IVPB Q10H [facility] Last Admin: 09/22/19 09:08 Dose: 10 mls/hr Ceftriaxone Sodium 1 gm/ (Dextrose) 50 mls @ 100 mls/hr IVPB DAILY [facility]; Protocol Last Admin: 09/21/19 09:45 Dose: 100 mls/hr Insulin Aspart (Novolog Vial Sliding Scale -) 1 vial SQ ACHS REBEL; Protocol Last Admin: 09/22/19 06:09 Dose: Not Given Metoclopramide HCl (Reglan Injection -) 10 mg IVPUSH Q8H PRN PRN Reason: NAUSEA AND/OR VOMITING - Objective Vital Signs: Vital Signs Temperature 98.6 F 09/22/19 06:00 Pulse Rate 83 09/22/19 08:00 Respiratory Rate 15 09/22/19 08:00 Blood Pressure 147/63 09/22/19 08:00 O2 Sat by Pulse Oximetry (%) 100 09/22/19 01:00 Constitutional: Yes: No Distress, Calm Neck: Yes: Supple Cardiovascular: Yes: Regular Rate and Rhythm Respiratory: Yes: Intubated, Mechanically Ventilated Gastrointestinal: Yes: Soft, Hypoactive Bowel Sounds Edema: No Labs: CBC, BMP 09/21/19 06:33 09/21/19 06:33 INR, PTT INR 1.25 (0.83-1.09) H 09/21/19 06:33 Fibrinogen 175.0 mg/dL (238-498) L 09/19/19 06:20 - ....Imaging EKG: Report Reviewed (Tele: NSR) Assessment/Plan 09/20/2019 Echo: Normal LV size with low normal LV fxn, LVEF 50-55%, mild GREG, mild MR, TR - Problems (1) Altered mental status Code(s): R41.82 - ALTERED MENTAL STATUS, UNSPECIFIED Qualifiers: Altered mental status type: unspecified Qualified Code(s): R41.82 - Altered mental status, unspecified Mechanical ventilation per ABG (2) Anemia Code(s): D64.9 - ANEMIA, UNSPECIFIED (3) GI bleeding Assessment/Plan: s/p EGD showing gastric ulcer s/p clipping, duodenal AVM post cautery No further fresh bleed noted on irrigation, serial CBC, PLT On octreotide and protonix gtt, empiric abx Code(s): K92.2 - GASTROINTESTINAL HEMORRHAGE, UNSPECIFIED (4) Hepatic encephalopathy Code(s): K72.90 - HEPATIC FAILURE, UNSPECIFIED WITHOUT COMA (5) Cirrhosis Code(s): K74.60 - UNSPECIFIED CIRRHOSIS OF LIVER Qualifiers: Hepatic cirrhosis type: unspecified hepatic cirrhosis Ascites presence: with ascites Qualified Code(s): K74.60 - Unspecified cirrhosis of liver; R18.8 - Other ascites (6) Hepatitis C Code(s): B19.20 - UNSPECIFIED VIRAL HEPATITIS C WITHOUT HEPATIC COMA Qualifiers: Viral hepatitis chronicity: chronic Hepatic coma status: without hepatic coma Qualified Code(s): B18.2 - Chronic viral hepatitis C (7) Hypertension Code(s): I10 - ESSENTIAL (PRIMARY) HYPERTENSION Qualifiers: Hypertension type: essential hypertension Qualified Code(s): I10 - Essential (primary) hypertension (8) LBBB (left bundle branch block) Assessment/Plan: EKG: NSR; LBBB (no change from June EKG) TNI < 0.02; f/u serially. TSH WNL. ECHO 11/2018: technically limitied study: normal LVEF; mild TR; unable to assess RV. No prior coronary workup noted. Check outpatient records. Code(s): I44.7 - LEFT BUNDLE-BRANCH BLOCK, UNSPECIFIED 1. Respiratory failure post intubation on mechanical ventilation 2. Anemia with GI bleed and gastric ulcer, duodenal AVM s/p clipping and cautery 3. Hepatic encephalopathy and cirrhosis 4. Hepatitis C 5. HTN 6. LBBB 7. CKD PLAN: 1. Wean trials as tolerated per Critical care team, off sedation 2. Octreotide gtt for another 24 hrs, and Protonix gtt, monitor Hgb, Plt, trend LFTs, NGT to LWS 3. Empiric antibiotics 4. Mechanical VTE prophylaxis
[2019-09-22] MEDS ORDERED: DEXTROSE 5%-WATER - 50 ML IVPB ONE (10:51)
[2019-09-22] MEDS ORDERED: cefTRIAXone SODIUM 1 GM VIAL ONE (10:51)
[2019-09-22] MEDS: CEFTRIAXONE 1 GM in DEXTROSE 5%-WATER - 50 ML IVPB SCH (10:56)
[2019-09-22] MEDS: CHLORHEXIDINE GLUCONATE 0.12% 15ML CUP MM SCH ×2 (11:03→21:21)
[2019-09-22 11:05] LABS: EOS % 2.6 % (0-4.5); HEMATOCRIT 33.6 % (35.4-49); HEMOGLOBIN 11.3 GM/dL (11.7-16.9); LYMPH % 7.9 % (8-40); MCH 29.8 pg (25.7-33.7); MCHC 33.7 g/dl (32.0-35.9); MEAN CELL VOLUME 88.3 fl (80-96); MEAN PLT VOLUME 9.1 fl (7.5-11.1); MONO % 6.6 % (3.8-10.2); NEUT % 81.9 % (42.8-82.8); PLATELET COUNT 71 K/MM3 (134-434); RDW 17.6 % (11.9-15.9); WHITE BLOOD COUNT 7.5 K/mm3 (4.0-10.0)
[2019-09-22 11:50] LABS: ALBUMIN 2.6 g/dl (3.4-5.0); BILIRUBIN,TOTAL 3.4 mg/dL (0.2-1); BLOOD UREA NITROGEN 37.7 mg/dL (7-18); CREATININE 1.5 mg/dL (0.55-1.3); MAGNESIUM 2.1 mg/dL (1.8-2.4); PHOSPHOROUS 3.6 mg/dL (2.5-4.9); POTASSIUM 4.2 mmol/L (3.5-5.1)
[2019-09-22] MEDS ORDERED: FUROSEMIDE 40 MG/4 ML INJECTABLE VIAL IVPUSH ONE (12:03)
[2019-09-22] MEDS ORDERED: LACTULOSE 20 GM/30 ML UDC (FOR RECTAL USE ONLY) PR ONE (12:30)
--- NOTE | 2019-09-22 12:30 | PN ---
Teaching Attending Note Name of Resident: Kj Robledo ATTENDING PHYSICIAN STATEMENT I saw and evaluated the patient. I reviewed the resident's note and discussed the case with the resident. I agree with the resident's findings and plan as documented. SUBJECTIVE: Pt seen and examined in the ICU. Intubated, arousable off sedation. Tolerated CPAP/PS and subsequently extubated during rounds. OBJECTIVE: Vital Signs Period Temp Pulse Resp BP Sys/Shen Pulse Ox Last 24 Hr 97.6 F-99.2 F 60-90 12-18 127-157/53-68 100-100 Intake & Output 09/19/19 09/20/19 09/21/19 09/22/19 23:59 23:59 23:59 23:59 Intake Total 459 2510.0 1124.1 260.4 Output Total 950 1730 1640 850 Balance -491 780.0 -515.9 -589.6 Weight 93.939 kg 92.986 kg 93.984 kg 90.407 kg Gen: extubated Heart: RRR Lung: decreased breath sounds at the bases Abd: soft, nontender Ext: + edema CBC, BMP 09/22/19 10:40 09/22/19 10:40 Active Medications Chlorhexidine Gluconate (Peridex -) 15 ml MM BID REBEL Last Admin: 09/22/19 11:03 Dose: 15 ml Octreotide Acetate 200 mcg/Octreotide Acetate 1,000 mcg/Dextrose 500 mls @ 20.833 mls/hr IVPB ASDIR REBEL Last Admin: 09/21/19 12:34 Dose: 20.833 mls/hr Propofol (Diprivan -) 1,000,000 mcg in 100 mls @ 2.198 mls/hr IVPB TITR REBEL; Protocol Last Titration: 09/22/19 03:45 Dose: 0 mcg/kg/min, 0 mls/hr Pantoprazole Sodium 80 mg/ (Sodium Chloride) 100 mls @ 10 mls/hr IVPB Q10H REBEL Last Admin: 09/22/19 09:08 Dose: 10 mls/hr Ceftriaxone Sodium 1 gm/ (Dextrose) 50 mls @ 100 mls/hr IVPB DAILY REBEL; Protocol Last Admin: 09/22/19 10:56 Dose: 100 mls/hr Insulin Aspart (Novolog Vial Sliding Scale -) 1 vial SQ ACHS REBEL; Protocol Last Admin: 09/22/19 06:09 Dose: Not Given Lactulose (Cephulac (Rectal Use)) 200 gm SD ONCE ONE Stop: 09/22/19 12:31 Last Admin: 09/22/19 12:17 Dose: 200 gm Metoclopramide HCl (Reglan Injection -) 10 mg IVPUSH Q8H PRN PRN Reason: NAUSEA AND/OR VOMITING ASSESSMENT AND PLAN: s/p Acute Respiratory Failure GI Bleed Acute Blood Loss Anemia Gastric Ulcer/Duodenal AVM s/p Clipping/Cautery/Epi injection Hepatic Encephalopathy Liver Cirrhosis Thrombocytopenia/Coagulopathy CKD Volume Overlad HTN - pt extubated - continue protonix, octreotide - monitor H/H - lasix today - monitor urine output, creatinine - on empiric antibiotics - start lactulose - aspiration precautions - DVT prophylaxis - continue ICU monitoring critical care time spent in reviewing chart, evaluating patient and formulating plan 35 min
--- NOTE | 2019-09-22 13:35 | PN ---
Progress Note, Physician History of Present Illness: Pt seen and examined at bedside. He remains in the ICU. He is on a weaning trial. - Current Medication List Current Medications: Active Medications Chlorhexidine Gluconate (Peridex -) 15 ml MM BID REBEL Last Admin: 09/22/19 11:03 Dose: 15 ml Octreotide Acetate 200 mcg/Octreotide Acetate 1,000 mcg/Dextrose 500 mls @ 20.833 mls/hr IVPB ASDIR REBEL Last Admin: 09/21/19 12:34 Dose: 20.833 mls/hr Propofol (Diprivan -) 1,000,000 mcg in 100 mls @ 2.198 mls/hr IVPB TITR REBEL; Protocol Last Titration: 09/22/19 03:45 Dose: 0 mcg/kg/min, 0 mls/hr Pantoprazole Sodium 80 mg/ (Sodium Chloride) 100 mls @ 10 mls/hr IVPB Q10H REBEL Last Admin: 09/22/19 09:08 Dose: 10 mls/hr Ceftriaxone Sodium 1 gm/ (Dextrose) 50 mls @ 100 mls/hr IVPB DAILY [facility]; Protocol Last Admin: 09/22/19 10:56 Dose: 100 mls/hr Insulin Aspart (Novolog Vial Sliding Scale -) 1 vial SQ ACHS ERBEL; Protocol Last Admin: 09/22/19 12:50 Dose: 2 units Metoclopramide HCl (Reglan Injection -) 10 mg IVPUSH Q8H PRN PRN Reason: NAUSEA AND/OR VOMITING - Objective Vital Signs: Vital Signs Temperature 99.2 F 09/22/19 10:00 Pulse Rate 88 09/22/19 12:00 Respiratory Rate 14 09/22/19 12:00 Blood Pressure 135/61 09/22/19 12:00 O2 Sat by Pulse Oximetry (%) 100 09/22/19 11:52 Constitutional: Yes: Calm Eyes: Yes: Conjunctiva Clear Cardiovascular: Yes: S1 Respiratory: Yes: Intubated, Mechanically Ventilated Gastrointestinal: Yes: Soft Genitourinary: Yes: Myers Present Edema: Yes Edema: LLE: 2+, RLE: 2+ Neurological: Yes: Lethargy Labs: CBC, BMP 09/22/19 10:40 09/22/19 10:40 INR, PTT INR 1.25 (0.83-1.09) H 09/21/19 06:33 Fibrinogen 175.0 mg/dL (238-498) L 09/19/19 06:20 Assessment/Plan Current Medications Generic Name Dose Route Start Last Admin Trade Name Frebrenda PRN Reason Stop Dose Admin Chlorhexidine Gluconate 15 ml 09/21/19 10:00 09/22/19 11:03 Peridex - MM 15 ml BID REBEL Administration Octreotide Acetate 200 mcg/ 500 mls @ 20.833 mls/hr 09/17/19 12:00 09/21/19 12:34 Octreotide Acetate 1,000 mcg/ IVPB 20.833 mls/hr Dextrose ASDIR REBEL Administration Propofol 1,000,000 mcg in 100 mls @ 2.198 mls/hr 09/17/19 18:15 09/22/19 03: 45 Diprivan - IVPB 0 mcg/kg/min TITR REBEL 0 mls/hr Titration Protocol 5 MCG/KG/MIN Pantoprazole Sodium 80 mg/ 100 mls @ 10 mls/hr 09/17/19 18:15 09/22/19 09:08 Sodium Chloride IVPB 10 mls/hr Q10H REBEL Administration 8 MG/HR Ceftriaxone Sodium 1 gm/ 50 mls @ 100 mls/hr 09/18/19 10:00 09/22/19 10:56 Dextrose IVPB 100 mls/hr DAILY REBEL Administration Protocol Insulin Aspart 1 vial 09/17/19 16:30 09/22/19 12:50 Novolog Vial Sliding Scale - SQ 2 units ACHS REBEL Administration Protocol Metoclopramide HCl 10 mg 09/20/19 15:59 Reglan Injection - IVPUSH Q8H PRN NAUSEA AND/OR VOMITING IMpression 1. LAKEISHA 2. dm 3. gi bleed 4. resp failure 5. hep c 6. liver cirrhosos Plan - monitor renal function - can give lasix - discussed with ICU team - pt on weaning trial - monitor urine output
[2019-09-22 17:08] LABS: ARTERIAL BLD GAS O2 SATURATION 99.5 % (95-98); ARTERIAL BLOOD GAS BASE EXCESS -5.1 meq/l (-2-2); ARTERIAL BLOOD GAS PCO2 37.4 mmHg (35-45); ARTERIAL BLOOD GAS PO2 180 mmHg (80-100); ARTERIAL BLOOD GAS pH 7.34 (7.35-7.45)
[2019-09-22 17:11] LABS: ALLENS TEST POSITIVE
[2019-09-22] MEDS ORDERED: PT OWN MED DRAWER 7, Y5N ONE ×2 (17:22→20:53)
[2019-09-22] MEDS: OCTREOTIDE ACETATE 200 MCG, OCTREOTIDE ACETATE 1,000 MCG in DEXTROSE 5%-WATER - 496 ML IVPB SCH (17:23)
--- NOTE | 2019-09-22 17:49 | PN ---
Progress Note, Physician History of Present Illness: extubated - Current Medication List Current Medications: Active Medications Chlorhexidine Gluconate (Peridex -) 15 ml MM BID REBEL Last Admin: 09/22/19 11:03 Dose: 15 ml Octreotide Acetate 200 mcg/Octreotide Acetate 1,000 mcg/Dextrose 500 mls @ 20.833 mls/hr IVPB ASDIR REBEL Last Admin: 09/22/19 17:23 Dose: 20.833 mls/hr Propofol (Diprivan -) 1,000,000 mcg in 100 mls @ 2.198 mls/hr IVPB TITR REBEL; Protocol Last Titration: 09/22/19 03:45 Dose: 0 mcg/kg/min, 0 mls/hr Pantoprazole Sodium 80 mg/ (Sodium Chloride) 100 mls @ 10 mls/hr IVPB Q10H REBEL Last Admin: 09/22/19 09:08 Dose: 10 mls/hr Ceftriaxone Sodium 1 gm/ (Dextrose) 50 mls @ 100 mls/hr IVPB DAILY [facility]EL; Protocol Last Admin: 09/22/19 10:56 Dose: 100 mls/hr Insulin Aspart (Novolog Vial Sliding Scale -) 1 vial SQ ACHS REBEL; Protocol Last Admin: 09/22/19 17:09 Dose: 2 units Metoclopramide HCl (Reglan Injection -) 10 mg IVPUSH Q8H PRN PRN Reason: NAUSEA AND/OR VOMITING - Objective Vital Signs: Vital Signs Temperature 98.2 F 09/22/19 14:00 Pulse Rate 80 09/22/19 16:00 Respiratory Rate 10 09/22/19 16:00 Blood Pressure 135/55 L 09/22/19 16:00 O2 Sat by Pulse Oximetry (%) 100 09/22/19 13:34 HENT: Yes: Atraumatic Neck: Yes: Supple Cardiovascular: Yes: Regular Rate and Rhythm Respiratory: Yes: CTA Bilaterally Gastrointestinal: Yes: Normal Bowel Sounds Extremities: Yes: WNL Edema: No Neurological: Yes: Alert, Oriented Labs: CBC, BMP 09/22/19 10:40 09/22/19 10:40 INR, PTT INR 1.25 (0.83-1.09) H 09/21/19 06:33 Fibrinogen 175.0 mg/dL (238-498) L 09/19/19 06:20 Problem List - Problems (1) Altered mental status Assessment/Plan: awake Code(s): R41.82 - ALTERED MENTAL STATUS, UNSPECIFIED Qualifiers: Altered mental status type: unspecified Qualified Code(s): R41.82 - Altered mental status, unspecified (2) Aphasia Code(s): R47.01 - APHASIA (3) Hepatic encephalopathy Assessment/Plan: intubated Code(s): K72.90 - HEPATIC FAILURE, UNSPECIFIED WITHOUT COMA (4) Cirrhosis Code(s): K74.60 - UNSPECIFIED CIRRHOSIS OF LIVER Qualifiers: Hepatic cirrhosis type: unspecified hepatic cirrhosis Ascites presence: with ascites Qualified Code(s): K74.60 - Unspecified cirrhosis of liver; R18.8 - Other ascites (5) Hepatitis C Code(s): B19.20 - UNSPECIFIED VIRAL HEPATITIS C WITHOUT HEPATIC COMA Qualifiers: Viral hepatitis chronicity: chronic Hepatic coma status: without hepatic coma Qualified Code(s): B18.2 - Chronic viral hepatitis C (6) Hypertension Code(s): I10 - ESSENTIAL (PRIMARY) HYPERTENSION Qualifiers: Hypertension type: essential hypertension Qualified Code(s): I10 - Essential (primary) hypertension (7) Anemia Assessment/Plan: s/p egd prbc transfusion Code(s): D64.9 - ANEMIA, UNSPECIFIED (8) Bacteremia Assessment/Plan: d/w id no need for abx 1 bottle is positive which could be contamination Code(s): R78.81 - BACTEREMIA (9) GI bleeding Assessment/Plan: follow up h/h transfuse prbc...2 units gi follow up Code(s): K92.2 - GASTROINTESTINAL HEMORRHAGE, UNSPECIFIED Assessment/Plan cc time 30 min
[2019-09-23] MEDS: INSULIN SLIDING SCALE (NOVOLOG) 1 VIAL SQ SCH ×5 (01:19→17:02)
[2019-09-23] MEDS: PANTOPRAZOLE SODIUM 80 MG in SODIUM CHLORIDE 100 ML IVPB SCH (06:31)
[2019-09-23 06:58] LABS: BASO % 0.6 % (0-2.0); EOS % 2.9 % (0-4.5); HEMATOCRIT 28.5 % (35.4-49); HEMOGLOBIN 9.7 GM/dL (11.7-16.9); LYMPH % 12.1 % (8-40); MCH 30.2 pg (25.7-33.7); MEAN CELL VOLUME 88.8 fl (80-96); MEAN PLT VOLUME 8.7 fl (7.5-11.1); MONO % 7.6 % (3.8-10.2); NEUT % 76.8 % (42.8-82.8); PLATELET COUNT 48 K/MM3 (134-434); RBC 3.21 M/mm3 (4.00-5.60); RDW 17.6 % (11.9-15.9); WHITE BLOOD COUNT 5.3 K/mm3 (4.0-10.0)
[2019-09-23 07:13] LABS: ALBUMIN 2.4 g/dl (3.4-5.0); BLOOD UREA NITROGEN 36.6 mg/dL (7-18); CALCIUM 8.1 mg/dL (8.5-10.1); CREATININE 1.4 mg/dL (0.55-1.3); MAGNESIUM 1.9 mg/dL (1.8-2.4); PHOSPHOROUS 3.1 mg/dL (2.5-4.9); POTASSIUM 4.1 mmol/L (3.5-5.1); TOT PROT 5.4 g/dl (6.4-8.2)
[2019-09-23] MEDS ORDERED: FUROSEMIDE 40 MG/4 ML INJECTABLE VIAL IVPUSH ONE (08:39)
--- NOTE | 2019-09-23 09:13 | PN ---
Progress Note (short form) - Note Progress Note: Neurology Chief Complaint: Altered Mental Status HPI: 68 y/o M with hx of IDDM, HCV, cirrhosis, asthma presenting to the ED for altered mental status from the night prior to admission. per notes, the reported he has appeared more lethargic since evening prior and had to be woken up out of bed to take meds and eat. However he was able to be put to sleep without issues. She noted that he had a fall out of bed. The morning of admission, the patient didnt wake up and was somnolent. He also had emesis and per , reported abd pain. She also states that he hasnt had a BM in 3days despite lactulose. On arrival patient was vomiting and required suctioning. states patient had no fever, cough, SOB, chest pain, hematemesis, BPR, dysuria. CT head was completed and did not show acute changes. Of note, patient was admitted to [facility] last week for therapeutic paracentesis. Was noted to have sscleral icterus, slight jaundice. Most likely toxic metabolic encephalopathy. On labs, ammonia level normal but hemoglobin and hematocrit reduced and suspicious for anemia.GI recommended Rifaximin aand lactulose, viral hepatitis panels as well as possible endoscopy. Also mention of positive blood cultures and ID consult. Patient with postive occult stool and inquired emergent management overnight. Patient currently in ICU, after rectal bleeding, coffee ground emesis noted, pt went for STAT EGD, received multiple blood transfusions and blood products. Remains intubated and on mechanical ventilation in ICU. Continued monitoring of H/H which has stabilized, GI note reviewed and mentioned continued octeotride. Surgery note reviewed and mentioned EGD may be considered for rebleed but if surgery needed may require tertiary care facility. Currently on antibiotics, Ceftriaxone. Remains in ICU care no longer on sedation, has been extubated and comfortable appearing on room air. He still is fatigued appearing, seen at bedside with nurse, eyes are open but not following complex commands yet. Mental status is not yet at its baseline. Active Medications Ceftriaxone Sodium 1 gm/ (Dextrose) 50 mls @ 100 mls/hr IVPB DAILY REBEL; Protocol Last Admin: 09/22/19 10:56 Dose: 100 mls/hr Insulin Aspart (Novolog Vial Sliding Scale -) 1 vial SQ ACHS REBEL; Protocol Last Admin: 09/23/19 06:43 Dose: Not Given Metoclopramide HCl (Reglan Injection -) 10 mg IVPUSH Q8H PRN PRN Reason: NAUSEA AND/OR VOMITING Pantoprazole Sodium (Protonix Iv) 40 mg IVPUSH BID REBEL *Physical Exam Vital Signs Period Temp Pulse Resp BP Sys/Shen Pulse Ox Last 24 Hr 97.6 F-99.2 F 75-90 10-16 121-154/52-68 100-100 GENERAL: sedated and on ventilation HEAD: No signs of trauma, normocephalic, atraumatic EYES: EOMI, scleral icterus, conjunctiva clear ENT: Auricles normal inspection, hearing grossly normal, nares patent, oropharynx clear without exudates. Moist mucosa NECK: Normal ROM, no lymphadenopathy LUNGS: No increased work of breathing, symmetrical chest rise, clear to auscultation bilaterally, no wheezes, crackles or rhonchi HEART: Regular rate and rhythm, normal S1 and S2, no murmurs, peripheral pulses 2+ and equal bilaterally. ABDOMEN: Soft, nondistended, nontender, normoactive bowel sounds. No guarding, no rebound. No masses. No CVAT EXTREMITIES: Normal inspection, Normal range of motion, no edema. No clubbing or cyanosis. NEUROLOGICAL: sedated and on mechanical vent, moves extremities to pain, not following commands, no abnormal movements SKIN: jaundice CBCD WBC 5.3 K/mm3 (4.0-10.0) 09/23/19 06:28 RBC 3.21 M/mm3 (4.00-5.60) L 09/23/19 06:28 Hgb 9.7 GM/dL (11.7-16.9) L 09/23/19 06:28 Hct 28.5 % (35.4-49) L D 09/23/19 06:28 MCV 88.8 fl (80-96) 09/23/19 06:28 MCHC 34.0 g/dl (32.0-35.9) 09/23/19 06:28 RDW 17.6 % (11.9-15.9) H 09/23/19 06:28 Plt Count 48 K/MM3 (134-434) L D 09/23/19 06:28 MPV 8.7 fl (7.5-11.1) 09/23/19 06:28 CMP Sodium 144 mmol/L (136-145) 09/23/19 06:28 Potassium 4.1 mmol/L (3.5-5.1) 09/23/19 06:28 Chloride 117 mmol/L (98-107) H 09/23/19 06:28 Carbon Dioxide 23 mmol/L (21-32) 09/23/19 06:28 Anion Gap 4 MMOL/L (8-16) L 09/23/19 06:28 BUN 36.6 mg/dL (7-18) H 09/23/19 06:28 Creatinine 1.4 mg/dL (0.55-1.3) H 09/23/19 06:28 Random Glucose 165 mg/dL (74-106) H 09/23/19 06:28 Calcium 8.1 mg/dL (8.5-10.1) L 09/23/19 06:28 Total Bilirubin 3.0 mg/dL (0.2-1) H 09/23/19 06:28 AST 30 U/L (15-37) 09/23/19 06:28 ALT 20 U/L (13-61) 09/23/19 06:28 Alkaline Phosphatase 128 U/L (45-117) H 09/23/19 06:28 Total Protein 5.4 g/dl (6.4-8.2) L 09/23/19 06:28 Albumin 2.4 g/dl (3.4-5.0) L 09/23/19 06:28 CARDIAC ENZYMES Creatine Kinase 268 U/L (26-308) 09/13/19 12:45 Troponin I < 0.02 ng/ml (0.00-0.05) 09/13/19 12:45 Medical Decision Making 68 y/o M with hx of IDDM, HCV, cirrhosis, asthma presenting to the ED for altered mental status from the night prior to admission. per notes, the reported he has appeared more lethargic since evening prior and had to be woken up out of bed to take meds and eat. However he was able to be put to sleep without issues. She noted that he had a fall out of bed. The morning of admission, the patient didnt wake up and was somnolent. He also had emesis and per , reported abd pain. She also states that he hasnt had a BM in 3days despite lactulose. On arrival patient was vomiting and required suctioning. states patient had no fever, cough, SOB, chest pain, hematemesis, BPR, dysuria. CT head was completed and did not show acute changes. Of note, patient was admitted to [facility] last week for therapeutic paracentesis. Was noted to have sscleral icterus, slight jaundice. Most likely toxic metabolic encephalopathy. On labs, ammonia level normal but hemoglobin and hematocrit reduced and suspicious for anemia. Reviewed notes including from GI recommended Rifaximin aand lactulose, viral hepatitis panels as well as possible endoscopy. Also mention of positive blood cultures and ID consult. Patient with postive occult stool and inquired emergent management overnight. Patient currently in ICU, after rectal bleeding, coffee ground emesis noted, pt went for STAT EGD, received multiple blood transfusions and blood products. Remains intubated and on mechanical ventilation in ICU. Continued monitoring of H/H which has stabilized, GI note reviewed and mentioned continued octeotride. Surgery note reviewed and mentioned EGD may be considered for rebleed but if surgery needed may require tertiary care facility. He still is fatigued appearing, seen at bedside with nurse, eyes are open but not following complex commands yet. Mental status is not yet at its baseline but has improved. Continue GI and hematologic optimization. Monitor H and H, tranfuse as needed. Continue to monitor mental status. Continue Abx as per primary. Critical care time 35 mins. (
--- NOTE | 2019-09-23 09:55 | PN ---
Progress Note, Physician Chief Complaint: Extubated on 40% VM, off octreotide and Protonix gtt, now on Protonix IV bid. - Current Medication List Current Medications: Active Medications Ceftriaxone Sodium 1 gm/ (Dextrose) 50 mls @ 100 mls/hr IVPB DAILY [facility]; Protocol Last Admin: 09/22/19 10:56 Dose: 100 mls/hr Insulin Aspart (Novolog Vial Sliding Scale -) 1 vial SQ ACHS [facility]; Protocol Last Admin: 09/23/19 06:43 Dose: Not Given Metoclopramide HCl (Reglan Injection -) 10 mg IVPUSH Q8H PRN PRN Reason: NAUSEA AND/OR VOMITING Pantoprazole Sodium (Protonix Iv) 40 mg IVPUSH BID REBEL - Objective Vital Signs: Vital Signs Temperature 97.6 F 09/23/19 02:00 Pulse Rate 77 09/23/19 06:00 Respiratory Rate 12 09/23/19 06:00 Blood Pressure 132/61 09/23/19 06:00 O2 Sat by Pulse Oximetry (%) 100 09/23/19 07:35 Constitutional: Yes: No Distress, Calm Neck: Yes: Supple Cardiovascular: Yes: Regular Rate and Rhythm Respiratory: Yes: Regular, Diminished, On Venti-Mask Gastrointestinal: Yes: Soft, Hypoactive Bowel Sounds Edema: No Labs: CBC, BMP 09/23/19 06:28 09/23/19 06:28 INR, PTT INR 1.25 (0.83-1.09) H 09/21/19 06:33 Fibrinogen 175.0 mg/dL (238-498) L 09/19/19 06:20 - ....Imaging Chest X-ray: Report Reviewed (Congestion, left base ATX) EKG: Report Reviewed (Tele: NSR) Assessment/Plan 09/20/2019 Echo: Normal LV size with low normal LV fxn, LVEF 50-55%, mild GREG, mild MR, TR - Problems (1) Altered mental status Code(s): R41.82 - ALTERED MENTAL STATUS, UNSPECIFIED Qualifiers: Altered mental status type: unspecified Qualified Code(s): R41.82 - Altered mental status, unspecified Extubated (2) Anemia Code(s): D64.9 - ANEMIA, UNSPECIFIED (3) GI bleeding Assessment/Plan: s/p EGD showing gastric ulcer s/p clipping, duodenal AVM post cautery No further fresh bleed noted on irrigation, serial CBC, PLT Completed octreotide and protonix gtt, empiric abx Code(s): K92.2 - GASTROINTESTINAL HEMORRHAGE, UNSPECIFIED (4) Hepatic encephalopathy Code(s): K72.90 - HEPATIC FAILURE, UNSPECIFIED WITHOUT COMA (5) Cirrhosis Code(s): K74.60 - UNSPECIFIED CIRRHOSIS OF LIVER Qualifiers: Hepatic cirrhosis type: unspecified hepatic cirrhosis Ascites presence: with ascites Qualified Code(s): K74.60 - Unspecified cirrhosis of liver; R18.8 - Other ascites (6) Hepatitis C Code(s): B19.20 - UNSPECIFIED VIRAL HEPATITIS C WITHOUT HEPATIC COMA Qualifiers: Viral hepatitis chronicity: chronic Hepatic coma status: without hepatic coma Qualified Code(s): B18.2 - Chronic viral hepatitis C (7) Hypertension Code(s): I10 - ESSENTIAL (PRIMARY) HYPERTENSION Qualifiers: Hypertension type: essential hypertension Qualified Code(s): I10 - Essential (primary) hypertension (8) LBBB (left bundle branch block) Assessment/Plan: EKG: NSR; LBBB (no change from June EKG) TNI < 0.02; f/u serially. TSH WNL. ECHO 11/2018: technically limitied study: normal LVEF; mild TR; unable to assess RV. No prior coronary workup noted. Check outpatient records. Code(s): I44.7 - LEFT BUNDLE-BRANCH BLOCK, UNSPECIFIED 1. s/p Acute respiratory failure 2. Acute blood loss Anemia with GI bleed and gastric ulcer, duodenal AVM s/p clipping and cautery 3. Hepatic encephalopathy and cirrhosis 4. Hepatitis C 5. HTN 6. LBBB 7. CKD 8. Thrombocytopenia/Coagulopathy PLAN: 1. Wean FIO2 as tolerated, diuretics as needed with monitor diuretic response, renal fxn and electrolytes 2. Protonix IV, monitor Hgb, Plt, trend LFTs, NGT to LWS, started lactulose 3. Empiric antibiotics 4. Mechanical VTE prophylaxis
[2019-09-23] MEDS ORDERED: cefTRIAXone SODIUM 1 GM VIAL ONE (10:02)
[2019-09-23] MEDS ORDERED: DEXTROSE 5%-WATER - 50 ML IVPB ONE (10:02)
[2019-09-23] MEDS: CEFTRIAXONE 1 GM in DEXTROSE 5%-WATER - 50 ML IVPB SCH (10:06)
[2019-09-23] MEDS: PANTOPRAZOLE SODIUM 40 MG VIAL IVPUSH SCH ×2 (10:08→23:07)
[2019-09-23] MEDS ORDERED: LACTULOSE 20 GM/30 ML UDC (FOR ORAL USE ONLY) PO PRN (12:05)
--- NOTE | 2019-09-23 12:11 | PN ---
Teaching Attending Note Name of Resident: Kike Esparza ATTENDING PHYSICIAN STATEMENT I saw and evaluated the patient. I reviewed the resident's note and discussed the case with the resident. I agree with the resident's findings and plan as documented. SUBJECTIVE: Patient seen and examined in the ICU. Remains extubated. Confused but able to tell us his name after multiple attempts. Mildly tachypneic at rest on VM O2. Intake & Output 09/20/19 09/21/19 09/22/19 09/23/19 23:59 23:59 23:59 23:59 Intake Total 2510.0 1124.1 809.4 260 Output Total 1730 1640 2550 2300 Balance 780.0 -515.9 -1740.6 -2040 Weight 205 lb 207 lb 3.2 oz 199 lb 5 oz 191 lb 3.2 oz Last Vital Signs Temp Pulse Resp BP Pulse Ox 97.8 F 68 12 130/57 L 100 09/23/19 10:00 09/23/19 10:00 09/23/19 10:00 09/23/19 10:00 09/23/19 07:35 Active Medications Ceftriaxone Sodium 1 gm/ (Dextrose) 50 mls @ 100 mls/hr IVPB DAILY [facility]; Protocol Last Admin: 09/23/19 10:06 Dose: 100 mls/hr Insulin Aspart (Novolog Vial Sliding Scale -) 1 vial SQ ACHS [facility]; Protocol Last Admin: 09/23/19 11:20 Dose: 2 units Lactulose (Cephulac (Oral Use)) 20 gm PO TID PRN PRN Reason: CONSTIPATION Metoclopramide HCl (Reglan Injection -) 10 mg IVPUSH Q8H PRN PRN Reason: NAUSEA AND/OR VOMITING Pantoprazole Sodium (Protonix Iv) 40 mg IVPUSH BID REBEL Last Admin: 09/23/19 10:08 Dose: 40 mg Rifaximin (Xifaxan -) 200 mg PO BID [facility] OBJECTIVE: Gen: Extubated, confused, mildly tachypneic Heart: RRR Lung: decreased breath sounds at the bases, bilateral rhonchi Abd: soft, nontender Ext: + edema Laboratory Results - last 24 hr 09/22/19 09/22/19 09/22/19 12:39 16:45 17:00 WBC RBC Hgb Hct MCV MCH MCHC RDW Plt Count MPV Absolute Neuts (auto) Neutrophils % Lymphocytes % Monocytes % Eosinophils % Basophils % Nucleated RBC % Anticoagulation Therapy No Result Required. Puncture Site Left radial ABG pH 7.34 L ABG pCO2 at Pt Temp 37.4 ABG pO2 at Pt Temp 180 H ABG HCO3 19.6 L ABG O2 Sat (Measured) 99.5 H ABG O2 Content 15.7 ABG Base Excess -5.1 L Hussein Test Positive O2 Delivery Device No Result Required. Oxygen Flow Rate 50% Vent Mode No Result Required. Vent Rate No Result Required. Mechanical Rate No Result Required. Pressure Support Vent No Result Required. Sodium Potassium Chloride Carbon Dioxide Anion Gap BUN Creatinine Est GFR (CKD-EPI)AfAm Est GFR (CKD-EPI)NonAf POC Glucometer 167 172 Random Glucose Calcium Phosphorus Magnesium Total Bilirubin AST ALT Alkaline Phosphatase Ammonia Total Protein Albumin 09/22/19 09/23/19 09/23/19 23:31 06:28 06:28 WBC 5.3 RBC 3.21 L Hgb 9.7 L Hct 28.5 L D MCV 88.8 MCH 30.2 MCHC 34.0 RDW 17.6 H Plt Count 48 L D MPV 8.7 Absolute Neuts (auto) 4.0 Neutrophils % 76.8 Lymphocytes % 12.1 D Monocytes % 7.6 Eosinophils % 2.9 Basophils % 0.6 Nucleated RBC % 0 Anticoagulation Therapy Puncture Site ABG pH ABG pCO2 at Pt Temp ABG pO2 at Pt Temp ABG HCO3 ABG O2 Sat (Measured) ABG O2 Content ABG Base Excess Hussein Test O2 Delivery Device Oxygen Flow Rate Vent Mode Vent Rate Mechanical Rate Pressure Support Vent Sodium 144 Potassium 4.1 Chloride 117 H Carbon Dioxide 23 Anion Gap 4 L BUN 36.6 H Creatinine 1.4 H Est GFR (CKD-EPI)AfAm 58.58 Est GFR (CKD-EPI)NonAf 50.54 POC Glucometer 154 Random Glucose 165 H Calcium 8.1 L Phosphorus 3.1 Magnesium 1.9 Total Bilirubin 3.0 H AST 30 ALT 20 Alkaline Phosphatase 128 H Ammonia Total Protein 5.4 L Albumin 2.4 L 09/23/19 09/23/19 09/23/19 06:28 06:41 11:11 WBC RBC Hgb Hct MCV MCH MCHC RDW Plt Count MPV Absolute Neuts (auto) Neutrophils % Lymphocytes % Monocytes % Eosinophils % Basophils % Nucleated RBC % Anticoagulation Therapy Puncture Site ABG pH ABG pCO2 at Pt Temp ABG pO2 at Pt Temp ABG HCO3 ABG O2 Sat (Measured) ABG O2 Content ABG Base Excess Hussein Test O2 Delivery Device Oxygen Flow Rate Vent Mode Vent Rate Mechanical Rate Pressure Support Vent Sodium Potassium Chloride Carbon Dioxide Anion Gap BUN Creatinine Est GFR (CKD-EPI)AfAm Est GFR (CKD-EPI)NonAf POC Glucometer 149 160 Random Glucose Calcium Phosphorus Magnesium Total Bilirubin AST ALT Alkaline Phosphatase Ammonia 57.20 H Total Protein Albumin ASSESSMENT AND PLAN: s/p Acute Respiratory Failure GI Bleed Acute Blood Loss Anemia Gastric Ulcer/Duodenal AVM s/p Clipping/Cautery/Epi injection Hepatic Encephalopathy Liver Cirrhosis Thrombocytopenia/Coagulopathy CKD Volume Overlad HTN - Aspiration precautions - continue protonix, octreotide per GI - NGT - monitor H/H - Lasix today - monitor urine output, creatinine - On empiric antibiotics - Lactulose - DVT prophylaxis - continue ICU monitoring for tenuous overall status Dr Rodriguez
[2019-09-23] MEDS ORDERED: RIFAXIMIN 200 MG TABLET PO SCH (12:15)
--- NOTE | 2019-09-23 12:15 | PN ---
Progress Note, Physician History of Present Illness: Pt seen and examined at bedside. He is now extubated. - Current Medication List Current Medications: Active Medications Ceftriaxone Sodium 1 gm/ (Dextrose) 50 mls @ 100 mls/hr IVPB DAILY [facility]; Protocol Last Admin: 09/23/19 10:06 Dose: 100 mls/hr Insulin Aspart (Novolog Vial Sliding Scale -) 1 vial SQ ACHS [facility]; Protocol Last Admin: 09/23/19 11:20 Dose: 2 units Lactulose (Cephulac (Oral Use)) 20 gm PO TID PRN PRN Reason: CONSTIPATION Metoclopramide HCl (Reglan Injection -) 10 mg IVPUSH Q8H PRN PRN Reason: NAUSEA AND/OR VOMITING Pantoprazole Sodium (Protonix Iv) 40 mg IVPUSH BID [facility] Last Admin: 09/23/19 10:08 Dose: 40 mg Rifaximin (Xifaxan -) 200 mg PO BID [facility] - Objective Vital Signs: Vital Signs Temperature 97.8 F 09/23/19 10:00 Pulse Rate 68 09/23/19 10:00 Respiratory Rate 12 09/23/19 10:00 Blood Pressure 130/57 L 09/23/19 10:00 O2 Sat by Pulse Oximetry (%) 100 09/23/19 07:35 Constitutional: Yes: Calm Eyes: Yes: Conjunctiva Clear HENT: Yes: Atraumatic Neck: Yes: Supple Cardiovascular: Yes: S1, S2 Respiratory: Yes: On Venti-Mask Gastrointestinal: Yes: Soft Genitourinary: Yes: Myers Present Musculoskeletal: Yes: WNL Edema: Yes Edema: LUE: 2+, RUE: 2+, LLE: 1+, RLE: 1+ Neurological: Yes: Other (awake) Labs: CBC, BMP 09/23/19 06:28 09/23/19 06:28 INR, PTT INR 1.25 (0.83-1.09) H 09/21/19 06:33 Fibrinogen 175.0 mg/dL (238-498) L 09/19/19 06:20 Assessment/Plan Current Medications Generic Name Dose Route Start Last Admin Trade Name Freq PRN Reason Stop Dose Admin Ceftriaxone Sodium 1 gm/ 50 mls @ 100 mls/hr 09/18/19 10:00 09/23/19 10:06 Dextrose IVPB 100 mls/hr DAILY [facility] Administration Protocol Insulin Aspart 1 vial 09/17/19 16:30 09/23/19 11:20 Novolog Vial Sliding Scale - SQ 2 units ACHS [facility] Administration Protocol Lactulose 20 gm 09/23/19 12:05 Cephulac (Oral Use) PO TID PRN CONSTIPATION Metoclopramide HCl 10 mg 09/20/19 15:59 Reglan Injection - IVPUSH Q8H PRN NAUSEA AND/OR VOMITING Pantoprazole Sodium 40 mg 09/23/19 10:00 09/23/19 10:08 Protonix Iv IVPUSH 40 mg BID [facility] Administration Rifaximin 200 mg 09/23/19 12:15 Xifaxan - PO BID REBEL Impression 1. LAKEISHA 2. dm 3. gi bleed 4. resp failure 5. hep c 6. liver cirrhosos Plan - cont with lasix - monitor volume status - pt now extubated - monitor renal function - discussed with ICU team - monitor urine output
--- NOTE | 2019-09-23 12:37 | PN ---
Physical Exam: SUBJECTIVE: Patient seen and examined. Mental status still altered. Able to follow commands and respond to some questions. OBJECTIVE: Vital Signs Period Temp Pulse Resp BP Sys/Shen Pulse Ox Last 24 Hr 97.6 F-98.2 F 68-81 10-16 121-136/52-68 100-100 GENERAL: The patient is awake, alert, no acute distress. HEAD: Normal with no signs of trauma. EYES: PERRL, EOMI, no scleral icterus ENT: dry mucous membranes NECK: Trachea midline, full range of motion, supple. LUNGS: rhonchi bilaterally, no accessory muscle use. HEART: RRR, S1, S2 ABDOMEN: Soft, nontender, nondistended, normoactive bowel sounds, no guarding, no rebound, no hepatosplenomegaly, no masses. EXTREMITIES: 2+ non pitting edema of extremities Laboratory Results - last 24 hr 09/22/19 09/22/19 09/22/19 12:39 16:45 17:00 WBC RBC Hgb Hct MCV MCH MCHC RDW Plt Count MPV Absolute Neuts (auto) Neutrophils % Lymphocytes % Monocytes % Eosinophils % Basophils % Nucleated RBC % Anticoagulation Therapy No Result Required. Puncture Site Left radial ABG pH 7.34 L ABG pCO2 at Pt Temp 37.4 ABG pO2 at Pt Temp 180 H ABG HCO3 19.6 L ABG O2 Sat (Measured) 99.5 H ABG O2 Content 15.7 ABG Base Excess -5.1 L Hussein Test Positive O2 Delivery Device No Result Required. Oxygen Flow Rate 50% Vent Mode No Result Required. Vent Rate No Result Required. Mechanical Rate No Result Required. Pressure Support Vent No Result Required. Sodium Potassium Chloride Carbon Dioxide Anion Gap BUN Creatinine Est GFR (CKD-EPI)AfAm Est GFR (CKD-EPI)NonAf POC Glucometer 167 172 Random Glucose Calcium Phosphorus Magnesium Total Bilirubin AST ALT Alkaline Phosphatase Ammonia Total Protein Albumin 09/22/19 09/23/19 09/23/19 23:31 06:28 06:28 WBC 5.3 RBC 3.21 L Hgb 9.7 L Hct 28.5 L D MCV 88.8 MCH 30.2 MCHC 34.0 RDW 17.6 H Plt Count 48 L D MPV 8.7 Absolute Neuts (auto) 4.0 Neutrophils % 76.8 Lymphocytes % 12.1 D Monocytes % 7.6 Eosinophils % 2.9 Basophils % 0.6 Nucleated RBC % 0 Anticoagulation Therapy Puncture Site ABG pH ABG pCO2 at Pt Temp ABG pO2 at Pt Temp ABG HCO3 ABG O2 Sat (Measured) ABG O2 Content ABG Base Excess Hussein Test O2 Delivery Device Oxygen Flow Rate Vent Mode Vent Rate Mechanical Rate Pressure Support Vent Sodium 144 Potassium 4.1 Chloride 117 H Carbon Dioxide 23 Anion Gap 4 L BUN 36.6 H Creatinine 1.4 H Est GFR (CKD-EPI)AfAm 58.58 Est GFR (CKD-EPI)NonAf 50.54 POC Glucometer 154 Random Glucose 165 H Calcium 8.1 L Phosphorus 3.1 Magnesium 1.9 Total Bilirubin 3.0 H AST 30 ALT 20 Alkaline Phosphatase 128 H Ammonia Total Protein 5.4 L Albumin 2.4 L 09/23/19 09/23/19 09/23/19 06:28 06:41 11:11 WBC RBC Hgb Hct MCV MCH MCHC RDW Plt Count MPV Absolute Neuts (auto) Neutrophils % Lymphocytes % Monocytes % Eosinophils % Basophils % Nucleated RBC % Anticoagulation Therapy Puncture Site ABG pH ABG pCO2 at Pt Temp ABG pO2 at Pt Temp ABG HCO3 ABG O2 Sat (Measured) ABG O2 Content ABG Base Excess Hussein Test O2 Delivery Device Oxygen Flow Rate Vent Mode Vent Rate Mechanical Rate Pressure Support Vent Sodium Potassium Chloride Carbon Dioxide Anion Gap BUN Creatinine Est GFR (CKD-EPI)AfAm Est GFR (CKD-EPI)NonAf POC Glucometer 149 160 Random Glucose Calcium Phosphorus Magnesium Total Bilirubin AST ALT Alkaline Phosphatase Ammonia 57.20 H Total Protein Albumin Active Medications Generic Name Dose Route Start Last Admin Trade Name Freq PRN Reason Stop Dose Admin Ceftriaxone Sodium 1 gm/ 50 mls @ 100 mls/hr 09/18/19 10:00 09/23/19 10:06 Dextrose IVPB 100 mls/hr DAILY [facility] Administration Protocol Insulin Aspart 1 vial 09/17/19 16:30 09/23/19 11:20 Novolog Vial Sliding Scale - SQ 2 units ACHS [facility] Administration Protocol Lactulose 20 gm 09/23/19 12:05 Cephulac (Oral Use) PO TID PRN CONSTIPATION Metoclopramide HCl 10 mg 09/20/19 15:59 Reglan Injection - IVPUSH Q8H PRN NAUSEA AND/OR VOMITING Pantoprazole Sodium 40 mg 09/23/19 10:00 09/23/19 10:08 Protonix Iv IVPUSH 40 mg BID [facility] Administration Rifaximin 200 mg 09/23/19 12:15 Xifaxan - PO BID [facility] ASSESSMENT/PLAN: 68 y/o/m with PMH of DM, HCV, cirrhosis, asthma originally presented 09/13 for altered mental status and jaundice 2/2 toxic metabolic encephalopathy. On 09/17 pt had coffee ground emesis and rectal bleeding, stat EGD was performed and he was intubated and transferred to the ICU. Repeat EGD performed on 09/21. Extubated on 09/22. #Neuro - AMS likely 2/2 toxic metabolic encephalopathy - Extubated on 09/23 - AAOx1 (self). continue to monitor #GI - Ammonia 57.2 - Started on Lactulose and Rifaxmin, titrate to 3 BMs per day - Octreotide discontinued - Protonix 40mg BID - Reglan 10mg IV Q8 - Spoke with GI, recommended placing NG/OG tube for nutrition if patient is unable to tolerate PO diet. Can start diet for NG/OG tube. - EGD 09/21: Food residue in fundus, single ulcer in antrum, multiple AVM in duodenal bulb were cauterized to achieve hemostasis - EGD 09/17: clipping/cautery of gastric antral bleeding ulcer, EGD Nov 21: No varices, mod gastropathy w/o varices, 1 small non-bleeding duodenal ulcer #Heme - 2FFP + 1Plt after EGD on 09/17 - H&H 9.5/28.1 -> 11.3/33.6 -> 9.7/28.5 - Plt at 48 #Cardio - Holding heparin d/t bleeding - QTc 506m, avoid QT prolonging medication #Pulm - Extubated on 09/22 - maintain O2 saturation >90% #Endo - BGMs - ISS #Renal - LAKEISHA, Renal function improving - Lasix PRN as per renal - Renal US 09/20: Limited study with no evidence of hydronephrosis, bladder not identified, may be empty - Myers discontinued #ID - Afebrile, WBC 4.4 -> 7.5 -> 5.3 - Continue Ceftriaxone for variceal ppx #FEN - NG/OG tube for feeds - speech/swallow eval for ability to advance PO diet. If unable to advance, recommend NGT and initiation of low volume enteral feeds (vital 1.2 @ 20cc/hr) #PPX - SCDs #Dispo - Continue to monitor in ICU Visit type - Emergency Visit Emergency Visit: Yes ED Registration Date: 09/13/19 Care time: The patient presented to the Emergency Department on the above date and was hospitalized for further evaluation of their emergent condition. - New Patient This patient is new to me today: No - Critical Care Critical Care patient: Yes Total Critical Care Time (in minutes): 36 Critical Care Statement: The care of this patient involved high complexity decision making to prevent further life threatening deterioration of the patient 's condition and/or to evaluate & treat vital organ system(s) failure or risk of failure. ATTENDING PHYSICIAN STATEMENT I saw and evaluated the patient. I reviewed the resident's note and discussed the case with the resident. I agree with the resident's findings and plan as documented. SUBJECTIVE: OBJECTIVE: ASSESSMENT AND PLAN:
--- NOTE | 2019-09-23 14:51 | CONSULT ---
Admitting History and Physical - Admission History of Present Illness: Per EMR- 68 y/o/m with PMH of DM, HCV, cirrhosis, asthma originally presented 09/13 for altered mental status and jaundice 2/2 toxic metabolic encephalopathy. On 09/17 pt had coffee ground emesis and rectal bleeding, stat EGD was performed and he was intubated and transferred to the ICU. Repeat EGD performed on 09/21. Extubated on 09/23. 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 Cardiovascular: Yes: HTN, Hyperlipdemia Pulmonary: Yes: Asthma Gastrointestinal: Yes: GI Bleed Hepatobiliary: Yes: Cirrhosis, Hepatitis C Heme/Onc: Yes: Anemia Endocrine: Yes: Diabetes Mellitus (DM II) - Past Surgical History Past Surgical History: Yes: Upper Endoscopy - Smoking History Smoking history: Former smoker Have you smoked in the past 12 months: No Aproximately how many cigarettes per day: 0 - Alcohol/Substance Use Hx Alcohol Use: No History of Substance Use: reports: Cocaine (Prior intranasal cocaine abuse) - Social History ADL: Independent 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 - Dysphagia Impressions/Plan Dysphagia Impressions: Too Lethargic to Assess (To reassess as pr becomes more alert.)
--- NOTE | 2019-09-23 16:25 | PN ---
Progress Note, Physician History of Present Illness: doing well - Current Medication List Current Medications: Active Medications Ceftriaxone Sodium 1 gm/ (Dextrose) 50 mls @ 100 mls/hr IVPB DAILY [facility]; Protocol Last Admin: 09/23/19 10:06 Dose: 100 mls/hr Insulin Aspart (Novolog Vial Sliding Scale -) 1 vial SQ ACHS [facility]; Protocol Last Admin: 09/23/19 11:20 Dose: 2 units Lactulose (Cephulac (Oral Use)) 20 gm PO TID PRN PRN Reason: CONSTIPATION Metoclopramide HCl (Reglan Injection -) 10 mg IVPUSH Q8H PRN PRN Reason: NAUSEA AND/OR VOMITING Pantoprazole Sodium (Protonix Iv) 40 mg IVPUSH BID [facility] Last Admin: 09/23/19 10:08 Dose: 40 mg Rifaximin (Xifaxan -) 200 mg PO BID [facility] - Objective Vital Signs: Vital Signs Temperature 98.7 F 09/23/19 14:00 Pulse Rate 67 09/23/19 14:00 Respiratory Rate 12 09/23/19 14:00 Blood Pressure 118/57 L 09/23/19 14:00 O2 Sat by Pulse Oximetry (%) 100 09/23/19 07:35 Constitutional: Yes: No Distress HENT: Yes: Atraumatic Neck: Yes: Supple Cardiovascular: Yes: Regular Rate and Rhythm Respiratory: Yes: CTA Bilaterally Gastrointestinal: Yes: Normal Bowel Sounds Extremities: Yes: WNL Labs: CBC, BMP 09/23/19 06:28 09/23/19 06:28 INR, PTT INR 1.25 (0.83-1.09) H 09/21/19 06:33 Fibrinogen 175.0 mg/dL (238-498) L 09/19/19 06:20 Problem List - Problems (1) Altered mental status Assessment/Plan: DOING WELL Code(s): R41.82 - ALTERED MENTAL STATUS, UNSPECIFIED Qualifiers: Altered mental status type: unspecified Qualified Code(s): R41.82 - Altered mental status, unspecified (2) Aphasia Code(s): R47.01 - APHASIA (3) Hepatic encephalopathy Assessment/Plan: alert Code(s): K72.90 - HEPATIC FAILURE, UNSPECIFIED WITHOUT COMA (4) Cirrhosis Code(s): K74.60 - UNSPECIFIED CIRRHOSIS OF LIVER Qualifiers: Hepatic cirrhosis type: unspecified hepatic cirrhosis Ascites presence: with ascites Qualified Code(s): K74.60 - Unspecified cirrhosis of liver; R18.8 - Other ascites (5) Hepatitis C Code(s): B19.20 - UNSPECIFIED VIRAL HEPATITIS C WITHOUT HEPATIC COMA Qualifiers: Viral hepatitis chronicity: chronic Hepatic coma status: without hepatic coma Qualified Code(s): B18.2 - Chronic viral hepatitis C (6) Hypertension Code(s): I10 - ESSENTIAL (PRIMARY) HYPERTENSION Qualifiers: Hypertension type: essential hypertension Qualified Code(s): I10 - Essential (primary) hypertension (7) Anemia Code(s): D64.9 - ANEMIA, UNSPECIFIED (8) Bacteremia Code(s): R78.81 - BACTEREMIA (9) GI bleeding Code(s): K92.2 - GASTROINTESTINAL HEMORRHAGE, UNSPECIFIED Assessment/Plan cc time 30 min
[2019-09-23] MEDS ORDERED: LACTULOSE 20 GM/30 ML UDC (FOR ORAL USE ONLY) NGT PRN ×2 (17:18→17:37)
--- NOTE | 2019-09-23 17:57 | PN.GI ---
GI Progress Note Subjective: no active bleeding, lethargic, NGT in place, s/p extubation - Objective Vital Signs: Vital Signs Temperature 98.7 F 09/23/19 14:00 Pulse Rate 67 09/23/19 14:00 Respiratory Rate 12 09/23/19 14:00 Blood Pressure 118/57 L 09/23/19 14:00 O2 Sat by Pulse Oximetry (%) 100 09/23/19 07:35 Constitutional: Well Nourished Eyes: Yes: Conjunctiva Clear HENT: Yes: Atraumatic Neck: Yes: Supple Cardiovascular: Yes: Regular Rate and Rhythm Respiratory: Yes: CTA Bilaterally Gastrointestinal Inspection: Yes: Ascites ...Palpate: Yes: Soft. No: Firm/Rigid, Guarding, Hepatomegaly, Mass, Pulsatile Mass, Splenomegaly ...Percussion: Yes: Tympanitic Labs: CBC, BMP 09/23/19 06:28 09/23/19 06:28 INR, PTT INR 1.25 (0.83-1.09) H 09/21/19 06:33 Fibrinogen 175.0 mg/dL (238-498) L 09/19/19 06:20 Problem List - Problems (1) Altered mental status Assessment/Plan: r/o metabolic encephalopathy/Hepatic R> continue Lactulose and xifaxan Code(s): R41.82 - ALTERED MENTAL STATUS, UNSPECIFIED Qualifiers: Altered mental status type: unspecified Qualified Code(s): R41.82 - Altered mental status, unspecified
--- NOTE | 2019-09-23 20:29 | PN ---
Progress Note, Physician History of Present Illness: 68 yo M with HTN, HLD, DM, Hep C, cirrhosis, portal HTN, PUD, asthma, admitted through ER with altered mental status and emesis, initially NBNB, then coffee ground, s/p EGD with small bleeding antral ulcer identified and clipped/ cauterized/injected. He was transferred to ICU, intubated and sedated. Was transfused multiple blood products, but H/H has been stable for over a week. Imaging was consistent with portal hypertension with ascites, splenomegaly, abdominal wall collaterals, recanalized umbilical vein. He is now extubated and being fed via NGT. He is seen and examined in ICU bed, sleeping but sitting up in bed. Family is not present. He does not react much to exam. Vitals are normal. He is on NC O2 with sats 100%. - Current Medication List Current Medications: Active Medications Ceftriaxone Sodium 1 gm/ (Dextrose) 50 mls @ 100 mls/hr IVPB DAILY [facility]; Protocol Last Admin: 09/23/19 10:06 Dose: 100 mls/hr Insulin Aspart (Novolog Vial Sliding Scale -) 1 vial SQ ACHS [facility]; Protocol Last Admin: 09/23/19 17:02 Dose: 2 units Lactulose (Cephulac (Oral Use)) 20 gm NGT TID PRN PRN Reason: CONSTIPATION Last Admin: 09/23/19 18:14 Dose: 20 gm Metoclopramide HCl (Reglan Injection -) 10 mg IVPUSH Q8H PRN PRN Reason: NAUSEA AND/OR VOMITING Pantoprazole Sodium (Protonix Iv) 40 mg IVPUSH BID [facility] Last Admin: 09/23/19 10:08 Dose: 40 mg Rifaximin (Xifaxan -) 200 mg NGT BID [facility] - Objective Vital Signs: Vital Signs Temperature 98.0 F 09/23/19 18:10 Pulse Rate 74 09/23/19 18:00 Respiratory Rate 9 L 09/23/19 19:35 Blood Pressure 125/58 L 09/23/19 18:00 O2 Sat by Pulse Oximetry (%) 100 09/23/19 19:35 Constitutional: Yes: Well Nourished, No Distress, Calm Eyes: Yes: Other (eyes closed) HENT: Yes: Atraumatic, Normocephalic, Other (NGT in place (for feeding, not sump tube) with TF running) Gastrointestinal: Yes: Soft, Ascites, Distention. No: Tenderness (none apparent ) ...Rectal Exam: Yes: Deferred Extremities: Yes: Other (wrists with blisters, skin erosions from restraints; dressings on most). No: Cool, Cyanosis Edema: Yes Edema: LUE: 2+, RUE: 2+ Wound/Incision: Yes: Dressing Dry and Intact. No: Dressing Removed (on wrists/ hands) Neurological: Yes: Unresponsive (not responsive to voice, light exam). No: Alert (sleeping comfortably) Labs: CBC, BMP 09/23/19 06:28 09/23/19 06:28 INR, PTT INR 1.25 (0.83-1.09) H 09/21/19 06:33 Fibrinogen 175.0 mg/dL (238-498) L 09/19/19 06:20 Problem List - Problems (1) Acute gastric ulcer with hemorrhage Assessment/Plan: s/p EGD with clipping, injection and cautery of gastric antral bleeding ulcer extubated in ICU s/p multiple blood product transfusions with stable H/H, still with low platelets being fed via NGT given known portal hypertension with cirrhosis, ascites, anterior abdominal wall collaterals, if surgery were necessary, would strongly consider transfer to tertiary/liver center will sign off - please re-call if needed This patient is critically ill. Time spent reviewing chart, examining patient, talking with providers and/or family and documentation is 35 minutes. Code(s): K25.0 - ACUTE GASTRIC ULCER WITH HEMORRHAGE (2) Acute blood loss anemia Assessment/Plan: stable H/H Code(s): D62 - ACUTE POSTHEMORRHAGIC ANEMIA (3) Cirrhosis Code(s): K74.60 - UNSPECIFIED CIRRHOSIS OF LIVER Qualifiers: Hepatic cirrhosis type: unspecified hepatic cirrhosis Ascites presence: with ascites Qualified Code(s): K74.60 - Unspecified cirrhosis of liver; R18.8 - Other ascites (4) Portal hypertension Code(s): K76.6 - PORTAL HYPERTENSION (5) Hepatitis C Assessment/Plan: not detected Code(s): B19.20 - UNSPECIFIED VIRAL HEPATITIS C WITHOUT HEPATIC COMA Qualifiers: Viral hepatitis chronicity: chronic Hepatic coma status: without hepatic coma Qualified Code(s): B18.2 - Chronic viral hepatitis C (6) Respiratory failure Assessment/Plan: now extubated Code(s): J96.90 - RESPIRATORY FAILURE, UNSP, UNSP W HYPOXIA OR HYPERCAPNIA Qualifiers: Chronicity: acute Respiratory failure complication: unspecified whether with hypoxia or hypercapnia Qualified Code(s): J96.00 - Acute respiratory failure, unspecified whether with hypoxia or hypercapnia (7) Hypertension Code(s): I10 - ESSENTIAL (PRIMARY) HYPERTENSION Qualifiers: Hypertension type: essential hypertension Qualified Code(s): I10 - Essential (primary) hypertension
[2019-09-23] MEDS: RIFAXIMIN 200 MG TABLET NGT SCH (23:04)
[2019-09-24] MEDS: INSULIN SLIDING SCALE (NOVOLOG) 1 VIAL SQ SCH ×4 (07:09→21:45)
[2019-09-24 07:33] LABS: HEMATOCRIT 29.6 % (35.4-49); HEMOGLOBIN 9.9 GM/dL (11.7-16.9); MCH 30.1 pg (25.7-33.7); MCHC 33.5 g/dl (32.0-35.9); PLATELET COUNT 45 K/MM3 (134-434); RBC 3.29 M/mm3 (4.00-5.60); RDW 18.3 % (11.9-15.9); WHITE BLOOD COUNT 4.5 K/mm3 (4.0-10.0)
[2019-09-24 08:20] LABS: ALBUMIN 2.6 g/dl (3.4-5.0); BILIRUBIN,TOTAL 2.1 mg/dL (0.2-1); BLOOD UREA NITROGEN 38.2 mg/dL (7-18); CALCIUM 8.5 mg/dL (8.5-10.1); CREATININE 1.4 mg/dL (0.55-1.3); MAGNESIUM 1.9 mg/dL (1.8-2.4); PHOSPHOROUS 2.9 mg/dL (2.5-4.9); POTASSIUM 4.1 mmol/L (3.5-5.1); TOT PROT 6.1 g/dl (6.4-8.2)
--- NOTE | 2019-09-24 08:36 | PN ---
Progress Note (short form) - Note Progress Note: Neurology Chief Complaint: Altered Mental Status HPI: 68 y/o M with hx of IDDM, HCV, cirrhosis, asthma presenting to the ED for altered mental status from the night prior to admission. per notes, the reported he has appeared more lethargic since evening prior and had to be woken up out of bed to take meds and eat. However he was able to be put to sleep without issues. She noted that he had a fall out of bed. The morning of admission, the patient didnt wake up and was somnolent. He also had emesis and per , reported abd pain. She also states that he hasnt had a BM in 3days despite lactulose. On arrival patient was vomiting and required suctioning. states patient had no fever, cough, SOB, chest pain, hematemesis, BPR, dysuria. CT head was completed and did not show acute changes. Of note, patient was admitted to [facility] last week for therapeutic paracentesis. Was noted to have sscleral icterus, slight jaundice. Most likely toxic metabolic encephalopathy. On labs, ammonia level normal but hemoglobin and hematocrit reduced and suspicious for anemia.GI recommended Rifaximin aand lactulose, viral hepatitis panels as well as possible endoscopy. Also mention of positive blood cultures and ID consult. Patient with postive occult stool and inquired emergent management overnight. Patient currently in ICU, after rectal bleeding, coffee ground emesis noted, pt went for STAT EGD, received multiple blood transfusions and blood products. Remains intubated and on mechanical ventilation in ICU. Continued monitoring of H/H which has stabilized, GI note reviewed and mentioned continued octeotride. Surgery note reviewed and mentioned EGD may be considered for rebleed but if surgery needed may require tertiary care facility. Currently on antibiotics, Ceftriaxone. Remains in ICU care but no longer on sedation, has been extubated since 09/22 and comfortable appearing on room air. He still is confused bbut awake and conversive, not on any drips or ventilation aand therefore may be downgraded from ICU level care. Active Medications Ceftriaxone Sodium 1 gm/ (Dextrose) 50 mls @ 100 mls/hr IVPB DAILY [facility]; Protocol Last Admin: 09/23/19 10:06 Dose: 100 mls/hr Insulin Aspart (Novolog Vial Sliding Scale -) 1 vial SQ ACHS [facility]; Protocol Last Admin: 09/24/19 07:09 Dose: 4 units Lactulose (Cephulac (Oral Use)) 20 gm NGT TID PRN PRN Reason: CONSTIPATION Last Admin: 09/23/19 18:14 Dose: 20 gm Metoclopramide HCl (Reglan Injection -) 10 mg IVPUSH Q8H PRN PRN Reason: NAUSEA AND/OR VOMITING Pantoprazole Sodium (Protonix Iv) 40 mg IVPUSH BID [facility] Last Admin: 09/23/19 23:07 Dose: 40 mg Rifaximin (Xifaxan -) 200 mg NGT BID [facility] Last Admin: 09/23/19 23:04 Dose: 200 mg *Physical Exam Vital Signs Period Temp Pulse Resp BP Sys/Shen Pulse Ox Last 24 Hr 97.8 F-98.7 F 67-75 9-20 118-146/53-76 100-100 GENERAL: sedated and on ventilation HEAD: No signs of trauma, normocephalic, atraumatic EYES: EOMI, scleral icterus, conjunctiva clear ENT: Auricles normal inspection, hearing grossly normal, nares patent, oropharynx clear without exudates. Moist mucosa NECK: Normal ROM, no lymphadenopathy LUNGS: No increased work of breathing, symmetrical chest rise, clear to auscultation bilaterally, no wheezes, crackles or rhonchi HEART: Regular rate and rhythm, normal S1 and S2, no murmurs, peripheral pulses 2+ and equal bilaterally. ABDOMEN: Soft, nondistended, nontender, normoactive bowel sounds. No guarding, no rebound. No masses. No CVAT EXTREMITIES: Normal inspection, Normal range of motion, no edema. No clubbing or cyanosis. NEUROLOGICAL: sedated and on mechanical vent, moves extremities to pain, not following commands, no abnormal movements SKIN: jaundice CBCD WBC 4.5 K/mm3 (4.0-10.0) 09/24/19 06:00 RBC 3.29 M/mm3 (4.00-5.60) L 09/24/19 06:00 Hgb 9.9 GM/dL (11.7-16.9) L 09/24/19 06:00 Hct 29.6 % (35.4-49) L 09/24/19 06:00 MCV 90.0 fl (80-96) 09/24/19 06:00 MCHC 33.5 g/dl (32.0-35.9) 09/24/19 06:00 RDW 18.3 % (11.9-15.9) H 09/24/19 06:00 Plt Count 45 K/MM3 (134-434) L 09/24/19 06:00 MPV 9.0 fl (7.5-11.1) 09/24/19 06:00 CMP Sodium 147 mmol/L (136-145) H 09/24/19 06:00 Potassium 4.1 mmol/L (3.5-5.1) 09/24/19 06:00 Chloride 118 mmol/L (98-107) H 09/24/19 06:00 Carbon Dioxide 25 mmol/L (21-32) 09/24/19 06:00 Anion Gap 4 MMOL/L (8-16) L 09/24/19 06:00 BUN 38.2 mg/dL (7-18) H 09/24/19 06:00 Creatinine 1.4 mg/dL (0.55-1.3) H 09/24/19 06:00 Random Glucose 223 mg/dL (74-106) H 09/24/19 06:00 Calcium 8.5 mg/dL (8.5-10.1) 09/24/19 06:00 Total Bilirubin 2.1 mg/dL (0.2-1) H 09/24/19 06:00 AST 39 U/L (15-37) H 09/24/19 06:00 ALT 23 U/L (13-61) 09/24/19 06:00 Alkaline Phosphatase 160 U/L (45-117) H 09/24/19 06:00 Total Protein 6.1 g/dl (6.4-8.2) L 09/24/19 06:00 Albumin 2.6 g/dl (3.4-5.0) L 09/24/19 06:00 CARDIAC ENZYMES Creatine Kinase 268 U/L (26-308) 09/13/19 12:45 Troponin I < 0.02 ng/ml (0.00-0.05) 09/13/19 12:45 Medical Decision Making 68 y/o M with hx of IDDM, HCV, cirrhosis, asthma presenting to the ED for altered mental status from the night prior to admission. per notes, the reported he has appeared more lethargic since evening prior and had to be woken up out of bed to take meds and eat. However he was able to be put to sleep without issues. She noted that he had a fall out of bed. The morning of admission, the patient didnt wake up and was somnolent. He also had emesis and per , reported abd pain. She also states that he hasnt had a BM in 3days despite lactulose. On arrival patient was vomiting and required suctioning. states patient had no fever, cough, SOB, chest pain, hematemesis, BPR, dysuria. CT head was completed and did not show acute changes. Of note, patient was admitted to [facility] last week for therapeutic paracentesis. Was noted to have sscleral icterus, slight jaundice. Most likely toxic metabolic encephalopathy. On labs, ammonia level normal but hemoglobin and hematocrit reduced and suspicious for anemia. Reviewed notes including from GI recommended Rifaximin aand lactulose, viral hepatitis panels as well as possible endoscopy. Also mention of positive blood cultures and ID consult. Patient with postive occult stool and inquired emergent management overnight. Patient currently in ICU, after rectal bleeding, coffee ground emesis noted, pt went for STAT EGD, received multiple blood transfusions and blood products. Remains intubated and on mechanical ventilation in ICU. Continued monitoring of H/H which has stabilized, GI note reviewed and mentioned continued octeotride. Surgery note reviewed and mentioned EGD may be considered for rebleed but if surgery needed may require tertiary care facility. Remains in ICU care but no longer on sedation, has been extubated since 09/22 and comfortable appearing on room air. He still is confused bbut awake and conversive, not on any drips or ventilation aand therefore may be downgraded from ICU level care. Continue GI and hematologic optimization. Monitor H and H, tranfuse as needed. Continue to monitor mental status. Continue Abx as per primary. Critical care time 35 mins. (
--- NOTE | 2019-09-24 08:58 | PN ---
Progress Note, Physician History of Present Illness: GI FOLLOW UP NOTE Patient examined and case discussed with Dr Fish Patient is extubated with NGT in place with feedings infusing. No reports of residuals noted with feeds. RN reports no rectal bleeding or melena. Patient is awake and responsive to questions. Denies nausea, vomiting, diarrhea, constipation, abdominal pain. - Current Medication List Current Medications: Active Medications Ceftriaxone Sodium 1 gm/ (Dextrose) 50 mls @ 100 mls/hr IVPB DAILY [facility]; Protocol Last Admin: 09/23/19 10:06 Dose: 100 mls/hr Insulin Aspart (Novolog Vial Sliding Scale -) 1 vial SQ ACHS [facility]; Protocol Last Admin: 09/24/19 07:09 Dose: 4 units Lactulose (Cephulac (Oral Use)) 20 gm NGT TID PRN PRN Reason: CONSTIPATION Last Admin: 09/23/19 18:14 Dose: 20 gm Metoclopramide HCl (Reglan Injection -) 10 mg IVPUSH Q8H PRN PRN Reason: NAUSEA AND/OR VOMITING Pantoprazole Sodium (Protonix Iv) 40 mg IVPUSH BID [facility] Last Admin: 09/23/19 23:07 Dose: 40 mg Rifaximin (Xifaxan -) 200 mg NGT BID [facility] Last Admin: 09/23/19 23:04 Dose: 200 mg - Objective Vital Signs: Vital Signs Temperature 98.2 F 09/24/19 04:00 Pulse Rate 75 09/24/19 08:00 Respiratory Rate 18 09/24/19 08:00 Blood Pressure 139/73 09/24/19 08:00 O2 Sat by Pulse Oximetry (%) 100 09/23/19 19:35 Constitutional: Yes: No Distress, Calm Eyes: Yes: Conjunctiva Clear HENT: Yes: Atraumatic Cardiovascular: Yes: Regular Rate and Rhythm Respiratory: Yes: Regular, Diminished, On Nasal O2 Gastrointestinal: Yes: Normal Bowel Sounds, Soft Genitourinary: Yes: Incontinence Neurological: Yes: Alert Psychiatric: Yes: Alert Labs: CBC, BMP 09/24/19 06:00 09/24/19 06:00 INR, PTT INR 1.25 (0.83-1.09) H 09/21/19 06:33 Fibrinogen 175.0 mg/dL (238-498) L 09/19/19 06:20 Problem List - Problems (1) GI bleeding Assessment/Plan: >Pantoprazole BID >repeat EGD done on 09/21 Code(s): K92.2 - GASTROINTESTINAL HEMORRHAGE, UNSPECIFIED (2) Altered mental status Assessment/Plan: >Lactulose and Xifaxin Code(s): R41.82 - ALTERED MENTAL STATUS, UNSPECIFIED Qualifiers: Altered mental status type: unspecified Qualified Code(s): R41.82 - Altered mental status, unspecified
[2019-09-24] MEDS ORDERED: PT OWN MED DRAWER 7, Y5N ONE (09:35)
[2019-09-24] MEDS ORDERED: cefTRIAXone SODIUM 1 GM VIAL ONE (09:35)
[2019-09-24] MEDS ORDERED: DEXTROSE 5%-WATER - 50 ML IVPB ONE (09:36)
[2019-09-24] MEDS: CEFTRIAXONE 1 GM in DEXTROSE 5%-WATER - 50 ML IVPB SCH (10:10)
[2019-09-24] MEDS: PANTOPRAZOLE SODIUM 40 MG VIAL IVPUSH SCH ×2 (10:10→21:45)
[2019-09-24] MEDS: RIFAXIMIN 200 MG TABLET NGT SCH (11:05)
--- NOTE | 2019-09-24 11:12 | PN ---
Physical Exam: SUBJECTIVE: Patient seen and examined. More alert today than yesterday. Patient had NG tube placed yesterday but pulled it out today by himself. Will have speech/swallow re-evaluate patient to start PO diet. Still confused, oriented to self, knows that he is in a hospital. OBJECTIVE: Vital Signs Period Temp Pulse Resp BP Sys/Shen Pulse Ox Last 24 Hr 97.8 F-98.7 F 67-75 9-20 118-147/53-76 100-100 GENERAL: The patient is awake, alert, in no acute distress. HEAD: Normal with no signs of trauma. EYES: PERRL, EOMI, no scleral icterus ENT: dry mucous membranes NECK: Trachea midline, full range of motion, supple. LUNGS: Breath sounds equal, clear to auscultation bilaterally, no wheezes, no crackles, no accessory muscle use. HEART:RRR, s1, s2 ABDOMEN: Soft, nontender, nondistended, normoactive bowel sounds, no guarding, no rebound, negative fluid wave EXTREMITIES: 2+ pulses, warm. 1+ non pitting edema bilateral lower extremities. NEUROLOGICAL: Improving speech. Oriented to self. Knows that he is in a hospital. Still somewhat confused. Laboratory Results - last 24 hr 09/23/19 09/23/19 09/24/19 11:11 16:41 02:41 WBC RBC Hgb Hct MCV MCH MCHC RDW Plt Count MPV Sodium Potassium Chloride Carbon Dioxide Anion Gap BUN Creatinine Est GFR (CKD-EPI)AfAm Est GFR (CKD-EPI)NonAf POC Glucometer 160 158 205 Random Glucose Calcium Phosphorus Magnesium Total Bilirubin AST ALT Alkaline Phosphatase Total Protein Albumin 09/24/19 09/24/19 09/24/19 06:00 06:00 06:16 WBC 4.5 RBC 3.29 L Hgb 9.9 L Hct 29.6 L MCV 90.0 MCH 30.1 MCHC 33.5 RDW 18.3 H Plt Count 45 L MPV 9.0 Sodium 147 H Potassium 4.1 Chloride 118 H Carbon Dioxide 25 Anion Gap 4 L BUN 38.2 H Creatinine 1.4 H Est GFR (CKD-EPI)AfAm 58.58 Est GFR (CKD-EPI)NonAf 50.54 POC Glucometer 223 Random Glucose 223 H Calcium 8.5 Phosphorus 2.9 Magnesium 1.9 Total Bilirubin 2.1 H AST 39 H ALT 23 Alkaline Phosphatase 160 H Total Protein 6.1 L Albumin 2.6 L Active Medications Generic Name Dose Route Start Last Admin Trade Name Freq PRN Reason Stop Dose Admin Ceftriaxone Sodium 1 gm/ 50 mls @ 100 mls/hr 09/18/19 10:00 09/24/19 10:10 Dextrose IVPB 100 mls/hr DAILY [facility] Administration Protocol Insulin Aspart 1 vial 09/17/19 16:30 09/24/19 07:09 Novolog Vial Sliding Scale - SQ 4 units ACHS [facility] Administration Protocol Lactulose 20 gm 09/23/19 17:37 09/23/19 18:14 Cephulac (Oral Use) NGT 20 gm TID PRN Administration CONSTIPATION Metoclopramide HCl 10 mg 09/20/19 15:59 Reglan Injection - IVPUSH Q8H PRN NAUSEA AND/OR VOMITING Pantoprazole Sodium 40 mg 09/23/19 10:00 09/24/19 10:10 Protonix Iv IVPUSH 40 mg BID [facility] Administration Rifaximin 200 mg 09/23/19 22:00 09/24/19 11:05 Xifaxan - NGT 200 mg BID [facility] Administration ASSESSMENT/PLAN: 68 y/o/m with PMH of DM, HCV, cirrhosis, asthma originally presented 09/13 for altered mental status and jaundice 2/2 toxic metabolic encephalopathy. On 09/17 pt had coffee ground emesis and rectal bleeding, stat EGD was performed and he was intubated and transferred to the ICU. Repeat EGD performed on 09/21. Extubated on 09/22. #Neuro - AMS likely 2/2 toxic metabolic encephalopathy - Extubated on 09/23 - AAOx1 (self). continue to monitor #GI - Continue Lactulose and Rifaxmin, titrate to 3 BMs per day - Octreotide discontinued - Protonix 40mg BID - Reglan 10mg IV Q8 - NG tube placed 09/23. Patient pulled NG today. Will have speech/swallow re- evaluate patient today for PO intake. 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 Increase free water intake - Renal US 09/20: Limited study with no evidence of hydronephrosis, bladder not identified, may be empty - Myers discontinued #ID - Afebrile, WBC 4.4 -> 7.5 -> 5.3 -> 4.5 - Continue Ceftriaxone for variceal ppx #FEN - Speech/swallow re-evaluation today. Patient was sleepy during evaluation and therefore evaluation was deferred. However, patient later passed bedside swallow evaluation with apple sauce. #PPX - SCDs #Dispo - Stable for transfer to telemetry Visit type - Emergency Visit Emergency Visit: Yes ED Registration Date: 09/13/19 Care time: The patient presented to the Emergency Department on the above date and was hospitalized for further evaluation of their emergent condition. - New Patient This patient is new to me today: No - Critical Care Critical Care patient: Yes Total Critical Care Time (in minutes): 36 Critical Care Statement: The care of this patient involved high complexity decision making to prevent further life threatening deterioration of the patient 's condition and/or to evaluate & treat vital organ system(s) failure or risk of failure. ATTENDING PHYSICIAN STATEMENT I saw and evaluated the patient. I reviewed the resident's note and discussed the case with the resident. I agree with the resident's findings and plan as documented. SUBJECTIVE: OBJECTIVE: ASSESSMENT AND PLAN:
--- NOTE | 2019-09-24 11:20 | PN ---
Teaching Attending Note Name of Resident: Jonah Kat ATTENDING PHYSICIAN STATEMENT I saw and evaluated the patient. I reviewed the resident's note and discussed the case with the resident. I agree with the resident's findings and plan as documented. SUBJECTIVE: Patient seen and examined in the ICU. Remains extubated. More awake and alert. Able to tell me his name and that he is in the hospital. Asking for food. Intake & Output 09/21/19 09/22/19 09/23/19 09/24/19 23:59 23:59 23:59 23:59 Intake Total 1124.1 809.4 550 420 Output Total 1640 2550 2304 2 Balance -515.9 -1740.6 -1754 418 Weight 207 lb 3.2 oz 199 lb 5 oz 191 lb 3.2 oz 190 lb 8 oz Last Vital Signs Temp Pulse Resp BP Pulse Ox 97.8 F 67 18 147/62 100 09/24/19 10:00 09/24/19 10:00 09/24/19 10:00 09/24/19 10:00 09/23/19 19:35 Active Medications Ceftriaxone Sodium 1 gm/ (Dextrose) 50 mls @ 100 mls/hr IVPB DAILY [facility]; Protocol Last Admin: 09/24/19 10:10 Dose: 100 mls/hr Insulin Aspart (Novolog Vial Sliding Scale -) 1 vial SQ ACHS [facility]; Protocol Last Admin: 09/24/19 07:09 Dose: 4 units Lactulose (Cephulac (Oral Use)) 20 gm NGT TID PRN PRN Reason: CONSTIPATION Last Admin: 09/23/19 18:14 Dose: 20 gm Metoclopramide HCl (Reglan Injection -) 10 mg IVPUSH Q8H PRN PRN Reason: NAUSEA AND/OR VOMITING Pantoprazole Sodium (Protonix Iv) 40 mg IVPUSH BID [facility] Last Admin: 09/24/19 10:10 Dose: 40 mg Rifaximin (Xifaxan -) 200 mg NGT BID [facility] Last Admin: 09/24/19 11:05 Dose: 200 mg Gen: Awake and responsive, mildly confused Heart: RRR Lung: decreased breath sounds at the bases, bilateral rhonchi Abd: soft, nontender Ext: + edema ASSESSMENT AND PLAN: s/p Acute Respiratory Failure GI Bleed Acute Blood Loss Anemia Gastric Ulcer/Duodenal AVM s/p Clipping/Cautery/Epi injection Hepatic Encephalopathy Liver Cirrhosis Thrombocytopenia/Coagulopathy CKD Volume Overlad HTN - Swallow evaluation - Aspiration precautions - continue protonix, octreotide per GI - NGT - monitor H/H - Lasix today - monitor urine output, creatinine - On empiric antibiotics - Lactulose - DVT prophylaxis - 4W / 4S monitoring Dr Rodriguez
[2019-09-24] MEDS ORDERED: FUROSEMIDE 40 MG/4 ML INJECTABLE VIAL IVPUSH ONE (11:53)
--- NOTE | 2019-09-24 13:00 | PN ---
Progress Note, Physician History of Present Illness: Pt seen and examined at bedside. He is more awake today. He denies shortness of breath. - Current Medication List Current Medications: Active Medications Ceftriaxone Sodium 1 gm/ (Dextrose) 50 mls @ 100 mls/hr IVPB DAILY [facility]; Protocol Last Admin: 09/24/19 10:10 Dose: 100 mls/hr Insulin Aspart (Novolog Vial Sliding Scale -) 1 vial SQ ACHS [facility]; Protocol Last Admin: 09/24/19 12:11 Dose: Not Given Metoclopramide HCl (Reglan Injection -) 10 mg IVPUSH Q8H PRN PRN Reason: NAUSEA AND/OR VOMITING Pantoprazole Sodium (Protonix Iv) 40 mg IVPUSH BID [facility] Last Admin: 09/24/19 10:10 Dose: 40 mg - Objective Vital Signs: Vital Signs Temperature 97.8 F 09/24/19 10:00 Pulse Rate 73 09/24/19 12:00 Respiratory Rate 19 09/24/19 12:00 Blood Pressure 135/70 09/24/19 12:00 O2 Sat by Pulse Oximetry (%) 100 09/24/19 10:00 Constitutional: Yes: Calm Eyes: Yes: Conjunctiva Clear HENT: Yes: Atraumatic Neck: Yes: Supple Cardiovascular: Yes: S1, S2 Respiratory: Yes: On Nasal O2 Gastrointestinal: Yes: Soft Genitourinary: Yes: Incontinence Musculoskeletal: Yes: Muscle Weakness Edema: No Neurological: Yes: Confusion Labs: CBC, BMP 09/24/19 06:00 09/24/19 06:00 INR, PTT INR 1.25 (0.83-1.09) H 09/21/19 06:33 Fibrinogen 175.0 mg/dL (238-498) L 09/19/19 06:20 Assessment/Plan Current Medications Generic Name Dose Route Start Last Admin Trade Name Freq PRN Reason Stop Dose Admin Ceftriaxone Sodium 1 gm/ 50 mls @ 100 mls/hr 09/18/19 10:00 09/24/19 10:10 Dextrose IVPB 100 mls/hr DAILY [facility] Administration Protocol Insulin Aspart 1 vial 09/17/19 16:30 09/24/19 12:11 Novolog Vial Sliding Scale - SQ Not Given ACHS [facility] Protocol Metoclopramide HCl 10 mg 09/20/19 15:59 Reglan Injection - IVPUSH Q8H PRN NAUSEA AND/OR VOMITING Pantoprazole Sodium 40 mg 09/23/19 10:00 09/24/19 10:10 Protonix Iv IVPUSH 40 mg BID [facility] Administration Impression 1. LAKEISHA 2. dm 3. gi bleed 4. resp failure 5. hep c 6. liver cirrhosos 7. hypernatremia Plan - lasix as needed - sodium is rising, cont to monitor, will need to increase free water intake - volume status improving - pt extubated - monitor urine output
--- NOTE | 2019-09-24 14:36 | PN ---
Progress Note, [employer] - Note Progress Note: Selected Entries 09/24/19 09/24/19 04:00 10:00 Lunch NPO Temperature 98.2 F 97.8 F Laboratory Tests 09/23/19 09/24/19 06:28 06:00 WBC 5.3 4.5 Asked to reassess pt's swallowing as pt pulled out NGT and was more alert this am. With much verbal directives and tactil stimulation, pt could not keep eyes open for 2 seconds. High risk of aspiration due to lethargy. Consider re-insertion of NGT until more alert.
--- NOTE | 2019-09-24 17:01 | PN ---
Progress Note, Physician Chief Complaint: Extubated off O2, off octreotide and Protonix gtt, remains on Protonix IV bid. Mental status improved. - Current Medication List Current Medications: Active Medications Ceftriaxone Sodium 1 gm/ (Dextrose) 50 mls @ 100 mls/hr IVPB DAILY [facility]; Protocol Last Admin: 09/24/19 10:10 Dose: 100 mls/hr Insulin Aspart (Novolog Vial Sliding Scale -) 1 vial SQ ACHS [facility]; Protocol Last Admin: 09/24/19 12:11 Dose: Not Given Metoclopramide HCl (Reglan Injection -) 10 mg IVPUSH Q8H PRN PRN Reason: NAUSEA AND/OR VOMITING Pantoprazole Sodium (Protonix Iv) 40 mg IVPUSH BID [facility] Last Admin: 09/24/19 10:10 Dose: 40 mg - Objective Vital Signs: Vital Signs Temperature 98 F 09/24/19 14:00 Pulse Rate 70 09/24/19 14:00 Respiratory Rate 18 09/24/19 14:00 Blood Pressure 139/77 09/24/19 14:00 O2 Sat by Pulse Oximetry (%) 100 09/24/19 10:00 Constitutional: Yes: No Distress, Calm Neck: Yes: Supple Cardiovascular: Yes: Regular Rate and Rhythm Respiratory: Yes: Regular, Diminished, On Nasal O2 Gastrointestinal: Yes: Soft, Hypoactive Bowel Sounds Edema: No Labs: CBC, BMP 09/24/19 06:00 09/24/19 06:00 INR, PTT INR 1.25 (0.83-1.09) H 09/21/19 06:33 Fibrinogen 175.0 mg/dL (238-498) L 09/19/19 06:20 - ....Imaging Chest X-ray: Report Reviewed (Congestion) Assessment/Plan 09/20/2019 Echo: Normal LV size with low normal LV fxn, LVEF 50-55%, mild GREG, mild MR, TR - Problems (1) Altered mental status Code(s): R41.82 - ALTERED MENTAL STATUS, UNSPECIFIED Qualifiers: Altered mental status type: unspecified Qualified Code(s): R41.82 - Altered mental status, unspecified Toxix-metabolic/hepatic encephelopathy (2) Anemia Code(s): D64.9 - ANEMIA, UNSPECIFIED (3) GI bleeding Assessment/Plan: s/p EGD showing gastric ulcer s/p clipping, duodenal AVM post cautery No further fresh bleed noted on irrigation, serial CBC, PLT Completed octreotide and protonix gtt, empiric abx Code(s): K92.2 - GASTROINTESTINAL HEMORRHAGE, UNSPECIFIED (4) Hepatic encephalopathy Code(s): K72.90 - HEPATIC FAILURE, UNSPECIFIED WITHOUT COMA (5) Cirrhosis Code(s): K74.60 - UNSPECIFIED CIRRHOSIS OF LIVER Qualifiers: Hepatic cirrhosis type: unspecified hepatic cirrhosis Ascites presence: with ascites Qualified Code(s): K74.60 - Unspecified cirrhosis of liver; R18.8 - Other ascites (6) Hepatitis C Code(s): B19.20 - UNSPECIFIED VIRAL HEPATITIS C WITHOUT HEPATIC COMA Qualifiers: Viral hepatitis chronicity: chronic Hepatic coma status: without hepatic coma Qualified Code(s): B18.2 - Chronic viral hepatitis C (7) Hypertension Code(s): I10 - ESSENTIAL (PRIMARY) HYPERTENSION Qualifiers: Hypertension type: essential hypertension Qualified Code(s): I10 - Essential (primary) hypertension (8) LBBB (left bundle branch block) Assessment/Plan: EKG: NSR; LBBB (no change from June EKG) TNI < 0.02; f/u serially. TSH WNL. ECHO 11/2018: technically limitied study: normal LVEF; mild TR; unable to assess RV. No prior coronary workup noted. Check outpatient records. Code(s): I44.7 - LEFT BUNDLE-BRANCH BLOCK, UNSPECIFIED 1. s/p Acute respiratory failure 2. Acute blood loss Anemia with GI bleed and gastric ulcer, duodenal AVM s/p clipping and cautery 3. Hepatic encephalopathy and cirrhosis 4. Hepatitis C 5. HTN 6. LBBB 7. CKD 8. Thrombocytopenia/Coagulopathy PLAN: 1. Wean FIO2 as tolerated, diuretics as needed with monitor diuretic response, renal fxn and electrolytes 2. Protonix IV, monitor Hgb, Plt, trend LFTs, started lactulose 3. Empiric antibiotics 4. Mechanical VTE prophylaxis 5. Swallow evaluation, Aspiration precautions
--- NOTE | 2019-09-24 20:51 | PN ---
Progress Note, Physician History of Present Illness: extubated - Current Medication List Current Medications: Active Medications Ceftriaxone Sodium 1 gm/ (Dextrose) 50 mls @ 100 mls/hr IVPB DAILY [facility]; Protocol Last Admin: 09/24/19 10:10 Dose: 100 mls/hr Insulin Aspart (Novolog Vial Sliding Scale -) 1 vial SQ ACHS [facility]; Protocol Last Admin: 09/24/19 17:08 Dose: Not Given Lactulose (Cephulac (Oral Use)) 20 gm PO QID [facility] Metoclopramide HCl (Reglan Injection -) 10 mg IVPUSH Q8H PRN PRN Reason: NAUSEA AND/OR VOMITING Pantoprazole Sodium (Protonix Iv) 40 mg IVPUSH BID [facility] Last Admin: 09/24/19 10:10 Dose: 40 mg Rifaximin (Xifaxan -) 200 mg PO TID [facility] - Objective Vital Signs: Vital Signs Temperature 98 F 09/24/19 14:00 Pulse Rate 70 09/24/19 14:00 Respiratory Rate 18 09/24/19 19:41 Blood Pressure 129/61 09/24/19 19:41 O2 Sat by Pulse Oximetry (%) 100 09/24/19 10:00 Constitutional: Yes: No Distress HENT: Yes: Atraumatic Neck: Yes: Supple Cardiovascular: Yes: Regular Rate and Rhythm Respiratory: Yes: CTA Bilaterally Gastrointestinal: Yes: Normal Bowel Sounds Extremities: Yes: WNL Edema: No Neurological: Yes: Alert, Oriented Labs: CBC, BMP 09/24/19 06:00 09/24/19 06:00 INR, PTT INR 1.25 (0.83-1.09) H 09/21/19 06:33 Fibrinogen 175.0 mg/dL (238-498) L 09/19/19 06:20 Problem List - Problems (1) Altered mental status Assessment/Plan: awake Code(s): R41.82 - ALTERED MENTAL STATUS, UNSPECIFIED Qualifiers: Altered mental status type: unspecified Qualified Code(s): R41.82 - Altered mental status, unspecified (2) Aphasia Code(s): R47.01 - APHASIA (3) Hepatic encephalopathy Assessment/Plan: alert Code(s): K72.90 - HEPATIC FAILURE, UNSPECIFIED WITHOUT COMA (4) Cirrhosis Code(s): K74.60 - UNSPECIFIED CIRRHOSIS OF LIVER Qualifiers: Hepatic cirrhosis type: unspecified hepatic cirrhosis Ascites presence: with ascites Qualified Code(s): K74.60 - Unspecified cirrhosis of liver; R18.8 - Other ascites (5) Hepatitis C Code(s): B19.20 - UNSPECIFIED VIRAL HEPATITIS C WITHOUT HEPATIC COMA Qualifiers: Viral hepatitis chronicity: chronic Hepatic coma status: without hepatic coma Qualified Code(s): B18.2 - Chronic viral hepatitis C (6) Hypertension Code(s): I10 - ESSENTIAL (PRIMARY) HYPERTENSION Qualifiers: Hypertension type: essential hypertension Qualified Code(s): I10 - Essential (primary) hypertension (7) Anemia Assessment/Plan: s/p egd s/p prbc transfusion Code(s): D64.9 - ANEMIA, UNSPECIFIED (8) Bacteremia Assessment/Plan: d/w id no need for abx Code(s): R78.81 - BACTEREMIA (9) GI bleeding Assessment/Plan: h/h stable Code(s): K92.2 - GASTROINTESTINAL HEMORRHAGE, UNSPECIFIED Assessment/Plan cc time 30 min
[2019-09-24] MEDS: RIFAXIMIN 200 MG TABLET PO SCH (21:42)
[2019-09-24] MEDS: LACTULOSE 20 GM/30 ML UDC (FOR ORAL USE ONLY) PO SCH (21:45)
[2019-09-24] MEDS ORDERED: METOCLOPRAMIDE HCL INJECTION 10 MG/2 ML VIAL IVPUSH PRN (23:22)
[2019-09-25] MEDS: RIFAXIMIN 200 MG TABLET PO SCH ×3 (06:34→22:16)
--- NOTE | 2019-09-25 07:08 | PN ---
Progress Note (short form) - Note Progress Note: Chief Complaint: Events noted, notes reviewed, denies any chest pain or dyspnea , sinus rhythm with IVCD noted on monitor History of Present Illness: Seen and examined on telemetry. Events noted, notes reviewed, denies any chest pain or dyspnea, sinus rhythm with IVCD noted on monitor Evidence of visual coronary artery calcification on CT scan of the abdomen performed recently- image review - Current Medication List Current Medications Ceftriaxone Sodium 1 gm/ (Dextrose) 50 mls @ 100 mls/hr IVPB DAILY [facility]; Protocol Insulin Aspart (Novolog Vial Sliding Scale -) 1 vial SQ ACHS [facility]; Protocol Lactulose (Cephulac (Oral Use)) 20 gm PO QID [facility] Last Admin: 09/24/19 21:45 Dose: 20 gm Metoclopramide HCl (Reglan Injection -) 10 mg IVPUSH Q8H PRN PRN Reason: NAUSEA AND/OR VOMITING Pantoprazole Sodium (Protonix Iv) 40 mg IVPUSH BID [facility] Rifaximin (Xifaxan -) 200 mg PO TID [facility] Last Admin: 09/25/19 06:34 Dose: 200 mg Review of Systems Cardiovascular: As noted above Respiratory: denies: Cough or Sputum Production Gastrointestinal: denies: Nausea, Vomiting, Diarrhea, Constipation or Abdominal Discomfort Musculoskeletal: No Symptoms Reported Endocrine: No Symptoms Reported` - Objective Vital Signs: Last Vital Signs Temp Pulse Resp BP Pulse Ox 98.0 F 70 73 H 142/70 100 09/25/19 06:00 09/24/19 14:00 09/25/19 06:00 09/25/19 06:00 09/24/19 22:34 Intake & Output 09/22/19 09/23/19 09/24/19 09/25/19 23:59 23:59 23:59 23:59 Intake Total 809.4 550 650 Output Total 2550 2304 2 Balance -1740.6 -1754 648 Weight 199 lb 5 oz 191 lb 3.2 oz 190 lb 8 oz 184 lb Neck: Supple Negative JVD No Bruit Respiratory: Diminished Breath Sounds Bases Bilaterally Cardiovascular: S1 S2 Regular Rate and Rhythm Gastrointestinal: Soft Benign Normal Bowel Sounds Ext: No Edema Labs: CBC, BMP 09/25/19 06:00 CBC, BMP 09/24/19 06:00 09/24/19 06:00 Hepatic Panel Total Bilirubin 2.1 mg/dL (0.2-1) H 09/24/19 06:00 Direct Bilirubin 1.2 mg/dL (0.0-0.2) H 09/19/19 06:20 AST 39 U/L (15-37) H 09/24/19 06:00 ALT 23 U/L (13-61) 09/24/19 06:00 Alkaline Phosphatase 160 U/L (45-117) H 09/24/19 06:00 Albumin 2.6 g/dl (3.4-5.0) L 09/24/19 06:00 INR, PTT INR 1.25 (0.83-1.09) H 09/21/19 06:33 Fibrinogen 175.0 mg/dL (238-498) L 09/19/19 06:20 Assessment/Plan ASSESSMENT: 1. Post acute respiratory failure 2. Acute blood loss Anemia/GI bleed- gastric ulcer, duodenal AVM post clipping and cautery 3. Coronary artery disease/visual coronary artery calcification angina pectoris , stable clinically 4. Diastolic LV dysfunction with clinical class 0 NYHA classification LV failure 5. HTN 6. CLBBB 7. Hepatic encephalopathy and cirrhosis 8. Hepatitis C 9. CKD 10. Thrombocytopenia/Coagulopathy related to above noted chronic liver disease 11. Hypernatremia PLAN: 1. Recommend the addition of Nadolol 40 mg daily if not contraindicated- CAD and probable portal HTN 2. Not a candidate for anti- platelet agent therapy/Thrombocytopenia 3. Antibiotics as per primary team 4. Continue PPI Sandie Sy M.D.
[2019-09-25 07:17] LABS: HEMATOCRIT 30.7 % (35.4-49); HEMOGLOBIN 10.4 GM/dL (11.7-16.9); MCH 30.2 pg (25.7-33.7); MCHC 33.7 g/dl (32.0-35.9); MEAN CELL VOLUME 89.4 fl (80-96); MEAN PLT VOLUME 8.9 fl (7.5-11.1); PLATELET COUNT 46 K/MM3 (134-434); RBC 3.43 M/mm3 (4.00-5.60); RDW 17.9 % (11.9-15.9); WHITE BLOOD COUNT 4.2 K/mm3 (4.0-10.0)
[2019-09-25 07:49] LABS: ALBUMIN 2.9 g/dl (3.4-5.0); BILIRUBIN,TOTAL 3.3 mg/dL (0.2-1); BLOOD UREA NITROGEN 42.3 mg/dL (7-18); CREATININE 1.2 mg/dL (0.55-1.3); MAGNESIUM 1.9 mg/dL (1.8-2.4); PHOSPHOROUS 2.7 mg/dL (2.5-4.9); POTASSIUM 3.7 mmol/L (3.5-5.1); TOT PROT 6.6 g/dl (6.4-8.2)
[2019-09-25] MEDS: INSULIN SLIDING SCALE (NOVOLOG) 1 VIAL SQ SCH ×4 (07:55→22:15)
[2019-09-25] MEDS ORDERED: cefTRIAXone SODIUM 1 GM VIAL ONE (08:44)
[2019-09-25] MEDS ORDERED: DEXTROSE 5%-WATER - 50 ML IVPB ONE (08:44)
[2019-09-25] MEDS: PANTOPRAZOLE SODIUM 40 MG VIAL IVPUSH SCH ×2 (09:02→22:16)
[2019-09-25] MEDS: LACTULOSE 20 GM/30 ML UDC (FOR ORAL USE ONLY) PO SCH ×4 (09:02→22:15)
[2019-09-25] MEDS: CEFTRIAXONE 1 GM in DEXTROSE 5%-WATER - 50 ML IVPB SCH (09:02)
--- NOTE | 2019-09-25 11:00 | PN ---
Progress Note (short form) - Note Progress Note: PULMONARY Mental status appears improved. Denies shortness of breath. Vital Signs Period Temp Pulse Resp BP Sys/Shen Pulse Ox Last 24 Hr 98 F-98.2 F 63-73 11 126-145/51-77 100-100 Gen: NAD at rest Heart: RRR Lung: decreased breath sounds at the bases Abd: soft, nontender Ext: no edema CBC, BMP 09/25/19 06:00 09/25/19 06:00 Active Medications Ceftriaxone Sodium 1 gm/ (Dextrose) 50 mls @ 100 mls/hr IVPB DAILY [facility]; Protocol Last Admin: 09/25/19 09:02 Dose: 100 mls/hr Insulin Aspart (Novolog Vial Sliding Scale -) 1 vial SQ ACHS [facility]; Protocol Last Admin: 09/25/19 07:55 Dose: 2 units Lactulose (Cephulac (Oral Use)) 20 gm PO QID [facility] Last Admin: 09/25/19 09:02 Dose: 20 gm Metoclopramide HCl (Reglan Injection -) 10 mg IVPUSH Q8H PRN PRN Reason: NAUSEA AND/OR VOMITING Pantoprazole Sodium (Protonix Iv) 40 mg IVPUSH BID [facility] Last Admin: 09/25/19 09:02 Dose: 40 mg Rifaximin (Xifaxan -) 200 mg PO TID [facility] Last Admin: 09/25/19 06:34 Dose: 200 mg A/P s/p Acute Respiratory Failure GI Bleed Acute Blood Loss Anemia Gastric Ulcer/Duodenal AVM s/p Clipping/Cautery/Epi injection Hepatic Encephalopathy Liver Cirrhosis Thrombocytopenia/Coagulopathy CKD Volume Overlad HTN - continue protonix - monitor H/H - lasix as needed - monitor urine output, creatinine - on empiric antibiotics - lactulose, rifaximin - aspiration precautions - DVT prophylaxis
[2019-09-25] MEDS ORDERED: PT OWN MED DRAWER 7, Y5N ONE ×3 (13:07→22:07)
--- NOTE | 2019-09-25 13:32 | PN ---
Progress Note (short form) - Note Progress Note: A/P s/p Acute Respiratory Failure GI Bleed Acute Blood Loss Anemia Gastric Ulcer/Duodenal AVM s/p Clipping/Cautery/Epi injection Hepatic Encephalopathy Liver Cirrhosis Thrombocytopenia/Coagulopathy CKD Volume Overlad HTN Last Vital Signs Temp Pulse Resp BP Pulse Ox 98.1 F 72 12 125/67 100 09/25/19 10:00 09/25/19 12:00 09/25/19 12:00 09/25/19 12:00 09/25/19 09:08 edema LUE abd tense (ascites?) not very distended CBC, BMP 09/25/19 06:00 09/25/19 06:00 IMP- hypernatremia- thirsty encourage oral water prerenal azotemia Plan f/u bmp
--- NOTE | 2019-09-25 19:30 | PN ---
Progress Note, Physician History of Present Illness: doing well - Current Medication List Current Medications: Active Medications Ceftriaxone Sodium 1 gm/ (Dextrose) 50 mls @ 100 mls/hr IVPB DAILY [facility]; Protocol Last Admin: 09/25/19 09:02 Dose: 100 mls/hr Insulin Aspart (Novolog Vial Sliding Scale -) 1 vial SQ ACHS [facility]; Protocol Last Admin: 09/25/19 16:01 Dose: 2 units Lactulose (Cephulac (Oral Use)) 20 gm PO QID [facility] Last Admin: 09/25/19 17:31 Dose: 20 gm Metoclopramide HCl (Reglan Injection -) 10 mg IVPUSH Q8H PRN PRN Reason: NAUSEA AND/OR VOMITING Pantoprazole Sodium (Protonix Iv) 40 mg IVPUSH BID [facility] Last Admin: 09/25/19 09:02 Dose: 40 mg Rifaximin (Xifaxan -) 200 mg PO TID [facility] Last Admin: 09/25/19 13:24 Dose: 200 mg - Objective Vital Signs: Vital Signs Temperature 98.1 F 09/25/19 18:00 Pulse Rate 70 09/25/19 18:00 Respiratory Rate 12 09/25/19 18:00 Blood Pressure 137/62 09/25/19 18:00 O2 Sat by Pulse Oximetry (%) 100 09/25/19 09:08 Constitutional: Yes: No Distress HENT: Yes: Atraumatic Neck: Yes: Supple Cardiovascular: Yes: Regular Rate and Rhythm Respiratory: Yes: CTA Bilaterally Gastrointestinal: Yes: Normal Bowel Sounds Extremities: Yes: WNL Edema: No Neurological: Yes: Alert, Oriented Labs: CBC, BMP 09/25/19 06:00 09/25/19 06:00 INR, PTT INR 1.25 (0.83-1.09) H 09/21/19 06:33 Fibrinogen 175.0 mg/dL (238-498) L 09/19/19 06:20 Problem List - Problems (1) Altered mental status Assessment/Plan: awake Code(s): R41.82 - ALTERED MENTAL STATUS, UNSPECIFIED Qualifiers: Altered mental status type: unspecified Qualified Code(s): R41.82 - Altered mental status, unspecified (2) Aphasia Code(s): R47.01 - APHASIA (3) Hepatic encephalopathy Assessment/Plan: alert Code(s): K72.90 - HEPATIC FAILURE, UNSPECIFIED WITHOUT COMA (4) Cirrhosis Code(s): K74.60 - UNSPECIFIED CIRRHOSIS OF LIVER Qualifiers: Hepatic cirrhosis type: unspecified hepatic cirrhosis Ascites presence: with ascites Qualified Code(s): K74.60 - Unspecified cirrhosis of liver; R18.8 - Other ascites (5) Hepatitis C Code(s): B19.20 - UNSPECIFIED VIRAL HEPATITIS C WITHOUT HEPATIC COMA Qualifiers: Viral hepatitis chronicity: chronic Hepatic coma status: without hepatic coma Qualified Code(s): B18.2 - Chronic viral hepatitis C (6) Hypertension Assessment/Plan: on meds monitor Code(s): I10 - ESSENTIAL (PRIMARY) HYPERTENSION Qualifiers: Hypertension type: essential hypertension Qualified Code(s): I10 - Essential (primary) hypertension (7) Anemia Assessment/Plan: s/p egd s/p prbc transfusion Code(s): D64.9 - ANEMIA, UNSPECIFIED (8) Bacteremia Assessment/Plan: d/w id no need for abx Code(s): R78.81 - BACTEREMIA (9) GI bleeding Assessment/Plan: h/h stable Code(s): K92.2 - GASTROINTESTINAL HEMORRHAGE, UNSPECIFIED
[2019-09-26] MEDS ORDERED: PT OWN MED DRAWER 7, Y5N ONE ×4 (06:38→22:00)
[2019-09-26] MEDS: INSULIN SLIDING SCALE (NOVOLOG) 1 VIAL SQ SCH ×4 (06:45→22:03)
[2019-09-26] MEDS: RIFAXIMIN 200 MG TABLET PO SCH ×3 (06:46→22:03)
--- NOTE | 2019-09-26 07:01 | PN ---
Progress Note (short form) - Note Progress Note: Chief Complaint: Events noted, notes reviewed, denies any chest pain or dyspnea , sinus rhythm with IVCD noted on monitor History of Present Illness: Seen and examined on telemetry. Events noted, notes reviewed, denies any chest pain or dyspnea, sinus rhythm with IVCD noted on monitor Overall no change in status - Current Medication List Current Medications Ceftriaxone Sodium 1 gm/ (Dextrose) 50 mls @ 100 mls/hr IVPB DAILY [facility]; Protocol Last Admin: 09/25/19 09:02 Dose: 100 mls/hr Insulin Aspart (Novolog Vial Sliding Scale -) 1 vial SQ ACHS [facility]; Protocol Last Admin: 09/26/19 06:45 Dose: 2 units Lactulose (Cephulac (Oral Use)) 20 gm PO QID [facility] Last Admin: 09/25/19 22:15 Dose: 20 gm Metoclopramide HCl (Reglan Injection -) 10 mg IVPUSH Q8H PRN PRN Reason: NAUSEA AND/OR VOMITING Pantoprazole Sodium (Protonix Iv) 40 mg IVPUSH BID [facility] Last Admin: 09/25/19 22:16 Dose: 40 mg Rifaximin (Xifaxan -) 200 mg PO TID [facility] Last Admin: 09/26/19 06:46 Dose: 200 mg Review of Systems Cardiovascular: As noted above Respiratory: denies: Cough or Sputum Production Gastrointestinal: denies: Nausea, Vomiting, Diarrhea, Constipation or Abdominal Discomfort Musculoskeletal: No Symptoms Reported Endocrine: No Symptoms Reported` - Objective Vital Signs: Last Vital Signs Temp Pulse Resp BP Pulse Ox 98.0 F 66 16 138/60 98 09/26/19 06:00 09/26/19 06:00 09/26/19 06:00 09/26/19 06:00 09/25/19 21:00 Intake & Output 09/23/19 09/24/19 09/25/19 09/26/19 23:59 23:59 23:59 23:59 Intake Total 550 650 650 264 Output Total 2304 2 Balance -1754 648 650 264 Weight 191 lb 3.2 oz 190 lb 8 oz 184 lb 188 lb 2 oz Neck: Supple Negative JVD No Bruit Respiratory: Diminished Breath Sounds Bases Bilaterally Cardiovascular: S1 S2 Regular Rate and Rhythm Gastrointestinal: Soft Benign Normal Bowel Sounds Ext: No Edema Labs: Pending AM blood test ABG Results ABG pH 7.34 (7.35-7.45) L 09/22/19 16:45 ABG pCO2 at Pt Temp 37.4 mmHg (35-45) 09/22/19 16:45 ABG pO2 at Pt Temp 180 mmHg (80-100) H 09/22/19 16:45 ABG HCO3 19.6 mmol/L (22-27) L 09/22/19 16:45 ABG O2 Sat (Measured) 99.5 % (95-98) H 09/22/19 16:45 ABG O2 Content 15.7 % vol 09/22/19 16:45 ABG Base Excess -5.1 meq/l (-2-2) L 09/22/19 16:45 CBC, BMP 09/25/19 06:00 09/25/19 06:00 Hepatic Panel Total Bilirubin 3.3 mg/dL (0.2-1) H 09/25/19 06:00 Direct Bilirubin 1.2 mg/dL (0.0-0.2) H 09/19/19 06:20 AST 43 U/L (15-37) H 09/25/19 06:00 ALT 25 U/L (13-61) 09/25/19 06:00 Alkaline Phosphatase 168 U/L (45-117) H 09/25/19 06:00 Albumin 2.9 g/dl (3.4-5.0) L 09/25/19 06:00 INR, PTT INR 1.25 (0.83-1.09) H 09/21/19 06:33 Fibrinogen 175.0 mg/dL (238-498) L 09/19/19 06:20 Assessment/Plan ASSESSMENT: 1. Post acute respiratory failure 2. Acute blood loss anemia/GI bleed- gastric ulcer, duodenal AVM post clipping and cautery 3. Coronary artery disease/visual coronary artery calcification angina pectoris , stable clinically 4. Diastolic LV dysfunction with clinical class 0 NYHA classification LV failure 5. HTN 6. CLBBB 7. Hepatic encephalopathy and cirrhosis 8. Hepatitis C 9. CKD 10. Thrombocytopenia/Coagulopathy related to above noted chronic liver disease 11. Hypernatremia, persistent await AM blood test PLAN: 1. As recommend the addition of Nadolol 40 mg daily if not contraindicated- CAD and probable portal HTN 2. Not a candidate for anti- platelet agent therapy/Thrombocytopenia 3. Antibiotics as per primary team 4. Continue PPI 5. Can be transferred to floor care from the cardiovascular point of view Sandie Sy M.D.
[2019-09-26] MEDS ORDERED: cefTRIAXone SODIUM 1 GM VIAL ONE ×2 (10:34→10:36)
[2019-09-26] MEDS ORDERED: DEXTROSE 5%-WATER - 50 ML IVPB ONE (10:35)
[2019-09-26] MEDS: CEFTRIAXONE 1 GM in DEXTROSE 5%-WATER - 50 ML IVPB SCH (10:41)
[2019-09-26] MEDS: LACTULOSE 20 GM/30 ML UDC (FOR ORAL USE ONLY) PO SCH ×4 (10:41→22:03)
--- NOTE | 2019-09-26 11:37 | PN ---
Progress Note (short form) - Note Progress Note: PULMONARY More alert, awake. Denies shortness of breath. Vital Signs Period Temp Pulse Resp BP Sys/Shen Pulse Ox Last 24 Hr 98.0 F-98.2 F 66-80 11-18 123-157/57-79 98-100 Gen: NAD at rest Heart: RRR Lung: decreased breath sounds at the bases Abd: soft, nontender Ext: no edema CBC, BMP 09/25/19 06:00 09/25/19 06:00 Active Medications Ceftriaxone Sodium 1 gm/ (Dextrose) 50 mls @ 100 mls/hr IVPB DAILY [facility]; Protocol Last Admin: 09/26/19 10:41 Dose: 100 mls/hr Insulin Aspart (Novolog Vial Sliding Scale -) 1 vial SQ ACHS [facility]; Protocol Last Admin: 09/26/19 06:45 Dose: 2 units Lactulose (Cephulac (Oral Use)) 20 gm PO QID [facility] Last Admin: 09/26/19 10:41 Dose: 20 gm Metoclopramide HCl (Reglan Injection -) 10 mg IVPUSH Q8H PRN PRN Reason: NAUSEA AND/OR VOMITING Nadolol (Corgard -) 40 mg PO DAILY [facility] Pantoprazole Sodium (Protonix Iv) 40 mg IVPUSH BID [facility] Last Admin: 09/25/19 22:16 Dose: 40 mg Rifaximin (Xifaxan -) 200 mg PO TID [facility] Last Admin: 09/26/19 06:46 Dose: 200 mg A/P s/p Acute Respiratory Failure GI Bleed Acute Blood Loss Anemia Gastric Ulcer/Duodenal AVM s/p Clipping/Cautery/Epi injection Hepatic Encephalopathy Liver Cirrhosis Thrombocytopenia/Coagulopathy CKD Volume Overlad HTN - continue protonix - monitor H/H - lasix as needed - monitor urine output, creatinine - on empiric antibiotics - lactulose, rifaximin - aspiration precautions - DVT prophylaxis
[2019-09-26] MEDS: NADOLOL 40 MG TABLET (FP) PO SCH (11:39)
--- NOTE | 2019-09-26 13:22 | PN ---
Progress Note, Physician - Current Medication List Current Medications: Active Medications Ceftriaxone Sodium 1 gm/ (Dextrose) 50 mls @ 100 mls/hr IVPB DAILY [facility]; Protocol Last Admin: 09/26/19 10:41 Dose: 100 mls/hr Insulin Aspart (Novolog Vial Sliding Scale -) 1 vial SQ ACHS [facility]; Protocol Last Admin: 09/26/19 12:37 Dose: 2 units Lactulose (Cephulac (Oral Use)) 20 gm PO QID [facility] Last Admin: 09/26/19 10:41 Dose: 20 gm Metoclopramide HCl (Reglan Injection -) 10 mg IVPUSH Q8H PRN PRN Reason: NAUSEA AND/OR VOMITING Nadolol (Corgard -) 40 mg PO DAILY [facility] Last Admin: 09/26/19 11:39 Dose: 40 mg Pantoprazole Sodium (Protonix Iv) 40 mg IVPUSH BID [facility] Last Admin: 09/25/19 22:16 Dose: 40 mg Rifaximin (Xifaxan -) 200 mg PO TID [facility] Last Admin: 09/26/19 06:46 Dose: 200 mg - Objective Vital Signs: Vital Signs Temperature 98.2 F 09/26/19 08:00 Pulse Rate 68 09/26/19 10:00 Respiratory Rate 18 09/26/19 10:00 Blood Pressure 156/66 09/26/19 10:00 O2 Sat by Pulse Oximetry (%) 100 09/26/19 09:00 Constitutional: Yes: No Distress HENT: Yes: Atraumatic Cardiovascular: Yes: Regular Rate and Rhythm Respiratory: Yes: CTA Bilaterally Gastrointestinal: Yes: Normal Bowel Sounds Extremities: Yes: WNL Labs: CBC, BMP 09/25/19 06:00 09/25/19 06:00 INR, PTT INR 1.25 (0.83-1.09) H 09/21/19 06:33 Fibrinogen 175.0 mg/dL (238-498) L 09/19/19 06:20 Problem List - Problems (1) Altered mental status Assessment/Plan: DOING WELL Code(s): R41.82 - ALTERED MENTAL STATUS, UNSPECIFIED Qualifiers: Altered mental status type: unspecified Qualified Code(s): R41.82 - Altered mental status, unspecified (2) Aphasia Code(s): R47.01 - APHASIA (3) Hepatic encephalopathy Assessment/Plan: alert Code(s): K72.90 - HEPATIC FAILURE, UNSPECIFIED WITHOUT COMA (4) Cirrhosis Assessment/Plan: on meds Code(s): K74.60 - UNSPECIFIED CIRRHOSIS OF LIVER Qualifiers: Hepatic cirrhosis type: unspecified hepatic cirrhosis Ascites presence: with ascites Qualified Code(s): K74.60 - Unspecified cirrhosis of liver; R18.8 - Other ascites (5) Hepatitis C Code(s): B19.20 - UNSPECIFIED VIRAL HEPATITIS C WITHOUT HEPATIC COMA Qualifiers: Viral hepatitis chronicity: chronic Hepatic coma status: without hepatic coma Qualified Code(s): B18.2 - Chronic viral hepatitis C (6) Hypertension Assessment/Plan: on meds monitor Code(s): I10 - ESSENTIAL (PRIMARY) HYPERTENSION Qualifiers: Hypertension type: essential hypertension Qualified Code(s): I10 - Essential (primary) hypertension (7) Anemia Assessment/Plan: s/p egd s/p prbc transfusion Code(s): D64.9 - ANEMIA, UNSPECIFIED (8) Bacteremia Assessment/Plan: d/w id no need for abx Code(s): R78.81 - BACTEREMIA (9) GI bleeding Assessment/Plan: h/h stable Code(s): K92.2 - GASTROINTESTINAL HEMORRHAGE, UNSPECIFIED
--- NOTE | 2019-09-26 13:54 | PN ---
Progress Note (short form) - Note Progress Note: Problems s/p Acute Respiratory Failure GI Bleed Acute Blood Loss Anemia Gastric Ulcer/Duodenal AVM s/p Clipping/Cautery/Epi injection Hepatic Encephalopathy Liver Cirrhosis Thrombocytopenia/Coagulopathy CKD Volume Overlad HTN Current Medications Ceftriaxone Sodium 1 gm/ (Dextrose) 50 mls @ 100 mls/hr IVPB DAILY [facility]; Protocol Last Admin: 09/26/19 10:41 Dose: 100 mls/hr Insulin Aspart (Novolog Vial Sliding Scale -) 1 vial SQ ACHS [facility]; Protocol Last Admin: 09/26/19 12:37 Dose: 2 units Lactulose (Cephulac (Oral Use)) 20 gm PO QID [facility] Last Admin: 09/26/19 10:41 Dose: 20 gm Metoclopramide HCl (Reglan Injection -) 10 mg IVPUSH Q8H PRN PRN Reason: NAUSEA AND/OR VOMITING Nadolol (Corgard -) 40 mg PO DAILY [facility] Last Admin: 09/26/19 11:39 Dose: 40 mg Pantoprazole Sodium (Protonix Iv) 40 mg IVPUSH BID [facility] Last Admin: 09/25/19 22:16 Dose: 40 mg Rifaximin (Xifaxan -) 200 mg PO TID [facility] Last Admin: 09/26/19 06:46 Dose: 200 mg Last Vital Signs Temp Pulse Resp BP Pulse Ox 98.9 F 60 16 145/84 100 09/26/19 12:00 09/26/19 12:00 09/26/19 12:00 09/26/19 12:00 09/26/19 09:00 edema LUE abd tense (ascites?) not very distended CBC, BMP 09/25/19 06:00 09/25/19 06:00 IMP- hypernatremia- thirsty serum sodium was trending up yesterday no labs today will order labs today to monitor sodium Plan- continue to encourage oral water Plan f/u bmp
[2019-09-26 16:46] LABS: ALBUMIN 2.5 g/dl (3.4-5.0); BILIRUBIN,TOTAL 2.1 mg/dL (0.2-1); BLOOD UREA NITROGEN 35.2 mg/dL (7-18); CALCIUM 8.1 mg/dL (8.5-10.1); CREATININE 1.2 mg/dL (0.55-1.3); POTASSIUM 3.9 mmol/L (3.5-5.1)
[2019-09-26] MEDS: PANTOPRAZOLE SODIUM 40 MG VIAL IVPUSH SCH ×2 (18:14→22:03)
[2019-09-26] MEDS ORDERED: BENZOIN/ALOE VERA/STORAX/TOLU 58 ML BOTTLE ONE (19:52)
[2019-09-27] MEDS ORDERED: PT OWN MED DRAWER 7, Y5N ONE ×4 (05:41→21:14)
[2019-09-27] MEDS: RIFAXIMIN 200 MG TABLET PO SCH ×3 (05:41→21:17)
[2019-09-27] MEDS: INSULIN SLIDING SCALE (NOVOLOG) 1 VIAL SQ SCH ×4 (06:35→21:02)
--- NOTE | 2019-09-27 08:22 | PN ---
Progress Note (short form) - Note Progress Note: Neurology Chief Complaint: Altered Mental Status HPI: 68 y/o M with hx of IDDM, HCV, cirrhosis, asthma presenting to the ED for altered mental status from the night prior to admission. per notes, the reported he has appeared more lethargic since evening prior and had to be woken up out of bed to take meds and eat. However he was able to be put to sleep without issues. She noted that he had a fall out of bed. The morning of admission, the patient didnt wake up and was somnolent. He also had emesis and per , reported abd pain. She also states that he hasnt had a BM in 3days despite lactulose. On arrival patient was vomiting and required suctioning. states patient had no fever, cough, SOB, chest pain, hematemesis, BPR, dysuria. CT head was completed and did not show acute changes. Of note, patient was admitted to [facility] last week for therapeutic paracentesis. Was noted to have sscleral icterus, slight jaundice. Most likely toxic metabolic encephalopathy. On labs, ammonia level normal but hemoglobin and hematocrit reduced and suspicious for anemia.GI recommended Rifaximin aand lactulose, viral hepatitis panels as well as possible endoscopy. Also mention of positive blood cultures and ID consult. Patient with postive occult stool and inquired emergent management overnight. Patient currently in ICU, after rectal bleeding, coffee ground emesis noted, pt went for STAT EGD, received multiple blood transfusions and blood products. Remains intubated and on mechanical ventilation in ICU. Continued monitoring of H/H which has stabilized, GI note reviewed and mentioned continued octeotride. Surgery note reviewed and mentioned EGD may be considered for rebleed but if surgery needed may require tertiary care facility. Currently on antibiotics, Ceftriaxone. Has been extubated since 09/22 and comfortable appearing on room air. Patient transferred to telemetry care. Weekend notes reviewed. He still is awake, alert , can tell me month and year as well as location. Recognizes examiner, mental status improved. Active Medications Ceftriaxone Sodium 1 gm/ (Dextrose) 50 mls @ 100 mls/hr IVPB DAILY [facility]; Protocol Last Admin: 09/26/19 10:41 Dose: 100 mls/hr Insulin Aspart (Novolog Vial Sliding Scale -) 1 vial SQ ACHS [facility]; Protocol Last Admin: 09/27/19 06:35 Dose: Not Given Lactulose (Cephulac (Oral Use)) 20 gm PO QID [facility] Last Admin: 09/26/19 22:03 Dose: 20 gm Metoclopramide HCl (Reglan Injection -) 10 mg IVPUSH Q8H PRN PRN Reason: NAUSEA AND/OR VOMITING Nadolol (Corgard -) 40 mg PO DAILY [facility] Last Admin: 09/26/19 11:39 Dose: 40 mg Pantoprazole Sodium (Protonix Iv) 40 mg IVPUSH BID [facility] Last Admin: 09/26/19 22:03 Dose: 40 mg Rifaximin (Xifaxan -) 200 mg PO TID [facility] Last Admin: 09/27/19 05:41 Dose: 200 mg *Physical Exam Vital Signs Period Temp Pulse Resp BP Sys/Shen Pulse Ox Last 24 Hr 98 F-98.9 F 48-68 11-18 131-156/54-84 99-100 GENERAL: sedated and on ventilation HEAD: No signs of trauma, normocephalic, atraumatic EYES: EOMI, scleral icterus, conjunctiva clear ENT: Auricles normal inspection, hearing grossly normal, nares patent, oropharynx clear without exudates. Moist mucosa NECK: Normal ROM, no lymphadenopathy LUNGS: No increased work of breathing, symmetrical chest rise, clear to auscultation bilaterally, no wheezes, crackles or rhonchi HEART: Regular rate and rhythm, normal S1 and S2, no murmurs, peripheral pulses 2+ and equal bilaterally. ABDOMEN: Soft, nondistended, nontender, normoactive bowel sounds. No guarding, no rebound. No masses. No CVAT EXTREMITIES: Normal inspection, Normal range of motion, no edema. No clubbing or cyanosis. NEUROLOGICAL: sedated and on mechanical vent, moves extremities to pain, not following commands, no abnormal movements SKIN: jaundice CBCD WBC 4.2 K/mm3 (4.0-10.0) 09/25/19 06:00 RBC 3.43 M/mm3 (4.00-5.60) L 09/25/19 06:00 Hgb 10.4 GM/dL (11.7-16.9) L 09/25/19 06:00 Hct 30.7 % (35.4-49) L 09/25/19 06:00 MCV 89.4 fl (80-96) 09/25/19 06:00 MCHC 33.7 g/dl (32.0-35.9) 09/25/19 06:00 RDW 17.9 % (11.9-15.9) H 09/25/19 06:00 Plt Count 46 K/MM3 (134-434) L 09/25/19 06:00 MPV 8.9 fl (7.5-11.1) 09/25/19 06:00 CMP Sodium 144 mmol/L (136-145) 09/26/19 15:29 Potassium 3.9 mmol/L (3.5-5.1) 09/26/19 15:29 Chloride 114 mmol/L (98-107) H 09/26/19 15:29 Carbon Dioxide 24 mmol/L (21-32) 09/26/19 15:29 Anion Gap 5 MMOL/L (8-16) L 09/26/19 15:29 BUN 35.2 mg/dL (7-18) H 09/26/19 15:29 Creatinine 1.2 mg/dL (0.55-1.3) 09/26/19 15:29 Random Glucose 230 mg/dL (74-106) H 09/26/19 15:29 Calcium 8.1 mg/dL (8.5-10.1) L 09/26/19 15:29 Total Bilirubin 2.1 mg/dL (0.2-1) H 09/26/19 15:29 AST 64 U/L (15-37) H 09/26/19 15:29 ALT 31 U/L (13-61) 09/26/19 15:29 Alkaline Phosphatase 184 U/L (45-117) H 09/26/19 15:29 Total Protein 6.0 g/dl (6.4-8.2) L 09/26/19 15:29 Albumin 2.5 g/dl (3.4-5.0) L 09/26/19 15:29 CARDIAC ENZYMES Creatine Kinase 268 U/L (26-308) 09/13/19 12:45 Troponin I < 0.02 ng/ml (0.00-0.05) 09/13/19 12:45 Medical Decision Making 68 y/o M with hx of IDDM, HCV, cirrhosis, asthma presenting to the ED for altered mental status from the night prior to admission. per notes, the reported he has appeared more lethargic since evening prior and had to be woken up out of bed to take meds and eat. However he was able to be put to sleep without issues. She noted that he had a fall out of bed. The morning of admission, the patient didnt wake up and was somnolent. He also had emesis and per , reported abd pain. She also states that he hasnt had a BM in 3days despite lactulose. On arrival patient was vomiting and required suctioning. states patient had no fever, cough, SOB, chest pain, hematemesis, BPR, dysuria. CT head was completed and did not show acute changes. Of note, patient was admitted to [facility] last week for therapeutic paracentesis. Was noted to have sscleral icterus, slight jaundice. Most likely toxic metabolic encephalopathy. On labs, ammonia level normal but hemoglobin and hematocrit reduced and suspicious for anemia. Reviewed notes including from GI recommended Rifaximin aand lactulose, viral hepatitis panels as well as possible endoscopy. Also mention of positive blood cultures and ID consult. Patient with postive occult stool and inquired emergent management overnight. Patient currently in ICU, after rectal bleeding, coffee ground emesis noted, pt went for STAT EGD, received multiple blood transfusions and blood products. Remains intubated and on mechanical ventilation in ICU. Continued monitoring of H/H which has stabilized, GI note reviewed and mentioned continued octeotride. Surgery note reviewed and mentioned EGD may be considered for rebleed but if surgery needed may require tertiary care facility. Has been extubated since and comfortable appearing on room air. Patient transferred to telemetry care. Weekend notes reviewed. He still is awake, alert, can tell me month and year as well as location. Recognizes examiner, mental status improved. Continue GI and hematologic optimization. Monitor H and H, tranfuse as needed. Continue to monitor mental status. Continue Abx as per primary. (
[2019-09-27] MEDS ORDERED: cefTRIAXone SODIUM 1 GM VIAL ONE (08:57)
[2019-09-27] MEDS ORDERED: DEXTROSE 5%-WATER - 50 ML IVPB ONE (08:58)
[2019-09-27] MEDS: CEFTRIAXONE 1 GM in DEXTROSE 5%-WATER - 50 ML IVPB SCH (09:02)
[2019-09-27] MEDS: PANTOPRAZOLE SODIUM 40 MG VIAL IVPUSH SCH ×2 (09:02→21:17)
[2019-09-27] MEDS: LACTULOSE 20 GM/30 ML UDC (FOR ORAL USE ONLY) PO SCH ×4 (09:02→21:17)
[2019-09-27] MEDS: NADOLOL 40 MG TABLET (FP) PO SCH (09:46)
--- NOTE | 2019-09-27 10:36 | PN ---
Progress Note, Physician Chief Complaint: Events noted Not in distress History of Present Illness: Patient was seen and examined. Awake. Chart was reviewed Denies chest pain or SOB - Current Medication List Current Medications: Active Medications Ceftriaxone Sodium 1 gm/ (Dextrose) 50 mls @ 100 mls/hr IVPB DAILY [facility]; Protocol Last Admin: 09/27/19 09:02 Dose: 100 mls/hr Insulin Aspart (Novolog Vial Sliding Scale -) 1 vial SQ ACHS [facility]; Protocol Last Admin: 09/27/19 06:35 Dose: Not Given Lactulose (Cephulac (Oral Use)) 20 gm PO QID [facility] Last Admin: 09/27/19 09:02 Dose: 20 gm Metoclopramide HCl (Reglan Injection -) 10 mg IVPUSH Q8H PRN PRN Reason: NAUSEA AND/OR VOMITING Nadolol (Corgard -) 40 mg PO DAILY [facility] Last Admin: 09/27/19 09:46 Dose: 40 mg Pantoprazole Sodium (Protonix Iv) 40 mg IVPUSH BID [facility] Last Admin: 09/27/19 09:02 Dose: 40 mg Rifaximin (Xifaxan -) 200 mg PO TID [facility] Last Admin: 09/27/19 05:41 Dose: 200 mg - Objective Vital Signs: Vital Signs Temperature 98 F 09/27/19 10:08 Pulse Rate 56 L 09/27/19 10:08 Respiratory Rate 13 09/27/19 10:08 Blood Pressure 133/52 L 09/27/19 10:08 O2 Sat by Pulse Oximetry (%) 100 09/27/19 09:00 Eyes: Yes: PERRL HENT: Yes: Atraumatic Neck: Yes: Supple Cardiovascular: Yes: Regular Rate and Rhythm, S1, S2 Respiratory: Yes: Diminished Gastrointestinal: Yes: Normal Bowel Sounds, Soft. No: Tenderness Edema: No Labs: CBC, BMP 09/25/19 06:00 09/26/19 15:29 Problem List - Problems (1) Acute gastric ulcer with hemorrhage Code(s): K25.0 - ACUTE GASTRIC ULCER WITH HEMORRHAGE (2) Altered mental status Code(s): R41.82 - ALTERED MENTAL STATUS, UNSPECIFIED Qualifiers: Altered mental status type: unspecified Qualified Code(s): R41.82 - Altered mental status, unspecified (3) Anemia Code(s): D64.9 - ANEMIA, UNSPECIFIED (4) GI bleeding Code(s): K92.2 - GASTROINTESTINAL HEMORRHAGE, UNSPECIFIED (5) LBBB (left bundle branch block) Code(s): I44.7 - LEFT BUNDLE-BRANCH BLOCK, UNSPECIFIED (6) Hepatic encephalopathy Code(s): K72.90 - HEPATIC FAILURE, UNSPECIFIED WITHOUT COMA (7) CAD (coronary artery disease) Code(s): I25.10 - ATHSCL HEART DISEASE OF [place] CORONARY ARTERY W/O ANG PCTRS (8) Cirrhosis Code(s): K74.60 - UNSPECIFIED CIRRHOSIS OF LIVER Qualifiers: Hepatic cirrhosis type: unspecified hepatic cirrhosis Ascites presence: with ascites Qualified Code(s): K74.60 - Unspecified cirrhosis of liver; R18.8 - Other ascites (9) Hepatitis C Code(s): B19.20 - UNSPECIFIED VIRAL HEPATITIS C WITHOUT HEPATIC COMA Qualifiers: Viral hepatitis chronicity: chronic Hepatic coma status: without hepatic coma Qualified Code(s): B18.2 - Chronic viral hepatitis C (10) Hypertension Code(s): I10 - ESSENTIAL (PRIMARY) HYPERTENSION Qualifiers: Hypertension type: essential hypertension Qualified Code(s): I10 - Essential (primary) hypertension Assessment/Plan 1. Post acute respiratory failure 2. Acute blood loss anemia/GI bleed- gastric ulcer, duodenal AVM post clipping and cautery 3. Coronary artery disease/visual coronary artery calcification angina pectoris , stable clinically 4. Diastolic LV dysfunction with clinical class 0 NYHA classification LV failure 5. HTN 6. Complete LBBB 7. Hepatic encephalopathy and cirrhosis 8. Hepatitis C 9. CKD 10. Thrombocytopenia/Coagulopathy related to above noted chronic liver disease 11. Hypernatremia, persistent await AM blood test PLAN: 1. Continue Nadolol 40 mg daily if not contraindicated - CAD and probable portal HTN 2. Not a candidate for anti-platelet agent 3. Antibiotics 4. Continue PPI 5. Can be transferred to floor care from the cardiovascular point of view Sandeep Yen MD
--- NOTE | 2019-09-27 10:45 | PN ---
Progress Note, [employer]ILY [employer] - Note Progress Note: Pt alert, verbal, doing well with chopped diet/thin liquids. Pt would like his dentures brought from home. Mastication is inefficient without them. 3 oz water (-) Continue chopped diet Obtain dentures for diet upgrade.
--- NOTE | 2019-09-27 12:16 | PN ---
Progress Note, Physician Chief Complaint: Pt seen and examined at bedside. He is awake and alert. he denies shortness of breath. - Current Medication List Current Medications: Active Medications Ceftriaxone Sodium 1 gm/ (Dextrose) 50 mls @ 100 mls/hr IVPB DAILY [facility]; Protocol Last Admin: 09/27/19 09:02 Dose: 100 mls/hr Insulin Aspart (Novolog Vial Sliding Scale -) 1 vial SQ ACHS [facility]; Protocol Last Admin: 09/27/19 06:35 Dose: Not Given Lactulose (Cephulac (Oral Use)) 20 gm PO QID [facility] Last Admin: 09/27/19 09:02 Dose: 20 gm Metoclopramide HCl (Reglan Injection -) 10 mg IVPUSH Q8H PRN PRN Reason: NAUSEA AND/OR VOMITING Nadolol (Corgard -) 40 mg PO DAILY [facility] Last Admin: 09/27/19 09:46 Dose: 40 mg Pantoprazole Sodium (Protonix Iv) 40 mg IVPUSH BID [facility] Last Admin: 09/27/19 09:02 Dose: 40 mg Rifaximin (Xifaxan -) 200 mg PO TID [facility] Last Admin: 09/27/19 05:41 Dose: 200 mg - Objective Vital Signs: Vital Signs Temperature 98 F 09/27/19 10:08 Pulse Rate 56 L 09/27/19 10:08 Respiratory Rate 13 09/27/19 10:08 Blood Pressure 133/52 L 09/27/19 10:08 O2 Sat by Pulse Oximetry (%) 100 09/27/19 09:00 Constitutional: Yes: Calm Eyes: Yes: Conjunctiva Clear HENT: Yes: Atraumatic Neck: Yes: Supple Cardiovascular: Yes: S1, S2 Respiratory: Yes: CTA Bilaterally Gastrointestinal: Yes: Normal Bowel Sounds, Soft Genitourinary: Yes: WNL Musculoskeletal: Yes: WNL Edema: No Neurological: Yes: Oriented Psychiatric: Yes: Oriented Labs: CBC, BMP 09/25/19 06:00 09/26/19 15:29 INR, PTT INR 1.25 (0.83-1.09) H 09/21/19 06:33 Fibrinogen 175.0 mg/dL (238-498) L 09/19/19 06:20 Assessment/Plan Current Medications Generic Name Dose Route Start Last Admin Trade Name Freq PRN Reason Stop Dose Admin Ceftriaxone Sodium 1 gm/ 50 mls @ 100 mls/hr 09/25/19 10:00 09/27/19 09:02 Dextrose IVPB 100 mls/hr DAILY [facility] Administration Protocol Insulin Aspart 1 vial 09/25/19 07:00 09/27/19 06:35 Novolog Vial Sliding Scale - SQ Not Given ACHS [facility] Protocol Lactulose 20 gm 09/24/19 22:00 09/27/19 09:02 Cephulac (Oral Use) PO 20 gm QID [facility] Administration Metoclopramide HCl 10 mg 09/24/19 23:22 Reglan Injection - IVPUSH Q8H PRN NAUSEA AND/OR VOMITING Nadolol 40 mg 09/26/19 10:00 09/27/19 09:46 Corgard - PO 40 mg DAILY [facility] Administration Pantoprazole Sodium 40 mg 09/25/19 10:00 09/27/19 09:02 Protonix Iv IVPUSH 40 mg BID [facility] Administration Rifaximin 200 mg 09/24/19 22:00 09/27/19 05:41 Xifaxan - PO 200 mg TID [facility] Administration Impression 1. [place] 2. dm 3. gi bleed 4. resp failure 5. hep c 6. liver cirrhosos 7. hypernatremia Plan - renal function is improved - mental status improved - volume status improved - lasix prn - pt tolerating diet - will follow PRN
--- NOTE | 2019-09-27 13:03 | PN ---
Progress Note (short form) - Note Progress Note: PULMONARY More alert, awake. Denies shortness of breath. Vital Signs Period Temp Pulse Resp BP Sys/Shen Pulse Ox Last 24 Hr 98 F-98.9 F 48-59 11-16 131-155/52-77 99-100 Gen: NAD at rest Heart: RRR Lung: decreased breath sounds at the bases Abd: soft, nontender Ext: no edema CBC, BMP 09/25/19 06:00 09/26/19 15:29 Active Medications Ceftriaxone Sodium 1 gm/ (Dextrose) 50 mls @ 100 mls/hr IVPB DAILY [facility]; Protocol Last Admin: 09/27/19 09:02 Dose: 100 mls/hr Insulin Aspart (Novolog Vial Sliding Scale -) 1 vial SQ ACHS [facility]; Protocol Last Admin: 09/27/19 12:44 Dose: 4 units Lactulose (Cephulac (Oral Use)) 20 gm PO QID [facility] Last Admin: 09/27/19 09:02 Dose: 20 gm Metoclopramide HCl (Reglan Injection -) 10 mg IVPUSH Q8H PRN PRN Reason: NAUSEA AND/OR VOMITING Nadolol (Corgard -) 40 mg PO DAILY [facility] Last Admin: 09/27/19 09:46 Dose: 40 mg Pantoprazole Sodium (Protonix Iv) 40 mg IVPUSH BID [facility] Last Admin: 09/27/19 09:02 Dose: 40 mg Rifaximin (Xifaxan -) 200 mg PO TID [facility] Last Admin: 09/27/19 05:41 Dose: 200 mg A/P s/p Acute Respiratory Failure GI Bleed Acute Blood Loss Anemia Gastric Ulcer/Duodenal AVM s/p Clipping/Cautery/Epi injection Hepatic Encephalopathy Liver Cirrhosis Thrombocytopenia/Coagulopathy CKD Volume [place] HTN - continue protonix - monitor H/H - lasix as needed - monitor urine output, creatinine - on empiric antibiotics - lactulose, rifaximin - aspiration precautions - DVT prophylaxis
--- NOTE | 2019-09-27 15:11 | PN ---
Progress Note, Physician - Current Medication List Current Medications: Active Medications Ceftriaxone Sodium 1 gm/ (Dextrose) 50 mls @ 100 mls/hr IVPB DAILY [facility]; Protocol Last Admin: 09/27/19 09:02 Dose: 100 mls/hr Insulin Aspart (Novolog Vial Sliding Scale -) 1 vial SQ ACHS [facility]; Protocol Last Admin: 09/27/19 12:44 Dose: 4 units Lactulose (Cephulac (Oral Use)) 20 gm PO QID [facility] Last Admin: 09/27/19 14:55 Dose: 20 gm Metoclopramide HCl (Reglan Injection -) 10 mg IVPUSH Q8H PRN PRN Reason: NAUSEA AND/OR VOMITING Nadolol (Corgard -) 40 mg PO DAILY [facility] Last Admin: 09/27/19 09:46 Dose: 40 mg Pantoprazole Sodium (Protonix Iv) 40 mg IVPUSH BID [facility] Last Admin: 09/27/19 09:02 Dose: 40 mg Rifaximin (Xifaxan -) 200 mg PO TID [facility] Last Admin: 09/27/19 14:55 Dose: 200 mg - Objective Vital Signs: Vital Signs Temperature 98 F 09/27/19 10:08 Pulse Rate 56 L 09/27/19 10:08 Respiratory Rate 13 09/27/19 10:08 Blood Pressure 133/52 L 09/27/19 10:08 O2 Sat by Pulse Oximetry (%) 100 09/27/19 09:00 Constitutional: Yes: No Distress HENT: Yes: Atraumatic Neck: Yes: Supple Cardiovascular: Yes: Regular Rate and Rhythm Respiratory: Yes: CTA Bilaterally Gastrointestinal: Yes: Normal Bowel Sounds Extremities: Yes: WNL Edema: Yes Neurological: Yes: Alert, Oriented Labs: CBC, BMP 09/25/19 06:00 09/26/19 15:29 INR, PTT INR 1.25 (0.83-1.09) H 09/21/19 06:33 Fibrinogen 175.0 mg/dL (238-498) L 09/19/19 06:20 Problem List - Problems (1) Altered mental status Assessment/Plan: DOING WELL Code(s): R41.82 - ALTERED MENTAL STATUS, UNSPECIFIED Qualifiers: Altered mental status type: unspecified Qualified Code(s): R41.82 - Altered mental status, unspecified (2) Aphasia Code(s): R47.01 - APHASIA (3) Hepatic encephalopathy Assessment/Plan: alert on meds Code(s): K72.90 - HEPATIC FAILURE, UNSPECIFIED WITHOUT COMA (4) Cirrhosis Assessment/Plan: on meds Code(s): K74.60 - UNSPECIFIED CIRRHOSIS OF LIVER Qualifiers: Hepatic cirrhosis type: unspecified hepatic cirrhosis Ascites presence: with ascites Qualified Code(s): K74.60 - Unspecified cirrhosis of liver; R18.8 - Other ascites (5) Hepatitis C Code(s): B19.20 - UNSPECIFIED VIRAL HEPATITIS C WITHOUT HEPATIC COMA Qualifiers: Viral hepatitis chronicity: chronic Hepatic coma status: without hepatic coma Qualified Code(s): B18.2 - Chronic viral hepatitis C (6) Hypertension Assessment/Plan: on meds monitor Code(s): I10 - ESSENTIAL (PRIMARY) HYPERTENSION Qualifiers: Hypertension type: essential hypertension Qualified Code(s): I10 - Essential (primary) hypertension (7) Anemia Assessment/Plan: s/p egd s/p prbc transfusion Code(s): D64.9 - ANEMIA, UNSPECIFIED (8) Bacteremia Assessment/Plan: d/w id no need for abx Code(s): R78.81 - BACTEREMIA (9) GI bleeding Assessment/Plan: h/h stable Code(s): K92.2 - GASTROINTESTINAL HEMORRHAGE, UNSPECIFIED
--- NOTE | 2019-09-27 17:58 | PN ---
Progress Note, Physician History of Present Illness: GI FOLLOW UP NOTE Patient examined and case discussed with Dr Fish Patient is alert and oriented in bed. Denies nausea, vomiting, abdominal pain, diarrhea, constipation, rectal bleeding, melena. Last labs show stable Hg 10.4. - Current Medication List Current Medications: Active Medications Ceftriaxone Sodium 1 gm/ (Dextrose) 50 mls @ 100 mls/hr IVPB DAILY [facility]; Protocol Last Admin: 09/27/19 09:02 Dose: 100 mls/hr Insulin Aspart (Novolog Vial Sliding Scale -) 1 vial SQ ACHS [facility]; Protocol Last Admin: 09/27/19 17:15 Dose: 4 units Lactulose (Cephulac (Oral Use)) 20 gm PO QID [facility] Last Admin: 09/27/19 17:45 Dose: 20 gm Metoclopramide HCl (Reglan Injection -) 10 mg IVPUSH Q8H PRN PRN Reason: NAUSEA AND/OR VOMITING Nadolol (Corgard -) 40 mg PO DAILY [facility] Last Admin: 09/27/19 09:46 Dose: 40 mg Pantoprazole Sodium (Protonix Iv) 40 mg IVPUSH BID [facility] Last Admin: 09/27/19 09:02 Dose: 40 mg Rifaximin (Xifaxan -) 200 mg PO TID [facility] Last Admin: 09/27/19 14:55 Dose: 200 mg - Objective Vital Signs: Vital Signs Temperature 98 F 09/27/19 10:08 Pulse Rate 59 L 09/27/19 14:00 Respiratory Rate 16 09/27/19 14:00 Blood Pressure 132/69 09/27/19 14:00 O2 Sat by Pulse Oximetry (%) 100 09/27/19 09:00 Constitutional: Yes: No Distress, Calm Eyes: Yes: Conjunctiva Clear HENT: Yes: Atraumatic Cardiovascular: Yes: Regular Rate and Rhythm Respiratory: Yes: Regular, Diminished Gastrointestinal: Yes: Normal Bowel Sounds, Soft Neurological: Yes: Alert, Oriented Psychiatric: Yes: Alert, Oriented Labs: CBC, BMP 09/25/19 06:00 09/26/19 15:29 INR, PTT INR 1.25 (0.83-1.09) H 09/21/19 06:33 Fibrinogen 175.0 mg/dL (238-498) L 09/19/19 06:20 Problem List - Problems (1) GI bleeding Assessment/Plan: >Pantoprazole BID >repeat EGD done on 09/21 Code(s): K92.2 - GASTROINTESTINAL HEMORRHAGE, UNSPECIFIED (2) Altered mental status Assessment/Plan: >Lactulose and Xifaxin Code(s): R41.82 - ALTERED MENTAL STATUS, UNSPECIFIED Qualifiers: Altered mental status type: unspecified Qualified Code(s): R41.82 - Altered mental status, unspecified
[2019-09-28] MEDS: RIFAXIMIN 200 MG TABLET PO SCH ×3 (05:40→22:15)
[2019-09-28] MEDS: INSULIN SLIDING SCALE (NOVOLOG) 1 VIAL SQ SCH ×4 (06:36→21:30)
--- NOTE | 2019-09-28 08:54 | PN ---
Progress Note (short form) - Note Progress Note: Neurology Chief Complaint: Altered Mental Status HPI: 68 y/o M with hx of IDDM, HCV, cirrhosis, asthma presenting to the ED for altered mental status from the night prior to admission. per notes, the reported he has appeared more lethargic since evening prior and had to be woken up out of bed to take meds and eat. However he was able to be put to sleep without issues. She noted that he had a fall out of bed. The morning of admission, the patient didnt wake up and was somnolent. He also had emesis and per , reported abd pain. She also states that he hasnt had a BM in 3days despite lactulose. On arrival patient was vomiting and required suctioning. states patient had no fever, cough, SOB, chest pain, hematemesis, BPR, dysuria. CT head was completed and did not show acute changes. Of note, patient was admitted to [facility] last week for therapeutic paracentesis. Was noted to have sscleral icterus, slight jaundice. Most likely toxic metabolic encephalopathy. On labs, ammonia level normal but hemoglobin and hematocrit reduced and suspicious for anemia.GI recommended Rifaximin aand lactulose, viral hepatitis panels as well as possible endoscopy. Also mention of positive blood cultures and ID consult. Patient with postive occult stool and inquired emergent management overnight. Patient currently in ICU, after rectal bleeding, coffee ground emesis noted, pt went for STAT EGD, received multiple blood transfusions and blood products. Remains intubated and on mechanical ventilation in ICU. Continued monitoring of H/H which has stabilized, GI note reviewed and mentioned continued octeotride. Surgery note reviewed and mentioned EGD may be considered for rebleed but if surgery needed may require tertiary care facility. Currently on antibiotics, Ceftriaxone. Has been extubated since 09/22 and comfortable appearing on room air. Patient transferred to telemetry care. He still is awake, alert, can tell me month and year as well as location. Recognizes examiner, mental status improved and appears to be near baseline at this time. Active Medications Ceftriaxone Sodium 1 gm/ (Dextrose) 50 mls @ 100 mls/hr IVPB DAILY [facility]; Protocol Last Admin: 09/27/19 09:02 Dose: 100 mls/hr Insulin Aspart (Novolog Vial Sliding Scale -) 1 vial SQ ACHS [facility]; Protocol Last Admin: 09/28/19 06:36 Dose: Not Given Lactulose (Cephulac (Oral Use)) 20 gm PO QID [facility] Last Admin: 09/27/19 21:17 Dose: 20 gm Metoclopramide HCl (Reglan Injection -) 10 mg IVPUSH Q8H PRN PRN Reason: NAUSEA AND/OR VOMITING Nadolol (Corgard -) 40 mg PO DAILY [facility] Last Admin: 09/27/19 09:46 Dose: 40 mg Pantoprazole Sodium (Protonix Iv) 40 mg IVPUSH BID [facility] Last Admin: 09/27/19 21:17 Dose: 40 mg Rifaximin (Xifaxan -) 200 mg PO TID [facility] Last Admin: 09/28/19 05:40 Dose: 200 mg *Physical Exam Vital Signs Period Temp Pulse Resp BP Sys/Shen Pulse Ox Last 24 Hr 97.8 F-98.4 F 53-60 13-16 112-138/51-76 99-100 GENERAL: sedated and on ventilation HEAD: No signs of trauma, normocephalic, atraumatic EYES: EOMI, scleral icterus, conjunctiva clear ENT: Auricles normal inspection, hearing grossly normal, nares patent, oropharynx clear without exudates. Moist mucosa NECK: Normal ROM, no lymphadenopathy LUNGS: No increased work of breathing, symmetrical chest rise, clear to auscultation bilaterally, no wheezes, crackles or rhonchi HEART: Regular rate and rhythm, normal S1 and S2, no murmurs, peripheral pulses 2+ and equal bilaterally. ABDOMEN: Soft, nondistended, nontender, normoactive bowel sounds. No guarding, no rebound. No masses. No CVAT EXTREMITIES: Normal inspection, Normal range of motion, no edema. No clubbing or cyanosis. NEUROLOGICAL: sedated and on mechanical vent, moves extremities to pain, not following commands, no abnormal movements SKIN: jaundice CBCD WBC 4.2 K/mm3 (4.0-10.0) 09/25/19 06:00 RBC 3.43 M/mm3 (4.00-5.60) L 09/25/19 06:00 Hgb 10.4 GM/dL (11.7-16.9) L 09/25/19 06:00 Hct 30.7 % (35.4-49) L 09/25/19 06:00 MCV 89.4 fl (80-96) 09/25/19 06:00 MCHC 33.7 g/dl (32.0-35.9) 09/25/19 06:00 RDW 17.9 % (11.9-15.9) H 09/25/19 06:00 Plt Count 46 K/MM3 (134-434) L 09/25/19 06:00 MPV 8.9 fl (7.5-11.1) 09/25/19 06:00 CMP Sodium 144 mmol/L (136-145) 09/26/19 15:29 Potassium 3.9 mmol/L (3.5-5.1) 09/26/19 15:29 Chloride 114 mmol/L (98-107) H 09/26/19 15:29 Carbon Dioxide 24 mmol/L (21-32) 09/26/19 15:29 Anion Gap 5 MMOL/L (8-16) L 09/26/19 15:29 BUN 35.2 mg/dL (7-18) H 09/26/19 15:29 Creatinine 1.2 mg/dL (0.55-1.3) 09/26/19 15:29 Random Glucose 230 mg/dL (74-106) H 09/26/19 15:29 Calcium 8.1 mg/dL (8.5-10.1) L 09/26/19 15:29 Total Bilirubin 2.1 mg/dL (0.2-1) H 09/26/19 15:29 AST 64 U/L (15-37) H 09/26/19 15:29 ALT 31 U/L (13-61) 09/26/19 15:29 Alkaline Phosphatase 184 U/L (45-117) H 09/26/19 15:29 Total Protein 6.0 g/dl (6.4-8.2) L 09/26/19 15:29 Albumin 2.5 g/dl (3.4-5.0) L 09/26/19 15:29 CARDIAC ENZYMES Creatine Kinase 268 U/L (26-308) 09/13/19 12:45 Troponin I < 0.02 ng/ml (0.00-0.05) 09/13/19 12:45 Medical Decision Making 68 y/o M with hx of IDDM, HCV, cirrhosis, asthma presenting to the ED for altered mental status from the night prior to admission. per notes, the reported he has appeared more lethargic since evening prior and had to be woken up out of bed to take meds and eat. However he was able to be put to sleep without issues. She noted that he had a fall out of bed. The morning of admission, the patient didnt wake up and was somnolent. He also had emesis and per , reported abd pain. She also states that he hasnt had a BM in 3days despite lactulose. On arrival patient was vomiting and required suctioning. states patient had no fever, cough, SOB, chest pain, hematemesis, BPR, dysuria. CT head was completed and did not show acute changes. Of note, patient was admitted to [facility] last week for therapeutic paracentesis. Was noted to have sscleral icterus, slight jaundice. Most likely toxic metabolic encephalopathy. On labs, ammonia level normal but hemoglobin and hematocrit reduced and suspicious for anemia. Reviewed notes including from GI recommended Rifaximin aand lactulose, viral hepatitis panels as well as possible endoscopy. Also mention of positive blood cultures and ID consult. Patient with postive occult stool and inquired emergent management overnight. Patient currently in ICU, after rectal bleeding, coffee ground emesis noted, pt went for STAT EGD, received multiple blood transfusions and blood products. Remains intubated and on mechanical ventilation in ICU. Continued monitoring of H/H which has stabilized, GI note reviewed and mentioned continued octeotride. Surgery note reviewed and mentioned EGD may be considered for rebleed but if surgery needed may require tertiary care facility. Has been extubated since and comfortable appearing on room air. Patient transferred to telemetry care. Weekend notes reviewed. He still is awake, alert, can tell me month and year as well as location. Recognizes examiner, mental status improved. Continue GI and hematologic optimization. Monitor H and H, tranfuse as needed. Continue to monitor mental status, nneurologically stable and seems to be now at baseline. No further recommendations at this time (
[2019-09-28] MEDS ORDERED: cefTRIAXone SODIUM 1 GM VIAL ONE (09:30)
[2019-09-28] MEDS ORDERED: DEXTROSE 5%-WATER - 50 ML IVPB ONE (09:30)
--- NOTE | 2019-09-28 10:12 | PN ---
Progress Note, Physician Chief Complaint: Events noted Not in distress History of Present Illness: Patient was seen and examined. Awake. Chart was reviewed Denies chest pain or SOB - Current Medication List Current Medications: Active Medications Ceftriaxone Sodium 1 gm/ (Dextrose) 50 mls @ 100 mls/hr IVPB DAILY [facility]; Protocol Last Admin: 09/27/19 09:02 Dose: 100 mls/hr Insulin Aspart (Novolog Vial Sliding Scale -) 1 vial SQ ACHS [facility]; Protocol Last Admin: 09/28/19 06:36 Dose: Not Given Lactulose (Cephulac (Oral Use)) 20 gm PO QID [facility] Last Admin: 09/27/19 21:17 Dose: 20 gm Metoclopramide HCl (Reglan Injection -) 10 mg IVPUSH Q8H PRN PRN Reason: NAUSEA AND/OR VOMITING Nadolol (Corgard -) 40 mg PO DAILY [facility] Last Admin: 09/27/19 09:46 Dose: 40 mg Pantoprazole Sodium (Protonix Iv) 40 mg IVPUSH BID [facility] Last Admin: 09/27/19 21:17 Dose: 40 mg Rifaximin (Xifaxan -) 200 mg PO TID [facility] Last Admin: 09/28/19 05:40 Dose: 200 mg - Objective Vital Signs: Vital Signs Temperature 97.9 F 09/28/19 06:00 Pulse Rate 58 L 09/28/19 06:00 Respiratory Rate 16 09/28/19 06:00 Blood Pressure 112/51 L 09/28/19 06:00 O2 Sat by Pulse Oximetry (%) 99 09/27/19 22:00 Eyes: Yes: PERRL HENT: Yes: Atraumatic Neck: Yes: Supple Cardiovascular: Yes: Regular Rate and Rhythm, S1, S2 Respiratory: Yes: CTA Bilaterally Gastrointestinal: Yes: Normal Bowel Sounds, Soft. No: Tenderness Edema: No Problem List - Problems (1) Acute gastric ulcer with hemorrhage Code(s): K25.0 - ACUTE GASTRIC ULCER WITH HEMORRHAGE (2) Altered mental status Code(s): R41.82 - ALTERED MENTAL STATUS, UNSPECIFIED Qualifiers: Altered mental status type: unspecified Qualified Code(s): R41.82 - Altered mental status, unspecified (3) Anemia Code(s): D64.9 - ANEMIA, UNSPECIFIED (4) GI bleeding Code(s): K92.2 - GASTROINTESTINAL HEMORRHAGE, UNSPECIFIED (5) LBBB (left bundle branch block) Code(s): I44.7 - LEFT BUNDLE-BRANCH BLOCK, UNSPECIFIED (6) Hepatic encephalopathy Code(s): K72.90 - HEPATIC FAILURE, UNSPECIFIED WITHOUT COMA (7) CAD (coronary artery disease) Code(s): I25.10 - ATHSCL HEART DISEASE OF [place] CORONARY ARTERY W/O ANG PCTRS (8) Cirrhosis Code(s): K74.60 - UNSPECIFIED CIRRHOSIS OF LIVER Qualifiers: Hepatic cirrhosis type: unspecified hepatic cirrhosis Ascites presence: with ascites Qualified Code(s): K74.60 - Unspecified cirrhosis of liver; R18.8 - Other ascites (9) Hepatitis C Code(s): B19.20 - UNSPECIFIED VIRAL HEPATITIS C WITHOUT HEPATIC COMA Qualifiers: Viral hepatitis chronicity: chronic Hepatic coma status: without hepatic coma Qualified Code(s): B18.2 - Chronic viral hepatitis C (10) Hypertension Code(s): I10 - ESSENTIAL (PRIMARY) HYPERTENSION Qualifiers: Hypertension type: essential hypertension Qualified Code(s): I10 - Essential (primary) hypertension Assessment/Plan 1. Post acute respiratory failure currently stable 2. Acute blood loss anemia/GI bleed - gastric ulcer, duodenal AVM post clipping and cautery 3. Coronary artery disease/visual coronary artery calcification angina pectoris , stable clinically 4. Diastolic LV dysfunction with clinical class 0 NYHA classification LV failure 5. HTN 6. Complete LBBB 7. Hepatic encephalopathy and cirrhosis 8. Hepatitis C 9. CKD 10. Thrombocytopenia/Coagulopathy related to above noted chronic liver disease 11. Hypernatremia, persistent await AM blood test PLAN: 1. Continue Nadolol 40 mg daily if not contraindicated - CAD and probable portal HTN. 2. Not a candidate for anti-platelet agent 3. Antibiotics 4. Continue PPI 5. Can be transferred to floor care from the cardiovascular point of view Continue present care. No additional recommendation Sandeep Yen MD
--- NOTE | 2019-09-28 10:24 | PN ---
Progress Note, [employer] - Note Progress Note: Pt alert, verbal, doing well with chopped diet/thin liquids. Pt would like his dentures brought from home. Mastication is inefficient without them. 3 oz water (-) Selected Entries 09/27/19 09/27/19 09/27/19 04:00 10:00 10:08 Breakfast 100% Lunch Temperature 98.1 F 98 F 09/27/19 09/27/19 09/27/19 13:20 18:00 20:00 Breakfast Lunch 100% Temperature 98.4 F 97.9 F 09/28/19 09/28/19 02:42 06:00 Breakfast Lunch Temperature 97.8 F 97.9 F Continue chopped diet Obtain dentures for diet upgrade.
[2019-09-28] MEDS: CEFTRIAXONE 1 GM in DEXTROSE 5%-WATER - 50 ML IVPB SCH (10:25)
[2019-09-28] MEDS: PANTOPRAZOLE SODIUM 40 MG VIAL IVPUSH SCH ×2 (10:26→21:24)
[2019-09-28] MEDS: LACTULOSE 20 GM/30 ML UDC (FOR ORAL USE ONLY) PO SCH ×5 (10:26→22:51)
[2019-09-28] MEDS: NADOLOL 40 MG TABLET (FP) PO SCH (10:26)
--- NOTE | 2019-09-28 11:47 | PN ---
Progress Note (short form) - Note Progress Note: PULMONARY Denies shortness of breath, cough or wheezing. Vital Signs Period Temp Pulse Resp BP Sys/Shen Pulse Ox Last 24 Hr 97.8 F-98.4 F 53-60 14-16 112-138/51-76 99-99 Gen: NAD at rest Heart: RRR Lung: decreased breath sounds at the bases Abd: soft, nontender Ext: no edema CBC, BMP 09/25/19 06:00 09/26/19 15:29 Active Medications Ceftriaxone Sodium 1 gm/ (Dextrose) 50 mls @ 100 mls/hr IVPB DAILY [facility]; Protocol Last Admin: 09/28/19 10:25 Dose: 100 mls/hr Insulin Aspart (Novolog Vial Sliding Scale -) 1 vial SQ ACHS [facility]; Protocol Last Admin: 09/28/19 06:36 Dose: Not Given Lactulose (Cephulac (Oral Use)) 20 gm PO QID [facility] Last Admin: 09/28/19 10:26 Dose: 20 gm Metoclopramide HCl (Reglan Injection -) 10 mg IVPUSH Q8H PRN PRN Reason: NAUSEA AND/OR VOMITING Nadolol (Corgard -) 40 mg PO DAILY [facility] Last Admin: 09/28/19 10:26 Dose: 40 mg Pantoprazole Sodium (Protonix Iv) 40 mg IVPUSH BID [facility] Last Admin: 09/28/19 10:26 Dose: 40 mg Rifaximin (Xifaxan -) 200 mg PO TID [facility] Last Admin: 09/28/19 05:40 Dose: 200 mg A/P s/p Acute Respiratory Failure GI Bleed Acute Blood Loss Anemia Gastric Ulcer/Duodenal AVM s/p Clipping/Cautery/Epi injection Hepatic Encephalopathy Liver Cirrhosis Thrombocytopenia/Coagulopathy CKD Volume Overload HTN - continue protonix - monitor H/H - monitor urine output, creatinine - on empiric antibiotics - lactulose, rifaximin - aspiration precautions - DVT prophylaxis
[2019-09-28 14:26] VITALS: BMI 32.8
--- NOTE | 2019-09-28 14:28 | PN ---
Progress Note, Physician History of Present Illness: Pt seen and examined at bedside. He complains of worsening ascites. - Current Medication List Current Medications: Active Medications Ceftriaxone Sodium 1 gm/ (Dextrose) 50 mls @ 100 mls/hr IVPB DAILY [facility]; Protocol Last Admin: 09/28/19 10:25 Dose: 100 mls/hr Insulin Aspart (Novolog Vial Sliding Scale -) 1 vial SQ ACHS [facility]; Protocol Last Admin: 09/28/19 12:53 Dose: 2 units Lactulose (Cephulac (Oral Use)) 20 gm PO QID [facility] Last Admin: 09/28/19 10:26 Dose: 20 gm Metoclopramide HCl (Reglan Injection -) 10 mg IVPUSH Q8H PRN PRN Reason: NAUSEA AND/OR VOMITING Nadolol (Corgard -) 40 mg PO DAILY [facility] Last Admin: 09/28/19 10:26 Dose: 40 mg Pantoprazole Sodium (Protonix Iv) 40 mg IVPUSH BID [facility] Last Admin: 09/28/19 10:26 Dose: 40 mg Rifaximin (Xifaxan -) 200 mg PO TID [facility] Last Admin: 09/28/19 05:40 Dose: 200 mg - Objective Vital Signs: Vital Signs Temperature 98.7 F 09/28/19 10:33 Pulse Rate 58 L 09/28/19 10:33 Respiratory Rate 12 09/28/19 10:33 Blood Pressure 141/59 L 09/28/19 10:33 O2 Sat by Pulse Oximetry (%) 99 09/28/19 09:00 Constitutional: Yes: Calm Eyes: Yes: Conjunctiva Clear HENT: Yes: Atraumatic Neck: Yes: Supple Cardiovascular: Yes: S1, S2 Respiratory: Yes: CTA Bilaterally Gastrointestinal: Yes: Ascites Genitourinary: Yes: WNL Edema: Yes Edema: LLE: 1+, RLE: 1+ Neurological: Yes: Oriented Psychiatric: Yes: Oriented Labs: CBC, BMP 09/25/19 06:00 09/26/19 15:29 INR, PTT INR 1.25 (0.83-1.09) H 09/21/19 06:33 Fibrinogen 175.0 mg/dL (238-498) L 09/19/19 06:20 Assessment/Plan Current Medications Generic Name Dose Route Start Last Admin Trade Name Freq PRN Reason Stop Dose Admin Ceftriaxone Sodium 1 gm/ 50 mls @ 100 mls/hr 09/25/19 10:00 09/28/19 10:25 Dextrose IVPB 100 mls/hr DAILY [facility] Administration Protocol Insulin Aspart 1 vial 09/25/19 07:00 09/28/19 12:53 Novolog Vial Sliding Scale - SQ 2 units ACHS [facility] Administration Protocol Lactulose 20 gm 09/24/19 22:00 09/28/19 14:26 Cephulac (Oral Use) PO 20 gm QID [facility] Administration Metoclopramide HCl 10 mg 09/24/19 23:22 Reglan Injection - IVPUSH Q8H PRN NAUSEA AND/OR VOMITING Nadolol 40 mg 09/26/19 10:00 09/28/19 10:26 Corgard - PO 40 mg DAILY [facility] Administration Pantoprazole Sodium 40 mg 09/25/19 10:00 09/28/19 10:26 Protonix Iv IVPUSH 40 mg BID [facility] Administration Rifaximin 200 mg 09/24/19 22:00 09/28/19 14:26 Xifaxan - PO 200 mg TID [facility] Administration Impression 1. [place] 2. dm 3. gi bleed 4. resp failure 5. hep c 6. liver cirrhosis 7. hypernatremia Plan - pt has worsening ascites and edema - start diuretics - check cmp - cont lactulose/rifiximin - pt tolerating diet
[2019-09-28] MEDS ORDERED: SPIRONOLACTONE 25 MG TABLET (FP) PO SCH (14:45)
[2019-09-28] MEDS: FUROSEMIDE 40 MG TABLET (FP) PO SCH (16:10)
[2019-09-28 17:16] LABS: ALBUMIN 2.4 g/dl (3.4-5.0); BILIRUBIN,TOTAL 2.2 mg/dL (0.2-1); BLOOD UREA NITROGEN 37.2 mg/dL (7-18); CREATININE 1.2 mg/dL (0.55-1.3); MAGNESIUM 2.1 mg/dL (1.8-2.4); POTASSIUM 4.2 mmol/L (3.5-5.1); TOT PROT 6.1 g/dl (6.4-8.2)
--- NOTE | 2019-09-28 17:26 | PN ---
Progress Note, Physician History of Present Illness: doing well - Current Medication List Current Medications: Active Medications Furosemide (Lasix -) 40 mg PO DAILY [facility] Last Admin: 09/28/19 16:10 Dose: 40 mg Ceftriaxone Sodium 1 gm/ (Dextrose) 50 mls @ 100 mls/hr IVPB DAILY [facility]; Protocol Last Admin: 09/28/19 10:25 Dose: 100 mls/hr Insulin Aspart (Novolog Vial Sliding Scale -) 1 vial SQ ACHS [facility]; Protocol Last Admin: 09/28/19 12:53 Dose: 2 units Lactulose (Cephulac (Oral Use)) 20 gm PO QID [facility] Last Admin: 09/28/19 14:26 Dose: 20 gm Metoclopramide HCl (Reglan Injection -) 10 mg IVPUSH Q8H PRN PRN Reason: NAUSEA AND/OR VOMITING Nadolol (Corgard -) 40 mg PO DAILY [facility] Last Admin: 09/28/19 10:26 Dose: 40 mg Pantoprazole Sodium (Protonix Iv) 40 mg IVPUSH BID [facility] Last Admin: 09/28/19 10:26 Dose: 40 mg Rifaximin (Xifaxan -) 200 mg PO TID [facility] Last Admin: 09/28/19 14:26 Dose: 200 mg Spironolactone (Aldactone -) 25 mg PO DAILY [facility] Last Admin: 09/28/19 16:10 Dose: 25 mg - Objective Vital Signs: Vital Signs Temperature 98.2 F 09/28/19 14:00 Pulse Rate 54 L 09/28/19 16:00 Respiratory Rate 11 09/28/19 14:00 Blood Pressure 123/57 L 09/28/19 16:00 O2 Sat by Pulse Oximetry (%) 99 09/28/19 09:00 Constitutional: Yes: No Distress HENT: Yes: Atraumatic Neck: Yes: Supple Cardiovascular: Yes: Regular Rate and Rhythm Respiratory: Yes: CTA Bilaterally Gastrointestinal: Yes: Normal Bowel Sounds, Ascites (geeting worse) Extremities: Yes: WNL Edema: Yes Neurological: Yes: Alert, Oriented Labs: CBC, BMP 09/25/19 06:00 09/28/19 16:00 INR, PTT INR 1.25 (0.83-1.09) H 09/21/19 06:33 Fibrinogen 175.0 mg/dL (238-498) L 09/19/19 06:20 Problem List - Problems (1) Altered mental status Assessment/Plan: DOING WELL Code(s): R41.82 - ALTERED MENTAL STATUS, UNSPECIFIED Qualifiers: Altered mental status type: unspecified Qualified Code(s): R41.82 - Altered mental status, unspecified (2) Aphasia Code(s): R47.01 - APHASIA (3) Hepatic encephalopathy Assessment/Plan: alert Code(s): K72.90 - HEPATIC FAILURE, UNSPECIFIED WITHOUT COMA (4) Cirrhosis Code(s): K74.60 - UNSPECIFIED CIRRHOSIS OF LIVER Qualifiers: Hepatic cirrhosis type: unspecified hepatic cirrhosis Ascites presence: with ascites Qualified Code(s): K74.60 - Unspecified cirrhosis of liver; R18.8 - Other ascites (5) Hepatitis C Code(s): B19.20 - UNSPECIFIED VIRAL HEPATITIS C WITHOUT HEPATIC COMA Qualifiers: Viral hepatitis chronicity: chronic Hepatic coma status: without hepatic coma Qualified Code(s): B18.2 - Chronic viral hepatitis C (6) Hypertension Assessment/Plan: on meds monitor Code(s): I10 - ESSENTIAL (PRIMARY) HYPERTENSION Qualifiers: Hypertension type: essential hypertension Qualified Code(s): I10 - Essential (primary) hypertension (7) Anemia Assessment/Plan: s/p egd s/p prbc transfusion Code(s): D64.9 - ANEMIA, UNSPECIFIED (8) Bacteremia Code(s): R78.81 - BACTEREMIA (9) GI bleeding Code(s): K92.2 - GASTROINTESTINAL HEMORRHAGE, UNSPECIFIED (10) Ascites Assessment/Plan: need gi follow up Code(s): R18.8 - OTHER ASCITES
--- NOTE | 2019-09-28 17:32 | DS ---
Physical Examination Vital Signs: Vital Signs Temperature 98.2 F 09/28/19 14:00 Pulse Rate 54 L 09/28/19 16:00 Respiratory Rate 11 09/28/19 14:00 Blood Pressure 123/57 L 09/28/19 16:00 O2 Sat by Pulse Oximetry (%) 99 09/28/19 09:00 Labs: CBC, BMP 09/25/19 06:00 09/28/19 16:00 Discharge Summary Problems reviewed: Yes Reason For Visit: AMS Current Active Problems Acute blood loss anemia (Acute) Acute gastric ulcer with hemorrhage (Acute) Altered mental status (Acute) Anemia (Acute) Bacteremia (Acute) GI bleeding (Acute) Hemorrhagic shock (Acute) LBBB (left bundle branch block) (Acute) Portal hypertension (Acute) Rectal bleeding (Acute) Respiratory failure (Acute) Condition: Stable - Instructions Diet, Activity, Other Instructions: follow up with his gi team at [facility] follow up pmd 2-3 days Referrals: Cj Khan DO [Staff Physician] - Martinez Horan MD [Primary Care Provider] - - Home Medications Comprehensive Discharge Medication List: Ambulatory Orders Donepezil HCl [Aricept] 5 mg PO DAILY 09/13/19 Furosemide [Lasix -] 40 mg PO BID 09/13/19 Insulin (Levemir) [Levemir Vial] 6 unit SQ DAILY 09/13/19 Insulin (Novolog) [Novolog] 2 units SQ AC 09/13/19 Lactulose (Oral Use) [Cephulac -] 20 gm PO QID 09/13/19 Pantoprazole Sodium [Protonix] 40 mg PO DAILY 09/13/19 Salmeterol/Fluticasone [Advair 100Mcg/50Mcg -] 1 puff IH DAILY 09/13/19 Spironolactone 100 mg PO DAILY 09/13/19 Nadolol [Corgard -] 40 mg PO DAILY #30 tablet 09/28/19 Rifaximin [Xifaxan -] 200 mg PO TID #90 tablet 09/28/19
[2019-09-28] MEDS ORDERED: PT OWN MED DRAWER 7, Y5N ONE (21:07)
[2019-09-29] MEDS: RIFAXIMIN 200 MG TABLET PO SCH ×3 (06:10→21:57)
[2019-09-29] MEDS: INSULIN SLIDING SCALE (NOVOLOG) 1 VIAL SQ SCH ×4 (06:10→21:59)
[2019-09-29 07:23] LABS: ALBUMIN 2.1 g/dl (3.4-5.0); BILIRUBIN,TOTAL 2.1 mg/dL (0.2-1); BLOOD UREA NITROGEN 33.5 mg/dL (7-18); CREATININE 1.2 mg/dL (0.55-1.3); POTASSIUM 3.8 mmol/L (3.5-5.1); TOT PROT 5.4 g/dl (6.4-8.2)
--- NOTE | 2019-09-29 09:09 | PN ---
Progress Note, Physician History of Present Illness: Diuretics restarted for ascites, denies dyspnea. - Current Medication List Current Medications: Active Medications Furosemide (Lasix -) 40 mg PO DAILY [facility] Last Admin: 09/28/19 16:10 Dose: 40 mg Ceftriaxone Sodium 1 gm/ (Dextrose) 50 mls @ 100 mls/hr IVPB DAILY [facility]; Protocol Last Admin: 09/28/19 10:25 Dose: 100 mls/hr Insulin Aspart (Novolog Vial Sliding Scale -) 1 vial SQ ACHS [facility]; Protocol Last Admin: 09/29/19 06:10 Dose: Not Given Lactulose (Cephulac (Oral Use)) 20 gm PO QID [facility] Last Admin: 09/28/19 22:51 Dose: Not Given Metoclopramide HCl (Reglan Injection -) 10 mg IVPUSH Q8H PRN PRN Reason: NAUSEA AND/OR VOMITING Nadolol (Corgard -) 40 mg PO DAILY [facility] Last Admin: 09/28/19 10:26 Dose: 40 mg Pantoprazole Sodium (Protonix Iv) 40 mg IVPUSH BID [facility] Last Admin: 09/28/19 21:24 Dose: 40 mg Rifaximin (Xifaxan -) 200 mg PO TID [facility] Last Admin: 09/29/19 06:10 Dose: 200 mg Spironolactone (Aldactone -) 50 mg PO DAILY [facility] - Objective Vital Signs: Vital Signs Temperature 98 F 09/29/19 06:00 Pulse Rate 60 09/29/19 06:00 Respiratory Rate 19 09/29/19 06:00 Blood Pressure 107/60 09/29/19 06:00 O2 Sat by Pulse Oximetry (%) 99 09/28/19 19:37 Constitutional: Yes: No Distress, Calm Neck: Yes: Supple Cardiovascular: Yes: Regular Rate and Rhythm Respiratory: Yes: Regular, Diminished Gastrointestinal: Yes: Soft, Distention Edema: Yes Edema: LLE: Trace, RLE: Trace Labs: CBC, BMP 09/25/19 06:00 09/29/19 05:50 INR, PTT INR 1.25 (0.83-1.09) H 09/21/19 06:33 Fibrinogen 175.0 mg/dL (238-498) L 09/19/19 06:20 Assessment/Plan 09/20/2019 Echo: Normal LV size with low normal LV fxn, LVEF 50-55%, mild GREG, mild MR, TR Problem List - Problems (1) Acute gastric ulcer with hemorrhage Code(s): K25.0 - ACUTE GASTRIC ULCER WITH HEMORRHAGE (2) Altered mental status Code(s): R41.82 - ALTERED MENTAL STATUS, UNSPECIFIED Qualifiers: Altered mental status type: unspecified Qualified Code(s): R41.82 - Altered mental status, unspecified (3) Anemia Code(s): D64.9 - ANEMIA, UNSPECIFIED (4) GI bleeding Code(s): K92.2 - GASTROINTESTINAL HEMORRHAGE, UNSPECIFIED (5) LBBB (left bundle branch block) Code(s): I44.7 - LEFT BUNDLE-BRANCH BLOCK, UNSPECIFIED (6) Hepatic encephalopathy Code(s): K72.90 - HEPATIC FAILURE, UNSPECIFIED WITHOUT COMA (7) CAD (coronary artery disease) Code(s): I25.10 - ATHSCL HEART DISEASE OF [place] CORONARY ARTERY W/O ANG PCTRS (8) Cirrhosis Code(s): K74.60 - UNSPECIFIED CIRRHOSIS OF LIVER Qualifiers: Hepatic cirrhosis type: unspecified hepatic cirrhosis Ascites presence: with ascites Qualified Code(s): K74.60 - Unspecified cirrhosis of liver; R18.8 - Other ascites (9) Hepatitis C Code(s): B19.20 - UNSPECIFIED VIRAL HEPATITIS C WITHOUT HEPATIC COMA Qualifiers: Viral hepatitis chronicity: chronic Hepatic coma status: without hepatic coma Qualified Code(s): B18.2 - Chronic viral hepatitis C (10) Hypertension Code(s): I10 - ESSENTIAL (PRIMARY) HYPERTENSION Qualifiers: Hypertension type: essential hypertension Qualified Code(s): I10 - Essential (primary) hypertension 1. Post acute respiratory failure currently stable 2. Acute blood loss anemia/GI bleed - gastric ulcer, duodenal AVM post clipping and cautery 3. Coronary artery disease/visual coronary artery calcification angina pectoris , stable clinically 4. Diastolic LV dysfunction with clinical class 0 NYHA classification LV failure 5. HTN 6. Complete LBBB 7. Hepatic encephalopathy and cirrhosis 8. Hepatitis C 9. CKD 10. Thrombocytopenia/Coagulopathy related to above noted chronic liver disease 11. Hypernatremia PLAN: 1. Continue Nadolol 40 mg daily for CAD and probable portal HTN. 2. Not a candidate for anti-platelet agent 3. Antibiotics for SBP prophylaxis and Lasix 40 qd, Aldactone 50 qd 4. Continue PPI, lactulose/rifiximin
[2019-09-29] MEDS ORDERED: cefTRIAXone SODIUM 1 GM VIAL ONE (10:02)
[2019-09-29] MEDS ORDERED: DEXTROSE 5%-WATER - 50 ML IVPB ONE (10:03)
[2019-09-29] MEDS: LACTULOSE 20 GM/30 ML UDC (FOR ORAL USE ONLY) PO SCH ×4 (10:11→21:57)
[2019-09-29] MEDS: SPIRONOLACTONE 25 MG TABLET (FP) PO SCH (10:12)
[2019-09-29] MEDS: PANTOPRAZOLE SODIUM 40 MG VIAL IVPUSH SCH ×2 (10:17→21:57)
[2019-09-29] MEDS: NADOLOL 40 MG TABLET (FP) PO SCH (10:18)
[2019-09-29] MEDS: CEFTRIAXONE 1 GM in DEXTROSE 5%-WATER - 50 ML IVPB SCH (10:19)
[2019-09-29] MEDS: FUROSEMIDE 40 MG TABLET (FP) PO SCH (10:19)
--- NOTE | 2019-09-29 10:46 | PN ---
Progress Note, Physician History of Present Illness: Pt seen and examined at bedside. He is awake and alert. he is asking to go home. - Current Medication List Current Medications: Active Medications Furosemide (Lasix -) 40 mg PO DAILY [facility] Last Admin: 09/29/19 10:19 Dose: 40 mg Ceftriaxone Sodium 1 gm/ (Dextrose) 50 mls @ 100 mls/hr IVPB DAILY [facility]; Protocol Last Admin: 09/29/19 10:19 Dose: 100 mls/hr Insulin Aspart (Novolog Vial Sliding Scale -) 1 vial SQ ACHS [facility]; Protocol Last Admin: 09/29/19 06:10 Dose: Not Given Lactulose (Cephulac (Oral Use)) 20 gm PO QID [facility] Last Admin: 09/29/19 10:11 Dose: 20 gm Metoclopramide HCl (Reglan Injection -) 10 mg IVPUSH Q8H PRN PRN Reason: NAUSEA AND/OR VOMITING Nadolol (Corgard -) 40 mg PO DAILY [facility] Last Admin: 09/29/19 10:18 Dose: 40 mg Pantoprazole Sodium (Protonix Iv) 40 mg IVPUSH BID [facility] Last Admin: 09/29/19 10:17 Dose: 40 mg Rifaximin (Xifaxan -) 200 mg PO TID [facility] Last Admin: 09/29/19 06:10 Dose: 200 mg Spironolactone (Aldactone -) 50 mg PO DAILY [facility] Last Admin: 09/29/19 10:12 Dose: 50 mg - Objective Vital Signs: Vital Signs Temperature 98 F 09/29/19 06:00 Pulse Rate 60 09/29/19 06:00 Respiratory Rate 19 09/29/19 06:00 Blood Pressure 107/60 09/29/19 06:00 O2 Sat by Pulse Oximetry (%) 99 09/28/19 19:37 Constitutional: Yes: Calm Eyes: Yes: Conjunctiva Clear HENT: Yes: Atraumatic Cardiovascular: Yes: S1, S2 Respiratory: Yes: CTA Bilaterally Gastrointestinal: Yes: Ascites Genitourinary: Yes: WNL Edema: Yes Edema: LLE: 1+, RLE: 1+ Neurological: Yes: Oriented Psychiatric: Yes: Oriented Labs: CBC, BMP 09/25/19 06:00 09/29/19 05:50 INR, PTT INR 1.25 (0.83-1.09) H 09/21/19 06:33 Fibrinogen 175.0 mg/dL (238-498) L 09/19/19 06:20 Assessment/Plan Current Medications Generic Name Dose Route Start Last Admin Trade Name Lizbeth PRN Reason Stop Dose Admin Furosemide 40 mg 09/28/19 14:45 09/29/19 10:19 Lasix - PO 40 mg DAILY [facility] Administration Ceftriaxone Sodium 1 gm/ 50 mls @ 100 mls/hr 09/25/19 10:00 09/29/19 10:19 Dextrose IVPB 100 mls/hr DAILY [facility] Administration Protocol Insulin Aspart 1 vial 09/25/19 07:00 09/29/19 06:10 Novolog Vial Sliding Scale - SQ Not Given ACHS [facility] Protocol Lactulose 20 gm 09/24/19 22:00 09/29/19 10:11 Cephulac (Oral Use) PO 20 gm QID [facility] Administration Metoclopramide HCl 10 mg 09/24/19 23:22 Reglan Injection - IVPUSH Q8H PRN NAUSEA AND/OR VOMITING Nadolol 40 mg 09/26/19 10:00 09/29/19 10:18 Corgard - PO 40 mg DAILY [facility] Administration Pantoprazole Sodium 40 mg 09/25/19 10:00 09/29/19 10:17 Protonix Iv IVPUSH 40 mg BID [facility] Administration Rifaximin 200 mg 09/24/19 22:00 09/29/19 06:10 Xifaxan - PO 200 mg TID [facility] Administration Spironolactone 50 mg 09/29/19 10:00 09/29/19 10:12 Aldactone - PO 50 mg DAILY [facility] Administration Impression 1. LAKEISHA 2. dm 3. gi bleed 4. resp failure 5. hep c 6. liver cirrhosis 7. hypernatremia Plan - lasix 40 mg bid - aldactone 50 mg - GI follow up - will need outpt follow up - fluid restriction - cont lactulose/rifiximin - pt tolerating diet
--- NOTE | 2019-09-29 12:22 | PN ---
Progress Note (short form) - Note Progress Note: PULMONARY Denies shortness of breath, cough or wheezing. Vital Signs Period Temp Pulse Resp BP Sys/Shen Pulse Ox Last 24 Hr 97.7 F-98.6 F 54-60 09-21 107-141/57-69 99 Gen: NAD at rest Heart: RRR Lung: decreased breath sounds at the bases Abd: soft, nontender Ext: no edema CBC, BMP 09/25/19 06:00 09/29/19 05:50 Active Medications Furosemide (Lasix -) 40 mg PO DAILY [facility] Ceftriaxone Sodium 1 gm/ (Dextrose) 50 mls @ 100 mls/hr IVPB DAILY [facility]; Protocol Last Admin: 09/29/19 10:19 Dose: 100 mls/hr Insulin Aspart (Novolog Vial Sliding Scale -) 1 vial SQ ACHS [facility]; Protocol Last Admin: 09/29/19 06:10 Dose: Not Given Lactulose (Cephulac (Oral Use)) 20 gm PO QID [facility] Last Admin: 09/29/19 10:11 Dose: 20 gm Metoclopramide HCl (Reglan Injection -) 10 mg IVPUSH Q8H PRN PRN Reason: NAUSEA AND/OR VOMITING Nadolol (Corgard -) 40 mg PO DAILY [facility] Last Admin: 09/29/19 10:18 Dose: 40 mg Pantoprazole Sodium (Protonix Iv) 40 mg IVPUSH BID [facility] Last Admin: 09/29/19 10:17 Dose: 40 mg Rifaximin (Xifaxan -) 200 mg PO TID [facility] Last Admin: 09/29/19 06:10 Dose: 200 mg Spironolactone (Aldactone -) 50 mg PO DAILY [facility] Last Admin: 09/29/19 10:12 Dose: 50 mg A/P s/p Acute Respiratory Failure GI Bleed Acute Blood Loss Anemia Gastric Ulcer/Duodenal AVM s/p Clipping/Cautery/Epi injection Hepatic Encephalopathy Liver Cirrhosis Thrombocytopenia/Coagulopathy CKD Volume Overload HTN - continue protonix - monitor H/H - monitor urine output, creatinine - on empiric antibiotics - lactulose, rifaximin - aspiration precautions - DVT prophylaxis - d/c planning
[2019-09-29] MEDS ORDERED: FUROSEMIDE 40 MG TABLET (FP) PO SCH (14:00)
--- NOTE | 2019-09-29 20:35 | PN ---
Progress Note, Physician History of Present Illness: doing well - Current Medication List Current Medications: Active Medications Furosemide (Lasix -) 40 mg PO DAILY [facility] Ceftriaxone Sodium 1 gm/ (Dextrose) 50 mls @ 100 mls/hr IVPB DAILY [facility]; Protocol Last Admin: 09/29/19 10:19 Dose: 100 mls/hr Insulin Aspart (Novolog Vial Sliding Scale -) 1 vial SQ ACHS [facility]; Protocol Last Admin: 09/29/19 17:51 Dose: Not Given Lactulose (Cephulac (Oral Use)) 20 gm PO QID [facility] Last Admin: 09/29/19 17:50 Dose: 20 gm Metoclopramide HCl (Reglan Injection -) 10 mg IVPUSH Q8H PRN PRN Reason: NAUSEA AND/OR VOMITING Nadolol (Corgard -) 40 mg PO DAILY [facility] Last Admin: 09/29/19 10:18 Dose: 40 mg Pantoprazole Sodium (Protonix Iv) 40 mg IVPUSH BID [facility] Last Admin: 09/29/19 10:17 Dose: 40 mg Rifaximin (Xifaxan -) 200 mg PO TID [facility] Last Admin: 09/29/19 15:00 Dose: 200 mg Spironolactone (Aldactone -) 50 mg PO DAILY [facility] Last Admin: 09/29/19 10:12 Dose: 50 mg - Objective Vital Signs: Vital Signs Temperature 98 F 09/29/19 17:01 Pulse Rate 82 09/29/19 17:01 Respiratory Rate 18 09/29/19 17:01 Blood Pressure 127/62 09/29/19 17:01 O2 Sat by Pulse Oximetry (%) 98 09/29/19 10:00 Constitutional: Yes: No Distress HENT: Yes: Atraumatic Neck: Yes: Supple Cardiovascular: Yes: Regular Rate and Rhythm Respiratory: Yes: CTA Bilaterally Gastrointestinal: Yes: Normal Bowel Sounds, Ascites Extremities: Yes: WNL Edema: Yes Neurological: Yes: Alert, Oriented Labs: CBC, BMP 09/25/19 06:00 09/29/19 05:50 INR, PTT INR 1.25 (0.83-1.09) H 09/21/19 06:33 Fibrinogen 175.0 mg/dL (238-498) L 09/19/19 06:20 Problem List - Problems (1) Altered mental status Assessment/Plan: DOING WELL Code(s): R41.82 - ALTERED MENTAL STATUS, UNSPECIFIED Qualifiers: Altered mental status type: unspecified Qualified Code(s): R41.82 - Altered mental status, unspecified (2) Aphasia Code(s): R47.01 - APHASIA (3) Hepatic encephalopathy Assessment/Plan: alert on meds Code(s): K72.90 - HEPATIC FAILURE, UNSPECIFIED WITHOUT COMA (4) Cirrhosis Assessment/Plan: on meds Code(s): K74.60 - UNSPECIFIED CIRRHOSIS OF LIVER Qualifiers: Hepatic cirrhosis type: unspecified hepatic cirrhosis Ascites presence: with ascites Qualified Code(s): K74.60 - Unspecified cirrhosis of liver; R18.8 - Other ascites (5) Hepatitis C Code(s): B19.20 - UNSPECIFIED VIRAL HEPATITIS C WITHOUT HEPATIC COMA Qualifiers: Viral hepatitis chronicity: chronic Hepatic coma status: without hepatic coma Qualified Code(s): B18.2 - Chronic viral hepatitis C (6) Hypertension Assessment/Plan: on meds monitor Code(s): I10 - ESSENTIAL (PRIMARY) HYPERTENSION Qualifiers: Hypertension type: essential hypertension Qualified Code(s): I10 - Essential (primary) hypertension (7) Anemia Assessment/Plan: s/p egd s/p prbc transfusion Code(s): D64.9 - ANEMIA, UNSPECIFIED (8) Bacteremia Code(s): R78.81 - BACTEREMIA (9) GI bleeding Assessment/Plan: h/h stable Code(s): K92.2 - GASTROINTESTINAL HEMORRHAGE, UNSPECIFIED (10) Ascites Assessment/Plan: need gi follow up Code(s): R18.8 - OTHER ASCITES
[2019-09-29] MEDS ORDERED: morphine SULFATE/PF 0.5 MG/ML (2cc Syringe - QUVA) ONE (20:56)
[2019-09-29] MEDS ORDERED: ceFAZolin SODIUM 1 GM VIAL ONE (20:57)
[2019-09-29] MEDS ORDERED: OXYTOCIN 10 UNITS/ML VIAL ONE (21:17)
[2019-09-29] MEDS ORDERED: ePHEDrine SULFATE 50 MG/1 ML AMPULE ONE (21:18)
[2019-09-29] MEDS ORDERED: PT OWN MED DRAWER 7, Y5N ONE (21:32)
[2019-09-30] MEDS: RIFAXIMIN 200 MG TABLET PO SCH ×3 (06:31→21:03)
[2019-09-30 07:07] LABS: BASO % 0.9 % (0-2.0); EOS % 5.2 % (0-4.5); HEMATOCRIT 27.8 % (35.4-49); HEMOGLOBIN 9.4 GM/dL (11.7-16.9); LYMPH % 18.7 % (8-40); MCH 30.6 pg (25.7-33.7); MEAN PLT VOLUME 9.9 fl (7.5-11.1); MONO % 5.6 % (3.8-10.2); NEUT % 69.6 % (42.8-82.8); PLATELET COUNT 48 K/MM3 (134-434); RBC 3.08 M/mm3 (4.00-5.60); RDW 19.1 % (11.9-15.9); WHITE BLOOD COUNT 5.2 K/mm3 (4.0-10.0)
[2019-09-30 07:32] LABS: ALBUMIN 2.2 g/dl (3.4-5.0); BILIRUBIN,TOTAL 2.7 mg/dL (0.2-1); BLOOD UREA NITROGEN 30.3 mg/dL (7-18); CALCIUM 8.1 mg/dL (8.5-10.1); CREATININE 1.2 mg/dL (0.55-1.3); POTASSIUM 3.7 mmol/L (3.5-5.1); TOT PROT 5.7 g/dl (6.4-8.2)
[2019-09-30] MEDS: INSULIN SLIDING SCALE (NOVOLOG) 1 VIAL SQ SCH ×4 (08:52→21:03)
[2019-09-30] MEDS ORDERED: cefTRIAXone SODIUM 1 GM VIAL ONE (09:11)
[2019-09-30] MEDS ORDERED: DEXTROSE 5%-WATER - 50 ML IVPB ONE (09:11)
[2019-09-30] MEDS ORDERED: PT OWN MED DRAWER 7, Y5N ONE ×4 (09:26→16:39)
--- NOTE | 2019-09-30 09:30 | PN ---
Progress Note (short form) - Note Progress Note: PULMONARY Denies shortness of breath, cough or wheezing. Vital Signs Period Temp Pulse Resp BP Sys/Shen Pulse Ox Last 24 Hr 98 F-98.5 F 49-82 13-19 84-129/50-62 98-100 Gen: NAD at rest Heart: RRR Lung: decreased breath sounds at the bases Abd: soft, nontender Ext: no edema CBC, BMP 09/30/19 05:58 09/30/19 05:58 Active Medications Furosemide (Lasix -) 40 mg PO DAILY [facility] Ceftriaxone Sodium 1 gm/ (Dextrose) 50 mls @ 100 mls/hr IVPB DAILY [facility]; Protocol Last Admin: 09/29/19 10:19 Dose: 100 mls/hr Insulin Aspart (Novolog Vial Sliding Scale -) 1 vial SQ ACHS [facility]; Protocol Last Admin: 09/30/19 08:52 Dose: Not Given Lactulose (Cephulac (Oral Use)) 20 gm PO QID [facility] Last Admin: 09/29/19 21:57 Dose: 20 gm Metoclopramide HCl (Reglan Injection -) 10 mg IVPUSH Q8H PRN PRN Reason: NAUSEA AND/OR VOMITING Nadolol (Corgard -) 40 mg PO DAILY [facility] Last Admin: 09/29/19 10:18 Dose: 40 mg Pantoprazole Sodium (Protonix Iv) 40 mg IVPUSH BID [facility] Last Admin: 09/29/19 21:57 Dose: 40 mg Rifaximin (Xifaxan -) 200 mg PO TID [facility] Last Admin: 09/30/19 06:31 Dose: 200 mg Spironolactone (Aldactone -) 50 mg PO DAILY [facility] Last Admin: 09/29/19 10:12 Dose: 50 mg A/P s/p Acute Respiratory Failure GI Bleed Acute Blood Loss Anemia Gastric Ulcer/Duodenal AVM s/p Clipping/Cautery/Epi injection Hepatic Encephalopathy Liver Cirrhosis Thrombocytopenia/Coagulopathy CKD Volume Overload HTN - continue protonix - monitor H/H - monitor urine output, creatinine - on empiric antibiotics - lactulose, rifaximin - aspiration precautions - DVT prophylaxis - d/c planning
[2019-09-30] MEDS: PANTOPRAZOLE SODIUM 40 MG VIAL IVPUSH SCH ×2 (09:36→21:03)
[2019-09-30] MEDS: LACTULOSE 20 GM/30 ML UDC (FOR ORAL USE ONLY) PO SCH ×4 (09:36→21:03)
[2019-09-30] MEDS: CEFTRIAXONE 1 GM in DEXTROSE 5%-WATER - 50 ML IVPB SCH (09:36)
[2019-09-30] MEDS: SPIRONOLACTONE 25 MG TABLET (FP) PO SCH (09:37)
[2019-09-30] MEDS ORDERED: FUROSEMIDE 40 MG TABLET (FP) PO SCH (10:00)
[2019-09-30] MEDS: NADOLOL 40 MG TABLET (FP) PO SCH (11:48)
--- NOTE | 2019-09-30 12:49 | PN.GI ---
GI Progress Note Subjective: cirrhosis with ascitis, medication adjusted yesturday - Objective Vital Signs: Vital Signs Temperature 98 F 09/29/19 17:01 Pulse Rate 54 L 09/30/19 05:00 Respiratory Rate 13 09/30/19 05:00 Blood Pressure 123/60 09/30/19 05:00 O2 Sat by Pulse Oximetry (%) 100 09/29/19 20:15 Constitutional: No Distress Eyes: Yes: Conjunctiva Clear Neck: Yes: Supple Cardiovascular: Yes: Regular Rate and Rhythm Respiratory: Yes: CTA Bilaterally Gastrointestinal Inspection: Yes: Ascites ...Palpate: Yes: Soft. No: Firm/Rigid, Guarding, Hepatomegaly, Mass, Pulsatile Mass Labs: CBC, BMP 09/30/19 05:58 09/30/19 05:58 INR, PTT INR 1.25 (0.83-1.09) H 09/21/19 06:33 Fibrinogen 175.0 mg/dL (238-498) L 09/19/19 06:20 Problem List - Problems (1) Ascites Assessment/Plan: R> lasix 40mg aldactone 100mg daily weights Code(s): R18.8 - OTHER ASCITES (2) Altered mental status Code(s): R41.82 - ALTERED MENTAL STATUS, UNSPECIFIED Qualifiers: Altered mental status type: unspecified Qualified Code(s): R41.82 - Altered mental status, unspecified
[2019-09-30] MEDS ORDERED: SPIRONOLACTONE 25 MG TABLET (FP) PO SCH (13:15)
--- NOTE | 2019-09-30 14:35 | PN ---
Progress Note, Physician History of Present Illness: Diuretics restarted and increased for ascites with improved abd distension, denies dyspnea. - Current Medication List Current Medications: Active Medications Furosemide (Lasix -) 40 mg PO BID@0600,1400 [facility] Ceftriaxone Sodium 1 gm/ (Dextrose) 50 mls @ 100 mls/hr IVPB DAILY [facility]; Protocol Last Admin: 09/30/19 09:36 Dose: 100 mls/hr Insulin Aspart (Novolog Vial Sliding Scale -) 1 vial SQ ACHS [facility]; Protocol Last Admin: 09/30/19 12:22 Dose: 2 units Lactulose (Cephulac (Oral Use)) 20 gm PO QID [facility] Last Admin: 09/30/19 09:36 Dose: 20 gm Metoclopramide HCl (Reglan Injection -) 10 mg IVPUSH Q8H PRN PRN Reason: NAUSEA AND/OR VOMITING Nadolol (Corgard -) 40 mg PO DAILY [facility] Last Admin: 09/30/19 11:48 Dose: 40 mg Pantoprazole Sodium (Protonix Iv) 40 mg IVPUSH BID [facility] Last Admin: 09/30/19 09:36 Dose: 40 mg Rifaximin (Xifaxan -) 200 mg PO TID [facility] Last Admin: 09/30/19 06:31 Dose: 200 mg Spironolactone (Aldactone -) 100 mg PO DAILY [facility] - Objective Vital Signs: Vital Signs Temperature 98 F 09/29/19 17:01 Pulse Rate 54 L 09/30/19 05:00 Respiratory Rate 13 09/30/19 05:00 Blood Pressure 123/60 09/30/19 05:00 O2 Sat by Pulse Oximetry (%) 100 09/29/19 20:15 Constitutional: Yes: No Distress, Calm Neck: Yes: Supple Cardiovascular: Yes: Regular Rate and Rhythm Respiratory: Yes: Regular, CTA Bilaterally Gastrointestinal: Yes: Normal Bowel Sounds, Distention Edema: No Labs: CBC, BMP 09/30/19 05:58 09/30/19 05:58 INR, PTT INR 1.25 (0.83-1.09) H 09/21/19 06:33 Fibrinogen 175.0 mg/dL (238-498) L 09/19/19 06:20 Problem List - Problems (1) Ascites Code(s): R18.8 - OTHER ASCITES Qualifiers: Ascites type: other type Qualified Code(s): R18.8 - Other ascites Assessment/Plan 09/20/2019 Echo: Normal LV size with low normal LV fxn, LVEF 50-55%, mild GREG, mild MR, TR Problem List - Problems (1) Acute gastric ulcer with hemorrhage Code(s): K25.0 - ACUTE GASTRIC ULCER WITH HEMORRHAGE (2) Altered mental status Code(s): R41.82 - ALTERED MENTAL STATUS, UNSPECIFIED Qualifiers: Altered mental status type: unspecified Qualified Code(s): R41.82 - Altered mental status, unspecified (3) Anemia Code(s): D64.9 - ANEMIA, UNSPECIFIED (4) GI bleeding Code(s): K92.2 - GASTROINTESTINAL HEMORRHAGE, UNSPECIFIED (5) LBBB (left bundle branch block) Code(s): I44.7 - LEFT BUNDLE-BRANCH BLOCK, UNSPECIFIED (6) Hepatic encephalopathy Code(s): K72.90 - HEPATIC FAILURE, UNSPECIFIED WITHOUT COMA (7) CAD (coronary artery disease) Code(s): I25.10 - ATHSCL HEART DISEASE OF [place] CORONARY ARTERY W/O ANG PCTRS (8) Cirrhosis Code(s): K74.60 - UNSPECIFIED CIRRHOSIS OF LIVER Qualifiers: Hepatic cirrhosis type: unspecified hepatic cirrhosis Ascites presence: with ascites Qualified Code(s): K74.60 - Unspecified cirrhosis of liver; R18.8 - Other ascites (9) Hepatitis C Code(s): B19.20 - UNSPECIFIED VIRAL HEPATITIS C WITHOUT HEPATIC COMA Qualifiers: Viral hepatitis chronicity: chronic Hepatic coma status: without hepatic coma Qualified Code(s): B18.2 - Chronic viral hepatitis C (10) Hypertension Code(s): I10 - ESSENTIAL (PRIMARY) HYPERTENSION Qualifiers: Hypertension type: essential hypertension Qualified Code(s): I10 - Essential (primary) hypertension 1. Post acute respiratory failure currently stable 2. Acute blood loss anemia/GI bleed - gastric ulcer, duodenal AVM post clipping and cautery 3. Coronary artery disease/visual coronary artery calcification angina pectoris , stable clinically 4. Diastolic LV dysfunction with clinical class 0 NYHA classification LV failure 5. HTN 6. Complete LBBB 7. Hepatic encephalopathy, cirrhosis and ascites 8. Hepatitis C 9. CKD 10. Thrombocytopenia/Coagulopathy related to above noted chronic liver disease PLAN: 1. Continue Nadolol 40 mg daily for CAD and probable portal HTN. 2. Not a candidate for anti-platelet agent 3. Antibiotics for SBP prophylaxis and Lasix 40 bid, Aldactone 100 qd 4. Continue PPI, lactulose/rifiximin
--- NOTE | 2019-09-30 15:25 | PN ---
Progress Note, Physician History of Present Illness: Pt seen and examined at bedside. He is awake and alert. He denies shortness of breath. - Current Medication List Current Medications: Active Medications Furosemide (Lasix -) 40 mg PO BID@0600,1400 [facility] Ceftriaxone Sodium 1 gm/ (Dextrose) 50 mls @ 100 mls/hr IVPB DAILY [facility]; Protocol Last Admin: 09/30/19 09:36 Dose: 100 mls/hr Insulin Aspart (Novolog Vial Sliding Scale -) 1 vial SQ ACHS [facility]; Protocol Last Admin: 09/30/19 12:22 Dose: 2 units Lactulose (Cephulac (Oral Use)) 20 gm PO QID [facility] Last Admin: 09/30/19 09:36 Dose: 20 gm Metoclopramide HCl (Reglan Injection -) 10 mg IVPUSH Q8H PRN PRN Reason: NAUSEA AND/OR VOMITING Nadolol (Corgard -) 40 mg PO DAILY [facility] Last Admin: 09/30/19 11:48 Dose: 40 mg Pantoprazole Sodium (Protonix Iv) 40 mg IVPUSH BID [facility] Last Admin: 09/30/19 09:36 Dose: 40 mg Rifaximin (Xifaxan -) 200 mg PO TID [facility] Last Admin: 09/30/19 06:31 Dose: 200 mg Spironolactone (Aldactone -) 100 mg PO DAILY [facility] - Objective Vital Signs: Vital Signs Temperature 98 F 09/29/19 17:01 Pulse Rate 54 L 09/30/19 05:00 Respiratory Rate 13 09/30/19 05:00 Blood Pressure 123/60 09/30/19 05:00 O2 Sat by Pulse Oximetry (%) 100 09/29/19 20:15 Constitutional: Yes: Calm Eyes: Yes: Conjunctiva Clear HENT: Yes: Atraumatic Neck: Yes: Supple Cardiovascular: Yes: S1, S2 Respiratory: Yes: CTA Bilaterally Gastrointestinal: Yes: Ascites Genitourinary: Yes: WNL Edema: Yes Edema: LLE: 1+, RLE: 1+ Neurological: Yes: Oriented Psychiatric: Yes: Oriented Labs: CBC, BMP 09/30/19 05:58 09/30/19 05:58 INR, PTT INR 1.25 (0.83-1.09) H 09/21/19 06:33 Fibrinogen 175.0 mg/dL (238-498) L 09/19/19 06:20 Assessment/Plan Current Medications Generic Name Dose Route Start Last Admin Trade Name Freq PRN Reason Stop Dose Admin Furosemide 40 mg 09/30/19 14:00 Lasix - PO BID@0600,1400 [facility] Ceftriaxone Sodium 1 gm/ 50 mls @ 100 mls/hr 09/25/19 10:00 09/30/19 09:36 Dextrose IVPB 100 mls/hr DAILY [facility] Administration Protocol Insulin Aspart 1 vial 09/25/19 07:00 09/30/19 12:22 Novolog Vial Sliding Scale - SQ 2 units ACHS [facility] Administration Protocol Lactulose 20 gm 09/24/19 22:00 09/30/19 09:36 Cephulac (Oral Use) PO 20 gm QID [facility] Administration Metoclopramide HCl 10 mg 09/24/19 23:22 Reglan Injection - IVPUSH Q8H PRN NAUSEA AND/OR VOMITING Nadolol 40 mg 09/26/19 10:00 09/30/19 11:48 Corgard - PO 40 mg DAILY [facility] Administration Pantoprazole Sodium 40 mg 09/25/19 10:00 09/30/19 09:36 Protonix Iv IVPUSH 40 mg BID [facility] Administration Rifaximin 200 mg 09/24/19 22:00 09/30/19 06:31 Xifaxan - PO 200 mg TID [facility] Administration Spironolactone 100 mg 10/01/19 10:00 Aldactone - PO DAILY [facility] Impression 1. LAKEISHA 2. dm 3. gi bleed 4. resp failure 5. hep c 6. liver cirrhosis 7. hypernatremia Plan - monitor lytes - cont lasix and aldactone - GI input appreciated - fluid restriction - cont lactulose/rifiximin - pt tolerating diet
[2019-09-30] MEDS: FUROSEMIDE 40 MG TABLET (FP) PO SCH (15:35)
--- NOTE | 2019-09-30 15:56 | PN ---
Progress Note, Physician - Current Medication List Current Medications: Active Medications Furosemide (Lasix -) 40 mg PO BID@0600,1400 [facility] Last Admin: 09/30/19 15:35 Dose: 40 mg Ceftriaxone Sodium 1 gm/ (Dextrose) 50 mls @ 100 mls/hr IVPB DAILY [facility]; Protocol Last Admin: 09/30/19 09:36 Dose: 100 mls/hr Insulin Aspart (Novolog Vial Sliding Scale -) 1 vial SQ ACHS [facility]; Protocol Last Admin: 09/30/19 12:22 Dose: 2 units Lactulose (Cephulac (Oral Use)) 20 gm PO QID [facility] Last Admin: 09/30/19 15:35 Dose: 20 gm Metoclopramide HCl (Reglan Injection -) 10 mg IVPUSH Q8H PRN PRN Reason: NAUSEA AND/OR VOMITING Nadolol (Corgard -) 40 mg PO DAILY [facility] Last Admin: 09/30/19 11:48 Dose: 40 mg Pantoprazole Sodium (Protonix Iv) 40 mg IVPUSH BID [facility] Last Admin: 09/30/19 09:36 Dose: 40 mg Rifaximin (Xifaxan -) 200 mg PO TID [facility] Last Admin: 09/30/19 06:31 Dose: 200 mg Spironolactone (Aldactone -) 100 mg PO DAILY [facility] - Objective Vital Signs: Vital Signs Temperature 98 F 09/29/19 17:01 Pulse Rate 54 L 09/30/19 05:00 Respiratory Rate 13 09/30/19 05:00 Blood Pressure 123/60 09/30/19 05:00 O2 Sat by Pulse Oximetry (%) 100 09/29/19 20:15 Constitutional: Yes: No Distress HENT: Yes: Atraumatic Neck: Yes: Supple Cardiovascular: Yes: Regular Rate and Rhythm Respiratory: Yes: CTA Bilaterally Gastrointestinal: Yes: Normal Bowel Sounds, Ascites Extremities: Yes: WNL Edema: Yes Edema: LLE: Trace, RLE: Trace Peripheral Pulses WNL: Yes Neurological: Yes: Alert, Oriented Labs: CBC, BMP 09/30/19 05:58 09/30/19 05:58 INR, PTT INR 1.25 (0.83-1.09) H 09/21/19 06:33 Fibrinogen 175.0 mg/dL (238-498) L 09/19/19 06:20 Problem List - Problems (1) Altered mental status Assessment/Plan: DOING WELL Code(s): R41.82 - ALTERED MENTAL STATUS, UNSPECIFIED Qualifiers: Altered mental status type: unspecified Qualified Code(s): R41.82 - Altered mental status, unspecified (2) Aphasia Code(s): R47.01 - APHASIA (3) Hepatic encephalopathy Assessment/Plan: alert on meds Code(s): K72.90 - HEPATIC FAILURE, UNSPECIFIED WITHOUT COMA (4) Cirrhosis Assessment/Plan: on meds Code(s): K74.60 - UNSPECIFIED CIRRHOSIS OF LIVER Qualifiers: Hepatic cirrhosis type: unspecified hepatic cirrhosis Ascites presence: with ascites Qualified Code(s): K74.60 - Unspecified cirrhosis of liver; R18.8 - Other ascites (5) Hepatitis C Code(s): B19.20 - UNSPECIFIED VIRAL HEPATITIS C WITHOUT HEPATIC COMA Qualifiers: Viral hepatitis chronicity: chronic Hepatic coma status: without hepatic coma Qualified Code(s): B18.2 - Chronic viral hepatitis C (6) Hypertension Code(s): I10 - ESSENTIAL (PRIMARY) HYPERTENSION Qualifiers: Hypertension type: essential hypertension Qualified Code(s): I10 - Essential (primary) hypertension (7) Anemia Code(s): D64.9 - ANEMIA, UNSPECIFIED (8) Bacteremia Assessment/Plan: d/w id no need for abx Code(s): R78.81 - BACTEREMIA (9) GI bleeding Assessment/Plan: h/h stable Code(s): K92.2 - GASTROINTESTINAL HEMORRHAGE, UNSPECIFIED (10) Ascites Code(s): R18.8 - OTHER ASCITES Qualifiers: Ascites type: other type Qualified Code(s): R18.8 - Other ascites
[2019-10-01] MEDS: FUROSEMIDE 40 MG TABLET (FP) PO SCH ×2 (05:51→15:58)
[2019-10-01] MEDS: RIFAXIMIN 200 MG TABLET PO SCH ×3 (05:51→21:28)
[2019-10-01] MEDS: INSULIN SLIDING SCALE (NOVOLOG) 1 VIAL SQ SCH ×4 (06:15→21:28)
[2019-10-01 07:29] LABS: ALBUMIN 2.2 g/dl (3.4-5.0); BILIRUBIN,TOTAL 2.5 mg/dL (0.2-1); BLOOD UREA NITROGEN 29.6 mg/dL (7-18); CALCIUM 8.5 mg/dL (8.5-10.1); CREATININE 1.2 mg/dL (0.55-1.3); POTASSIUM 4.6 mmol/L (3.5-5.1); TOT PROT 5.9 g/dl (6.4-8.2)
[2019-10-01] MEDS ORDERED: PT OWN MED DRAWER 7, Y5N ONE ×2 (10:34→21:02)
[2019-10-01] MEDS ORDERED: DEXTROSE 5%-WATER - 50 ML IVPB ONE (10:34)
[2019-10-01] MEDS ORDERED: cefTRIAXone SODIUM 1 GM VIAL ONE (10:34)
[2019-10-01] MEDS: CEFTRIAXONE 1 GM in DEXTROSE 5%-WATER - 50 ML IVPB SCH (10:38)
[2019-10-01] MEDS: LACTULOSE 20 GM/30 ML UDC (FOR ORAL USE ONLY) PO SCH ×4 (10:38→21:32)
[2019-10-01] MEDS: SPIRONOLACTONE 25 MG TABLET (FP) PO SCH (10:39)
[2019-10-01] MEDS: NADOLOL 40 MG TABLET (FP) PO SCH (10:40)
[2019-10-01] MEDS: PANTOPRAZOLE SODIUM 40 MG VIAL IVPUSH SCH ×2 (10:40→21:28)
--- NOTE | 2019-10-01 12:24 | PN ---
Progress Note, Physician Chief Complaint: No complaints, resting confortably. History of Present Illness: Diuretics restarted and increased for ascites with improved abd distension, denies dyspnea. - Current Medication List Current Medications: Active Medications Furosemide (Lasix -) 40 mg PO BID@0600,1400 [facility] Last Admin: 10/01/19 05:51 Dose: 40 mg Ceftriaxone Sodium 1 gm/ (Dextrose) 50 mls @ 100 mls/hr IVPB DAILY [facility]; Protocol Last Admin: 10/01/19 10:38 Dose: 100 mls/hr Insulin Aspart (Novolog Vial Sliding Scale -) 1 vial SQ ACHS [facility]; Protocol Last Admin: 10/01/19 12:13 Dose: 2 units Lactulose (Cephulac (Oral Use)) 20 gm PO QID [facility] Last Admin: 10/01/19 10:38 Dose: 20 gm Metoclopramide HCl (Reglan Injection -) 10 mg IVPUSH Q8H PRN PRN Reason: NAUSEA AND/OR VOMITING Nadolol (Corgard -) 40 mg PO DAILY [facility] Last Admin: 10/01/19 10:40 Dose: 40 mg Pantoprazole Sodium (Protonix Iv) 40 mg IVPUSH BID [facility] Last Admin: 10/01/19 10:40 Dose: 40 mg Rifaximin (Xifaxan -) 200 mg PO TID [facility] Last Admin: 10/01/19 05:51 Dose: 200 mg Spironolactone (Aldactone -) 100 mg PO DAILY [facility] Last Admin: 10/01/19 10:39 Dose: 100 mg - Objective Vital Signs: Vital Signs Temperature 98.4 F 10/01/19 06:00 Pulse Rate 50 L 10/01/19 06:00 Respiratory Rate 19 10/01/19 06:00 Blood Pressure 131/51 L 10/01/19 06:00 O2 Sat by Pulse Oximetry (%) 99 10/01/19 09:00 Constitutional: Yes: No Distress, Calm, Thin Neck: Yes: Supple Cardiovascular: Yes: Regular Rate and Rhythm Respiratory: Yes: Regular, CTA Bilaterally Gastrointestinal: Yes: Normal Bowel Sounds, Soft, Distention Edema: No Labs: CBC, BMP 09/30/19 05:58 10/01/19 06:30 INR, PTT INR 1.25 (0.83-1.09) H 09/21/19 06:33 Fibrinogen 175.0 mg/dL (238-498) L 09/19/19 06:20 - ....Imaging EKG: Report Reviewed (Tele: NSR) Problem List - Problems (1) Ascites Code(s): R18.8 - OTHER ASCITES Qualifiers: Qualified Code(s): R18.8 - Other ascites Assessment/Plan 09/20/2019 Echo: Normal LV size with low normal LV fxn, LVEF 50-55%, mild GREG, mild MR, TR Problem List - Problems (1) Acute gastric ulcer with hemorrhage Code(s): K25.0 - ACUTE GASTRIC ULCER WITH HEMORRHAGE (2) Altered mental status Code(s): R41.82 - ALTERED MENTAL STATUS, UNSPECIFIED Qualifiers: Altered mental status type: unspecified Qualified Code(s): R41.82 - Altered mental status, unspecified (3) Anemia Code(s): D64.9 - ANEMIA, UNSPECIFIED (4) GI bleeding Code(s): K92.2 - GASTROINTESTINAL HEMORRHAGE, UNSPECIFIED (5) LBBB (left bundle branch block) Code(s): I44.7 - LEFT BUNDLE-BRANCH BLOCK, UNSPECIFIED (6) Hepatic encephalopathy Code(s): K72.90 - HEPATIC FAILURE, UNSPECIFIED WITHOUT COMA (7) CAD (coronary artery disease) Code(s): I25.10 - ATHSCL HEART DISEASE OF [place] CORONARY ARTERY W/O ANG PCTRS (8) Cirrhosis Code(s): K74.60 - UNSPECIFIED CIRRHOSIS OF LIVER Qualifiers: Hepatic cirrhosis type: unspecified hepatic cirrhosis Ascites presence: with ascites Qualified Code(s): K74.60 - Unspecified cirrhosis of liver; R18.8 - Other ascites (9) Hepatitis C Code(s): B19.20 - UNSPECIFIED VIRAL HEPATITIS C WITHOUT HEPATIC COMA Qualifiers: Viral hepatitis chronicity: chronic Hepatic coma status: without hepatic coma Qualified Code(s): B18.2 - Chronic viral hepatitis C (10) Hypertension Code(s): I10 - ESSENTIAL (PRIMARY) HYPERTENSION Qualifiers: Hypertension type: essential hypertension Qualified Code(s): I10 - Essential (primary) hypertension 1. Post acute respiratory failure currently stable 2. Acute blood loss anemia/GI bleed - gastric ulcer, duodenal AVM post clipping and cautery 3. Coronary artery disease/visual coronary artery calcification angina pectoris , stable clinically 4. Diastolic LV dysfunction with clinical class 0 NYHA classification LV failure 5. HTN 6. Complete LBBB 7. Hepatic encephalopathy, cirrhosis and ascites 8. Hepatitis C 9. CKD 10. Thrombocytopenia/Coagulopathy related to above noted chronic liver disease PLAN: 1. Continue Nadolol 40 mg daily for CAD and probable portal HTN. 2. Not a candidate for anti-platelet agent 3. Antibiotics for SBP prophylaxis and Lasix 40 bid, Aldactone 100 qd 4. Continue PPI, lactulose/rifiximin
--- NOTE | 2019-10-01 12:27 | PN ---
Progress Note, Physician History of Present Illness: Pt seen and examined at bedside. He is awake and alert. He denies shortness of breath. - Current Medication List Current Medications: Active Medications Furosemide (Lasix -) 40 mg PO BID@0600,1400 [facility] Last Admin: 10/01/19 05:51 Dose: 40 mg Ceftriaxone Sodium 1 gm/ (Dextrose) 50 mls @ 100 mls/hr IVPB DAILY [facility]; Protocol Last Admin: 10/01/19 10:38 Dose: 100 mls/hr Insulin Aspart (Novolog Vial Sliding Scale -) 1 vial SQ ACHS [facility]; Protocol Last Admin: 10/01/19 12:13 Dose: 2 units Lactulose (Cephulac (Oral Use)) 20 gm PO QID [facility] Last Admin: 10/01/19 10:38 Dose: 20 gm Metoclopramide HCl (Reglan Injection -) 10 mg IVPUSH Q8H PRN PRN Reason: NAUSEA AND/OR VOMITING Nadolol (Corgard -) 40 mg PO DAILY [facility] Last Admin: 10/01/19 10:40 Dose: 40 mg Pantoprazole Sodium (Protonix Iv) 40 mg IVPUSH BID [facility] Last Admin: 10/01/19 10:40 Dose: 40 mg Rifaximin (Xifaxan -) 200 mg PO TID [facility] Last Admin: 10/01/19 05:51 Dose: 200 mg Spironolactone (Aldactone -) 100 mg PO DAILY [facility] Last Admin: 10/01/19 10:39 Dose: 100 mg - Objective Vital Signs: Vital Signs Temperature 98.4 F 10/01/19 06:00 Pulse Rate 50 L 10/01/19 06:00 Respiratory Rate 19 10/01/19 06:00 Blood Pressure 131/51 L 10/01/19 06:00 O2 Sat by Pulse Oximetry (%) 99 10/01/19 09:00 Constitutional: Yes: Calm Eyes: Yes: Conjunctiva Clear HENT: Yes: Atraumatic Neck: Yes: Supple Cardiovascular: Yes: S1, S2 Respiratory: Yes: CTA Bilaterally Gastrointestinal: Yes: Normal Bowel Sounds, Soft, Ascites Genitourinary: Yes: WNL Musculoskeletal: Yes: WNL Edema: Yes Edema: LLE: 1+, RLE: 1+ Neurological: Yes: Oriented Psychiatric: Yes: Oriented Labs: CBC, BMP 09/30/19 05:58 10/01/19 06:30 INR, PTT INR 1.25 (0.83-1.09) H 09/21/19 06:33 Fibrinogen 175.0 mg/dL (238-498) L 09/19/19 06:20 Assessment/Plan Current Medications Generic Name Dose Route Start Last Admin Trade Name Ritoq PRN Reason Stop Dose Admin Furosemide 40 mg 09/30/19 14:00 10/01/19 05:51 Lasix - PO 40 mg BID@0600,1400 [facility] Administration Ceftriaxone Sodium 1 gm/ 50 mls @ 100 mls/hr 09/25/19 10:00 10/01/19 10:38 Dextrose IVPB 100 mls/hr DAILY [facility] Administration Protocol Insulin Aspart 1 vial 09/25/19 07:00 10/01/19 12:13 Novolog Vial Sliding Scale - SQ 2 units ACHS [facility] Administration Protocol Lactulose 20 gm 09/24/19 22:00 10/01/19 10:38 Cephulac (Oral Use) PO 20 gm QID [facility] Administration Metoclopramide HCl 10 mg 09/24/19 23:22 Reglan Injection - IVPUSH Q8H PRN NAUSEA AND/OR VOMITING Nadolol 40 mg 09/26/19 10:00 10/01/19 10:40 Corgard - PO 40 mg DAILY [facility] Administration Pantoprazole Sodium 40 mg 09/25/19 10:00 10/01/19 10:40 Protonix Iv IVPUSH 40 mg BID [facility] Administration Rifaximin 200 mg 09/24/19 22:00 10/01/19 05:51 Xifaxan - PO 200 mg TID [facility] Administration Spironolactone 100 mg 10/01/19 10:00 10/01/19 10:39 Aldactone - PO 100 mg DAILY [facility] Administration Impression 1. LAEKISHA 2. dm 3. gi bleed 4. resp failure 5. hep c 6. liver cirrhosis 7. hypernatremia Plan - cont lasix - cont aldactone - monitor volume status - monitor lytes - renal function stable - will follow PRN
--- NOTE | 2019-10-01 13:02 | PN ---
Progress Note, Physician - Current Medication List Current Medications: Active Medications Furosemide (Lasix -) 40 mg PO BID@0600,1400 [facility] Last Admin: 10/01/19 05:51 Dose: 40 mg Ceftriaxone Sodium 1 gm/ (Dextrose) 50 mls @ 100 mls/hr IVPB DAILY [facility]; Protocol Last Admin: 10/01/19 10:38 Dose: 100 mls/hr Insulin Aspart (Novolog Vial Sliding Scale -) 1 vial SQ ACHS [facility]; Protocol Last Admin: 10/01/19 12:13 Dose: 2 units Lactulose (Cephulac (Oral Use)) 20 gm PO QID [facility] Last Admin: 10/01/19 10:38 Dose: 20 gm Metoclopramide HCl (Reglan Injection -) 10 mg IVPUSH Q8H PRN PRN Reason: NAUSEA AND/OR VOMITING Nadolol (Corgard -) 40 mg PO DAILY [facility] Last Admin: 10/01/19 10:40 Dose: 40 mg Pantoprazole Sodium (Protonix Iv) 40 mg IVPUSH BID [facility] Last Admin: 10/01/19 10:40 Dose: 40 mg Rifaximin (Xifaxan -) 200 mg PO TID [facility] Last Admin: 10/01/19 05:51 Dose: 200 mg Spironolactone (Aldactone -) 100 mg PO DAILY [facility] Last Admin: 10/01/19 10:39 Dose: 100 mg - Objective Vital Signs: Vital Signs Temperature 98.4 F 10/01/19 06:00 Pulse Rate 58 L 10/01/19 10:00 Respiratory Rate 18 10/01/19 10:00 Blood Pressure 133/51 L 10/01/19 10:00 O2 Sat by Pulse Oximetry (%) 99 10/01/19 09:00 Constitutional: Yes: No Distress HENT: Yes: Atraumatic Neck: Yes: Supple Cardiovascular: Yes: Regular Rate and Rhythm Respiratory: Yes: CTA Bilaterally Gastrointestinal: Yes: Normal Bowel Sounds, Ascites (improved) Extremities: Yes: WNL Edema: No Neurological: Yes: Alert, Oriented Labs: CBC, BMP 09/30/19 05:58 10/01/19 06:30 INR, PTT INR 1.25 (0.83-1.09) H 09/21/19 06:33 Fibrinogen 175.0 mg/dL (238-498) L 09/19/19 06:20 Problem List - Problems (1) Altered mental status Assessment/Plan: DOING WELL Code(s): R41.82 - ALTERED MENTAL STATUS, UNSPECIFIED Qualifiers: Altered mental status type: unspecified Qualified Code(s): R41.82 - Altered mental status, unspecified (2) Aphasia Code(s): R47.01 - APHASIA (3) Hepatic encephalopathy Assessment/Plan: alert on meds Code(s): K72.90 - HEPATIC FAILURE, UNSPECIFIED WITHOUT COMA (4) Cirrhosis Code(s): K74.60 - UNSPECIFIED CIRRHOSIS OF LIVER Qualifiers: Hepatic cirrhosis type: unspecified hepatic cirrhosis Ascites presence: with ascites Qualified Code(s): K74.60 - Unspecified cirrhosis of liver; R18.8 - Other ascites (5) Hepatitis C Code(s): B19.20 - UNSPECIFIED VIRAL HEPATITIS C WITHOUT HEPATIC COMA Qualifiers: Viral hepatitis chronicity: chronic Hepatic coma status: without hepatic coma Qualified Code(s): B18.2 - Chronic viral hepatitis C (6) Hypertension Assessment/Plan: on meds monitor Code(s): I10 - ESSENTIAL (PRIMARY) HYPERTENSION Qualifiers: Hypertension type: essential hypertension Qualified Code(s): I10 - Essential (primary) hypertension (7) Anemia Code(s): D64.9 - ANEMIA, UNSPECIFIED (8) Bacteremia Code(s): R78.81 - BACTEREMIA (9) GI bleeding Assessment/Plan: h/h stable Code(s): K92.2 - GASTROINTESTINAL HEMORRHAGE, UNSPECIFIED (10) Ascites Assessment/Plan: on diuretics doing well Code(s): R18.8 - OTHER ASCITES Qualifiers: Ascites type: other type Qualified Code(s): R18.8 - Other ascites
[2019-10-02] MEDS: RIFAXIMIN 200 MG TABLET PO SCH ×3 (06:13→21:06)
[2019-10-02] MEDS: INSULIN SLIDING SCALE (NOVOLOG) 1 VIAL SQ SCH ×4 (06:13→21:06)
[2019-10-02] MEDS: FUROSEMIDE 40 MG TABLET (FP) PO SCH ×2 (06:17→13:51)
[2019-10-02] MEDS ORDERED: PT OWN MED DRAWER 7, Y5N ONE ×2 (10:08→20:58)
[2019-10-02] MEDS: NADOLOL 40 MG TABLET (FP) PO SCH (10:14)
[2019-10-02] MEDS: PANTOPRAZOLE SODIUM 40 MG VIAL IVPUSH SCH ×2 (10:14→21:06)
[2019-10-02] MEDS: SPIRONOLACTONE 25 MG TABLET (FP) PO SCH (10:14)
[2019-10-02] MEDS: LACTULOSE 20 GM/30 ML UDC (FOR ORAL USE ONLY) PO SCH ×4 (10:15→21:06)
--- NOTE | 2019-10-02 14:39 | PN ---
Progress Note, Physician - Current Medication List Current Medications: Active Medications Furosemide (Lasix -) 40 mg PO BID@0600,1400 [facility] Last Admin: 10/02/19 13:51 Dose: 40 mg Insulin Aspart (Novolog Vial Sliding Scale -) 1 vial SQ ACHS [facility]; Protocol Last Admin: 10/02/19 11:44 Dose: 2 units Lactulose (Cephulac (Oral Use)) 20 gm PO QID [facility] Last Admin: 10/02/19 13:47 Dose: Not Given Metoclopramide HCl (Reglan Injection -) 10 mg IVPUSH Q8H PRN PRN Reason: NAUSEA AND/OR VOMITING Nadolol (Corgard -) 40 mg PO DAILY [facility] Last Admin: 10/02/19 10:14 Dose: 40 mg Pantoprazole Sodium (Protonix Iv) 40 mg IVPUSH BID [facility] Last Admin: 10/02/19 10:14 Dose: 40 mg Rifaximin (Xifaxan -) 200 mg PO TID [facility] Last Admin: 10/02/19 13:51 Dose: 200 mg Spironolactone (Aldactone -) 100 mg PO DAILY [facility] Last Admin: 10/02/19 10:14 Dose: 100 mg - Objective Vital Signs: Vital Signs Temperature 98.1 F 10/02/19 14:00 Pulse Rate 64 10/02/19 14:00 Respiratory Rate 14 10/02/19 14:00 Blood Pressure 134/63 10/02/19 14:00 O2 Sat by Pulse Oximetry (%) 98 10/02/19 08:48 Constitutional: Yes: No Distress HENT: Yes: Atraumatic Neck: Yes: Supple Cardiovascular: Yes: Regular Rate and Rhythm Respiratory: Yes: CTA Bilaterally Gastrointestinal: Yes: Normal Bowel Sounds Extremities: Yes: WNL Labs: CBC, BMP 09/30/19 05:58 10/01/19 06:30 INR, PTT INR 1.25 (0.83-1.09) H 09/21/19 06:33 Fibrinogen 175.0 mg/dL (238-498) L 09/19/19 06:20 Problem List - Problems (1) Altered mental status Assessment/Plan: DOING WELL Code(s): R41.82 - ALTERED MENTAL STATUS, UNSPECIFIED Qualifiers: Altered mental status type: unspecified Qualified Code(s): R41.82 - Altered mental status, unspecified (2) Aphasia Code(s): R47.01 - APHASIA (3) Hepatic encephalopathy Assessment/Plan: alert on meds Code(s): K72.90 - HEPATIC FAILURE, UNSPECIFIED WITHOUT COMA (4) Cirrhosis Code(s): K74.60 - UNSPECIFIED CIRRHOSIS OF LIVER Qualifiers: Hepatic cirrhosis type: unspecified hepatic cirrhosis Ascites presence: with ascites Qualified Code(s): K74.60 - Unspecified cirrhosis of liver; R18.8 - Other ascites (5) Hepatitis C Code(s): B19.20 - UNSPECIFIED VIRAL HEPATITIS C WITHOUT HEPATIC COMA Qualifiers: Viral hepatitis chronicity: chronic Hepatic coma status: without hepatic coma Qualified Code(s): B18.2 - Chronic viral hepatitis C (6) Hypertension Assessment/Plan: on meds monitor Code(s): I10 - ESSENTIAL (PRIMARY) HYPERTENSION Qualifiers: Hypertension type: essential hypertension Qualified Code(s): I10 - Essential (primary) hypertension (7) Anemia Assessment/Plan: s/p egd s/p prbc transfusion Code(s): D64.9 - ANEMIA, UNSPECIFIED (8) Bacteremia Assessment/Plan: d/w id no need for abx Code(s): R78.81 - BACTEREMIA (9) GI bleeding Code(s): K92.2 - GASTROINTESTINAL HEMORRHAGE, UNSPECIFIED (10) Ascites Code(s): R18.8 - OTHER ASCITES Qualifiers: Ascites type: other type Qualified Code(s): R18.8 - Other ascites
--- NOTE | 2019-10-02 15:25 | PN ---
Progress Note, Physician Chief Complaint: No complaints, resting comfortably. History of Present Illness: Diuretics restarted and increased for ascites with improved abd distension, denies dyspnea. - Current Medication List Current Medications: Active Medications Furosemide (Lasix -) 40 mg PO BID@0600,1400 [facility] Last Admin: 10/02/19 13:51 Dose: 40 mg Insulin Aspart (Novolog Vial Sliding Scale -) 1 vial SQ ACHS [facility]; Protocol Last Admin: 10/02/19 11:44 Dose: 2 units Lactulose (Cephulac (Oral Use)) 20 gm PO QID [facility] Last Admin: 10/02/19 13:47 Dose: Not Given Metoclopramide HCl (Reglan Injection -) 10 mg IVPUSH Q8H PRN PRN Reason: NAUSEA AND/OR VOMITING Nadolol (Corgard -) 40 mg PO DAILY [facility] Last Admin: 10/02/19 10:14 Dose: 40 mg Pantoprazole Sodium (Protonix Iv) 40 mg IVPUSH BID [facility] Last Admin: 10/02/19 10:14 Dose: 40 mg Rifaximin (Xifaxan -) 200 mg PO TID [facility] Last Admin: 10/02/19 13:51 Dose: 200 mg Spironolactone (Aldactone -) 100 mg PO DAILY [facility] Last Admin: 10/02/19 10:14 Dose: 100 mg - Objective Vital Signs: Vital Signs Temperature 98.1 F 10/02/19 14:00 Pulse Rate 64 10/02/19 14:00 Respiratory Rate 14 10/02/19 14:00 Blood Pressure 134/63 10/02/19 14:00 O2 Sat by Pulse Oximetry (%) 98 10/02/19 08:48 Constitutional: Yes: No Distress, Calm Neck: Yes: Supple Cardiovascular: Yes: Regular Rate and Rhythm Respiratory: Yes: Regular, Diminished Gastrointestinal: Yes: Normal Bowel Sounds, Soft, Distention Edema: No Labs: CBC, BMP 09/30/19 05:58 10/01/19 06:30 INR, PTT INR 1.25 (0.83-1.09) H 09/21/19 06:33 Fibrinogen 175.0 mg/dL (238-498) L 09/19/19 06:20 Problem List - Problems (1) Ascites Code(s): R18.8 - OTHER ASCITES Qualifiers: Ascites type: other type Qualified Code(s): R18.8 - Other ascites Assessment/Plan 09/20/2019 Echo: Normal LV size with low normal LV fxn, LVEF 50-55%, mild GREG, mild MR, TR Problem List - Problems (1) Acute gastric ulcer with hemorrhage Code(s): K25.0 - ACUTE GASTRIC ULCER WITH HEMORRHAGE (2) Altered mental status Code(s): R41.82 - ALTERED MENTAL STATUS, UNSPECIFIED Qualifiers: Altered mental status type: unspecified Qualified Code(s): R41.82 - Altered mental status, unspecified (3) Anemia Code(s): D64.9 - ANEMIA, UNSPECIFIED (4) GI bleeding Code(s): K92.2 - GASTROINTESTINAL HEMORRHAGE, UNSPECIFIED (5) LBBB (left bundle branch block) Code(s): I44.7 - LEFT BUNDLE-BRANCH BLOCK, UNSPECIFIED (6) Hepatic encephalopathy Code(s): K72.90 - HEPATIC FAILURE, UNSPECIFIED WITHOUT COMA (7) CAD (coronary artery disease) Code(s): I25.10 - ATHSCL HEART DISEASE OF [place] CORONARY ARTERY W/O ANG PCTRS (8) Cirrhosis Code(s): K74.60 - UNSPECIFIED CIRRHOSIS OF LIVER Qualifiers: Hepatic cirrhosis type: unspecified hepatic cirrhosis Ascites presence: with ascites Qualified Code(s): K74.60 - Unspecified cirrhosis of liver; R18.8 - Other ascites (9) Hepatitis C Code(s): B19.20 - UNSPECIFIED VIRAL HEPATITIS C WITHOUT HEPATIC COMA Qualifiers: Viral hepatitis chronicity: chronic Hepatic coma status: without hepatic coma Qualified Code(s): B18.2 - Chronic viral hepatitis C (10) Hypertension Code(s): I10 - ESSENTIAL (PRIMARY) HYPERTENSION Qualifiers: Hypertension type: essential hypertension Qualified Code(s): I10 - Essential (primary) hypertension 1. Post acute respiratory failure currently stable 2. Acute blood loss anemia/GI bleed - gastric ulcer, duodenal AVM post clipping and cautery 3. Coronary artery disease/visual coronary artery calcification angina pectoris , stable clinically 4. Diastolic LV dysfunction with clinical class 0 NYHA classification LV failure 5. HTN 6. Complete LBBB 7. Hepatic encephalopathy, cirrhosis and ascites 8. Hepatitis C 9. CKD 10. Thrombocytopenia/Coagulopathy related to above noted chronic liver disease PLAN: 1. Continue Nadolol 40 mg daily for CAD and probable portal HTN. 2. Not a candidate for anti-platelet agent 3. Now off antibiotics for SBP prophylaxis, maintain Lasix 40 bid and Aldactone 100 qd 4. Continue PPI, lactulose/rifiximin
[2019-10-03] MEDS: FUROSEMIDE 40 MG TABLET (FP) PO SCH ×2 (06:01→13:57)
[2019-10-03] MEDS: RIFAXIMIN 200 MG TABLET PO SCH ×3 (06:02→21:35)
[2019-10-03] MEDS: INSULIN SLIDING SCALE (NOVOLOG) 1 VIAL SQ SCH ×4 (06:02→21:34)
[2019-10-03] MEDS ORDERED: PT OWN MED DRAWER 7, Y5N ONE ×2 (09:20→21:23)
[2019-10-03] MEDS: SPIRONOLACTONE 25 MG TABLET (FP) PO SCH (09:26)
[2019-10-03] MEDS: PANTOPRAZOLE SODIUM 40 MG VIAL IVPUSH SCH ×2 (09:30→21:34)
[2019-10-03] MEDS: NADOLOL 40 MG TABLET (FP) PO SCH (09:30)
[2019-10-03] MEDS: LACTULOSE 20 GM/30 ML UDC (FOR ORAL USE ONLY) PO SCH ×4 (09:30→21:26)
--- NOTE | 2019-10-03 14:47 | PN ---
Progress Note, Physician - Current Medication List Current Medications: Active Medications Furosemide (Lasix -) 40 mg PO BID@0600,1400 [facility] Last Admin: 10/03/19 13:57 Dose: 40 mg Insulin Aspart (Novolog Vial Sliding Scale -) 1 vial SQ ACHS [facility]; Protocol Last Admin: 10/03/19 11:33 Dose: 2 units Lactulose (Cephulac (Oral Use)) 20 gm PO QID [facility] Last Admin: 10/03/19 13:56 Dose: Not Given Metoclopramide HCl (Reglan Injection -) 10 mg IVPUSH Q8H PRN PRN Reason: NAUSEA AND/OR VOMITING Nadolol (Corgard -) 40 mg PO DAILY [facility] Last Admin: 10/03/19 09:30 Dose: 40 mg Pantoprazole Sodium (Protonix Iv) 40 mg IVPUSH BID [facility] Last Admin: 10/03/19 09:30 Dose: 40 mg Rifaximin (Xifaxan -) 200 mg PO TID [facility] Last Admin: 10/03/19 13:57 Dose: 200 mg Spironolactone (Aldactone -) 100 mg PO DAILY [facility] Last Admin: 10/03/19 09:26 Dose: 100 mg - Objective Vital Signs: Vital Signs Temperature 98.1 F 10/03/19 08:00 Pulse Rate 54 L 10/03/19 14:02 Respiratory Rate 12 10/03/19 14:02 Blood Pressure 116/53 L 10/03/19 14:02 O2 Sat by Pulse Oximetry (%) 100 10/03/19 09:00 Constitutional: Yes: No Distress HENT: Yes: Atraumatic Neck: Yes: Supple Cardiovascular: Yes: Regular Rate and Rhythm Respiratory: Yes: CTA Bilaterally Gastrointestinal: Yes: Normal Bowel Sounds Extremities: Yes: WNL Neurological: Yes: Alert, Oriented Labs: CBC, BMP 09/30/19 05:58 10/01/19 06:30 INR, PTT INR 1.25 (0.83-1.09) H 09/21/19 06:33 Fibrinogen 175.0 mg/dL (238-498) L 09/19/19 06:20 Problem List - Problems (1) Altered mental status Assessment/Plan: DOING WELL Code(s): R41.82 - ALTERED MENTAL STATUS, UNSPECIFIED Qualifiers: Altered mental status type: unspecified Qualified Code(s): R41.82 - Altered mental status, unspecified (2) Aphasia Code(s): R47.01 - APHASIA (3) Hepatic encephalopathy Assessment/Plan: alert on meds Code(s): K72.90 - HEPATIC FAILURE, UNSPECIFIED WITHOUT COMA (4) Cirrhosis Assessment/Plan: on meds Code(s): K74.60 - UNSPECIFIED CIRRHOSIS OF LIVER Qualifiers: Hepatic cirrhosis type: unspecified hepatic cirrhosis Ascites presence: with ascites Qualified Code(s): K74.60 - Unspecified cirrhosis of liver; R18.8 - Other ascites (5) Hepatitis C Code(s): B19.20 - UNSPECIFIED VIRAL HEPATITIS C WITHOUT HEPATIC COMA Qualifiers: Viral hepatitis chronicity: chronic Hepatic coma status: without hepatic coma Qualified Code(s): B18.2 - Chronic viral hepatitis C (6) Hypertension Assessment/Plan: on meds monitor Code(s): I10 - ESSENTIAL (PRIMARY) HYPERTENSION Qualifiers: Hypertension type: essential hypertension Qualified Code(s): I10 - Essential (primary) hypertension (7) Anemia Code(s): D64.9 - ANEMIA, UNSPECIFIED (8) Bacteremia Code(s): R78.81 - BACTEREMIA (9) GI bleeding Code(s): K92.2 - GASTROINTESTINAL HEMORRHAGE, UNSPECIFIED (10) Ascites Code(s): R18.8 - OTHER ASCITES Qualifiers: Ascites type: other type Qualified Code(s): R18.8 - Other ascites
--- NOTE | 2019-10-03 14:48 | DS ---
Physical Examination Vital Signs: Vital Signs Temperature 98.1 F 10/03/19 08:00 Pulse Rate 54 L 10/03/19 14:02 Respiratory Rate 12 10/03/19 14:02 Blood Pressure 116/53 L 10/03/19 14:02 O2 Sat by Pulse Oximetry (%) 100 10/03/19 09:00 Labs: CBC, BMP 09/30/19 05:58 10/01/19 06:30 Discharge Summary Problems reviewed: Yes Reason For Visit: AMS Current Active Problems Acute blood loss anemia (Acute) Acute gastric ulcer with hemorrhage (Acute) Altered mental status (Acute) Anemia (Acute) Ascites (Acute) Bacteremia (Acute) GI bleeding (Acute) Hemorrhagic shock (Acute) LBBB (left bundle branch block) (Acute) Portal hypertension (Acute) Rectal bleeding (Acute) Respiratory failure (Acute) Condition: Stable - Instructions Diet, Activity, Other Instructions: follow up with his gi team at [facility] follow up pmd 2-3 days Referrals: Sal Fish MD [Staff Physician] - Martinez Horan MD [Primary Care Provider] - - Home Medications Comprehensive Discharge Medication List: Ambulatory Orders Donepezil HCl [Aricept] 5 mg PO DAILY 09/13/19 Furosemide [Lasix -] 40 mg PO BID 09/13/19 Insulin (Levemir) [Levemir Vial] 6 unit SQ DAILY 09/13/19 Insulin (Novolog) [Novolog] 2 units SQ AC 09/13/19 Lactulose (Oral Use) [Cephulac -] 20 gm PO QID 09/13/19 Pantoprazole Sodium [Protonix] 40 mg PO DAILY 09/13/19 Salmeterol/Fluticasone [Advair 100Mcg/50Mcg -] 1 puff IH DAILY 09/13/19 Spironolactone 100 mg PO DAILY 09/13/19 Nadolol [Corgard -] 40 mg PO DAILY #30 tablet 09/28/19 Rifaximin [Xifaxan -] 200 mg PO TID #90 tablet 09/28/19
[2019-10-03 18:32] LABS: BASO % 0.8 % (0-2.0); EOS % 4.2 % (0-4.5); HEMATOCRIT 31.6 % (35.4-49); HEMOGLOBIN 10.4 GM/dL (11.7-16.9); LYMPH % 16.4 % (8-40); MCH 30.1 pg (25.7-33.7); MCHC 32.9 g/dl (32.0-35.9); MEAN CELL VOLUME 91.4 fl (80-96); MONO % 6.7 % (3.8-10.2); NEUT % 71.9 % (42.8-82.8); PLATELET COUNT 61 K/MM3 (134-434); RBC 3.45 M/mm3 (4.00-5.60); RDW 19.5 % (11.9-15.9); WHITE BLOOD COUNT 4.4 K/mm3 (4.0-10.0)
[2019-10-03 18:59] LABS: ALBUMIN 2.4 g/dl (3.4-5.0); BLOOD UREA NITROGEN 29.2 mg/dL (7-18); CALCIUM 8.4 mg/dL (8.5-10.1); CREATININE 1.3 mg/dL (0.55-1.3); POTASSIUM 3.9 mmol/L (3.5-5.1); TOT PROT 6.3 g/dl (6.4-8.2)
[2019-10-04] MEDS ORDERED: PT OWN MED DRAWER 7, Y5N ONE ×2 (06:17→10:42)
[2019-10-04] MEDS: FUROSEMIDE 40 MG TABLET (FP) PO SCH ×2 (06:24→13:00)
[2019-10-04] MEDS: RIFAXIMIN 200 MG TABLET PO SCH ×2 (06:24→13:00)
[2019-10-04] MEDS: INSULIN SLIDING SCALE (NOVOLOG) 1 VIAL SQ SCH ×2 (06:28→12:16)
[2019-10-04 07:24] VITALS: TEMP 97.9
--- NOTE | 2019-10-04 08:41 | PN ---
Progress Note (short form) - Note Progress Note: Neurology Chief Complaint: Altered Mental Status HPI: 68 y/o M with hx of IDDM, HCV, cirrhosis, asthma presenting to the ED for altered mental status from the night prior to admission. per notes, the reported he has appeared more lethargic since evening prior and had to be woken up out of bed to take meds and eat. However he was able to be put to sleep without issues. She noted that he had a fall out of bed. The morning of admission, the patient didnt wake up and was somnolent. He also had emesis and per , reported abd pain. She also states that he hasnt had a BM in 3days despite lactulose. On arrival patient was vomiting and required suctioning. states patient had no fever, cough, SOB, chest pain, hematemesis, BPR, dysuria. CT head was completed and did not show acute changes. Of note, patient was admitted to [facility] week prior to admission for therapeutic paracentesis. Was noted to have sscleral icterus, slight jaundice. Most likely toxic metabolic encephalopathy. On labs, ammonia level normal but hemoglobin and hematocrit reduced and suspicious for anemia. GI recommended Rifaximin aand lactulose, viral hepatitis panels as well as possible endoscopy. Also mention of positive blood cultures and ID consult. Patient with postive occult stool and inquired emergent management overnight. Previously in ICU, after rectal bleeding, coffee ground emesis noted, pt went for STAT EGD, received multiple blood transfusions and blood products. Remains intubated and on mechanical ventilation in ICU. Continued monitoring of H/H which has stabilized, GI note reviewed and mentioned continued octeotride. Surgery note reviewed and mentioned EGD may be considered for rebleed but if surgery needed may require tertiary care facility. No longer on antibiotics. Has been extubated since and comfortable appearing on room air. Patient transferred to telemetry care. He still is awake, alert, can tell me month and year as well as location. Recognizes examiner, mental status improved and appears to be near baseline at this time. Remains on Rifaximin and lactulose. Active Medications Furosemide (Lasix -) 40 mg PO BID@0600,1400 [facility] Last Admin: 10/04/19 06:24 Dose: 40 mg Insulin Aspart (Novolog Vial Sliding Scale -) 1 vial SQ [facility]; Protocol Last Admin: 10/04/19 06:28 Dose: 2 units Lactulose (Cephulac (Oral Use)) 20 gm PO QID [facility] Last Admin: 10/03/19 21:26 Dose: Not Given Metoclopramide HCl (Reglan Injection -) 10 mg IVPUSH Q8H PRN PRN Reason: NAUSEA AND/OR VOMITING Nadolol (Corgard -) 40 mg PO DAILY [facility] Last Admin: 10/03/19 09:30 Dose: 40 mg Pantoprazole Sodium (Protonix Iv) 40 mg IVPUSH BID [facility] Last Admin: 10/03/19 21:34 Dose: 40 mg Rifaximin (Xifaxan -) 200 mg PO TID [facility] Last Admin: 10/04/19 06:24 Dose: 200 mg Spironolactone (Aldactone -) 100 mg PO DAILY [facility] Last Admin: 10/03/19 09:26 Dose: 100 mg *Physical Exam Vital Signs Period Temp Pulse Resp BP Sys/Shen Pulse Ox Last 24 Hr 97.7 F-98.1 F 48-56 12-18 112-139/52-63 100-100 GENERAL: sedated and on ventilation HEAD: No signs of trauma, normocephalic, atraumatic EYES: EOMI, scleral icterus, conjunctiva clear ENT: Auricles normal inspection, hearing grossly normal, nares patent, oropharynx clear without exudates. Moist mucosa NECK: Normal ROM, no lymphadenopathy LUNGS: No increased work of breathing, symmetrical chest rise, clear to auscultation bilaterally, no wheezes, crackles or rhonchi HEART: Regular rate and rhythm, normal S1 and S2, no murmurs, peripheral pulses 2+ and equal bilaterally. ABDOMEN: Soft, nondistended, nontender, normoactive bowel sounds. No guarding, no rebound. No masses. No CVAT EXTREMITIES: Normal inspection, Normal range of motion, no edema. No clubbing or cyanosis. NEUROLOGICAL: sedated and on mechanical vent, moves extremities to pain, not following commands, no abnormal movements SKIN: jaundice CBCD WBC 4.4 K/mm3 (4.0-10.0) 10/03/19 18:16 RBC 3.45 M/mm3 (4.00-5.60) L 10/03/19 18:16 Hgb 10.4 GM/dL (11.7-16.9) L 10/03/19 18:16 Hct 31.6 % (35.4-49) L 10/03/19 18:16 MCV 91.4 fl (80-96) 10/03/19 18:16 MCHC 32.9 g/dl (32.0-35.9) 10/03/19 18:16 RDW 19.5 % (11.9-15.9) H 10/03/19 18:16 Plt Count 61 K/MM3 (134-434) L D 10/03/19 18:16 MPV 10.0 fl (7.5-11.1) 10/03/19 18:16 CMP Sodium 139 mmol/L (136-145) 10/03/19 18:16 Potassium 3.9 mmol/L (3.5-5.1) 10/03/19 18:16 Chloride 105 mmol/L (98-107) 10/03/19 18:16 Carbon Dioxide 30 mmol/L (21-32) 10/03/19 18:16 Anion Gap 4 MMOL/L (8-16) L 10/03/19 18:16 BUN 29.2 mg/dL (7-18) H 10/03/19 18:16 Creatinine 1.3 mg/dL (0.55-1.3) 10/03/19 18:16 Random Glucose 227 mg/dL (74-106) H 10/03/19 18:16 Calcium 8.4 mg/dL (8.5-10.1) L 10/03/19 18:16 Total Bilirubin 2.0 mg/dL (0.2-1) H 10/03/19 18:16 AST 83 U/L (15-37) H 10/03/19 18:16 ALT 47 U/L (13-61) 10/03/19 18:16 Alkaline Phosphatase 268 U/L (45-117) H 10/03/19 18:16 Total Protein 6.3 g/dl (6.4-8.2) L 10/03/19 18:16 Albumin 2.4 g/dl (3.4-5.0) L 10/03/19 18:16 CARDIAC ENZYMES Creatine Kinase 268 U/L (26-308) 09/13/19 12:45 Troponin I < 0.02 ng/ml (0.00-0.05) 09/13/19 12:45 Medical Decision Making 68 y/o M with hx of IDDM, HCV, cirrhosis, asthma presenting to the ED for altered mental status from the night prior to admission. per notes, the reported he has appeared more lethargic since evening prior and had to be woken up out of bed to take meds and eat. However he was able to be put to sleep without issues. She noted that he had a fall out of bed. The morning of admission, the patient didnt wake up and was somnolent. He also had emesis and per , reported abd pain. She also states that he hasnt had a BM in 3days despite lactulose. On arrival patient was vomiting and required suctioning. states patient had no fever, cough, SOB, chest pain, hematemesis, BPR, dysuria. CT head was completed and did not show acute changes. Of note, patient was admitted to [facility] week prior to admission for therapeutic paracentesis. Was noted to have sscleral icterus, slight jaundice. Most likely toxic metabolic encephalopathy. On labs, ammonia level normal but hemoglobin and hematocrit reduced and suspicious for anemia. GI recommended Rifaximin aand lactulose, viral hepatitis panels as well as possible endoscopy. Also mention of positive blood cultures and ID consult. Patient with postive occult stool and inquired emergent management overnight. Previously in ICU, after rectal bleeding, coffee ground emesis noted, pt went for STAT EGD, received multiple blood transfusions and blood products. Remains intubated and on mechanical ventilation in ICU. Continued monitoring of H/H which has stabilized, GI note reviewed and mentioned continued octeotride. Surgery note reviewed and mentioned EGD may be considered for rebleed but if surgery needed may require tertiary care facility. No longer on antibiotics. Has been extubated since and comfortable appearing on room air. Patient transferred to telemetry care. He still is awake, alert, can tell me month and year as well as location. Recognizes examiner, mental status improved and appears to be near baseline at this time. Remains on Rifaximin and lactulose. Weekend notes reviewed. Continue GI and hematologic optimization. Monitor H and H, tranfuse as needed. Continue to monitor mental status, neurologically stable and seems to be at baseline. On lactulose and rifamixin. Dispo per primary and heel caser (
[2019-10-04] MEDS: SPIRONOLACTONE 25 MG TABLET (FP) PO SCH (09:44)
[2019-10-04] MEDS: PANTOPRAZOLE SODIUM 40 MG VIAL IVPUSH SCH (09:45)
[2019-10-04] MEDS: LACTULOSE 20 GM/30 ML UDC (FOR ORAL USE ONLY) PO SCH ×2 (09:45→13:00)
--- NOTE | 2019-10-04 10:21 | PN ---
Progress Note, Physician Chief Complaint: Events noted Not in distress History of Present Illness: Patient was seen and examined. Awake. Chart was reviewed Denies chest pain or SOB - Current Medication List Current Medications: Active Medications Furosemide (Lasix -) 40 mg PO BID@0600,1400 [facility] Last Admin: 10/04/19 06:24 Dose: 40 mg Insulin Aspart (Novolog Vial Sliding Scale -) 1 vial SQ ACHS [facility]; Protocol Last Admin: 10/04/19 06:28 Dose: 2 units Lactulose (Cephulac (Oral Use)) 20 gm PO QID [facility] Last Admin: 10/04/19 09:45 Dose: 20 gm Metoclopramide HCl (Reglan Injection -) 10 mg IVPUSH Q8H PRN PRN Reason: NAUSEA AND/OR VOMITING Nadolol (Corgard -) 40 mg PO DAILY [facility] Last Admin: 10/03/19 09:30 Dose: 40 mg Pantoprazole Sodium (Protonix Iv) 40 mg IVPUSH BID [facility] Last Admin: 10/04/19 09:45 Dose: 40 mg Rifaximin (Xifaxan -) 200 mg PO TID [facility] Last Admin: 10/04/19 06:24 Dose: 200 mg Spironolactone (Aldactone -) 100 mg PO DAILY [facility] Last Admin: 10/04/19 09:44 Dose: 100 mg - Objective Vital Signs: Vital Signs Temperature 97.9 F 10/04/19 06:00 Pulse Rate 56 L 10/04/19 06:00 Respiratory Rate 16 10/04/19 06:00 Blood Pressure 112/53 L 10/04/19 06:00 O2 Sat by Pulse Oximetry (%) 100 10/03/19 22:00 HENT: Yes: Atraumatic Neck: Yes: Supple Cardiovascular: Yes: Regular Rate and Rhythm, S1, S2 Respiratory: Yes: CTA Bilaterally Gastrointestinal: Yes: Normal Bowel Sounds, Soft. No: Tenderness Edema: No Labs: CBC, BMP 10/03/19 18:16 10/03/19 18:16 Problem List - Problems (1) Acute gastric ulcer with hemorrhage Code(s): K25.0 - ACUTE GASTRIC ULCER WITH HEMORRHAGE (2) Altered mental status Code(s): R41.82 - ALTERED MENTAL STATUS, UNSPECIFIED Qualifiers: Altered mental status type: unspecified Qualified Code(s): R41.82 - Altered mental status, unspecified (3) Anemia Code(s): D64.9 - ANEMIA, UNSPECIFIED (4) GI bleeding Code(s): K92.2 - GASTROINTESTINAL HEMORRHAGE, UNSPECIFIED (5) LBBB (left bundle branch block) Code(s): I44.7 - LEFT BUNDLE-BRANCH BLOCK, UNSPECIFIED (6) Hepatic encephalopathy Code(s): K72.90 - HEPATIC FAILURE, UNSPECIFIED WITHOUT COMA (7) CAD (coronary artery disease) Code(s): I25.10 - ATHSCL HEART DISEASE OF [place] CORONARY ARTERY W/O ANG PCTRS (8) Cirrhosis Code(s): K74.60 - UNSPECIFIED CIRRHOSIS OF LIVER Qualifiers: Hepatic cirrhosis type: unspecified hepatic cirrhosis Ascites presence: with ascites Qualified Code(s): K74.60 - Unspecified cirrhosis of liver; R18.8 - Other ascites (9) Hepatitis C Code(s): B19.20 - UNSPECIFIED VIRAL HEPATITIS C WITHOUT HEPATIC COMA Qualifiers: Viral hepatitis chronicity: chronic Hepatic coma status: without hepatic coma Qualified Code(s): B18.2 - Chronic viral hepatitis C (10) Hypertension Code(s): I10 - ESSENTIAL (PRIMARY) HYPERTENSION Qualifiers: Hypertension type: essential hypertension Qualified Code(s): I10 - Essential (primary) hypertension Assessment/Plan 1. Post acute respiratory failure 2. Acute blood loss anemia/GI bleed - gastric ulcer, duodenal AVM post clipping and cautery 3. Coronary artery disease/visual coronary artery calcification angina pectoris , stable clinically 4. Diastolic LV dysfunction with clinical class 0 NYHA classification LV failure 5. HTN 6. Complete LBBB 7. Hepatic encephalopathy, cirrhosis and ascites 8. Hepatitis C 9. CKD 10. Thrombocytopenia/Coagulopathy related to chronic liver disease PLAN: 1. Continue Nadolol 40 mg daily for CAD and probable portal HTN. 2. Not a candidate for anti-platelet agent 3. Maintain Lasix 40 mg BID and Aldactone 100 mg QD 4. Continue PPI and lactulose/rifiximin Sandeep Yen MD
[2019-10-04] MEDS: NADOLOL 40 MG TABLET (FP) PO SCH (10:54)
--- NOTE | 2019-10-04 13:40 | PN ---
Progress Note, Physician History of Present Illness: Pt seen and examined at bedside. He is awake and appears comfortable. He denies shortness of breath. - Current Medication List Current Medications: Active Medications Furosemide (Lasix -) 40 mg PO BID@0600,1400 [facility] Last Admin: 10/04/19 13:00 Dose: 40 mg Insulin Aspart (Novolog Vial Sliding Scale -) 1 vial SQ [facility]; Protocol Last Admin: 10/04/19 12:16 Dose: 4 units Lactulose (Cephulac (Oral Use)) 20 gm PO QID [facility] Last Admin: 10/04/19 13:00 Dose: 20 gm Metoclopramide HCl (Reglan Injection -) 10 mg IVPUSH Q8H PRN PRN Reason: NAUSEA AND/OR VOMITING Nadolol (Corgard -) 40 mg PO DAILY [facility] Last Admin: 10/04/19 10:54 Dose: 40 mg Pantoprazole Sodium (Protonix Iv) 40 mg IVPUSH BID [facility] Last Admin: 10/04/19 09:45 Dose: 40 mg Rifaximin (Xifaxan -) 200 mg PO TID [facility] Last Admin: 10/04/19 13:00 Dose: 200 mg Spironolactone (Aldactone -) 100 mg PO DAILY [facility] Last Admin: 10/04/19 09:44 Dose: 100 mg - Objective Vital Signs: Vital Signs Temperature 97.9 F 10/04/19 10:00 Pulse Rate 56 L 10/04/19 10:00 Respiratory Rate 16 10/04/19 10:00 Blood Pressure 112/53 L 10/04/19 10:00 O2 Sat by Pulse Oximetry (%) 100 10/04/19 09:00 Constitutional: Yes: Calm Eyes: Yes: Conjunctiva Clear HENT: Yes: Atraumatic Neck: Yes: Supple Cardiovascular: Yes: S1, S2 Respiratory: Yes: CTA Bilaterally Gastrointestinal: Yes: Ascites Genitourinary: Yes: WNL Musculoskeletal: Yes: WNL Edema: Yes Edema: LLE: 1+, RLE: 1+ Neurological: Yes: Oriented Psychiatric: Yes: Oriented Labs: CBC, BMP 10/03/19 18:16 10/03/19 18:16 INR, PTT INR 1.25 (0.83-1.09) H 09/21/19 06:33 Fibrinogen 175.0 mg/dL (238-498) L 09/19/19 06:20 Assessment/Plan Current Medications Generic Name Dose Route Start Last Admin Trade Name Freq PRN Reason Stop Dose Admin Furosemide 40 mg 09/30/19 14:00 10/04/19 13:00 Lasix - PO 40 mg BID@0600,1400 [facility] Administration Insulin Aspart 1 vial 09/25/19 07:00 10/04/19 12:16 Novolog Vial Sliding Scale - SQ 4 units ACHS [facility] Administration Protocol Lactulose 20 gm 09/24/19 22:00 10/04/19 13:00 Cephulac (Oral Use) PO 20 gm QID [facility] Administration Metoclopramide HCl 10 mg 09/24/19 23:22 Reglan Injection - IVPUSH Q8H PRN NAUSEA AND/OR VOMITING Nadolol 40 mg 09/26/19 10:00 10/04/19 10:54 Corgard - PO 40 mg DAILY [facility] Administration Pantoprazole Sodium 40 mg 09/25/19 10:00 10/04/19 09:45 Protonix Iv IVPUSH 40 mg BID [facility] Administration Rifaximin 200 mg 09/24/19 22:00 10/04/19 13:00 Xifaxan - PO 200 mg TID [facility] Administration Spironolactone 100 mg 10/01/19 10:00 10/04/19 09:44 Aldactone - PO 100 mg DAILY [facility] Administration Impression 1. [place] 2. dm 3. gi bleed 4. resp failure 5. hep c 6. liver cirrhosis 7. hypernatremia Plan - cont with lasix and aldactone - will need GI follow up - discussed diet with pt - monitor lytes - renal function stable
--- NOTE | 2019-10-04 13:58 | PN ---
Progress Note (short form) - Note Progress Note: Resting in NAD. Denies shortness of breath, cough or wheezing. No acute events overnight. Intake & Output 10/01/19 10/02/19 10/03/19 10/04/19 23:59 23:59 23:59 23:59 Intake Total 310 360 380 120 Output Total 100 400 800 120 Balance 210 -40 -420 0 Last Vital Signs Temp Pulse Resp BP Pulse Ox 97.9 F 56 L 16 112/53 L 100 10/04/19 10:00 10/04/19 10:00 10/04/19 10:00 10/04/19 10:00 10/04/19 09:00 Active Medications Furosemide (Lasix -) 40 mg PO BID@0600,1400 [facility] Last Admin: 10/04/19 13:00 Dose: 40 mg Insulin Aspart (Novolog Vial Sliding Scale -) 1 vial SQ [facility]; Protocol Last Admin: 10/04/19 12:16 Dose: 4 units Lactulose (Cephulac (Oral Use)) 20 gm PO QID [facility] Last Admin: 10/04/19 13:00 Dose: 20 gm Metoclopramide HCl (Reglan Injection -) 10 mg IVPUSH Q8H PRN PRN Reason: NAUSEA AND/OR VOMITING Nadolol (Corgard -) 40 mg PO DAILY [facility] Last Admin: 10/04/19 10:54 Dose: 40 mg Pantoprazole Sodium (Protonix Iv) 40 mg IVPUSH BID [facility] Last Admin: 10/04/19 09:45 Dose: 40 mg Rifaximin (Xifaxan -) 200 mg PO TID [facility] Last Admin: 10/04/19 13:00 Dose: 200 mg Spironolactone (Aldactone -) 100 mg PO DAILY [facility] Last Admin: 10/04/19 09:44 Dose: 100 mg Gen: NAD at rest Heart: RRR Lung: decreased breath sounds at the bases Abd: soft, nontender Ext: no edema Laboratory Results - last 24 hr 10/03/19 10/03/19 10/03/19 16:02 18:16 18:16 WBC 4.4 RBC 3.45 L Hgb 10.4 L Hct 31.6 L MCV 91.4 MCH 30.1 MCHC 32.9 RDW 19.5 H Plt Count 61 L D MPV 10.0 Absolute Neuts (auto) 3.2 Neutrophils % 71.9 Lymphocytes % 16.4 Monocytes % 6.7 Eosinophils % 4.2 Basophils % 0.8 Nucleated RBC % 0 Sodium 139 Potassium 3.9 Chloride 105 Carbon Dioxide 30 Anion Gap 4 L BUN 29.2 H Creatinine 1.3 Est GFR (CKD-EPI)AfAm 64.07 Est GFR (CKD-EPI)NonAf 55.28 POC Glucometer 180 Random Glucose 227 H Calcium 8.4 L Total Bilirubin 2.0 H AST 83 H ALT 47 Alkaline Phosphatase 268 H Total Protein 6.3 L Albumin 2.4 L 10/03/19 10/04/19 10/04/19 21:05 06:23 12:09 WBC RBC Hgb Hct MCV MCH MCHC RDW Plt Count MPV Absolute Neuts (auto) Neutrophils % Lymphocytes % Monocytes % Eosinophils % Basophils % Nucleated RBC % Sodium Potassium Chloride Carbon Dioxide Anion Gap BUN Creatinine Est GFR (CKD-EPI)AfAm Est GFR (CKD-EPI)NonAf POC Glucometer 206 187 217 Random Glucose Calcium Total Bilirubin AST ALT Alkaline Phosphatase Total Protein Albumin A/P S/P Acute Respiratory Failure GI Bleed Acute Blood Loss Anemia Gastric Ulcer/Duodenal AVM s/p Clipping/Cautery/Epi injection Hepatic Encephalopathy Liver Cirrhosis Thrombocytopenia/Coagulopathy CKD Volume Overload HTN DC planning Dr Rodriguez
[2019-10-04 15:16] VITALS: BP 125/58; PULSE 57
--- NOTE | 2019-10-04 17:52 | DS ---
Physical Examination Vital Signs: Vital Signs Temperature 97.9 F 10/04/19 10:00 Pulse Rate 57 L 10/04/19 14:00 Respiratory Rate 16 10/04/19 14:00 Blood Pressure 125/58 L 10/04/19 14:00 O2 Sat by Pulse Oximetry (%) 100 10/04/19 09:00 Constitutional: Yes: No Distress HENT: Yes: Atraumatic Neck: Yes: Supple Cardiovascular: Yes: Regular Rate and Rhythm Respiratory: Yes: CTA Bilaterally Gastrointestinal: Yes: Normal Bowel Sounds, Ascites (much improved) Extremities: Yes: WNL Edema: No Peripheral Pulses WNL: Yes Neurological: Yes: Alert, Oriented Labs: CBC, BMP 10/03/19 18:16 10/03/19 18:16 Discharge Summary Problems reviewed: Yes Reason For Visit: AMS Condition: Stable - Instructions Diet, Activity, Other Instructions: follow up with his gi team at [facility] follow up pmd 2-3 days Referrals: Sal Fish MD [Staff Physician] - Martinez Horan MD [Primary Care Provider] - Disposition: RESIDENTIAL FACILITY - Home Medications Comprehensive Discharge Medication List: Ambulatory Orders Donepezil HCl [Aricept] 5 mg PO DAILY 09/13/19 Furosemide [Lasix -] 40 mg PO BID 09/13/19 Insulin (Levemir) [Levemir Vial] 6 unit SQ DAILY 09/13/19 Insulin (Novolog) [Novolog] 2 units SQ AC 09/13/19 Lactulose (Oral Use) [Cephulac -] 20 gm PO QID 09/13/19 Pantoprazole Sodium [Protonix] 40 mg PO DAILY 09/13/19 Salmeterol/Fluticasone [Advair 100Mcg/50Mcg -] 1 puff IH DAILY 09/13/19 Spironolactone 100 mg PO DAILY 09/13/19 Nadolol [Corgard -] 40 mg PO DAILY #30 tablet 09/28/19 Rifaximin [Xifaxan -] 200 mg PO TID #90 tablet 09/28/19 pr snf
== END 2019-10-04 15:41 | DRG 377 ==
LOC: JER 11:42 → JERBED 15:13 → J7W 16:53 → JICU 09-17 11:43 → J2W 09-24 22:04
PROVIDERS: ADMIT Internal Medicine; ATTEND Internal Medicine
PROC: 5A1955Z Respiratory Ventilation, Greater than 96 Consecutive Hours (ICD-10-PCS; 2019-09-17)
PROC: 0W3P8ZZ Control Bleeding in Gastrointestinal Tract, Via Natural or Artificial Opening Endoscopic (ICD-10-PCS; 2019-09-17)
PROC: 3E0G8GC Introduction of Other Therapeutic Substance into Upper GI, Via Natural or Artificial Opening Endoscopic (ICD-10-PCS; 2019-09-17)
PROC: 30233K1 Transfusion of Nonautologous Frozen Plasma into Peripheral Vein, Percutaneous Approach (ICD-10-PCS; 2019-09-17)
PROC: 30233N1 Transfusion of Nonautologous Red Blood Cells into Peripheral Vein, Percutaneous Approach (ICD-10-PCS; 2019-09-17)
PROC: 30233R1 Transfusion of Nonautologous Platelets into Peripheral Vein, Percutaneous Approach (ICD-10-PCS; 2019-09-17)
PROC: 0BH17EZ Insertion of Endotracheal Airway into Trachea, Via Natural or Artificial Opening (ICD-10-PCS; principal; 2019-09-17 14:15)
DX: K31.811 Angiodysplasia of stomach and duodenum with bleeding (principal); J96.00 Acute respiratory failure, unspecified whether with hypoxia or hypercapnia; G93.41 Metabolic encephalopathy; R57.8 Other shock; E87.0 Hyperosmolality and hypernatremia; D62 Acute posthemorrhagic anemia; R18.8 Other ascites; K76.6 Portal hypertension; N17.9 Acute kidney failure, unspecified; D61.818 Other pancytopenia; R47.01 Aphasia; R78.81 Bacteremia; D68.9 Coagulation defect, unspecified; I25.119 Atherosclerotic heart disease of native coronary artery with unspecified angina pectoris; K25.0 Acute gastric ulcer with hemorrhage; E11.9 Type 2 diabetes mellitus without complications; K74.60 Unspecified cirrhosis of liver; K76.0 Fatty (change of) liver, not elsewhere classified; R16.1 Splenomegaly, not elsewhere classified; B19.20 Unspecified viral hepatitis C without hepatic coma; K72.90 Hepatic failure, unspecified without coma; R41.82 Altered mental status, unspecified; D69.6 Thrombocytopenia, unspecified; I44.7 Left bundle-branch block, unspecified; J45.909 Unspecified asthma, uncomplicated; E88.09 Other disorders of plasma-protein metabolism, not elsewhere classified; I12.9 Hypertensive chronic kidney disease with stage 1 through stage 4 chronic kidney disease, or unspecified chronic kidney disease; E11.22 Type 2 diabetes mellitus with diabetic chronic kidney disease; N18.9 Chronic kidney disease, unspecified; Z87.11 Personal history of peptic ulcer disease
CPT/HCPCS: 36415; 36430; 36511; 36600; 70450-TC; 71045-TC-FY; 74176-TC; 76705-TC; 76775-TC; 76856-TC; 80048; 80053; 80061; 80076; 80307; 81003; 82040; 82105; 82140; 82272; 82436; 82550; 82553; 82565; 82803; 82962; 83721; 83735; 84100; 84133; 84300; 84443; 84484; 85025; 85027; 85384; 85610; 85730; 86704; 86706; 86707; 86708; 86709; 86850; 86900; 86901; 86922; 87040; 87086; 87186; 87340; 87522; 93005; 93010; 93306-TC; 94002; 97116-GP; 97161-GP; 99284-25; J1644; J7030; P9017; P9034; P9038; P9058